=== PATIENT | male | born 1950 | race Hispanic/Latino ===

== ENCOUNTER 2018-04-14 13:51 | Emergency (ER) | payer OTHER ==
[2018-04-14] MEDS ORDERED: ASPIRIN PO ONE (14:10)
[2018-04-14 14:43] LABS: Basophils % (Auto) 0.4 % (0.0-1.8); Eosinophils % (Auto) 0.4 % (0.0-4.3); Hematocrit 41.4 % (35.5-45.6); Hemoglobin 14.1 gm/dl (11.8-15.2); Lymphocytes # (Auto) 1.2 K/mm3 (1.2-5.4); Lymphocytes % (Auto) 12.1 % (13.4-35.0); Mean Corpuscular HGB Conc 34 % (32-34); Mean Corpuscular Volume 84 fl (84-94); Monocytes # (Auto) 0.5 K/mm3 (0.0-0.8); Monocytes % (Auto) 5.6 % (0.0-7.3); Platelet Count 273 K/mm3 (140-440); Red Blood Count 4.93 M/mm3 (3.65-5.03)
[2018-04-14 14:59] LABS: BUN/Creatinine Ratio 19; Blood Urea Nitrogen 15 mg/dL (9-20); Calcium 9.1 mg/dL (8.4-10.2); Hemolysis Index 0
[2018-04-14] MEDS ORDERED: NITROSTAT SL PRN (15:47)
--- NOTE | 2018-04-14 15:47 | Emergency Department Report ---
ED General Adult HPI - General Chief complaint: Chest Pain Stated complaint: BODY PAIN Time Seen by Provider: 04/14/18 14:26 Source: patient, EMS Mode of arrival: Stretcher Limitations: Other - History of Present Illness Initial comments: Patient presents to the emergency department with chief complaint of chest pain. The patient was being escorted by [facility] police and states that his chest pain has been intermittent for the last week or so but became worse today while being arrested. Patient denies shortness of breath, abdominal pain, or headache. The patient states he thinks he has high blood pressure and diabetes. -: Gradual Location: chest Radiation: non-radiation Severity scale (0 -10): 8 Quality: other (pressure) Consistency: constant Improves with: none Worsens with: none Associated Symptoms: denies other symptoms Treatments Prior to Arrival: none - Related Data Allergies Allergy/AdvReac Type Severity Reaction Status Date / Time No Known Allergies Allergy Unverified 04/14/18 14:09 ED Review of Systems ROS: Stated complaint: BODY PAIN Other details as noted in HPI Comment: All other systems reviewed and negative Constitutional: denies: chills, fever Eyes: denies: eye pain, eye discharge, vision change ENT: denies: ear pain, throat pain Respiratory: denies: cough, shortness of breath, wheezing Cardiovascular: chest pain. denies: palpitations Endocrine: no symptoms reported Gastrointestinal: denies: abdominal pain, nausea, diarrhea Genitourinary: denies: urgency, dysuria Musculoskeletal: denies: back pain, joint swelling, arthralgia Skin: denies: rash, lesions Neurological: denies: headache, weakness, paresthesias Psychiatric: denies: anxiety, depression Hematological/Lymphatic: denies: easy bleeding, easy bruising ED Past Medical Hx - Past Medical History Previous Medical History?: Yes Additional medical history: morbid obesity - Social History Smoking Status: Never Smoker Substance Use Type: None ED Physical Exam - General Limitations: Other General appearance: alert, in no apparent distress - Head Head exam: Present: atraumatic, normocephalic - Eye Eye exam: Present: normal appearance, PERRL, EOMI - ENT ENT exam: Present: mucous membranes moist - Neck Neck exam: Present: normal inspection - Respiratory Respiratory exam: Present: normal lung sounds bilaterally. Absent: respiratory distress, wheezes, rales - Cardiovascular Cardiovascular Exam: Present: regular rate, normal rhythm. Absent: systolic murmur, diastolic murmur, rubs, gallop - GI/Abdominal GI/Abdominal exam: Present: soft, normal bowel sounds. Absent: distended, tenderness - Rectal Rectal exam: Present: deferred - Extremities Exam Extremities exam: Present: normal inspection, other (pitting edema) - Back Exam Back exam: Present: normal inspection - Neurological Exam Neurological exam: Present: alert, oriented X3, CN II-XII intact. Absent: motor sensory deficit - Psychiatric Psychiatric exam: Present: normal affect, normal mood - Skin Skin exam: Present: warm, dry, intact, normal color. Absent: rash ED Course Vital Signs 04/14/18 14:25 Temperature 97.9 F Pulse Rate 96 H Respiratory 26 H Rate Blood Pressure 126/76 [Left] O2 Sat by Pulse 98 Oximetry ED Medical Decision Making - Lab Data Result diagrams: 04/14/18 14:35 04/14/18 14:35 Lab Results 04/14/18 04/14/18 Range/Units 14:35 14:35 WBC 9.5 (4.5-11.0) K/mm3 RBC 4.93 (3.65-5.03) M/mm3 Hgb 14.1 (11.8-15.2) gm/dl Hct 41.4 (35.5-45.6) % MCV 84 (84-94) fl MCH 29 (28-32) pg MCHC 34 (32-34) % RDW 15.0 (13.2-15.2) % Plt Count 273 (140-440) K/mm3 Lymph % (Auto) 12.1 L (13.4-35.0) % [place] % (Auto) 5.6 (0.0-7.3) % Eos % (Auto) 0.4 (0.0-4.3) % Baso % (Auto) 0.4 (0.0-1.8) % Lymph # 1.2 (1.2-5.4) K/mm3 [place] # 0.5 (0.0-0.8) K/mm3 Eos # 0.0 (0.0-0.4) K/mm3 Baso # 0.0 (0.0-0.1) K/mm3 Seg Neutrophils % 81.5 H (40.0-70.0) % Seg Neutrophils # 7.8 H (1.8-7.7) K/mm3 Sodium 138 (137-145) mmol/L Potassium 4.1 (3.6-5.0) mmol/L Chloride 100.4 (98-107) mmol/L Carbon Dioxide 25 (22-30) mmol/L Anion Gap 17 mmol/L BUN 15 (9-20) mg/dL Creatinine 0.8 (0.8-1.5) mg/dL Estimated GFR > 60 ml/min BUN/Creatinine Ratio 19 % Glucose 95 (75-100) mg/dL Calcium 9.1 (8.4-10.2) mg/dL Troponin T < 0.010 (0.00-0.029) ng/mL - EKG Data -: EKG Interpreted by Me EKG shows normal: sinus rhythm Rate: normal Critical care attestation.: If time is entered above; I have spent that time in minutes in the direct care of this critically ill patient, excluding procedure time. ED Disposition Clinical Impression: Chest pain Disposition: DC-09 OP ADMIT IP TO THIS HOSP Is pt being admited?: Yes Does the pt Need Aspirin: No Condition: Fair Instructions: Chest Pain (ED) Referrals: PRIMARY CARE, [Primary Care Provider] - 3-5 Days
[2018-04-14 19:45] VITALS: BP 120/67
--- NOTE | 2018-04-14 19:58 | Consultation ---
Medications and Allergies Allergies Allergy/AdvReac Type Severity Reaction Status Date / Time No Known Allergies Allergy Unverified 04/14/18 14:09 Home Medications Medication Instructions Recorded Confirmed Last Taken Type No Known Home Medications [No 04/14/18 04/14/18 Unknown History Reported Home Medications] Active Meds: Active Medications Nitroglycerin (Nitrostat) 0.4 mg SL .Q5MIN PRN PRN Reason: Chest Pain Exam - Constitutional Vitals: Temp Pulse Resp BP Pulse Ox 97.7 F 86 17 120/67 100 04/14/18 19:15 04/14/18 19:15 04/14/18 19:15 04/14/18 19:15 04/14/18 19:15 Results - Labs CBC & Chem 7: 04/14/18 14:35 04/14/18 14:35 Labs: Abnormal lab results 04/14/18 Range/Units 14:35 Lymph % (Auto) 12.1 L (13.4-35.0) % Seg Neutrophils % 81.5 H (40.0-70.0) % Seg Neutrophils # 7.8 H (1.8-7.7) K/mm3
[2018-04-14] MEDS ORDERED: PROTONIX PO SCH (22:00)
--- NOTE | 2018-05-19 10:58 | Event Note ---
Date: 04/14/18 67 YO Male presents to ED for evaluation. Pt seen and evaluated in ED and found to have Atypical chest pain with symptoms secondary to GERD. Pt treated IAW chest pain protocol. Serial cardiac enzymes, ekg, telemetry were not indicated of acute cardiac ischemia. Pt medically optimized and back to usual state of health. Pt discharged and instructed to f/u pcp 1wk, and cardiology prn for further testing. ED Physical Exam - General Limitations: Other General appearance: alert, in no apparent distress - Head Head exam: Present: atraumatic, normocephalic - Eye Eye exam: Present: normal appearance, PERRL, EOMI - ENT ENT exam: Present: mucous membranes moist - Neck Neck exam: Present: normal inspection - Respiratory Respiratory exam: Present: normal lung sounds bilaterally. Absent: respiratory distress, wheezes, rales - Cardiovascular Cardiovascular Exam: Present: regular rate, normal rhythm. Absent: systolic murmur, diastolic murmur, rubs, gallop - GI/Abdominal GI/Abdominal exam: Present: soft, normal bowel sounds. Absent: distended, tenderness - Rectal Rectal exam: Present: deferred - Extremities Exam Extremities exam: Present: normal inspection, other (pitting edema) - Back Exam Back exam: Present: normal inspection - Neurological Exam Neurological exam: Present: alert, oriented X3, CN II-XII intact. Absent: motor sensory deficit - Psychiatric Psychiatric exam: Present: normal affect, normal mood - Skin Skin exam: Present: warm, dry, intact, normal color. Absent: rash
== END 2018-04-14 20:40 | disposition admitted as inpatient to this hospital (09) ==
LOC: ED 13:51
DX: R07.89 Other chest pain (principal); E66.01 Morbid (severe) obesity due to excess calories; Z68.45 Body mass index [BMI] 70 or greater, adult
CPT/HCPCS: 36415; 80048; 83880; 84484; 85025; 93005; 93010; 99284

== ENCOUNTER 2020-05-22 08:07 | Inpatient (IN) | payer MEDICARE, OTHER ==
[2020-05-22] MEDS ORDERED: ONDANSETRON 4 MG/2 ML INJ IM ONE (08:32)
[2020-05-22] MEDS ORDERED: MORPHINE 4 MG/1 ML INJ IM ONE (08:32)
--- NOTE | 2020-05-22 08:32 | Emergency Department Report ---
ED General Adult HPI - General Stated complaint: LT SHOULDER PAIN Time Seen by Provider: 05/22/20 08:23 - History of Present Illness Initial comments: Patient is 69 years old male, residential resident with history of CVA and right-sided hemiparesis and hypertension. Patient is bedridden. Patient brought to the emergency room via EMS from his local residential for evaluation of left shoulder pain. Patient stated that pain started few days back. Patient describes his pain as sharp and stated that he feel it in the bone. Patient denied any radiation to the chest or back or neck. Patient denied any recent injury. Patient also denied any shortness of breath, fever or cough. Patient found to be tachycardic with a blood pressure of 89/42. Sepsis protocol immediately initiated. -: days(s) - Related Data Home Medications Medication Instructions Recorded Confirmed Last Taken Povidone-Iodine [Betadine] 1 applicatio TD DAILY 05/22/20 05/22/20 Unknown Previous Rx's Medication Instructions Recorded Last Taken Type Pantoprazole [Protonix TAB] 40 mg PO BID #60 tablet 04/14/18 Unknown Rx Aspirin [Aspirin BABY CHEW TAB] 81 mg PO QDAY #60 tab.chew 11/10/19 Unknown Rx AtorvaSTATin [Lipitor] 80 mg PO QHS #60 tablet 11/10/19 Unknown Rx Clopidogrel [Plavix] 75 mg PO QDAY #60 tablet 11/10/19 Unknown Rx NIFEdipine XL [Procardia Xl] 30 mg PO Q12HR #30 tablet 11/10/19 Unknown Rx carvediloL [Coreg] 3.125 mg PO BID #60 tablet 03/22/20 Unknown Rx Allergies Allergy/AdvReac Type Severity Reaction Status Date / Time No Known Allergies Allergy Unverified 04/14/18 14:09 ED Review of Systems ROS: Stated complaint: LT SHOULDER PAIN Other details as noted in HPI Comment: All other systems reviewed and negative Constitutional: denies: chills, fever Respiratory: denies: cough, shortness of breath, SOB with exertion, wheezing Cardiovascular: denies: chest pain, palpitations, dyspnea on exertion Gastrointestinal: denies: abdominal pain, nausea, vomiting Neurological: denies: headache ED Past Medical Hx - Past Medical History Hx Hypertension: Yes Hx CVA: Yes Additional medical history: morbid obesity - Surgical History Additional Surgical History: R rib sx - Social History Smoking Status: Never Smoker - Medications Home Medications: Home Medications Medication Instructions Recorded Confirmed Last Taken Type Pantoprazole [Protonix TAB] 40 mg PO BID #60 tablet 04/14/18 05/22/20 Unknown Rx Aspirin [Aspirin BABY CHEW TAB] 81 mg PO QDAY #60 tab.chew 11/10/19 05/22/20 Unknown Rx AtorvaSTATin [Lipitor] 80 mg PO QHS #60 tablet 11/10/19 05/22/20 Unknown Rx Clopidogrel [Plavix] 75 mg PO QDAY #60 tablet 11/10/19 05/22/20 Unknown Rx NIFEdipine XL [Procardia Xl] 30 mg PO Q12HR #30 tablet 11/10/19 05/22/20 Unknown Rx carvediloL [Coreg] 3.125 mg PO BID #60 tablet 03/22/20 05/22/20 Unknown Rx Povidone-Iodine [Betadine] 1 applicatio TD DAILY 05/22/20 05/22/20 Unknown History ED Physical Exam - General General appearance: alert, in no apparent distress - Head Head exam: Present: atraumatic, normocephalic, normal inspection - Eye Eye exam: Present: normal appearance, PERRL - ENT ENT exam: Present: normal exam, normal orophraynx, mucous membranes moist - Neck Neck exam: Present: normal inspection. Absent: tenderness, meningismus - Respiratory Respiratory exam: Present: normal lung sounds bilaterally. Absent: respiratory distress, wheezes, rales, rhonchi, chest wall tenderness, accessory muscle use, decreased breath sounds, prolonged expiratory - Cardiovascular Cardiovascular Exam: Present: regular rate, normal rhythm, normal heart sounds - GI/Abdominal GI/Abdominal exam: Present: soft, normal bowel sounds. Absent: distended, tenderness, guarding, rebound, rigid, mass, bruit, pulsatile mass, hernia - Extremities Exam Extremities exam: Present: normal inspection, full ROM, normal capillary refill - Expanded Upper Extremity Exam Left Shoulder Exam: Present: normal inspection, full ROM. Absent: tenderness, swelling, abrasion, laceration, ecchymosis, deformity, crepidus, dislocation, erythema, tenderness over AC joint Upper Arm exam: Present: normal inspection, full ROM - Neurological Exam Neurological exam: Present: alert, oriented X3, motor sensory deficit (chronic) - Skin Skin exam: Present: warm ED Course Vital Signs 05/22/20 05/22/2005/22/21 08:26 08:29 08:31 Temperature 98.5 F Pulse Rate 69 Respiratory 18 Rate Blood Pressure 92/47 Blood Pressure [Left] O2 Sat by Pulse 91 100 98 Oximetry 05/22/20 05/22/20 05/22/20 08:32 08:34 08:38 Temperature Pulse Rate Respiratory 18 16 Rate Blood Pressure Blood Pressure 92/47 [Left] O2 Sat by Pulse 100 100 99 Oximetry 05/22/20 05/22/20 05/22/20 08:45 09:01 09:15 Temperature Pulse Rate 112 H 113 H 113 H Respiratory 38 H 31 H 18 Rate Blood Pressure 82/52 82/52 88/51 Blood Pressure [Left] O2 Sat by Pulse 100 Oximetry 05/22/20 05/22/20 05/22/20 09:16 09:45 10:00 Temperature Pulse Rate 111 H 95 H 93 H Respiratory 22 28 H 23 Rate Blood Pressure 87/44 Blood Pressure 88/51 87/39 [Left] O2 Sat by Pulse 93 91 Oximetry 05/22/20 05/22/20 05/22/20 10:01 10:15 10:31 Temperature Pulse Rate 88 89 88 Respiratory 21 21 21 Rate Blood Pressure 87/39 95/47 95/49 Blood Pressure 95/49 [Left] O2 Sat by Pulse 64 L 71 L 84 Oximetry 05/22/20 05/22/20 05/22/20 10:46 11:01 11:15 Temperature Pulse Rate 120 H 88 82 Respiratory 38 H 19 20 Rate Blood Pressure 82/52 95/49 78/39 Blood Pressure [Left] O2 Sat by Pulse Oximetry 05/22/20 05/22/20 05/22/20 11:31 11:45 11:47 Temperature Pulse Rate 82 88 Respiratory 17 15 Rate Blood Pressure 82/52 98/50 Blood Pressure [Left] O2 Sat by Pulse 81 L 100 Oximetry - Central Line Placement Right Femoral Consent Obtained: emergent situation Time Out Performed: Yes Patient Placed on Monitor/Pulse Ox: Yes Prep: mask, gown, gloves Central Line Prep: Povidone-Iodine 1%, Chlorhexidine scrub, sterile drapes applied Local Anesthesia Used: Lidocaine 2% Central Line Lumen Inserted: triple Reason for Insertion: Volume Resuscitation Central Line Position: good blood return, all ports aspirated, flus, sutured in place with 2-0 Dressing Applied: Tegaderm, sterile gauze/tape Patient Tolerated Procedure: well, no complications Complications: none ED Medical Decision Making - Lab Data Result diagrams: 05/22/20 09:10 05/22/20 09:10 - EKG Data -: EKG Interpreted by Me EKG shows normal: sinus rhythm Rate: tachycardia - EKG Data Interpretation: no acute changes - Radiology Data Radiology results: report reviewed - Medical Decision Making Patient is 69 years old male, residential resident with history of CVA and right-sided hemiparesis and hypertension. Patient is bedridden. Patient br ought to the emergency room via EMS from his local residential for evaluation of left shoulder pain. Patient stated that pain started few days back. Patient describes his pain as sharp and stated that he feel it in the bone. Patient denied any radiation to the chest or back or neck. Patient denied any recent injury. Patient also denied any shortness of breath, fever or cough. Patient found to be tachycardic with a blood pressure of 89/42. Sepsis protocol immediately initiated. Engel catheter draining urine with significant amount of pus. Engel catheter placed. Patient started on normal saline and Zosyn. Patient received 3 L of normal saline with no significant improvement in his blood pressure. Patient started on Levophed. I discussed the patient with , He agreed to admit the patient to medical service for further management. Critical Care Time: Yes Critical care time in (mins) excluding proc time.: 30 Critical care attestation.: If time is entered above; I have spent that time in minutes in the direct care of this critically ill patient, excluding procedure time. ED Disposition Clinical Impression: Septic shock, Acute renal failure, UTI (urinary tract infection) Disposition: OP ADMIT IP TO THIS HOSP Is pt being admited?: Yes Condition: Stable Referrals: NOE LYN MD [Primary Care Provider] - 3-5 Days
[2020-05-22] MEDS: SODIUM CHLORIDE 0.9% 1000 ML IV SOLN IV ONE ×2 (09:11→09:52)
[2020-05-22] MEDS ORDERED: PIPERACILLIN/TAZOBACTAM 3.375 3.375 GM/50 ML BAG IV ONE (09:22)
[2020-05-22 09:27] LABS: Hematocrit 26.8 % (35.5-45.6); Hemoglobin 8.7 gm/dl (11.8-15.2); Mean Corpuscular HGB Conc 33 % (32-34); Mean Corpuscular Volume 74 fl (84-94); Platelet Count 621 K/mm3 (140-440)
[2020-05-22 09:45] LABS: Albumin 2.8 g/dL (3.9-5); Bilirubin,Direct 0.3 mg/dL (0-0.2); Calcium 7.8 mg/dL (8.4-10.2)
[2020-05-22 09:46] LABS: Bilirubin,Urine NEG (Negative); Blood,Urine SM (Negative); Color,Urine Amber (Yellow); Mucus,Urine FEW /HPF; Urobilinogen,Urine < 2.0 mg/dL (<2.0)
[2020-05-22 09:47] LABS: INR 1.25 (0.87-1.13)
[2020-05-22 09:48] LABS: Partial Thromboplastin Time 47.6 Sec. (24.2-36.6)
[2020-05-22 09:49] LABS: Protein,Urine >500 mg/dL (Negative); WBC,Urine > 182.0 /HPF (0.0-6.0)
[2020-05-22 10:05] LABS: Band Neutrophils # (Manual) 0.4 K/mm3; Promyelocytes # (Manual) 59.4 K/mm3; Total Cells Counted 100
[2020-05-22 10:06] LABS: Hypochromasia 1+
[2020-05-22 10:07] LABS: Ovalocytes 1+
[2020-05-22 10:08] LABS: Chol/HDL Ratio 3.02 %
--- NOTE | 2020-05-22 10:20 | XRay Report ---
CHEST 1 VIEW 05/22/2020 9:02 AM INDICATION / CLINICAL INFORMATION: sepsis. COMPARISON: 03/16/2020 FINDINGS: SUPPORT DEVICES: None. HEART / MEDIASTINUM: Stable. LUNGS / PLEURA: No confluent infiltrates or pleural effusions. No pneumothorax. ADDITIONAL FINDINGS: No significant additional findings. IMPRESSION: 1. No acute findings. No significant interval change since prior exam. Signer Name: Delta Gillespie MD Signed: 05/22/2020 10:16 AM Workstation Name: [email or web address]
--- NOTE | 2020-05-22 10:23 | XRay Report ---
LEFT SHOULDER 3 VIEW(S) INDICATION / CLINICAL INFORMATION: shoulder pain COMPARISON: Prior chest radiograph dated 05/22/2020 FINDINGS: BONES / JOINT(S): No acute fracture or subluxation. Moderate/advanced glenohumeral arthrosis is noted with large marginal osteophytes of the humeral head. Similar arthrosis noted of the AC joint. The hu meral head is high riding. Prior surgical anchor noted of the humeral head. SOFT TISSUES: High riding humeral head likely represents rotator cuff tear. MRI would be needed for kashmir alfred characterization ADDITIONAL FINDINGS: None. Signer Name: Delta Gillespie MD Signed: 05/22/2020 10:19 AM Workstation Name: [id number]
--- NOTE | 2020-05-22 11:34 | Cat Scan Report ---
CT ABDOMEN AND PELVIS WITHOUT CONTRAST INDICATION / CLINICAL INFORMATION: ABDOMINAL PAIN. TECHNIQUE: Axial CT images were obtained through the abdomen and pelvis without IV contrast. All CT scans at is location are performed using CT dose reduction for ALARA by means of automated exposure control. COMPARISON: 03/18/2020. FINDINGS: LOWER CHEST: No acute pulmonary findings. Mild coronary artery calcifications. LIVER: Scattered calcified granuloma noted throughout the hepatic parenchyma. GALLBLADDER: Percutaneous cholecystostomy tube is in stable position since prior exam. The gallbladde r is decompressed with improvement of local inflammatory changes. There is been interval resolution o f free fluid noted along the hepatic margin extending into the paracolic gutter. BILE DUCTS: No significant abnormality. PANCREAS: No significant abnormality. SPLEEN: No significant abnormality. ADRENALS: No significant abnormality. RIGHT KIDNEY / URETER: Prominent right renal pelvis. No calcified stones or hydronephrosis. LEFT KIDNEY / URETER: Prominent left renal pelvis with multiple small layering calcified stones. No h ydronephrosis. STOMACH / SMALL BOWEL: No significant abnormality. No mechanical bowel obstruction. COLON: No significant abnormality. APPENDIX: No significant abnormality. PERITONEUM: No free fluid. No free air. No fluid collection. LYMPH NODES: No significant adenopathy. AORTA / ARTERIES: Mild atherosclerotic calcification without acute abnormality. IVC / VEINS: No significant abnormality. URINARY BLADDER: Engel catheter is noted decompressing the urinary bladder. There is significant thic kening of the urinary bladder with moderate pericystic fat stranding. There is a 1.4 cm calcified sto ne layering dependently within the posterior aspect of the urinary bladder. REPRODUCTIVE ORGANS: Persistently enlarged prostate measures 4.7 cm. ADDITIONAL FINDINGS: None. SKELETAL SYSTEM: Multilevel degenerative changes are noted of the spine. Diffuse osteopenia. No aggre ssive osseous lesions. IMPRESSION: 1. Interval development of acute cystitis. 2. Numerous small nonobstructive calcified stones noted layering dependently within the left renal pe lvis which is prominent. No definitive hydronephrosis or obstruction. No stone burden within the righ t renal collecting system. There is additional stone burden within the collapsed urinary bladder as d escribed above. 3. Percutaneous cholecystostomy tube is stable in position with improved inflammatory changes and res olution of local free fluid. Signer Name: Delta Gillespie MD Signed: 05/22/2020 11:30 AM Workstation Name: [id number]
[2020-05-22] MEDS ORDERED: ALBUTEROL 2.5 MG/3 ML NEBU IH PRN (12:14)
[2020-05-22] MEDS: NORepinephrine/NS 4 MG-250 ML 4 MG/250 ML BAG IV SCH ×3 (12:15→23:47)
--- NOTE | 2020-05-22 12:33 | History and Physical Report ---
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 Patient reports I do not feel good". Patient is lethargic and unable to provide detailed history. Patient history taken from EMS staff, ED staff, as well as halfway facility staff. As per staff the patient has experienced increased weakness, confusion and diminished oral intake over the last 2 days with persistent symptoms over the same timeframe. Patient found to have suprapubic tenderness suspected secondary to urinary tract infection as well as fever to 101.4 F. EMS was notified and upon arrival the patient was found to be in distress and subsequently transported to [facility] for further care and evaluation of the aforementioned symptoms. The patient was seen and evaluated in the emergency department. All lab and imaging studies reviewed. The patient was found to be hypotensive with a systolic blood pressure in the 80s, tachycardic. Patient found to have urinary tract infection complicated by septic shock, acute kidney injury, metabolic acidosis, as well as toxic met abolic encephalopathy. Patient admitted to ICU and initiated on sepsis protocol. Patient initiated on IV pressor support in the emergency department with mild improvement in symptoms. No further history obtainable. Patient is lethargic the time of my evaluation but has a positive gag reflex and is able to protect his airway without difficulty. Advanced care planning conducted in ED. Past History Past Medical History: hypertension, hyperlipidemia, stroke Past Surgical History: No surgical history, Other (Reviewed) Social history: . denies: smoking, alcohol abuse, prescription drug abuse Family history: hypertension Medications and Allergies Allergies Allergy/AdvReac Type Severity Reaction Status Date / Time No Known Allergies Allergy Unverified 04/14/18 14:09 Home Medications Medication Instructions Recorded Confirmed Last Taken Type Pantoprazole [Protonix TAB] 40 mg PO BID #60 tablet 04/14/18 05/22/20 Unknown Rx Aspirin [Aspirin BABY CHEW TAB] 81 mg PO QDAY #60 tab.chew 11/10/19 05/22/20 Unknown Rx AtorvaSTATin [Lipitor] 80 mg PO QHS #60 tablet 11/10/19 05/22/20 Unknown Rx Clopidogrel [Plavix] 75 mg PO QDAY #60 tablet 11/10/19 05/22/20 Unknown Rx NIFEdipine XL [Procardia Xl] 30 mg PO Q12HR #30 tablet 11/10/19 05/22/20 Unknown Rx carvediloL [Coreg] 3.125 mg PO BID #60 tablet 03/22/20 05/22/20 Unknown Rx Povidone-Iodine [Betadine] 1 applicatio TD DAILY 05/22/20 05/22/20 Unknown History Active Meds: Active Medications Acetaminophen (Acetaminophen 325 Mg Tab) 650 mg PO Q6H PRN PRN Reason: Pain, Mild (1-3) Albuterol (Albuterol 2.5 Mg/3 Ml Nebu) 2.5 mg IH Q3HRT PRN PRN Reason: Shortness Of Breath Hydromorphone HCl (Hydromorphone 1 Mg/1 Ml Inj) 0.25 mg IV Q4H PRN PRN Reason: Pain, Moderate (4-6) Norepinephrine (Levophed Drip 4 Mg/Ns 250 Ml) 4 mg in 250 mls @ 7.5 mls/hr IV TITR [facility]; Protocol Last Admin: 05/22/20 12:15 Dose: 4 mcg/min, 15 mls/hr Documented by: Cefepime HCl (Cefepime/Ns 2 Gm/100 Ml) 2 gm in 100 mls @ 200 mls/hr IV Q12H [facility]; Protocol Sodium Chloride (Sodium Chloride 0.9% 10 Ml Flush Syringe) 10 ml IV BID [facility]ANE Sodium Chloride (Sodium Chloride 0.9% 10 Ml Flush Syringe) 10 ml IV PRN PRN PRN Reason: LINE FLUSH Review of Systems ROS unobtainable: due to mental status Exam - Constitutional Vitals: Temp Pulse Resp BP Pulse Ox 98.5 F 87 19 90/39 94 05/22/20 08:29 05/22/20 12:26 05/22/20 12:26 05/22/20 12:26 05/22/20 12:19 General appearance: Present: mild distress - EENT Eyes: Present: PERRL ENT: hearing intact, clear oral mucosa - Neck Neck: Present: supple, normal ROM - Respiratory Respiratory effort: normal Respiratory: bilateral: CTA - Cardiovascular Rhythm: other (Tachycardia) Heart Sounds: Present: S1 & S2 - Extremities Extremities: pulses symmetrical, No edema Peripheral Pulses: abnormal (Capillary refill greater than 3.5 seconds) - Abdominal General gastrointestinal: Present: soft, non-tender, non-distended, normal bowel sounds Localized gastrointestinal: tender: suprapubic Male genitourinary: Present: normal - Integumentary Integumentary: Present: clear, dry, clammy, decreased turgor - Musculoskeletal Musculoskeletal: right sided weakness - Psychiatric Psychiatric: no appropriate mood/affect, no intact judgment & insight, no memory intact - Neurologic Neurologic: CNII-XII intact, no focal deficits, moves all extremities, no gait normal HEART Score - HEART Score Troponin: Troponin T 0.271 ng/mL (0.00-0.029) H* 05/22/20 09:10 Results - Labs CBC & Chem 7: 05/22/20 09:10 05/22/20 09:10 Labs: Abnormal lab results 05/22/20 05/22/20 05/22/20 Range/Units 09:10 09:10 09:10 WBC 17.9 H (4.5-11.0) K/mm3 RBC 3.60 L (3.65-5.03) M/mm3 Hgb 8.7 L (11.8-15.2) gm/dl Hct 26.8 L (35.5-45.6) % MCV 74 L (84-94) fl MCH 24 L (28-32) pg RDW 24.0 H (13.2-15.2) % Plt Count 621 H (140-440) K/mm3 Seg Neuts % (Manual) 85.0 H (40.0-70.0) % Lymphocytes % (Manual) 5.0 L (13.4-35.0) % Monocytes % (Manual) 8.0 H (0.0-7.3) % Seg Neutrophils # Man 15.2 H (1.8-7.7) K/mm3 Lymphocytes # (Manual) 0.9 L (1.2-5.4) K/mm3 Monocytes # (Manual) 1.4 H (0.0-0.8) K/mm3 PT (12.2-14.9) Sec. INR (0.87-1.13) APTT (24.2-36.6) Sec. Sodium (137-145) mmol/L Chloride (98-107) mmol/L BUN (9-20) mg/dL Creatinine (0.8-1.3) mg/dL Glucose (75-100) mg/dL Lactic Acid 3.30 H* (0.7-2.0) mmol/L Calcium (8.4-10.2) mg/dL Direct Bilirubin (0-0.2) mg/dL Alkaline Phosphatase (35-129) units/L Troponin T 0.271 H* (0.00-0.029) ng/mL NT-Pro-B Natriuret Pep (0-900) pg/mL Albumin (3.9-5) g/dL HDL Cholesterol 39 L (40-59) mg/dL Urine pH (5.0-7.0) Urine WBC (Auto) (0.0-6.0) /HPF 05/22/20 05/22/20 05/22/20 Range/Units 09:10 09:10 09:32 WBC (4.5-11.0) K/mm3 RBC (3.65-5.03) M/mm3 Hgb (11.8-15.2) gm/dl Hct (35.5-45.6) % MCV (84-94) fl MCH (28-32) pg RDW (13.2-15.2) % Plt Count (140-440) K/mm3 Seg Neuts % (Manual) (40.0-70.0) % Lymphocytes % (Manual) (13.4-35.0) % Monocytes % (Manual) (0.0-7.3) % Seg Neutrophils # Man (1.8-7.7) K/mm3 Lymphocytes # (Manual) (1.2-5.4) K/mm3 Monocytes # (Manual) (0.0-0.8) K/mm3 PT 15.5 H (12.2-14.9) Sec. INR 1.25 H (0.87-1.13) APTT 47.6 H (24.2-36.6) Sec. Sodium 136 L (137-145) mmol/L Chloride 97.2 L (98-107) mmol/L BUN 36 H (9-20) mg/dL Creatinine 3.8 H (0.8-1.3) mg/dL Glucose 133 H (75-100) mg/dL Lactic Acid (0.7-2.0) mmol/L Calcium 7.8 L (8.4-10.2) mg/dL Direct Bilirubin 0.3 H (0-0.2) mg/dL Alkaline Phosphatase 248 H (35-129) units/L Troponin T (0.00-0.029) ng/mL NT-Pro-B Natriuret Pep 1448 H (0-900) pg/mL Albumin 2.8 L (3.9-5) g/dL HDL Cholesterol (40-59) mg/dL Urine pH 8.0 H (5.0-7.0) Urine WBC (Auto) > 182.0 H (0.0-6.0) /HPF 05/22/20 Range/Units 11:42 WBC (4.5-11.0) K/mm3 RBC (3.65-5.03) M/mm3 Hgb (11.8-15.2) gm/dl Hct (35.5-45.6) % MCV (84-94) fl MCH (28-32) pg RDW (13.2-15.2) % Plt Count (140-440) K/mm3 Seg Neuts % (Manual) (40.0-70.0) % Lymphocytes % (Manual) (13.4-35.0) % Monocytes % (Manual) (0.0-7.3) % Seg Neutrophils # Man (1.8-7.7) K/mm3 Lymphocytes # (Manual) (1.2-5.4) K/mm3 Monocytes # (Manual) (0.0-0.8) K/mm3 PT (12.2-14.9) Sec. INR (0.87-1.13) APTT (24.2-36.6) Sec. Sodium (137-145) mmol/L Chloride (98-107) mmol/L BUN (9-20) mg/dL Creatinine (0.8-1.3) mg/dL Glucose (75-100) mg/dL Lactic Acid 3.70 H* (0.7-2.0) mmol/L Calcium (8.4-10.2) mg/dL Direct Bilirubin (0-0.2) mg/dL Alkaline Phosphatase (35-129) units/L Troponin T (0.00-0.029) ng/mL NT-Pro-B Natriuret Pep (0-900) pg/mL Albumin (3.9-5) g/dL HDL Cholesterol (40-59) mg/dL Urine pH (5.0-7.0) Urine WBC (Auto) (0.0-6.0) /HPF Assessment and Plan - Patient Problems (1) Septic shock Current Visit: Yes Status: Acute Plan to address problem: Sepsis protocol: CBC, CMP, chest x-ray, urinalysis, IV antibiotic therapy, blood cultures., IV pressor support, maintain mean arterial pressure greater than or equal to 65, monitor urine output every shift, serial lactic acid level. Critical care team consulted. The high probability of a clinically significant, sudden or life threatening deterioration of the [neuro, renal, infectious disease] system(s) required my full and direct attention, intervention and personal management. The aggregate critical care time was [65] minutes. This time is in addition to time spent performing reported procedures but includes the following: [x] Data Review and interpretation [x] Patient assessment and monitoring of vital signs [x] Documentation [x] Medication orders and management (2) Acidosis Current Visit: Yes Status: Acute Plan to address problem: IV fluid resuscitation therapy, BMP, repeat BMP in a.m., IV bicarbonate therapy x1. Serial lactic acid level. (3) Toxic metabolic encephalopathy Current Visit: Yes Status: Acute Plan to address problem: Supportive care, treat sepsis, IV fluid resuscitation therapy, neuro check, seizure precautions. (4) Acute renal failure Current Visit: Yes Status: Acute Qualifiers: Acute renal failure type: with acute tubular necrosis Qualified Code(s): N17.0 - Acute kidney failure with tubular necrosis Plan to address problem: IV fluid resuscitation therapy, nephrology team consulted in ED, urine electrolytes, supportive care. IV fluid resuscitation therapy. (5) UTI (urinary tract infection) Current Visit: Yes Status: Acute Qualifiers: Encounter type: initial encounter Plan to address problem: Urinalysis, CBC, IV antibiotic therapy, supportive care, blood cultures. (6) DVT prophylaxis Current Visit: Yes Status: Acute Plan to address problem: SCD to bilateral lower extremities while in bed, prophylactic anticoagulation. (7) Advance care planning Current Visit: Yes Status: Acute Plan to address problem: Disease education conducted, patient is full code, prognosis discussed, diagnosis discussed, care plan discussed, +30 minutes.
[2020-05-22] MEDS ORDERED: CEFEPIME/NS 2 GM/100 ML 2 GM/100 ML BAG IV SCH (13:00)
[2020-05-22] MEDS: CEFEPIME/NS 1 GM/100 ML 1 GM/100 ML BAG IV SCH (13:50)
[2020-05-22] MEDS ORDERED: SODIUM CHLORIDE 0.9% 1000 ML 2,000 ML IV ONE (14:27)
--- NOTE | 2020-05-22 14:46 | Consultation ---
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 Patient is lethargic and unable to provide any history. Patient was found to have suprapubic tenderness and temp of 101.4 F. In the ED patient was found to be hypotensive with a systolic blood pressure in the 80s and tachycardic. Patient was found to have Urosepsis, shock, EBENEZER and toxic metabolic encephalopathy. Patient was admitted to ICU and initiated on sepsis protocol and initiated on IV pressor. Labs significant for wbc 18, BUN 36, Creat 3.8 and Lactate 3.7. Nephrology was consulted for further evaluation. Past History Past Medical History: other (See HPI.) Medications and Allergies Allergies Allergy/AdvReac Type Severity Reaction Status Date / Time No Known Allergies Allergy Unverified 04/14/18 14:09 Home Medications Medication Instructions Recorded Confirmed Last Taken Type Pantoprazole [Protonix TAB] 40 mg PO BID #60 tablet 04/14/18 05/22/20 Unknown Rx Aspirin [Aspirin BABY CHEW TAB] 81 mg PO QDAY #60 tab.chew 11/10/19 05/22/20 Unknown Rx AtorvaSTATin [Lipitor] 80 mg PO QHS #60 tablet 11/10/19 05/22/20 Unknown Rx Clopidogrel [Plavix] 75 mg PO QDAY #60 tablet 11/10/19 05/22/20 Unknown Rx NIFEdipine XL [Procardia Xl] 30 mg PO Q12HR #30 tablet 11/10/19 05/22/20 Unknown Rx carvediloL [Coreg] 3.125 mg PO BID #60 tablet 03/22/20 05/22/20 Unknown Rx Povidone-Iodine [Betadine] 1 applicatio TD DAILY 05/22/20 05/22/20 Unknown History Active Meds: Active Medications Acetaminophen (Acetaminophen 325 Mg Tab) 650 mg PO Q6H PRN PRN Reason: Pain, Mild (1-3) Albuterol (Albuterol 2.5 Mg/3 Ml Nebu) 2.5 mg IH Q3HRT PRN PRN Reason: Shortness Of Breath Aspirin (Aspirin 81 Mg Tab Chew) 81 mg PO QDAY [facility] Atorvastatin Calcium (Atorvastatin 40 Mg Tab) 80 mg PO QHS [facility] Clopidogrel Bisulfate (Clopidogrel 75 Mg Tab) 75 mg PO QDAY [facility] Hydromorphone HCl (Hydromorphone 1 Mg/1 Ml Inj) 0.25 mg IV Q4H PRN PRN Reason: Pain, Moderate (4-6) Norepinephrine (Levophed Drip 4 Mg/Ns 250 Ml) 4 mg in 250 mls @ 7.5 mls/hr IV T ITR [facility]; Protocol Last Titration: 05/22/20 14:09 Dose: 8 mcg/min, 30 mls/hr Documented by: Cefepime HCl (Cefepime/Ns 1 Gm/100 Ml) 1 gm in 100 mls @ 200 mls/hr IV Q12H [facility]; Protocol Last Admin: 05/22/20 13:50 Dose: 200 mls/hr Documented by: Sodium Chloride (Nacl 0.9% 1000 Ml) 2,000 mls @ 999 mls/hr IV BOLUS ONE Stop: 05/22/20 16:27 Pantoprazole Sodium (Pantoprazole 40 Mg Tab) 40 mg PO BID [facility] Sodium Chloride (Sodium Chloride 0.9% 10 Ml Flush Syringe) 10 ml IV BID VANE Sodium Chloride (Sodium Chloride 0.9% 10 Ml Flush Syringe) 10 ml IV PRN PRN PRN Reason: LINE FLUSH Review of Systems ROS unobtainable: due to mental status Exam - Vital Signs Vital signs: Vital Signs Pulse Ox 91 05/22/20 08:26 Results - Lab Results 05/23/20 05:05 05/23/20 05:05 Most recent lab results Calcium 7.8 mg/dL (8.4-10.2) L 05/22/20 09:10 Assessment and Plan 1. Acute kidney injury: Vasomotor EBENEZER in the setting of septic shock. Urine studies and Renal US ordered. IV fluid boluses. Monitor renal function. Avoid nephrotoxic agents. Meds dosage based on GFR. 2. FEN: Monitor volume status and lytes. 3. Urosepsis, POA: Lactic acidosis. Broad spectrum Abx. Follow cultures. 4. Septic shock: On Levophed. 5. Toxic metabolic encephalopathy: Baseline MS is unknown. Monitor. 6. Anemia, POA: Monitor. 7. Gall bladder drain, POA. 8. Elevated blood sugar: Monitor. Subjective: Patient was seen and examined at the bedside. Examination: General appearance: well-developed, appears stated age, not in distress HEENT: ATNC, R pupil is dilated Neck: Trachea midline Respiratory: ctab Cardiology: regular, S1S2, no murmur Abdomen: soft, normoactive bowel sounds, RUQ drain, not tender, not distended Integumentary: warm and dry, no obvious rash Neurologic: lethargic, respond only to pain : Engel catheter
[2020-05-22 16:26] LABS: Creatinine,Urine 48.1 mg/dL (0.1-20.0)
[2020-05-22] MEDS ORDERED: SODIUM CHLORIDE 0.9% 1000 ML 1,000 ML IV ONE ×3 (17:04→17:08)
[2020-05-22] MEDS: PANTOPRAZOLE 40 MG TAB PO SCH (21:39)
[2020-05-22] MEDS: HEPARIN 5,000 UNIT/1 ML VIAL SUB-Q SCH (21:39)
[2020-05-23] MEDS: CEFEPIME/NS 1 GM/100 ML 1 GM/100 ML BAG IV SCH ×2 (00:32→14:44)
[2020-05-23] MEDS: NORepinephrine/NS 4 MG-250 ML 4 MG/250 ML BAG IV SCH ×8 (03:06→23:26)
--- NOTE | 2020-05-23 03:20 | Consultation ---
History of Present Illness Consult date: 05/23/20 Requesting physician: NOE LYN Reason for consult: other (Septic shock) History of present illness: HISTORY PER MEDICAL RECORDS. Patient was unable to give a reliable history at the time of my evaluation. 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 Patient reports I do not feel good". Patient is lethargic and unable to provide d etailed history. Patient history taken from EMS staff, ED staff, as well as halfway facility staff. As per staff the patient has experienced increased weakness, confusion and diminished oral intake over the last 2 days with persistent symptoms over the same timeframe. Patient found to have suprapubic tenderness suspected secondary to urinary tract infection as well as fever to 101.4 F. EMS was notified and upon arrival the patient was found to be in distress and subsequently transported to [facility] for further care and evaluation of the aforementioned symptoms. The patient was seen and evaluated in the emergency department. All lab and imaging studies reviewed. The patient was found to be hypotensive with a systolic blood pressure in the 80s, tachycardic. Patient found to have urinary tract infection complicated by septic shock, acute kidney injury, metabolic acidosis, as well as toxic metabolic encephalopathy. Patient admitted to ICU and initiated on sepsis protocol. Patient seen and examined. Vitals, labs, medications, chart and imaging reviewed. Discussed with RN at the bedside. Patient is minimally responsive, but is able to protect his airway. He is on Norepinphrine at 20mcg via a right femoral CVC. He is currently on 4L NC Past History Past Medical History: hypertension, hyperlipidemia, stroke Past Surgical History: No surgical history, Other (Reviewed) Social history: . denies: smoking, alcohol abuse, prescription drug abuse Family history: hypertension Medications and Allergies Allergies Allergy/AdvReac Type Severity Reaction Status Date / Time No Known Allergies Allergy Unverified 04/14/18 14:09 Home Medications Medication Instructions Recorded Confirmed Last Taken Type Pantoprazole [Protonix TAB] 40 mg PO BID #60 tablet 04/14/18 05/22/20 Unknown Rx Aspirin [Aspirin BABY CHEW TAB] 81 mg PO QDAY #60 tab.chew 11/10/19 05/22/20 Unknown Rx AtorvaSTATin [Lipitor] 80 mg PO QHS #60 tablet 11/10/19 05/22/20 Unknown Rx Clopidogrel [Plavix] 75 mg PO QDAY #60 tablet 11/10/19 05/22/20 Unknown Rx NIFEdipine XL [Procardia Xl] 30 mg PO Q12HR #30 tablet 11/10/19 05/22/20 Unknown Rx carvediloL [Coreg] 3.125 mg PO BID #60 tablet 03/22/20 05/22/20 Unknown Rx Povidone-Iodine [Betadine] 1 applicatio TD DAILY 05/22/20 05/22/20 Unknown History Active Meds: Active Medications Acetaminophen (Acetaminophen 325 Mg Tab) 650 mg PO Q6H PRN PRN Reason: Pain, Mild (1-3) Albuterol (Albuterol 2.5 Mg/3 Ml Nebu) 2.5 mg IH Q3HRT PRN PRN Reason: Shortness Of Breath Aspirin (Aspirin 81 Mg Tab Chew) 81 mg PO QDAY [facility] Atorvastatin Calcium (Atorvastatin 40 Mg Tab) 80 mg PO QHS [facility] Last Admin: 05/22/20 21:39 Dose: Not Given Documented by: Clopidogrel Bisulfate (Clopidogrel 75 Mg Tab) 75 mg PO QDAY [facility] Heparin Sodium (Porcine) (Heparin 5,000 Unit/1 Ml Vial) 5,000 unit SUB-Q Q12HR [facility] Last Admin: 05/22/20 21:39 Dose: 5,000 unit Documented by: Hydromorphone HCl (Hydromorphone 1 Mg/1 Ml Inj) 0.25 mg IV Q4H PRN PRN Reason: Pain, Moderate (4-6) Norepinephrine (Levophed Drip 4 Mg/Ns 250 Ml) 4 mg in 250 mls @ 7.5 mls/hr IV TITR [facility]; Protocol Last Admin: 05/23/20 03:06 Dose: 20 mcg/min, 75 mls/hr Documented by: Cefepime HCl (Cefepime/Ns 1 Gm/100 Ml) 1 gm in 100 mls @ 200 mls/hr IV Q12H [facility]; Protocol Last Admin: 05/23/20 00:32 Dose: 200 mls/hr Documented by: Pantoprazole Sodium (Pantoprazole 40 Mg Tab) 40 mg PO BID [facility] Last Admin: 05/22/20 21:39 Dose: Not Given Documented by: Sodium Chloride (Sodium Chloride 0.9% 10 Ml Flush Syringe) 10 ml IV BID [facility] Last Admin: 05/22/20 21:39 Dose: 10 ml Documented by: Sodium Chloride (Sodium Chloride 0.9% 10 Ml Flush Syringe) 10 ml IV PRN PRN PRN Reason: LINE FLUSH Review of Systems ROS unobtainable: due to mental status Physical Examination Vital signs: Vital Signs Pulse Ox 91 05/22/20 08:26 Constitutional: no acute distress, other (elderly looking male with normal respiratory effort at rest) Eyes: non-icteric ENT: oropharynx dry Neck: supple, no lymphadenopathy, no JVD Effort: normal Ascultation: Bilateral: clear Percussion: Bilateral: not dull Cardiovascular: regular rate and rhythm Gastrointestinal: normoactive bowel sounds, soft, tender (mild, LLQ, RUQ), non- distended (protuberant'), other (RUQ J-P drain) Integumentary: normal Extremities: no cyanosis, no edema, pink and warm, pulses normal Neurologic: pupils equal and round, withdraw and grimaces to pain Psychiatric: unable to assess secondary to mental status Results - Laboratory Findings CBC and BMP: 05/25/20 09:34 05/25/20 05:00 PT/INR, D-dimer PT 15.5 Sec. (12.2-14.9) H 05/22/20 09:10 INR 1.25 (0.87-1.13) H 05/22/20 09:10 Abnormal lab findings: Abnormal Labs 05/22/20 05/22/20 05/22/20 09:10 09:10 09:10 WBC 17.9 H RBC 3.60 L Hgb 8.7 L Hct 26.8 L MCV 74 L MCH 24 L RDW 24.0 H Plt Count 621 H Seg Neuts % (Manual) 85.0 H Lymphocytes % (Manual) 5.0 L Monocytes % (Manual) 8.0 H Seg Neutrophils # Man 15.2 H Lymphocytes # (Manual) 0.9 L Monocytes # (Manual) 1.4 H PT INR APTT Sodium Chloride BUN Creatinine Glucose POC Glucose Lactic Acid 3.30 H* Calcium Direct Bilirubin Alkaline Phosphatase Troponin T 0.271 H* NT-Pro-B Natriuret Pep Albumin HDL Cholesterol 39 L Urine pH Urine WBC (Auto) Urine Creatinine 05/22/20 05/22/20 05/22/20 09:10 09:10 09:32 WBC RBC Hgb Hct MCV MCH RDW Plt Count Seg Neuts % (Manual) Lymphocytes % (Manual) Monocytes % (Manual) Seg Neutrophils # Man Lymphocytes # (Manual) Monocytes # (Manual) PT 15.5 H INR 1.25 H APTT 47.6 H Sodium 136 L Chloride 97.2 L BUN 36 H Creatinine 3.8 H Glucose 133 H POC Glucose Lactic Acid Calcium 7.8 L Direct Bilirubin 0.3 H Alkaline Phosphatase 248 H Troponin T NT-Pro-B Natriuret Pep 1448 H Albumin 2.8 L HDL Cholesterol Urine pH 8.0 H Urine WBC (Auto) > 182.0 H Urine Creatinine 05/22/20 05/22/20 05/22/20 09:49 11:42 19:48 WBC RBC Hgb Hct MCV MCH RDW Plt Count Seg Neuts % (Manual) Lymphocytes % (Manual) Monocytes % (Manual) Seg Neutrophils # Man Lymphocytes # (Manual) Monocytes # (Manual) PT INR APTT Sodium Chloride BUN Creatinine Glucose POC Glucose Lactic Acid 3.70 H* 2.10 H* Calcium Direct Bilirubin Alkaline Phosphatase Troponin T NT-Pro-B Natriuret Pep Albumin HDL Cholesterol Urine pH Urine WBC (Auto) Urine Creatinine 48.1 H 05/22/20 23:27 WBC RBC Hgb Hct MCV MCH RDW Plt Count Seg Neuts % (Manual) Lymphocytes % (Manual) Monocytes % (Manual) Seg Neutrophils # Man Lymphocytes # (Manual) Monocytes # (Manual) PT INR APTT Sodium Chloride BUN Creatinine Glucose POC Glucose 124 H Lactic Acid Calcium Direct Bilirubin Alkaline Phosphatase Troponin T NT-Pro-B Natriuret Pep Albumin HDL Cholesterol Urine pH Urine WBC (Auto) Urine Creatinine - Diagnostic Findings Chest x-ray: image reviewed Assessment and Plan Septic shock Metabolic Acidosis Acute Toxic metabolic encephalopathy Acute renal failure UTI (urinary tract infection) -Wean vasopressor support for MAP>65 -continue empiric Cefepime, follow cultures and adjust antibtioic therapy as clinically indicated -Volume resuscitate while monitoring his respiraotry status closely -Titrate supplemental oxygen to keep O2 sast>90% - Accuchecks with glycemic control per SSI (While critically ill target blood glucose of 140-180 mg/dL; avoid hypoglycemia) -CXR, ABG as clinically indicated -Engel catheter in this critically ill patient with septic shock. Re-evaluate daily the need for Engel - aspiration precautions, HOB >40 -PROCESS CONTROLLER to evaluate and treat,in the interim keep NPO - prn bronchodilators with pulmonary hygiene per RT - avoid nephrotoxins, renally dose all medications - avoid benzodiazepines, reduce the possibility of delirium - prn analgesia per pain score - Maintenance of sleep-wake cycle, avoid delirium - VTE prophylaxis - PT/OT/ROM exercises - mobility protocols for pressure ulcer prevention - Monitor hemodynamics closely - continue other care per attending / other consultants .... Re-evaluate as needed CONDITION: CRITICAL PROGNOSIS: GUARDED CODE STATUS: FULL CODE The high probability of a clinically significant, sudden or life-threatening deterioration of the [G.I., renal, cardiovascular & neurologic] system(s) re quired my full and direct attention, intervention and personal management. The aggregate critical care time was [35] minutes without overlap. Time includes spent on; [x] Data Review and interpretation [x] Patient assessment and monitoring of vital signs [x] Documentation [x] Medication orders and management
[2020-05-23 05:20] LABS: Hematocrit 20.8 % (35.5-45.6); Hemoglobin 6.6 gm/dl (11.8-15.2); Mean Corpuscular HGB Conc 32 % (32-34); Mean Corpuscular Volume 76 fl (84-94); Platelet Count 546 K/mm3 (140-440); Red Blood Count 2.73 M/mm3 (3.65-5.03)
[2020-05-23 05:24] LABS: Red Cell Distribution Width 23.9 % (13.2-15.2)
[2020-05-23 05:25] LABS: Basophils # (Auto) 0.1 K/mm3 (0.0-0.1); Basophils % (Auto) 0.4 % (0.0-1.8); Eosinophils # (Auto) 0.2 K/mm3 (0.0-0.4); Eosinophils % (Auto) 0.8 % (0.0-4.3); Lymphocytes # (Auto) 2.3 K/mm3 (1.2-5.4); Lymphocytes % (Auto) 11.5 % (13.4-35.0); Monocytes # (Auto) 1.2 K/mm3 (0.0-0.8); Monocytes % (Auto) 5.8 % (0.0-7.3)
[2020-05-23 05:31] LABS: Calcium 6.8 mg/dL (8.4-10.2)
[2020-05-23] MEDS ORDERED: SODIUM CHLORIDE 0.9% 500 ML 500 ML IV ONE (06:04)
--- NOTE | 2020-05-23 08:54 | Progress Note ---
Assessment and Plan Assessment and plan: (1) Septic shock Current Visit: Yes Status: Acute Plan to address problem: Sepsis protocol: CBC, CMP, chest x-ray, urinalysis, IV antibiotic therapy, blood cultures., IV pressor support, maintain mean arterial pressure greater than or equal to 65, monitor urine output every shift, serial lactic acid level. Critical care team consulted. The high probability of a clinically significant, sudden or life threatening deterioration of the [neuro, renal, infectious disease] system(s) required my full and direct attention, intervention and personal management. The aggregate critical care time was [65] minutes. This time is in addition to time spent performing reported procedures but includes the following: [x] Data Review and interpretation [x] Patient assessment and monitoring of vital signs [x] Documentation [x] Medication orders and management (2) Acidosis Current Visit: Yes Status: Acute Plan to address problem: IV fluid resuscitation therapy, BMP, repeat BMP in a.m., IV bicarbonate therapy x1. Serial lactic acid level. (3) Toxic metabolic encephalopathy Current Visit: Yes Status: Acute Plan to address problem: Supportive care, treat sepsis, IV fluid resuscitation therapy, neuro check, seizure precautions. (4) Acute renal failure Current Visit: Yes Status: Acute Qualifiers: Acute renal failure type: with acute tubular necrosis Qualified Code(s): N17.0 - Acute kidney failure with tubular necrosis Plan to address problem: IV fluid resuscitation therapy, nephrology team consulted in ED, urine electrolytes, supportive care. IV fluid resuscitation therapy. (5) UTI (urinary tract infection) Current Visit: Yes Status: Acute Qualifiers: Encounter type: initial encounter Plan to address problem: Urinalysis, CBC, IV antibiotic therapy, supportive care, blood cultures. (6) DVT prophylaxis Current Visit: Yes Status: Acute Plan to address problem: SCD to bilateral lower extremities while in bed, prophylactic anticoagulation. (7) Advance care planning Current Visit: Yes Status: Acute Plan to address problem: Disease education conducted, patient is full code, prognosis discussed, diagnosis discussed, care plan discussed, +30 minutes. 05/23/2020 -Septic shock likely due to UTI, patient is on IV cefepime, IV fluid and pressor support. Critical care consulted -Acute renal failure, improved with IV fluids, nephrology consulted History Interval history: Patient was seen and evaluated this morning Hospitalist Physical - Physical exam Narrative exam: Not in cardiopulmonary distress. The patient appeared well nourished and normally developed. Vital signs as documented. Head exam is unremarkable. No scleral icterus . Neck is without jugular venous distension, thyromegaly, or carotid bruits. Lungs are clear to auscultation. Cardiac exam reveals regular rate and Rhythm. Abdominal exam reveals normal bowel sounds, nontender, no organomegaly. Extremities are nonedematous and both femoral and pedal pulses are normal. SKIP TRACER: Right hemiparesis - Constitutional Vitals: Temp Pulse Resp BP Pulse Ox 97.8 F 76 14 97/48 100 05/23/20 07:21 05/23/20 06:00 05/23/20 06:00 05/23/20 06:00 05/23/20 06:00 General appearance: Present: mild distress HEART Score - HEART Score Troponin: Troponin T 0.271 ng/mL (0.00-0.029) H* 05/22/20 09:10 Results - Labs CBC & Chem 7: 05/23/20 05:05 05/23/20 05:05 Labs: Laboratory Last Values WBC 20.3 K/mm3 (4.5-11.0) H 05/23/20 05:05 RBC 2.73 M/mm3 (3.65-5.03) L 05/23/20 05:05 Hgb 6.6 gm/dl (11.8-15.2) L 05/23/20 05:05 Hct 20.8 % (35.5-45.6) L D 05/23/20 05:05 MCV 76 fl (84-94) L 05/23/20 05:05 MCH 24 pg (28-32) L 05/23/20 05:05 MCHC 32 % (32-34) 05/23/20 05:05 RDW 23.9 % (13.2-15.2) H 05/23/20 05:05 Plt Count 546 K/mm3 (140-440) H 05/23/20 05:05 Lymph % (Auto) 11.5 % (13.4-35.0) L 05/23/20 05:05 Pepin % (Auto) 5.8 % (0.0-7.3) 05/23/20 05:05 Eos % (Auto) 0.8 % (0.0-4.3) 05/23/20 05:05 Baso % (Auto) 0.4 % (0.0-1.8) 05/23/20 05:05 Lymph # (Auto) 2.3 K/mm3 (1.2-5.4) 05/23/20 05:05 Pepin # (Auto) 1.2 K/mm3 (0.0-0.8) H 05/23/20 05:05 Eos # (Auto) 0.2 K/mm3 (0.0-0.4) 05/23/20 05:05 Baso # (Auto) 0.1 K/mm3 (0.0-0.1) 05/23/20 05:05 Add Manual Diff Complete 05/22/20 09:10 Total Counted 100 05/22/20 09:10 Seg Neutrophils % 81.5 % (40.0-70.0) H 05/23/20 05:05 Seg Neuts % (Manual) 85.0 % (40.0-70.0) H 05/22/20 09:10 Band Neutrophils % 2.0 % 05/22/20 09:10 Lymphocytes % (Manual) 5.0 % (13.4-35.0) L 05/22/20 09:10 Monocytes % (Manual) 8.0 % (0.0-7.3) H 05/22/20 09:10 Nucleated RBC % Not Reportable 05/22/20 09:10 Seg Neutrophils # 16.5 K/mm3 (1.8-7.7) H 05/23/20 05:05 Seg Neutrophils # Man 15.2 K/mm3 (1.8-7.7) H 05/22/20 09:10 Band Neutrophils # 0.4 K/mm3 05/22/20 09:10 Lymphocytes # (Manual) 0.9 K/mm3 (1.2-5.4) L 05/22/20 09:10 Abs React Lymphs (Man) 0.0 K/mm3 05/22/20 09:10 Monocytes # (Manual) 1.4 K/mm3 (0.0-0.8) H 05/22/20 09:10 Eosinophils # (Manual) 0.0 K/mm3 (0.0-0.4) 05/22/20 09:10 Basophils # (Manual) 0.0 K/mm3 (0.0-0.1) 05/22/20 09:10 Metamyelocytes # 0.0 K/mm3 05/22/20 09:10 Myelocytes # 0.0 K/mm3 05/22/20 09:10 Promyelocytes # 59.4 K/mm3 05/22/20 09:10 Blast Cells # 0.0 K/mm3 05/22/20 09:10 WBC Morphology Not Reportable 05/22/20 09:10 Hypersegmented Neuts Not Reportable 05/22/20 09:10 Hyposegmented Neuts Not Reportable 05/22/20 09:10 Hypogranular Neuts Not Reportable 05/22/20 09:10 Smudge Cells Not Reportable 05/22/20 09:10 Toxic Granulation Not Reportable 05/22/20 09:10 Toxic Vacuolation Not Reportable 05/22/20 09:10 Dohle Bodies Not Reportable 05/22/20 09:10 Pelger-Huet Anomaly Not Reportable 05/22/20 09:10 Lynne Rods Not Reportable 05/22/20 09:10 Platelet Estimate Not Reportable 05/22/20 09:10 Clumped Platelets Not Reportable 05/22/20 09:10 Plt Clumps, EDTA Not Reportable 05/22/20 09:10 Large Platelets Not Reportable 05/22/20 09:10 Giant Platelets Not Reportable 05/22/20 09:10 Platelet Satelliting Not Reportable 05/22/20 09:10 Plt Morphology Comment Not Reportable 05/22/20 09:10 RBC Morphology Not Reportable 05/22/20 09:10 Dimorphic RBCs Not Reportable 05/22/20 09:10 Polychromasia Not Reportable 05/22/20 09:10 Hypochromasia 1+ 05/22/20 09:10 Poikilocytosis Not Reportable 05/22/20 09:10 Anisocytosis Not Reportable 05/22/20 09:10 Microcytosis 1+ 05/22/20 09:10 Macrocytosis Not Reportable 05/22/20 09:10 Spherocytes Not Reportable 05/22/20 09:10 Pappenheimer Bodies Not Reportable 05/22/20 09:10 Sickle Cells Not Reportable 05/22/20 09:10 Target Cells Not Reportable 05/22/20 09:10 Tear Drop Cells Not Reportable 05/22/20 09:10 Ovalocytes 1+ 05/22/20 09:10 Helmet Cells Not Reportable 05/22/20 09:10 Araujo-Devine Bodies Not Reportable 05/22/20 09:10 [place] Rings Not Reportable 05/22/20 09:10 [place] Cells Not Reportable 05/22/20 09:10 Bite Cells Not Reportable 05/22/20 09:10 Crenated Cell Not Reportable 05/22/20 09:10 Elliptocytes Not Reportable 05/22/20 09:10 Acanthocytes (Spur) Not Reportable 05/22/20 09:10 Rouleaux Not Reportable 05/22/20 09:10 Hemoglobin C Crystals Not Reportable 05/22/20 09:10 Schistocytes Not Reportable 05/22/20 09:10 Malaria parasites Not Reportable 05/22/20 09:10 Chandrakant Bodies Not Reportable 05/22/20 09:10 Hem Pathologist Commnt No 05/22/20 09:10 PT 15.5 Sec. (12.2-14.9) H 05/22/20 09:10 INR 1.25 (0.87-1.13) H 05/22/20 09:10 APTT 47.6 Sec. (24.2-36.6) H 05/22/20 09:10 Sodium 145 mmol/L (137-145) D 05/23/20 05:05 Potassium 3.6 mmol/L (3.6-5.0) 05/23/20 05:05 Chloride 112.5 mmol/L (98-107) H 05/23/20 05:05 Carbon Dioxide 20 mmol/L (22-30) L 05/23/20 05:05 Anion Gap 16 mmol/L 05/23/20 05:05 BUN 26 mg/dL (9-20) H 05/23/20 05:05 Creatinine 1.8 mg/dL (0.8-1.3) H D 05/23/20 05:05 Estimated GFR 37 ml/min 05/23/20 05:05 BUN/Creatinine Ratio 14 % 05/23/20 05:05 Glucose 135 mg/dL (75-100) H 05/23/20 05:05 POC Glucose 124 mg/dL (70-105) H 05/22/20 23:27 Lactic Acid 0.90 mmol/L (0.7-2.0) 05/22/20 23:25 Calcium 6.8 mg/dL (8.4-10.2) L 05/23/20 05:05 Total Bilirubin 0.60 mg/dL (0.1-1.2) 05/22/20 09:10 Direct Bilirubin 0.3 mg/dL (0-0.2) H 05/22/20 09:10 Indirect Bilirubin 0.3 mg/dL 05/22/20 09:10 AST 13 units/L (5-40) 05/22/20 09:10 ALT 7 units/L (7-56) 05/22/20 09:10 Alkaline Phosphatase 248 units/L (35-129) H 05/22/20 09:10 Troponin T 0.271 ng/mL (0.00-0.029) H* 05/22/20 09:10 NT-Pro-B Natriuret Pep 1448 pg/mL (0-900) H 05/22/20 09:10 Total Protein 7.4 g/dL (6.3-8.2) 05/22/20 09:10 Albumin 2.8 g/dL (3.9-5) L 05/22/20 09:10 Albumin/Globulin Ratio 0.6 % 05/22/20 09:10 Triglycerides 143 mg/dL (2-149) 05/22/20 09:10 Cholesterol 118 mg/dL (50-199) 05/22/20 09:10 LDL Cholesterol Direct 55 mg/dL (50-130) 05/22/20 09:10 HDL Cholesterol 39 mg/dL (40-59) L 05/22/20 09:10 Cholesterol/HDL Ratio 3.02 % 05/22/20 09:10 Urine Color [place] (Yellow) 05/22/20 09:32 Urine Turbidity Cloudy (Clear) 05/22/20 09:32 Urine pH 8.0 (5.0-7.0) H 05/22/20 09:32 Ur Specific [place] 1.010 (1.003-1.030) 05/22/20 09:32 Urine Protein >500 mg/dL (Negative) 05/22/20 09:32 Urine Glucose (UA) Neg mg/dL (Negative) 05/22/20 09:32 Urine Ketones Neg mg/dL (Negative) 05/22/20 09:32 Urine Blood Sm (Negative) 05/22/20 09:32 Urine Nitrite Neg (Negative) 05/22/20 09:32 Urine Bilirubin Neg (Negative) 05/22/20 09:32 Urine Urobilinogen < 2.0 mg/dL (<2.0) 05/22/20 09:32 Ur Leukocyte Esterase Mod (Negative) 05/22/20 09:32 Urine WBC (Auto) > 182.0 /HPF (0.0-6.0) H 05/22/20 09:32 Urine RBC (Auto) 9.0 /HPF (0.0-6.0) 05/22/20 09:32 U Epithel Cells (Auto) 1.0 /HPF (0-13.0) 05/22/20 09:32 Urine WBC Clumps 2+ /HPF 05/22/20 09:32 Urine Mucus Few /HPF 05/22/20 09:32 Urine Creatinine 48.1 mg/dL (0.1-20.0) H 05/22/20 09:49 Urine Sodium 130 mmol/L 05/22/20 09:49 Antibody Screen Negative 05/23/20 06:10 Crossmatch See Detail 05/23/20 06:10 Microbiology: Microbiology 05/22/20 09:10 Peripheral/Venous Blood Culture - Preliminary Culture in Progress 05/22/20 09:10 Peripheral/Venous Blood Culture - Preliminary Culture in Progress Engel/IV: Voiding Method Indwelling Catheter Active Medications - Current Medications Current Medications: Generic Name Dose Route Start Last Admin Trade Name Freq PRN Reason Stop Dose Admin Acetaminophen 650 mg 05/22/20 12:31 Acetaminophen 325 Mg Tab PO Q6H PRN Pain, Mild (1-3) Albuterol 2.5 mg 05/22/20 12:14 Albuterol 2.5 Mg/3 Ml Nebu IH Q3HRT PRN Shortness Of Breath Aspirin 81 mg 05/23/20 10:00 Aspirin 81 Mg Tab Chew PO QDAY [facility] Atorvastatin Calcium 80 mg 05/22/20 22:00 05/22/20 21:39 Atorvastatin 40 Mg Tab PO Not Given QHS [facility] Clopidogrel Bisulfate 75 mg 05/23/20 10:00 Clopidogrel 75 Mg Tab PO QDAY [facility] Heparin Sodium (Porcine) 5,000 unit 05/22/20 22:00 05/22/20 21:39 Heparin 5,000 Unit/1 Ml Vial SUB-Q 5,000 unit Q12HR [facility]ANE Administration Hydromorphone HCl 0.25 mg 05/22/20 12:31 Hydromorphone 1 Mg/1 Ml Inj IV Q4H PRN Pain, Moderate (4-6) Norepinephrine 4 mg in 250 mls @ 7.5 mls/hr 05/22/20 12:30 05/23/20 06:30 Levophed Drip 4 Mg/Ns 250 Ml IV 20 mcg/min TITR VANE 75 mls/hr Administration Protocol 2 MCG/MIN Cefepime HCl 1 gm in 100 mls @ 200 mls/hr 05/22/20 13:00 05/23/20 00:32 Cefepime/Ns 1 Gm/100 Ml IV 200 mls/hr Q12H [facility]ANE Administration Protocol Pantoprazole Sodium 40 mg 05/22/20 22:00 05/22/20 21:39 Pantoprazole 40 Mg Tab PO Not Given BID VANE Sodium Chloride 10 ml 05/22/20 22:00 05/22/20 21:39 Sodium Chloride 0.9% 10 Ml Flush Syringe IV 10 ml BID VANE Administration Sodium Chloride 10 ml 05/22/20 12:14 Sodium Chloride 0.9% 10 Ml Flush Syringe IV PRN PRN LINE FLUSH
[2020-05-23] MEDS ORDERED: POVIDONE IODINE TD SCH (10:00)
[2020-05-23] MEDS ORDERED: SODIUM CHLORIDE 0.9% 250ML 250 ML ONE (10:32)
--- NOTE | 2020-05-23 10:41 | Progress Note ---
Assessment and Plan 1. Acute kidney injury: Vasomotor EBENEZER in the setting of septic shock. CT abdomen negative for hydro. ATN. S/p IV fluid boluses. Creatinine level is improving. Monitor renal function. Avoid nephrotoxic agents. Meds dosage based on GFR. 2. FEN: Monitor volume status and lytes. 3. Urosepsis, POA: Lactic acidosis. Broad spectrum Abx. Follow cultures. 4. Septic shock: On Levophed. 5. Toxic metabolic encephalopathy: Baseline MS is unknown. Monitor. 6. Anemia, POA: Transfuse prn. Monitor. 7. Gall bladder drain, POA. 8. Elevated blood sugar: Monitor. Subjective: Patient was seen and examined at the bedside. Examination: General appearance: well-developed, appears stated age, not in distress HEENT: ATNC, R pupil is dilated Neck: Trachea midline Respiratory: ctab Cardiology: regular, S1S2, no murmur Abdomen: soft, normoactive bowel sounds, RUQ drain, not tender, not distended Integumentary: warm and dry, no obvious rash Neurologic: lethargic, respond only to pain : Engel catheter Subjective Date of service: 05/23/20 Objective - Vital Signs Vital signs: Vital Signs - 12hr 05/22/20 05/22/20 05/22/20 22:45 23:00 23:15 Temperature Pulse Rate 75 73 73 Pulse Rate [ From Monitor] Respiratory 21 19 19 Rate Blood Pressure 95/51 106/49 100/51 O2 Sat by Pulse 100 100 100 Oximetry 05/22/20 05/22/20 05/22/20 23:30 23:45 23:46 Temperature Pulse Rate 78 74 73 Pulse Rate [ From Monitor] Respiratory 18 18 20 Rate Blood Pressure 109/50 108/50 109/50 O2 Sat by Pulse 100 99 100 Oximetry 05/23/20 05/23/20 05/23/20 00:00 00:01 00:15 Temperature 98.0 F Pulse Rate 77 76 73 Pulse Rate [ 79 From Monitor] Respiratory 19 18 19 Rate Blood Pressure 114/49 114/49 120/48 O2 Sat by Pulse 95 100 96 Oximetry 05/23/20 05/23/20 05/23/20 00:30 00:45 01:00 Temperature Pulse Rate 76 74 74 Pulse Rate [ From Monitor] Respiratory 21 18 20 Rate Blood Pressure 99/52 102/50 99/53 O2 Sat by Pulse 100 100 100 Oximetry 05/23/20 05/23/20 05/23/20 01:15 01:30 01:45 Temperature Pulse Rate 71 78 74 Pulse Rate [ From Monitor] Respiratory 19 19 15 Rate Blood Pressure 98/49 102/50 104/50 O2 Sat by Pulse 100 84 100 Oximetry 05/23/20 05/23/20 05/23/20 02:00 02:15 02:30 Temperature Pulse Rate 72 79 79 Pulse Rate [ From Monitor] Respiratory 20 20 15 Rate Blood Pressure 103/52 109/51 103/55 O2 Sat by Pulse 98 90 100 Oximetry 05/23/20 05/23/20 05/23/20 02:45 03:00 03:15 Temperature Pulse Rate 76 78 74 Pulse Rate [ From Monitor] Respiratory 18 14 17 Rate Blood Pressure 106/50 101/55 101/53 O2 Sat by Pulse 93 100 100 Oximetry 05/23/20 05/23/20 05/23/20 03:30 03:45 04:00 Temperature 97.7 F Pulse Rate 72 72 82 Pulse Rate [ 82 From Monitor] Respiratory 23 17 16 Rate Blood Pressure 102/53 108/51 O2 Sat by Pulse 100 95 100 Oximetry 05/23/20 05/23/20 05/23/20 04:01 04:15 04:30 Temperature Pulse Rate 90 73 73 Pulse Rate [ From Monitor] Respiratory 13 17 12 Rate Blood Pressure 108/51 93/48 98/47 O2 Sat by Pulse 100 100 100 Oximetry 05/23/20 05/23/20 05/23/20 04:45 05:00 05:15 Temperature Pulse Rate 72 88 80 Pulse Rate [ From Monitor] Respiratory 21 20 14 Rate Blood Pressure 98/47 110/55 101/50 O2 Sat by Pulse 100 56 L 100 Oximetry 05/23/20 05/23/20 05/23/20 05:30 05:45 06:00 Temperature Pulse Rate 74 81 76 Pulse Rate [ From Monitor] Respiratory 15 19 14 Rate Blood Pressure 100/48 110/52 97/48 O2 Sat by Pulse 100 87 100 Oximetry 05/23/20 05/23/20 07:21 09:29 Temperature 97.8 F Pulse Rate Pulse Rate [ From Monitor] Respiratory Rate Blood Pressure O2 Sat by Pulse 100 Oximetry - Lab 05/23/20 05:05 05/23/20 05:05 Most recent lab results Calcium 6.8 mg/dL (8.4-10.2) L 05/23/20 05:05 Urine Creatinine 48.1 mg/dL (0.1-20.0) H 05/22/20 09:49 Urine Sodium 130 mmol/L 05/22/20 09:49 Medications & Allergies - Medications Allergies/Adverse Reactions: Allergies No Known Allergies Allergy (Unverified 04/14/18 14:09) Home Medications: Home Medications Medication Instructions Recorded Confirmed Last Taken Type Pantoprazole [Protonix TAB] 40 mg PO BID #60 tablet 04/14/18 05/22/20 Unknown Rx Aspirin [Aspirin BABY CHEW TAB] 81 mg PO QDAY #60 tab.chew 11/10/19 05/22/20 Unknown Rx AtorvaSTATin [Lipitor] 80 mg PO QHS #60 tablet 11/10/19 05/22/20 Unknown Rx Clopidogrel [Plavix] 75 mg PO QDAY #60 tablet 11/10/19 05/22/20 Unknown Rx NIFEdipine XL [Procardia Xl] 30 mg PO Q12HR #30 tablet 11/10/19 05/22/20 Unknown Rx carvediloL [Coreg] 3.125 mg PO BID #60 tablet 03/22/20 05/22/20 Unknown Rx Povidone-Iodine [Betadine] 1 applicatio TD DAILY 05/22/20 05/22/20 Unknown History Active Medications: Generic Name Dose Route Start Last Admin Trade Name Freq PRN Reason Stop Dose Admin Acetaminophen 650 mg 05/22/20 12:31 Acetaminophen 325 Mg Tab PO Q6H PRN Pain, Mild (1-3) Albuterol 2.5 mg 05/22/20 12:14 Albuterol 2.5 Mg/3 Ml Nebu Q3HRT PRN Shortness Of Breath Aspirin 81 mg 05/23/20 10:00 Aspirin 81 Mg Tab Chew PO QDAY [facility] Atorvastatin Calcium 80 mg 05/22/20 22:00 05/22/20 21:39 Atorvastatin 40 Mg Tab PO Not Given QHS [facility] Clopidogrel Bisulfate 75 mg 05/23/20 10:00 Clopidogrel 75 Mg Tab PO QDAY [facility] Heparin Sodium (Porcine) 5,000 unit 05/22/20 22:00 05/22/20 21:39 Heparin 5,000 Unit/1 Ml Vial SUB-Q 5,000 unit Q12HR [facility]ANE Administration Hydromorphone HCl 0.25 mg 05/22/20 12:31 Hydromorphone 1 Mg/1 Ml Inj IV Q4H PRN Pain, Moderate (4-6) Norepinephrine 4 mg in 250 mls @ 7.5 mls/hr 05/22/20 12:30 05/23/20 09:40 Levophed Drip 4 Mg/Ns 250 Ml IV 20 mcg/min TITR VANE 75 mls/hr Administration Protocol 2 MCG/MIN Cefepime HCl 1 gm in 100 mls @ 200 mls/hr 05/22/20 13:00 05/23/20 00:32 Cefepime/Ns 1 Gm/100 Ml IV 200 mls/hr Q12H [facility] Administration Protocol Pantoprazole Sodium 40 mg 05/22/20 22:00 05/22/20 21:39 Pantoprazole 40 Mg Tab PO Not Given BID VANE Sodium Chloride 10 ml 05/22/20 22:00 05/22/20 21:39 Sodium Chloride 0.9% 10 Ml Flush Syringe IV 10 ml BID VANE Administration Sodium Chloride 10 ml 05/22/20 12:14 Sodium Chloride 0.9% 10 Ml Flush Syringe IV PRN PRN LINE FLUSH
[2020-05-23] MEDS ORDERED: SODIUM CHLORIDE 0.9% 1000 ML 1,000 ML IV SCH (11:00)
[2020-05-23] MEDS ORDERED: CALCIUM GLUCONATE 2,000 MG in SODIUM CHLORIDE 0.9% 100 ML IV ONE (11:15)
[2020-05-23] MEDS: PANTOPRAZOLE 40 MG TAB PO SCH ×2 (12:11→21:56)
[2020-05-23] MEDS: CLOPIDOGREL 75 MG TAB PO SCH (12:11)
[2020-05-23] MEDS: ASPIRIN 81 MG TAB CHEW PO SCH (12:11)
[2020-05-23] MEDS: HEPARIN 5,000 UNIT/1 ML VIAL SUB-Q SCH ×2 (12:12→21:56)
[2020-05-23 15:13] LABS: Hematocrit 26.4 % (35.5-45.6); Hemoglobin 8.4 gm/dl (11.8-15.2)
[2020-05-24] MEDS: CEFEPIME/NS 1 GM/100 ML 1 GM/100 ML BAG IV SCH ×2 (00:26→14:03)
[2020-05-24] MEDS: NORepinephrine/NS 4 MG-250 ML 4 MG/250 ML BAG IV SCH ×2 (03:04→07:38)
[2020-05-24 06:17] LABS: Hematocrit 26.5 % (35.5-45.6); Hemoglobin 8.6 gm/dl (11.8-15.2); Mean Corpuscular HGB Conc 32 % (32-34); Mean Corpuscular Volume 79 fl (84-94); Platelet Count 431 K/mm3 (140-440); Red Blood Count 3.35 M/mm3 (3.65-5.03)
[2020-05-24 06:23] LABS: Red Cell Distribution Width 23.9 % (13.2-15.2)
[2020-05-24 06:41] LABS: BUN/Creatinine Ratio 20; Blood Urea Nitrogen 18 mg/dL (9-20); Calcium 6.8 mg/dL (8.4-10.2); Hemolysis Index 5
[2020-05-24 07:09] LABS: Total Cells Counted 100
[2020-05-24 07:10] LABS: Anisocytosis 2+; Hypochromasia 1+; Platelet Estimate Consistent w Auto
[2020-05-24] MEDS: POTASSIUM CHLORIDE 20 MEQ PACKET FEEDTUBE SCH ×3 (07:37→12:20)
[2020-05-24] MEDS: MAGNESIUM SULFATE 4 GM/100 ML BAG IV SCH ×2 (07:37→12:19)
[2020-05-24] MEDS ORDERED: POTASSIUM CHLORIDE 20 MEQ PACKET FEEDTUBE SCH (08:00)
[2020-05-24] MEDS: CLOPIDOGREL 75 MG TAB PO SCH (09:34)
[2020-05-24] MEDS: HEPARIN 5,000 UNIT/1 ML VIAL SUB-Q SCH ×2 (09:34→21:43)
[2020-05-24] MEDS: PANTOPRAZOLE 40 MG TAB PO SCH ×2 (09:34→21:44)
[2020-05-24] MEDS: ASPIRIN 81 MG TAB CHEW PO SCH (09:34)
--- NOTE | 2020-05-24 09:45 | Progress Note ---
Assessment and Plan Assessment and plan: (1) Septic shock Current Visit: Yes Status: Acute Plan to address problem: Sepsis protocol: CBC, CMP, chest x-ray, urinalysis, IV antibiotic therapy, blood cultures., IV pressor support, maintain mean arterial pressure greater than or equal to 65, monitor urine output every shift, serial lactic acid level. Critical care team consulted. The high probability of a clinically significant, sudden or life threatening deterioration of the [neuro, renal, infectious disease] system(s) required my full and direct attention, intervention and personal management. The aggregate critical care time was [65] minutes. This time is in addition to time spent performing reported procedures but includes the following: [x] Data Review and interpretation [x] Patient assessment and monitoring of vital signs [x] Documentation [x] Medication orders and management (2) Acidosis Current Visit: Yes Status: Acute Plan to address problem: IV fluid resuscitation therapy, BMP, repeat BMP in a.m., IV bicarbonate therapy x1. Serial lactic acid level. (3) Toxic metabolic encephalopathy Current Visit: Yes Status: Acute Plan to address problem: Supportive care, treat sepsis, IV fluid resuscitation therapy, neuro check, seizure precautions. (4) Acute renal failure Current Visit: Yes Status: Acute Qualifiers: Acute renal failure type: with acute tubular necrosis Qualified Code(s): N17.0 - Acute kidney failure with tubular necrosis Plan to address problem: IV fluid resuscitation therapy, nephrology team consulted in ED, urine electrolytes, supportive care. IV fluid resuscitation therapy. (5) UTI (urinary tract infection) Current Visit: Yes Status: Acute Qualifiers: Encounter type: initial encounter Plan to address problem: Urinalysis, CBC, IV antibiotic therapy, supportive care, blood cultures. (6) DVT prophylaxis Current Visit: Yes Status: Acute Plan to address problem: SCD to bilateral lower extremities while in bed, prophylactic anticoagulation. (7) Advance care planning Current Visit: Yes Status: Acute Plan to address problem: Disease education conducted, patient is full code, prognosis discussed, diagnosis discussed, care plan discussed, +30 minutes. 05/23/2020 -Septic shock likely due to UTI, patient is on IV cefepime, IV fluid and pressor support. Critical care consulted -Acute renal failure, improved with IV fluids, nephrology consulted 05/24/2020 -Admitted for septic shock due to UTI, patient is on IV cefepime, IV fluids, pressor support, ID consulted. -Acute renal failure IV fluids and nephrology consult -Patient is saturating 100% on room air -Patient was alert History Interval history: Patient was seen and evaluated this morning Patient was alert Hospitalist Physical - Physical exam Narrative exam: Not in cardiopulmonary distress. The patient appeared well nourished and normally developed. Vital signs as documented. Head exam is unremarkable. No scleral icterus . Neck is without jugular venous distension, thyromegaly, or carotid bruits. Lungs are clear to auscultation. Cardiac exam reveals regular rate and Rhythm. Abdominal exam reveals normal bowel sounds, nontender, no organomegaly. Extremities are nonedematous and both femoral and pedal pulses are normal. HOT DIP PLATER: Right hemiparesis. Patient was alert. - Constitutional Vitals: Temp Pulse Resp BP Pulse Ox 98.2 F 81 15 109/53 98 05/24/20 08:00 05/24/20 08:00 05/24/20 08:00 05/24/20 08:00 05/24/20 08:00 General appearance: Present: mild distress HEART Score - HEART Score Troponin: Troponin T 0.271 ng/mL (0.00-0.029) H* 05/22/20 09:10 Results - Labs CBC & Chem 7: 05/24/20 05:45 05/24/20 05:45 Labs: Laboratory Last Values WBC 18.4 K/mm3 (4.5-11.0) H 05/24/20 05:45 RBC 3.35 M/mm3 (3.65-5.03) L 05/24/20 05:45 Hgb 8.6 gm/dl (11.8-15.2) L 05/24/20 05:45 Hct 26.5 % (35.5-45.6) L 05/24/20 05:45 MCV 79 fl (84-94) L 05/24/20 05:45 MCH 26 pg (28-32) L 05/24/20 05:45 MCHC 32 % (32-34) 05/24/20 05:45 RDW 23.9 % (13.2-15.2) H 05/24/20 05:45 Plt Count 431 K/mm3 (140-440) 05/24/20 05:45 Lymph % (Auto) 11.5 % (13.4-35.0) L 05/23/20 05:05 [place] % (Auto) 5.8 % (0.0-7.3) 05/23/20 05:05 Eos % (Auto) 0.8 % (0.0-4.3) 05/23/20 05:05 Baso % (Auto) 0.4 % (0.0-1.8) 05/23/20 05:05 Lymph # (Auto) 2.3 K/mm3 (1.2-5.4) 05/23/20 05:05 [place] # (Auto) 1.2 K/mm3 (0.0-0.8) H 05/23/20 05:05 Eos # (Auto) 0.2 K/mm3 (0.0-0.4) 05/23/20 05:05 Baso # (Auto) 0.1 K/mm3 (0.0-0.1) 05/23/20 05:05 Add Manual Diff Complete 05/24/20 05:45 Total Counted 100 05/24/20 05:45 Seg Neutrophils % 81.5 % (40.0-70.0) H 05/23/20 05:05 Seg Neuts % (Manual) 81.0 % (40.0-70.0) H 05/24/20 05:45 Band Neutrophils % 2.0 % 05/22/20 09:10 Lymphocytes % (Manual) 12.0 % (13.4-35.0) L 05/24/20 05:45 Monocytes % (Manual) 7.0 % (0.0-7.3) 05/24/20 05:45 Nucleated RBC % Not Reportable 05/24/20 05:45 Seg Neutrophils # 16.5 K/mm3 (1.8-7.7) H 05/23/20 05:05 Seg Neutrophils # Man 14.9 K/mm3 (1.8-7.7) H 05/24/20 05:45 Band Neutrophils # 0.0 K/mm3 05/24/20 05:45 Lymphocytes # (Manual) 2.2 K/mm3 (1.2-5.4) 05/24/20 05:45 Abs React Lymphs (Man) 0.0 K/mm3 05/24/20 05:45 Monocytes # (Manual) 1.3 K/mm3 (0.0-0.8) H 05/24/20 05:45 Eosinophils # (Manual) 0.0 K/mm3 (0.0-0.4) 05/24/20 05:45 Basophils # (Manual) 0.0 K/mm3 (0.0-0.1) 05/24/20 05:45 Metamyelocytes # 0.0 K/mm3 05/24/20 05:45 Myelocytes # 0.0 K/mm3 05/24/20 05:45 Promyelocytes # 0.0 K/mm3 05/24/20 05:45 Blast Cells # 0.0 K/mm3 05/24/20 05:45 WBC Morphology Not Reportable 05/24/20 05:45 Hypersegmented Neuts Not Reportable 05/24/20 05:45 Hyposegmented Neuts Not Reportable 05/24/20 05:45 Hypogranular Neuts Not Reportable 05/24/20 05:45 Smudge Cells Not Reportable 05/24/20 05:45 Toxic Granulation Not Reportable 05/24/20 05:45 Toxic Vacuolation Not Reportable 05/24/20 05:45 Dohle Bodies Not Reportable 05/24/20 05:45 Pelger-Huet Anomaly Not Reportable 05/24/20 05:45 Lynne Rods Not Reportable 05/24/20 05:45 Platelet Estimate Consistent w auto 05/24/20 05:45 Clumped Platelets Not Reportable 05/24/20 05:45 Plt Clumps, EDTA Not Reportable 05/24/20 05:45 Large Platelets Not Reportable 05/24/20 05:45 Giant Platelets Not Reportable 05/24/20 05:45 Platelet Satelliting Not Reportable 05/24/20 05:45 Plt Morphology Comment Not Reportable 05/24/20 05:45 RBC Morphology Not Reportable 05/24/20 05:45 Dimorphic RBCs Not Reportable 05/24/20 05:45 Polychromasia Not Reportable 05/24/20 05:45 Hypochromasia 1+ 05/24/20 05:45 Poikilocytosis Not Reportable 05/24/20 05:45 Anisocytosis 2+ 05/24/20 05:45 Microcytosis Not Reportable 05/24/20 05:45 Macrocytosis Not Reportable 05/24/20 05:45 Spherocytes Not Reportable 05/24/20 05:45 Pappenheimer Bodies Not Reportable 05/24/20 05:45 Sickle Cells Not Reportable 05/24/20 05:45 Target Cells Not Reportable 05/24/20 05:45 Tear Drop Cells Not Reportable 05/24/20 05:45 Ovalocytes Not Reportable 05/24/20 05:45 Helmet Cells Not Reportable 05/24/20 05:45 [place] Bodies Not Reportable 05/24/20 05:45 [place] Rings Not Reportable 05/24/20 05:45 Paul Cells Not Reportable 05/24/20 05:45 Bite Cells Not Reportable 05/24/20 05:45 Crenated Cell Not Reportable 05/24/20 05:45 Elliptocytes Not Reportable 05/24/20 05:45 Acanthocytes (Spur) Not Reportable 05/24/20 05:45 Rouleaux Not Reportable 05/24/20 05:45 Hemoglobin C Crystals Not Reportable 05/24/20 05:45 Schistocytes Not Reportable 05/24/20 05:45 Malaria parasites Not Reportable 05/24/20 05:45 Chandrakant Bodies Not Reportable 05/24/20 05:45 Hem Pathologist Commnt No 05/24/20 05:45 PT 15.5 Sec. (12.2-14.9) H 05/22/20 09:10 INR 1.25 (0.87-1.13) H 05/22/20 09:10 APTT 47.6 Sec. (24.2-36.6) H 05/22/20 09:10 Sodium 142 mmol/L (137-145) 05/24/20 05:45 Potassium 3.1 mmol/L (3.6-5.0) L 05/24/20 05:45 Chloride 109.5 mmol/L (98-107) H 05/24/20 05:45 Carbon Dioxide 24 mmol/L (22-30) 05/24/20 05:45 Anion Gap 12 mmol/L 05/24/20 05:45 BUN 18 mg/dL (9-20) 05/24/20 05:45 Creatinine 0.9 mg/dL (0.8-1.3) 05/24/20 05:45 Estimated GFR > 60 ml/min 05/24/20 05:45 BUN/Creatinine Ratio 20 % 05/24/20 05:45 Glucose 111 mg/dL (75-100) H 05/24/20 05:45 POC Glucose 91 mg/dL (70-105) 05/24/20 05:14 Lactic Acid 0.90 mmol/L (0.7-2.0) 05/22/20 23:25 Calcium 6.8 mg/dL (8.4-10.2) L 05/24/20 05:45 Phosphorus 2.80 mg/dL (2.5-4.5) 05/24/20 05:45 Magnesium 1.00 mg/dL (1.7-2.3) L 05/24/20 05:45 Total Bilirubin 0.60 mg/dL (0.1-1.2) 05/22/20 09:10 Direct Bilirubin 0.3 mg/dL (0-0.2) H 05/22/20 09:10 Indirect Bilirubin 0.3 mg/dL 05/22/20 09:10 AST 13 units/L (5-40) 05/22/20 09:10 ALT 7 units/L (7-56) 05/22/20 09:10 Alkaline Phosphatase 248 units/L (35-129) H 05/22/20 09:10 Troponin T 0.271 ng/mL (0.00-0.029) H* 05/22/20 09:10 NT-Pro-B Natriuret Pep 1448 pg/mL (0-900) H 05/22/20 09:10 Total Protein 7.4 g/dL (6.3-8.2) 05/22/20 09:10 Albumin 2.8 g/dL (3.9-5) L 05/22/20 09:10 Albumin/Globulin Ratio 0.6 % 05/22/20 09:10 Triglycerides 143 mg/dL (2-149) 05/22/20 09:10 Cholesterol 118 mg/dL (50-199) 05/22/20 09:10 LDL Cholesterol Direct 55 mg/dL (50-130) 05/22/20 09:10 HDL Cholesterol 39 mg/dL (40-59) L 05/22/20 09:10 Cholesterol/HDL Ratio 3.02 % 05/22/20 09:10 Urine Color Mckenzie (Yellow) 05/22/20 09:32 Urine Turbidity Cloudy (Clear) 05/22/20 09:32 Urine pH 8.0 (5.0-7.0) H 05/22/20 09:32 Ur Specific [place] 1.010 (1.003-1.030) 05/22/20 09:32 Urine Protein >500 mg/dL (Negative) 05/22/20 09:32 Urine Glucose (UA) Neg mg/dL (Negative) 05/22/20 09:32 Urine Ketones Neg mg/dL (Negative) 05/22/20 09:32 Urine Blood Sm (Negative) 05/22/20 09:32 Urine Nitrite Neg (Negative) 05/22/20 09:32 Urine Bilirubin Neg (Negative) 05/22/20 09:32 Urine Urobilinogen < 2.0 mg/dL (<2.0) 05/22/20 09:32 Ur Leukocyte Esterase Mod (Negative) 05/22/20 09:32 Urine WBC (Auto) > 182.0 /HPF (0.0-6.0) H 05/22/20 09:32 Urine RBC (Auto) 9.0 /HPF (0.0-6.0) 05/22/20 09:32 U Epithel Cells (Auto) 1.0 /HPF (0-13.0) 05/22/20 09:32 Urine WBC Clumps 2+ /HPF 05/22/20 09:32 Urine Mucus Few /HPF 05/22/20 09:32 Urine Creatinine 48.1 mg/dL (0.1-20.0) H 05/22/20 09:49 Urine Sodium 130 mmol/L 05/22/20 09:49 Blood Type A POSITIVE 05/23/20 06:10 Antibody Screen Negative 05/23/20 06:10 Crossmatch See Detail 05/23/20 06:10 Microbiology: Microbiology 05/22/20 09:10 Peripheral/Venous Blood Culture - Preliminary NO GROWTH AFTER 48 HOURS 05/22/20 09:10 Peripheral/Venous Blood Culture - Preliminary NO GROWTH AFTER 48 HOURS - Diagnostic Impressions Diagnostic Impressions: Echocardiogram 05/22/20 14:25 Transthoracic Echocardiogram Indication: Cardiomyopathy BP: 97/48 HR: 84 Conclusions *Global left ventricular systolic function is normal. *The estimated ejection fraction is 55-60%. *There is no evidence of aortic regurgitation. *There is no evidence of mitral regurgitation. *There is mild tricuspid regurgitation. *The right ventricular systolic pressure is calculated at 31 mmHg. Findings Left Ventricle: The left ventricular chamber size is normal. Global left ventricular wall motion and contractility are within normal limits. Global left ventricular systolic function is normal. The estimated ejection fraction is 55-60%. Abnormal left ventricular diastolic filling is observed, consistent with impaired relaxation. Right Ventricle: The right ventricle is not well visualized. Aortic Valve: Mild aortic leaflet calcification is visualized. There is no evidence of aortic regurgitation. Mitral Valve: The mitral valve leaflets are mildly thickened. There is no evidence of mitral regurgitation. Tricuspid Valve: The tricuspid valve leaflets are normal. There is mild tricuspid regurgitation. The right ventricular systolic pressure is calculated at 31 mmHg. Pulmonic Valve: The pulmonic valve is not well visualized. Pericardium: There is no pericardial effusion. Aorta: The aorta appears normal. Venous: The inferior vena cava is not visualized. Measurements Chambers 2D Name Value Normal Range IVSd (2D) 0.93 cm (0.6 - 1.1) LVPWd (2D) 0.88 cm (0.6 - 1.1) LVIDd (2D) 4.14 cm (3.7 - 5.6) LVIDs (2D) 2.84 cm (2 - 3.8) LV FS (2D) 31.49 % - EF Teichholz (2D) 59.83 % - Ao root diameter (2D) 2.95 cm (2 - 3.7) Volumes/Mass Name Value Normal Range LA ESV SP 4CH (A/L) 18.27 ml - LA ESV SP 2CH (A/L) 16.69 ml - LA ESV BP (A/L) 20.49 ml - LA ESV BP (A/L) index 9.95 ml/m2 - LA ESV SP 4CH (MOD) 16.89 ml - LA ESV SP 2CH (MOD) 16.63 ml - LA ESV BP (MOD) 19.39 ml - LA ESV BP (MOD) index 9.41 ml/m2 - Diastolic/Systolic Function Name Value Normal Range MV E-wave Vmax 0.69 m/sec - MV deceleration time 231.55 msec - MV A-wave Vmax 0.85 m/sec - MV E:A ratio 0.81 ratio - Aortic Valve Name Value Normal Range AV Vmax 1.43 m/sec - AV VTI 26.37 cm - AV peak gradient 8.16 mmHg - AV mean gradient 5.15 mmHg - LVOT diameter 2.39 cm - LVOT Vmax 0.94 m/sec - LVOT VTI 17.92 cm - LVOT peak gradient 3.5 mmHg - LVOT mean gradient 2.07 mmHg - SV LVOT 80.13 ml - NURIA (continuity Vmax) 2.93 cm2 - NURIA (continuity VTI) 3.04 cm2 - Tricuspid Valve Name Value Normal Range TR Vmax 2.63 m/sec - TR peak gradient 28 mmHg - RAP 3 mmHg - RVSP 31 mmHg - Pulmonic Valve/Qp:Qs Name Value Normal Range PV acceleration time 95.15 msec - Engel/IV: Voiding Method Indwelling Catheter Active Medications - Current Medications Current Medications: Generic Name Dose Route Start Last Admin Trade Name Freq PRN Reason Stop Dose Admin Acetaminophen 650 mg 05/22/20 12:31 Acetaminophen 325 Mg Tab PO Q6H PRN Pain, Mild (1-3) Albuterol 2.5 mg 05/22/20 12:14 Albuterol 2.5 Mg/3 Ml Nebu IH Q3HRT PRN Shortness Of Breath Aspirin 81 mg 05/23/20 10:00 05/24/20 09:34 Aspirin 81 Mg Tab Chew PO 81 mg QDAY VANE Administration Atorvastatin Calcium 80 mg 05/22/20 22:00 05/23/20 21:56 Atorvastatin 40 Mg Tab PO Not Given QHS [facility] Clopidogrel Bisulfate 75 mg 05/23/20 10:00 05/24/20 09:34 Clopidogrel 75 Mg Tab PO 75 mg QDAY VANE Administration Heparin Sodium (Porcine) 5,000 unit 05/22/20 22:00 05/24/20 09:34 Heparin 5,000 Unit/1 Ml Vial SUB-Q 5,000 unit Q12HR VANE Administration Hydromorphone HCl 0.25 mg 05/22/20 12:31 Hydromorphone 1 Mg/1 Ml Inj IV Q4H PRN Pain, Moderate (4-6) Norepinephrine 4 mg in 250 mls @ 7.5 mls/hr 05/22/20 12:30 05/24/20 07:38 Levophed Drip 4 Mg/Ns 250 Ml IV 8 mcg/min TITR VANE 30 mls/hr Administration Protocol 2 MCG/MIN Cefepime HCl 1 gm in 100 mls @ 200 mls/hr 05/22/20 13:00 05/24/20 00:26 Cefepime/Ns 1 Gm/100 Ml IV 200 mls/hr Q12H VANE Administration Protocol Sodium Chloride 1,000 mls @ 75 mls/hr 05/23/20 11:00 05/24/20 02:21 Nacl 0.9% 1000 Ml IV 75 mls/hr DIRECT VANE Administration Magnesium Sulfate 4 gm in 100 mls @ 25 mls/hr 05/24/20 08:00 05/24/20 07:37 Magnesium Sulfate 4gm/100ml IV 05/24/20 15:59 25 mls/hr Q4H VANE Administration Potassium Chloride 10 meq in 100 mls @ 100 mls/hr 05/24/20 10:00 Kcl 10meq/100ml IV 05/24/20 13:59 Q1H VANE Pantoprazole Sodium 40 mg 05/22/20 22:00 05/24/20 09:34 Pantoprazole 40 Mg Tab PO 40 mg BID VANE Administration Potassium Chloride 40 meq 05/24/20 08:00 05/24/20 09:33 Potassium Chloride 20 Meq Packet FEEDTUBE 05/24/20 12:01 Not Given Q4H VANE Sodium Chloride 10 ml 05/22/20 22:00 05/23/20 21:57 Sodium Chloride 0.9% 10 Ml Flush Syringe IV 10 ml BID VANE Administration Sodium Chloride 10 ml 05/22/20 12:14 Sodium Chloride 0.9% 10 Ml Flush Syringe IV PRN PRN LINE FLUSH
--- NOTE | 2020-05-24 09:59 | Progress Note ---
Assessment and Plan 1. Acute kidney injury: Vasomotor EBENEZER in the setting of septic shock. CT abdomen negative for hydro. ATN. S/p IV fluid boluses. Creatinine level is better. Monitor renal function. Avoid nephrotoxic agents. Meds dosage based on GFR. 2. FEN: Replete K and Mg. Monitor volume status and lytes. 3. Urosepsis, POA: Lactic acidosis. Broad spectrum Abx. Follow cultures. 4. Septic shock: Off pressors. 5. Toxic metabolic encephalopathy: Baseline MS is unknown. Monitor. 6. Anemia, POA: Transfuse prn. Monitor. 7. Gall bladder drain, POA. 8. Elevated blood sugar: Monitor. Subjective: Patient was seen and examined at the bedside. Examination: General appearance: well-developed, appears stated age, not in distress HEENT: ATNC, R pupil is dilated Neck: Trachea midline Respiratory: ctab Cardiology: regular, S1S2, no murmur Abdomen: soft, normoactive bowel sounds, RUQ drain, not tender, not distended Integumentary: warm and dry, no obvious rash Neurologic: alert, able to tell his name, R hemiplegia : Engel catheter Subjective Date of service: 05/24/20 Objective - Vital Signs Vital signs: Vital Signs - 12hr 05/23/20 05/23/20 05/23/20 22:00 22:15 22:30 Temperature Pulse Rate 75 82 84 Pulse Rate [ From Monitor] Respiratory 16 15 12 Rate Blood Pressure 128/57 126/59 125/60 O2 Sat by Pulse 91 99 100 Oximetry 05/23/20 05/23/20 05/23/20 22:45 23:00 23:15 Temperature Pulse Rate 73 73 87 Pulse Rate [ From Monitor] Respiratory 16 14 20 Rate Blood Pressure 134/57 134/56 126/62 O2 Sat by Pulse 90 90 100 Oximetry 05/23/20 05/23/20 05/23/20 23:30 23:45 23:49 Temperature 98.4 F Pulse Rate 82 79 Pulse Rate [ From Monitor] Respiratory 16 14 Rate Blood Pressure 120/60 125/58 O2 Sat by Pulse 100 98 Oximetry 05/24/20 05/24/20 05/24/20 00:00 00:15 00:30 Temperature Pulse Rate 81 73 79 Pulse Rate [ 79 From Monitor] Respiratory 17 14 14 Rate Blood Pressure 125/62 126/58 119/57 O2 Sat by Pulse 99 96 99 Oximetry 05/24/20 05/24/20 05/24/20 00:45 01:00 01:15 Temperature Pulse Rate 86 80 83 Pulse Rate [ From Monitor] Respiratory 15 14 14 Rate Blood Pressure 125/59 127/58 115/57 O2 Sat by Pulse 100 98 99 Oximetry 05/24/20 05/24/20 05/24/20 01:30 01:45 02:00 Temperature Pulse Rate 87 69 94 H Pulse Rate [ From Monitor] Respiratory 17 13 13 Rate Blood Pressure 121/59 120/57 118/63 O2 Sat by Pulse 99 96 100 Oximetry 05/24/20 05/24/20 05/24/20 02:15 02:30 02:45 Temperature Pulse Rate 78 87 84 Pulse Rate [ From Monitor] Respiratory 18 19 16 Rate Blood Pressure 117/57 120/62 118/70 O2 Sat by Pulse 99 100 99 Oximetry 05/24/20 05/24/20 05/24/20 03:00 03:15 03:18 Temperature 98.2 F Pulse Rate 71 73 Pulse Rate [ From Monitor] Respiratory 14 16 Rate Blood Pressure 123/58 121/64 O2 Sat by Pulse 96 99 Oximetry 05/24/20 05/24/20 05/24/20 03:30 03:45 04:00 Temperature Pulse Rate 77 77 82 Pulse Rate [ 83 From Monitor] Respiratory 16 15 20 Rate Blood Pressure 119/55 121/59 123/59 O2 Sat by Pulse 100 98 99 Oximetry 05/24/20 05/24/20 05/24/20 04:15 04:30 04:45 Temperature Pulse Rate 69 80 71 Pulse Rate [ From Monitor] Respiratory 15 21 10 L Rate Blood Pressure 127/56 121/59 124/52 O2 Sat by Pulse 96 99 99 Oximetry 05/24/20 05/24/20 05/24/20 05:00 05:15 05:30 Temperature Pulse Rate 73 83 78 Pulse Rate [ From Monitor] Respiratory 14 13 18 Rate Blood Pressure 123/57 128/57 123/59 O2 Sat by Pulse 99 100 99 Oximetry 05/24/20 05/24/20 05/24/20 05:45 06:00 06:15 Temperature Pulse Rate 70 87 79 Pulse Rate [ From Monitor] Respiratory 12 13 17 Rate Blood Pressure 127/59 129/65 121/60 O2 Sat by Pulse 99 100 99 Oximetry 02/23/21 02/23/21 02/23/21 06:30 06:45 07:00 Temperature Pulse Rate 67 77 82 Pulse Rate [ From Monitor] Respiratory 14 17 14 Rate Blood Pressure 123/56 123/60 117/64 O2 Sat by Pulse 100 98 99 Oximetry 05/24/20 05/24/20 05/24/20 07:15 07:30 07:45 Temperature Pulse Rate 81 69 80 Pulse Rate [ From Monitor] Respiratory 17 14 14 Rate Blood Pressure 124/63 115/57 119/62 O2 Sat by Pulse 99 99 99 Oximetry 05/24/20 08:00 Temperature 98.2 F Pulse Rate 81 Pulse Rate [ From Monitor] Respiratory 15 Rate Blood Pressure 109/53 O2 Sat by Pulse 98 Oximetry - Lab 05/24/20 05:45 05/24/20 05:45 Most recent lab results Calcium 6.8 mg/dL (8.4-10.2) L 05/24/20 05:45 Phosphorus 2.80 mg/dL (2.5-4.5) 05/24/20 05:45 Magnesium 1.00 mg/dL (1.7-2.3) L 05/24/20 05:45 Urine Creatinine 48.1 mg/dL (0.1-20.0) H 05/22/20 09:49 Urine Sodium 130 mmol/L 05/22/20 09:49 Medications & Allergies - Medications Allergies/Adverse Reactions: Allergies No Known Allergies Allergy (Unverified 04/14/18 14:09) Home Medications: Home Medications Medication Instructions Recorded Confirmed Last Taken Type Pantoprazole [Protonix TAB] 40 mg PO BID #60 tablet 04/14/18 05/22/20 Unknown Rx Aspirin [Aspirin BABY CHEW TAB] 81 mg PO QDAY #60 tab.chew 11/10/19 05/22/20 Unknown Rx AtorvaSTATin [Lipitor] 80 mg PO QHS #60 tablet 11/10/19 05/22/20 Unknown Rx Clopidogrel [Plavix] 75 mg PO QDAY #60 tablet 11/10/19 05/22/20 Unknown Rx NIFEdipine XL [Procardia Xl] 30 mg PO Q12HR #30 tablet 11/10/19 05/22/20 Unknown Rx carvediloL [Coreg] 3.125 mg PO BID #60 tablet 03/22/20 05/22/20 Unknown Rx Povidone-Iodine [Betadine] 1 applicatio TD DAILY 05/22/20 05/22/20 Unknown History Active Medications: Generic Name Dose Route Start Last Admin Trade Name Freq PRN Reason Stop Dose Admin Acetaminophen 650 mg 05/22/20 12:31 Acetaminophen 325 Mg Tab PO Q6H PRN Pain, Mild (1-3) Albuterol 2.5 mg 05/22/20 12:14 Albuterol 2.5 Mg/3 Ml Nebu IH Q3HRT PRN Shortness Of Breath Aspirin 81 mg 05/23/20 10:00 05/24/20 09:34 Aspirin 81 Mg Tab Chew PO 81 mg QDAY VANE Administration Atorvastatin Calcium 80 mg 05/22/20 22:00 05/23/20 21:56 Atorvastatin 40 Mg Tab PO Not Given QHS VANE Clopidogrel Bisulfate 75 mg 05/23/20 10:00 05/24/20 09:34 Clopidogrel 75 Mg Tab PO 75 mg QDAY VANE Administration Heparin Sodium (Porcine) 5,000 unit 05/22/20 22:00 05/24/20 09:34 Heparin 5,000 Unit/1 Ml Vial SUB-Q 5,000 unit Q12HR VANE Administration Hydromorphone HCl 0.25 mg 05/22/20 12:31 Hydromorphone 1 Mg/1 Ml Inj IV Q4H PRN Pain, Moderate (4-6) Norepinephrine 4 mg in 250 mls @ 7.5 mls/hr 05/22/20 12:30 05/24/20 07:38 Levophed Drip 4 Mg/Ns 250 Ml IV 8 mcg/min TITR VANE 30 mls/hr Administration Protocol 2 MCG/MIN Cefepime HCl 1 gm in 100 mls @ 200 mls/hr 05/22/20 13:00 05/24/20 00:26 Cefepime/Ns 1 Gm/100 Ml IV 200 mls/hr Q12H VANE Administration Protocol Sodium Chloride 1,000 mls @ 75 mls/hr 05/23/20 11:00 05/24/20 02:21 Nacl 0.9% 1000 Ml IV 75 mls/hr DIRECT VANE Administration Magnesium Sulfate 4 gm in 100 mls @ 25 mls/hr 05/24/20 08:00 05/24/20 07:37 Magnesium Sulfate 4gm/100ml IV 05/24/20 15:59 25 mls/hr Q4H VANE Administration Potassium Chloride 10 meq in 100 mls @ 100 mls/hr 05/24/20 10:00 Kcl 10meq/100ml IV 05/24/20 13:59 Q1H VANE Pantoprazole Sodium 40 mg 05/22/20 22:00 05/24/20 09:34 Pantoprazole 40 Mg Tab PO 40 mg BID VANE Administration Potassium Chloride 40 meq 05/24/20 08:00 05/24/20 09:33 Potassium Chloride 20 Meq Packet FEEDTUBE 05/24/20 12:01 Not Given Q4H VANE Sodium Chloride 10 ml 05/22/20 22:00 05/23/20 21:57 Sodium Chloride 0.9% 10 Ml Flush Syringe IV 10 ml BID VANE Administration Sodium Chloride 10 ml 05/22/20 12:14 Sodium Chloride 0.9% 10 Ml Flush Syringe IV PRN PRN LINE FLUSH
[2020-05-24] MEDS ORDERED: POTASSIUM CHLORIDE 10 MEQ 10 MEQ/100 ML BAG IV SCH (10:00)
--- NOTE | 2020-05-24 12:38 | Progress Note ---
Assessment and Plan Septic shock Metabolic Acidosis Acute Toxic metabolic encephalopathy Acute renal failure UTI (urinary tract infection) - Potassium replaced - continue IVNS @ 75 ml's/hr X 1 more liter (re: EBENEZER and hypotension / sepsis) - get general surgery input re: ? Cholostomy drain / abdominal pain) - continue empiric Cefepime (trend lactate, procalcitonin to aid clinical decision making) - continue accuchecks with glycemic control per SSI (While critically ill target blood glucose of 140-180 mg/dL; avoid hypoglycemia) - continue to wean supplemental oxygen for target O2 sat's > 90% acutely - aspiration precautions - prn bronchodilators with pulmonary hygiene per RT - avoid nephrotoxins, renally dose all medications - avoid benzodiazepine's, reduce the possibility of delirium - prn analgesia per pain score - Maintenance of sleep-wake cycle, avoid delirium - aspiration precautions - G.I. & VTE prophylaxis - PT/OT/ROM exercises - mobility protocols for pressure ulcer prophylaxis - Monitor hemodynamics closely - continue other care per attending / other consultants - discharge planning ongoing concurrently .... Re-evaluate in am & prn CONDITION: CRITICAL PROGNOSIS: GUARDED CODE STATUS: FULL CODE The high probability of a clinically significant, sudden or life-threatening deterioration of the [G.I., renal, cardiovascular & neurologic] system(s) required my full and direct attention, intervention and personal management. The aggregate critical care time was [33] minutes without overlap. Time includes spent on; [x] Data Review and interpretation [x] Patient assessment and monitoring of vital signs [x] Documentation [x] Medication orders and management Subjective Date of service: 05/24/20 Principal diagnosis: Septic shock; Metabolic Acidosis; Ac, Toxic metabolic encephalopathy; EBENEZER Interval history: Patient is seen today for: Septic shock; Metabolic Acidosis; Acute Toxic metabolic encephalopathy; Acute renal failure; UTI (urinary tract infection) Seen and examined at bedside; 24hour events reviewed; nursing and respiratory care staff consulted; no adverse overnight events reported to me; resting peacefully in bed; denies acute chest pain or other pain but tender over abdomen; no N/V/F/C; remains on Levophed drip but down to 6 dasha's/min Objective Vital Signs - 12hr 05/24/20 05/24/20 05/24/20 00:45 01:00 01:15 Temperature Pulse Rate 86 80 83 Pulse Rate [ From Monitor] Respiratory 15 14 14 Rate Blood Pressure 125/59 127/58 115/57 O2 Sat by Pulse 100 98 99 Oximetry 05/24/20 05/24/20 05/24/20 01:30 01:45 02:00 Temperature Pulse Rate 87 69 94 H Pulse Rate [ From Monitor] Respiratory 17 13 13 Rate Blood Pressure 121/59 120/57 118/63 O2 Sat by Pulse 99 96 100 Oximetry 05/24/20 05/24/20 05/24/20 02:15 02:30 02:45 Temperature Pulse Rate 78 87 84 Pulse Rate [ From Monitor] Respiratory 18 19 16 Rate Blood Pressure 117/57 120/62 118/70 O2 Sat by Pulse 99 100 99 Oximetry 05/24/20 05/24/20 05/24/20 03:00 03:15 03:18 Temperature 98.2 F Pulse Rate 71 73 Pulse Rate [ From Monitor] Respiratory 14 16 Rate Blood Pressure 123/58 121/64 O2 Sat by Pulse 96 99 Oximetry 05/24/20 05/24/20 05/24/20 03:30 03:45 04:00 Temperature Pulse Rate 77 77 82 Pulse Rate [ 83 From Monitor] Respiratory 16 15 20 Rate Blood Pressure 119/55 121/59 123/59 O2 Sat by Pulse 100 98 99 Oximetry 05/24/20 05/24/20 05/24/20 04:15 04:30 04:45 Temperature Pulse Rate 69 80 71 Pulse Rate [ From Monitor] Respiratory 15 21 10 L Rate Blood Pressure 127/56 121/59 124/52 O2 Sat by Pulse 96 99 99 Oximetry 05/24/20 05/24/20 05/24/20 05:00 05:15 05:30 Temperature Pulse Rate 73 83 78 Pulse Rate [ From Monitor] Respiratory 14 13 18 Rate Blood Pressure 123/57 128/57 123/59 O2 Sat by Pulse 99 100 99 Oximetry 05/24/20 05/24/20 05/24/20 05:45 06:00 06:15 Temperature Pulse Rate 70 87 79 Pulse Rate [ From Monitor] Respiratory 12 13 17 Rate Blood Pressure 127/59 129/65 121/60 O2 Sat by Pulse 99 100 99 Oximetry 05/24/20 05/24/20 05/24/20 06:30 06:45 07:00 Temperature Pulse Rate 67 77 82 Pulse Rate [ From Monitor] Respiratory 14 17 14 Rate Blood Pressure 123/56 123/60 117/64 O2 Sat by Pulse 100 98 99 Oximetry 05/24/20 05/24/20 05/24/20 07:15 07:30 07:45 Temperature Pulse Rate 81 69 80 Pulse Rate [ From Monitor] Respiratory 17 14 14 Rate Blood Pressure 124/63 115/57 119/62 O2 Sat by Pulse 99 99 99 Oximetry 05/24/20 05/24/20 05/24/20 08:00 08:15 08:30 Temperature 98.2 F Pulse Rate 81 81 68 Pulse Rate [ From Monitor] Respiratory 15 15 17 Rate Blood Pressure 109/53 111/55 102/54 O2 Sat by Pulse 98 98 97 Oximetry 05/24/20 05/24/20 05/24/20 08:45 09:00 09:15 Temperature Pulse Rate 77 68 80 Pulse Rate [ From Monitor] Respiratory 16 17 14 Rate Blood Pressure 112/63 103/57 113/58 O2 Sat by Pulse 100 99 99 Oximetry 05/24/20 05/24/20 05/24/20 09:30 09:45 10:00 Temperature Pulse Rate 76 73 68 Pulse Rate [ From Monitor] Respiratory 25 H 16 17 Rate Blood Pressure 113/38 114/54 112/52 O2 Sat by Pulse 100 100 99 Oximetry 05/24/20 05/24/20 05/24/20 10:15 10:30 10:45 Temperature Pulse Rate 75 65 65 Pulse Rate [ From Monitor] Respiratory 20 11 L 14 Rate Blood Pressure 111/50 108/52 107/51 O2 Sat by Pulse 98 98 99 Oximetry 05/24/20 05/24/20 05/24/20 11:00 11:15 11:30 Temperature Pulse Rate 72 70 68 Pulse Rate [ From Monitor] Respiratory 16 12 13 Rate Blood Pressure 108/51 111/53 114/52 O2 Sat by Pulse 100 99 99 Oximetry 05/24/20 05/24/20 11:56 12:00 Temperature 97.6 F Pulse Rate Pulse Rate [ From Monitor] Respiratory Rate Blood Pressure O2 Sat by Pulse 98 Oximetry Constitutional: no acute distress, other (elderly looking male with normal respiratory effort at rest) Eyes: non-icteric ENT: oropharynx dry Neck: supple, no lymphadenopathy, no JVD Effort: normal Ascultation: Bilateral: clear Percussion: Bilateral: not dull Cardiovascular: regular rate and rhythm Gastrointestinal: normoactive bowel sounds, soft, tender (mild, LLQ, RUQ), non- distended (protuberant'), other (RUQ J-P drain) Integumentary: normal Extremities: no cyanosis, no edema, pink and warm, pulses normal Neurologic: non-focal exam (grossly), pupils equal and round, CN II-XII normal, other (slow to respond) Psychiatric: other (flat affect) CBC and BMP: 05/24/20 05:45 05/24/20 05:45 ABG, PT/INR, D-dimer: PT/INR, D-dimer PT 15.5 Sec. (12.2-14.9) H 05/22/20 09:10 INR 1.25 (0.87-1.13) H 05/22/20 09:10 Abnormal lab findings: Abnormal Labs 05/22/20 05/22/20 05/22/20 09:10 09:10 09:10 WBC 17.9 H RBC 3.60 L Hgb 8.7 L Hct 26.8 L MCV 74 L MCH 24 L RDW 24.0 H Plt Count 621 H Lymph % (Auto) Pepin # (Auto) Seg Neutrophils % Seg Neuts % (Manual) 85.0 H Lymphocytes % (Manual) 5.0 L Monocytes % (Manual) 8.0 H Seg Neutrophils # Seg Neutrophils # Man 15.2 H Lymphocytes # (Manual) 0.9 L Monocytes # (Manual) 1.4 H PT INR APTT Sodium Potassium Chloride Carbon Dioxide BUN Creatinine Glucose POC Glucose Lactic Acid 3.30 H* Calcium Magnesium Direct Bilirubin Alkaline Phosphatase Troponin T 0.271 H* NT-Pro-B Natriuret Pep Albumin HDL Cholesterol 39 L Urine pH Urine WBC (Auto) Urine Creatinine Crossmatch 05/22/20 05/22/20 05/22/20 09:10 09:10 09:32 WBC RBC Hgb Hct MCV MCH RDW Plt Count Lymph % (Auto) Pepin # (Auto) Seg Neutrophils % Seg Neuts % (Manual) Lymphocytes % (Manual) Monocytes % (Manual) Seg Neutrophils # Seg Neutrophils # Man Lymphocytes # (Manual) Monocytes # (Manual) PT 15.5 H INR 1.25 H APTT 47.6 H Sodium 136 L Potassium Chloride 97.2 L Carbon Dioxide BUN 36 H Creatinine 3.8 H Glucose 133 H POC Glucose Lactic Acid Calcium 7.8 L Magnesium Direct Bilirubin 0.3 H Alkaline Phosphatase 248 H Troponin T NT-Pro-B Natriuret Pep 1448 H Albumin 2.8 L HDL Cholesterol Urine pH 8.0 H Urine WBC (Auto) > 182.0 H Urine Creatinine Crossmatch 05/22/20 05/22/20 05/22/20 09:49 11:42 19:48 WBC RBC Hgb Hct MCV MCH RDW Plt Count Lymph % (Auto) Pepin # (Auto) Seg Neutrophils % Seg Neuts % (Manual) Lymphocytes % (Manual) Monocytes % (Manual) Seg Neutrophils # Seg Neutrophils # Man Lymphocytes # (Manual) Monocytes # (Manual) PT INR APTT Sodium Potassium Chloride Carbon Dioxide BUN Creatinine Glucose POC Glucose Lactic Acid 3.70 H* 2.10 H* Calcium Magnesium Direct Bilirubin Alkaline Phosphatase Troponin T NT-Pro-B Natriuret Pep Albumin HDL Cholesterol Urine pH Urine WBC (Auto) Urine Creatinine 48.1 H Crossmatch 05/22/20 05/23/20 05/23/20 23:27 05:05 05:05 WBC 20.3 H RBC 2.73 L Hgb 6.6 L Hct 20.8 L D MCV 76 L MCH 24 L RDW 23.9 H Plt Count 546 H Lymph % (Auto) 11.5 L Pepin # (Auto) 1.2 H Seg Neutrophils % 81.5 H Seg Neuts % (Manual) Lymphocytes % (Manual) Monocytes % (Manual) Seg Neutrophils # 16.5 H Seg Neutrophils # Man Lymphocytes # (Manual) Monocytes # (Manual) PT INR APTT Sodium Potassium Chloride 112.5 H Carbon Dioxide 20 L BUN 26 H Creatinine 1.8 H D Glucose 135 H POC Glucose 124 H Lactic Acid Calcium 6.8 L Magnesium Direct Bilirubin Alkaline Phosphatase Troponin T NT-Pro-B Natriuret Pep Albumin HDL Cholesterol Urine pH Urine WBC (Auto) Urine Creatinine Crossmatch 05/23/20 05/23/20 05/23/20 05:38 06:10 11:33 WBC RBC Hgb Hct MCV MCH RDW Plt Count Lymph % (Auto) Pepin # (Auto) Seg Neutrophils % Seg Neuts % (Manual) Lymphocytes % (Manual) Monocytes % (Manual) Seg Neutrophils # Seg Neutrophils # Man Lymphocytes # (Manual) Monocytes # (Manual) PT INR APTT Sodium Potassium Chloride Carbon Dioxide BUN Creatinine Glucose POC Glucose 112 H 128 H Lactic Acid Calcium Magnesium Direct Bilirubin Alkaline Phosphatase Troponin T NT-Pro-B Natriuret Pep Albumin HDL Cholesterol Urine pH Urine WBC (Auto) Urine Creatinine Crossmatch See Detail 05/23/20 05/23/20 05/23/20 14:45 17:49 23:34 WBC RBC Hgb 8.4 L Hct 26.4 L MCV MCH RDW Plt Count Lymph % (Auto) Pepin # (Auto) Seg Neutrophils % Seg Neuts % (Manual) Lymphocytes % (Manual) Monocytes % (Manual) Seg Neutrophils # Seg Neutrophils # Man Lymphocytes # (Manual) Monocytes # (Manual) PT INR APTT Sodium Potassium Chloride Carbon Dioxide BUN Creatinine Glucose POC Glucose 112 H 116 H Lactic Acid Calcium Magnesium Direct Bilirubin Alkaline Phosphatase Troponin T NT-Pro-B Natriuret Pep Albumin HDL Cholesterol Urine pH Urine WBC (Auto) Urine Creatinine Crossmatch 05/24/20 05/24/20 05:45 05:45 WBC 18.4 H RBC 3.35 L Hgb 8.6 L Hct 26.5 L MCV 79 L MCH 26 L RDW 23.9 H Plt Count Lymph % (Auto) Pepin # (Auto) Seg Neutrophils % Seg Neuts % (Manual) 81.0 H Lymphocytes % (Manual) 12.0 L Monocytes % (Manual) Seg Neutrophils # Seg Neutrophils # Man 14.9 H Lymphocytes # (Manual) Monocytes # (Manual) 1.3 H PT INR APTT Sodium Potassium 3.1 L Chloride 109.5 H Carbon Dioxide BUN Creatinine Glucose 111 H POC Glucose Lactic Acid Calcium 6.8 L Magnesium 1.00 L Direct Bilirubin Alkaline Phosphatase Troponin T NT-Pro-B Natriuret Pep Albumin HDL Cholesterol Urine pH Urine WBC (Auto) Urine Creatinine Crossmatch Chest x-ray: image reviewed Additional Studies: 2D ECHO shows HFpEF (50-55% EF) Allied health notes reviewed: nursing
--- NOTE | 2020-05-24 15:22 | Consultation ---
History of Present Illness Consult date: 05/24/20 Chief complaint: Percutaneous cholecystostomy drain - History of present illness History of present illness: 69-year-old male with a past medical history of CAD, CVA, carotid stenosis on Plavix who presented to the emergency room from [facility] with fever. Patient was found to have acute cystitis and urinary tract infection. He was found to be hypotensive and was admitted to the ICU. He was started on IV fluids, antibiotics and pressors. Patient also noted to have a percutaneous cholecystostomy tube from her previous hospitalization at [facility] in March 2020. Patient was found to have acute cholecystitis at that time but due to medical decompensation was not a surgical candidate. He underwent placement of a percutaneous cholecystostomy drain by IR on 03/07/2020. The patient improved following drain placement and was tolerating a diet and therefore was discharged. Plan was for patient to follow-up in surgery clinic in 6 to 8 weeks to be scheduled for drain study. Patient has not had follow-up in the surgery clinic thus far. Patient is a poor historian and is not very verbal at baseline. He has been afebrile. Past History Past Medical History: CAD, stroke, other (Carotid stenosis) Past Surgical History: Other (Percutaneous cholecystostomy drain) Social history: . denies: smoking, alcohol abuse, prescription drug abuse Family history: hypertension Medications and Allergies Allergies Allergy/AdvReac Type Severity Reaction Status Date / Time No Known Allergies Allergy Unverified 04/14/18 14:09 Home Medications Medication Instructions Recorded Confirmed Last Taken Type Pantoprazole [Protonix TAB] 40 mg PO BID #60 tablet 04/14/18 05/22/20 Unknown Rx Aspirin [Aspirin BABY CHEW TAB] 81 mg PO QDAY #60 tab.chew 11/10/19 05/22/20 Unknown Rx AtorvaSTATin [Lipitor] 80 mg PO QHS #60 tablet 11/10/19 05/22/20 Unknown Rx Clopidogrel [Plavix] 75 mg PO QDAY #60 tablet 11/10/19 05/22/20 Unknown Rx NIFEdipine XL [Procardia Xl] 30 mg PO Q12HR #30 tablet 11/10/19 05/22/20 Unknown Rx carvediloL [Coreg] 3.125 mg PO BID #60 tablet 03/22/20 05/22/20 Unknown Rx Povidone-Iodine [Betadine] 1 applicatio TD DAILY 05/22/20 05/22/20 Unknown History Active Meds: Active Medications Acetaminophen (Acetaminophen 325 Mg Tab) 650 mg PO Q6H PRN PRN Reason: Pain, Mild (1-3) Albuterol (Albuterol 2.5 Mg/3 Ml Nebu) 2.5 mg IH Q3HRT PRN PRN Reason: Shortness Of Breath Aspirin (Aspirin 81 Mg Tab Chew) 81 mg PO QDAY [facility] Last Admin: 05/24/20 09:34 Dose: 81 mg Documented by: Atorvastatin Calcium (Atorvastatin 40 Mg Tab) 80 mg PO QHS [facility] Last Admin: 05/23/20 21:56 Dose: Not Given Documented by: Clopidogrel Bisulfate (Clopidogrel 75 Mg Tab) 75 mg PO QDAY [facility] Last Admin: 05/24/20 09:34 Dose: 75 mg Documented by: Heparin Sodium (Porcine) (Heparin 5,000 Unit/1 Ml Vial) 5,000 unit SUB-Q Q12HR [facility] Last Admin: 05/24/20 09:34 Dose: 5,000 unit Documented by: Hydromorphone HCl (Hydromorphone 1 Mg/1 Ml Inj) 0.25 mg IV Q4H PRN PRN Reason: Pain, Moderate (4-6) Norepinephrine (Levophed Drip 4 Mg/Ns 250 Ml) 4 mg in 250 mls @ 7.5 mls/hr IV TITR [facility]; Protocol Last Titration: 05/24/20 14:04 Dose: 6 mcg/min, 22.5 mls/hr Documented by: Cefepime HCl (Cefepime/Ns 1 Gm/100 Ml) 1 gm in 100 mls @ 200 mls/hr IV Q12H [facility] ; Protocol Last Admin: 05/24/20 14:03 Dose: 200 mls/hr Documented by: Magnesium Sulfate (Magnesium Sulfate 4gm/100ml) 4 gm in 100 mls @ 25 mls/hr IV Q4H [facility] Stop: 05/24/20 15:59 Last Admin: 05/24/20 12:19 Dose: 25 mls/hr Documented by: Sodium Chloride (Nacl 0.9% 1000 Ml) 1,000 mls @ 75 mls/hr IV DIRECT VANE Stop: 05/25/20 10:29 Pantoprazole Sodium (Pantoprazole 40 Mg Tab) 40 mg PO BID [facility] Last Admin: 05/24/20 09:34 Dose: 40 mg Documented by: Sodium Chloride (Sodium Chloride 0.9% 10 Ml Flush Syringe) 10 ml IV BID VANE Last Admin: 05/24/20 14:04 Dose: 10 ml Documented by: Sodium Chloride (Sodium Chloride 0.9% 10 Ml Flush Syringe) 10 ml IV PRN PRN PRN Reason: LINE FLUSH Review of Systems ROS unobtainable: due to mental status Exam Vital Signs Pulse Ox 91 05/22/20 08:26 Narrative exam: Gen.: Awake, alert, nonverbal. Does nod and shake head to yes and no questions respectively. No apparent distress ENT: Trachea midline. No lymphadenopathy. No scleral icterus or conjunctival pallor CV: S1, S2 present Respiratory: No audible wheezes Abdomen: Soft, nondistended. mild tenderness near right upper quadrant percutaneous drain. The drain appears patent and the site is clean, dry, intact. There is brown fluid in the collection bag with sediment. Tenderness in the suprapubic and left lower quadrant. No rebound, rigidity, guarding Extremities: No clubbing, cyanosis, edema Results - Labs 05/24/20 05:45 05/24/20 05:45 Abnormal lab results 05/23/20 05/23/20 05/23/20 Range/Units 06:10 17:49 23:34 WBC (4.5-11.0) K/mm3 RBC (3.65-5.03) M/mm3 Hgb (11.8-15.2) gm/dl Hct (35.5-45.6) % MCV (84-94) fl MCH (28-32) pg RDW (13.2-15.2) % Seg Neuts % (Manual) (40.0-70.0) % Lymphocytes % (Manual) (13.4-35.0) % Seg Neutrophils # Man (1.8-7.7) K/mm3 Monocytes # (Manual) (0.0-0.8) K/mm3 Potassium (3.6-5.0) mmol/L Chloride (98-107) mmol/L Glucose (75-100) mg/dL POC Glucose 112 H 116 H (70-105) mg/dL Calcium (8.4-10.2) mg/dL Magnesium (1.7-2.3) mg/dL Crossmatch See Detail 05/24/20 05/24/20 Range/Units 05:45 05:45 WBC 18.4 H (4.5-11.0) K/mm3 RBC 3.35 L (3.65-5.03) M/mm3 Hgb 8.6 L (11.8-15.2) gm/dl Hct 26.5 L (35.5-45.6) % MCV 79 L (84-94) fl MCH 26 L (28-32) pg RDW 23.9 H (13.2-15.2) % Seg Neuts % (Manual) 81.0 H (40.0-70.0) % Lymphocytes % (Manual) 12.0 L (13.4-35.0) % Seg Neutrophils # Man 14.9 H (1.8-7.7) K/mm3 Monocytes # (Manual) 1.3 H (0.0-0.8) K/mm3 Potassium 3.1 L (3.6-5.0) mmol/L Chloride 109.5 H (98-107) mmol/L Glucose 111 H (75-100) mg/dL POC Glucose (70-105) mg/dL Calcium 6.8 L (8.4-10.2) mg/dL Magnesium 1.00 L (1.7-2.3) mg/dL Crossmatch Diabetes panel 05/24/20 Range/Units 05:45 Sodium 142 (137-145) mmol/L Potassium 3.1 L (3.6-5.0) mmol/L Chloride 109.5 H (98-107) mmol/L Carbon Dioxide 24 (22-30) mmol/L BUN 18 (9-20) mg/dL Creatinine 0.9 (0.8-1.3) mg/dL Glucose 111 H (75-100) mg/dL Calcium 6.8 L (8.4-10.2) mg/dL Calcium panel 05/24/20 Range/Units 05:45 Calcium 6.8 L (8.4-10.2) mg/dL Phosphorus 2.80 (2.5-4.5) mg/dL Pituitary panel 05/24/20 Range/Units 05:45 Sodium 142 (137-145) mmol/L Potassium 3.1 L (3.6-5.0) mmol/L Chloride 109.5 H (98-107) mmol/L Carbon Dioxide 24 (22-30) mmol/L BUN 18 (9-20) mg/dL Creatinine 0.9 (0.8-1.3) mg/dL Glucose 111 H (75-100) mg/dL Calcium 6.8 L (8.4-10.2) mg/dL Adrenal panel 05/24/20 Range/Units 05:45 Sodium 142 (137-145) mmol/L Potassium 3.1 L (3.6-5.0) mmol/L Chloride 109.5 H (98-107) mmol/L Carbon Dioxide 24 (22-30) mmol/L BUN 18 (9-20) mg/dL Creatinine 0.9 (0.8-1.3) mg/dL Glucose 111 H (75-100) mg/dL Calcium 6.8 L (8.4-10.2) mg/dL - Imaging CT scan - abdomen: report reviewed, image reviewed CT scan - pelvis: report reviewed, image reviewed Assessment and Plan 69-year-old male with 1. Sepsis secondary to acute cystitis 2. Urinary tract infection 3. History of acute cholecystitis with placement of percutaneous cholecystostomy drain Ct A/P: Images and report independently reviewed 1. Interval development of acute cystitis 2. Numerous small nonobstructive calcified stones noted layering dependently within the left renal pelvis which is prominent. No hydronephrosis or obstruction. No stone burden within the right renal collecting systems. There is additional stone burden within the collapsed urinary bladder as described above. Percutaneous cholecystostomy drain 3. percutaneous cholecystostomy tube in stable position with improved inflammatory changes and resolution of local free fluid. Plan: 1. Ok to start diet from surgery standpoint 2. Continue medical management per 1' team and consulting services 3. Will order drain study via percutaneous cholecystostomy tube to determine patency of GB. Will remove drain if study is negative. With current medical issues, sepsis 2/2 cystitis, I do not recommend surgical intervention for GB. This can be considered as outpatient once patient is stabilized. Thank you for this consultation. Please call with any questions or concerns. Evaluation and treatment of this patient was during the time of the national and state emergency arising from COVID19 coronavirus pandemic. Treatment and procedures performed meet the current and available best practice and guidelines for patient during the COVID pandemic.
[2020-05-24] MEDS: SODIUM CHLORIDE 0.9% 1000 ML 1,000 ML IV SCH (15:29)
--- NOTE | 2020-05-24 15:48 | Consultation ---
History of Present Illness - Reason for Consult Consult date: 05/24/20 - History of Present Illness 69-year-old male past medical history CAD, CVA, carotid stenosis presented to the hospital from his [facility] with a fever. He was noted to have urinary tract infection on admission, and was hypotensive and as such brought to the ICU. He was initially placed on pressors. Of note the patient was admitted in March 2020 and at that time was found to have acute cholecystitis, however wa s not a candidate for cholecystectomy at that time. As such a cholecystostomy tube was placed with plans for follow-up with surgery as an outpatient, however that has not occurred at this time. Afebrile since admission with a white count of 18.4 is approximately stable during his admission. Blood and urine cultures no growth so far. Urine with significant pyuria. He is currently on cefepime. Imaging personally viewed: CT abdomen pelvis: Acute cystitis. Small nonobstructive stones. Improved inflammatory changes of gallbladder. Review of Systems: Bold if positive, otherwise negative General: fevers, chills, rigors HEENT: visual disturbance, diplopia, eye pain Respiratory: cough, sputum, hemoptysis, shortness of breath Cardiovascular: chest pain, syncope Gastrointestinal: nausea, vomiting, diarrhea, abdominal pain Genitourinary: dysuria, hematuria, flank pain Musculoskeletal: neck pain, back pain, joint pain, edema Neurologic: headaches, seizures Hematologic: easy bruising or bleeding Endocrine: night sweats, acute weight loss Skin: rash, jaundice, redness Psychiatric: suicidal, homicidal ideation Past History Past Medical History: CAD, stroke, other (Carotid stenosis) Past Surgical History: Other (Percutaneous cholecystostomy drain) Social history: . denies: smoking, alcohol abuse, prescription drug abuse Family history: hypertension Medications and Allergies Allergies Allergy/AdvReac Type Severity Reaction Status Date / Time No Known Allergies Allergy Unverified 04/14/18 14:09 Home Medications Medication Instructions Recorded Confirmed Last Taken Type Pantoprazole [Protonix TAB] 40 mg PO BID #60 tablet 04/14/18 05/22/20 Unknown Rx Aspirin [Aspirin BABY CHEW TAB] 81 mg PO QDAY #60 tab.chew 11/10/19 05/22/20 Unknown Rx AtorvaSTATin [Lipitor] 80 mg PO QHS #60 tablet 11/10/19 05/22/20 Unknown Rx Clopidogrel [Plavix] 75 mg PO QDAY #60 tablet 11/10/19 05/22/20 Unknown Rx NIFEdipine XL [Procardia Xl] 30 mg PO Q12HR #30 tablet 11/10/19 05/22/20 Unknown Rx carvediloL [Coreg] 3.125 mg PO BID #60 tablet 03/22/20 05/22/20 Unknown Rx Povidone-Iodine [Betadine] 1 applicatio TD DAILY 05/22/20 05/22/20 Unknown History Active Meds: Active Medications Acetaminophen (Acetaminophen 325 Mg Tab) 650 mg PO Q6H PRN PRN Reason: Pain, Mild (1-3) Albuterol (Albuterol 2.5 Mg/3 Ml Nebu) 2.5 mg IH Q3HRT PRN PRN Reason: Shortness Of Breath Aspirin (Aspirin 81 Mg Tab Chew) 81 mg PO QDAY [facility] Last Admin: 05/24/20 09:34 Dose: 81 mg Documented by: Atorvastatin Calcium (Atorvastatin 40 Mg Tab) 80 mg PO QHS [facility] Last Admin: 05/23/20 21:56 Dose: Not Given Documented by: Clopidogrel Bisulfate (Clopidogrel 75 Mg Tab) 75 mg PO QDAY [facility] Last Admin: 05/24/20 09:34 Dose: 75 mg Documented by: Heparin Sodium (Porcine) (Heparin 5,000 Unit/1 Ml Vial) 5,000 unit SUB-Q Q12HR [facility] Last Admin: 05/24/20 09:34 Dose: 5,000 unit Documented by: Hydromorphone HCl (Hydromorphone 1 Mg/1 Ml Inj) 0.25 mg IV Q4H PRN PRN Reason: Pain, Moderate (4-6) Norepinephrine (Levophed Drip 4 Mg/Ns 250 Ml) 4 mg in 250 mls @ 7.5 mls/hr IV TITR [facility]; Protocol Last Titration: 05/24/20 14:04 Dose: 6 mcg/min, 22.5 mls/hr Documented by: Cefepime HCl (Cefepime/Ns 1 Gm/100 Ml) 1 gm in 100 mls @ 200 mls/hr IV Q12H [facility]; Protocol Last Admin: 05/24/20 14:03 Dose: 200 mls/hr Documented by: Magnesium Sulfate (Magnesium Sulfate 4gm/100ml) 4 gm in 100 mls @ 25 mls/hr IV Q4H [facility] Stop: 05/24/20 15:59 Last Admin: 05/24/20 12:19 Dose: 25 mls/hr Documented by: Sodium Chloride (Nacl 0.9% 1000 Ml) 1,000 mls @ 75 mls/hr IV DIRECT [facility] Stop: 05/25/20 10:29 Last Admin: 05/24/20 15:29 Dose: 75 mls/hr Documented by: Pantoprazole Sodium (Pantoprazole 40 Mg Tab) 40 mg PO BID [facility] Last Admin: 05/24/20 09:34 Dose: 40 mg Documented by: Sodium Chloride (Sodium Chloride 0.9% 10 Ml Flush Syringe) 10 ml IV BID [facility] Last Admin: 05/24/20 14:04 Dose: 10 ml Documented by: Sodium Chloride (Sodium Chloride 0.9% 10 Ml Flush Syringe) 10 ml IV PRN PRN PRN Reason: LINE FLUSH Physical Examination - Physical Exam Narrative exam: Physical Exam: Constitutional: Alert, cooperative. No acute distress Head, Ears, Nose: Normocephalic, atraumatic. External ears, nose normal Eyes: Conjunctivae/corneas clear. No icterus. No ptosis. Neck: Supple, no meningeal signs Oral: dentition fair, no thrush Cardiovascular: S1, S2 normal. Respiratory: Good air entry, clear to auscultation bilaterally GI: Soft, non-tender; bowel sounds normal. No peritoneal signs. +cholecystostomy tube Musculoskeletal: No pedal edema, no cyanosis. Skin: No rash or abscess Hem/Lymphatic: No palpable cervical or supraclavicular nodes. No lymphangitis Psych: Mood ok. Affect normal Neurological: Awake, alert, oriented. No gross abnormality - Constitutional Vitals: Vital Signs Temp Pulse Resp BP Pulse Ox 97.6 F 76 17 102/51 100 05/24/20 12:00 05/24/20 15:16 05/24/20 14:15 05/24/20 14:15 05/24/20 14:15 Temperature -Last 24 Hours Temperature 97.6 F Temperature 98.2 F Temperature 98.2 F Temperature 98.4 F Temperature 99.1 F Temperature 97.8 F Results - Labs CBC & Chem 7: 05/24/20 05:45 05/24/20 05:45 Labs: Abnormal lab results 05/23/20 05/23/2005/23/21 Range/Units 06:10 17:49 23:34 WBC (4.5-11.0) K/mm3 RBC (3.65-5.03) M/mm3 Hgb (11.8-15.2) gm/dl Hct (35.5-45.6) % MCV (84-94) fl MCH (28-32) pg RDW (13.2-15.2) % Seg Neuts % (Manual) (40.0-70.0) % Lymphocytes % (Manual) (13.4-35.0) % Seg Neutrophils # Man (1.8-7.7) K/mm3 Monocytes # (Manual) (0.0-0.8) K/mm3 Potassium (3.6-5.0) mmol/L Chloride (98-107) mmol/L Glucose (75-100) mg/dL POC Glucose 112 H 116 H (70-105) mg/dL Calcium (8.4-10.2) mg/dL Magnesium (1.7-2.3) mg/dL Crossmatch See Detail 05/24/20 05/24/20 Range/Units 05:45 05:45 WBC 18.4 H (4.5-11.0) K/mm3 RBC 3.35 L (3.65-5.03) M/mm3 Hgb 8.6 L (11.8-15.2) gm/dl Hct 26.5 L (35.5-45.6) % MCV 79 L (84-94) fl MCH 26 L (28-32) pg RDW 23.9 H (13.2-15.2) % Seg Neuts % (Manual) 81.0 H (40.0-70.0) % Lymphocytes % (Manual) 12.0 L (13.4-35.0) % Seg Neutrophils # Man 14.9 H (1.8-7.7) K/mm3 Monocytes # (Manual) 1.3 H (0.0-0.8) K/mm3 Potassium 3.1 L (3.6-5.0) mmol/L Chloride 109.5 H (98-107) mmol/L Glucose 111 H (75-100) mg/dL POC Glucose (70-105) mg/dL Calcium 6.8 L (8.4-10.2) mg/dL Magnesium 1.00 L (1.7-2.3) mg/dL Crossmatch Assessment and Plan Cultures: Blood culture no growth so far Urine culture no growth so far A/P: 69-year-old man past medical history CAD, CVA admitted with here from [facility]. #Acute cystitis: With significant pyuria, seen on CT scan. Cultures no growth so far, with normal skin merry only #EBENEZER: Resolved #Cholecystitis: Improved inflammation seen on CT, cholecystostomy tube in place. Recs: -Increase cefepime to 2 g every 8 hours -Continue to follow white count. Thank you for the consult, we will continue to follow. Thuan Peguero MD [facility] ([facility] O: [phone] F: [phone]
[2020-05-24] MEDS: HYDROmorphone 1 MG/1 ML INJ IV PRN (20:42)
[2020-05-25] MEDS: DEXTROSE 50% IN WATER (25GM) 50 ML SYRINGE IV PRN ×4 (00:21→23:59)
[2020-05-25] MEDS: CEFEPIME/NS 1 GM/100 ML 1 GM/100 ML BAG IV SCH (00:22)
[2020-05-25 06:27] LABS: BUN/Creatinine Ratio 15; Blood Urea Nitrogen 12 mg/dL (9-20); Calcium 7.2 mg/dL (8.4-10.2); Hemolysis Index 2
--- NOTE | 2020-05-25 08:52 | Progress Note ---
Assessment and Plan Assessment and plan: (1) Septic shock Current Visit: Yes Status: Acute Plan to address problem: Sepsis protocol: CBC, CMP, chest x-ray, urinalysis, IV antibiotic therapy, blood cultures., IV pressor support, maintain mean arterial pressure greater than or equal to 65, monitor urine output every shift, serial lactic acid level. Critical care team consulted. The high probability of a clinically significant, sudden or life threatening deterioration of the [neuro, renal, infectious disease] system(s) required my full and direct attention, intervention and personal management. The aggregate critical care time was [65] minutes. This time is in addition to time spent performing reported procedures but includes the following: [x] Data Review and interpretation [x] Patient assessment and monitoring of vital signs [x] Documentation [x] Medication orders and management (2) Acidosis Current Visit: Yes Status: Acute Plan to address problem: IV fluid resuscitation therapy, BMP, repeat BMP in a.m., IV bicarbonate therapy x1. Serial lactic acid level. (3) Toxic metabolic encephalopathy Current Visit: Yes Status: Acute Plan to address problem: Supportive care, treat sepsis, IV fluid resuscitation therapy, neuro check, seizure precautions. (4) Acute renal failure Current Visit: Yes Status: Acute Qualifiers: Acute renal failure type: with acute tubular necrosis Qualified Code(s): N17.0 - Acute kidney failure with tubular necrosis Plan to address problem: IV fluid resuscitation therapy, nephrology team consulted in ED, urine electrolytes, supportive care. IV fluid resuscitation therapy. (5) UTI (urinary tract infection) Current Visit: Yes Status: Acute Qualifiers: Encounter type: initial encounter Plan to address problem: Urinalysis, CBC, IV antibiotic therapy, supportive care, blood cultures. (6) DVT prophylaxis Current Visit: Yes Status: Acute Plan to address problem: SCD to bilateral lower extremities while in bed, prophylactic anticoagulation. (7) Advance care planning Current Visit: Yes Status: Acute Plan to address problem: Disease education conducted, patient is full code, prognosis discussed, diagnosis discussed, care plan discussed, +30 minutes. 05/23/2020 -Septic shock likely due to UTI, patient is on IV cefepime, IV fluid and pressor support. Critical care consulted -Acute renal failure, improved with IV fluids, nephrology consulted 05/24/2020 -Admitted for septic shock due to UTI, patient is on IV cefepime, IV fluids, pressor support, ID consulted. -Acute renal failure IV fluids and nephrology consult -Patient is saturating 100% on room air -Patient was alert 05/25/2020 -Patient is on IV cefepime and ID increase the dose. -Acute renal failure is improving -Patient had history of cholecystostomy tube placement and was seen by general surgery and order imaging study. -Patient is still on pressors for low blood pressure History Interval history: Patient was seen and evaluated this morning Patient was alert Hospitalist Physical - Physical exam Narrative exam: Not in cardiopulmonary distress. The patient appeared well nourished and normally developed. Vital signs as documented. Head exam is unremarkable. No scleral icterus . Neck is without jugular venous distension, thyromegaly, or carotid bruits. Lungs are clear to auscultation. Cardiac exam reveals regular rate and Rhythm. Abdominal exam reveals normal bowel sounds, nontender, no organomegaly. Extremities are nonedematous and both femoral and pedal pulses are normal. PATROL AGENT: Right hemiparesis. Patient was alert. - Constitutional Vitals: Temp Pulse Resp BP Pulse Ox 97.9 F 64 10 L 98/47 99 05/25/20 08:00 05/25/20 08:00 05/25/20 08:00 05/25/20 08:00 05/25/20 08:00 General appearance: Present: mild distress HEART Score - HEART Score Troponin: Troponin T 0.271 ng/mL (0.00-0.029) H* 05/22/20 09:10 Results - Labs CBC & Chem 7: 05/25/20 09:34 05/25/20 05:00 Labs: Laboratory Last Values WBC 18.4 K/mm3 (4.5-11.0) H 05/24/20 05:45 RBC 3.35 M/mm3 (3.65-5.03) L 05/24/20 05:45 Hgb 8.6 gm/dl (11.8-15.2) L 05/24/20 05:45 Hct 26.5 % (35.5-45.6) L 05/24/20 05:45 MCV 79 fl (84-94) L 05/24/20 05:45 MCH 26 pg (28-32) L 05/24/20 05:45 MCHC 32 % (32-34) 05/24/20 05:45 RDW 23.9 % (13.2-15.2) H 05/24/20 05:45 Plt Count 431 K/mm3 (140-440) 05/24/20 05:45 Lymph % (Auto) 11.5 % (13.4-35.0) L 05/23/20 05:05 [place] % (Auto) 5.8 % (0.0-7.3) 05/23/20 05:05 Eos % (Auto) 0.8 % (0.0-4.3) 05/23/20 05:05 Baso % (Auto) 0.4 % (0.0-1.8) 05/23/20 05:05 Lymph # (Auto) 2.3 K/mm3 (1.2-5.4) 05/23/20 05:05 [place] # (Auto) 1.2 K/mm3 (0.0-0.8) H 05/23/20 05:05 Eos # (Auto) 0.2 K/mm3 (0.0-0.4) 05/23/20 05:05 Baso # (Auto) 0.1 K/mm3 (0.0-0.1) 05/23/20 05:05 Add Manual Diff Complete 05/24/20 05:45 Total Counted 100 05/24/20 05:45 Seg Neutrophils % 81.5 % (40.0-70.0) H 05/23/20 05:05 Seg Neuts % (Manual) 81.0 % (40.0-70.0) H 05/24/20 05:45 Band Neutrophils % 2.0 % 05/22/20 09:10 Lymphocytes % (Manual) 12.0 % (13.4-35.0) L 05/24/20 05:45 Monocytes % (Manual) 7.0 % (0.0-7.3) 05/24/20 05:45 Nucleated RBC % Not Reportable 05/24/20 05:45 Seg Neutrophils # 16.5 K/mm3 (1.8-7.7) H 05/23/20 05:05 Seg Neutrophils # Man 14.9 K/mm3 (1.8-7.7) H 05/24/20 05:45 Band Neutrophils # 0.0 K/mm3 05/24/20 05:45 Lymphocytes # (Manual) 2.2 K/mm3 (1.2-5.4) 05/24/20 05:45 Abs React Lymphs (Man) 0.0 K/mm3 05/24/20 05:45 Monocytes # (Manual) 1.3 K/mm3 (0.0-0.8) H 05/24/20 05:45 Eosinophils # (Manual) 0.0 K/mm3 (0.0-0.4) 05/24/20 05:45 Basophils # (Manual) 0.0 K/mm3 (0.0-0.1) 05/24/20 05:45 Metamyelocytes # 0.0 K/mm3 05/24/20 05:45 Myelocytes # 0.0 K/mm3 05/24/20 05:45 Promyelocytes # 0.0 K/mm3 05/24/20 05:45 Blast Cells # 0.0 K/mm3 05/24/20 05:45 WBC Morphology Not Reportable 05/24/20 05:45 Hypersegmented Neuts Not Reportable 05/24/20 05:45 Hyposegmented Neuts Not Reportable 05/24/20 05:45 Hypogranular Neuts Not Reportable 05/24/20 05:45 Smudge Cells Not Reportable 05/24/20 05:45 Toxic Granulation Not Reportable 05/24/20 05:45 Toxic Vacuolation Not Reportable 05/24/20 05:45 Dohle Bodies Not Reportable 05/24/20 05:45 Pelger-Huet Anomaly Not Reportable 05/24/20 05:45 Lynne Rods Not Reportable 05/24/20 05:45 Platelet Estimate Consistent w auto 05/24/20 05:45 Clumped Platelets Not Reportable 05/24/20 05:45 Plt Clumps, EDTA Not Reportable 05/24/20 05:45 Large Platelets Not Reportable 05/24/20 05:45 Giant Platelets Not Reportable 05/24/20 05:45 Platelet Satelliting Not Reportable 05/24/20 05:45 Plt Morphology Comment Not Reportable 05/24/20 05:45 RBC Morphology Not Reportable 05/24/20 05:45 Dimorphic RBCs Not Reportable 05/24/20 05:45 Polychromasia Not Reportable 05/24/20 05:45 Hypochromasia 1+ 05/24/20 05:45 Poikilocytosis Not Reportable 05/24/20 05:45 Anisocytosis 2+ 05/24/20 05:45 Microcytosis Not Reportable 05/24/20 05:45 Macrocytosis Not Reportable 05/24/20 05:45 Spherocytes Not Reportable 05/24/20 05:45 Pappenheimer Bodies Not Reportable 05/24/20 05:45 Sickle Cells Not Reportable 05/24/20 05:45 Target Cells Not Reportable 05/24/20 05:45 Tear Drop Cells Not Reportable 05/24/20 05:45 Ovalocytes Not Reportable 05/24/20 05:45 Helmet Cells Not Reportable 05/24/20 05:45 Araujo-Masthope Bodies Not Reportable 05/24/20 05:45 [place] Rings Not Reportable 05/24/20 05:45 [place] Cells Not Reportable 05/24/20 05:45 Bite Cells Not Reportable 05/24/20 05:45 Crenated Cell Not Reportable 05/24/20 05:45 Elliptocytes Not Reportable 05/24/20 05:45 Acanthocytes (Spur) Not Reportable 05/24/20 05:45 Rouleaux Not Reportable 05/24/20 05:45 Hemoglobin C Crystals Not Reportable 05/24/20 05:45 Schistocytes Not Reportable 05/24/20 05:45 Malaria parasites Not Reportable 05/24/20 05:45 Chandrakant Bodies Not Reportable 05/24/20 05:45 Hem Pathologist Commnt No 05/24/20 05:45 PT 15.5 Sec. (12.2-14.9) H 05/22/20 09:10 INR 1.25 (0.87-1.13) H 05/22/20 09:10 APTT 47.6 Sec. (24.2-36.6) H 05/22/20 09:10 Sodium 139 mmol/L (137-145) 05/25/20 05:00 Potassium 3.9 mmol/L (3.6-5.0) D 05/25/20 05:00 Chloride 106.9 mmol/L (98-107) 05/25/20 05:00 Carbon Dioxide 24 mmol/L (22-30) 05/25/20 05:00 Anion Gap 12 mmol/L 05/25/20 05:00 BUN 12 mg/dL (9-20) 05/25/20 05:00 Creatinine 0.8 mg/dL (0.8-1.3) 05/25/20 05:00 Estimated GFR > 60 ml/min 05/25/20 05:00 BUN/Creatinine Ratio 15 % 05/25/20 05:00 Glucose 86 mg/dL (75-100) 05/25/20 05:00 POC Glucose 87 mg/dL (70-105) 05/25/20 05:30 Lactic Acid 0.90 mmol/L (0.7-2.0) 05/22/20 23:25 Calcium 7.2 mg/dL (8.4-10.2) L 05/25/20 05:00 Phosphorus 2.80 mg/dL (2.5-4.5) 05/24/20 05:45 Magnesium 2.30 mg/dL (1.7-2.3) 05/25/20 05:00 Total Bilirubin 0.60 mg/dL (0.1-1.2) 05/22/20 09:10 Direct Bilirubin 0.3 mg/dL (0-0.2) H 05/22/20 09:10 Indirect Bilirubin 0.3 mg/dL 05/22/20 09:10 AST 13 units/L (5-40) 05/22/20 09:10 ALT 7 units/L (7-56) 05/22/20 09:10 Alkaline Phosphatase 248 units/L (35-129) H 05/22/20 09:10 Troponin T 0.271 ng/mL (0.00-0.029) H* 05/22/20 09:10 NT-Pro-B Natriuret Pep 1448 pg/mL (0-900) H 05/22/20 09:10 Total Protein 7.4 g/dL (6.3-8.2) 05/22/20 09:10 Albumin 2.8 g/dL (3.9-5) L 05/22/20 09:10 Albumin/Globulin Ratio 0.6 % 05/22/20 09:10 Triglycerides 143 mg/dL (2-149) 05/22/20 09:10 Cholesterol 118 mg/dL (50-199) 05/22/20 09:10 LDL Cholesterol Direct 55 mg/dL (50-130) 05/22/20 09:10 HDL Cholesterol 39 mg/dL (40-59) L 05/22/20 09:10 Cholesterol/HDL Ratio 3.02 % 05/22/20 09:10 Urine Color Mckenzie (Yellow) 05/22/20 09:32 Urine Turbidity Cloudy (Clear) 05/22/20 09:32 Urine pH 8.0 (5.0-7.0) H 05/22/20 09:32 Ur Specific Posey 1.010 (1.003-1.030) 05/22/20 09:32 Urine Protein >500 mg/dL (Negative) 05/22/20 09:32 Urine Glucose (UA) Neg mg/dL (Negative) 05/22/20 09:32 Urine Ketones Neg mg/dL (Negative) 05/22/20 09:32 Urine Blood Sm (Negative) 05/22/20 09:32 Urine Nitrite Neg (Negative) 05/22/20 09:32 Urine Bilirubin Neg (Negative) 05/22/20 09:32 Urine Urobilinogen < 2.0 mg/dL (<2.0) 05/22/20 09:32 Ur Leukocyte Esterase Mod (Negative) 05/22/20 09:32 Urine WBC (Auto) > 182.0 /HPF (0.0-6.0) H 05/22/20 09:32 Urine RBC (Auto) 9.0 /HPF (0.0-6.0) 05/22/20 09:32 U Epithel Cells (Auto) 1.0 /HPF (0-13.0) 05/22/20 09:32 Urine WBC Clumps 2+ /HPF 05/22/20 09:32 Urine Mucus Few /HPF 05/22/20 09:32 Urine Creatinine 48.1 mg/dL (0.1-20.0) H 05/22/20 09:49 Urine Sodium 130 mmol/L 05/22/20 09:49 Blood Type A POSITIVE 05/23/20 06:10 Antibody Screen Negative 05/23/20 06:10 Crossmatch See Detail 05/23/20 06:10 Microbiology: Microbiology 05/23/20 08:51 Urine,Clean Catch Urine Culture - Preliminary 05/22/20 09:10 Peripheral/Venous Blood Culture - Preliminary NO GROWTH AFTER 48 HOURS 05/22/20 09:10 Peripheral/Venous Blood Culture - Preliminary NO GROWTH AFTER 48 HOURS - Diagnostic Impressions Diagnostic Impressions: Echocardiogram 05/22/20 14:25 Transthoracic Echocardiogram Indication: Cardiomyopathy BP: 97/48 HR: 84 Conclusions *Global left ventricular systolic function is normal. *The estimated ejection fraction is 55-60%. *There is no evidence of aortic regurgitation. *There is no evidence of mitral regurgitation. *There is mild tricuspid regurgitation. *The right ventricular systolic pressure is calculated at 31 mmHg. Findings Left Ventricle: The left ventricular chamber size is normal. Global left ventricular wall motion and contractility are within normal limits. Global left ventricular systolic function is normal. The estimated ejection fraction is 55-60%. Abnormal left ventricular diastolic filling is observed, consistent with impaired relaxation. Right Ventricle: The right ventricle is not well visualized. Aortic Valve: Mild aortic leaflet calcification is visualized. There is no evidence of aortic regurgitation. Mitral Valve: The mitral valve leaflets are mildly thickened. There is no evidence of mitral regurgitation. Tricuspid Valve: The tricuspid valve leaflets are normal. There is mild tricuspid regurgitation. The right ventricular systolic pressure is calculated at 31 mmHg. Pulmonic Valve: The pulmonic valve is not well visualized. Pericardium: There is no pericardial effusion. Aorta: The aorta appears normal. Venous: The inferior vena cava is not visualized. Measurements Chambers 2D Name Value Normal Range IVSd (2D) 0.93 cm (0.6 - 1.1) LVPWd (2D) 0.88 cm (0.6 - 1.1) LVIDd (2D) 4.14 cm (3.7 - 5.6) LVIDs (2D) 2.84 cm (2 - 3.8) LV FS (2D) 31.49 % - EF Teichholz (2D) 59.83 % - Ao root diameter (2D) 2.95 cm (2 - 3.7) Volumes/Mass Name Value Normal Range LA ESV SP 4CH (A/L) 18.27 ml - LA ESV SP 2CH (A/L) 16.69 ml - LA ESV BP (A/L) 20.49 ml - LA ESV BP (A/L) index 9.95 ml/m2 - LA ESV SP 4CH (MOD) 16.89 ml - LA ESV SP 2CH (MOD) 16.63 ml - LA ESV BP (MOD) 19.39 ml - LA ESV BP (MOD) index 9.41 ml/m2 - Diastolic/Systolic Function Name Value Normal Range MV E-wave Vmax 0.69 m/sec - MV deceleration time 231.55 msec - MV A-wave Vmax 0.85 m/sec - MV E:A ratio 0.81 ratio - Aortic Valve Name Value Normal Range AV Vmax 1.43 m/sec - AV VTI 26.37 cm - AV peak gradient 8.16 mmHg - AV mean gradient 5.15 mmHg - LVOT diameter 2.39 cm - LVOT Vmax 0.94 m/sec - LVOT VTI 17.92 cm - LVOT peak gradient 3.5 mmHg - LVOT mean gradient 2.07 mmHg - SV LVOT 80.13 ml - NURIA (continuity Vmax) 2.93 cm2 - NURIA (continuity VTI) 3.04 cm2 - Tricuspid Valve Name Value Normal Range TR Vmax 2.63 m/sec - TR peak gradient 28 mmHg - RAP 3 mmHg - RVSP 31 mmHg - Pulmonic Valve/Qp:Qs Name Value Normal Range PV acceleration time 95.15 msec - Engel/IV: Voiding Method Indwelling Catheter Active Medications - Current Medications Current Medications: Generic Name Dose Route Start Last Admin Trade Name Freq PRN Reason Stop Dose Admin Acetaminophen 650 mg 05/22/20 12:31 Acetaminophen 325 Mg Tab PO Q6H PRN Pain, Mild (1-3) Albuterol 2.5 mg 05/22/20 12:14 Albuterol 2.5 Mg/3 Ml Nebu IH Q3HRT PRN Shortness Of Breath Aspirin 81 mg 05/23/20 10:00 05/24/20 09:34 Aspirin 81 Mg Tab Chew PO 81 mg QDAY VANE Administration Atorvastatin Calcium 80 mg 05/22/20 22:00 05/24/20 21:44 Atorvastatin 40 Mg Tab PO 80 mg QHS [facility]ANE Administration Clopidogrel Bisulfate 75 mg 05/23/20 10:00 05/24/20 09:34 Clopidogrel 75 Mg Tab PO 75 mg QDAY [facility]ANE Administration Dextrose 25 ml 05/25/20 00:13 05/25/20 00:21 Dextrose 50% In Water (25gm) 50 Ml Syringe IV 25 ml Q30MIN PRN Administration Hypoglycemia Protocol Heparin Sodium (Porcine) 5,000 unit 05/22/20 22:00 05/24/20 21:43 Heparin 5,000 Unit/1 Ml Vial SUB-Q 5,000 unit Q12HR [facility]ANE Administration Hydromorphone HCl 0.25 mg 05/22/20 12:31 05/24/20 20:42 Hydromorphone 1 Mg/1 Ml Inj IV 0.25 mg Q4H PRN Administration Pain, Moderate (4-6) Norepinephrine 4 mg in 250 mls @ 7.5 mls/hr 05/22/20 12:30 05/25/20 08:00 Levophed Drip 4 Mg/Ns 250 Ml IV Infused TITR VANE Titration Protocol 2 MCG/MIN Sodium Chloride 1,000 mls @ 75 mls/hr 05/24/20 14:30 05/24/20 15:29 Nacl 0.9% 1000 Ml IV 05/25/20 10:29 75 mls/hr DIRECT VANE Administration Cefepime HCl 2 gm in 100 mls @ 200 mls/hr 05/25/20 08:00 Cefepime/Ns 2 Gm/100 Ml IV Q8H [facility]ANE Protocol Pantoprazole Sodium 40 mg 05/22/20 22:00 05/24/20 21:44 Pantoprazole 40 Mg Tab PO 40 mg BID VANE Administration Sodium Chloride 10 ml 05/22/20 22:00 05/24/20 21:45 Sodium Chloride 0.9% 10 Ml Flush Syringe IV 10 ml BID VANE Administration Sodium Chloride 10 ml 05/22/20 12:14 Sodium Chloride 0.9% 10 Ml Flush Syringe IV PRN PRN LINE FLUSH
[2020-05-25] MEDS: CEFEPIME/NS 2 GM/100 ML 2 GM/100 ML BAG IV SCH ×2 (09:00→17:31)
[2020-05-25] MEDS: NORepinephrine/NS 4 MG-250 ML 4 MG/250 ML BAG IV SCH (09:15)
[2020-05-25] MEDS: CLOPIDOGREL 75 MG TAB PO SCH (09:40)
[2020-05-25] MEDS: ASPIRIN 81 MG TAB CHEW PO SCH (09:40)
[2020-05-25] MEDS: PANTOPRAZOLE 40 MG TAB PO SCH ×2 (09:40→21:27)
[2020-05-25] MEDS: HEPARIN 5,000 UNIT/1 ML VIAL SUB-Q SCH ×2 (09:40→21:26)
[2020-05-25] MEDS: SODIUM CHLORIDE 0.9% 1000 ML 1,000 ML IV SCH (09:43)
[2020-05-25 10:19] LABS: Hematocrit 24.6 % (35.5-45.6); Mean Corpuscular HGB Conc 32 % (32-34); Mean Corpuscular Volume 78 fl (84-94); Platelet Count 302 K/mm3 (140-440); Red Blood Count 3.14 M/mm3 (3.65-5.03)
--- NOTE | 2020-05-25 10:19 | Progress Note ---
Assessment and Plan 1. Acute kidney injury: Vasomotor EBENEZER in the setting of septic shock. CT abdomen negative for hydro. ATN. Creatinine level is better. Monitor renal function. Avoid nephrotoxic agents. Meds dosage based on GFR. 2. FEN: Monitor volume status and lytes. 3. Urosepsis, POA: Lactic acidosis. Broad spectrum Abx. Follow cultures. 4. Septic shock: On Levophed. 5. Toxic metabolic encephalopathy: Baseline MS is unknown. Monitor. 6. Anemia, POA: Transfuse prn. Monitor. 7. Gall bladder drain, POA. 8. Elevated blood sugar: Monitor. Subjective: Patient was seen and examined at the bedside. Examination: General appearance: well-developed, appears stated age, not in distress HEENT: ATNC, R pupil is dilated Neck: Trachea midline Respiratory: ctab Cardiology: regular, S1S2, no murmur Abdomen: soft, normoactive bowel sounds, RUQ drain, not tender, not distended Integumentary: warm and dry, no obvious rash Neurologic: alert, able to tell his name, R hemiplegia : Engel catheter Subjective Date of service: 05/25/20 Principal diagnosis: Septic shock; Metabolic Acidosis; Ac, Toxic metabolic encephalopathy; EBENEZER Objective - Vital Signs Vital signs: Vital Signs - 12hr 05/24/20 05/24/20 05/24/20 22:30 22:45 23:00 Temperature Pulse Rate 65 75 73 Pulse Rate [ From Monitor] Respiratory 13 16 17 Rate Blood Pressure 101/54 110/59 112/54 O2 Sat by Pulse 99 100 100 Oximetry 05/24/20 05/24/20 05/24/20 23:15 23:30 23:45 Temperature Pulse Rate 66 70 71 Pulse Rate [ From Monitor] Respiratory 12 10 L 12 Rate Blood Pressure 110/53 116/54 113/55 O2 Sat by Pulse 99 100 99 Oximetry 05/24/20 05/25/20 05/25/20 23:53 00:00 00:15 Temperature 98.7 F Pulse Rate 69 66 Pulse Rate [ 69 From Monitor] Respiratory 12 11 L Rate Blood Pressure 115/58 112/54 O2 Sat by Pulse 100 98 Oximetry 05/25/20 05/25/20 05/25/20 00:30 00:45 01:00 Temperature Pulse Rate 68 69 72 Pulse Rate [ From Monitor] Respiratory 13 11 L 11 L Rate Blood Pressure 116/53 111/53 104/51 O2 Sat by Pulse 95 97 99 Oximetry 05/25/20 05/25/20 05/25/20 01:15 01:30 01:45 Temperature Pulse Rate 72 72 71 Pulse Rate [ From Monitor] Respiratory 11 L 11 L 14 Rate Blood Pressure 98/51 108/54 105/53 O2 Sat by Pulse 100 97 97 Oximetry 05/25/20 05/25/20 05/25/20 02:00 02:15 02:30 Temperature Pulse Rate 71 67 66 Pulse Rate [ From Monitor] Respiratory 12 14 12 Rate Blood Pressure 105/53 114/53 110/54 O2 Sat by Pulse 99 99 96 Oximetry 05/25/20 05/25/20 05/25/20 02:45 03:00 03:15 Temperature Pulse Rate 68 72 76 Pulse Rate [ From Monitor] Respiratory 15 13 20 Rate Blood Pressure 113/55 113/56 120/59 O2 Sat by Pulse 98 98 98 Oximetry 05/25/20 05/25/20 05/25/20 03:30 03:45 03:48 Temperature 98.0 F Pulse Rate 82 71 Pulse Rate [ From Monitor] Respiratory 12 13 Rate Blood Pressure 120/59 111/55 O2 Sat by Pulse 98 99 Oximetry 05/25/20 05/25/20 05/25/20 04:00 04:15 04:30 Temperature Pulse Rate 73 69 65 Pulse Rate [ 75 From Monitor] Respiratory 16 12 10 L Rate Blood Pressure 118/56 109/52 111/55 O2 Sat by Pulse 99 97 98 Oximetry 05/25/20 05/25/20 05/25/20 04:45 05:00 05:15 Temperature Pulse Rate 63 68 62 Pulse Rate [ From Monitor] Respiratory 11 L 13 13 Rate Blood Pressure 114/56 113/60 113/52 O2 Sat by Pulse 97 100 98 Oximetry 05/25/20 05/25/20 05/25/20 05:30 05:45 06:00 Temperature Pulse Rate 80 73 66 Pulse Rate [ From Monitor] Respiratory 14 12 14 Rate Blood Pressure 122/59 109/54 103/49 O2 Sat by Pulse 97 95 Oximetry 05/25/20 05/25/20 05/25/20 06:15 06:30 06:45 Temperature Pulse Rate 64 61 62 Pulse Rate [ From Monitor] Respiratory 9 L 14 15 Rate Blood Pressure 110/49 108/46 103/47 O2 Sat by Pulse 100 89 91 Oximetry 05/25/20 05/25/20 05/25/20 07:00 07:15 07:30 Temperature Pulse Rate 66 62 61 Pulse Rate [ From Monitor] Respiratory 12 10 L 10 L Rate Blood Pressure 102/53 105/51 98/47 O2 Sat by Pulse 95 97 96 Oximetry 05/25/20 05/25/20 05/25/20 07:45 08:00 08:15 Temperature 97.9 F Pulse Rate 62 64 60 Pulse Rate [ From Monitor] Respiratory 10 L 10 L 10 L Rate Blood Pressure 103/46 98/47 106/48 O2 Sat by Pulse 97 99 97 Oximetry 05/25/20 05/25/20 05/25/20 08:30 08:45 09:00 Temperature Pulse Rate 77 76 63 Pulse Rate [ From Monitor] Respiratory 11 L 12 10 L Rate Blood Pressure 106/48 109/53 104/45 O2 Sat by Pulse 100 100 97 Oximetry 05/25/20 09:03 Temperature Pulse Rate Pulse Rate [ From Monitor] Respiratory Rate Blood Pressure O2 Sat by Pulse 98 Oximetry - Lab 05/25/20 09:34 05/25/20 05:00 Most recent lab results Calcium 7.2 mg/dL (8.4-10.2) L 05/25/20 05:00 Phosphorus 2.80 mg/dL (2.5-4.5) 05/24/20 05:45 Magnesium 2.30 mg/dL (1.7-2.3) 05/25/20 05:00 Urine Creatinine 48.1 mg/dL (0.1-20.0) H 05/22/20 09:49 Urine Sodium 130 mmol/L 05/22/20 09:49 Medications & Allergies - Medications Allergies/Adverse Reactions: Allergies No Known Allergies Allergy (Unverified 04/14/18 14:09) Home Medications: Home Medications Medication Instructions Recorded Confirmed Last Taken Type Pantoprazole [Protonix TAB] 40 mg PO BID #60 tablet 04/14/18 05/22/20 Unknown Rx Aspirin [Aspirin BABY CHEW TAB] 81 mg PO QDAY #60 tab.chew 11/10/19 05/22/20 Unknown Rx AtorvaSTATin [Lipitor] 80 mg PO QHS #60 tablet 11/10/19 05/22/20 Unknown Rx Clopidogrel [Plavix] 75 mg PO QDAY #60 tablet 11/10/19 05/22/20 Unknown Rx NIFEdipine XL [Procardia Xl] 30 mg PO Q12HR #30 tablet 11/10/19 05/22/20 Unknown Rx carvediloL [Coreg] 3.125 mg PO BID #60 tablet 03/22/20 05/22/20 Unknown Rx Povidone-Iodine [Betadine] 1 applicatio TD DAILY 05/22/20 05/22/20 Unknown History Active Medications: Generic Name Dose Route Start Last Admin Trade Name Freq PRN Reason Stop Dose Admin Acetaminophen 650 mg 05/22/20 12:31 Acetaminophen 325 Mg Tab PO Q6H PRN Pain, Mild (1-3) Albuterol 2.5 mg 05/22/20 12:14 Albuterol 2.5 Mg/3 Ml Nebu IH Q3HRT PRN Shortness Of Breath Aspirin 81 mg 05/23/20 10:00 05/25/20 09:40 Aspirin 81 Mg Tab Chew PO 81 mg QDAY VANE Administration Atorvastatin Calcium 80 mg 05/22/20 22:00 05/24/20 21:44 Atorvastatin 40 Mg Tab PO 80 mg QHS VANE Administration Clopidogrel Bisulfate 75 mg 05/23/20 10:00 05/25/20 09:40 Clopidogrel 75 Mg Tab PO 75 mg QDAY VANE Administration Dextrose 25 ml 05/25/20 00:13 05/25/20 00:21 Dextrose 50% In Water (25gm) 50 Ml Syringe IV 25 ml Q30MIN PRN Administration Hypoglycemia Protocol Heparin Sodium (Porcine) 5,000 unit 05/22/20 22:00 05/25/20 09:40 Heparin 5,000 Unit/1 Ml Vial SUB-Q 5,000 unit Q12HR VANE Administration Hydromorphone HCl 0.25 mg 05/22/20 12:31 05/24/20 20:42 Hydromorphone 1 Mg/1 Ml Inj IV 0.25 mg Q4H PRN Administration Pain, Moderate (4-6) Norepinephrine 4 mg in 250 mls @ 7.5 mls/hr 05/22/20 12:30 05/25/20 10:02 Levophed Drip 4 Mg/Ns 250 Ml IV 0 mcg/min TITR VANE 0 mls/hr Titration Protocol 2 MCG/MIN Sodium Chloride 1,000 mls @ 75 mls/hr 05/24/20 14:30 05/25/20 09:43 Nacl 0.9% 1000 Ml IV 05/25/20 10:29 75 mls/hr DIRECT VANE Administration Cefepime HCl 2 gm in 100 mls @ 200 mls/hr 05/25/20 08:00 05/25/20 09:00 Cefepime/Ns 2 Gm/100 Ml IV 200 mls/hr Q8H VANE Administration Protocol Pantoprazole Sodium 40 mg 05/22/20 22:00 05/25/20 09:40 Pantoprazole 40 Mg Tab PO 40 mg BID VANE Administration Sodium Chloride 10 ml 05/22/20 22:00 05/25/20 09:40 Sodium Chloride 0.9% 10 Ml Flush Syringe IV 10 ml BID VANE Administration Sodium Chloride 10 ml 05/22/20 12:14 Sodium Chloride 0.9% 10 Ml Flush Syringe IV PRN PRN LINE FLUSH
[2020-05-25 10:51] LABS: Total Cells Counted 100
[2020-05-25 10:52] LABS: Myelocytes # (Manual) 0.1 K/mm3
[2020-05-25 10:53] LABS: Anisocytosis 2+; Platelet Estimate Consistent w Auto; Spherocytes 1+
[2020-05-25 10:54] LABS: Ovalocytes Few; Target Cells Few
--- NOTE | 2020-05-25 11:36 | Progress Note ---
Assessment and Plan Septic shock Metabolic Acidosis Acute Toxic metabolic encephalopathy Acute renal failure UTI (urinary tract infection) - stop IVF (EBENEZER resolved and off pressors) - cleared for p.o. intake by surgeon - will get swallow evaluation (tube feeds if fails) - get general surgery recommendations (re: ? Cholostomy drain / abdominal pain) noted - continue care as below otherwise; - transfer to medical floor ok - continue empiric Cefepime (trend lactate, procalcitonin to aid clinical decision making) - continue accuchecks with glycemic control per SSI (While critically ill target blood glucose of 140-180 mg/dL; avoid hypoglycemia) - continue to wean supplemental oxygen for target O2 sat's > 90% acutely - aspiration precautions - prn bronchodilators with pulmonary hygiene per RT - avoid nephrotoxins, renally dose all medications - avoid benzodiazepine's, reduce the possibility of delirium - prn analgesia per pain score - Maintenance of sleep-wake cycle, avoid delirium - aspiration precautions - G.I. & VTE prophylaxis - PT/OT/ROM exercises - mobility protocols for pressure ulcer prophylaxis - Monitor hemodynamics closely - continue other care per attending / other consultants - discharge planning ongoing concurrently .... Re-evaluate in am & prn I have spent ( >35 ) minutes with the patient w/ >50% of the time spent counseling and/or coordinating care for this patient. Counseling topics and/or how time was spent coordinating patient's care is outlined in the impression and plan above. Subjective Date of service: 05/25/20 Principal diagnosis: Septic shock; Metabolic Acidosis; Ac, Toxic metabolic encephalopathy; EBENEZER Interval history: Patient is seen today for: Septic shock; Metabolic Acidosis; Acute Toxic metabolic encephalopathy; Acute renal failure; UTI (urinary tract infection) Seen and examined at bedside; 24hour events reviewed; nursing and respiratory care staff consulted; no adverse overnight events reported to me; resting peacefully in bed; off vasopressors; more alert; seen by surgery; remains on IVNS; no emesis or overt aspiration Objective Vital Signs - 12hr 05/24/20 05/24/20 05/25/20 23:45 23:53 00:00 Temperature 98.7 F Pulse Rate 71 69 Pulse Rate [ 69 From Monitor] Respiratory 12 12 Rate Blood Pressure 113/55 115/58 O2 Sat by Pulse 99 100 Oximetry 05/25/20 05/25/20 05/25/20 00:15 00:30 00:45 Temperature Pulse Rate 66 68 69 Pulse Rate [ From Monitor] Respiratory 11 L 13 11 L Rate Blood Pressure 112/54 116/53 111/53 O2 Sat by Pulse 98 95 97 Oximetry 05/25/20 05/25/20 05/25/20 01:00 01:15 01:30 Temperature Pulse Rate 72 72 72 Pulse Rate [ From Monitor] Respiratory 11 L 11 L 11 L Rate Blood Pressure 104/51 98/51 108/54 O2 Sat by Pulse 99 100 97 Oximetry 05/25/20 05/25/20 05/25/20 01:45 02:00 02:15 Temperature Pulse Rate 71 71 67 Pulse Rate [ From Monitor] Respiratory 14 12 14 Rate Blood Pressure 105/53 105/53 114/53 O2 Sat by Pulse 97 99 99 Oximetry 05/25/20 05/25/20 05/25/20 02:30 02:45 03:00 Temperature Pulse Rate 66 68 72 Pulse Rate [ From Monitor] Respiratory 12 15 13 Rate Blood Pressure 110/54 113/55 113/56 O2 Sat by Pulse 96 98 98 Oximetry 05/25/20 05/25/20 05/25/20 03:15 03:30 03:45 Temperature Pulse Rate 76 82 71 Pulse Rate [ From Monitor] Respiratory 20 12 13 Rate Blood Pressure 120/59 120/59 111/55 O2 Sat by Pulse 98 98 99 Oximetry 05/25/20 05/25/20 05/25/20 03:48 04:00 04:15 Temperature 98.0 F Pulse Rate 73 69 Pulse Rate [ 75 From Monitor] Respiratory 16 12 Rate Blood Pressure 118/56 109/52 O2 Sat by Pulse 99 97 Oximetry 05/25/20 05/25/20 05/25/20 04:30 04:45 05:00 Temperature Pulse Rate 65 63 68 Pulse Rate [ From Monitor] Respiratory 10 L 11 L 13 Rate Blood Pressure 111/55 114/56 113/60 O2 Sat by Pulse 98 97 100 Oximetry 05/25/20 05/25/20 05/25/20 05:15 05:30 05:45 Temperature Pulse Rate 62 80 73 Pulse Rate [ From Monitor] Respiratory 13 14 12 Rate Blood Pressure 113/52 122/59 109/54 O2 Sat by Pulse 98 97 Oximetry 05/25/20 05/25/20 05/25/20 06:00 06:15 06:30 Temperature Pulse Rate 66 64 61 Pulse Rate [ From Monitor] Respiratory 14 9 L 14 Rate Blood Pressure 103/49 110/49 108/46 O2 Sat by Pulse 95 100 89 Oximetry 05/25/20 05/25/20 05/25/20 06:45 07:00 07:15 Temperature Pulse Rate 62 66 62 Pulse Rate [ From Monitor] Respiratory 15 12 10 L Rate Blood Pressure 103/47 102/53 105/51 O2 Sat by Pulse 91 95 97 Oximetry 05/25/20 05/25/20 05/25/20 07:30 07:45 08:00 Temperature 97.9 F Pulse Rate 61 62 64 Pulse Rate [ From Monitor] Respiratory 10 L 10 L 10 L Rate Blood Pressure 98/47 103/46 98/47 O2 Sat by Pulse 96 97 99 Oximetry 05/25/20 05/25/20 05/25/20 08:15 08:30 08:45 Temperature Pulse Rate 60 77 76 Pulse Rate [ From Monitor] Respiratory 10 L 11 L 12 Rate Blood Pressure 106/48 106/48 109/53 O2 Sat by Pulse 97 100 100 Oximetry 05/25/20 05/25/20 09:00 09:03 Temperature Pulse Rate 63 Pulse Rate [ From Monitor] Respiratory 10 L Rate Blood Pressure 104/45 O2 Sat by Pulse 97 98 Oximetry Constitutional: no acute distress, other (elderly looking male with normal resp iratory effort at rest) Eyes: non-icteric ENT: oropharynx moist Neck: supple, no lymphadenopathy, no JVD Effort: normal Ascultation: Bilateral: clear Percussion: Bilateral: not dull Cardiovascular: regular rate and rhythm Gastrointestinal: normoactive bowel sounds, soft, tender (mild, LLQ, RUQ), non- distended (protuberant'), other (RUQ J-P drain) Integumentary: normal Extremities: no cyanosis, no edema, pink and warm, pulses normal Neurologic: non-focal exam (grossly), pupils equal and round, CN II-XII normal, other (slow to respond) Psychiatric: other (flat affect) CBC and BMP: 05/25/20 09:34 05/25/20 05:00 ABG, PT/INR, D-dimer: PT/INR, D-dimer PT 15.5 Sec. (12.2-14.9) H 05/22/20 09:10 INR 1.25 (0.87-1.13) H 05/22/20 09:10 Abnormal lab findings: Abnormal Labs 05/22/20 05/22/20 05/22/20 09:10 09:10 09:10 WBC 17.9 H RBC 3.60 L Hgb 8.7 L Hct 26.8 L MCV 74 L MCH 24 L RDW 24.0 H Plt Count 621 H Lymph % (Auto) [place] # (Auto) Seg Neutrophils % Seg Neuts % (Manual) 85.0 H Lymphocytes % (Manual) 5.0 L Monocytes % (Manual) 8.0 H Seg Neutrophils # Seg Neutrophils # Man 15.2 H Lymphocytes # (Manual) 0.9 L Monocytes # (Manual) 1.4 H PT INR APTT Sodium Potassium Chloride Carbon Dioxide BUN Creatinine Glucose POC Glucose Lactic Acid 3.30 H* Calcium Magnesium Direct Bilirubin Alkaline Phosphatase Troponin T 0.271 H* NT-Pro-B Natriuret Pep Albumin HDL Cholesterol 39 L Urine pH Urine WBC (Auto) Urine Creatinine Crossmatch 05/22/20 05/22/20 05/22/20 09:10 09:10 09:32 WBC RBC Hgb Hct MCV MCH RDW Plt Count Lymph % (Auto) [place] # (Auto) Seg Neutrophils % Seg Neuts % (Manual) Lymphocytes % (Manual) Monocytes % (Manual) Seg Neutrophils # Seg Neutrophils # Man Lymphocytes # (Manual) Monocytes # (Manual) PT 15.5 H INR 1.25 H APTT 47.6 H Sodium 136 L Potassium Chloride 97.2 L Carbon Dioxide BUN 36 H Creatinine 3.8 H Glucose 133 H POC Glucose Lactic Acid Calcium 7.8 L Magnesium Direct Bilirubin 0.3 H Alkaline Phosphatase 248 H Troponin T NT-Pro-B Natriuret Pep 1448 H Albumin 2.8 L HDL Cholesterol Urine pH 8.0 H Urine WBC (Auto) > 182.0 H Urine Creatinine Crossmatch 05/22/20 05/22/20 05/22/20 09:49 11:42 19:48 WBC RBC Hgb Hct MCV MCH RDW Plt Count Lymph % (Auto) [place] # (Auto) Seg Neutrophils % Seg Neuts % (Manual) Lymphocytes % (Manual) Monocytes % (Manual) Seg Neutrophils # Seg Neutrophils # Man Lymphocytes # (Manual) Monocytes # (Manual) PT INR APTT Sodium Potassium Chloride Carbon Dioxide BUN Creatinine Glucose POC Glucose Lactic Acid 3.70 H* 2.10 H* Calcium Magnesium Direct Bilirubin Alkaline Phosphatase Troponin T NT-Pro-B Natriuret Pep Albumin HDL Cholesterol Urine pH Urine WBC (Auto) Urine Creatinine 48.1 H Crossmatch 05/22/20 05/23/20 05/23/20 23:27 05:05 05:05 WBC 20.3 H RBC 2.73 L Hgb 6.6 L Hct 20.8 L D MCV 76 L MCH 24 L RDW 23.9 H Plt Count 546 H Lymph % (Auto) 11.5 L [place] # (Auto) 1.2 H Seg Neutrophils % 81.5 H Seg Neuts % (Manual) Lymphocytes % (Manual) Monocytes % (Manual) Seg Neutrophils # 16.5 H Seg Neutrophils # Man Lymphocytes # (Manual) Monocytes # (Manual) PT INR APTT Sodium Potassium Chloride 112.5 H Carbon Dioxide 20 L BUN 26 H Creatinine 1.8 H D Glucose 135 H POC Glucose 124 H Lactic Acid Calcium 6.8 L Magnesium Direct Bilirubin Alkaline Phosphatase Troponin T NT-Pro-B Natriuret Pep Albumin HDL Cholesterol Urine pH Urine WBC (Auto) Urine Creatinine Crossmatch 05/23/20 05/23/20 05/23/20 05:38 06:10 11:33 WBC RBC Hgb Hct MCV MCH RDW Plt Count Lymph % (Auto) [place] # (Auto) Seg Neutrophils % Seg Neuts % (Manual) Lymphocytes % (Manual) Monocytes % (Manual) Seg Neutrophils # Seg Neutrophils # Man Lymphocytes # (Manual) Monocytes # (Manual) PT INR APTT Sodium Potassium Chloride Carbon Dioxide BUN Creatinine Glucose POC Glucose 112 H 128 H Lactic Acid Calcium Magnesium Direct Bilirubin Alkaline Phosphatase Troponin T NT-Pro-B Natriuret Pep Albumin HDL Cholesterol Urine pH Urine WBC (Auto) Urine Creatinine Crossmatch See Detail 05/23/20 05/23/20 05/23/20 14:45 17:49 23:34 WBC RBC Hgb 8.4 L Hct 26.4 L MCV MCH RDW Plt Count Lymph % (Auto) [place] # (Auto) Seg Neutrophils % Seg Neuts % (Manual) Lymphocytes % (Manual) Monocytes % (Manual) Seg Neutrophils # Seg Neutrophils # Man Lymphocytes # (Manual) Monocytes # (Manual) PT INR APTT Sodium Potassium Chloride Carbon Dioxide BUN Creatinine Glucose POC Glucose 112 H 116 H Lactic Acid Calcium Magnesium Direct Bilirubin Alkaline Phosphatase Troponin T NT-Pro-B Natriuret Pep Albumin HDL Cholesterol Urine pH Urine WBC (Auto) Urine Creatinine Crossmatch 05/24/20 05/24/20 05/25/20 05:45 05:45 05:00 WBC 18.4 H RBC 3.35 L Hgb 8.6 L Hct 26.5 L MCV 79 L MCH 26 L RDW 23.9 H Plt Count Lymph % (Auto) [place] # (Auto) Seg Neutrophils % Seg Neuts % (Manual) 81.0 H Lymphocytes % (Manual) 12.0 L Monocytes % (Manual) Seg Neutrophils # Seg Neutrophils # Man 14.9 H Lymphocytes # (Manual) Monocytes # (Manual) 1.3 H PT INR APTT Sodium Potassium 3.1 L Chloride 109.5 H Carbon Dioxide BUN Creatinine Glucose 111 H POC Glucose Lactic Acid Calcium 6.8 L 7.2 L Magnesium 1.00 L Direct Bilirubin Alkaline Phosphatase Troponin T NT-Pro-B Natriuret Pep Albumin HDL Cholesterol Urine pH Urine WBC (Auto) Urine Creatinine Crossmatch 05/25/20 09:34 WBC 12.7 H RBC 3.14 L Hgb 8.0 L Hct 24.6 L MCV 78 L MCH 25 L RDW 25.0 H Plt Count Lymph % (Auto) [place] # (Auto) Seg Neutrophils % Seg Neuts % (Manual) 94.0 H Lymphocytes % (Manual) 3.0 L Monocytes % (Manual) Seg Neutrophils # Seg Neutrophils # Man 11.9 H Lymphocytes # (Manual) 0.4 L Monocytes # (Manual) PT INR APTT Sodium Potassium Chloride Carbon Dioxide BUN Creatinine Glucose POC Glucose Lactic Acid Calcium Magnesium Direct Bilirubin Alkaline Phosphatase Troponin T NT-Pro-B Natriuret Pep Albumin HDL Cholesterol Urine pH Urine WBC (Auto) Urine Creatinine Crossmatch Allied health notes reviewed: nursing
--- NOTE | 2020-05-25 12:12 | Fluoroscopy Report ---
Cholecystostomy tube injection Indication: percutaneous cholecystostomy tube, hx acute cata. Technique: Single contrast water-soluble technique utilized to evaluate the gallbladder and biliary tree. Findings: To begin the exam, aseptic technique was utilized to inject approximately 50 mL of Omnipaq ue 300 through the cholecystostomy tube. Contrast freely passed into the gallbladder and there was free contrast passage distally into the CBD without definite contrast passage into the duodenum before there was contrast extravasation along th e catheter track into the right upper quadrant and also outside of the patient's skin. Another attemp t was performed but similar results were encountered. Ultimately images were obtained and sterile diana ine was used to flush the catheter. Impression: Injection of the cholecystostomy tube as outlined above with contrast passage in the CBD all the way to the level of the ampulla but not into the duodenum before there was contrast extravas ation along the catheter track in the right upper quadrant. Fluoroscopic time: 2.2 minutes Number of fluoroscopic images: 9 Signer Name: Dariusz Carrillo MD Signed: 05/25/2020 12:08 PM Workstation Name: [id number]
--- NOTE | 2020-05-25 13:51 | Progress Note ---
Assessment and Plan 69-year-old male with 1. Sepsis secondary to acute cystitis 2. Urinary tract infection 3. History of acute cholecystitis with placement of percutaneous cholecystostomy drain Cholecystostomy drain study - Injection of cholecystostomy tube with contrast passage into the CBD to the level of the ampulla but not into the duodenum before there was contrast extravasation along the catheter tract in the right upper quadrant Pt stable. Afebrile. Wants to eat. Cholecystostomy tube patent. Tube study shows no cystic duct obstruction but contrast does not pass into duodenum - etiology ?sphincter spasm vs ?distal CBD obstruction. AST, ALT, bilis ok Plan: 1. Ok to start diet from surgery standpoint 2. Continue medical management per 1' team and consulting services 3. MRCP to r/o distal CBD obstruction D/W Dr. Drake. Thank you . Please call with any questions or concerns. Evaluation and treatment of this patient was during the time of the national and state emergency arising from COVID19 coronavirus pandemic. Treatment and procedures performed meet the current and available best practice and guidelines for patient during the COVID pandemic. Subjective Date of service: 05/25/20 Narrative: Pt seen and examined. Feels better today. Denies abdominal pain today. Feels hungry and wants to eat. Objective Vital Signs - 12hr 05/25/20 05/25/20 05/25/20 02:00 02:15 02:30 Temperature Pulse Rate 71 67 66 Pulse Rate [ From Monitor] Respiratory 12 14 12 Rate Blood Pressure 105/53 114/53 110/54 O2 Sat by Pulse 99 99 96 Oximetry 05/25/20 05/25/20 05/25/20 02:45 03:00 03:15 Temperature Pulse Rate 68 72 76 Pulse Rate [ From Monitor] Respiratory 15 13 20 Rate Blood Pressure 113/55 113/56 120/59 O2 Sat by Pulse 98 98 98 Oximetry 05/25/20 05/25/20 05/25/20 03:30 03:45 03:48 Temperature 98.0 F Pulse Rate 82 71 Pulse Rate [ From Monitor] Respiratory 12 13 Rate Blood Pressure 120/59 111/55 O2 Sat by Pulse 98 99 Oximetry 05/25/20 05/25/20 05/25/20 04:00 04:15 04:30 Temperature Pulse Rate 73 69 65 Pulse Rate [ 75 From Monitor] Respiratory 16 12 10 L Rate Blood Pressure 118/56 109/52 111/55 O2 Sat by Pulse 99 97 98 Oximetry 05/25/20 05/25/20 05/25/20 04:45 05:00 05:15 Temperature Pulse Rate 63 68 62 Pulse Rate [ From Monitor] Respiratory 11 L 13 13 Rate Blood Pressure 114/56 113/60 113/52 O2 Sat by Pulse 97 100 98 Oximetry 05/25/20 05/25/20 05/25/20 05:30 05:45 06:00 Temperature Pulse Rate 80 73 66 Pulse Rate [ From Monitor] Respiratory 14 12 14 Rate Blood Pressure 122/59 109/54 103/49 O2 Sat by Pulse 97 95 Oximetry 05/25/20 05/25/20 05/25/20 06:15 06:30 06:45 Temperature Pulse Rate 64 61 62 Pulse Rate [ From Monitor] Respiratory 9 L 14 15 Rate Blood Pressure 110/49 108/46 103/47 O2 Sat by Pulse 100 89 91 Oximetry 05/25/20 05/25/20 05/25/20 07:00 07:15 07:30 Temperature Pulse Rate 66 62 61 Pulse Rate [ From Monitor] Respiratory 12 10 L 10 L Rate Blood Pressure 102/53 105/51 98/47 O2 Sat by Pulse 95 97 96 Oximetry 05/25/20 05/25/20 05/25/20 07:45 08:00 08:15 Temperature 97.9 F Pulse Rate 62 64 60 Pulse Rate [ From Monitor] Respiratory 10 L 10 L 10 L Rate Blood Pressure 103/46 98/47 106/48 O2 Sat by Pulse 97 99 97 Oximetry 05/25/20 05/25/20 05/25/20 08:30 08:45 09:00 Temperature Pulse Rate 77 76 63 Pulse Rate [ From Monitor] Respiratory 11 L 12 10 L Rate Blood Pressure 106/48 109/53 104/45 O2 Sat by Pulse 100 100 97 Oximetry 05/25/20 05/25/20 05/25/20 09:03 09:15 09:30 Temperature Pulse Rate 82 69 Pulse Rate [ From Monitor] Respiratory 10 L 9 L Rate Blood Pressure 103/49 100/45 O2 Sat by Pulse 98 99 97 Oximetry 05/25/20 05/25/20 05/25/20 09:45 10:00 10:15 Temperature Pulse Rate 68 81 74 Pulse Rate [ From Monitor] Respiratory 12 12 12 Rate Blood Pressure 102/47 111/54 124/49 O2 Sat by Pulse 96 99 99 Oximetry 05/25/20 05/25/20 05/25/20 10:30 11:24 11:30 Temperature Pulse Rate 77 72 Pulse Rate [ From Monitor] Respiratory 13 25 H 13 Rate Blood Pressure 124/49 124/49 122/61 O2 Sat by Pulse 99 97 Oximetry 05/25/20 05/25/20 05/25/20 11:45 12:00 12:15 Temperature 98 F Pulse Rate 78 70 70 Pulse Rate [ From Monitor] Respiratory 13 12 12 Rate Blood Pressure 112/59 106/53 106/53 O2 Sat by Pulse 98 97 96 Oximetry 05/25/20 05/25/20 05/25/20 12:30 12:45 13:00 Temperature Pulse Rate 74 61 67 Pulse Rate [ From Monitor] Respiratory 11 L 13 15 Rate Blood Pressure 106/53 103/44 101/46 O2 Sat by Pulse 97 99 87 Oximetry 05/25/20 05/25/20 05/25/20 13:15 13:30 13:45 Temperature Pulse Rate 66 69 61 Pulse Rate [ From Monitor] Respiratory 10 L 10 L 13 Rate Blood Pressure 107/49 104/55 100/51 O2 Sat by Pulse 98 98 98 Oximetry - General physical appearance Narrative Exam: Gen.: Awake, alert, nonverbal. Does nod and shake head to yes and no questions respectively. No apparent distress ENT: Trachea midline. No lymphadenopathy. No scleral icterus or conjunctival pallor CV: S1, S2 present Respiratory: No audible wheezes Abdomen: Soft, nondistended. NT. RUQ drain with scant brown drainage - Labs 05/25/20 09:34 05/25/20 05:00 Diabetes panel 05/25/20 Range/Units 05:00 Sodium 139 (137-145) mmol/L Potassium 3.9 D (3.6-5.0) mmol/L Chloride 106.9 (98-107) mmol/L Carbon Dioxide 24 (22-30) mmol/L BUN 12 (9-20) mg/dL Creatinine 0.8 (0.8-1.3) mg/dL Glucose 86 (75-100) mg/dL Calcium 7.2 L (8.4-10.2) mg/dL Calcium panel 05/25/20 Range/Units 05:00 Calcium 7.2 L (8.4-10.2) mg/dL Pituitary panel 05/25/20 Range/Units 05:00 Sodium 139 (137-145) mmol/L Potassium 3.9 D (3.6-5.0) mmol/L Chloride 106.9 (98-107) mmol/L Carbon Dioxide 24 (22-30) mmol/L BUN 12 (9-20) mg/dL Creatinine 0.8 (0.8-1.3) mg/dL Glucose 86 (75-100) mg/dL Calcium 7.2 L (8.4-10.2) mg/dL Adrenal panel 05/25/20 Range/Units 05:00 Sodium 139 (137-145) mmol/L Potassium 3.9 D (3.6-5.0) mmol/L Chloride 106.9 (98-107) mmol/L Carbon Dioxide 24 (22-30) mmol/L BUN 12 (9-20) mg/dL Creatinine 0.8 (0.8-1.3) mg/dL Glucose 86 (75-100) mg/dL Calcium 7.2 L (8.4-10.2) mg/dL
[2020-05-25] MEDS ORDERED: CALCIUM GLUCONATE 2,000 MG in SODIUM CHLORIDE 0.9% 100 ML IV ONE (15:00)
--- NOTE | 2020-05-25 15:29 | Magnetic Resonance Report ---
MR abdomen MRCP INDICATION / CLINICAL INFORMATION: Abdominal pain. Biliary obstruction. TECHNIQUE: Multiplanar, multisequence MR images were obtained. Routine MRI of the abdomen with MRCP protocol. Th is exam is limited secondary to patient body habitus and respiratory motion artifact throughout much of the exam COMPARISON: 05/25/2020 FINDINGS: MRI abdomen there is extensive artifact from the cholecystostomy drain as well as the overlying right arm. No definite intrahepatic biliary dilatation is identified. No definite common biliary duct dila tation is appreciated. There are small bilateral pleural effusions and tiny perihepatic ascites. No o bvious large mass is identified within the liver, spleen or adrenal glands. There are several cysts w ithin the kidneys. The pancreas is poorly visualized secondary to the degree of motion artifact. MRCP images are nondiagnostic IMPRESSION: Essentially nondiagnostic exam. There are several possible filling defects in the region of the trey hepatis however it is unclear if these filling defects or within the adjacent duodenum or common porsche e duct. ERCP is needed for further evaluation for possible choledocholithiasis. Signer Name: Leroy Perry MD Signed: 05/25/2020 3:24 PM Workstation Name: [id number]
--- NOTE | 2020-05-25 15:44 | Progress Note ---
Assessment and Plan Cultures: Blood culture no growth so far Urine culture no growth so far A/P: 69-year-old man past medical history CAD, CVA admitted with here from skilled nursing. #Acute cystitis: With significant pyuria, seen on CT scan. Cultures no growth so far, with normal skin merry only #EBENEZER: Resolved #Cholecystitis: Improved inflammation seen on CT, cholecystostomy tube in place. Recs: -Increase cefepime to 2 g every 8 hours complete 7 days. -Continue to follow white count. Thank you for the consult, we will continue to follow. Thuan Peguero MD [facility] ([facility]) O: [phone] F: [phone] Subjective Date of service: 05/25/20 Principal diagnosis: Septic shock; Metabolic Acidosis; Ac, Toxic metabolic encephalopathy; EBENEZER Interval history: Afebrile, white count 12.7. Cultures remain negative. Imaging personally reviewed: Abdominal MRI: Nondiagnostic Objective - Exam Narrative Exam: Physical Exam: Constitutional: Alert, cooperative. No acute distress Head, Ears, Nose: Normocephalic, atraumatic. External ears, nose normal Eyes: Conjunctivae/corneas clear. No icterus. No ptosis. Neck: Supple, no meningeal signs Oral: dentition fair, no thrush Cardiovascular: S1, S2 normal. Respiratory: Good air entry, clear to auscultation bilaterally GI: Soft, non-tender; bowel sounds normal. No peritoneal signs. +cholecystostomy tube Musculoskeletal: No pedal edema, no cyanosis. Skin: No rash or abscess Hem/Lymphatic: No palpable cervical or supraclavicular nodes. No lymphangitis Psych: Mood ok. Affect normal Neurological: Awake, alert, oriented. No gross abnormality - Constitutional Vitals: Vital Signs Temp Pulse Resp BP Pulse Ox 98 F 76 14 100/51 98 05/25/20 12:00 05/25/20 15:02 05/25/20 15:02 05/25/20 15:02 05/25/20 13:45 Temperature -Last 24 Hours Temperature 98 F Temperature 97.9 F Temperature 98.0 F Temperature 98.7 F Temperature 98.3 F Temperature 97.7 F - Labs CBC & Chem 7: 05/25/20 09:34 05/25/20 05:00 Labs: Abnormal lab results 05/25/20 05/25/20 05/25/20 Range/Units 05:00 09:34 11:31 WBC 12.7 H (4.5-11.0) K/mm3 RBC 3.14 L (3.65-5.03) M/mm3 Hgb 8.0 L (11.8-15.2) gm/dl Hct 24.6 L (35.5-45.6) % MCV 78 L (84-94) fl MCH 25 L (28-32) pg RDW 25.0 H (13.2-15.2) % Seg Neuts % (Manual) 94.0 H (40.0-70.0) % Lymphocytes % (Manual) 3.0 L (13.4-35.0) % Seg Neutrophils # Man 11.9 H (1.8-7.7) K/mm3 Lymphocytes # (Manual) 0.4 L (1.2-5.4) K/mm3 POC Glucose 63 L (70-105) mg/dL Calcium 7.2 L (8.4-10.2) mg/dL
[2020-05-26] MEDS: CEFEPIME/NS 2 GM/100 ML 2 GM/100 ML BAG IV SCH ×4 (00:24→23:16)
[2020-05-26] MEDS: DEXTROSE 5% IN WATER 1,000 ML IV SCH ×2 (00:45→15:58)
[2020-05-26] MEDS: HYDROmorphone 1 MG/1 ML INJ IV PRN (01:20)
[2020-05-26 05:13] LABS: Hematocrit 24.2 % (35.5-45.6); Mean Corpuscular HGB Conc 33 % (32-34); Mean Corpuscular Volume 79 fl (84-94); Platelet Count 260 K/mm3 (140-440); Red Blood Count 3.07 M/mm3 (3.65-5.03)
[2020-05-26 05:32] LABS: Red Cell Distribution Width 24.8 % (13.2-15.2)
[2020-05-26 05:37] LABS: Blood Urea Nitrogen 12 mg/dL (9-20); Calcium 7.7 mg/dL (8.4-10.2); Hemolysis Index 2
[2020-05-26 05:49] LABS: BUN/Creatinine Ratio 17
[2020-05-26] MEDS: PANTOPRAZOLE 40 MG TAB PO SCH ×2 (10:54→21:19)
[2020-05-26] MEDS: CLOPIDOGREL 75 MG TAB PO SCH (10:54)
[2020-05-26] MEDS: HEPARIN 5,000 UNIT/1 ML VIAL SUB-Q SCH ×2 (10:54→21:19)
[2020-05-26] MEDS: ASPIRIN 81 MG TAB CHEW PO SCH (10:54)
[2020-05-26 12:32] LABS: Total Cells Counted 100
[2020-05-26 12:47] LABS: Anisocytosis 2+
[2020-05-26 12:48] LABS: Hypochromasia Few; Platelet Estimate Consistent w Auto; Schistocytes Rare
--- NOTE | 2020-05-26 12:59 | Progress Note ---
Assessment and Plan Septic shock Metabolic Acidosis Acute Toxic metabolic encephalopathy Acute renal failure UTI (urinary tract infection) Acute Cystitis - continue antiinfective's per ID - will need ouitpatient surgery f/up - fall precautions - continue care as below otherwise; - continue empiric Cefepime (trend lactate, procalcitonin to aid clinical decision making) - continue accuchecks with glycemic control per SSI (While critically ill target blood glucose of 140-180 mg/dL; avoid hypoglycemia) - continue to wean supplemental oxygen for target O2 sat's > 90% acutely - aspiration precautions - prn bronchodilators with pulmonary hygiene per RT - avoid nephrotoxins, renally dose all medications - avoid benzodiazepine's, reduce the possibility of delirium - prn analgesia per pain score - Maintenance of sleep-wake cycle, avoid delirium - aspiration precautions - G.I. & VTE prophylaxis - PT/OT/ROM exercises - mobility protocols for pressure ulcer prophylaxis - Monitor hemodynamics closely - continue other care per attending / other consultants - discharge planning ongoing concurrently .... Re-evaluate in am & prn Subjective Date of service: 05/26/20 Principal diagnosis: Septic shock; Metabolic Acidosis; Ac, Toxic metabolic encephalopathy; EBENEZER Interval history: Patient is seen today for: Septic shock; Metabolic Acidosis; Acute Toxic metabolic encephalopathy; Acute renal failure; UTI (urinary tract infection) Seen and examined at bedside; 24hour events reviewed; nursing and respiratory care staff consulted; no adverse overnight events reported to me; resting peacefully in bed; remains on supplemental oxygen; afebrile; no emesis or overt aspiration Objective Vital Signs - 12hr 05/26/20 08:50 O2 Sat by Pulse 97 Oximetry Constitutional: no acute distress, other (elderly looking male with normal respiratory effort at rest) Eyes: non-icteric ENT: oropharynx moist Neck: supple, no lymphadenopathy, no JVD Effort: normal Ascultation: Bilateral: clear Percussion: Bilateral: not dull Cardiovascular: regular rate and rhythm Gastrointestinal: normoactive bowel sounds, soft, tender (mild, LLQ, RUQ), non- distended (protuberant'), other (RUQ J-P drain) Integumentary: normal Extremities: no cyanosis, no edema, pink and warm, pulses normal Neurologic: non-focal exam (grossly), pupils equal and round, CN II-XII normal, other (slow to respond) Psychiatric: other (flat affect) CBC and BMP: 05/26/20 04:16 05/27/20 06:23 ABG, PT/INR, D-dimer: PT/INR, D-dimer PT 15.5 Sec. (12.2-14.9) H 05/22/20 09:10 INR 1.25 (0.87-1.13) H 05/22/20 09:10 Abnormal lab findings: Abnormal Labs 05/22/20 05/22/20 05/22/20 09:10 09:10 09:10 WBC 17.9 H RBC 3.60 L Hgb 8.7 L Hct 26.8 L MCV 74 L MCH 24 L RDW 24.0 H Plt Count 621 H Lymph % (Auto) Marshall # (Auto) Seg Neutrophils % Seg Neuts % (Manual) 85.0 H Lymphocytes % (Manual) 5.0 L Monocytes % (Manual) 8.0 H Eosinophils % (Manual) Seg Neutrophils # Seg Neutrophils # Man 15.2 H Lymphocytes # (Manual) 0.9 L Monocytes # (Manual) 1.4 H Eosinophils # (Manual) PT INR APTT Sodium Potassium Chloride Carbon Dioxide BUN Creatinine Glucose POC Glucose Lactic Acid 3.30 H* Calcium Magnesium Direct Bilirubin Alkaline Phosphatase Troponin T 0.271 H* NT-Pro-B Natriuret Pep Albumin HDL Cholesterol 39 L Urine pH Urine WBC (Auto) Urine Creatinine Crossmatch 05/22/20 05/22/20 05/22/20 09:10 09:10 09:32 WBC RBC Hgb Hct MCV MCH RDW Plt Count Lymph % (Auto) Marshall # (Auto) Seg Neutrophils % Seg Neuts % (Manual) Lymphocytes % (Manual) Monocytes % (Manual) Eosinophils % (Manual) Seg Neutrophils # Seg Neutrophils # Man Lymphocytes # (Manual) Monocytes # (Manual) Eosinophils # (Manual) PT 15.5 H INR 1.25 H APTT 47.6 H Sodium 136 L Potassium Chloride 97.2 L Carbon Dioxide BUN 36 H Creatinine 3.8 H Glucose 133 H POC Glucose Lactic Acid Calcium 7.8 L Magnesium Direct Bilirubin 0.3 H Alkaline Phosphatase 248 H Troponin T NT-Pro-B Natriuret Pep 1448 H Albumin 2.8 L HDL Cholesterol Urine pH 8.0 H Urine WBC (Auto) > 182.0 H Urine Creatinine Crossmatch 02/05/22/20 05/22/20 09:49 11:42 19:48 WBC RBC Hgb Hct MCV MCH RDW Plt Count Lymph % (Auto) Marshall # (Auto) Seg Neutrophils % Seg Neuts % (Manual) Lymphocytes % (Manual) Monocytes % (Manual) Eosinophils % (Manual) Seg Neutrophils # Seg Neutrophils # Man Lymphocytes # (Manual) Monocytes # (Manual) Eosinophils # (Manual) PT INR APTT Sodium Potassium Chloride Carbon Dioxide BUN Creatinine Glucose POC Glucose Lactic Acid 3.70 H* 2.10 H* Calcium Magnesium Direct Bilirubin Alkaline Phosphatase Troponin T NT-Pro-B Natriuret Pep Albumin HDL Cholesterol Urine pH Urine WBC (Auto) Urine Creatinine 48.1 H Crossmatch 05/22/20 05/23/20 05/23/20 23:27 05:05 05:05 WBC 20.3 H RBC 2.73 L Hgb 6.6 L Hct 20.8 L D MCV 76 L MCH 24 L RDW 23.9 H Plt Count 546 H Lymph % (Auto) 11.5 L Marshall # (Auto) 1.2 H Seg Neutrophils % 81.5 H Seg Neuts % (Manual) Lymphocytes % (Manual) Monocytes % (Manual) Eosinophils % (Manual) Seg Neutrophils # 16.5 H Seg Neutrophils # Man Lymphocytes # (Manual) Monocytes # (Manual) Eosinophils # (Manual) PT INR APTT Sodium Potassium Chloride 112.5 H Carbon Dioxide 20 L BUN 26 H Creatinine 1.8 H D Glucose 135 H POC Glucose 124 H Lactic Acid Calcium 6.8 L Magnesium Direct Bilirubin Alkaline Phosphatase Troponin T NT-Pro-B Natriuret Pep Albumin HDL Cholesterol Urine pH Urine WBC (Auto) Urine Creatinine Crossmatch 05/23/20 05/23/20 05/23/20 05:38 06:10 11:33 WBC RBC Hgb Hct MCV MCH RDW Plt Count Lymph % (Auto) Marshall # (Auto) Seg Neutrophils % Seg Neuts % (Manual) Lymphocytes % (Manual) Monocytes % (Manual) Eosinophils % (Manual) Seg Neutrophils # Seg Neutrophils # Man Lymphocytes # (Manual) Monocytes # (Manual) Eosinophils # (Manual) PT INR APTT Sodium Potassium Chloride Carbon Dioxide BUN Creatinine Glucose POC Glucose 112 H 128 H Lactic Acid Calcium Magnesium Direct Bilirubin Alkaline Phosphatase Troponin T NT-Pro-B Natriuret Pep Albumin HDL Cholesterol Urine pH Urine WBC (Auto) Urine Creatinine Crossmatch See Detail 05/23/20 05/23/20 05/23/20 14:45 17:49 23:34 WBC RBC Hgb 8.4 L Hct 26.4 L MCV MCH RDW Plt Count Lymph % (Auto) Marshall # (Auto) Seg Neutrophils % Seg Neuts % (Manual) Lymphocytes % (Manual) Monocytes % (Manual) Eosinophils % (Manual) Seg Neutrophils # Seg Neutrophils # Man Lymphocytes # (Manual) Monocytes # (Manual) Eosinophils # (Manual) PT INR APTT Sodium Potassium Chloride Carbon Dioxide BUN Creatinine Glucose POC Glucose 112 H 116 H Lactic Acid Calcium Magnesium Direct Bilirubin Alkaline Phosphatase Troponin T NT-Pro-B Natriuret Pep Albumin HDL Cholesterol Urine pH Urine WBC (Auto) Urine Creatinine Crossmatch 05/24/20 05/24/20 05/25/20 05:45 05:45 05:00 WBC 18.4 H RBC 3.35 L Hgb 8.6 L Hct 26.5 L MCV 79 L MCH 26 L RDW 23.9 H Plt Count Lymph % (Auto) Marshall # (Auto) Seg Neutrophils % Seg Neuts % (Manual) 81.0 H Lymphocytes % (Manual) 12.0 L Monocytes % (Manual) Eosinophils % (Manual) Seg Neutrophils # Seg Neutrophils # Man 14.9 H Lymphocytes # (Manual) Monocytes # (Manual) 1.3 H Eosinophils # (Manual) PT INR APTT Sodium Potassium 3.1 L Chloride 109.5 H Carbon Dioxide BUN Creatinine Glucose 111 H POC Glucose Lactic Acid Calcium 6.8 L 7.2 L Magnesium 1.00 L Direct Bilirubin Alkaline Phosphatase Troponin T NT-Pro-B Natriuret Pep Albumin HDL Cholesterol Urine pH Urine WBC (Auto) Urine Creatinine Crossmatch 05/25/20 05/25/20 05/25/20 09:34 11:31 18:25 WBC 12.7 H RBC 3.14 L Hgb 8.0 L Hct 24.6 L MCV 78 L MCH 25 L RDW 25.0 H Plt Count Lymph % (Auto) Marshall # (Auto) Seg Neutrophils % Seg Neuts % (Manual) 94.0 H Lymphocytes % (Manual) 3.0 L Monocytes % (Manual) Eosinophils % (Manual) Seg Neutrophils # Seg Neutrophils # Man 11.9 H Lymphocytes # (Manual) 0.4 L Monocytes # (Manual) Eosinophils # (Manual) PT INR APTT Sodium Potassium Chloride Carbon Dioxide BUN Creatinine Glucose POC Glucose 63 L 57 L Lactic Acid Calcium Magnesium Direct Bilirubin Alkaline Phosphatase Troponin T NT-Pro-B Natriuret Pep Albumin HDL Cholesterol Urine pH Urine WBC (Auto) Urine Creatinine Crossmatch 05/25/20 05/26/20 05/26/20 23:44 04:16 04:16 WBC RBC 3.07 L Hgb 8.0 L Hct 24.2 L MCV 79 L MCH 26 L RDW 24.8 H Plt Count Lymph % (Auto) Marshall # (Auto) Seg Neutrophils % Seg Neuts % (Manual) 85.0 H Lymphocytes % (Manual) 8.0 L Monocytes % (Manual) Eosinophils % (Manual) 5.0 H Seg Neutrophils # Seg Neutrophils # Man 7.9 H Lymphocytes # (Manual) 0.7 L Monocytes # (Manual) Eosinophils # (Manual) 0.5 H PT INR APTT Sodium Potassium 3.4 L Chloride 108.6 H Carbon Dioxide BUN Creatinine 0.7 L Glucose 101 H POC Glucose 52 L Lactic Acid Calcium 7.7 L Magnesium Direct Bilirubin Alkaline Phosphatase Troponin T NT-Pro-B Natriuret Pep Albumin HDL Cholesterol Urine pH Urine WBC (Auto) Urine Creatinine Crossmatch Allied health notes reviewed: nursing
--- NOTE | 2020-05-26 14:33 | Progress Note ---
Assessment and Plan 1. Acute kidney injury: Vasomotor EBENEZER in the setting of septic shock. CT abdomen negative for hydro. ATN. Creatinine level is better. Monitor renal function. Avoid nephrotoxic agents. Meds dosage based on GFR. 2. FEN: Replete K. Monitor volume status and lytes. 3. Urosepsis, POA: Lactic acidosis. Broad spectrum Abx. Follow cultures. 4. Septic shock: Off pressors. 5. Toxic metabolic encephalopathy: Baseline MS is unknown. Monitor. 6. Anemia, POA: Transfuse prn. Monitor. 7. Gall bladder drain, POA. 8. Elevated blood sugar: Monitor. Subjective: Patient was seen and examined at the bedside. Examination: General appearance: well-developed, appears stated age, not in distress HEENT: ATNC, R pupil is dilated Neck: Trachea midline Respiratory: ctab Cardiology: regular, S1S2, no murmur Abdomen: soft, normoactive bowel sounds, RUQ drain, not tender, not distended Integumentary: warm and dry, no obvious rash Neurologic: alert, able to tell his name, R hemiplegia : Engel catheter Subjective Date of service: 05/26/20 Principal diagnosis: Septic shock; Metabolic Acidosis; Ac, Toxic metabolic encephalopathy; EBENEZER Objective - Vital Signs Vital signs: Vital Signs - 12hr 05/26/20 08:50 O2 Sat by Pulse 97 Oximetry - Lab 05/26/20 04:16 05/26/20 04:16 Most recent lab results Calcium 7.7 mg/dL (8.4-10.2) L 05/26/20 04:16 Phosphorus 2.80 mg/dL (2.5-4.5) 05/24/20 05:45 Magnesium 2.30 mg/dL (1.7-2.3) 05/25/20 05:00 Urine Creatinine 48.1 mg/dL (0.1-20.0) H 05/22/20 09:49 Urine Sodium 130 mmol/L 05/22/20 09:49 Medications & Allergies - Medications Allergies/Adverse Reactions: Allergies No Known Allergies Allergy (Unverified 04/14/18 14:09) Home Medications: Home Medications Medication Instructions Recorded Confirmed Last Taken Type Pantoprazole [Protonix TAB] 40 mg PO BID #60 tablet 04/14/18 05/22/20 Unknown Rx Aspirin [Aspirin BABY CHEW TAB] 81 mg PO QDAY #60 tab.chew 11/10/19 05/22/20 Unknown Rx AtorvaSTATin [Lipitor] 80 mg PO QHS #60 tablet 11/10/19 05/22/20 Unknown Rx Clopidogrel [Plavix] 75 mg PO QDAY #60 tablet 11/10/19 05/22/20 Unknown Rx NIFEdipine XL [Procardia Xl] 30 mg PO Q12HR #30 tablet 11/10/19 05/22/20 Unknown Rx carvediloL [Coreg] 3.125 mg PO BID #60 tablet 03/22/20 05/22/20 Unknown Rx Povidone-Iodine [Betadine] 1 applicatio TD DAILY 05/22/20 05/22/20 Unknown History Active Medications: Generic Name Dose Route Start Last Admin Trade Name Freq PRN Reason Stop Dose Admin Acetaminophen 650 mg 05/22/20 12:31 Acetaminophen 325 Mg Tab PO Q6H PRN Pain, Mild (1-3) Albuterol 2.5 mg 05/22/20 12:14 Albuterol 2.5 Mg/3 Ml Nebu IH Q3HRT PRN Shortness Of Breath Aspirin 81 mg 05/23/20 10:00 05/26/20 10:54 Aspirin 81 Mg Tab Chew PO 81 mg QDAY VANE Administration Atorvastatin Calcium 80 mg 05/22/20 22:00 05/25/20 21:27 Atorvastatin 40 Mg Tab PO Not Given QHS VANE Clopidogrel Bisulfate 75 mg 05/23/20 10:00 05/26/20 10:54 Clopidogrel 75 Mg Tab PO 75 mg QDAY VANE Administration Dextrose 25 ml 05/25/20 00:13 05/25/20 23:59 Dextrose 50% In Water (25gm) 50 Ml Syringe IV 25 ml Q30MIN PRN Administration Hypoglycemia Protocol Heparin Sodium (Porcine) 5,000 unit 05/22/20 22:00 05/26/20 10:54 Heparin 5,000 Unit/1 Ml Vial SUB-Q 5,000 unit Q12HR VANE Administration Hydromorphone HCl 0.25 mg 05/22/20 12:31 05/26/20 01:20 Hydromorphone 1 Mg/1 Ml Inj IV 0.25 mg Q4H PRN Administration Pain, Moderate (4-6) Cefepime HCl 2 gm in 100 mls @ 200 mls/hr 05/25/20 08:00 05/26/20 10:53 Cefepime/Ns 2 Gm/100 Ml IV 05/28/20 23:59 200 mls/hr Q8H VANE Administration Protocol Dextrose 1,000 mls @ 75 mls/hr 05/26/20 01:00 05/26/20 00:45 D5w IV 75 mls/hr DIRECT VANE Administration Pantoprazole Sodium 40 mg 05/22/20 22:00 05/26/20 10:54 Pantoprazole 40 Mg Tab PO 40 mg BID VANE Administration Sodium Chloride 10 ml 05/22/20 22:00 05/26/20 10:54 Sodium Chloride 0.9% 10 Ml Flush Syringe IV Not Given BID VANE Sodium Chloride 10 ml 05/22/20 12:14 Sodium Chloride 0.9% 10 Ml Flush Syringe IV PRN PRN LINE FLUSH
[2020-05-26] MEDS ORDERED: POTASSIUM CHLORIDE ER 20 MEQ TAB PO NR (14:34)
--- NOTE | 2020-05-26 15:29 | Progress Note ---
Assessment and Plan 69-year-old male with 1. Sepsis secondary to acute cystitis 2. Urinary tract infection 3. History of acute cholecystitis with placement of percutaneous cholecystostomy drain Reviewed MRCP images with Dr. Haque - incidental lipoma in duodenum. No filling defect in CBD and no biliary dilatation. Pt stable. Kranthi diet. Cholecystostomy drain patent. No pain. Nonfilling of duo on tube study may be due to sphincter spasm as review of MRCP does not show choledocolithiasis. Plan: 1. continue diet 2. GI consulted after initial MRCP report reviewed - discussed MRCP with Dr. Palumbo today. Input appreciated 3. continue cholecystostomy tube care 4. repeat LFTs pending - prior LFTs normal along with bilis 5. No intervention at this time. Leave cholecystostomy tube in place and patient may follow up in surgery clinic in 3-4 weeks for reevaluation. Thank you . Please call with any questions or concerns. Evaluation and treatment of this patient was during the time of the national and state emergency arising from COVID19 coronavirus pandemic. Treatment and procedures performed meet the current and available best practice and guidelines for patient during the COVID pandemic. Subjective Date of service: 05/26/20 Narrative: Pt seen and examined. Feels well today. More communicative and verbal today. Tolerating diet. c/o back soreness. NO abdominal pain. Objective Vital Signs - 12hr 05/26/20 08:50 O2 Sat by Pulse 97 Oximetry - General physical appearance Narrative Exam: Gen: Awake and alert. Oriented to person. NAD CV: S1, S2+ Resp: even and unlabored Abd: soft, NT, ND. RUQ drain with scant clear bilious drainage - Labs 05/26/20 04:16 05/26/20 04:16 Diabetes panel 05/26/20 Range/Units 04:16 Sodium 140 (137-145) mmol/L Potassium 3.4 L (3.6-5.0) mmol/L Chloride 108.6 H (98-107) mmol/L Carbon Dioxide 22 (22-30) mmol/L BUN 12 (9-20) mg/dL Creatinine 0.7 L (0.8-1.3) mg/dL Glucose 101 H (75-100) mg/dL Calcium 7.7 L (8.4-10.2) mg/dL Calcium panel 05/26/20 Range/Units 04:16 Calcium 7.7 L (8.4-10.2) mg/dL Pituitary panel 05/26/20 Range/Units 04:16 Sodium 140 (137-145) mmol/L Potassium 3.4 L (3.6-5.0) mmol/L Chloride 108.6 H (98-107) mmol/L Carbon Dioxide 22 (22-30) mmol/L BUN 12 (9-20) mg/dL Creatinine 0.7 L (0.8-1.3) mg/dL Glucose 101 H (75-100) mg/dL Calcium 7.7 L (8.4-10.2) mg/dL Adrenal panel 05/26/20 Range/Units 04:16 Sodium 140 (137-145) mmol/L Potassium 3.4 L (3.6-5.0) mmol/L Chloride 108.6 H (98-107) mmol/L Carbon Dioxide 22 (22-30) mmol/L BUN 12 (9-20) mg/dL Creatinine 0.7 L (0.8-1.3) mg/dL Glucose 101 H (75-100) mg/dL Calcium 7.7 L (8.4-10.2) mg/dL
--- NOTE | 2020-05-26 18:49 | Progress Note ---
Assessment and Plan Cultures: Blood culture no growth so far Urine culture no growth so far A/P: 69-year-old man past medical history CAD, CVA admitted with here from assisted. #Acute cystitis: With significant pyuria, seen on CT scan. Cultures no growth so far, with normal skin merry only #EBENEZER: Resolved #Cholecystitis: Improved inflammation seen on CT, cholecystostomy tube in place. Recs: -Increase cefepime to 2 g every 8 hours complete 7 days. -If discharging, would send with levofloxacin 750 mg every 24 hours to complete the above course. -Continue to follow white count. Thank you for the consult, we will continue to follow. Thuan Peguero MD [facility] ([facility]) O: [phone] F: [phone] Subjective Date of service: 05/26/20 Principal diagnosis: Septic shock; Metabolic Acidosis; Ac, Toxic metabolic encephalopathy; EBENEZER Interval history: Afebrile, normal white count. Cultures remain negative. Objective - Exam Narrative Exam: Physical Exam: Constitutional: Alert, cooperative. No acute distress Head, Ears, Nose: Normocephalic, atraumatic. External ears, nose normal Eyes: Conjunctivae/corneas clear. No icterus. No ptosis. Neck: Supple, no meningeal signs Oral: dentition fair, no thrush Cardiovascular: S1, S2 normal. Respiratory: Good air entry, clear to auscultation bilaterally GI: Soft, non-tender; bowel sounds normal. No peritoneal signs. +cholecystostomy tube Musculoskeletal: Bilateral foot wounds, left with healed necrotic ulcer, appears dry, no pus. Skin: No rash or abscess Hem/Lymphatic: No palpable cervical or supraclavicular nodes. No lymphangitis Psych: Mood ok. Affect normal Neurological: Awake, alert, oriented. No gross abnormality - Constitutional Vitals: Vital Signs Temp Pulse Resp BP Pulse Ox 98.1 F 72 16 122/60 97 05/25/20 23:58 05/25/20 23:58 05/25/20 23:58 05/25/20 23:58 05/26/20 08:50 Temperature -Last 24 Hours Temperature 98.1 F Temperature 97.4 F - Labs CBC & Chem 7: 05/26/20 04:16 05/26/20 04:16 Labs: Abnormal lab results 05/25/20 05/25/20 05/26/20 Range/Units 18:25 23:44 04:16 RBC 3.07 L (3.65-5.03) M/mm3 Hgb 8.0 L (11.8-15.2) gm/dl Hct 24.2 L (35.5-45.6) % MCV 79 L (84-94) fl MCH 26 L (28-32) pg RDW 24.8 H (13.2-15.2) % Seg Neuts % (Manual) 85.0 H (40.0-70.0) % Lymphocytes % (Manual) 8.0 L (13.4-35.0) % Eosinophils % (Manual) 5.0 H (0.0-4.3) % Seg Neutrophils # Man 7.9 H (1.8-7.7) K/mm3 Lymphocytes # (Manual) 0.7 L (1.2-5.4) K/mm3 Eosinophils # (Manual) 0.5 H (0.0-0.4) K/mm3 Potassium (3.6-5.0) mmol/L Chloride (98-107) mmol/L Creatinine (0.8-1.3) mg/dL Glucose (75-100) mg/dL POC Glucose 57 L 52 L (70-105) mg/dL Calcium (8.4-10.2) mg/dL 05/26/20 05/26/20 Range/Units 04:16 12:41 RBC (3.65-5.03) M/mm3 Hgb (11.8-15.2) gm/dl Hct (35.5-45.6) % MCV (84-94) fl MCH (28-32) pg RDW (13.2-15.2) % Seg Neuts % (Manual) (40.0-70.0) % Lymphocytes % (Manual) (13.4-35.0) % Eosinophils % (Manual) (0.0-4.3) % Seg Neutrophils # Man (1.8-7.7) K/mm3 Lymphocytes # (Manual) (1.2-5.4) K/mm3 Eosinophils # (Manual) (0.0-0.4) K/mm3 Potassium 3.4 L (3.6-5.0) mmol/L Chloride 108.6 H (98-107) mmol/L Creatinine 0.7 L (0.8-1.3) mg/dL Glucose 101 H (75-100) mg/dL POC Glucose 64 L (70-105) mg/dL Calcium 7.7 L (8.4-10.2) mg/dL
--- NOTE | 2020-05-26 19:21 | Gastroenterology Consultation ---
History of Present Illness - Reason for Consult Consult date: 05/26/20 abnormal MRCP/cbd filling defects Requesting physician: ARIANNA PEACE - History of Present Illness The patient is a 69 yo male who presents from longterm with severe sepsis from acute cystitis. Patient with h/o cad and vascular disease on plavix, provides minimal history thus obtained mostly from chart review and discussion with other providers. He was admitted in March with acute cholecystitis and had percutaneous cholecystotomy drain placed (intact on admission), and improved clinically during that admission. No reported abd complaints this admission. Liver enzymes normal on admission. 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 Past History Past Medical History: hypertension, hyperlipidemia, stroke Past Surgical History: No surgical history, Other (Reviewed) Social history: . denies: smoking, alcohol abuse, prescription drug abuse Family history: hypertension Medications and Allergies Allergies Allergy/AdvReac Type Severity Reaction Status Date / Time No Known Allergies Allergy Unverified 04/14/18 14:09 Home Medications Medication Instructions Recorded Confirmed Last Taken Type Pantoprazole [Protonix TAB] 40 mg PO BID #60 tablet 04/14/18 05/22/20 Unknown Rx Aspirin [Aspirin BABY CHEW TAB] 81 mg PO QDAY #60 tab.chew 11/10/19 05/22/20 Unknown Rx AtorvaSTATin [Lipitor] 80 mg PO QHS #60 tablet 11/10/19 05/22/20 Unknown Rx Clopidogrel [Plavix] 75 mg PO QDAY #60 tablet 11/10/19 05/22/20 Unknown Rx NIFEdipine XL [Procardia Xl] 30 mg PO Q12HR #30 tablet 11/10/19 05/22/20 Unknown Rx carvediloL [Coreg] 3.125 mg PO BID #60 tablet 03/22/20 05/22/20 Unknown Rx Povidone-Iodine [Betadine] 1 applicatio TD DAILY 05/22/20 05/22/20 Unknown History Active Meds: Active Medications Acetaminophen (Acetaminophen 325 Mg Tab) 650 mg PO Q6H PRN PRN Reason: Pain, Mild (1-3) Albuterol (Albuterol 2.5 Mg/3 Ml Nebu) 2.5 mg IH Q3HRT PRN PRN Reason: Shortness Of Breath Aspirin (Aspirin 81 Mg Tab Chew) 81 mg PO QDAY [facility] Last Admin: 05/26/20 10:54 Dose: 81 mg Documented by: Atorvastatin Calcium (Atorvastatin 40 Mg Tab) 80 mg PO QHS [facility] Last Admin: 05/25/20 21:27 Dose: Not Given Documented by: Clopidogrel Bisulfate (Clopidogrel 75 Mg Tab) 75 mg PO QDAY [facility] Last Admin: 05/26/20 10:54 Dose: 75 mg Documented by: Dextrose (Dextrose 50% In Water (25gm) 50 Ml Syringe) 25 ml IV Q30MIN PRN; Protocol PRN Reason: Hypoglycemia Last Admin: 05/25/20 23:59 Dose: 25 ml Documented by: Heparin Sodium (Porcine) (Heparin 5,000 Unit/1 Ml Vial) 5,000 unit SUB-Q Q12HR [facility] Last Admin: 05/26/20 10:54 Dose: 5,000 unit Documented by: Hydromorphone HCl (Hydromorphone 1 Mg/1 Ml Inj) 0.25 mg IV Q4H PRN PRN Reason: Pain, Moderate (4-6) Last Admin: 05/26/20 01:20 Dose: 0.25 mg Documented by: Cefepime HCl (Cefepime/Ns 2 Gm/100 Ml) 2 gm in 100 mls @ 200 mls/hr IV Q8H [facility]; Protocol Stop: 05/28/20 23:59 Last Admin: 05/26/20 15:59 Dose: 200 mls/hr Documented by: Dextrose (D5w) 1,000 mls @ 75 mls/hr IV DIRECT [facility] Last Admin: 05/26/20 15:58 Dose: 75 mls/hr Documented by: Pantoprazole Sodium (Pantoprazole 40 Mg Tab) 40 mg PO BID [facility] Last Admin: 05/26/20 10:54 Dose: 40 mg Documented by: Sodium Chloride (Sodium Chloride 0.9% 10 Ml Flush Syringe) 10 ml IV BID [facility] Last Admin: 05/26/20 10:54 Dose: Not Given Documented by: Sodium Chloride (Sodium Chloride 0.9% 10 Ml Flush Syringe) 10 ml IV PRN PRN PRN Reason: LINE FLUSH Reviewed/updated patient's home and current medications Review of Systems - Review of Systems ROS unobtainable: due to mental status Exam - Constitutional Vital Signs: Temp Pulse Resp BP Pulse Ox 97.6 F 76 18 97/44 98 05/26/20 15:35 05/26/20 12:43 05/26/20 15:35 05/26/20 15:35 05/26/20 12:43 General appearance: no acute distress - Respiratory Respiratory effort: normal Respiratory: bilateral: CTA - Cardiovascular Rhythm: regular Heart Sounds: Present: S1 & S2 - Gastrointestinal General gastrointestinal: Present: soft, non-tender, non-distended, other (+ right sided cholecystostomy tube) - Neurologic Neurological: other (minimally verbal) - Labs CBC & Chem 7: 05/26/20 04:16 05/26/20 04:16 Lab Results: Laboratory Results - last 24 hr 05/25/20 05/25/20 05/26/20 18:25 23:44 00:47 WBC RBC Hgb Hct MCV MCH MCHC RDW Plt Count Add Manual Diff Total Counted Seg Neuts % (Manual) Lymphocytes % (Manual) Monocytes % (Manual) Eosinophils % (Manual) Nucleated RBC % Seg Neutrophils # Man Band Neutrophils # Lymphocytes # (Manual) Abs React Lymphs (Man) Monocytes # (Manual) Eosinophils # (Manual) Basophils # (Manual) Metamyelocytes # Myelocytes # Promyelocytes # Blast Cells # WBC Morphology Hypersegmented Neuts Hyposegmented Neuts Hypogranular Neuts Smudge Cells Toxic Granulation Toxic Vacuolation Dohle Bodies Pelger-Huet Anomaly Lynne Rods Platelet Estimate Clumped Platelets Plt Clumps, EDTA Large Platelets Giant Platelets Platelet Satelliting Plt Morphology Comment RBC Morphology Dimorphic RBCs Polychromasia Hypochromasia Poikilocytosis Anisocytosis Microcytosis Macrocytosis Spherocytes Pappenheimer Bodies Sickle Cells Target Cells Tear Drop Cells Ovalocytes Helmet Cells Araujo-Timberon Bodies Valencia Rings Paul Cells Bite Cells Crenated Cell Elliptocytes Acanthocytes (Spur) Rouleaux Hemoglobin C Crystals Schistocytes Malaria parasites Chandrakant Bodies Hem Pathologist Commnt Sodium Potassium Chloride Carbon Dioxide Anion Gap BUN Creatinine Estimated GFR BUN/Creatinine Ratio Glucose POC Glucose 57 L 52 L 83 Calcium 05/26/20 05/26/20 05/26/20 04:16 04:16 05:25 WBC 9.3 RBC 3.07 L Hgb 8.0 L Hct 24.2 L MCV 79 L MCH 26 L MCHC 33 RDW 24.8 H Plt Count 260 Add Manual Diff Complete Total Counted 100 Seg Neuts % (Manual) 85.0 H Lymphocytes % (Manual) 8.0 L Monocytes % (Manual) 2.0 Eosinophils % (Manual) 5.0 H Nucleated RBC % Not Reportable Seg Neutrophils # Man 7.9 H Band Neutrophils # 0.0 Lymphocytes # (Manual) 0.7 L Abs React Lymphs (Man) 0.0 Monocytes # (Manual) 0.2 Eosinophils # (Manual) 0.5 H Basophils # (Manual) 0.0 Metamyelocytes # 0.0 Myelocytes # 0.0 Promyelocytes # 0.0 Blast Cells # 0.0 WBC Morphology Not Reportable Hypersegmented Neuts Not Reportable Hyposegmented Neuts Not Reportable Hypogranular Neuts Not Reportable Smudge Cells Not Reportable Toxic Granulation Not Reportable Toxic Vacuolation Not Reportable Dohle Bodies Not Reportable Pelger-Huet Anomaly Not Reportable Lynne Rods Not Reportable Platelet Estimate Consistent w auto Clumped Platelets Not Reportable Plt Clumps, EDTA Not Reportable Large Platelets Not Reportable Giant Platelets Not Reportable Platelet Satelliting Not Reportable Plt Morphology Comment Not Reportable RBC Morphology Not Reportable Dimorphic RBCs Not Reportable Polychromasia Not Reportable Hypochromasia Few Poikilocytosis Not Reportable Anisocytosis 2+ Microcytosis Not Reportable Macrocytosis Not Reportable Spherocytes Not Reportable Pappenheimer Bodies Not Reportable Sickle Cells Not Reportable Target Cells Not Reportable Tear Drop Cells Not Reportable Ovalocytes Not Reportable Helmet Cells Not Reportable Araujo-Timberon Bodies Not Reportable Valencia Rings Not Reportable Paul Cells Not Reportable Bite Cells Not Reportable Crenated Cell Not Reportable Elliptocytes Few Acanthocytes (Spur) Not Reportable Rouleaux Not Reportable Hemoglobin C Crystals Not Reportable Schistocytes Rare Malaria parasites Not Reportable Chandrakant Bodies Not Reportable Hem Pathologist Commnt No Sodium 140 Potassium 3.4 L Chloride 108.6 H Carbon Dioxide 22 Anion Gap 13 BUN 12 Creatinine 0.7 L Estimated GFR > 60 BUN/Creatinine Ratio 17 Glucose 101 H POC Glucose 99 Calcium 7.7 L 05/26/20 05/26/20 12:41 16:56 WBC RBC Hgb Hct MCV MCH MCHC RDW Plt Count Add Manual Diff Total Counted Seg Neuts % (Manual) Lymphocytes % (Manual) Monocytes % (Manual) Eosinophils % (Manual) Nucleated RBC % Seg Neutrophils # Man Band Neutrophils # Lymphocytes # (Manual) Abs React Lymphs (Man) Monocytes # (Manual) Eosinophils # (Manual) Basophils # (Manual) Metamyelocytes # Myelocytes # Promyelocytes # Blast Cells # WBC Morphology Hypersegmented Neuts Hyposegmented Neuts Hypogranular Neuts Smudge Cells Toxic Granulation Toxic Vacuolation Dohle Bodies Pelger-Huet Anomaly Lynne Rods Platelet Estimate Clumped Platelets Plt Clumps, EDTA Large Platelets Giant Platelets Platelet Satelliting Plt Morphology Comment RBC Morphology Dimorphic RBCs Polychromasia Hypochromasia Poikilocytosis Anisocytosis Microcytosis Macrocytosis Spherocytes Pappenheimer Bodies Sickle Cells Target Cells Tear Drop Cells Ovalocytes Helmet Cells Araujo-Timberon Bodies Valencia Rings Braddock Cells Bite Cells Crenated Cell Elliptocytes Acanthocytes (Spur) Rouleaux Hemoglobin C Crystals Schistocytes Malaria parasites Chandrakant Bodies Hem Pathologist Commnt Sodium Potassium Chloride Carbon Dioxide Anion Gap BUN Creatinine Estimated GFR BUN/Creatinine Ratio Glucose POC Glucose 64 L 93 Calcium - Imaging MRI: report reviewed Assessment and Plan 1. 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 liver enzymes normal on admission (will repeat levels), and no obvious gi complaints. on abx for severe sepsis 2/2 acute cystitis. would manage biliary findings conservatively from gi stand point given other medical issues/comorbidities, and has cholecystotomy tube in place. no further inpatient recommendations from gi at this time. will sign off, please call as needed.
[2020-05-27 01:50] LABS: Alanine Aminotransferase 9 units/L (7-56); Albumin 1.9 g/dL (3.9-5)
[2020-05-27 02:01] LABS: Bilirubin,Direct < 0.2 mg/dL (0-0.2)
[2020-05-27] MEDS: DEXTROSE 5% IN WATER 1,000 ML IV SCH ×2 (03:17→18:44)
[2020-05-27 07:07] LABS: BUN/Creatinine Ratio 13; Blood Urea Nitrogen 10 mg/dL (9-20); Calcium 7.4 mg/dL (8.4-10.2); Hemolysis Index 8
[2020-05-27] MEDS: CEFEPIME/NS 2 GM/100 ML 2 GM/100 ML BAG IV SCH ×3 (08:49→23:28)
[2020-05-27] MEDS: PANTOPRAZOLE 40 MG TAB PO SCH ×2 (08:59→21:37)
[2020-05-27] MEDS: CLOPIDOGREL 75 MG TAB PO SCH (08:59)
[2020-05-27] MEDS: ASPIRIN 81 MG TAB CHEW PO SCH (09:00)
[2020-05-27] MEDS: HEPARIN 5,000 UNIT/1 ML VIAL SUB-Q SCH ×2 (09:00→21:37)
--- NOTE | 2020-05-27 09:41 | Progress Note ---
Assessment and Plan 1. Acute kidney injury: Vasomotor EBENEZER in the setting of septic shock. CT abdomen negative for hydro. ATN. Creatinine level is better. Monitor renal function. Avoid nephrotoxic agents. Meds dosage based on GFR. 2. FEN: Replete K. Monitor volume status and lytes. 3. Urosepsis, POA: Lactic acidosis. Broad spectrum Abx. Follow cultures. 4. Septic shock: Off pressors. 5. Toxic metabolic encephalopathy: Baseline MS is unknown. Monitor. 6. Anemia, POA: Transfuse prn. Monitor. 7. Gall bladder drain, POA. 8. Elevated blood sugar: Monitor. Subjective: Patient was seen and examined at the bedside. Examination: General appearance: well-developed, appears stated age, not in distress HEENT: ATNC, R pupil is dilated Neck: Trachea midline Respiratory: ctab Cardiology: regular, S1S2, no murmur Abdomen: soft, normoactive bowel sounds, RUQ drain, not tender, not distended Integumentary: warm and dry, no obvious rash Neurologic: alert, able to tell his name, R hemiplegia : Engel catheter Subjective Date of service: 05/27/20 Principal diagnosis: Septic shock; Metabolic Acidosis; Ac, Toxic metabolic encephalopathy; EBENEZER Objective - Vital Signs Vital signs: Vital Signs - 12hr 05/26/20 23:53 Temperature 97.4 F L Pulse Rate 81 Respiratory 18 Rate Blood Pressure 116/54 O2 Sat by Pulse 93 Oximetry - Lab 05/26/20 04:16 05/27/20 06:23 Most recent lab results Calcium 7.4 mg/dL (8.4-10.2) L 05/27/20 06:23 Phosphorus 2.80 mg/dL (2.5-4.5) 05/24/20 05:45 Magnesium 2.30 mg/dL (1.7-2.3) 05/25/20 05:00 Urine Creatinine 48.1 mg/dL (0.1-20.0) H 05/22/20 09:49 Urine Sodium 130 mmol/L 05/22/20 09:49 Medications & Allergies - Medications Allergies/Adverse Reactions: Allergies No Known Allergies Allergy (Unverified 04/14/18 14:09) Home Medications: Home Medications Medication Instructions Recorded Confirmed Last Taken Type Pantoprazole [Protonix TAB] 40 mg PO BID #60 tablet 04/14/18 05/22/20 Unknown Rx Aspirin [Aspirin BABY CHEW TAB] 81 mg PO QDAY #60 tab.chew 11/10/19 05/22/20 Unknown Rx AtorvaSTATin [Lipitor] 80 mg PO QHS #60 tablet 11/10/19 05/22/20 Unknown Rx Clopidogrel [Plavix] 75 mg PO QDAY #60 tablet 11/10/19 05/22/20 Unknown Rx NIFEdipine XL [Procardia Xl] 30 mg PO Q12HR #30 tablet 11/10/19 05/22/20 Unknown Rx carvediloL [Coreg] 3.125 mg PO BID #60 tablet 03/22/20 05/22/20 Unknown Rx Povidone-Iodine [Betadine] 1 applicatio TD DAILY 05/22/20 05/22/20 Unknown History Active Medications: Generic Name Dose Route Start Last Admin Trade Name Freq PRN Reason Stop Dose Admin Acetaminophen 650 mg 05/22/20 12:31 Acetaminophen 325 Mg Tab PO Q6H PRN Pain, Mild (1-3) Albuterol 2.5 mg 05/22/20 12:14 Albuterol 2.5 Mg/3 Ml Nebu IH Q3HRT PRN Shortness Of Breath Aspirin 81 mg 05/23/20 10:00 05/27/20 09:00 Aspirin 81 Mg Tab Chew PO 81 mg QDAY [facility] Administration Atorvastatin Calcium 80 mg 05/22/20 22:00 05/26/20 21:19 Atorvastatin 40 Mg Tab PO 80 mg QHS [facility] Administration Clopidogrel Bisulfate 75 mg 05/23/20 10:00 05/27/20 08:59 Clopidogrel 75 Mg Tab PO 75 mg QDAY [facility] Administration Dextrose 25 ml 05/25/20 00:13 05/25/20 23:59 Dextrose 50% In Water (25gm) 50 Ml Syringe IV 25 ml Q30MIN PRN Administration Hypoglycemia Protocol Heparin Sodium (Porcine) 5,000 unit 05/22/20 22:00 05/27/20 09:00 Heparin 5,000 Unit/1 Ml Vial SUB-Q 5,000 unit Q12HR [facility] Administration Hydromorphone HCl 0.25 mg 05/22/20 12:31 05/26/20 01:20 Hydromorphone 1 Mg/1 Ml Inj IV 0.25 mg Q4H PRN Administration Pain, Moderate (4-6) Cefepime HCl 2 gm in 100 mls @ 200 mls/hr 05/25/20 08:00 05/27/20 08:49 Cefepime/Ns 2 Gm/100 Ml IV 05/28/20 23:59 200 mls/hr Q8H [facility] Administration Protocol Dextrose 1,000 mls @ 75 mls/hr 05/26/20 01:00 05/27/20 03:17 D5w IV 75 mls/hr DIRECT [facility] Administration Pantoprazole Sodium 40 mg 05/22/20 22:00 05/27/20 08:59 Pantoprazole 40 Mg Tab PO 40 mg BID [facility] Administration Sodium Chloride 10 ml 05/22/20 22:00 05/27/20 09:31 Sodium Chloride 0.9% 10 Ml Flush Syringe IV 10 ml BID [facility] Administration Sodium Chloride 10 ml 05/22/20 12:14 Sodium Chloride 0.9% 10 Ml Flush Syringe IV PRN PRN LINE FLUSH
[2020-05-27] MEDS ORDERED: POTASSIUM CHLORIDE ER 20 MEQ TAB PO SCH (11:00)
--- NOTE | 2020-05-27 13:07 | Progress Note ---
Assessment and Plan Assessment and plan: (1) Septic shock Current Visit: Yes Status: Acute Plan to address problem: Sepsis protocol: CBC, CMP, chest x-ray, urinalysis, IV antibiotic therapy, blood cultures., IV pressor support, maintain mean arterial pressure greater than or equal to 65, monitor urine output every shift, serial lactic acid level. Critical care team consulted. The high probability of a clinically significant, sudden or life threatening deterioration of the [neuro, renal, infectious disease] system(s) required my full and direct attention, intervention and personal management. The aggregate critical care time was [65] minutes. This time is in addition to time spent performing reported procedures but includes the following: [x] Data Review and interpretation [x] Patient assessment and monitoring of vital signs [x] Documentation [x] Medication orders and management (2) Acidosis Current Visit: Yes Status: Acute Plan to address problem: IV fluid resuscitation therapy, BMP, repeat BMP in a.m., IV bicarbonate therapy x1. Serial lactic acid level. (3) Toxic metabolic encephalopathy Current Visit: Yes Status: Acute Plan to address problem: Supportive care, treat sepsis, IV fluid resuscitation therapy, neuro check, seizure precautions. (4) Acute renal failure Current Visit: Yes Status: Acute Qualifiers: Acute renal failure type: with acute tubular necrosis Qualified Code(s): N17.0 - Acute kidney failure with tubular necrosis Plan to address problem: IV fluid resuscitation therapy, nephrology team consulted in ED, urine electrolytes, supportive care. IV fluid resuscitation therapy. (5) UTI (urinary tract infection) Current Visit: Yes Status: Acute Qualifiers: Encounter type: initial encounter Plan to address problem: Urinalysis, CBC, IV antibiotic therapy, supportive care, blood cultures. (6) DVT prophylaxis Current Visit: Yes Status: Acute Plan to address problem: SCD to bilateral lower extremities while in bed, prophylactic anticoagulation. (7) Advance care planning Current Visit: Yes Status: Acute Plan to address problem: Disease education conducted, patient is full code, prognosis discussed, diagnosis discussed, care plan discussed, +30 minutes. 05/23/2020 -Septic shock likely due to UTI, patient is on IV cefepime, IV fluid and pressor support. Critical care consulted -Acute renal failure, improved with IV fluids, nephrology consulted 05/24/2020 -Admitted for septic shock due to UTI, patient is on IV cefepime, IV fluids, pressor support, ID consulted. -Acute renal failure IV fluids and nephrology consult -Patient is saturating 100% on room air -Patient was alert 05/25/2020 -Patient is on IV cefepime and ID increase the dose. -Acute renal failure is improving -Patient had history of cholecystostomy tube placement and was seen by general surgery and order imaging study. -Patient is still on pressors for low blood pressure 05/27/2020 -Patient was admitted for septic shock and he is doing well. Continue with cef epime while he is here and can be discharged with po Levaquin to finish a total of 7 days course of antibiotics. He was evaluated by general surgery and imaging was done and no further work-up is needed. GI also saw the patient. Patient is stable for discharge Case management is working for placement. Patient's family does not want him to go back to the facility where he came from. History Interval history: Patient was seen and evaluated this morning Patient was alert Hospitalist Physical - Physical exam Narrative exam: Not in cardiopulmonary distress. The patient appeared well nourished and normally developed. Vital signs as documented. Head exam is unremarkable. No scleral icterus . Neck is without jugular venous distension, thyromegaly, or carotid bruits. Lungs are clear to auscultation. Cardiac exam reveals regular rate and Rhythm. Abdominal exam reveals normal bowel sounds, nontender, no organomegaly. Extremities are nonedematous and both femoral and pedal pulses are normal. AIR BRAKES INSPECTOR: Right hemiparesis. Patient was alert. - Constitutional Vitals: Temp Pulse Resp BP Pulse Ox 98.5 F 72 18 110/60 94 05/27/20 08:00 05/27/20 08:00 05/27/20 08:00 05/27/20 08:00 05/27/20 08:00 General appearance: Present: mild distress HEART Score - HEART Score Troponin: Troponin T 0.271 ng/mL (0.00-0.029) H* 05/22/20 09:10 Results - Labs CBC & Chem 7: 05/26/20 04:16 05/27/20 06:23 Labs: Laboratory Last Values WBC 9.3 K/mm3 (4.5-11.0) 05/26/20 04:16 RBC 3.07 M/mm3 (3.65-5.03) L 05/26/20 04:16 Hgb 8.0 gm/dl (11.8-15.2) L 05/26/20 04:16 Hct 24.2 % (35.5-45.6) L 05/26/20 04:16 MCV 79 fl (84-94) L 05/26/20 04:16 MCH 26 pg (28-32) L 05/26/20 04:16 MCHC 33 % (32-34) 05/26/20 04:16 RDW 24.8 % (13.2-15.2) H 05/26/20 04:16 Plt Count 260 K/mm3 (140-440) 05/26/20 04:16 Lymph % (Auto) 11.5 % (13.4-35.0) L 05/23/20 05:05 [place] % (Auto) 5.8 % (0.0-7.3) 05/23/20 05:05 Eos % (Auto) 0.8 % (0.0-4.3) 05/23/20 05:05 Baso % (Auto) 0.4 % (0.0-1.8) 05/23/20 05:05 Lymph # (Auto) 2.3 K/mm3 (1.2-5.4) 05/23/20 05:05 [place] # (Auto) 1.2 K/mm3 (0.0-0.8) H 05/23/20 05:05 Eos # (Auto) 0.2 K/mm3 (0.0-0.4) 05/23/20 05:05 Baso # (Auto) 0.1 K/mm3 (0.0-0.1) 05/23/20 05:05 Add Manual Diff Complete 05/26/20 04:16 Total Counted 100 05/26/20 04:16 Seg Neutrophils % 81.5 % (40.0-70.0) H 05/23/20 05:05 Seg Neuts % (Manual) 85.0 % (40.0-70.0) H 05/26/20 04:16 Band Neutrophils % 2.0 % 05/22/20 09:10 Lymphocytes % (Manual) 8.0 % (13.4-35.0) L 05/26/20 04:16 Monocytes % (Manual) 2.0 % (0.0-7.3) 05/26/20 04:16 Eosinophils % (Manual) 5.0 % (0.0-4.3) H 05/26/20 04:16 Myelocytes % 1.0 % 05/25/20 09:34 Promyelocytes % 0 % 05/25/20 09:34 Nucleated RBC % Not Reportable 05/26/20 04:16 Seg Neutrophils # 16.5 K/mm3 (1.8-7.7) H 05/23/20 05:05 Seg Neutrophils # Man 7.9 K/mm3 (1.8-7.7) H 05/26/20 04:16 Band Neutrophils # 0.0 K/mm3 05/26/20 04:16 Lymphocytes # (Manual) 0.7 K/mm3 (1.2-5.4) L 05/26/20 04:16 Abs React Lymphs (Man) 0.0 K/mm3 05/26/20 04:16 Monocytes # (Manual) 0.2 K/mm3 (0.0-0.8) 05/26/20 04:16 Eosinophils # (Manual) 0.5 K/mm3 (0.0-0.4) H 05/26/20 04:16 Basophils # (Manual) 0.0 K/mm3 (0.0-0.1) 05/26/20 04:16 Metamyelocytes # 0.0 K/mm3 05/26/20 04:16 Myelocytes # 0.0 K/mm3 05/26/20 04:16 Promyelocytes # 0.0 K/mm3 05/26/20 04:16 Blast Cells # 0.0 K/mm3 05/26/20 04:16 WBC Morphology Not Reportable 05/26/20 04:16 Hypersegmented Neuts Not Reportable 05/26/20 04:16 Hyposegmented Neuts Not Reportable 05/26/20 04:16 Hypogranular Neuts Not Reportable 05/26/20 04:16 Smudge Cells Not Reportable 05/26/20 04:16 Toxic Granulation Not Reportable 05/26/20 04:16 Toxic Vacuolation Not Reportable 05/26/20 04:16 Dohle Bodies Not Reportable 05/26/20 04:16 Pelger-Huet Anomaly Not Reportable 05/26/20 04:16 Lynne Rods Not Reportable 05/26/20 04:16 Platelet Estimate Consistent w auto 05/26/20 04:16 Clumped Platelets Not Reportable 05/26/20 04:16 Plt Clumps, EDTA Not Reportable 05/26/20 04:16 Large Platelets Not Reportable 05/26/20 04:16 Giant Platelets Not Reportable 05/26/20 04:16 Platelet Satelliting Not Reportable 05/26/20 04:16 Plt Morphology Comment Not Reportable 05/26/20 04:16 RBC Morphology Not Reportable 05/26/20 04:16 Dimorphic RBCs Not Reportable 05/26/20 04:16 Polychromasia Not Reportable 05/26/20 04:16 Hypochromasia Few 05/26/20 04:16 Poikilocytosis Not Reportable 05/26/20 04:16 Anisocytosis 2+ 05/26/20 04:16 Microcytosis Not Reportable 05/26/20 04:16 Macrocytosis Not Reportable 05/26/20 04:16 Spherocytes Not Reportable 05/26/20 04:16 Pappenheimer Bodies Not Reportable 05/26/20 04:16 Sickle Cells Not Reportable 05/26/20 04:16 Target Cells Not Reportable 05/26/20 04:16 Tear Drop Cells Not Reportable 05/26/20 04:16 Ovalocytes Not Reportable 05/26/20 04:16 Helmet Cells Not Reportable 05/26/20 04:16 [place] Bodies Not Reportable 05/26/20 04:16 [place] Rings Not Reportable 05/26/20 04:16 Paul Cells Not Reportable 05/26/20 04:16 Bite Cells Not Reportable 05/26/20 04:16 Crenated Cell Not Reportable 05/26/20 04:16 Elliptocytes Few 05/26/20 04:16 Acanthocytes (Spur) Not Reportable 05/26/20 04:16 Rouleaux Not Reportable 05/26/20 04:16 Hemoglobin C Crystals Not Reportable 05/26/20 04:16 Schistocytes Rare 05/26/20 04:16 Malaria parasites Not Reportable 05/26/20 04:16 [place] Bodies Not Reportable 05/26/20 04:16 Hem Pathologist Commnt No 05/26/20 04:16 PT 15.5 Sec. (12.2-14.9) H 05/22/20 09:10 INR 1.25 (0.87-1.13) H 05/22/20 09:10 APTT 47.6 Sec. (24.2-36.6) H 05/22/20 09:10 Sodium 135 mmol/L (137-145) L 05/27/20 06:23 Potassium 3.4 mmol/L (3.6-5.0) L 05/27/20 06:23 Chloride 102.9 mmol/L (98-107) 05/27/20 06:23 Carbon Dioxide 22 mmol/L (22-30) 05/27/20 06:23 Anion Gap 14 mmol/L 05/27/20 06:23 BUN 10 mg/dL (9-20) 05/27/20 06:23 Creatinine 0.8 mg/dL (0.8-1.3) 05/27/20 06:23 Estimated GFR > 60 ml/min 05/27/20 06:23 BUN/Creatinine Ratio 13 % 05/27/20 06:23 Glucose 98 mg/dL (75-100) 05/27/20 06:23 POC Glucose 88 mg/dL (70-105) 05/27/20 05:50 Lactic Acid 0.90 mmol/L (0.7-2.0) 05/22/20 23:25 Calcium 7.4 mg/dL (8.4-10.2) L 05/27/20 06:23 Phosphorus 2.80 mg/dL (2.5-4.5) 05/24/20 05:45 Magnesium 2.30 mg/dL (1.7-2.3) 05/25/20 05:00 Total Bilirubin 0.30 mg/dL (0.1-1.2) 05/27/20 00:45 Direct Bilirubin < 0.2 mg/dL (0-0.2) 05/27/20 00:45 Indirect Bilirubin 0.1 mg/dL 05/27/20 00:45 AST 17 units/L (5-40) 05/27/20 00:45 ALT 9 units/L (7-56) 05/27/20 00:45 Alkaline Phosphatase 566 units/L (35-129) H 05/27/20 00:45 Troponin T 0.271 ng/mL (0.00-0.029) H* 05/22/20 09:10 NT-Pro-B Natriuret Pep 1448 pg/mL (0-900) H 05/22/20 09:10 Total Protein 5.3 g/dL (6.3-8.2) L D 05/27/20 00:45 Albumin 1.9 g/dL (3.9-5) L 05/27/20 00:45 Albumin/Globulin Ratio 0.6 % 05/27/20 00:45 Triglycerides 143 mg/dL (2-149) 05/22/20 09:10 Cholesterol 118 mg/dL (50-199) 05/22/20 09:10 LDL Cholesterol Direct 55 mg/dL (50-130) 05/22/20 09:10 HDL Cholesterol 39 mg/dL (40-59) L 05/22/20 09:10 Cholesterol/HDL Ratio 3.02 % 05/22/20 09:10 Urine Color [place] (Yellow) 05/22/20 09:32 Urine Turbidity Cloudy (Clear) 05/22/20 09:32 Urine pH 8.0 (5.0-7.0) H 05/22/20 09:32 Ur Specific [place] 1.010 (1.003-1.030) 05/22/20 09:32 Urine Protein >500 mg/dL (Negative) 05/22/20 09:32 Urine Glucose (UA) Neg mg/dL (Negative) 05/22/20 09:32 Urine Ketones Neg mg/dL (Negative) 05/22/20 09:32 Urine Blood Sm (Negative) 05/22/20 09:32 Urine Nitrite Neg (Negative) 05/22/20 09:32 Urine Bilirubin Neg (Negative) 05/22/20 09:32 Urine Urobilinogen < 2.0 mg/dL (<2.0) 05/22/20 09:32 Ur Leukocyte Esterase Mod (Negative) 05/22/20 09:32 Urine WBC (Auto) > 182.0 /HPF (0.0-6.0) H 05/22/20 09:32 Urine RBC (Auto) 9.0 /HPF (0.0-6.0) 05/22/20 09:32 U Epithel Cells (Auto) 1.0 /HPF (0-13.0) 05/22/20 09:32 Urine WBC Clumps 2+ /HPF 05/22/20 09:32 Urine Mucus Few /HPF 05/22/20 09:32 Urine Creatinine 48.1 mg/dL (0.1-20.0) H 05/22/20 09:49 Urine Sodium 130 mmol/L 05/22/20 09:49 Blood Type A POSITIVE 05/23/20 06:10 Antibody Screen Negative 05/23/20 06:10 Crossmatch See Detail 05/23/20 06:10 Microbiology: Microbiology 05/22/20 09:10 Peripheral/Venous Blood Culture - Final NO GROWTH AFTER 5 DAYS 05/22/20 09:10 Peripheral/Venous Blood Culture - Final NO GROWTH AFTER 5 DAYS - Diagnostic Impressions Diagnostic Impressions: Echocardiogram 05/22/20 14:25 Transthoracic Echocardiogram Indication: Cardiomyopathy BP: 97/48 HR: 84 Conclusions *Global left ventricular systolic function is normal. *The estimated ejection fraction is 55-60%. *There is no evidence of aortic regurgitation. *There is no evidence of mitral regurgitation. *There is mild tricuspid regurgitation. *The right ventricular systolic pressure is calculated at 31 mmHg. Findings Left Ventricle: The left ventricular chamber size is normal. Global left ventricular wall motion and contractility are within normal limits. Global left ventricular systolic function is normal. The estimated ejection fraction is 55-60%. Abnormal left ventricular diastolic filling is observed, consistent with impaired relaxation. Right Ventricle: The right ventricle is not well visualized. Aortic Valve: Mild aortic leaflet calcification is visualized. There is no evidence of aortic regurgitation. Mitral Valve: The mitral valve leaflets are mildly thickened. There is no evidence of mitral regurgitation. Tricuspid Valve: The tricuspid valve leaflets are normal. There is mild tricuspid regurgitation. The right ventricular systolic pressure is calculated at 31 mmHg. Pulmonic Valve: The pulmonic valve is not well visualized. Pericardium: There is no pericardial effusion. Aorta: The aorta appears normal. Venous: The inferior vena cava is not visualized. Measurements Chambers 2D Name Value Normal Range IVSd (2D) 0.93 cm (0.6 - 1.1) LVPWd (2D) 0.88 cm (0.6 - 1.1) LVIDd (2D) 4.14 cm (3.7 - 5.6) LVIDs (2D) 2.84 cm (2 - 3.8) LV FS (2D) 31.49 % - EF Teichholz (2D) 59.83 % - Ao root diameter (2D) 2.95 cm (2 - 3.7) Volumes/Mass Name Value Normal Range LA ESV SP 4CH (A/L) 18.27 ml - LA ESV SP 2CH (A/L) 16.69 ml - LA ESV BP (A/L) 20.49 ml - LA ESV BP (A/L) index 9.95 ml/m2 - LA ESV SP 4CH (MOD) 16.89 ml - LA ESV SP 2CH (MOD) 16.63 ml - LA ESV BP (MOD) 19.39 ml - LA ESV BP (MOD) index 9.41 ml/m2 - Diastolic/Systolic Function Name Value Normal Range MV E-wave Vmax 0.69 m/sec - MV deceleration time 231.55 msec - MV A-wave Vmax 0.85 m/sec - MV E:A ratio 0.81 ratio - Aortic Valve Name Value Normal Range AV Vmax 1.43 m/sec - AV VTI 26.37 cm - AV peak gradient 8.16 mmHg - AV mean gradient 5.15 mmHg - LVOT diameter 2.39 cm - LVOT Vmax 0.94 m/sec - LVOT VTI 17.92 cm - LVOT peak gradient 3.5 mmHg - LVOT mean gradient 2.07 mmHg - SV LVOT 80.13 ml - NURIA (continuity Vmax) 2.93 cm2 - NURIA (continuity VTI) 3.04 cm2 - Tricuspid Valve Name Value Normal Range TR Vmax 2.63 m/sec - TR peak gradient 28 mmHg - RAP 3 mmHg - RVSP 31 mmHg - Pulmonic Valve/Qp:Qs Name Value Normal Range PV acceleration time 95.15 msec - Engel/IV: Voiding Method Indwelling Catheter Active Medications - Current Medications Current Medications: Generic Name Dose Route Start Last Admin Trade Name Freq PRN Reason Stop Dose Admin Acetaminophen 650 mg 05/22/20 12:31 Acetaminophen 325 Mg Tab PO Q6H PRN Pain, Mild (1-3) Albuterol 2.5 mg 05/22/20 12:14 Albuterol 2.5 Mg/3 Ml Nebu IH Q3HRT PRN Shortness Of Breath Aspirin 81 mg 05/23/20 10:00 05/27/20 09:00 Aspirin 81 Mg Tab Chew PO 81 mg QDAY VANE Administration Atorvastatin Calcium 80 mg 05/22/20 22:00 05/26/20 21:19 Atorvastatin 40 Mg Tab PO 80 mg QHS VANE Administration Clopidogrel Bisulfate 75 mg 05/23/20 10:00 05/27/20 08:59 Clopidogrel 75 Mg Tab PO 75 mg QDAY VANE Administration Dextrose 25 ml 05/25/20 00:13 05/25/20 23:59 Dextrose 50% In Water (25gm) 50 Ml Syringe IV 25 ml Q30MIN PRN Administration Hypoglycemia Protocol Heparin Sodium (Porcine) 5,000 unit 05/22/20 22:00 05/27/20 09:00 Heparin 5,000 Unit/1 Ml Vial SUB-Q 5,000 unit Q12HR VANE Administration Hydromorphone HCl 0.25 mg 05/22/20 12:31 05/26/20 01:20 Hydromorphone 1 Mg/1 Ml Inj IV 0.25 mg Q4H PRN Administration Pain, Moderate (4-6) Cefepime HCl 2 gm in 100 mls @ 200 mls/hr 05/25/20 08:00 05/27/20 08:49 Cefepime/Ns 2 Gm/100 Ml IV 05/28/20 23:59 200 mls/hr Q8H VANE Administration Protocol Dextrose 1,000 mls @ 75 mls/hr 05/26/20 01:00 05/27/20 03:17 D5w IV 75 mls/hr DIRECT VANE Administration Pantoprazole Sodium 40 mg 05/22/20 22:00 05/27/20 08:59 Pantoprazole 40 Mg Tab PO 40 mg BID VANE Administration Potassium Chloride 40 meq 05/27/20 11:00 05/27/20 11:27 Potassium Chloride Er 20 Meq Tab PO 05/27/20 15:00 40 meq ONCE VANE Administration Sodium Chloride 10 ml 05/22/20 22:00 05/27/20 09:31 Sodium Chloride 0.9% 10 Ml Flush Syringe IV 10 ml BID VANE Administration Sodium Chloride 10 ml 05/22/20 12:14 Sodium Chloride 0.9% 10 Ml Flush Syringe IV PRN PRN LINE FLUSH Nutrition/Malnutrition Assess - Dietary Evaluation Nutrition/Malnutrition Findings: Nutrition Notes Start: 05/27/20 11:22 Freq: Status: Active Protocol: Document 05/27/20 11:22 AT (Rec: 05/27/20 11:36 AT [id number]) Co-Sign 05/27/20 11:22 CW Nutrition Notes Need for Assessment generated from: MD Order,LOS Current Diagnosis Decubitus(Pressure Ulcer), Hypertension Other Pertinent Diagnosis Metabolic Encephalopathy, s/p Cholecystostomy Current Diet Cardiac Diet Labs/Tests Na 135 K 3.4 Pertinent Medications D5W at 75 mL/hr K-Dur Height 5 ft 9 in Weight 81.5 kg [place] Body Weight (kg) 72.72 BMI 26.5 Weight Status Overweight Subjective/Other Information Consult for malnutrition. Visited pt at bedside for full assessment, but pt was slightly confused and newspaper writer was unable to obtain nutrition history. Farmworker Rice observed prominent brow bone, which may be signs of orbital wasting. Per RN, pt is confused and consumed negligible amounts of breakfast with a few sips of orange juice. Per chart, pt consuming 33% of meals. Percent of energy/protein needs met: 40%/30% Burn Absent Trauma Absent GI Symptoms None Skin Integrity/Comment Redness and Stage II Pressure Ulcer Current % PO Negligible Minimum of two criteria Yes Body Fat Depletion Mild depletion (non-severe) Fluid Accumulation Mild (non-severe) Reduced Chemical Laboratory Assistant Strength N/A (non-severe) #2 Nutrition Diagnosis Increased nutrient needs ( specify in comment below) Comments: protein Etiology Stage II Pressure Ulcer As Evidenced by Signs and Symptoms need for wound healing #1 Nutrition Diagnosis Malnutrition Etiology acute illness, cholecystitis As Evidenced by Signs and Symptoms mild fat depletion, non- pitting edema, and reduced automotive service porter strength Is patient on ventilator? No Is Patient Ambulatory and/or Out of Bed No REE-([facility]-confined to bed) 1878.288 Kcal/Kg value to use for calculation 26 Approximate Energy Requirements Using 2119 kcal/Kg Calculation Used for Recommendations Kcal/kg Additional Notes PRO needs: 98-122g (1.2-1.5 g/ kg) Fluid needs: 1 mL/kcal or per Nutrition Intervention Change Diet Order: Continue Cardiac Diet Add Supplement/Snack (indicate name/kcal Ensure Enlive BID /protein ) Provides kCal: 700 Provides Protein (gm) 40 Goal #1 Wound healing Goal #2 Meet at least 80% of estimated energy and protein needs via diet and ONS Anticipated Discharge Needs: Cardiac Diet Follow-Up By: 05/31/20 Additional Comments F/U for intakes and ONS tolerance
--- NOTE | 2020-05-27 13:33 | Progress Note ---
Assessment and Plan Septic shock Metabolic Acidosis Acute Toxic metabolic encephalopathy Acute renal failure UTI (urinary tract infection) Acute Cystitis - continue antiinfective's per ID (cefepime 2 gms IV q8h X 7 days) - will need ouitpatient surgery f/up - fall precautions - continue care as below otherwise; - continue empiric Cefepime (trend lactate, procalcitonin to aid clinical decision making) - continue accuchecks with glycemic control per SSI for target blood glucose of < 180 mg/dL; avoid hypoglycemia - continue to wean supplemental oxygen for target O2 sat's > 92% acutely - aspiration precautions - prn bronchodilators with pulmonary hygiene per RT - avoid nephrotoxins, renally dose all medications - avoid benzodiazepine's, reduce the possibility of delirium - prn analgesia per pain score - Maintenance of sleep-wake cycle, avoid delirium - aspiration precautions - G.I. & VTE prophylaxis - PT/OT/ROM exercises - mobility protocols for pressure ulcer prophylaxis - Monitor hemodynamics closely - continue other care per attending / other consultants - discharge planning ongoing concurrently .... Re-evaluate in am & prn Subjective Date of service: 05/27/20 Principal diagnosis: Septic shock; Metabolic Acidosis; Ac, Toxic metabolic encephalopathy; EBENEZER Interval history: Patient is seen today for: Septic shock; Metabolic Acidosis; Acute Toxic metabolic encephalopathy; Acute renal failure; UTI (urinary tract infection) Seen and examined at bedside; 24hour events reviewed; nursing and respiratory care staff consulted; no adverse overnight events reported to me; resting peac efully in bed; asleep; no new issues today Objective Vital Signs - 12hr 05/27/20 05/27/20 05/27/20 07:10 08:00 13:00 Temperature 98.5 F Pulse Rate 76 72 Pulse Rate [ 76 From Monitor] Respiratory 18 18 Rate Blood Pressure 110/60 O2 Sat by Pulse 94 Oximetry Constitutional: no acute distress, other (elderly looking male with normal respiratory effort at rest) Eyes: non-icteric ENT: oropharynx moist Neck: supple, no lymphadenopathy, no JVD Effort: normal Ascultation: Bilateral: clear Percussion: Bilateral: not dull Cardiovascular: regular rate and rhythm Gastrointestinal: normoactive bowel sounds, soft, tender (mild, LLQ, RUQ), non- distended (protuberant'), other (RUQ J-P drain) Integumentary: normal Extremities: no cyanosis, no edema, pink and warm, pulses normal Neurologic: non-focal exam (grossly), pupils equal and round, CN II-XII normal, other (slow to respond) Psychiatric: other (flat affect) CBC and BMP: 05/26/20 04:16 05/27/20 06:23 ABG, PT/INR, D-dimer: PT/INR, D-dimer PT 15.5 Sec. (12.2-14.9) H 05/22/20 09:10 INR 1.25 (0.87-1.13) H 05/22/20 09:10 Abnormal lab findings: Abnormal Labs 05/22/20 05/22/20 05/22/20 09:10 09:10 09:10 WBC 17.9 H RBC 3.60 L Hgb 8.7 L Hct 26.8 L MCV 74 L MCH 24 L RDW 24.0 H Plt Count 621 H Lymph % (Auto) Upson # (Auto) Seg Neutrophils % Seg Neuts % (Manual) 85.0 H Lymphocytes % (Manual) 5.0 L Monocytes % (Manual) 8.0 H Eosinophils % (Manual) Seg Neutrophils # Seg Neutrophils # Man 15.2 H Lymphocytes # (Manual) 0.9 L Monocytes # (Manual) 1.4 H Eosinophils # (Manual) PT INR APTT Sodium Potassium Chloride Carbon Dioxide BUN Creatinine Glucose POC Glucose Lactic Acid 3.30 H* Calcium Magnesium Direct Bilirubin Alkaline Phosphatase Troponin T 0.271 H* NT-Pro-B Natriuret Pep Total Protein Albumin HDL Cholesterol 39 L Urine pH Urine WBC (Auto) Urine Creatinine Crossmatch 05/22/20 05/22/20 05/22/20 09:10 09:10 09:32 WBC RBC Hgb Hct MCV MCH RDW Plt Count Lymph % (Auto) Upson # (Auto) Seg Neutrophils % Seg Neuts % (Manual) Lymphocytes % (Manual) Monocytes % (Manual) Eosinophils % (Manual) Seg Neutrophils # Seg Neutrophils # Man Lymphocytes # (Manual) Monocytes # (Manual) Eosinophils # (Manual) PT 15.5 H INR 1.25 H APTT 47.6 H Sodium 136 L Potassium Chloride 97.2 L Carbon Dioxide BUN 36 H Creatinine 3.8 H Glucose 133 H POC Glucose Lactic Acid Calcium 7.8 L Magnesium Direct Bilirubin 0.3 H Alkaline Phosphatase 248 H Troponin T NT-Pro-B Natriuret Pep 1448 H Total Protein Albumin 2.8 L HDL Cholesterol Urine pH 8.0 H Urine WBC (Auto) > 182.0 H Urine Creatinine Crossmatch 05/22/20 05/22/20 05/22/20 09:49 11:42 19:48 WBC RBC Hgb Hct MCV MCH RDW Plt Count Lymph % (Auto) Upson # (Auto) Seg Neutrophils % Seg Neuts % (Manual) Lymphocytes % (Manual) Monocytes % (Manual) Eosinophils % (Manual) Seg Neutrophils # Seg Neutrophils # Man Lymphocytes # (Manual) Monocytes # (Manual) Eosinophils # (Manual) PT INR APTT Sodium Potassium Chloride Carbon Dioxide BUN Creatinine Glucose POC Glucose Lactic Acid 3.70 H* 2.10 H* Calcium Magnesium Direct Bilirubin Alkaline Phosphatase Troponin T NT-Pro-B Natriuret Pep Total Protein Albumin HDL Cholesterol Urine pH Urine WBC (Auto) Urine Creatinine 48.1 H Crossmatch 05/22/20 05/23/20 05/23/20 23:27 05:05 05:05 WBC 20.3 H RBC 2.73 L Hgb 6.6 L Hct 20.8 L D MCV 76 L MCH 24 L RDW 23.9 H Plt Count 546 H Lymph % (Auto) 11.5 L Upson # (Auto) 1.2 H Seg Neutrophils % 81.5 H Seg Neuts % (Manual) Lymphocytes % (Manual) Monocytes % (Manual) Eosinophils % (Manual) Seg Neutrophils # 16.5 H Seg Neutrophils # Man Lymphocytes # (Manual) Monocytes # (Manual) Eosinophils # (Manual) PT INR APTT Sodium Potassium Chloride 112.5 H Carbon Dioxide 20 L BUN 26 H Creatinine 1.8 H D Glucose 135 H POC Glucose 124 H Lactic Acid Calcium 6.8 L Magnesium Direct Bilirubin Alkaline Phosphatase Troponin T NT-Pro-B Natriuret Pep Total Protein Albumin HDL Cholesterol Urine pH Urine WBC (Auto) Urine Creatinine Crossmatch 05/23/20 05/23/20 05/23/20 05:38 06:10 11:33 WBC RBC Hgb Hct MCV MCH RDW Plt Count Lymph % (Auto) Upson # (Auto) Seg Neutrophils % Seg Neuts % (Manual) Lymphocytes % (Manual) Monocytes % (Manual) Eosinophils % (Manual) Seg Neutrophils # Seg Neutrophils # Man Lymphocytes # (Manual) Monocytes # (Manual) Eosinophils # (Manual) PT INR APTT Sodium Potassium Chloride Carbon Dioxide BUN Creatinine Glucose POC Glucose 112 H 128 H Lactic Acid Calcium Magnesium Direct Bilirubin Alkaline Phosphatase Troponin T NT-Pro-B Natriuret Pep Total Protein Albumin HDL Cholesterol Urine pH Urine WBC (Auto) Urine Creatinine Crossmatch See Detail 05/23/20 05/23/20 05/23/20 14:45 17:49 23:34 WBC RBC Hgb 8.4 L Hct 26.4 L MCV MCH RDW Plt Count Lymph % (Auto) Upson # (Auto) Seg Neutrophils % Seg Neuts % (Manual) Lymphocytes % (Manual) Monocytes % (Manual) Eosinophils % (Manual) Seg Neutrophils # Seg Neutrophils # Man Lymphocytes # (Manual) Monocytes # (Manual) Eosinophils # (Manual) PT INR APTT Sodium Potassium Chloride Carbon Dioxide BUN Creatinine Glucose POC Glucose 112 H 116 H Lactic Acid Calcium Magnesium Direct Bilirubin Alkaline Phosphatase Troponin T NT-Pro-B Natriuret Pep Total Protein Albumin HDL Cholesterol Urine pH Urine WBC (Auto) Urine Creatinine Crossmatch 05/24/20 05/24/20 05/25/20 05:45 05:45 05:00 WBC 18.4 H RBC 3.35 L Hgb 8.6 L Hct 26.5 L MCV 79 L MCH 26 L RDW 23.9 H Plt Count Lymph % (Auto) Upson # (Auto) Seg Neutrophils % Seg Neuts % (Manual) 81.0 H Lymphocytes % (Manual) 12.0 L Monocytes % (Manual) Eosinophils % (Manual) Seg Neutrophils # Seg Neutrophils # Man 14.9 H Lymphocytes # (Manual) Monocytes # (Manual) 1.3 H Eosinophils # (Manual) PT INR APTT Sodium Potassium 3.1 L Chloride 109.5 H Carbon Dioxide BUN Creatinine Glucose 111 H POC Glucose Lactic Acid Calcium 6.8 L 7.2 L Magnesium 1.00 L Direct Bilirubin Alkaline Phosphatase Troponin T NT-Pro-B Natriuret Pep Total Protein Albumin HDL Cholesterol Urine pH Urine WBC (Auto) Urine Creatinine Crossmatch 05/25/20 05/25/20 05/25/20 09:34 11:31 18:25 WBC 12.7 H RBC 3.14 L Hgb 8.0 L Hct 24.6 L MCV 78 L MCH 25 L RDW 25.0 H Plt Count Lymph % (Auto) Upson # (Auto) Seg Neutrophils % Seg Neuts % (Manual) 94.0 H Lymphocytes % (Manual) 3.0 L Monocytes % (Manual) Eosinophils % (Manual) Seg Neutrophils # Seg Neutrophils # Man 11.9 H Lymphocytes # (Manual) 0.4 L Monocytes # (Manual) Eosinophils # (Manual) PT INR APTT Sodium Potassium Chloride Carbon Dioxide BUN Creatinine Glucose POC Glucose 63 L 57 L Lactic Acid Calcium Magnesium Direct Bilirubin Alkaline Phosphatase Troponin T NT-Pro-B Natriuret Pep Total Protein Albumin HDL Cholesterol Urine pH Urine WBC (Auto) Urine Creatinine Crossmatch 05/25/20 05/26/20 05/26/20 23:44 04:16 04:16 WBC RBC 3.07 L Hgb 8.0 L Hct 24.2 L MCV 79 L MCH 26 L RDW 24.8 H Plt Count Lymph % (Auto) Upson # (Auto) Seg Neutrophils % Seg Neuts % (Manual) 85.0 H Lymphocytes % (Manual) 8.0 L Monocytes % (Manual) Eosinophils % (Manual) 5.0 H Seg Neutrophils # Seg Neutrophils # Man 7.9 H Lymphocytes # (Manual) 0.7 L Monocytes # (Manual) Eosinophils # (Manual) 0.5 H PT INR APTT Sodium Potassium 3.4 L Chloride 108.6 H Carbon Dioxide BUN Creatinine 0.7 L Glucose 101 H POC Glucose 52 L Lactic Acid Calcium 7.7 L Magnesium Direct Bilirubin Alkaline Phosphatase Troponin T NT-Pro-B Natriuret Pep Total Protein Albumin HDL Cholesterol Urine pH Urine WBC (Auto) Urine Creatinine Crossmatch 05/26/20 05/27/20 05/27/20 12:41 00:45 06:23 WBC RBC Hgb Hct MCV MCH RDW Plt Count Lymph % (Auto) Upson # (Auto) Seg Neutrophils % Seg Neuts % (Manual) Lymphocytes % (Manual) Monocytes % (Manual) Eosinophils % (Manual) Seg Neutrophils # Seg Neutrophils # Man Lymphocytes # (Manual) Monocytes # (Manual) Eosinophils # (Manual) PT INR APTT Sodium 135 L Potassium 3.4 L Chloride Carbon Dioxide BUN Creatinine Glucose POC Glucose 64 L Lactic Acid Calcium 7.4 L Magnesium Direct Bilirubin Alkaline Phosphatase 566 H Troponin T NT-Pro-B Natriuret Pep Total Protein 5.3 L D Albumin 1.9 L HDL Cholesterol Urine pH Urine WBC (Auto) Urine Creatinine Crossmatch Allied health notes reviewed: nursing
--- NOTE | 2020-05-27 14:17 | Progress Note ---
Assessment and Plan Cultures: Blood culture no growth so far Urine culture no growth so far A/P: 69-year-old man past medical history CAD, CVA admitted with here from group home. #Acute cystitis: With significant pyuria, seen on CT scan. Cultures no growth so far, with normal skin merry only #EBENEZER: Resolved #Cholecystitis: Improved inflammation seen on CT, cholecystostomy tube in place. Recs: -cefepime 2 g every 8 hours complete 7 days. -If discharging, would send with levofloxacin 750 mg every 24 hours to complete the above course. -Continue to follow white count. Thank you for the consult, we will sign off. Please call questions. Thuan Peguero MD [facility] O: [phone] F: [phone] Subjective Date of service: 05/27/20 Principal diagnosis: Septic shock; Metabolic Acidosis; Ac, Toxic metabolic encephalopathy; EBENEZER Interval history: Afebrile, improved white count. No other acute changes. Cultures all negative. Objective - Exam Narrative Exam: Physical Exam: Constitutional: Alert, cooperative. No acute distress Head, Ears, Nose: Normocephalic, atraumatic. Eyes: Conjunctivae/corneas clear. No icterus. No ptosis. Neck: Supple, no meningeal signs Oral: dentition fair, no thrush Cardiovascular: S1, S2 normal. Respiratory: Good air entry, clear to auscultation bilaterally GI: Soft, non-tender; bowel sounds normal. No peritoneal signs. +cholecystostomy tube Musculoskeletal: Bilateral foot wounds, left with healed necrotic ulcer, appears dry, no pus. Skin: No rash or abscess Hem/Lymphatic: No palpable cervical or supraclavicular nodes. No lymphangitis Psych: Mood ok. Affect normal Neurological: Awake, alert, oriented. No gross abnormality - Constitutional Vitals: Vital Signs Temp Pulse Resp BP Pulse Ox 98.5 F 76 18 110/60 96 05/27/20 08:00 05/27/20 13:00 05/27/20 13:00 05/27/20 08:00 05/27/20 10:00 Temperature -Last 24 Hours Temperature 98.5 F Temperature 97.4 F Temperature 98.2 F Temperature 97.6 F - Labs CBC & Chem 7: 05/26/20 04:16 05/27/20 06:23 Labs: Abnormal lab results 05/26/20 05/27/20 05/27/20 Range/Units 12:41 00:45 06:23 Sodium 135 L (137-145) mmol/L Potassium 3.4 L (3.6-5.0) mmol/L POC Glucose 64 L (70-105) mg/dL Calcium 7.4 L (8.4-10.2) mg/dL Alkaline Phosphatase 566 H (35-129) units/L Total Protein 5.3 L D (6.3-8.2) g/dL Albumin 1.9 L (3.9-5) g/dL
[2020-05-27] MEDS: HYDROmorphone 1 MG/1 ML INJ IV PRN (23:29)
[2020-05-28] MEDS: DEXTROSE 5% IN WATER 1,000 ML IV SCH ×2 (05:18→17:10)
[2020-05-28 05:37] LABS: Blood Urea Nitrogen 10 mg/dL (9-20); Calcium 7.7 mg/dL (8.4-10.2); Hemolysis Index 3
[2020-05-28 05:52] LABS: BUN/Creatinine Ratio 14
[2020-05-28] MEDS: CLOPIDOGREL 75 MG TAB PO SCH (10:15)
[2020-05-28] MEDS: ASPIRIN 81 MG TAB CHEW PO SCH (10:15)
[2020-05-28] MEDS: HEPARIN 5,000 UNIT/1 ML VIAL SUB-Q SCH ×2 (10:15→21:49)
[2020-05-28] MEDS: PANTOPRAZOLE 40 MG TAB PO SCH ×2 (10:15→21:48)
--- NOTE | 2020-05-28 10:16 | Progress Note ---
Assessment and Plan (1) Septic shock Current Visit: Yes Status: Acute Plan to address problem: Sepsis protocol: CBC, CMP, chest x-ray, urinalysis, IV antibiotic therapy, blood cultures., IV pressor support, maintain mean arterial pressure greater than or equal to 65, monitor urine output every shift, serial lactic acid level. Critical care team consulted. The high probability of a clinically significant, sudden or life threatening deterioration of the [neuro, renal, infectious disease] system(s) required my full and direct attention, intervention and personal management. The aggregate critical care time was [65] minutes. This time is in addition to time spent performing reported procedures but includes the following: Improved awaiting placement. [x] Data Review and interpretation [x] Patient assessment and monitoring of vital signs [x] Documentation [x] Medication orders and management (2) Acidosis Current Visit: Yes Status: Acute Plan to address problem: IV fluid resuscitation therapy, BMP, repeat BMP in a.m., IV bicarbonate therapy x1. Serial lactic acid level. (3) Toxic metabolic encephalopathy Current Visit: Yes Status: Acute Plan to address problem: Supportive care, treat sepsis, IV fluid resuscitation therapy, neuro check, seizure precautions. Resolved currently awaiting placement. (4) Acute renal failure Current Visit: Yes Status: Acute Qualifiers: Acute renal failure type: with acute tubular necrosis Qualified Code(s): N17.0 - Acute kidney failure with tubular necrosis Plan to address problem: IV fluid resuscitation therapy, nephrology team consulted in ED, urine electrol ytes, supportive care. IV fluid resuscitation therapy. (5) UTI (urinary tract infection) Current Visit: Yes Status: Acute Qualifiers: Encounter type: initial encounter Plan to address problem: Urinalysis, CBC, IV antibiotic therapy, supportive care, blood cultures. (6) DVT prophylaxis Current Visit: Yes Status: Acute Plan to address problem: SCD to bilateral lower extremities while in bed, prophylactic anticoagulation. (7) Advance care planning Current Visit: Yes Status: Acute Plan to address problem: Disease education conducted, patient is full code, prognosis discussed, di agnosis discussed, care plan discussed, +30 minutes. Subjective Date of service: 05/28/20 Principal diagnosis: Septic shock; Metabolic Acidosis; Ac, Toxic metabolic encephalopathy; EBENEZER Interval history: 05/23/2020 -Septic shock likely due to UTI, patient is on IV cefepime, IV fluid and pressor support. Critical care consulted -Acute renal failure, improved with IV fluids, nephrology consulted 05/24/2020 -Admitted for septic shock due to UTI, patient is on IV cefepime, IV fluids, pressor support, ID consulted. -Acute renal failure IV fluids and nephrology consult -Patient is saturating 100% on room air -Patient was alert 05/25/2020 -Patient is on IV cefepime and ID increase the dose. -Acute renal failure is improving -Patient had history of cholecystostomy tube placement and was seen by general surgery and order imaging study. -Patient is still on pressors for low blood pressure 05/27/2020 -Patient was admitted for septic shock and he is doing well. Continue with cefepime while he is here and can be discharged with po Levaquin to finish a total of 7 days course of antibiotics. He was evaluated by general surgery and imaging was done and no further work-up is needed. GI also saw the patient. Patient is stable for discharge Case management is working for placement. Patient's family does not want him to go back to the facility where he came from. 05/28/2020 patient is alert today able to make needs known at this particular time. Recently admitted for septic shock. Currently treated with cefepime while in house. Awaiting placement will change to Levaquin to complete 6 more days of antibiotics. Stable for discharge awaiting placement Case management. Objective - Constitutional Vitals: Vital Signs - 12hr 05/28/20 05/28/20 05/28/20 00:00 00:24 05:09 Temperature 98.2 F 98.0 F Pulse Rate 76 77 81 Respiratory 18 18 Rate Blood Pressure 142/69 135/66 O2 Sat by Pulse 95 96 Oximetry 05/28/20 09:06 Temperature 98.3 F Pulse Rate 79 Respiratory Rate Blood Pressure 132/73 O2 Sat by Pulse 98 Oximetry General appearance: Present: no acute distress, well-nourished - EENT Eyes: PERRL, EOM intact ENT: hearing intact, clear oral mucosa Ears: bilateral: normal - Neck Neck: supple, normal ROM - Respiratory Respiratory effort: normal Respiratory: bilateral: CTA, negative: diminished (Poor respiratory effort.) - Breasts Breasts: normal - Cardiovascular Rhythm: regular Heart Sounds: Present: S1 & S2. Absent: gallop, rub Extremities: pulses intact, No edema, normal color, Full ROM Extremity abnormal: other (Right-sided weakness. Chronic.) - Gastrointestinal General gastrointestinal: Present: soft, non-tender, non-distended, normal bowel sounds - Genitourinary Male genitourinary: normal - Integumentary Integumentary: clear, warm, dry - Musculoskeletal Musculoskeletal: 1, strength equal bilaterally - Neurologic Neurologic: moves all extremities - Psychiatric Psychiatric: memory intact, appropriate mood/affect, intact judgment & insight - Labs CBC & Chem 7: 05/26/20 04:16 05/28/20 04:35 Labs: Abnormal lab results 05/28/20 Range/Units 04:35 Creatinine 0.7 L (0.8-1.3) mg/dL Calcium 7.7 L (8.4-10.2) mg/dL HEART Score - HEART Score Troponin: Troponin T 0.271 ng/mL (0.00-0.029) H* 05/22/20 09:10
[2020-05-28] MEDS: CEFEPIME/NS 2 GM/100 ML 2 GM/100 ML BAG IV SCH ×2 (10:17→16:00)
--- NOTE | 2020-05-28 14:20 | Progress Note ---
Assessment and Plan Septic shock Metabolic Acidosis Acute Toxic metabolic encephalopathy Acute renal failure UTI (urinary tract infection) Acute Cystitis - continue antiinfective's per ID (cefepime 2 gms IV q8h X 7 days) - will need ouitpatient surgery f/up - fall precautions - continue care as below otherwise; - continue empiric Cefepime (trend lactate, procalcitonin to aid clinical decision making) - continue accuchecks with glycemic control per SSI for target blood glucose of < 180 mg/dL; avoid hypoglycemia - continue to wean supplemental oxygen for target O2 sat's > 92% acutely - aspiration precautions - prn bronchodilators with pulmonary hygiene per RT - avoid nephrotoxins, renally dose all medications - avoid benzodiazepine's, reduce the possibility of delirium - prn analgesia per pain score - Maintenance of sleep-wake cycle, avoid delirium - aspiration precautions - G.I. & VTE prophylaxis - PT/OT/ROM exercises - mobility protocols for pressure ulcer prophylaxis - Monitor hemodynamics closely - continue other care per attending / other consultants - discharge planning ongoing concurrently .... Re-evaluate in am & prn Subjective Date of service: 05/28/20 Principal diagnosis: Septic shock; Metabolic Acidosis; Ac, Toxic metabolic encephalopathy; EBENEZER Interval history: Patient is seen today for: Septic shock; Metabolic Acidosis; Acute Toxic metabolic encephalopathy; Acute renal failure; UTI (urinary tract infection) Seen and examined at bedside; 24hour events reviewed; nursing and respiratory care staff consulted; no adverse overnight events reported to me; resting peac efully in bed; continues on sepsis protocol; on Cefepime; no new issues respiratory-goodwin Objective Vital Signs - 12hr 05/28/20 05/28/20 05:09 09:06 Temperature 98.0 F 98.3 F Pulse Rate 81 79 Respiratory 18 Rate Blood Pressure 135/66 132/73 O2 Sat by Pulse 96 98 Oximetry Constitutional: no acute distress, other (elderly looking male with normal respiratory effort at rest) Eyes: non-icteric ENT: oropharynx moist Neck: supple, no lymphadenopathy, no JVD Effort: normal Ascultation: Bilateral: clear Percussion: Bilateral: not dull Cardiovascular: regular rate and rhythm Gastrointestinal: normoactive bowel sounds, soft, tender (mild, LLQ, RUQ), non- distended (protuberant'), other (RUQ J-P drain) Integumentary: normal Extremities: no cyanosis, no edema, pink and warm, pulses normal Neurologic: non-focal exam (grossly), pupils equal and round, CN II-XII normal, other (slow to respond) Psychiatric: other (flat affect) CBC and BMP: 05/26/20 04:16 05/28/20 04:35 ABG, PT/INR, D-dimer: PT/INR, D-dimer PT 15.5 Sec. (12.2-14.9) H 05/22/20 09:10 INR 1.25 (0.87-1.13) H 05/22/20 09:10 Abnormal lab findings: Abnormal Labs 05/22/20 05/22/20 05/22/20 09:10 09:10 09:10 WBC 17.9 H RBC 3.60 L Hgb 8.7 L Hct 26.8 L MCV 74 L MCH 24 L RDW 24.0 H Plt Count 621 H Lymph % (Auto) Gordon # (Auto) Seg Neutrophils % Seg Neuts % (Manual) 85.0 H Lymphocytes % (Manual) 5.0 L Monocytes % (Manual) 8.0 H Eosinophils % (Manual) Seg Neutrophils # Seg Neutrophils # Man 15.2 H Lymphocytes # (Manual) 0.9 L Monocytes # (Manual) 1.4 H Eosinophils # (Manual) PT INR APTT Sodium Potassium Chloride Carbon Dioxide BUN Creatinine Glucose POC Glucose Lactic Acid 3.30 H* Calcium Magnesium Direct Bilirubin Alkaline Phosphatase Troponin T 0.271 H* NT-Pro-B Natriuret Pep Total Protein Albumin HDL Cholesterol 39 L Urine pH Urine WBC (Auto) Urine Creatinine Crossmatch 05/22/20 05/22/20 05/22/20 09:10 09:10 09:32 WBC RBC Hgb Hct MCV MCH RDW Plt Count Lymph % (Auto) Gordon # (Auto) Seg Neutrophils % Seg Neuts % (Manual) Lymphocytes % (Manual) Monocytes % (Manual) Eosinophils % (Manual) Seg Neutrophils # Seg Neutrophils # Man Lymphocytes # (Manual) Monocytes # (Manual) Eosinophils # (Manual) PT 15.5 H INR 1.25 H APTT 47.6 H Sodium 136 L Potassium Chloride 97.2 L Carbon Dioxide BUN 36 H Creatinine 3.8 H Glucose 133 H POC Glucose Lactic Acid Calcium 7.8 L Magnesium Direct Bilirubin 0.3 H Alkaline Phosphatase 248 H Troponin T NT-Pro-B Natriuret Pep 1448 H Total Protein Albumin 2.8 L HDL Cholesterol Urine pH 8.0 H Urine WBC (Auto) > 182.0 H Urine Creatinine Crossmatch 05/22/20 05/22/20 05/22/20 09:49 11:42 19:48 WBC RBC Hgb Hct MCV MCH RDW Plt Count Lymph % (Auto) Gordon # (Auto) Seg Neutrophils % Seg Neuts % (Manual) Lymphocytes % (Manual) Monocytes % (Manual) Eosinophils % (Manual) Seg Neutrophils # Seg Neutrophils # Man Lymphocytes # (Manual) Monocytes # (Manual) Eosinophils # (Manual) PT INR APTT Sodium Potassium Chloride Carbon Dioxide BUN Creatinine Glucose POC Glucose Lactic Acid 3.70 H* 2.10 H* Calcium Magnesium Direct Bilirubin Alkaline Phosphatase Troponin T NT-Pro-B Natriuret Pep Total Protein Albumin HDL Cholesterol Urine pH Urine WBC (Auto) Urine Creatinine 48.1 H Crossmatch 05/22/20 05/23/20 05/23/20 23:27 05:05 05:05 WBC 20.3 H RBC 2.73 L Hgb 6.6 L Hct 20.8 L D MCV 76 L MCH 24 L RDW 23.9 H Plt Count 546 H Lymph % (Auto) 11.5 L Gordon # (Auto) 1.2 H Seg Neutrophils % 81.5 H Seg Neuts % (Manual) Lymphocytes % (Manual) Monocytes % (Manual) Eosinophils % (Manual) Seg Neutrophils # 16.5 H Seg Neutrophils # Man Lymphocytes # (Manual) Monocytes # (Manual) Eosinophils # (Manual) PT INR APTT Sodium Potassium Chloride 112.5 H Carbon Dioxide 20 L BUN 26 H Creatinine 1.8 H D Glucose 135 H POC Glucose 124 H Lactic Acid Calcium 6.8 L Magnesium Direct Bilirubin Alkaline Phosphatase Troponin T NT-Pro-B Natriuret Pep Total Protein Albumin HDL Cholesterol Urine pH Urine WBC (Auto) Urine Creatinine Crossmatch 05/23/20 05/23/20 05/23/20 05:38 06:10 11:33 WBC RBC Hgb Hct MCV MCH RDW Plt Count Lymph % (Auto) Gordon # (Auto) Seg Neutrophils % Seg Neuts % (Manual) Lymphocytes % (Manual) Monocytes % (Manual) Eosinophils % (Manual) Seg Neutrophils # Seg Neutrophils # Man Lymphocytes # (Manual) Monocytes # (Manual) Eosinophils # (Manual) PT INR APTT Sodium Potassium Chloride Carbon Dioxide BUN Creatinine Glucose POC Glucose 112 H 128 H Lactic Acid Calcium Magnesium Direct Bilirubin Alkaline Phosphatase Troponin T NT-Pro-B Natriuret Pep Total Protein Albumin HDL Cholesterol Urine pH Urine WBC (Auto) Urine Creatinine Crossmatch See Detail 05/23/20 05/23/20 05/23/20 14:45 17:49 23:34 WBC RBC Hgb 8.4 L Hct 26.4 L MCV MCH RDW Plt Count Lymph % (Auto) Gordon # (Auto) Seg Neutrophils % Seg Neuts % (Manual) Lymphocytes % (Manual) Monocytes % (Manual) Eosinophils % (Manual) Seg Neutrophils # Seg Neutrophils # Man Lymphocytes # (Manual) Monocytes # (Manual) Eosinophils # (Manual) PT INR APTT Sodium Potassium Chloride Carbon Dioxide BUN Creatinine Glucose POC Glucose 112 H 116 H Lactic Acid Calcium Magnesium Direct Bilirubin Alkaline Phosphatase Troponin T NT-Pro-B Natriuret Pep Total Protein Albumin HDL Cholesterol Urine pH Urine WBC (Auto) Urine Creatinine Crossmatch 05/24/20 05/24/20 05/25/20 05:45 05:45 05:00 WBC 18.4 H RBC 3.35 L Hgb 8.6 L Hct 26.5 L MCV 79 L MCH 26 L RDW 23.9 H Plt Count Lymph % (Auto) Gordon # (Auto) Seg Neutrophils % Seg Neuts % (Manual) 81.0 H Lymphocytes % (Manual) 12.0 L Monocytes % (Manual) Eosinophils % (Manual) Seg Neutrophils # Seg Neutrophils # Man 14.9 H Lymphocytes # (Manual) Monocytes # (Manual) 1.3 H Eosinophils # (Manual) PT INR APTT Sodium Potassium 3.1 L Chloride 109.5 H Carbon Dioxide BUN Creatinine Glucose 111 H POC Glucose Lactic Acid Calcium 6.8 L 7.2 L Magnesium 1.00 L Direct Bilirubin Alkaline Phosphatase Troponin T NT-Pro-B Natriuret Pep Total Protein Albumin HDL Cholesterol Urine pH Urine WBC (Auto) Urine Creatinine Crossmatch 05/25/20 05/25/20 05/25/20 09:34 11:31 18:25 WBC 12.7 H RBC 3.14 L Hgb 8.0 L Hct 24.6 L MCV 78 L MCH 25 L RDW 25.0 H Plt Count Lymph % (Auto) Gordon # (Auto) Seg Neutrophils % Seg Neuts % (Manual) 94.0 H Lymphocytes % (Manual) 3.0 L Monocytes % (Manual) Eosinophils % (Manual) Seg Neutrophils # Seg Neutrophils # Man 11.9 H Lymphocytes # (Manual) 0.4 L Monocytes # (Manual) Eosinophils # (Manual) PT INR APTT Sodium Potassium Chloride Carbon Dioxide BUN Creatinine Glucose POC Glucose 63 L 57 L Lactic Acid Calcium Magnesium Direct Bilirubin Alkaline Phosphatase Troponin T NT-Pro-B Natriuret Pep Total Protein Albumin HDL Cholesterol Urine pH Urine WBC (Auto) Urine Creatinine Crossmatch 05/25/20 05/26/20 05/26/20 23:44 04:16 04:16 WBC RBC 3.07 L Hgb 8.0 L Hct 24.2 L MCV 79 L MCH 26 L RDW 24.8 H Plt Count Lymph % (Auto) Gordon # (Auto) Seg Neutrophils % Seg Neuts % (Manual) 85.0 H Lymphocytes % (Manual) 8.0 L Monocytes % (Manual) Eosinophils % (Manual) 5.0 H Seg Neutrophils # Seg Neutrophils # Man 7.9 H Lymphocytes # (Manual) 0.7 L Monocytes # (Manual) Eosinophils # (Manual) 0.5 H PT INR APTT Sodium Potassium 3.4 L Chloride 108.6 H Carbon Dioxide BUN Creatinine 0.7 L Glucose 101 H POC Glucose 52 L Lactic Acid Calcium 7.7 L Magnesium Direct Bilirubin Alkaline Phosphatase Troponin T NT-Pro-B Natriuret Pep Total Protein Albumin HDL Cholesterol Urine pH Urine WBC (Auto) Urine Creatinine Crossmatch 05/26/20 05/27/20 05/27/20 12:41 00:45 06:23 WBC RBC Hgb Hct MCV MCH RDW Plt Count Lymph % (Auto) Gordon # (Auto) Seg Neutrophils % Seg Neuts % (Manual) Lymphocytes % (Manual) Monocytes % (Manual) Eosinophils % (Manual) Seg Neutrophils # Seg Neutrophils # Man Lymphocytes # (Manual) Monocytes # (Manual) Eosinophils # (Manual) PT INR APTT Sodium 135 L Potassium 3.4 L Chloride Carbon Dioxide BUN Creatinine Glucose POC Glucose 64 L Lactic Acid Calcium 7.4 L Magnesium Direct Bilirubin Alkaline Phosphatase 566 H Troponin T NT-Pro-B Natriuret Pep Total Protein 5.3 L D Albumin 1.9 L HDL Cholesterol Urine pH Urine WBC (Auto) Urine Creatinine Crossmatch 05/28/20 04:35 WBC RBC Hgb Hct MCV MCH RDW Plt Count Lymph % (Auto) Gordon # (Auto) Seg Neutrophils % Seg Neuts % (Manual) Lymphocytes % (Manual) Monocytes % (Manual) Eosinophils % (Manual) Seg Neutrophils # Seg Neutrophils # Man Lymphocytes # (Manual) Monocytes # (Manual) Eosinophils # (Manual) PT INR APTT Sodium Potassium Chloride Carbon Dioxide BUN Creatinine 0.7 L Glucose POC Glucose Lactic Acid Calcium 7.7 L Magnesium Direct Bilirubin Alkaline Phosphatase Troponin T NT-Pro-B Natriuret Pep Total Protein Albumin HDL Cholesterol Urine pH Urine WBC (Auto) Urine Creatinine Crossmatch Allied health notes reviewed: nursing
--- NOTE | 2020-05-28 15:53 | Progress Note ---
Assessment and Plan 1. Acute kidney injury: Vasomotor EBENEZER in the setting of septic shock. CT abdomen negative for hydro. ATN. Creatinine level is better. Monitor renal function. Avoid nephrotoxic agents. Meds dosage based on GFR. 2. FEN: Monitor volume status and lytes. 3. Urosepsis, POA: Lactic acidosis. Broad spectrum Abx. Follow cultures. 4. Septic shock: Off pressors. 5. Toxic metabolic encephalopathy: Baseline MS is unknown. Monitor. 6. Anemia, POA: Transfuse prn. Monitor. 7. Gall bladder drain, POA. 8. Elevated blood sugar: Monitor. Subjective: Patient was seen and examined at the bedside. Examination: General appearance: well-developed, appears stated age, not in distress HEENT: ATNC, R pupil is dilated Neck: Trachea midline Respiratory: ctab Cardiology: regular, S1S2, no murmur Abdomen: soft, normoactive bowel sounds, RUQ drain, not tender, not distended Integumentary: warm and dry, no obvious rash Neurologic: alert, able to tell his name, R hemiplegia : Engel catheter Subjective Date of service: 05/28/20 Principal diagnosis: Septic shock; Metabolic Acidosis; Ac, Toxic metabolic encephalopathy; EBENEZER Objective - Vital Signs Vital signs: Vital Signs - 12hr 05/28/20 05/28/20 05:09 09:06 Temperature 98.0 F 98.3 F Pulse Rate 81 79 Respiratory 18 Rate Blood Pressure 135/66 132/73 O2 Sat by Pulse 96 98 Oximetry - Lab 05/26/20 04:16 05/28/20 04:35 Most recent lab results Calcium 7.7 mg/dL (8.4-10.2) L 05/28/20 04:35 Phosphorus 2.80 mg/dL (2.5-4.5) 05/24/20 05:45 Magnesium 2.30 mg/dL (1.7-2.3) 05/25/20 05:00 Urine Creatinine 48.1 mg/dL (0.1-20.0) H 05/22/20 09:49 Urine Sodium 130 mmol/L 05/22/20 09:49 Medications & Allergies - Medications Allergies/Adverse Reactions: Allergies No Known Allergies Allergy (Unverified 04/14/18 14:09) Home Medications: Home Medications Medication Instructions Recorded Confirmed Last Taken Type Pantoprazole [Protonix TAB] 40 mg PO BID #60 tablet 04/14/18 05/22/20 Unknown Rx Aspirin [Aspirin BABY CHEW TAB] 81 mg PO QDAY #60 tab.chew 11/10/19 05/22/20 Unknown Rx AtorvaSTATin [Lipitor] 80 mg PO QHS #60 tablet 11/10/19 05/22/20 Unknown Rx Clopidogrel [Plavix] 75 mg PO QDAY #60 tablet 11/10/19 05/22/20 Unknown Rx NIFEdipine XL [Procardia Xl] 30 mg PO Q12HR #30 tablet 11/10/19 05/22/20 Unknown Rx carvediloL [Coreg] 3.125 mg PO BID #60 tablet 03/22/20 05/22/20 Unknown Rx Povidone-Iodine [Betadine] 1 applicatio TD DAILY 05/22/20 05/22/20 Unknown History Active Medications: Generic Name Dose Route Start Last Admin Trade Name Freq PRN Reason Stop Dose Admin Acetaminophen 650 mg 05/22/20 12:31 Acetaminophen 325 Mg Tab PO Q6H PRN Pain, Mild (1-3) Albuterol 2.5 mg 05/22/20 12:14 Albuterol 2.5 Mg/3 Ml Nebu IH Q3HRT PRN Shortness Of Breath Aspirin 81 mg 05/23/20 10:00 05/28/20 10:15 Aspirin 81 Mg Tab Chew PO 81 mg QDAY VANE Administration Atorvastatin Calcium 80 mg 05/22/20 22:00 05/27/20 21:36 Atorvastatin 40 Mg Tab PO 80 mg QHS VANE Administration Clopidogrel Bisulfate 75 mg 05/23/20 10:00 05/28/20 10:15 Clopidogrel 75 Mg Tab PO 75 mg QDAY VANE Administration Dextrose 25 ml 05/25/20 00:13 05/25/20 23:59 Dextrose 50% In Water (25gm) 50 Ml Syringe IV 25 ml Q30MIN PRN Administration Hypoglycemia Protocol Heparin Sodium (Porcine) 5,000 unit 05/22/20 22:00 05/28/20 10:15 Heparin 5,000 Unit/1 Ml Vial SUB-Q 5,000 unit Q12HR VANE Administration Hydromorphone HCl 0.25 mg 05/22/20 12:31 05/27/20 23:29 Hydromorphone 1 Mg/1 Ml Inj IV 0.25 mg Q4H PRN Administration Pain, Moderate (4-6) Cefepime HCl 2 gm in 100 mls @ 200 mls/hr 05/25/20 08:00 05/28/20 10:17 Cefepime/Ns 2 Gm/100 Ml IV 05/28/20 23:59 200 mls/hr Q8H VANE Administration Protocol Dextrose 1,000 mls @ 75 mls/hr 05/26/20 01:00 05/28/20 05:18 D5w IV 75 mls/hr DIRECT VANE Administration Pantoprazole Sodium 40 mg 05/22/20 22:00 05/28/20 10:15 Pantoprazole 40 Mg Tab PO 40 mg BID VANE Administration Sodium Chloride 10 ml 05/22/20 22:00 05/28/20 10:15 Sodium Chloride 0.9% 10 Ml Flush Syringe IV 10 ml BID VANE Administration Sodium Chloride 10 ml 05/22/20 12:14 Sodium Chloride 0.9% 10 Ml Flush Syringe IV PRN PRN LINE FLUSH
[2020-05-28] MEDS: HYDROmorphone 1 MG/1 ML INJ IV PRN (21:57)
[2020-05-29] MEDS: DEXTROSE 5% IN WATER 1,000 ML IV SCH ×2 (06:28→16:49)
[2020-05-29] MEDS: CLOPIDOGREL 75 MG TAB PO SCH (10:02)
[2020-05-29] MEDS: PANTOPRAZOLE 40 MG TAB PO SCH ×2 (10:02→21:46)
[2020-05-29] MEDS: ASPIRIN 81 MG TAB CHEW PO SCH (10:02)
[2020-05-29] MEDS: HEPARIN 5,000 UNIT/1 ML VIAL SUB-Q SCH ×2 (10:09→21:46)
--- NOTE | 2020-05-29 10:11 | Progress Note ---
Assessment and Plan (1) Septic shock Current Visit: Yes Status: Acute Plan to address problem: Sepsis protocol: CBC, CMP, chest x-ray, urinalysis, IV antibiotic therapy, blood cultures., IV pressor support, maintain mean arterial pressure greater than or equal to 65, monitor urine output every shift, serial lactic acid level. Critical care team consulted. The high probability of a clinically significant, sudden or life threatening deterioration of the [neuro, renal, infectious disease] system(s) required my full and direct attention, intervention and personal management. The aggregate critical care time was [65] minutes. This time is in addition to time spent performing reported procedures but includes the following: Improved awaiting placement. [] Data Review and interpretation [] Patient assessment and monitoring of vital signs [ Documentation Medication orders and management (2) Acidosis Current Visit: Yes Status: Acute Plan to address problem: IV fluid resuscitation therapy, BMP, repeat BMP in a.m., IV bicarbonate therapy x1. Serial lactic acid level. Continues to improve awaiting placement. (3) Toxic metabolic encephalopathy Current Visit: Yes Status: Acute Plan to address problem: Supportive care, treat sepsis, IV fluid resuscitation therapy, neuro check, seizure precautions. Resolved currently awaiting placement. (4) Acute renal failure Current Visit: Yes Status: Acute Qualifiers: Acute renal failure type: with acute tubular necrosis Qualified Code(s): N17.0 - Acute kidney failure with tubular necrosis Plan to address problem: IV fluid resuscitation therapy, nephrology team consulted in ED, urine electrolytes, supportive care. IV fluid resuscitation therapy. (5) UTI (urinary tract infection) Current Visit: Yes Status: Acute Qualifiers: Encounter type: initial encounter Plan to address problem: Urinalysis, CBC, IV antibiotic therapy, supportive care, blood cultures. (6) DVT prophylaxis Current Visit: Yes Status: Acute Plan to address problem: SCD to bilateral lower extremities while in bed, prophylactic anticoagulation. (7) Advance care planning Current Visit: Yes Status: Acute Plan to address problem: Disease education conducted, patient is full code, prognosis discussed, diagnosis discussed, care plan discussed, +30 minutes. Patient decreased p.o. intake diet changes and will reevaluate. Subjective Date of service: 05/29/20 Principal diagnosis: Septic shock; Metabolic Acidosis; Ac, Toxic metabolic encephalopathy; EBENEZER Interval history: 05/23/2020 -Septic shock likely due to UTI, patient is on IV cefepime, IV fluid and pressor support. Critical care consulted -Acute renal failure, improved with IV fluids, nephrology consulted 05/24/2020 -Admitted for septic shock due to UTI, patient is on IV cefepime, IV fluids, pressor support, ID consulted. -Acute renal failure IV fluids and nephrology consult -Patient is saturating 100% on room air -Patient was alert 05/25/2020 -Patient is on IV cefepime and ID increase the dose. -Acute renal failure is improving -Patient had history of cholecystostomy tube placement and was seen by general surgery and order imaging study. -Patient is still on pressors for low blood pressure 05/27/2020 -Patient was admitted for septic shock and he is doing well. Continue with cefepime while he is here and can be discharged with po Levaquin to finish a total of 7 days course of antibiotics. He was evaluated by general surgery and imaging was done and no further work-up is needed. GI also saw the patient. Patient is stable for discharge Case management is working for placement. Patient's family does not want him to go back to the facility where he came from. 05/28/2020 patient is alert today able to make needs known at this particular time. Recently admitted for septic shock. Currently treated with cefepime while in house. Awaiting placement will change to Levaquin to complete 6 more days of antibiotics. Stable for discharge awaiting placement Case management. 05/29/2020. Patient doing well able to make all needs known no new concerns. Patient wants to know that he was doing well. No more in shock. Awaiting placement. Patient tolerated change to Levaquin well. Patient is not eating solid foods that well will change to pured diet and see how effective that may be. Objective - Constitutional Vitals: Vital Signs - 12hr 05/28/20 05/28/20 05/29/20 22:27 22:32 00:00 Temperature Pulse Rate 56 L Respiratory 20 Rate Blood Pressure O2 Sat by Pulse 97 Oximetry 05/29/20 05/29/20 05/29/20 00:41 05:00 09:14 Temperature 98.0 F 98.6 F 98.3 F Pulse Rate 56 L 91 H Respiratory 18 18 Rate Blood Pressure 132/75 140/65 135/70 O2 Sat by Pulse 83 L 90 Oximetry General appearance: Present: no acute distress, well-nourished - EENT Eyes: PERRL, EOM intact ENT: hearing intact, clear oral mucosa Ears: bilateral: normal - Neck Neck: supple, normal ROM - Respiratory Respiratory effort: normal Respiratory: bilateral: CTA - Breasts Breasts: normal - Cardiovascular Rhythm: regular Heart Sounds: Present: S1 & S2. Absent: gallop, rub Extremities: pulses intact, No edema, normal color, Full ROM - Gastrointestinal General gastrointestinal: Present: soft, non-tender, non-distended, normal bowel sounds - Genitourinary Male genitourinary: normal - Integumentary Integumentary: clear, warm, dry - Musculoskeletal Musculoskeletal: 1, strength equal bilaterally - Neurologic Neurologic: moves all extremities, other (Dense right hemiparesis. Chronic changes of CVA.) - Psychiatric Psychiatric: memory intact, appropriate mood/affect, intact judgment & insight - Labs CBC & Chem 7: 05/26/20 04:16 05/28/20 04:35 HEART Score - HEART Score Troponin: Troponin T 0.271 ng/mL (0.00-0.029) H* 05/22/20 09:10
--- NOTE | 2020-05-29 11:35 | Progress Note ---
Assessment and Plan 1. Acute kidney injury: Vasomotor EBENEZER in the setting of septic shock. CT abdomen negative for hydro. ATN. Creatinine level is better. Monitor renal function. Avoid nephrotoxic agents. Meds dosage based on GFR. 2. FEN: On IV D5W for hypoglycemia. Monitor volume status and lytes. 3. Urosepsis, POA: S/p Abx. 4. Septic shock: Off pressors. 5. Toxic metabolic encephalopathy: Baseline MS is unknown. Monitor. 6. Anemia, POA: Transfuse prn. Monitor. 7. Gall bladder drain, POA. 8. Low blood sugar: On D5W, Monitor. Subjective: Patient was seen and examined at the bedside. RN at the bedside. Examination: General appearance: well-developed, appears stated age, not in distress HEENT: ATNC, R pupil is dilated Neck: Trachea midline Respiratory: ctab Cardiology: regular, S1S2, no murmur Abdomen: soft, normoactive bowel sounds, RUQ drain, not tender, not distended Integumentary: warm and dry, no obvious rash Neurologic: alert, R hemiplegia : Engel catheter Subjective Date of service: 05/29/20 Principal diagnosis: Septic shock; Metabolic Acidosis; Ac, Toxic metabolic encephalopathy; EBENEZER Objective - Vital Signs Vital signs: Vital Signs - 12hr 05/29/20 05/29/20 05/29/20 00:00 00:41 05:00 Temperature 98.0 F 98.6 F Pulse Rate 56 L 56 L Respiratory 18 18 Rate Blood Pressure 132/75 140/65 O2 Sat by Pulse 83 L Oximetry 05/29/20 09:14 Temperature 98.3 F Pulse Rate 91 H Respiratory Rate Blood Pressure 135/70 O2 Sat by Pulse 90 Oximetry - Lab 05/26/20 04:16 05/28/20 04:35 Most recent lab results Calcium 7.7 mg/dL (8.4-10.2) L 05/28/20 04:35 Phosphorus 2.80 mg/dL (2.5-4.5) 05/24/20 05:45 Magnesium 2.30 mg/dL (1.7-2.3) 05/25/20 05:00 Urine Creatinine 48.1 mg/dL (0.1-20.0) H 05/22/20 09:49 Urine Sodium 130 mmol/L 05/22/20 09:49 Medications & Allergies - Medications Allergies/Adverse Reactions: Allergies No Known Allergies Allergy (Unverified 04/14/18 14:09) Home Medications: Home Medications Medication Instructions Recorded Confirmed Last Taken Type Pantoprazole [Protonix TAB] 40 mg PO BID #60 tablet 04/14/18 05/22/20 Unknown Rx Aspirin [Aspirin BABY CHEW TAB] 81 mg PO QDAY #60 tab.chew 11/10/19 05/22/20 Unknown Rx AtorvaSTATin [Lipitor] 80 mg PO QHS #60 tablet 11/10/19 05/22/20 Unknown Rx Clopidogrel [Plavix] 75 mg PO QDAY #60 tablet 11/10/19 05/22/20 Unknown Rx NIFEdipine XL [Procardia Xl] 30 mg PO Q12HR #30 tablet 11/10/19 05/22/20 Unknown Rx carvediloL [Coreg] 3.125 mg PO BID #60 tablet 03/22/20 05/22/20 Unknown Rx Povidone-Iodine [Betadine] 1 applicatio TD DAILY 05/22/20 05/22/20 Unknown History Active Medications: Generic Name Dose Route Start Last Admin Trade Name Freq PRN Reason Stop Dose Admin Acetaminophen 650 mg 05/22/20 12:31 Acetaminophen 325 Mg Tab PO Q6H PRN Pain, Mild (1-3) Albuterol 2.5 mg 05/22/20 12:14 Albuterol 2.5 Mg/3 Ml Nebu IH Q3HRT PRN Shortness Of Breath Aspirin 81 mg 05/23/20 10:00 05/29/20 10:02 Aspirin 81 Mg Tab Chew PO 81 mg QDAY VANE Administration Atorvastatin Calcium 80 mg 05/22/20 22:00 05/28/20 21:49 Atorvastatin 40 Mg Tab PO 80 mg QHS VANE Administration Clopidogrel Bisulfate 75 mg 05/23/20 10:00 05/29/20 10:02 Clopidogrel 75 Mg Tab PO 75 mg QDAY VANE Administration Dextrose 25 ml 05/25/20 00:13 05/25/20 23:59 Dextrose 50% In Water (25gm) 50 Ml Syringe IV 25 ml Q30MIN PRN Administration Hypoglycemia Protocol Heparin Sodium (Porcine) 5,000 unit 05/22/20 22:00 05/29/20 10:09 Heparin 5,000 Unit/1 Ml Vial SUB-Q 5,000 unit Q12HR VANE Administration Hydromorphone HCl 0.25 mg 05/22/20 12:31 05/28/20 21:57 Hydromorphone 1 Mg/1 Ml Inj IV 0.25 mg Q4H PRN Administration Pain, Moderate (4-6) Dextrose 1,000 mls @ 75 mls/hr 05/26/20 01:00 05/29/20 06:28 D5w IV 75 mls/hr DIRECT VANE Administration Pantoprazole Sodium 40 mg 05/22/20 22:00 05/29/20 10:02 Pantoprazole 40 Mg Tab PO 40 mg BID VANE Administration Sodium Chloride 10 ml 05/22/20 22:00 05/29/20 10:03 Sodium Chloride 0.9% 10 Ml Flush Syringe IV 10 ml BID VANE Administration Sodium Chloride 10 ml 05/22/20 12:14 Sodium Chloride 0.9% 10 Ml Flush Syringe IV PRN PRN LINE FLUSH
--- NOTE | 2020-05-29 14:05 | Progress Note ---
Assessment and Plan Septic shock Metabolic Acidosis Acute Toxic metabolic encephalopathy Acute renal failure UTI (urinary tract infection) Acute Cystitis - continue antiinfective's per ID (cefepime 2 gms IV q8h X 7 days) - will need ouitpatient surgery f/up - fall precautions - continue care as below otherwise; - continue empiric Cefepime (trend lactate, procalcitonin to aid clinical decision making) - continue accuchecks with glycemic control per SSI for target blood glucose of < 180 mg/dL; avoid hypoglycemia - continue to wean supplemental oxygen for target O2 sat's > 92% acutely - aspiration precautions - prn bronchodilators with pulmonary hygiene per RT - avoid nephrotoxins, renally dose all medications - avoid benzodiazepine's, reduce the possibility of delirium - prn analgesia per pain score - Maintenance of sleep-wake cycle, avoid delirium - aspiration precautions - G.I. & VTE prophylaxis - PT/OT/ROM exercises - mobility protocols for pressure ulcer prophylaxis - Monitor hemodynamics closely - continue other care per attending / other consultants - discharge planning ongoing concurrently .... Re-evaluate in am & prn Subjective Date of service: 05/29/20 Principal diagnosis: Septic shock; Metabolic Acidosis; Ac, Toxic metabolic encephalopathy; EBENEZER Interval history: Patient is seen today for: Septic shock; Metabolic Acidosis; Acute Toxic metabolic encephalopathy; Acute renal failure; UTI (urinary tract infection) Seen and examined at bedside; 24hour events reviewed; nursing and respiratory care staff consulted; no adverse overnight events reported to me; resting peac efully in bed; Objective Vital Signs - 12hr 05/29/20 05/29/20 05:00 09:14 Temperature 98.6 F 98.3 F Pulse Rate 91 H Respiratory 18 Rate Blood Pressure 140/65 135/70 O2 Sat by Pulse 90 Oximetry Constitutional: no acute distress, other (elderly looking male with normal respiratory effort at rest) Eyes: non-icteric ENT: oropharynx moist Neck: supple, no lymphadenopathy, no JVD Effort: normal Ascultation: Bilateral: clear Percussion: Bilateral: not dull Cardiovascular: regular rate and rhythm Gastrointestinal: normoactive bowel sounds, soft, tender (mild, LLQ, RUQ), non- distended (protuberant'), other (RUQ J-P drain) Integumentary: normal Extremities: no cyanosis, no edema, pink and warm, pulses normal Neurologic: non-focal exam (grossly), pupils equal and round, CN II-XII normal, other (slow to respond) Psychiatric: other (flat affect) CBC and BMP: 05/26/20 04:16 05/28/20 04:35 ABG, PT/INR, D-dimer: PT/INR, D-dimer PT 15.5 Sec. (12.2-14.9) H 05/22/20 09:10 INR 1.25 (0.87-1.13) H 05/22/20 09:10 Abnormal lab findings: Abnormal Labs 05/22/20 05/22/20 05/22/20 09:10 09:10 09:10 WBC 17.9 H RBC 3.60 L Hgb 8.7 L Hct 26.8 L MCV 74 L MCH 24 L RDW 24.0 H Plt Count 621 H Lymph % (Auto) [place] # (Auto) Seg Neutrophils % Seg Neuts % (Manual) 85.0 H Lymphocytes % (Manual) 5.0 L Monocytes % (Manual) 8.0 H Eosinophils % (Manual) Seg Neutrophils # Seg Neutrophils # Man 15.2 H Lymphocytes # (Manual) 0.9 L Monocytes # (Manual) 1.4 H Eosinophils # (Manual) PT INR APTT Sodium Potassium Chloride Carbon Dioxide BUN Creatinine Glucose POC Glucose Lactic Acid 3.30 H* Calcium Magnesium Direct Bilirubin Alkaline Phosphatase Troponin T 0.271 H* NT-Pro-B Natriuret Pep Total Protein Albumin HDL Cholesterol 39 L Urine pH Urine WBC (Auto) Urine Creatinine Crossmatch 05/22/20 05/22/20 05/22/20 09:10 09:10 09:32 WBC RBC Hgb Hct MCV MCH RDW Plt Count Lymph % (Auto) [place] # (Auto) Seg Neutrophils % Seg Neuts % (Manual) Lymphocytes % (Manual) Monocytes % (Manual) Eosinophils % (Manual) Seg Neutrophils # Seg Neutrophils # Man Lymphocytes # (Manual) Monocytes # (Manual) Eosinophils # (Manual) PT 15.5 H INR 1.25 H APTT 47.6 H Sodium 136 L Potassium Chloride 97.2 L Carbon Dioxide BUN 36 H Creatinine 3.8 H Glucose 133 H POC Glucose Lactic Acid Calcium 7.8 L Magnesium Direct Bilirubin 0.3 H Alkaline Phosphatase 248 H Troponin T NT-Pro-B Natriuret Pep 1448 H Total Protein Albumin 2.8 L HDL Cholesterol Urine pH 8.0 H Urine WBC (Auto) > 182.0 H Urine Creatinine Crossmatch 05/22/20 05/22/20 05/22/20 09:49 11:42 19:48 WBC RBC Hgb Hct MCV MCH RDW Plt Count Lymph % (Auto) [place] # (Auto) Seg Neutrophils % Seg Neuts % (Manual) Lymphocytes % (Manual) Monocytes % (Manual) Eosinophils % (Manual) Seg Neutrophils # Seg Neutrophils # Man Lymphocytes # (Manual) Monocytes # (Manual) Eosinophils # (Manual) PT INR APTT Sodium Potassium Chloride Carbon Dioxide BUN Creatinine Glucose POC Glucose Lactic Acid 3.70 H* 2.10 H* Calcium Magnesium Direct Bilirubin Alkaline Phosphatase Troponin T NT-Pro-B Natriuret Pep Total Protein Albumin HDL Cholesterol Urine pH Urine WBC (Auto) Urine Creatinine 48.1 H Crossmatch 05/22/20 05/23/20 05/23/20 23:27 05:05 05:05 WBC 20.3 H RBC 2.73 L Hgb 6.6 L Hct 20.8 L D MCV 76 L MCH 24 L RDW 23.9 H Plt Count 546 H Lymph % (Auto) 11.5 L [place] # (Auto) 1.2 H Seg Neutrophils % 81.5 H Seg Neuts % (Manual) Lymphocytes % (Manual) Monocytes % (Manual) Eosinophils % (Manual) Seg Neutrophils # 16.5 H Seg Neutrophils # Man Lymphocytes # (Manual) Monocytes # (Manual) Eosinophils # (Manual) PT INR APTT Sodium Potassium Chloride 112.5 H Carbon Dioxide 20 L BUN 26 H Creatinine 1.8 H D Glucose 135 H POC Glucose 124 H Lactic Acid Calcium 6.8 L Magnesium Direct Bilirubin Alkaline Phosphatase Troponin T NT-Pro-B Natriuret Pep Total Protein Albumin HDL Cholesterol Urine pH Urine WBC (Auto) Urine Creatinine Crossmatch 05/23/20 05/23/20 05/23/20 05:38 06:10 11:33 WBC RBC Hgb Hct MCV MCH RDW Plt Count Lymph % (Auto) [place] # (Auto) Seg Neutrophils % Seg Neuts % (Manual) Lymphocytes % (Manual) Monocytes % (Manual) Eosinophils % (Manual) Seg Neutrophils # Seg Neutrophils # Man Lymphocytes # (Manual) Monocytes # (Manual) Eosinophils # (Manual) PT INR APTT Sodium Potassium Chloride Carbon Dioxide BUN Creatinine Glucose POC Glucose 112 H 128 H Lactic Acid Calcium Magnesium Direct Bilirubin Alkaline Phosphatase Troponin T NT-Pro-B Natriuret Pep Total Protein Albumin HDL Cholesterol Urine pH Urine WBC (Auto) Urine Creatinine Crossmatch See Detail 05/23/20 05/23/20 05/23/20 14:45 17:49 23:34 WBC RBC Hgb 8.4 L Hct 26.4 L MCV MCH RDW Plt Count Lymph % (Auto) [place] # (Auto) Seg Neutrophils % Seg Neuts % (Manual) Lymphocytes % (Manual) Monocytes % (Manual) Eosinophils % (Manual) Seg Neutrophils # Seg Neutrophils # Man Lymphocytes # (Manual) Monocytes # (Manual) Eosinophils # (Manual) PT INR APTT Sodium Potassium Chloride Carbon Dioxide BUN Creatinine Glucose POC Glucose 112 H 116 H Lactic Acid Calcium Magnesium Direct Bilirubin Alkaline Phosphatase Troponin T NT-Pro-B Natriuret Pep Total Protein Albumin HDL Cholesterol Urine pH Urine WBC (Auto) Urine Creatinine Crossmatch 05/24/20 05/24/20 05/25/20 05:45 05:45 05:00 WBC 18.4 H RBC 3.35 L Hgb 8.6 L Hct 26.5 L MCV 79 L MCH 26 L RDW 23.9 H Plt Count Lymph % (Auto) [place] # (Auto) Seg Neutrophils % Seg Neuts % (Manual) 81.0 H Lymphocytes % (Manual) 12.0 L Monocytes % (Manual) Eosinophils % (Manual) Seg Neutrophils # Seg Neutrophils # Man 14.9 H Lymphocytes # (Manual) Monocytes # (Manual) 1.3 H Eosinophils # (Manual) PT INR APTT Sodium Potassium 3.1 L Chloride 109.5 H Carbon Dioxide BUN Creatinine Glucose 111 H POC Glucose Lactic Acid Calcium 6.8 L 7.2 L Magnesium 1.00 L Direct Bilirubin Alkaline Phosphatase Troponin T NT-Pro-B Natriuret Pep Total Protein Albumin HDL Cholesterol Urine pH Urine WBC (Auto) Urine Creatinine Crossmatch 05/25/20 05/25/20 05/25/20 09:34 11:31 18:25 WBC 12.7 H RBC 3.14 L Hgb 8.0 L Hct 24.6 L MCV 78 L MCH 25 L RDW 25.0 H Plt Count Lymph % (Auto) [place] # (Auto) Seg Neutrophils % Seg Neuts % (Manual) 94.0 H Lymphocytes % (Manual) 3.0 L Monocytes % (Manual) Eosinophils % (Manual) Seg Neutrophils # Seg Neutrophils # Man 11.9 H Lymphocytes # (Manual) 0.4 L Monocytes # (Manual) Eosinophils # (Manual) PT INR APTT Sodium Potassium Chloride Carbon Dioxide BUN Creatinine Glucose POC Glucose 63 L 57 L Lactic Acid Calcium Magnesium Direct Bilirubin Alkaline Phosphatase Troponin T NT-Pro-B Natriuret Pep Total Protein Albumin HDL Cholesterol Urine pH Urine WBC (Auto) Urine Creatinine Crossmatch 05/25/20 05/26/20 05/26/20 23:44 04:16 04:16 WBC RBC 3.07 L Hgb 8.0 L Hct 24.2 L MCV 79 L MCH 26 L RDW 24.8 H Plt Count Lymph % (Auto) [place] # (Auto) Seg Neutrophils % Seg Neuts % (Manual) 85.0 H Lymphocytes % (Manual) 8.0 L Monocytes % (Manual) Eosinophils % (Manual) 5.0 H Seg Neutrophils # Seg Neutrophils # Man 7.9 H Lymphocytes # (Manual) 0.7 L Monocytes # (Manual) Eosinophils # (Manual) 0.5 H PT INR APTT Sodium Potassium 3.4 L Chloride 108.6 H Carbon Dioxide BUN Creatinine 0.7 L Glucose 101 H POC Glucose 52 L Lactic Acid Calcium 7.7 L Magnesium Direct Bilirubin Alkaline Phosphatase Troponin T NT-Pro-B Natriuret Pep Total Protein Albumin HDL Cholesterol Urine pH Urine WBC (Auto) Urine Creatinine Crossmatch 05/26/20 05/27/20 05/27/20 12:41 00:45 06:23 WBC RBC Hgb Hct MCV MCH RDW Plt Count Lymph % (Auto) [place] # (Auto) Seg Neutrophils % Seg Neuts % (Manual) Lymphocytes % (Manual) Monocytes % (Manual) Eosinophils % (Manual) Seg Neutrophils # Seg Neutrophils # Man Lymphocytes # (Manual) Monocytes # (Manual) Eosinophils # (Manual) PT INR APTT Sodium 135 L Potassium 3.4 L Chloride Carbon Dioxide BUN Creatinine Glucose POC Glucose 64 L Lactic Acid Calcium 7.4 L Magnesium Direct Bilirubin Alkaline Phosphatase 566 H Troponin T NT-Pro-B Natriuret Pep Total Protein 5.3 L D Albumin 1.9 L HDL Cholesterol Urine pH Urine WBC (Auto) Urine Creatinine Crossmatch 05/28/20 04:35 WBC RBC Hgb Hct MCV MCH RDW Plt Count Lymph % (Auto) [place] # (Auto) Seg Neutrophils % Seg Neuts % (Manual) Lymphocytes % (Manual) Monocytes % (Manual) Eosinophils % (Manual) Seg Neutrophils # Seg Neutrophils # Man Lymphocytes # (Manual) Monocytes # (Manual) Eosinophils # (Manual) PT INR APTT Sodium Potassium Chloride Carbon Dioxide BUN Creatinine 0.7 L Glucose POC Glucose Lactic Acid Calcium 7.7 L Magnesium Direct Bilirubin Alkaline Phosphatase Troponin T NT-Pro-B Natriuret Pep Total Protein Albumin HDL Cholesterol Urine pH Urine WBC (Auto) Urine Creatinine Crossmatch Allied health notes reviewed: nursing
[2020-05-29] MEDS: DEXTROSE 50% IN WATER (25GM) 50 ML SYRINGE IV PRN (17:07)
[2020-05-29] MEDS: HYDROmorphone 1 MG/1 ML INJ IV PRN (21:45)
[2020-05-30] MEDS: HYDROmorphone 1 MG/1 ML INJ IV PRN (06:02)
[2020-05-30] MEDS: DEXTROSE 5% IN WATER 1,000 ML IV SCH ×2 (06:15→18:13)
[2020-05-30 06:20] LABS: Blood Urea Nitrogen 6 mg/dL (9-20); Calcium 7.5 mg/dL (8.4-10.2); Hemolysis Index 4
[2020-05-30 06:21] LABS: BUN/Creatinine Ratio 10
--- NOTE | 2020-05-30 07:46 | Progress Note ---
Assessment and Plan (1) Septic shock Current Visit: Yes Status: Acute Plan to address problem: Sepsis protocol: CBC, CMP, chest x-ray, urinalysis, IV antibiotic therapy, blood cultures., IV pressor support, maintain mean arterial pressure greater than or equal to 65, monitor urine output every shift, serial lactic acid level. Critical care team consulted. The high probability of a clinically significant, sudden or life threatening deterioration of the [neuro, renal, infectious disease] system(s) required my full and direct attention, intervention and personal management. The aggregate critical care time was [65] minutes. This time is in addition to time spent performing reported procedures but includes the following: Improved awaiting placement. [] Data Review and interpretation [] Patient assessment and monitoring of vital signs [ Documentation Medication orders and management (2) Acidosis Current Visit: Yes Status: Acute Plan to address problem: IV fluid resuscitation therapy, BMP, repeat BMP in a.m., IV bicarbonate therapy x1. Serial lactic acid level. Continues to improve awaiting placement. (3) Toxic metabolic encephalopathy Current Visit: Yes Status: Acute Plan to address problem: Supportive care, treat sepsis, IV fluid resuscitation therapy, neuro check, seizure precautions. Resolved currently awaiting placement. (4) Acute renal failure Current Visit: Yes Status: Acute Qualifiers: Acute renal failure type: with acute tubular necrosis Qualified Code(s): N17.0 - Acute kidney failure with tubular necrosis Plan to address problem: IV fluid resuscitation therapy, improving with IV resuscitation. Nephrology following. (5) UTI (urinary tract infection) Current Visit: Yes Status: Acute Qualifiers: Encounter type: initial encounter Plan to address problem: Urinalysis, CBC, IV antibiotic therapy, supportive care, blood cultures. (6) DVT prophylaxis Current Visit: Yes Status: Acute Plan to address problem: SCD to bilateral lower extremities while in bed, prophylactic anticoagulation. (7) Advance care planning Current Visit: Yes Status: Acute Plan to address problem: Disease education conducted, patient is full code, prognosis discussed, diagnosis discussed, care plan discussed, +30 minutes. Patient decreased p.o. intake diet changes and will reevaluate. Subjective Date of service: 05/30/20 Principal diagnosis: Septic shock; Metabolic Acidosis; Ac, Toxic metabolic encephalopathy; EBENEZER Interval history: 05/23/2020 -Septic shock likely due to UTI, patient is on IV cefepime, IV fluid and pressor support. Critical care consulted -Acute renal failure, improved with IV fluids, nephrology consulted 05/24/2020 -Admitted for septic shock due to UTI, patient is on IV cefepime, IV fluids, pressor support, ID consulted. -Acute renal failure IV fluids and nephrology consult -Patient is saturating 100% on room air -Patient was alert 05/25/2020 -Patient is on IV cefepime and ID increase the dose. -Acute renal failure is improving -Patient had history of cholecystostomy tube placement and was seen by general surgery and order imaging study. -Patient is still on pressors for low blood pressure 05/27/2020 -Patient was admitted for septic shock and he is doing well. Continue with cefepime while he is here and can be discharged with po Levaquin to finish a total of 7 days course of antibiotics. He was evaluated by general surgery and imaging was done and no further work-up is needed. GI also saw the patient. Patient is stable for discharge Case management is working for placement. Patient's family does not want him to go back to the facility where he came from. 05/28/2020 patient is alert today able to make needs known at this particular time. Recently admitted for septic shock. Currently treated with cefepime while in house. Awaiting placement will change to Levaquin to complete 6 more days of antibiotics. Stable for discharge awaiting placement Case management. 05/29/2020. Patient doing well able to make all needs known no new concerns. Patient wants to know that he was doing well. No more in shock. Awaiting placement. Patient tolerated change to Levaquin well. Patient is not eating solid foods that well will change to pured diet and see how effective that may be. 05/30/2020. Patient resting comfortably no acute distress. Hospital course uncomplicated over p.m. Patient doing better with change in the consistency of diet. Currently awaiting placement. Objective - Constitutional Vitals: Vital Signs - 12hr 05/29/20 05/29/20 05/29/20 20:34 21:45 22:00 Temperature 98.0 F Pulse Rate Respiratory 20 19 18 Rate Respiratory 18 Rate [Right Foot] Respiratory 18 Rate [Right Upper Arm] Blood Pressure 134/69 05/29/20 05/30/20 05/30/20 22:15 00:00 00:19 Temperature 98.0 F Pulse Rate 94 H Respiratory 16 18 Rate Respiratory Rate [Right Foot] Respiratory Rate [Right Upper Arm] Blood Pressure 122/76 05/30/20 05/30/20 05/30/20 05:08 06:02 06:32 Temperature 98.0 F Pulse Rate Respiratory 20 17 17 Rate Respiratory Rate [Right Foot] Respiratory Rate [Right Upper Arm] Blood Pressure 125/65 General appearance: Present: no acute distress, well-nourished - EENT Eyes: PERRL - Respiratory Respiratory effort: normal - Cardiovascular Rhythm: regular Heart Sounds: Present: S1 & S2. Absent: gallop, rub Extremity abnormal: other (Right-sided weakness generalized weakness functional quadriplegia) - Gastrointestinal General gastrointestinal: Present: soft, non-tender, non-distended, normal bowel sounds - Musculoskeletal Musculoskeletal: right sided weakness, generalized weakness - Neurologic Neurologic: focal deficits - Labs CBC & Chem 7: 05/26/20 04:16 05/30/20 05:42 Labs: Abnormal lab results 05/29/20 05/29/20 05/30/20 Range/Units 17:01 18:54 05:42 Potassium 3.4 L (3.6-5.0) mmol/L BUN 6 L (9-20) mg/dL Creatinine 0.6 L (0.8-1.3) mg/dL Glucose 105 H (75-100) mg/dL POC Glucose 57 L 135 H (70-105) mg/dL Calcium 7.5 L (8.4-10.2) mg/dL Phosphorus 1.80 L (2.5-4.5) mg/dL HEART Score - HEART Score Troponin: Troponin T 0.271 ng/mL (0.00-0.029) H* 05/22/20 09:10
[2020-05-30] MEDS ORDERED: POTASSIUM PHOSPHATE 40 MMOL in SODIUM CHLORIDE 0.9% 500 ML 500 ML IV ONE (09:02)
--- NOTE | 2020-05-30 09:03 | Progress Note ---
Assessment and Plan 1. Acute kidney injury: Vasomotor EBENEZER in the setting of septic shock. CT abdomen negative for hydro. ATN. Creatinine level is better. Monitor renal function. Avoid nephrotoxic agents. Meds dosage based on GFR. 2. FEN: Replete K and Phos. On IV D5W for hypoglycemia. Monitor volume status and lytes. 3. Urosepsis, POA: S/p Abx. 4. Septic shock: Off pressors. 5. Toxic metabolic encephalopathy: Baseline MS is unknown. Monitor. 6. Anemia, POA: Transfuse prn. Monitor. 7. Gall bladder drain, POA. 8. Low blood sugar: On D5W, Monitor. Subjective: Patient was seen and examined at the bedside. Examination: General appearance: well-developed, appears stated age, not in distress HEENT: ATNC, R pupil is dilated Neck: Trachea midline Respiratory: ctab Cardiology: regular, S1S2, no murmur Abdomen: soft, normoactive bowel sounds, RUQ drain, not tender, not distended Integumentary: warm and dry, no obvious rash Neurologic: alert, R hemiplegia : Engel catheter Subjective Date of service: 05/30/20 Principal diagnosis: Septic shock; Metabolic Acidosis; Ac, Toxic metabolic encephalopathy; EBENEZER Objective - Vital Signs Vital signs: Vital Signs - 12hr 05/29/20 05/29/20 05/29/20 21:45 22:00 22:15 Temperature Pulse Rate Respiratory 19 18 16 Rate Respiratory 18 Rate [Right Foot] Respiratory 18 Rate [Right Upper Arm] Blood Pressure O2 Sat by Pulse Oximetry 05/30/20 05/30/20 05/30/20 00:00 00:19 05:08 Temperature 98.0 F 98.0 F Pulse Rate 94 H Respiratory 18 20 Rate Respiratory Rate [Right Foot] Respiratory Rate [Right Upper Arm] Blood Pressure 122/76 125/65 O2 Sat by Pulse Oximetry 05/30/20 05/30/20 05/30/20 06:02 06:32 07:21 Temperature 98.4 F Pulse Rate 89 Respiratory 17 17 18 Rate Respiratory Rate [Right Foot] Respiratory Rate [Right Upper Arm] Blood Pressure 142/78 O2 Sat by Pulse 99 Oximetry - Lab 05/26/20 04:16 05/30/20 05:42 Most recent lab results Calcium 7.5 mg/dL (8.4-10.2) L 05/30/20 05:42 Phosphorus 1.80 mg/dL (2.5-4.5) L 05/30/20 05:42 Magnesium 2.30 mg/dL (1.7-2.3) 05/25/20 05:00 Urine Creatinine 48.1 mg/dL (0.1-20.0) H 05/22/20 09:49 Urine Sodium 130 mmol/L 05/22/20 09:49 Medications & Allergies - Medications Allergies/Adverse Reactions: Allergies No Known Allergies Allergy (Unverified 04/14/18 14:09) Home Medications: Home Medications Medication Instructions Recorded Confirmed Last Taken Type Pantoprazole [Protonix TAB] 40 mg PO BID #60 tablet 04/14/18 05/22/20 Unknown Rx Aspirin [Aspirin BABY CHEW TAB] 81 mg PO QDAY #60 tab.chew 11/10/19 05/22/20 Unknown Rx AtorvaSTATin [Lipitor] 80 mg PO QHS #60 tablet 11/10/19 05/22/20 Unknown Rx Clopidogrel [Plavix] 75 mg PO QDAY #60 tablet 11/10/19 05/22/20 Unknown Rx NIFEdipine XL [Procardia Xl] 30 mg PO Q12HR #30 tablet 11/10/19 05/22/20 Unknown Rx carvediloL [Coreg] 3.125 mg PO BID #60 tablet 03/22/20 05/22/20 Unknown Rx Povidone-Iodine [Betadine] 1 applicatio TD DAILY 05/22/20 05/22/20 Unknown History Active Medications: Generic Name Dose Route Start Last Admin Trade Name Matias PRN Reason Stop Dose Admin Acetaminophen 650 mg 05/22/20 12:31 Acetaminophen 325 Mg Tab PO Q6H PRN Pain, Mild (1-3) Albuterol 2.5 mg 05/22/20 12:14 Albuterol 2.5 Mg/3 Ml Nebu IH Q3HRT PRN Shortness Of Breath Aspirin 81 mg 05/23/20 10:00 05/29/20 10:02 Aspirin 81 Mg Tab Chew PO 81 mg QDAY VANE Administration Atorvastatin Calcium 80 mg 05/22/20 22:00 05/29/20 21:46 Atorvastatin 40 Mg Tab PO 80 mg QHS VANE Administration Clopidogrel Bisulfate 75 mg 05/23/20 10:00 05/29/20 10:02 Clopidogrel 75 Mg Tab PO 75 mg QDAY VANE Administration Dextrose 25 ml 05/25/20 00:13 05/29/20 17:07 Dextrose 50% In Water (25gm) 50 Ml Syringe IV 25 ml Q30MIN PRN Administration Hypoglycemia Protocol Heparin Sodium (Porcine) 5,000 unit 05/22/20 22:00 05/29/20 21:46 Heparin 5,000 Unit/1 Ml Vial SUB-Q 5,000 unit Q12HR VANE Administration Hydromorphone HCl 0.25 mg 05/22/20 12:31 05/30/20 06:02 Hydromorphone 1 Mg/1 Ml Inj IV 0.25 mg Q4H PRN Administration Pain, Moderate (4-6) Dextrose 1,000 mls @ 75 mls/hr 05/26/20 01:00 05/30/20 06:15 D5w IV 75 mls/hr DIRECT VANE Administration Pantoprazole Sodium 40 mg 05/22/20 22:00 05/29/20 21:46 Pantoprazole 40 Mg Tab PO 40 mg BID VANE Administration Sodium Chloride 10 ml 05/22/20 22:00 05/29/20 21:46 Sodium Chloride 0.9% 10 Ml Flush Syringe IV 10 ml BID VANE Administration Sodium Chloride 10 ml 05/22/20 12:14 Sodium Chloride 0.9% 10 Ml Flush Syringe IV PRN PRN LINE FLUSH
[2020-05-30] MEDS: ASPIRIN 81 MG TAB CHEW PO SCH (09:34)
[2020-05-30] MEDS: PANTOPRAZOLE 40 MG TAB PO SCH ×2 (09:34→22:35)
[2020-05-30] MEDS: CLOPIDOGREL 75 MG TAB PO SCH (09:34)
[2020-05-30] MEDS: HEPARIN 5,000 UNIT/1 ML VIAL SUB-Q SCH ×2 (10:18→22:35)
[2020-05-30] MEDS: DEXTROSE 50% IN WATER (25GM) 50 ML SYRINGE IV PRN (11:51)
--- NOTE | 2020-05-30 14:03 | Progress Note ---
Assessment and Plan Patient alert, awake. Resting on room air.O2 saturation 99% on room air. No acute respiratory distress. Patient afebrile. No leukocytosis. Chest xray done 05/22/20 reported no acute findings. Patient is on Albuterol inhaler, S/C Heparin, Protonix. - Patient Problems (1) Hypoxia Current Visit: No Status: Acute Plan to address problem: Improved. O2 saturation 99% on room air. (2) Septic shock Current Visit: Yes Status: Acute Plan to address problem: Improved. Patient treated with cefepime. (3) Acute renal failure Current Visit: Yes Status: Acute Qualifiers: Acute renal failure type: with acute tubular necrosis Qualified Code(s): N17.0 - Acute kidney failure with tubular necrosis Plan to address problem: Management as per nephrology. (4) Toxic metabolic encephalopathy Current Visit: Yes Status: Acute Plan to address problem: Management as per primary care. (5) UTI (urinary tract infection) Current Visit: Yes Status: Acute Qualifiers: Encounter type: initial encounter Plan to address problem: Patient was on cefepime. (6) Acute cholecystitis Current Visit: No Status: Acute Plan to address problem: S/P percutaneous cholecystotomy drain placement. Management as per gastroenterology. (7) CVA (cerebral vascular accident) Current Visit: No Status: Acute Plan to address problem: Management as per primary care. (8) Hypertension Current Visit: No Status: Acute Plan to address problem: Management as per primary care. Subjective Date of service: 05/30/20 Principal diagnosis: Septic shock; Metabolic Acidosis; Ac, Toxic metabolic encephalopathy; EBENEZER Interval history: Patient alert, awake. Resting on room air.O2 saturation 99% on room air. No acute respiratory distress. Patient afebrile. No leukocytosis. Chest xray done 05/22/20 reported no acute findings. Patient is on Albuterol inhaler, S/C Heparin, Protonix. Objective Vital Signs - 12hr 05/30/20 05/30/20 05/30/20 05:08 06:02 06:32 Temperature 98.0 F Pulse Rate Respiratory 20 17 17 Rate Blood Pressure 125/65 O2 Sat by Pulse Oximetry 05/30/20 05/30/20 07:21 12:09 Temperature 98.4 F 98.4 F Pulse Rate 89 87 Respiratory 18 18 Rate Blood Pressure 142/78 151/91 O2 Sat by Pulse 99 99 Oximetry Constitutional: no acute distress, alert Eyes: non-icteric ENT: oropharynx moist Neck: supple, no lymphadenopathy, no JVD Effort: normal Ascultation: Bilateral: clear Percussion: Bilateral: not dull Cardiovascular: regular rate and rhythm Gastrointestinal: normoactive bowel sounds, soft, tender (mild, LLQ, RUQ), non- distended (protuberant'), other (RUQ J-P drain) Integumentary: normal Extremities: no cyanosis, no edema, pink and warm, pulses normal Neurologic: non-focal exam (grossly), pupils equal and round, CN II-XII normal, other (slow to respond) Psychiatric: other (flat affect) CBC and BMP: 05/26/20 04:16 05/30/20 05:42 ABG, PT/INR, D-dimer: PT/INR, D-dimer PT 15.5 Sec. (12.2-14.9) H 05/22/20 09:10 INR 1.25 (0.87-1.13) H 05/22/20 09:10 Abnormal lab findings: Abnormal Labs 05/22/20 05/22/20 05/22/20 09:10 09:10 09:10 WBC 17.9 H RBC 3.60 L Hgb 8.7 L Hct 26.8 L MCV 74 L MCH 24 L RDW 24.0 H Plt Count 621 H Lymph % (Auto) Jay # (Auto) Seg Neutrophils % Seg Neuts % (Manual) 85.0 H Lymphocytes % (Manual) 5.0 L Monocytes % (Manual) 8.0 H Eosinophils % (Manual) Seg Neutrophils # Seg Neutrophils # Man 15.2 H Lymphocytes # (Manual) 0.9 L Monocytes # (Manual) 1.4 H Eosinophils # (Manual) PT INR APTT Sodium Potassium Chloride Carbon Dioxide BUN Creatinine Glucose POC Glucose Lactic Acid 3.30 H* Calcium Phosphorus Magnesium Direct Bilirubin Alkaline Phosphatase Troponin T 0.271 H* NT-Pro-B Natriuret Pep Total Protein Albumin HDL Cholesterol 39 L Urine pH Urine WBC (Auto) Urine Creatinine Crossmatch 05/22/20 05/22/20 05/22/20 09:10 09:10 09:32 WBC RBC Hgb Hct MCV MCH RDW Plt Count Lymph % (Auto) Jay # (Auto) Seg Neutrophils % Seg Neuts % (Manual) Lymphocytes % (Manual) Monocytes % (Manual) Eosinophils % (Manual) Seg Neutrophils # Seg Neutrophils # Man Lymphocytes # (Manual) Monocytes # (Manual) Eosinophils # (Manual) PT 15.5 H INR 1.25 H APTT 47.6 H Sodium 136 L Potassium Chloride 97.2 L Carbon Dioxide BUN 36 H Creatinine 3.8 H Glucose 133 H POC Glucose Lactic Acid Calcium 7.8 L Phosphorus Magnesium Direct Bilirubin 0.3 H Alkaline Phosphatase 248 H Troponin T NT-Pro-B Natriuret Pep 1448 H Total Protein Albumin 2.8 L HDL Cholesterol Urine pH 8.0 H Urine WBC (Auto) > 182.0 H Urine Creatinine Crossmatch 05/22/20 05/22/20 05/22/20 09:49 11:42 19:48 WBC RBC Hgb Hct MCV MCH RDW Plt Count Lymph % (Auto) Jay # (Auto) Seg Neutrophils % Seg Neuts % (Manual) Lymphocytes % (Manual) Monocytes % (Manual) Eosinophils % (Manual) Seg Neutrophils # Seg Neutrophils # Man Lymphocytes # (Manual) Monocytes # (Manual) Eosinophils # (Manual) PT INR APTT Sodium Potassium Chloride Carbon Dioxide BUN Creatinine Glucose POC Glucose Lactic Acid 3.70 H* 2.10 H* Calcium Phosphorus Magnesium Direct Bilirubin Alkaline Phosphatase Troponin T NT-Pro-B Natriuret Pep Total Protein Albumin HDL Cholesterol Urine pH Urine WBC (Auto) Urine Creatinine 48.1 H Crossmatch 05/22/20 05/23/20 05/23/20 23:27 05:05 05:05 WBC 20.3 H RBC 2.73 L Hgb 6.6 L Hct 20.8 L D MCV 76 L MCH 24 L RDW 23.9 H Plt Count 546 H Lymph % (Auto) 11.5 L Jay # (Auto) 1.2 H Seg Neutrophils % 81.5 H Seg Neuts % (Manual) Lymphocytes % (Manual) Monocytes % (Manual) Eosinophils % (Manual) Seg Neutrophils # 16.5 H Seg Neutrophils # Man Lymphocytes # (Manual) Monocytes # (Manual) Eosinophils # (Manual) PT INR APTT Sodium Potassium Chloride 112.5 H Carbon Dioxide 20 L BUN 26 H Creatinine 1.8 H D Glucose 135 H POC Glucose 124 H Lactic Acid Calcium 6.8 L Phosphorus Magnesium Direct Bilirubin Alkaline Phosphatase Troponin T NT-Pro-B Natriuret Pep Total Protein Albumin HDL Cholesterol Urine pH Urine WBC (Auto) Urine Creatinine Crossmatch 05/23/20 05/23/20 05/23/20 05:38 06:10 11:33 WBC RBC Hgb Hct MCV MCH RDW Plt Count Lymph % (Auto) Jay # (Auto) Seg Neutrophils % Seg Neuts % (Manual) Lymphocytes % (Manual) Monocytes % (Manual) Eosinophils % (Manual) Seg Neutrophils # Seg Neutrophils # Man Lymphocytes # (Manual) Monocytes # (Manual) Eosinophils # (Manual) PT INR APTT Sodium Potassium Chloride Carbon Dioxide BUN Creatinine Glucose POC Glucose 112 H 128 H Lactic Acid Calcium Phosphorus Magnesium Direct Bilirubin Alkaline Phosphatase Troponin T NT-Pro-B Natriuret Pep Total Protein Albumin HDL Cholesterol Urine pH Urine WBC (Auto) Urine Creatinine Crossmatch See Detail 05/23/20 05/23/20 05/23/20 14:45 17:49 23:34 WBC RBC Hgb 8.4 L Hct 26.4 L MCV MCH RDW Plt Count Lymph % (Auto) Jay # (Auto) Seg Neutrophils % Seg Neuts % (Manual) Lymphocytes % (Manual) Monocytes % (Manual) Eosinophils % (Manual) Seg Neutrophils # Seg Neutrophils # Man Lymphocytes # (Manual) Monocytes # (Manual) Eosinophils # (Manual) PT INR APTT Sodium Potassium Chloride Carbon Dioxide BUN Creatinine Glucose POC Glucose 112 H 116 H Lactic Acid Calcium Phosphorus Magnesium Direct Bilirubin Alkaline Phosphatase Troponin T NT-Pro-B Natriuret Pep Total Protein Albumin HDL Cholesterol Urine pH Urine WBC (Auto) Urine Creatinine Crossmatch 05/24/20 05/24/20 05/25/20 05:45 05:45 05:00 WBC 18.4 H RBC 3.35 L Hgb 8.6 L Hct 26.5 L MCV 79 L MCH 26 L RDW 23.9 H Plt Count Lymph % (Auto) Jay # (Auto) Seg Neutrophils % Seg Neuts % (Manual) 81.0 H Lymphocytes % (Manual) 12.0 L Monocytes % (Manual) Eosinophils % (Manual) Seg Neutrophils # Seg Neutrophils # Man 14.9 H Lymphocytes # (Manual) Monocytes # (Manual) 1.3 H Eosinophils # (Manual) PT INR APTT Sodium Potassium 3.1 L Chloride 109.5 H Carbon Dioxide BUN Creatinine Glucose 111 H POC Glucose Lactic Acid Calcium 6.8 L 7.2 L Phosphorus Magnesium 1.00 L Direct Bilirubin Alkaline Phosphatase Troponin T NT-Pro-B Natriuret Pep Total Protein Albumin HDL Cholesterol Urine pH Urine WBC (Auto) Urine Creatinine Crossmatch 05/25/20 05/25/20 05/25/20 09:34 11:31 18:25 WBC 12.7 H RBC 3.14 L Hgb 8.0 L Hct 24.6 L MCV 78 L MCH 25 L RDW 25.0 H Plt Count Lymph % (Auto) Jay # (Auto) Seg Neutrophils % Seg Neuts % (Manual) 94.0 H Lymphocytes % (Manual) 3.0 L Monocytes % (Manual) Eosinophils % (Manual) Seg Neutrophils # Seg Neutrophils # Man 11.9 H Lymphocytes # (Manual) 0.4 L Monocytes # (Manual) Eosinophils # (Manual) PT INR APTT Sodium Potassium Chloride Carbon Dioxide BUN Creatinine Glucose POC Glucose 63 L 57 L Lactic Acid Calcium Phosphorus Magnesium Direct Bilirubin Alkaline Phosphatase Troponin T NT-Pro-B Natriuret Pep Total Protein Albumin HDL Cholesterol Urine pH Urine WBC (Auto) Urine Creatinine Crossmatch 05/25/20 05/26/20 05/26/20 23:44 04:16 04:16 WBC RBC 3.07 L Hgb 8.0 L Hct 24.2 L MCV 79 L MCH 26 L RDW 24.8 H Plt Count Lymph % (Auto) Jay # (Auto) Seg Neutrophils % Seg Neuts % (Manual) 85.0 H Lymphocytes % (Manual) 8.0 L Monocytes % (Manual) Eosinophils % (Manual) 5.0 H Seg Neutrophils # Seg Neutrophils # Man 7.9 H Lymphocytes # (Manual) 0.7 L Monocytes # (Manual) Eosinophils # (Manual) 0.5 H PT INR APTT Sodium Potassium 3.4 L Chloride 108.6 H Carbon Dioxide BUN Creatinine 0.7 L Glucose 101 H POC Glucose 52 L Lactic Acid Calcium 7.7 L Phosphorus Magnesium Direct Bilirubin Alkaline Phosphatase Troponin T NT-Pro-B Natriuret Pep Total Protein Albumin HDL Cholesterol Urine pH Urine WBC (Auto) Urine Creatinine Crossmatch 05/26/20 05/27/20 05/27/20 12:41 00:45 06:23 WBC RBC Hgb Hct MCV MCH RDW Plt Count Lymph % (Auto) Jay # (Auto) Seg Neutrophils % Seg Neuts % (Manual) Lymphocytes % (Manual) Monocytes % (Manual) Eosinophils % (Manual) Seg Neutrophils # Seg Neutrophils # Man Lymphocytes # (Manual) Monocytes # (Manual) Eosinophils # (Manual) PT INR APTT Sodium 135 L Potassium 3.4 L Chloride Carbon Dioxide BUN Creatinine Glucose POC Glucose 64 L Lactic Acid Calcium 7.4 L Phosphorus Magnesium Direct Bilirubin Alkaline Phosphatase 566 H Troponin T NT-Pro-B Natriuret Pep Total Protein 5.3 L D Albumin 1.9 L HDL Cholesterol Urine pH Urine WBC (Auto) Urine Creatinine Crossmatch 05/28/20 05/29/20 05/29/20 04:35 17:01 18:54 WBC RBC Hgb Hct MCV MCH RDW Plt Count Lymph % (Auto) Jay # (Auto) Seg Neutrophils % Seg Neuts % (Manual) Lymphocytes % (Manual) Monocytes % (Manual) Eosinophils % (Manual) Seg Neutrophils # Seg Neutrophils # Man Lymphocytes # (Manual) Monocytes # (Manual) Eosinophils # (Manual) PT INR APTT Sodium Potassium Chloride Carbon Dioxide BUN Creatinine 0.7 L Glucose POC Glucose 57 L 135 H Lactic Acid Calcium 7.7 L Phosphorus Magnesium Direct Bilirubin Alkaline Phosphatase Troponin T NT-Pro-B Natriuret Pep Total Protein Albumin HDL Cholesterol Urine pH Urine WBC (Auto) Urine Creatinine Crossmatch 05/30/20 05:42 WBC RBC Hgb Hct MCV MCH RDW Plt Count Lymph % (Auto) Jay # (Auto) Seg Neutrophils % Seg Neuts % (Manual) Lymphocytes % (Manual) Monocytes % (Manual) Eosinophils % (Manual) Seg Neutrophils # Seg Neutrophils # Man Lymphocytes # (Manual) Monocytes # (Manual) Eosinophils # (Manual) PT INR APTT Sodium Potassium 3.4 L Chloride Carbon Dioxide BUN 6 L Creatinine 0.6 L Glucose 105 H POC Glucose Lactic Acid Calcium 7.5 L Phosphorus 1.80 L Magnesium Direct Bilirubin Alkaline Phosphatase Troponin T NT-Pro-B Natriuret Pep Total Protein Albumin HDL Cholesterol Urine pH Urine WBC (Auto) Urine Creatinine Crossmatch Chest x-ray: report reviewed, image reviewed Additional Studies: CHEST 1 VIEW 05/22/2020 9:02 AM INDICATION / CLINICAL INFORMATION: sepsis. COMPARISON: 03/16/2020 FINDINGS: SUPPORT DEVICES: None. HEART / MEDIASTINUM: Stable. LUNGS / PLEURA: No confluent infiltrates or pleural effusions. No pneumothorax. ADDITIONAL FINDINGS: No significant additional findings. IMPRESSION: 1. No acute findings. No significant interval change since prior exam Allied health notes reviewed: nursing
[2020-05-31 06:28] LABS: Blood Urea Nitrogen 6 mg/dL (9-20); Calcium 7.5 mg/dL (8.4-10.2); Hemolysis Index 14
[2020-05-31 06:53] LABS: BUN/Creatinine Ratio 10
[2020-05-31] MEDS: ASPIRIN 81 MG TAB CHEW PO SCH (09:29)
[2020-05-31] MEDS: PANTOPRAZOLE 40 MG TAB PO SCH ×2 (09:29→21:50)
[2020-05-31] MEDS: CLOPIDOGREL 75 MG TAB PO SCH (09:29)
[2020-05-31] MEDS: HEPARIN 5,000 UNIT/1 ML VIAL SUB-Q SCH ×2 (09:30→21:51)
[2020-05-31] MEDS: DEXTROSE 5% IN WATER 1,000 ML IV SCH (10:29)
--- NOTE | 2020-05-31 10:41 | Progress Note ---
Assessment and Plan Assessment and plan: Sepsis Acute cystitis/UTI Cholecystitis. Inflammation seen on CT. Cholecystostomy tube in place. Metabolic acidosis Toxic metabolic encephalopathy Acute kidney injury/acute renal failure Hospital course: 05/23/2020 -Septic shock likely due to UTI, patient is on IV cefepime, IV fluid and pressor support. Critical care consulted -Acute renal failure, improved with IV fluids, nephrology consulted 05/24/2020 -Admitted for septic shock due to UTI, patient is on IV cefepime, IV fluids, pressor support, ID consulted. -Acute renal failure IV fluids and nephrology consult -Patient is saturating 100% on room air -Patient was alert 05/25/2020 -Patient is on IV cefepime and ID increase the dose. -Acute renal failure is improving -Patient had history of cholecystostomy tube placement and was seen by general surgery and order imaging study. -Patient is still on pressors for low blood pressure 05/27/2020 -Patient was admitted for septic shock and he is doing well. Continue with cefepime while he is here and can be discharged with po Levaquin to finish a total of 7 days course of antibiotics. He was evaluated by general surgery and imaging was done and no further work-up is needed. GI also saw the patient. Patient is stable for discharge Case management is working for placement. Patient's family does not want him to go back to the facility where he came from. 05/28/2020 patient is alert today able to make needs known at this particular time. Recently admitted for septic shock. Currently treated with cefepime while in house. Awaiting placement will change to Levaquin to complete 6 more days of antibiotics. Stable for discharge awaiting placement Case management. 05/29/2020. Patient doing well able to make all needs known no new concerns. Patient wants to know that he was doing well. No more in shock. Awaiting placement. Patient tolerated change to Levaquin well. Patient is not eating solid foods that well will change to pured diet and see how effective that may be. 05/30/2020. Patient resting comfortably no acute distress. Hospital course uncomplicated over p.m. Patient doing better with change in the consistency of diet. Currently awaiting placement. 05/31/2020. Etiology of acute kidney injury secondary to vasomotor nephropathy/ATN in the setting of sepsis/septic shock. CT abdomen negative for hydronephrosis. ID recommended cefepime 2 g every 8 hours with completion total of 7 days. Case management working on placement. History Interval history: No new issues overnight Hospitalist Physical - Constitutional Vitals: Temp Pulse Resp BP Pulse Ox 98.4 F 66 18 130/63 85 05/31/20 08:39 05/31/20 03:24 05/31/20 08:39 05/31/20 08:39 05/31/20 03:24 General appearance: Present: no acute distress, well-nourished - EENT Eyes: Present: PERRL, EOM intact ENT: hearing intact, clear oral mucosa, dentition normal - Neck Neck: Present: supple, normal ROM - Respiratory Respiratory effort: normal Respiratory: bilateral: CTA - Cardiovascular Rhythm: regular Heart Sounds: Present: S1 & S2. Absent: gallop, rub - Extremities Extremities: no ischemia, No edema, Full ROM - Abdominal General gastrointestinal: soft, non-tender, non-distended, normal bowel sounds - Integumentary Integumentary: Present: clear, warm, dry - Neurologic Neurologic: CNII-XII intact, moves all extremities HEART Score - HEART Score Troponin: Troponin T 0.271 ng/mL (0.00-0.029) H* 05/22/20 09:10 Results - Labs CBC & Chem 7: 05/26/20 04:16 05/31/20 05:37 Labs: Laboratory Last Values WBC 9.3 K/mm3 (4.5-11.0) 05/26/20 04:16 RBC 3.07 M/mm3 (3.65-5.03) L 05/26/20 04:16 Hgb 8.0 gm/dl (11.8-15.2) L 05/26/20 04:16 Hct 24.2 % (35.5-45.6) L 05/26/20 04:16 MCV 79 fl (84-94) L 05/26/20 04:16 MCH 26 pg (28-32) L 05/26/20 04:16 MCHC 33 % (32-34) 05/26/20 04:16 RDW 24.8 % (13.2-15.2) H 05/26/20 04:16 Plt Count 260 K/mm3 (140-440) 05/26/20 04:16 Lymph % (Auto) 11.5 % (13.4-35.0) L 05/23/20 05:05 Dickson % (Auto) 5.8 % (0.0-7.3) 05/23/20 05:05 Eos % (Auto) 0.8 % (0.0-4.3) 05/23/20 05:05 Baso % (Auto) 0.4 % (0.0-1.8) 05/23/20 05:05 Lymph # (Auto) 2.3 K/mm3 (1.2-5.4) 05/23/20 05:05 Dickson # (Auto) 1.2 K/mm3 (0.0-0.8) H 05/23/20 05:05 Eos # (Auto) 0.2 K/mm3 (0.0-0.4) 05/23/20 05:05 Baso # (Auto) 0.1 K/mm3 (0.0-0.1) 05/23/20 05:05 Add Manual Diff Complete 05/26/20 04:16 Total Counted 100 05/26/20 04:16 Seg Neutrophils % 81.5 % (40.0-70.0) H 05/23/20 05:05 Seg Neuts % (Manual) 85.0 % (40.0-70.0) H 05/26/20 04:16 Band Neutrophils % 2.0 % 05/22/20 09:10 Lymphocytes % (Manual) 8.0 % (13.4-35.0) L 05/26/20 04:16 Monocytes % (Manual) 2.0 % (0.0-7.3) 05/26/20 04:16 Eosinophils % (Manual) 5.0 % (0.0-4.3) H 05/26/20 04:16 Myelocytes % 1.0 % 05/25/20 09:34 Promyelocytes % 0 % 05/25/20 09:34 Nucleated RBC % Not Reportable 05/26/20 04:16 Seg Neutrophils # 16.5 K/mm3 (1.8-7.7) H 05/23/20 05:05 Seg Neutrophils # Man 7.9 K/mm3 (1.8-7.7) H 05/26/20 04:16 Band Neutrophils # 0.0 K/mm3 05/26/20 04:16 Lymphocytes # (Manual) 0.7 K/mm3 (1.2-5.4) L 05/26/20 04:16 Abs React Lymphs (Man) 0.0 K/mm3 05/26/20 04:16 Monocytes # (Manual) 0.2 K/mm3 (0.0-0.8) 05/26/20 04:16 Eosinophils # (Manual) 0.5 K/mm3 (0.0-0.4) H 05/26/20 04:16 Basophils # (Manual) 0.0 K/mm3 (0.0-0.1) 05/26/20 04:16 Metamyelocytes # 0.0 K/mm3 05/26/20 04:16 Myelocytes # 0.0 K/mm3 05/26/20 04:16 Promyelocytes # 0.0 K/mm3 05/26/20 04:16 Blast Cells # 0.0 K/mm3 05/26/20 04:16 WBC Morphology Not Reportable 05/26/20 04:16 Hypersegmented Neuts Not Reportable 05/26/20 04:16 Hyposegmented Neuts Not Reportable 05/26/20 04:16 Hypogranular Neuts Not Reportable 05/26/20 04:16 Smudge Cells Not Reportable 05/26/20 04:16 Toxic Granulation Not Reportable 05/26/20 04:16 Toxic Vacuolation Not Reportable 05/26/20 04:16 Dohle Bodies Not Reportable 05/26/20 04:16 Pelger-Huet Anomaly Not Reportable 05/26/20 04:16 Lynne Rods Not Reportable 05/26/20 04:16 Platelet Estimate Consistent w auto 05/26/20 04:16 Clumped Platelets Not Reportable 05/26/20 04:16 Plt Clumps, EDTA Not Reportable 05/26/20 04:16 Large Platelets Not Reportable 05/26/20 04:16 Giant Platelets Not Reportable 05/26/20 04:16 Platelet Satelliting Not Reportable 05/26/20 04:16 Plt Morphology Comment Not Reportable 05/26/20 04:16 RBC Morphology Not Reportable 05/26/20 04:16 Dimorphic RBCs Not Reportable 05/26/20 04:16 Polychromasia Not Reportable 05/26/20 04:16 Hypochromasia Few 05/26/20 04:16 Poikilocytosis Not Reportable 05/26/20 04:16 Anisocytosis 2+ 05/26/20 04:16 Microcytosis Not Reportable 05/26/20 04:16 Macrocytosis Not Reportable 05/26/20 04:16 Spherocytes Not Reportable 05/26/20 04:16 Pappenheimer Bodies Not Reportable 05/26/20 04:16 Sickle Cells Not Reportable 05/26/20 04:16 Target Cells Not Reportable 05/26/20 04:16 Tear Drop Cells Not Reportable 05/26/20 04:16 Ovalocytes Not Reportable 05/26/20 04:16 Helmet Cells Not Reportable 05/26/20 04:16 [place] Bodies Not Reportable 05/26/20 04:16 [place] Rings Not Reportable 05/26/20 04:16 [place] Cells Not Reportable 05/26/20 04:16 Bite Cells Not Reportable 05/26/20 04:16 Crenated Cell Not Reportable 05/26/20 04:16 Elliptocytes Few 05/26/20 04:16 Acanthocytes (Spur) Not Reportable 05/26/20 04:16 Rouleaux Not Reportable 05/26/20 04:16 Hemoglobin C Crystals Not Reportable 05/26/20 04:16 Schistocytes Rare 05/26/20 04:16 Malaria parasites Not Reportable 05/26/20 04:16 [place] Bodies Not Reportable 05/26/20 04:16 Hem Pathologist Commnt No 05/26/20 04:16 PT 15.5 Sec. (12.2-14.9) H 05/22/20 09:10 INR 1.25 (0.87-1.13) H 05/22/20 09:10 APTT 47.6 Sec. (24.2-36.6) H 05/22/20 09:10 Sodium 136 mmol/L (137-145) L 05/31/20 05:37 Potassium 3.8 mmol/L (3.6-5.0) 05/31/20 05:37 Chloride 101.0 mmol/L (98-107) 05/31/20 05:37 Carbon Dioxide 23 mmol/L (22-30) 05/31/20 05:37 Anion Gap 16 mmol/L 05/31/20 05:37 BUN 6 mg/dL (9-20) L 05/31/20 05:37 Creatinine 0.6 mg/dL (0.8-1.3) L 05/31/20 05:37 Estimated GFR > 60 ml/min 05/31/20 05:37 BUN/Creatinine Ratio 10 % 05/31/20 05:37 Glucose 98 mg/dL (75-100) 05/31/20 05:37 POC Glucose 79 mg/dL (70-105) 05/31/20 05:53 Lactic Acid 0.90 mmol/L (0.7-2.0) 05/22/20 23:25 Calcium 7.5 mg/dL (8.4-10.2) L 05/31/20 05:37 Phosphorus 3.20 mg/dL (2.5-4.5) D 05/31/20 05:37 Magnesium 2.30 mg/dL (1.7-2.3) 05/25/20 05:00 Total Bilirubin 0.30 mg/dL (0.1-1.2) 05/27/20 00:45 Direct Bilirubin < 0.2 mg/dL (0-0.2) 05/27/20 00:45 Indirect Bilirubin 0.1 mg/dL 05/27/20 00:45 AST 17 units/L (5-40) 05/27/20 00:45 ALT 9 units/L (7-56) 05/27/20 00:45 Alkaline Phosphatase 566 units/L (35-129) H 05/27/20 00:45 Troponin T 0.271 ng/mL (0.00-0.029) H* 05/22/20 09:10 NT-Pro-B Natriuret Pep 1448 pg/mL (0-900) H 05/22/20 09:10 Total Protein 5.3 g/dL (6.3-8.2) L D 05/27/20 00:45 Albumin 1.9 g/dL (3.9-5) L 05/27/20 00:45 Albumin/Globulin Ratio 0.6 % 05/27/20 00:45 Triglycerides 143 mg/dL (2-149) 05/22/20 09:10 Cholesterol 118 mg/dL (50-199) 05/22/20 09:10 LDL Cholesterol Direct 55 mg/dL (50-130) 05/22/20 09:10 HDL Cholesterol 39 mg/dL (40-59) L 05/22/20 09:10 Cholesterol/HDL Ratio 3.02 % 05/22/20 09:10 Urine Color [place] (Yellow) 05/22/20 09:32 Urine Turbidity Cloudy (Clear) 05/22/20 09:32 Urine pH 8.0 (5.0-7.0) H 05/22/20 09:32 Ur Specific [place] 1.010 (1.003-1.030) 05/22/20 09:32 Urine Protein >500 mg/dL (Negative) 05/22/20 09:32 Urine Glucose (UA) Neg mg/dL (Negative) 05/22/20 09:32 Urine Ketones Neg mg/dL (Negative) 05/22/20 09:32 Urine Blood Sm (Negative) 05/22/20 09:32 Urine Nitrite Neg (Negative) 05/22/20 09:32 Urine Bilirubin Neg (Negative) 05/22/20 09:32 Urine Urobilinogen < 2.0 mg/dL (<2.0) 05/22/20 09:32 Ur Leukocyte Esterase Mod (Negative) 05/22/20 09:32 Urine WBC (Auto) > 182.0 /HPF (0.0-6.0) H 05/22/20 09:32 Urine RBC (Auto) 9.0 /HPF (0.0-6.0) 05/22/20 09:32 U Epithel Cells (Auto) 1.0 /HPF (0-13.0) 05/22/20 09:32 Urine WBC Clumps 2+ /HPF 05/22/20 09:32 Urine Mucus Few /HPF 05/22/20 09:32 Urine Creatinine 48.1 mg/dL (0.1-20.0) H 05/22/20 09:49 Urine Sodium 130 mmol/L 05/22/20 09:49 Coronavirus (PCR) Negative (Negative) 05/28/20 Unknown Blood Type A POSITIVE 05/23/20 06:10 Antibody Screen Negative 05/23/20 06:10 Crossmatch See Detail 05/23/20 06:10 - Diagnostic Impressions Diagnostic Impressions: Echocardiogram 02/21/21 14:25 Transthoracic Echocardiogram Indication: Cardiomyopathy BP: 97/48 HR: 84 Conclusions *Global left ventricular systolic function is normal. *The estimated ejection fraction is 55-60%. *There is no evidence of aortic regurgitation. *There is no evidence of mitral regurgitation. *There is mild tricuspid regurgitation. *The right ventricular systolic pressure is calculated at 31 mmHg. Findings Left Ventricle: The left ventricular chamber size is normal. Global left ventricular wall motion and contractility are within normal limits. Global left ventricular systolic function is normal. The estimated ejection fraction is 55-60%. Abnormal left ventricular diastolic filling is observed, consistent with impaired relaxation. Right Ventricle: The right ventricle is not well visualized. Aortic Valve: Mild aortic leaflet calcification is visualized. There is no evidence of aortic regurgitation. Mitral Valve: The mitral valve leaflets are mildly thickened. There is no evidence of mitral regurgitation. Tricuspid Valve: The tricuspid valve leaflets are normal. There is mild tricuspid regurgitation. The right ventricular systolic pressure is calculated at 31 mmHg. Pulmonic Valve: The pulmonic valve is not well visualized. Pericardium: There is no pericardial effusion. Aorta: The aorta appears normal. Venous: The inferior vena cava is not visualized. Measurements Chambers 2D Name Value Normal Range IVSd (2D) 0.93 cm (0.6 - 1.1) LVPWd (2D) 0.88 cm (0.6 - 1.1) LVIDd (2D) 4.14 cm (3.7 - 5.6) LVIDs (2D) 2.84 cm (2 - 3.8) LV FS (2D) 31.49 % - EF Teichholz (2D) 59.83 % - Ao root diameter (2D) 2.95 cm (2 - 3.7) Volumes/Mass Name Value Normal Range LA ESV SP 4CH (A/L) 18.27 ml - LA ESV SP 2CH (A/L) 16.69 ml - LA ESV BP (A/L) 20.49 ml - LA ESV BP (A/L) index 9.95 ml/m2 - LA ESV SP 4CH (MOD) 16.89 ml - LA ESV SP 2CH (MOD) 16.63 ml - LA ESV BP (MOD) 19.39 ml - LA ESV BP (MOD) index 9.41 ml/m2 - Diastolic/Systolic Function Name Value Normal Range MV E-wave Vmax 0.69 m/sec - MV deceleration time 231.55 msec - MV A-wave Vmax 0.85 m/sec - MV E:A ratio 0.81 ratio - Aortic Valve Name Value Normal Range AV Vmax 1.43 m/sec - AV VTI 26.37 cm - AV peak gradient 8.16 mmHg - AV mean gradient 5.15 mmHg - LVOT diameter 2.39 cm - LVOT Vmax 0.94 m/sec - LVOT VTI 17.92 cm - LVOT peak gradient 3.5 mmHg - LVOT mean gradient 2.07 mmHg - SV LVOT 80.13 ml - NURIA (continuity Vmax) 2.93 cm2 - NURIA (continuity VTI) 3.04 cm2 - Tricuspid Valve Name Value Normal Range TR Vmax 2.63 m/sec - TR peak gradient 28 mmHg - RAP 3 mmHg - RVSP 31 mmHg - Pulmonic Valve/Qp:Qs Name Value Normal Range PV acceleration time 95.15 msec - Engel/IV: Voiding Method Indwelling Catheter Active Medications - Current Medications Current Medications: Generic Name Dose Route Start Last Admin Trade Name Freq PRN Reason Stop Dose Admin Acetaminophen 650 mg 05/22/20 12:31 Acetaminophen 325 Mg Tab PO Q6H PRN Pain, Mild (1-3) Albuterol 2.5 mg 05/22/20 12:14 Albuterol 2.5 Mg/3 Ml Nebu IH Q3HRT PRN Shortness Of Breath Aspirin 81 mg 05/23/20 10:00 05/31/20 09:29 Aspirin 81 Mg Tab Chew PO 81 mg QDAY VANE Administration Atorvastatin Calcium 80 mg 05/22/20 22:00 05/30/20 22:34 Atorvastatin 40 Mg Tab PO 80 mg QHS VANE Administration Clopidogrel Bisulfate 75 mg 05/23/20 10:00 05/31/20 09:29 Clopidogrel 75 Mg Tab PO 75 mg QDAY VANE Administration Dextrose 25 ml 05/25/20 00:13 05/30/20 11:51 Dextrose 50% In Water (25gm) 50 Ml Syringe IV 20 ml Q30MIN PRN Administration Hypoglycemia Protocol Heparin Sodium (Porcine) 5,000 unit 05/22/20 22:00 05/31/20 09:30 Heparin 5,000 Unit/1 Ml Vial SUB-Q 5,000 unit Q12HR VANE Administration Hydromorphone HCl 0.25 mg 05/22/20 12:31 05/30/20 06:02 Hydromorphone 1 Mg/1 Ml Inj IV 0.25 mg Q4H PRN Administration Pain, Moderate (4-6) Dextrose 1,000 mls @ 75 mls/hr 05/26/20 01:00 05/31/20 10:29 D5w IV 75 mls/hr DIRECT VANE Administration Pantoprazole Sodium 40 mg 05/22/20 22:00 05/31/20 09:29 Pantoprazole 40 Mg Tab PO 40 mg BID VANE Administration Sodium Chloride 10 ml 05/22/20 22:00 05/31/20 09:29 Sodium Chloride 0.9% 10 Ml Flush Syringe IV 10 ml BID VANE Administration Sodium Chloride 10 ml 05/22/20 12:14 Sodium Chloride 0.9% 10 Ml Flush Syringe IV PRN PRN LINE FLUSH Nutrition/Malnutrition Assess - Dietary Evaluation Nutrition/Malnutrition Findings: Nutrition Notes Start: 05/27/20 11:22 Freq: Status: Active Protocol: Document 05/30/20 09:04 CW (Rec: 05/30/20 09:14 CW [id number]) Nutrition Notes Initial or Follow up Reassessment Current Diagnosis Coronary Artery Disease, Decubitus(Pressure Ulcer), Sepsis,Hypertension, Respiratory Failure, Hyperlipidemia Other Pertinent Diagnosis Metabolic Encephalopathy, s/p Cholecystostomy, Dementia, UTI Current Diet Pureed Labs/Tests BG 105 K 3.4 Pertinent Medications D50w at 75ml/h KPO3 in NS at 83 ml/h Height 5 ft 9 in Weight 82.7 kg [place] Body Weight (kg) 72.72 BMI 26.9 Weight change and time frame weight change noted. Weight Status Appropriate Subjective/Other Information F/U for PO intakes and ONS tolerance. Pt states no appetite and does not want to eat. Pt also refused diet over the weekend as well. RN states pt ate neglible portion of meal this morning. Spoke to nurse about possible feeding plans, TF recommended if pt continues to refuse meals. Unable to fully understand/obtain food preferences from pt. One ONS noted in room. No build up of ONS, indicates tolerance with them. [employer]ET[employer]E [employer] OPERATOR recommend mechanical soft diet but pt is recieving pureed diet at this moment for safety. Percent of energy/protein needs met: 0%/0% Burn Absent Trauma Absent GI Symptoms None Difficulty In Chewing Skin Integrity/Comment Stage II Pressure Ulcer Current % PO Poor (25-49%) Minimum of two criteria Yes Interpretation of Weight Loss (severe) >5% in 1 month Body Fat Depletion Mild depletion (non-severe) Fluid Accumulation Mild (non-severe) Reduced 2Nd [place] Strength N/A (non-severe) #2 Nutrition Diagnosis Increased nutrient needs ( specify in comment below) Diagnosis Progress(for reassessment Continues documentation) #1 Nutrition Diagnosis Malnutrition Diagnosis Progress(for reassessment Continues documentation) Is patient on ventilator? No Is Patient Ambulatory and/or Out of Bed No REE-([place]ag[place]-St. Jeor-confined to bed) 1892.676 Kcal/Kg value to use for calculation 26 Approximate Energy Requirements Using 2150 kcal/Kg Calculation Used for Recommendations Kcal/kg Additional Notes PRO needs: 98-122g (1.2-1.5 g/ kg) Fluid needs: 1 mL/kcal or per MD Nutrition Intervention Change Diet Order: Continue Pureed Diet Add Supplement/Snack (indicate name/kcal Ensure Enlive BID /protein ) Provides kCal: 700 Provides Protein (gm) 40 Goal #1 Wound healing Goal #2 Meet at least 80% of estimated energy and protein needs via diet and ONS Anticipated Discharge Needs: Cardiac Pureed Diet Follow-Up By: 06/01/20 Additional Comments F/U for POC, PO intakes, and ONS tolerance
--- NOTE | 2020-05-31 11:50 | Progress Note ---
Assessment and Plan Patient sleeping. Resting on room air.O2 saturation 96% on room air. No acute respiratory distress. Patient afebrile. No leukocytosis. Chest xray done 05/22/20 reported no acute findings. Patient is on Albuterol inhaler, S/C Heparin, Protonix. - Patient Problems (1) Hypoxia Current Visit: No Status: Acute Plan to address problem: Improved. O2 saturation 96% on room air. (2) Septic shock Current Visit: Yes Status: Acute Plan to address problem: Improved. Patient treated with cefepime. (3) Acute renal failure Current Visit: Yes Status: Acute Qualifiers: Acute renal failure type: with acute tubular necrosis Qualified Code(s): N17.0 - Acute kidney failure with tubular necrosis Plan to address problem: Management as per nephrology. (4) Toxic metabolic encephalopathy Current Visit: Yes Status: Acute Plan to address problem: Management as per primary care. (5) UTI (urinary tract infection) Current Visit: Yes Status: Acute Qualifiers: Encounter type: initial encounter Plan to address problem: Patient was on cefepime. (6) Acute cholecystitis Current Visit: No Status: Acute Plan to address problem: S/P percutaneous cholecystotomy drain placement. Management as per gastroenterology. (7) CVA (cerebral vascular accident) Current Visit: No Status: Acute Plan to address problem: Management as per primary care. (8) Hypertension Current Visit: No Status: Acute Plan to address problem: Management as per primary care. Subjective Date of service: 05/31/20 Principal diagnosis: Septic shock; Metabolic Acidosis; Ac, Toxic metabolic encephalopathy; EBENEZER Interval history: Patient sleeping. Resting on room air.O2 saturation 96% on room air. No acute respiratory distress. Patient afebrile. No leukocytosis. Chest xray done 05/22/20 reported no acute findings. Patient is on Albuterol inhaler, S/C Heparin, Protonix. Objective Vital Signs - 12hr 05/30/20 05/31/20 05/31/20 23:58 03:24 08:39 Temperature 98.1 F 98.4 F Pulse Rate 66 Respiratory 18 18 Rate Blood Pressure 137/68 130/63 O2 Sat by Pulse 94 85 Oximetry Constitutional: no acute distress, asleep Eyes: non-icteric ENT: oropharynx moist Neck: supple, no lymphadenopathy, no JVD Effort: normal Ascultation: Bilateral: clear Percussion: Bilateral: not dull Cardiovascular: regular rate and rhythm Gastrointestinal: normoactive bowel sounds, soft, tender (mild, LLQ, RUQ), non- distended (protuberant'), other (RUQ J-P drain) Integumentary: normal Extremities: no cyanosis, no edema, pink and warm, pulses normal Neurologic: non-focal exam (grossly), pupils equal and round, CN II-XII normal, other (slow to respond) Psychiatric: other (flat affect) CBC and BMP: 05/26/20 04:16 05/31/20 05:37 ABG, PT/INR, D-dimer: PT/INR, D-dimer PT 15.5 Sec. (12.2-14.9) H 05/22/20 09:10 INR 1.25 (0.87-1.13) H 05/22/20 09:10 Abnormal lab findings: Abnormal Labs 05/22/20 05/22/20 05/22/20 09:10 09:10 09:10 WBC 17.9 H RBC 3.60 L Hgb 8.7 L Hct 26.8 L MCV 74 L MCH 24 L RDW 24.0 H Plt Count 621 H Lymph % (Auto) Evangeline # (Auto) Seg Neutrophils % Seg Neuts % (Manual) 85.0 H Lymphocytes % (Manual) 5.0 L Monocytes % (Manual) 8.0 H Eosinophils % (Manual) Seg Neutrophils # Seg Neutrophils # Man 15.2 H Lymphocytes # (Manual) 0.9 L Monocytes # (Manual) 1.4 H Eosinophils # (Manual) PT INR APTT Sodium Potassium Chloride Carbon Dioxide BUN Creatinine Glucose POC Glucose Lactic Acid 3.30 H* Calcium Phosphorus Magnesium Direct Bilirubin Alkaline Phosphatase Troponin T 0.271 H* NT-Pro-B Natriuret Pep Total Protein Albumin HDL Cholesterol 39 L Urine pH Urine WBC (Auto) Urine Creatinine Crossmatch 05/22/20 05/22/20 05/22/20 09:10 09:10 09:32 WBC RBC Hgb Hct MCV MCH RDW Plt Count Lymph % (Auto) Evangeline # (Auto) Seg Neutrophils % Seg Neuts % (Manual) Lymphocytes % (Manual) Monocytes % (Manual) Eosinophils % (Manual) Seg Neutrophils # Seg Neutrophils # Man Lymphocytes # (Manual) Monocytes # (Manual) Eosinophils # (Manual) PT 15.5 H INR 1.25 H APTT 47.6 H Sodium 136 L Potassium Chloride 97.2 L Carbon Dioxide BUN 36 H Creatinine 3.8 H Glucose 133 H POC Glucose Lactic Acid Calcium 7.8 L Phosphorus Magnesium Direct Bilirubin 0.3 H Alkaline Phosphatase 248 H Troponin T NT-Pro-B Natriuret Pep 1448 H Total Protein Albumin 2.8 L HDL Cholesterol Urine pH 8.0 H Urine WBC (Auto) > 182.0 H Urine Creatinine Crossmatch 05/22/20 05/22/20 05/22/20 09:49 11:42 19:48 WBC RBC Hgb Hct MCV MCH RDW Plt Count Lymph % (Auto) Evangeline # (Auto) Seg Neutrophils % Seg Neuts % (Manual) Lymphocytes % (Manual) Monocytes % (Manual) Eosinophils % (Manual) Seg Neutrophils # Seg Neutrophils # Man Lymphocytes # (Manual) Monocytes # (Manual) Eosinophils # (Manual) PT INR APTT Sodium Potassium Chloride Carbon Dioxide BUN Creatinine Glucose POC Glucose Lactic Acid 3.70 H* 2.10 H* Calcium Phosphorus Magnesium Direct Bilirubin Alkaline Phosphatase Troponin T NT-Pro-B Natriuret Pep Total Protein Albumin HDL Cholesterol Urine pH Urine WBC (Auto) Urine Creatinine 48.1 H Crossmatch 05/22/20 05/23/20 05/23/20 23:27 05:05 05:05 WBC 20.3 H RBC 2.73 L Hgb 6.6 L Hct 20.8 L D MCV 76 L MCH 24 L RDW 23.9 H Plt Count 546 H Lymph % (Auto) 11.5 L Evangeline # (Auto) 1.2 H Seg Neutrophils % 81.5 H Seg Neuts % (Manual) Lymphocytes % (Manual) Monocytes % (Manual) Eosinophils % (Manual) Seg Neutrophils # 16.5 H Seg Neutrophils # Man Lymphocytes # (Manual) Monocytes # (Manual) Eosinophils # (Manual) PT INR APTT Sodium Potassium Chloride 112.5 H Carbon Dioxide 20 L BUN 26 H Creatinine 1.8 H D Glucose 135 H POC Glucose 124 H Lactic Acid Calcium 6.8 L Phosphorus Magnesium Direct Bilirubin Alkaline Phosphatase Troponin T NT-Pro-B Natriuret Pep Total Protein Albumin HDL Cholesterol Urine pH Urine WBC (Auto) Urine Creatinine Crossmatch 05/23/20 05/23/20 05/23/20 05:38 06:10 11:33 WBC RBC Hgb Hct MCV MCH RDW Plt Count Lymph % (Auto) Evangeline # (Auto) Seg Neutrophils % Seg Neuts % (Manual) Lymphocytes % (Manual) Monocytes % (Manual) Eosinophils % (Manual) Seg Neutrophils # Seg Neutrophils # Man Lymphocytes # (Manual) Monocytes # (Manual) Eosinophils # (Manual) PT INR APTT Sodium Potassium Chloride Carbon Dioxide BUN Creatinine Glucose POC Glucose 112 H 128 H Lactic Acid Calcium Phosphorus Magnesium Direct Bilirubin Alkaline Phosphatase Troponin T NT-Pro-B Natriuret Pep Total Protein Albumin HDL Cholesterol Urine pH Urine WBC (Auto) Urine Creatinine Crossmatch See Detail 05/23/20 05/23/20 05/23/20 14:45 17:49 23:34 WBC RBC Hgb 8.4 L Hct 26.4 L MCV MCH RDW Plt Count Lymph % (Auto) Evangeline # (Auto) Seg Neutrophils % Seg Neuts % (Manual) Lymphocytes % (Manual) Monocytes % (Manual) Eosinophils % (Manual) Seg Neutrophils # Seg Neutrophils # Man Lymphocytes # (Manual) Monocytes # (Manual) Eosinophils # (Manual) PT INR APTT Sodium Potassium Chloride Carbon Dioxide BUN Creatinine Glucose POC Glucose 112 H 116 H Lactic Acid Calcium Phosphorus Magnesium Direct Bilirubin Alkaline Phosphatase Troponin T NT-Pro-B Natriuret Pep Total Protein Albumin HDL Cholesterol Urine pH Urine WBC (Auto) Urine Creatinine Crossmatch 05/24/20 05/24/20 05/25/20 05:45 05:45 05:00 WBC 18.4 H RBC 3.35 L Hgb 8.6 L Hct 26.5 L MCV 79 L MCH 26 L RDW 23.9 H Plt Count Lymph % (Auto) Evangeline # (Auto) Seg Neutrophils % Seg Neuts % (Manual) 81.0 H Lymphocytes % (Manual) 12.0 L Monocytes % (Manual) Eosinophils % (Manual) Seg Neutrophils # Seg Neutrophils # Man 14.9 H Lymphocytes # (Manual) Monocytes # (Manual) 1.3 H Eosinophils # (Manual) PT INR APTT Sodium Potassium 3.1 L Chloride 109.5 H Carbon Dioxide BUN Creatinine Glucose 111 H POC Glucose Lactic Acid Calcium 6.8 L 7.2 L Phosphorus Magnesium 1.00 L Direct Bilirubin Alkaline Phosphatase Troponin T NT-Pro-B Natriuret Pep Total Protein Albumin HDL Cholesterol Urine pH Urine WBC (Auto) Urine Creatinine Crossmatch 02/24/21 02/24/21 02/24/21 09:34 11:31 18:25 WBC 12.7 H RBC 3.14 L Hgb 8.0 L Hct 24.6 L MCV 78 L MCH 25 L RDW 25.0 H Plt Count Lymph % (Auto) Evangeline # (Auto) Seg Neutrophils % Seg Neuts % (Manual) 94.0 H Lymphocytes % (Manual) 3.0 L Monocytes % (Manual) Eosinophils % (Manual) Seg Neutrophils # Seg Neutrophils # Man 11.9 H Lymphocytes # (Manual) 0.4 L Monocytes # (Manual) Eosinophils # (Manual) PT INR APTT Sodium Potassium Chloride Carbon Dioxide BUN Creatinine Glucose POC Glucose 63 L 57 L Lactic Acid Calcium Phosphorus Magnesium Direct Bilirubin Alkaline Phosphatase Troponin T NT-Pro-B Natriuret Pep Total Protein Albumin HDL Cholesterol Urine pH Urine WBC (Auto) Urine Creatinine Crossmatch 05/25/20 05/26/20 05/26/20 23:44 04:16 04:16 WBC RBC 3.07 L Hgb 8.0 L Hct 24.2 L MCV 79 L MCH 26 L RDW 24.8 H Plt Count Lymph % (Auto) Evangeline # (Auto) Seg Neutrophils % Seg Neuts % (Manual) 85.0 H Lymphocytes % (Manual) 8.0 L Monocytes % (Manual) Eosinophils % (Manual) 5.0 H Seg Neutrophils # Seg Neutrophils # Man 7.9 H Lymphocytes # (Manual) 0.7 L Monocytes # (Manual) Eosinophils # (Manual) 0.5 H PT INR APTT Sodium Potassium 3.4 L Chloride 108.6 H Carbon Dioxide BUN Creatinine 0.7 L Glucose 101 H POC Glucose 52 L Lactic Acid Calcium 7.7 L Phosphorus Magnesium Direct Bilirubin Alkaline Phosphatase Troponin T NT-Pro-B Natriuret Pep Total Protein Albumin HDL Cholesterol Urine pH Urine WBC (Auto) Urine Creatinine Crossmatch 05/26/20 05/27/20 05/27/20 12:41 00:45 06:23 WBC RBC Hgb Hct MCV MCH RDW Plt Count Lymph % (Auto) Evangeline # (Auto) Seg Neutrophils % Seg Neuts % (Manual) Lymphocytes % (Manual) Monocytes % (Manual) Eosinophils % (Manual) Seg Neutrophils # Seg Neutrophils # Man Lymphocytes # (Manual) Monocytes # (Manual) Eosinophils # (Manual) PT INR APTT Sodium 135 L Potassium 3.4 L Chloride Carbon Dioxide BUN Creatinine Glucose POC Glucose 64 L Lactic Acid Calcium 7.4 L Phosphorus Magnesium Direct Bilirubin Alkaline Phosphatase 566 H Troponin T NT-Pro-B Natriuret Pep Total Protein 5.3 L D Albumin 1.9 L HDL Cholesterol Urine pH Urine WBC (Auto) Urine Creatinine Crossmatch 05/28/20 05/29/20 05/29/20 04:35 17:01 18:54 WBC RBC Hgb Hct MCV MCH RDW Plt Count Lymph % (Auto) Evangeline # (Auto) Seg Neutrophils % Seg Neuts % (Manual) Lymphocytes % (Manual) Monocytes % (Manual) Eosinophils % (Manual) Seg Neutrophils # Seg Neutrophils # Man Lymphocytes # (Manual) Monocytes # (Manual) Eosinophils # (Manual) PT INR APTT Sodium Potassium Chloride Carbon Dioxide BUN Creatinine 0.7 L Glucose POC Glucose 57 L 135 H Lactic Acid Calcium 7.7 L Phosphorus Magnesium Direct Bilirubin Alkaline Phosphatase Troponin T NT-Pro-B Natriuret Pep Total Protein Albumin HDL Cholesterol Urine pH Urine WBC (Auto) Urine Creatinine Crossmatch 05/30/20 05/30/20 05/30/20 05:42 11:30 23:28 WBC RBC Hgb Hct MCV MCH RDW Plt Count Lymph % (Auto) Evangeline # (Auto) Seg Neutrophils % Seg Neuts % (Manual) Lymphocytes % (Manual) Monocytes % (Manual) Eosinophils % (Manual) Seg Neutrophils # Seg Neutrophils # Man Lymphocytes # (Manual) Monocytes # (Manual) Eosinophils # (Manual) PT INR APTT Sodium Potassium 3.4 L Chloride Carbon Dioxide BUN 6 L Creatinine 0.6 L Glucose 105 H POC Glucose 51 L 55 L Lactic Acid Calcium 7.5 L Phosphorus 1.80 L Magnesium Direct Bilirubin Alkaline Phosphatase Troponin T NT-Pro-B Natriuret Pep Total Protein Albumin HDL Cholesterol Urine pH Urine WBC (Auto) Urine Creatinine Crossmatch 05/31/20 05:37 WBC RBC Hgb Hct MCV MCH RDW Plt Count Lymph % (Auto) Evangeline # (Auto) Seg Neutrophils % Seg Neuts % (Manual) Lymphocytes % (Manual) Monocytes % (Manual) Eosinophils % (Manual) Seg Neutrophils # Seg Neutrophils # Man Lymphocytes # (Manual) Monocytes # (Manual) Eosinophils # (Manual) PT INR APTT Sodium 136 L Potassium Chloride Carbon Dioxide BUN 6 L Creatinine 0.6 L Glucose POC Glucose Lactic Acid Calcium 7.5 L Phosphorus Magnesium Direct Bilirubin Alkaline Phosphatase Troponin T NT-Pro-B Natriuret Pep Total Protein Albumin HDL Cholesterol Urine pH Urine WBC (Auto) Urine Creatinine Crossmatch [facility] notes reviewed: nursing
--- NOTE | 2020-05-31 14:13 | Progress Note ---
Assessment and Plan 1. Acute kidney injury: Vasomotor EBENEZER in the setting of septic shock. CT abdomen negative for hydro. ATN. Creatinine level is better. Monitor renal function. Avoid nephrotoxic agents. Meds dosage based on GFR. 2. FEN: On IV D5W for hypoglycemia. Monitor volume status and lytes. 3. Urosepsis, POA: S/p Abx. 4. Septic shock: Off pressors. 5. Toxic metabolic encephalopathy: Baseline MS is unknown. Monitor. 6. Anemia, POA: Transfuse prn. Monitor. 7. Gall bladder drain, POA. 8. Low blood sugar: On IV D5W, Monitor. Will sign off and see patient as needed. Subjective: Patient was seen and examined at the bedside. RN at the bedside. Examination: General appearance: well-developed, appears stated age, not in distress HEENT: ATNC, R pupil is dilated Neck: Trachea midline Respiratory: ctab Cardiology: regular, S1S2, no murmur Abdomen: soft, normoactive bowel sounds, RUQ drain, not tender, not distended Integumentary: warm and dry, no obvious rash Neurologic: alert, R hemiplegia : Engel catheter Subjective Date of service: 05/31/20 Principal diagnosis: Septic shock; Metabolic Acidosis; Ac, Toxic metabolic encephalopathy; EBENEZER Objective - Vital Signs Vital signs: Vital Signs - 12hr 05/31/20 05/31/20 05/31/20 03:24 08:39 11:52 Temperature 98.1 F 98.4 F Pulse Rate 66 104 H Respiratory 18 18 Rate Blood Pressure 137/68 130/63 O2 Sat by Pulse 85 Oximetry 05/31/20 12:50 Temperature 97.8 F Pulse Rate Respiratory 20 Rate Blood Pressure 112/62 O2 Sat by Pulse Oximetry - Lab 05/26/20 04:16 05/31/20 05:37 Most recent lab results Calcium 7.5 mg/dL (8.4-10.2) L 05/31/20 05:37 Phosphorus 3.20 mg/dL (2.5-4.5) D 05/31/20 05:37 Magnesium 2.30 mg/dL (1.7-2.3) 05/25/20 05:00 Urine Creatinine 48.1 mg/dL (0.1-20.0) H 05/22/20 09:49 Urine Sodium 130 mmol/L 05/22/20 09:49 Medications & Allergies - Medications Allergies/Adverse Reactions: Allergies No Known Allergies Allergy (Unverified 04/14/18 14:09) Home Medications: Home Medications Medication Instructions Recorded Confirmed Last Taken Type Pantoprazole [Protonix TAB] 40 mg PO BID #60 tablet 04/14/18 05/22/20 Unknown Rx Aspirin [Aspirin BABY CHEW TAB] 81 mg PO QDAY #60 tab.chew 11/10/19 05/22/20 Unknown Rx AtorvaSTATin [Lipitor] 80 mg PO QHS #60 tablet 11/10/19 05/22/20 Unknown Rx Clopidogrel [Plavix] 75 mg PO QDAY #60 tablet 11/10/19 05/22/20 Unknown Rx NIFEdipine XL [Procardia Xl] 30 mg PO Q12HR #30 tablet 11/10/19 05/22/20 Unknown Rx carvediloL [Coreg] 3.125 mg PO BID #60 tablet 03/22/20 05/22/20 Unknown Rx Povidone-Iodine [Betadine] 1 applicatio TD DAILY 05/22/20 05/22/20 Unknown History Active Medications: Generic Name Dose Route Start Last Admin Trade Name Freq PRN Reason Stop Dose Admin Acetaminophen 650 mg 05/22/20 12:31 Acetaminophen 325 Mg Tab PO Q6H PRN Pain, Mild (1-3) Albuterol 2.5 mg 05/22/20 12:14 Albuterol 2.5 Mg/3 Ml Nebu IH Q3HRT PRN Shortness Of Breath Aspirin 81 mg 05/23/20 10:00 05/31/20 09:29 Aspirin 81 Mg Tab Chew PO 81 mg QDAY VANE Administration Atorvastatin Calcium 80 mg 05/22/20 22:00 05/30/20 22:34 Atorvastatin 40 Mg Tab PO 80 mg QHS VANE Administration Clopidogrel Bisulfate 75 mg 05/23/20 10:00 05/31/20 09:29 Clopidogrel 75 Mg Tab PO 75 mg QDAY VANE Administration Dextrose 25 ml 05/25/20 00:13 05/30/20 11:51 Dextrose 50% In Water (25gm) 50 Ml Syringe IV 20 ml Q30MIN PRN Administration Hypoglycemia Protocol Heparin Sodium (Porcine) 5,000 unit 05/22/20 22:00 05/31/20 09:30 Heparin 5,000 Unit/1 Ml Vial SUB-Q 5,000 unit Q12HR VANE Administration Hydromorphone HCl 0.25 mg 05/22/20 12:31 05/30/20 06:02 Hydromorphone 1 Mg/1 Ml Inj IV 0.25 mg Q4H PRN Administration Pain, Moderate (4-6) Dextrose 1,000 mls @ 75 mls/hr 05/26/20 01:00 05/31/20 10:29 D5w IV 75 mls/hr DIRECT VANE Administration Pantoprazole Sodium 40 mg 05/22/20 22:00 05/31/20 09:29 Pantoprazole 40 Mg Tab PO 40 mg BID VANE Administration Sodium Chloride 10 ml 05/22/20 22:00 05/31/20 09:29 Sodium Chloride 0.9% 10 Ml Flush Syringe IV 10 ml BID VANE Administration Sodium Chloride 10 ml 05/22/20 12:14 Sodium Chloride 0.9% 10 Ml Flush Syringe IV PRN PRN LINE FLUSH
[2020-05-31] MEDS: HYDROmorphone 1 MG/1 ML INJ IV PRN (21:51)
[2020-06-01] MEDS: ASPIRIN 81 MG TAB CHEW PO SCH (09:39)
[2020-06-01] MEDS: CLOPIDOGREL 75 MG TAB PO SCH (09:39)
[2020-06-01] MEDS: PANTOPRAZOLE 40 MG TAB PO SCH ×2 (09:39→21:44)
[2020-06-01] MEDS: HEPARIN 5,000 UNIT/1 ML VIAL SUB-Q SCH ×2 (09:40→21:44)
--- NOTE | 2020-06-01 12:34 | Progress Note ---
Assessment and Plan Assessment and plan: Sepsis Acute cystitis/UTI Cholecystitis. Inflammation seen on CT. Cholecystostomy tube in place. Metabolic acidosis Toxic metabolic encephalopathy Acute kidney injury/acute renal failure Hospital course: 05/23/2020 -Septic shock likely due to UTI, patient is on IV cefepime, IV fluid and pressor support. Critical care consulted -Acute renal failure, improved with IV fluids, nephrology consulted 05/24/2020 -Admitted for septic shock due to UTI, patient is on IV cefepime, IV fluids, pressor support, ID consulted. -Acute renal failure IV fluids and nephrology consult -Patient is saturating 100% on room air -Patient was alert 05/25/2020 -Patient is on IV cefepime and ID increase the dose. -Acute renal failure is improving -Patient had history of cholecystostomy tube placement and was seen by general surgery and order imaging study. -Patient is still on pressors for low blood pressure 05/27/2020 -Patient was admitted for septic shock and he is doing well. Continue with cefepime while he is here and can be discharged with po Levaquin to finish a total of 7 days course of antibiotics. He was evaluated by general surgery and imaging was done and no further work-up is needed. GI also saw the patient. Patient is stable for discharge Case management is working for placement. Patient's family does not want him to go back to the facility where he came from. 05/28/2020 patient is alert today able to make needs known at this particular time. Recently admitted for septic shock. Currently treated with cefepime while in house. Awaiting placement will change to Levaquin to complete 6 more days of antibiotics. Stable for discharge awaiting placement Case management. 05/29/2020. Patient doing well able to make all needs known no new concerns. Patient wants to know that he was doing well. No more in shock. Awaiting placement. Patient tolerated change to Levaquin well. Patient is not eating solid foods that well will change to pured diet and see how effective that may be. 05/30/2020. Patient resting comfortably no acute distress. Hospital course uncomplicated over p.m. Patient doing better with change in the consistency of diet. Currently awaiting placement. 05/31/2020. Etiology of acute kidney injury secondary to vasomotor nephropathy/ATN in the setting of sepsis/septic shock. CT abdomen negative for hydronephrosis. ID recommended cefepime 2 g every 8 hours with completion total of 7 days. Case management working on placement. 06/01/2020. Continue IV antibiotics per ID recommendations. Case management still working on placement. History Interval history: No new issues overnight Hospitalist Physical - Constitutional Vitals: Temp Pulse Resp BP Pulse Ox 98.9 F 84 16 94/63 93 06/01/20 09:10 06/01/20 09:10 06/01/20 03:09 06/01/20 09:10 06/01/20 09:10 General appearance: Present: no acute distress, well-nourished - EENT Eyes: Present: PERRL, EOM intact ENT: hearing intact, clear oral mucosa, dentition normal - Neck Neck: Present: supple, normal ROM - Respiratory Respiratory effort: normal Respiratory: bilateral: CTA - Cardiovascular Rhythm: regular Heart Sounds: Present: S1 & S2. Absent: gallop, rub - Extremities Extremities: no ischemia, No edema, Full ROM - Abdominal General gastrointestinal: soft, non-tender, non-distended, normal bowel sounds - Integumentary Integumentary: Present: clear, warm, dry - Neurologic Neurologic: CNII-XII intact, moves all extremities HEART Score - HEART Score Troponin: Troponin T 0.271 ng/mL (0.00-0.029) H* 05/22/20 09:10 Results - Labs CBC & Chem 7: 05/26/20 04:16 05/31/20 05:37 Labs: Laboratory Last Values WBC 9.3 K/mm3 (4.5-11.0) 05/26/20 04:16 RBC 3.07 M/mm3 (3.65-5.03) L 05/26/20 04:16 Hgb 8.0 gm/dl (11.8-15.2) L 05/26/20 04:16 Hct 24.2 % (35.5-45.6) L 05/26/20 04:16 MCV 79 fl (84-94) L 05/26/20 04:16 MCH 26 pg (28-32) L 05/26/20 04:16 MCHC 33 % (32-34) 05/26/20 04:16 RDW 24.8 % (13.2-15.2) H 05/26/20 04:16 Plt Count 260 K/mm3 (140-440) 05/26/20 04:16 Lymph % (Auto) 11.5 % (13.4-35.0) L 05/23/20 05:05 [place] % (Auto) 5.8 % (0.0-7.3) 05/23/20 05:05 Eos % (Auto) 0.8 % (0.0-4.3) 05/23/20 05:05 Baso % (Auto) 0.4 % (0.0-1.8) 05/23/20 05:05 Lymph # (Auto) 2.3 K/mm3 (1.2-5.4) 05/23/20 05:05 [place] # (Auto) 1.2 K/mm3 (0.0-0.8) H 05/23/20 05:05 Eos # (Auto) 0.2 K/mm3 (0.0-0.4) 05/23/20 05:05 Baso # (Auto) 0.1 K/mm3 (0.0-0.1) 05/23/20 05:05 Add Manual Diff Complete 05/26/20 04:16 Total Counted 100 05/26/20 04:16 Seg Neutrophils % 81.5 % (40.0-70.0) H 05/23/20 05:05 Seg Neuts % (Manual) 85.0 % (40.0-70.0) H 05/26/20 04:16 Band Neutrophils % 2.0 % 05/22/20 09:10 Lymphocytes % (Manual) 8.0 % (13.4-35.0) L 05/26/20 04:16 Monocytes % (Manual) 2.0 % (0.0-7.3) 05/26/20 04:16 Eosinophils % (Manual) 5.0 % (0.0-4.3) H 05/26/20 04:16 Myelocytes % 1.0 % 05/25/20 09:34 Promyelocytes % 0 % 05/25/20 09:34 Nucleated RBC % Not Reportable 05/26/20 04:16 Seg Neutrophils # 16.5 K/mm3 (1.8-7.7) H 05/23/20 05:05 Seg Neutrophils # Man 7.9 K/mm3 (1.8-7.7) H 05/26/20 04:16 Band Neutrophils # 0.0 K/mm3 05/26/20 04:16 Lymphocytes # (Manual) 0.7 K/mm3 (1.2-5.4) L 05/26/20 04:16 Abs React Lymphs (Man) 0.0 K/mm3 05/26/20 04:16 Monocytes # (Manual) 0.2 K/mm3 (0.0-0.8) 05/26/20 04:16 Eosinophils # (Manual) 0.5 K/mm3 (0.0-0.4) H 05/26/20 04:16 Basophils # (Manual) 0.0 K/mm3 (0.0-0.1) 05/26/20 04:16 Metamyelocytes # 0.0 K/mm3 05/26/20 04:16 Myelocytes # 0.0 K/mm3 05/26/20 04:16 Promyelocytes # 0.0 K/mm3 05/26/20 04:16 Blast Cells # 0.0 K/mm3 05/26/20 04:16 WBC Morphology Not Reportable 05/26/20 04:16 Hypersegmented Neuts Not Reportable 05/26/20 04:16 Hyposegmented Neuts Not Reportable 05/26/20 04:16 Hypogranular Neuts Not Reportable 05/26/20 04:16 Smudge Cells Not Reportable 05/26/20 04:16 Toxic Granulation Not Reportable 05/26/20 04:16 Toxic Vacuolation Not Reportable 05/26/20 04:16 Dohle Bodies Not Reportable 05/26/20 04:16 Pelger-Huet Anomaly Not Reportable 05/26/20 04:16 Lynne Rods Not Reportable 05/26/20 04:16 Platelet Estimate Consistent w auto 05/26/20 04:16 Clumped Platelets Not Reportable 05/26/20 04:16 Plt Clumps, EDTA Not Reportable 05/26/20 04:16 Large Platelets Not Reportable 05/26/20 04:16 Giant Platelets Not Reportable 05/26/20 04:16 Platelet Satelliting Not Reportable 05/26/20 04:16 Plt Morphology Comment Not Reportable 05/26/20 04:16 RBC Morphology Not Reportable 05/26/20 04:16 Dimorphic RBCs Not Reportable 05/26/20 04:16 Polychromasia Not Reportable 05/26/20 04:16 Hypochromasia Few 05/26/20 04:16 Poikilocytosis Not Reportable 05/26/20 04:16 Anisocytosis 2+ 05/26/20 04:16 Microcytosis Not Reportable 05/26/20 04:16 Macrocytosis Not Reportable 05/26/20 04:16 Spherocytes Not Reportable 05/26/20 04:16 Pappenheimer Bodies Not Reportable 05/26/20 04:16 Sickle Cells Not Reportable 05/26/20 04:16 Target Cells Not Reportable 05/26/20 04:16 Tear Drop Cells Not Reportable 05/26/20 04:16 Ovalocytes Not Reportable 05/26/20 04:16 Helmet Cells Not Reportable 05/26/20 04:16 [place] Bodies Not Reportable 05/26/20 04:16 [place] Rings Not Reportable 05/26/20 04:16 Paul Cells Not Reportable 05/26/20 04:16 Bite Cells Not Reportable 05/26/20 04:16 Crenated Cell Not Reportable 05/26/20 04:16 Elliptocytes Few 05/26/20 04:16 Acanthocytes (Spur) Not Reportable 05/26/20 04:16 Rouleaux Not Reportable 05/26/20 04:16 Hemoglobin C Crystals Not Reportable 05/26/20 04:16 Schistocytes Rare 05/26/20 04:16 Malaria parasites Not Reportable 05/26/20 04:16 Chandrakant Bodies Not Reportable 05/26/20 04:16 Hem Pathologist Commnt No 05/26/20 04:16 PT 15.5 Sec. (12.2-14.9) H 05/22/20 09:10 INR 1.25 (0.87-1.13) H 05/22/20 09:10 APTT 47.6 Sec. (24.2-36.6) H 05/22/20 09:10 Sodium 136 mmol/L (137-145) L 05/31/20 05:37 Potassium 3.8 mmol/L (3.6-5.0) 05/31/20 05:37 Chloride 101.0 mmol/L (98-107) 05/31/20 05:37 Carbon Dioxide 23 mmol/L (22-30) 05/31/20 05:37 Anion Gap 16 mmol/L 05/31/20 05:37 BUN 6 mg/dL (9-20) L 05/31/20 05:37 Creatinine 0.6 mg/dL (0.8-1.3) L 05/31/20 05:37 Estimated GFR > 60 ml/min 05/31/20 05:37 BUN/Creatinine Ratio 10 % 05/31/20 05:37 Glucose 98 mg/dL (75-100) 05/31/20 05:37 POC Glucose 92 mg/dL (70-105) 06/01/20 05:18 Lactic Acid 0.90 mmol/L (0.7-2.0) 05/22/20 23:25 Calcium 7.5 mg/dL (8.4-10.2) L 05/31/20 05:37 Phosphorus 3.20 mg/dL (2.5-4.5) D 05/31/20 05:37 Magnesium 2.30 mg/dL (1.7-2.3) 05/25/20 05:00 Total Bilirubin 0.30 mg/dL (0.1-1.2) 05/27/20 00:45 Direct Bilirubin < 0.2 mg/dL (0-0.2) 05/27/20 00:45 Indirect Bilirubin 0.1 mg/dL 05/27/20 00:45 AST 17 units/L (5-40) 05/27/20 00:45 ALT 9 units/L (7-56) 05/27/20 00:45 Alkaline Phosphatase 566 units/L (35-129) H 05/27/20 00:45 Troponin T 0.271 ng/mL (0.00-0.029) H* 05/22/20 09:10 NT-Pro-B Natriuret Pep 1448 pg/mL (0-900) H 05/22/20 09:10 Total Protein 5.3 g/dL (6.3-8.2) L D 05/27/20 00:45 Albumin 1.9 g/dL (3.9-5) L 05/27/20 00:45 Albumin/Globulin Ratio 0.6 % 05/27/20 00:45 Triglycerides 143 mg/dL (2-149) 05/22/20 09:10 Cholesterol 118 mg/dL (50-199) 05/22/20 09:10 LDL Cholesterol Direct 55 mg/dL (50-130) 05/22/20 09:10 HDL Cholesterol 39 mg/dL (40-59) L 05/22/20 09:10 Cholesterol/HDL Ratio 3.02 % 05/22/20 09:10 Urine Color [place] (Yellow) 05/22/20 09:32 Urine Turbidity Cloudy (Clear) 05/22/20 09:32 Urine pH 8.0 (5.0-7.0) H 05/22/20 09:32 Ur Specific [place] 1.010 (1.003-1.030) 05/22/20 09:32 Urine Protein >500 mg/dL (Negative) 05/22/20 09:32 Urine Glucose (UA) Neg mg/dL (Negative) 05/22/20 09:32 Urine Ketones Neg mg/dL (Negative) 05/22/20 09:32 Urine Blood Sm (Negative) 05/22/20 09:32 Urine Nitrite Neg (Negative) 05/22/20 09:32 Urine Bilirubin Neg (Negative) 05/22/20 09:32 Urine Urobilinogen < 2.0 mg/dL (<2.0) 05/22/20 09:32 Ur Leukocyte Esterase Mod (Negative) 05/22/20 09:32 Urine WBC (Auto) > 182.0 /HPF (0.0-6.0) H 05/22/20 09:32 Urine RBC (Auto) 9.0 /HPF (0.0-6.0) 05/22/20 09:32 U Epithel Cells (Auto) 1.0 /HPF (0-13.0) 05/22/20 09:32 Urine WBC Clumps 2+ /HPF 05/22/20 09:32 Urine Mucus Few /HPF 05/22/20 09:32 Urine Creatinine 48.1 mg/dL (0.1-20.0) H 05/22/20 09:49 Urine Sodium 130 mmol/L 05/22/20 09:49 Coronavirus (PCR) Negative (Negative) 05/28/20 Unknown Blood Type A POSITIVE 05/23/20 06:10 Antibody Screen Negative 05/23/20 06:10 Crossmatch See Detail 05/23/20 06:10 - Diagnostic Impressions Diagnostic Impressions: Echocardiogram 05/22/20 14:25 Transthoracic Echocardiogram Indication: Cardiomyopathy BP: 97/48 HR: 84 Conclusions *Global left ventricular systolic function is normal. *The estimated ejection fraction is 55-60%. *There is no evidence of aortic regurgitation. *There is no evidence of mitral regurgitation. *There is mild tricuspid regurgitation. *The right ventricular systolic pressure is calculated at 31 mmHg. Findings Left Ventricle: The left ventricular chamber size is normal. Global left ventricular wall motion and contractility are within normal limits. Global left ventricular systolic function is normal. The estimated ejection fraction is 55-60%. Abnormal left ventricular diastolic filling is observed, consistent with impaired relaxation. Right Ventricle: The right ventricle is not well visualized. Aortic Valve: Mild aortic leaflet calcification is visualized. There is no evidence of aortic regurgitation. Mitral Valve: The mitral valve leaflets are mildly thickened. There is no evidence of mitral regurgitation. Tricuspid Valve: The tricuspid valve leaflets are normal. There is mild tricuspid regurgitation. The right ventricular systolic pressure is calculated at 31 mmHg. Pulmonic Valve: The pulmonic valve is not well visualized. Pericardium: There is no pericardial effusion. Aorta: The aorta appears normal. Venous: The inferior vena cava is not visualized. Measurements Chambers 2D Name Value Normal Range IVSd (2D) 0.93 cm (0.6 - 1.1) LVPWd (2D) 0.88 cm (0.6 - 1.1) LVIDd (2D) 4.14 cm (3.7 - 5.6) LVIDs (2D) 2.84 cm (2 - 3.8) LV FS (2D) 31.49 % - EF Teichholz (2D) 59.83 % - Ao root diameter (2D) 2.95 cm (2 - 3.7) Volumes/Mass Name Value Normal Range LA ESV SP 4CH (A/L) 18.27 ml - LA ESV SP 2CH (A/L) 16.69 ml - LA ESV BP (A/L) 20.49 ml - LA ESV BP (A/L) index 9.95 ml/m2 - LA ESV SP 4CH (MOD) 16.89 ml - LA ESV SP 2CH (MOD) 16.63 ml - LA ESV BP (MOD) 19.39 ml - LA ESV BP (MOD) index 9.41 ml/m2 - Diastolic/Systolic Function Name Value Normal Range MV E-wave Vmax 0.69 m/sec - MV deceleration time 231.55 msec - MV A-wave Vmax 0.85 m/sec - MV E:A ratio 0.81 ratio - Aortic Valve Name Value Normal Range AV Vmax 1.43 m/sec - AV VTI 26.37 cm - AV peak gradient 8.16 mmHg - AV mean gradient 5.15 mmHg - LVOT diameter 2.39 cm - LVOT Vmax 0.94 m/sec - LVOT VTI 17.92 cm - LVOT peak gradient 3.5 mmHg - LVOT mean gradient 2.07 mmHg - SV LVOT 80.13 ml - NURIA (continuity Vmax) 2.93 cm2 - NURIA (continuity VTI) 3.04 cm2 - Tricuspid Valve Name Value Normal Range TR Vmax 2.63 m/sec - TR peak gradient 28 mmHg - RAP 3 mmHg - RVSP 31 mmHg - Pulmonic Valve/Qp:Qs Name Value Normal Range PV acceleration time 95.15 msec - Engel/IV: Voiding Method Indwelling Catheter Active Medications - Current Medications Current Medications: Generic Name Dose Route Start Last Admin Trade Name Freq PRN Reason Stop Dose Admin Acetaminophen 650 mg 05/22/20 12:31 Acetaminophen 325 Mg Tab PO Q6H PRN Pain, Mild (1-3) Albuterol 2.5 mg 05/22/20 12:14 Albuterol 2.5 Mg/3 Ml Nebu IH Q3HRT PRN Shortness Of Breath Aspirin 81 mg 05/23/20 10:00 06/01/20 09:39 Aspirin 81 Mg Tab Chew PO 81 mg QDAY VANE Administration Atorvastatin Calcium 80 mg 05/22/20 22:00 05/31/20 21:50 Atorvastatin 40 Mg Tab PO 80 mg QHS VANE Administration Clopidogrel Bisulfate 75 mg 05/23/20 10:00 06/01/20 09:39 Clopidogrel 75 Mg Tab PO 75 mg QDAY VANE Administration Dextrose 25 ml 05/25/20 00:13 05/30/20 11:51 Dextrose 50% In Water (25gm) 50 Ml Syringe IV 20 ml Q30MIN PRN Administration Hypoglycemia Protocol Heparin Sodium (Porcine) 5,000 unit 05/22/20 22:00 06/01/20 09:40 Heparin 5,000 Unit/1 Ml Vial SUB-Q 5,000 unit Q12HR VANE Administration Hydromorphone HCl 0.25 mg 05/22/20 12:31 05/31/20 21:51 Hydromorphone 1 Mg/1 Ml Inj IV 0.25 mg Q4H PRN Administration Pain, Moderate (4-6) Dextrose 1,000 mls @ 75 mls/hr 05/26/20 01:00 05/31/20 10:29 D5w IV 75 mls/hr DIRECT VANE Administration Pantoprazole Sodium 40 mg 05/22/20 22:00 06/01/20 09:39 Pantoprazole 40 Mg Tab PO 40 mg BID VANE Administration Sodium Chloride 10 ml 05/22/20 22:00 06/01/20 09:40 Sodium Chloride 0.9% 10 Ml Flush Syringe IV 10 ml BID VANE Administration Sodium Chloride 10 ml 05/22/20 12:14 Sodium Chloride 0.9% 10 Ml Flush Syringe IV PRN PRN LINE FLUSH Nutrition/Malnutrition Assess - Dietary Evaluation Nutrition/Malnutrition Findings: Nutrition Notes Start: 05/27/20 11:22 Freq: Status: Active Protocol: Document 05/30/20 09:04 CW (Rec: 05/30/20 09:14 CW [id number]) Nutrition Notes Initial or Follow up Reassessment Current Diagnosis Coronary Artery Disease, Decubitus(Pressure Ulcer), Sepsis,Hypertension, Respiratory Failure, Hyperlipidemia Other Pertinent Diagnosis Metabolic Encephalopathy, s/p Cholecystostomy, Dementia, UTI Current Diet Pureed Labs/Tests BG 105 K 3.4 Pertinent Medications D50w at 75ml/h KPO3 in NS at 83 ml/h Height 5 ft 9 in Weight 82.7 kg [place] Body Weight (kg) 72.72 BMI 26.9 Weight change and time frame weight change noted. Weight Status Appropriate Subjective/Other Information F/U for PO intakes and ONS tolerance. Pt states no appetite and does not want to eat. Pt also refused diet over the weekend as well. RN states pt ate neglible portion of meal this morning. Spoke to nurse about possible feeding plans, TF recommended if pt continues to refuse meals. Unable to fully understand/obtain food preferences from pt. One ONS noted in room. No build up of ONS, indicates tolerance with them. [employer] recommend mechanical soft diet but pt is recieving pureed diet at this moment for safety. Percent of energy/protein needs met: 0%/0% Burn Absent Trauma Absent GI Symptoms None Difficulty In Chewing Skin Integrity/Comment Stage II Pressure Ulcer Current % PO Poor (25-49%) Minimum of two criteria Yes Interpretation of Weight Loss (severe) >5% in 1 month Body Fat Depletion Mild depletion (non-severe) Fluid Accumulation Mild (non-severe) Reduced Building Manager Strength N/A (non-severe) #2 Nutrition Diagnosis Increased nutrient needs ( specify in comment below) Diagnosis Progress(for reassessment Continues documentation) #1 Nutrition Diagnosis Malnutrition Diagnosis Progress(for reassessment Continues documentation) Is patient on ventilator? No Is Patient Ambulatory and/or Out of Bed No REE-([place]-confined to bed) 1892.676 Kcal/Kg value to use for calculation 26 Approximate Energy Requirements Using 2150 kcal/Kg Calculation Used for Recommendations Kcal/kg Additional Notes PRO needs: 98-122g (1.2-1.5 g/ kg) Fluid needs: 1 mL/kcal or per MD Nutrition Intervention Change Diet Order: Continue Pureed Diet Add Supplement/Snack (indicate name/kcal Ensure Enlive BID /protein ) Provides kCal: 700 Provides Protein (gm) 40 Goal #1 Wound healing Goal #2 Meet at least 80% of estimated energy and protein needs via diet and ONS Anticipated Discharge Needs: Cardiac Pureed Diet Follow-Up By: 06/01/20 Additional Comments F/U for POC, PO intakes, and ONS tolerance
[2020-06-01] MEDS: DEXTROSE 5% IN WATER 1,000 ML IV SCH (15:01)
--- NOTE | 2020-06-01 15:12 | Progress Note ---
Assessment and Plan Patient sleeping. Resting on room air.O2 saturation 98% on room air. No acute respiratory distress. Patient afebrile. No leukocytosis. Chest xray done 05/22/20 reported no acute findings. Patient is on Albuterol inhaler, S/C Heparin, Protonix. - Patient Problems (1) Hypoxia Current Visit: No Status: Acute Plan to address problem: Improved. O2 saturation 98% on room air. (2) Septic shock Current Visit: Yes Status: Acute Plan to address problem: Improved. Patient treated with cefepime. (3) Acute renal failure Current Visit: Yes Status: Acute Qualifiers: Acute renal failure type: with acute tubular necrosis Qualified Code(s): N17.0 - Acute kidney failure with tubular necrosis Plan to address problem: Management as per nephrology. (4) Toxic metabolic encephalopathy Current Visit: Yes Status: Acute Plan to address problem: Management as per primary care. (5) UTI (urinary tract infection) Current Visit: Yes Status: Acute Qualifiers: Encounter type: initial encounter Plan to address problem: Patient was on cefepime. (6) Acute cholecystitis Current Visit: No Status: Acute Plan to address problem: S/P percutaneous cholecystotomy drain placement. Management as per gastroenterology. (7) CVA (cerebral vascular accident) Current Visit: No Status: Acute Plan to address problem: Management as per primary care. (8) Hypertension Current Visit: No Status: Acute Plan to address problem: Management as per primary care. Subjective Date of service: 06/01/20 Principal diagnosis: Septic shock; Metabolic Acidosis; Ac, Toxic metabolic encephalopathy; EBENEZER Interval history: Patient sleeping. Resting on room air.O2 saturation 98% on room air. No acute respiratory distress. Patient afebrile. No leukocytosis. Chest xray done 05/22/20 reported no acute findings. Patient is on Albuterol inhaler, S/C Heparin, Protonix. Objective Vital Signs - 12hr 06/01/20 06/01/20 06/01/20 09:10 12:26 14:00 Temperature 98.9 F 98.2 F Pulse Rate 84 87 87 Respiratory 18 Rate Blood Pressure 94/63 102/56 O2 Sat by Pulse 93 95 Oximetry Constitutional: no acute distress, asleep Eyes: non-icteric ENT: oropharynx moist Neck: supple, no lymphadenopathy, no JVD Effort: normal Ascultation: Bilateral: clear Percussion: Bilateral: not dull Cardiovascular: regular rate and rhythm Gastrointestinal: normoactive bowel sounds, soft, tender (mild, LLQ, RUQ), non- distended (protuberant'), other (RUQ J-P drain) Integumentary: normal Extremities: no cyanosis, no edema, pink and warm, pulses normal Neurologic: non-focal exam (grossly), pupils equal and round, CN II-XII normal, other (slow to respond) Psychiatric: other (flat affect) CBC and BMP: 05/26/20 04:16 05/31/20 05:37 ABG, PT/INR, D-dimer: PT/INR, D-dimer PT 15.5 Sec. (12.2-14.9) H 05/22/20 09:10 INR 1.25 (0.87-1.13) H 05/22/20 09:10 Abnormal lab findings: Abnormal Labs 05/22/20 05/22/20 05/22/20 09:10 09:10 09:10 WBC 17.9 H RBC 3.60 L Hgb 8.7 L Hct 26.8 L MCV 74 L MCH 24 L RDW 24.0 H Plt Count 621 H Lymph % (Auto) [place] # (Auto) Seg Neutrophils % Seg Neuts % (Manual) 85.0 H Lymphocytes % (Manual) 5.0 L Monocytes % (Manual) 8.0 H Eosinophils % (Manual) Seg Neutrophils # Seg Neutrophils # Man 15.2 H Lymphocytes # (Manual) 0.9 L Monocytes # (Manual) 1.4 H Eosinophils # (Manual) PT INR APTT Sodium Potassium Chloride Carbon Dioxide BUN Creatinine Glucose POC Glucose Lactic Acid 3.30 H* Calcium Phosphorus Magnesium Direct Bilirubin Alkaline Phosphatase Troponin T 0.271 H* NT-Pro-B Natriuret Pep Total Protein Albumin HDL Cholesterol 39 L Urine pH Urine WBC (Auto) Urine Creatinine Crossmatch 05/22/20 05/22/20 05/22/20 09:10 09:10 09:32 WBC RBC Hgb Hct MCV MCH RDW Plt Count Lymph % (Auto) [place] # (Auto) Seg Neutrophils % Seg Neuts % (Manual) Lymphocytes % (Manual) Monocytes % (Manual) Eosinophils % (Manual) Seg Neutrophils # Seg Neutrophils # Man Lymphocytes # (Manual) Monocytes # (Manual) Eosinophils # (Manual) PT 15.5 H INR 1.25 H APTT 47.6 H Sodium 136 L Potassium Chloride 97.2 L Carbon Dioxide BUN 36 H Creatinine 3.8 H Glucose 133 H POC Glucose Lactic Acid Calcium 7.8 L Phosphorus Magnesium Direct Bilirubin 0.3 H Alkaline Phosphatase 248 H Troponin T NT-Pro-B Natriuret Pep 1448 H Total Protein Albumin 2.8 L HDL Cholesterol Urine pH 8.0 H Urine WBC (Auto) > 182.0 H Urine Creatinine Crossmatch 05/22/20 05/22/20 05/22/20 09:49 11:42 19:48 WBC RBC Hgb Hct MCV MCH RDW Plt Count Lymph % (Auto) [place] # (Auto) Seg Neutrophils % Seg Neuts % (Manual) Lymphocytes % (Manual) Monocytes % (Manual) Eosinophils % (Manual) Seg Neutrophils # Seg Neutrophils # Man Lymphocytes # (Manual) Monocytes # (Manual) Eosinophils # (Manual) PT INR APTT Sodium Potassium Chloride Carbon Dioxide BUN Creatinine Glucose POC Glucose Lactic Acid 3.70 H* 2.10 H* Calcium Phosphorus Magnesium Direct Bilirubin Alkaline Phosphatase Troponin T NT-Pro-B Natriuret Pep Total Protein Albumin HDL Cholesterol Urine pH Urine WBC (Auto) Urine Creatinine 48.1 H Crossmatch 05/22/20 05/23/20 05/23/20 23:27 05:05 05:05 WBC 20.3 H RBC 2.73 L Hgb 6.6 L Hct 20.8 L D MCV 76 L MCH 24 L RDW 23.9 H Plt Count 546 H Lymph % (Auto) 11.5 L [place] # (Auto) 1.2 H Seg Neutrophils % 81.5 H Seg Neuts % (Manual) Lymphocytes % (Manual) Monocytes % (Manual) Eosinophils % (Manual) Seg Neutrophils # 16.5 H Seg Neutrophils # Man Lymphocytes # (Manual) Monocytes # (Manual) Eosinophils # (Manual) PT INR APTT Sodium Potassium Chloride 112.5 H Carbon Dioxide 20 L BUN 26 H Creatinine 1.8 H D Glucose 135 H POC Glucose 124 H Lactic Acid Calcium 6.8 L Phosphorus Magnesium Direct Bilirubin Alkaline Phosphatase Troponin T NT-Pro-B Natriuret Pep Total Protein Albumin HDL Cholesterol Urine pH Urine WBC (Auto) Urine Creatinine Crossmatch 05/23/20 05/23/20 05/23/20 05:38 06:10 11:33 WBC RBC Hgb Hct MCV MCH RDW Plt Count Lymph % (Auto) [place] # (Auto) Seg Neutrophils % Seg Neuts % (Manual) Lymphocytes % (Manual) Monocytes % (Manual) Eosinophils % (Manual) Seg Neutrophils # Seg Neutrophils # Man Lymphocytes # (Manual) Monocytes # (Manual) Eosinophils # (Manual) PT INR APTT Sodium Potassium Chloride Carbon Dioxide BUN Creatinine Glucose POC Glucose 112 H 128 H Lactic Acid Calcium Phosphorus Magnesium Direct Bilirubin Alkaline Phosphatase Troponin T NT-Pro-B Natriuret Pep Total Protein Albumin HDL Cholesterol Urine pH Urine WBC (Auto) Urine Creatinine Crossmatch See Detail 05/23/20 05/23/20 05/23/20 14:45 17:49 23:34 WBC RBC Hgb 8.4 L Hct 26.4 L MCV MCH RDW Plt Count Lymph % (Auto) [place] # (Auto) Seg Neutrophils % Seg Neuts % (Manual) Lymphocytes % (Manual) Monocytes % (Manual) Eosinophils % (Manual) Seg Neutrophils # Seg Neutrophils # Man Lymphocytes # (Manual) Monocytes # (Manual) Eosinophils # (Manual) PT INR APTT Sodium Potassium Chloride Carbon Dioxide BUN Creatinine Glucose POC Glucose 112 H 116 H Lactic Acid Calcium Phosphorus Magnesium Direct Bilirubin Alkaline Phosphatase Troponin T NT-Pro-B Natriuret Pep Total Protein Albumin HDL Cholesterol Urine pH Urine WBC (Auto) Urine Creatinine Crossmatch 05/24/20 05/24/20 05/25/20 05:45 05:45 05:00 WBC 18.4 H RBC 3.35 L Hgb 8.6 L Hct 26.5 L MCV 79 L MCH 26 L RDW 23.9 H Plt Count Lymph % (Auto) [place] # (Auto) Seg Neutrophils % Seg Neuts % (Manual) 81.0 H Lymphocytes % (Manual) 12.0 L Monocytes % (Manual) Eosinophils % (Manual) Seg Neutrophils # Seg Neutrophils # Man 14.9 H Lymphocytes # (Manual) Monocytes # (Manual) 1.3 H Eosinophils # (Manual) PT INR APTT Sodium Potassium 3.1 L Chloride 109.5 H Carbon Dioxide BUN Creatinine Glucose 111 H POC Glucose Lactic Acid Calcium 6.8 L 7.2 L Phosphorus Magnesium 1.00 L Direct Bilirubin Alkaline Phosphatase Troponin T NT-Pro-B Natriuret Pep Total Protein Albumin HDL Cholesterol Urine pH Urine WBC (Auto) Urine Creatinine Crossmatch 05/25/20 05/25/20 05/25/20 09:34 11:31 18:25 WBC 12.7 H RBC 3.14 L Hgb 8.0 L Hct 24.6 L MCV 78 L MCH 25 L RDW 25.0 H Plt Count Lymph % (Auto) [place] # (Auto) Seg Neutrophils % Seg Neuts % (Manual) 94.0 H Lymphocytes % (Manual) 3.0 L Monocytes % (Manual) Eosinophils % (Manual) Seg Neutrophils # Seg Neutrophils # Man 11.9 H Lymphocytes # (Manual) 0.4 L Monocytes # (Manual) Eosinophils # (Manual) PT INR APTT Sodium Potassium Chloride Carbon Dioxide BUN Creatinine Glucose POC Glucose 63 L 57 L Lactic Acid Calcium Phosphorus Magnesium Direct Bilirubin Alkaline Phosphatase Troponin T NT-Pro-B Natriuret Pep Total Protein Albumin HDL Cholesterol Urine pH Urine WBC (Auto) Urine Creatinine Crossmatch 05/25/20 05/26/20 05/26/20 23:44 04:16 04:16 WBC RBC 3.07 L Hgb 8.0 L Hct 24.2 L MCV 79 L MCH 26 L RDW 24.8 H Plt Count Lymph % (Auto) [place] # (Auto) Seg Neutrophils % Seg Neuts % (Manual) 85.0 H Lymphocytes % (Manual) 8.0 L Monocytes % (Manual) Eosinophils % (Manual) 5.0 H Seg Neutrophils # Seg Neutrophils # Man 7.9 H Lymphocytes # (Manual) 0.7 L Monocytes # (Manual) Eosinophils # (Manual) 0.5 H PT INR APTT Sodium Potassium 3.4 L Chloride 108.6 H Carbon Dioxide BUN Creatinine 0.7 L Glucose 101 H POC Glucose 52 L Lactic Acid Calcium 7.7 L Phosphorus Magnesium Direct Bilirubin Alkaline Phosphatase Troponin T NT-Pro-B Natriuret Pep Total Protein Albumin HDL Cholesterol Urine pH Urine WBC (Auto) Urine Creatinine Crossmatch 05/26/20 05/27/20 05/27/20 12:41 00:45 06:23 WBC RBC Hgb Hct MCV MCH RDW Plt Count Lymph % (Auto) [place] # (Auto) Seg Neutrophils % Seg Neuts % (Manual) Lymphocytes % (Manual) Monocytes % (Manual) Eosinophils % (Manual) Seg Neutrophils # Seg Neutrophils # Man Lymphocytes # (Manual) Monocytes # (Manual) Eosinophils # (Manual) PT INR APTT Sodium 135 L Potassium 3.4 L Chloride Carbon Dioxide BUN Creatinine Glucose POC Glucose 64 L Lactic Acid Calcium 7.4 L Phosphorus Magnesium Direct Bilirubin Alkaline Phosphatase 566 H Troponin T NT-Pro-B Natriuret Pep Total Protein 5.3 L D Albumin 1.9 L HDL Cholesterol Urine pH Urine WBC (Auto) Urine Creatinine Crossmatch 05/28/20 05/29/20 05/29/20 04:35 17:01 18:54 WBC RBC Hgb Hct MCV MCH RDW Plt Count Lymph % (Auto) [place] # (Auto) Seg Neutrophils % Seg Neuts % (Manual) Lymphocytes % (Manual) Monocytes % (Manual) Eosinophils % (Manual) Seg Neutrophils # Seg Neutrophils # Man Lymphocytes # (Manual) Monocytes # (Manual) Eosinophils # (Manual) PT INR APTT Sodium Potassium Chloride Carbon Dioxide BUN Creatinine 0.7 L Glucose POC Glucose 57 L 135 H Lactic Acid Calcium 7.7 L Phosphorus Magnesium Direct Bilirubin Alkaline Phosphatase Troponin T NT-Pro-B Natriuret Pep Total Protein Albumin HDL Cholesterol Urine pH Urine WBC (Auto) Urine Creatinine Crossmatch 05/30/20 05/30/20 05/30/20 05:42 11:30 23:28 WBC RBC Hgb Hct MCV MCH RDW Plt Count Lymph % (Auto) [place] # (Auto) Seg Neutrophils % Seg Neuts % (Manual) Lymphocytes % (Manual) Monocytes % (Manual) Eosinophils % (Manual) Seg Neutrophils # Seg Neutrophils # Man Lymphocytes # (Manual) Monocytes # (Manual) Eosinophils # (Manual) PT INR APTT Sodium Potassium 3.4 L Chloride Carbon Dioxide BUN 6 L Creatinine 0.6 L Glucose 105 H POC Glucose 51 L 55 L Lactic Acid Calcium 7.5 L Phosphorus 1.80 L Magnesium Direct Bilirubin Alkaline Phosphatase Troponin T NT-Pro-B Natriuret Pep Total Protein Albumin HDL Cholesterol Urine pH Urine WBC (Auto) Urine Creatinine Crossmatch 05/31/20 05/31/20 05:37 11:49 WBC RBC Hgb Hct MCV MCH RDW Plt Count Lymph % (Auto) [place] # (Auto) Seg Neutrophils % Seg Neuts % (Manual) Lymphocytes % (Manual) Monocytes % (Manual) Eosinophils % (Manual) Seg Neutrophils # Seg Neutrophils # Man Lymphocytes # (Manual) Monocytes # (Manual) Eosinophils # (Manual) PT INR APTT Sodium 136 L Potassium Chloride Carbon Dioxide BUN 6 L Creatinine 0.6 L Glucose POC Glucose 115 H Lactic Acid Calcium 7.5 L Phosphorus Magnesium Direct Bilirubin Alkaline Phosphatase Troponin T NT-Pro-B Natriuret Pep Total Protein Albumin HDL Cholesterol Urine pH Urine WBC (Auto) Urine Creatinine Crossmatch Allied health notes reviewed: nursing
[2020-06-02] MEDS: DEXTROSE 5% IN WATER 1,000 ML IV SCH ×2 (03:50→19:57)
[2020-06-02] MEDS: PANTOPRAZOLE 40 MG TAB PO SCH ×2 (09:51→21:19)
[2020-06-02] MEDS: HEPARIN 5,000 UNIT/1 ML VIAL SUB-Q SCH ×2 (09:51→21:19)
[2020-06-02] MEDS: CLOPIDOGREL 75 MG TAB PO SCH (09:51)
[2020-06-02] MEDS: ASPIRIN 81 MG TAB CHEW PO SCH (09:51)
--- NOTE | 2020-06-02 14:19 | Progress Note ---
Assessment and Plan Septic shock Metabolic Acidosis Acute Toxic metabolic encephalopathy Acute renal failure UTI (urinary tract infection) Acute Cystitis - complete antiinfective's per ID (cefepime 2 gms IV q8h X 7 days) - will need outpatient surgery f/up - continue fall precautions - continue care as below otherwise; - continue empiric Cefepime (trend lactate, procalcitonin to aid clinical decision making) - continue accuchecks with glycemic control per SSI for target blood glucose of < 180 mg/dL; avoid hypoglycemia - continue to wean supplemental oxygen for target O2 sat's > 92% acutely - aspiration precautions - prn bronchodilators with pulmonary hygiene per RT - avoid nephrotoxins, renally dose all medications - avoid benzodiazepine's, reduce the possibility of delirium - prn analgesia per pain score - Maintenance of sleep-wake cycle, avoid delirium - aspiration precautions - G.I. & VTE prophylaxis - PT/OT/ROM exercises - mobility protocols for pressure ulcer prophylaxis - Monitor hemodynamics closely - continue other care per attending / other consultants - discharge planning ongoing concurrently .... Re-evaluate in am & prn Subjective Date of service: 06/02/20 Principal diagnosis: Septic shock; Metabolic Acidosis; Ac, Toxic metabolic enc ephalopathy; EBENEZER Interval history: Patient is seen today for: Septic shock; Metabolic Acidosis; Acute Toxic metabolic encephalopathy; Acute renal failure; UTI (urinary tract infection) Seen and examined at bedside; 24hour events reviewed; nursing and respiratory care staff consulted; no adverse overnight events reported to me; resting peacefully in bed; more alert at time of my evaluation; still with poor appetite; no N/V/F/C Objective Vital Signs - 12hr 06/02/20 06/02/20 06/02/20 05:11 10:00 12:47 Temperature 98.0 F 98.2 F Pulse Rate 84 84 Pulse Rate [ 83 From Monitor] Respiratory 18 20 18 Rate Blood Pressure 139/67 Blood Pressure 117/61 [Left] O2 Sat by Pulse 95 98 98 Oximetry Constitutional: no acute distress, other (elderly looking male with normal respiratory effort at rest) Eyes: non-icteric ENT: oropharynx moist Neck: supple, no lymphadenopathy, no JVD Effort: normal Ascultation: Bilateral: clear, diminished breath sounds Percussion: Bilateral: not dull Cardiovascular: regular rate and rhythm Gastrointestinal: normoactive bowel sounds, soft, tender (mild, LLQ, RUQ), non- distended (protuberant'), other (RUQ J-P drain) Integumentary: normal Extremities: no cyanosis, no edema, pink and warm, pulses normal Neurologic: non-focal exam (grossly), pupils equal and round, CN II-XII normal, other (slow to respond) Psychiatric: other (flat affect) CBC and BMP: 05/26/20 04:16 05/31/20 05:37 ABG, PT/INR, D-dimer: PT/INR, D-dimer PT 15.5 Sec. (12.2-14.9) H 05/22/20 09:10 INR 1.25 (0.87-1.13) H 05/22/20 09:10 Abnormal lab findings: Abnormal Labs 05/22/20 05/22/20 05/22/20 09:10 09:10 09:10 WBC 17.9 H RBC 3.60 L Hgb 8.7 L Hct 26.8 L MCV 74 L MCH 24 L RDW 24.0 H Plt Count 621 H Lymph % (Auto) [place] # (Auto) Seg Neutrophils % Seg Neuts % (Manual) 85.0 H Lymphocytes % (Manual) 5.0 L Monocytes % (Manual) 8.0 H Eosinophils % (Manual) Seg Neutrophils # Seg Neutrophils # Man 15.2 H Lymphocytes # (Manual) 0.9 L Monocytes # (Manual) 1.4 H Eosinophils # (Manual) PT INR APTT Sodium Potassium Chloride Carbon Dioxide BUN Creatinine Glucose POC Glucose Lactic Acid 3.30 H* Calcium Phosphorus Magnesium Direct Bilirubin Alkaline Phosphatase Troponin T 0.271 H* NT-Pro-B Natriuret Pep Total Protein Albumin HDL Cholesterol 39 L Urine pH Urine WBC (Auto) Urine Creatinine Crossmatch 05/22/20 05/22/20 05/22/20 09:10 09:10 09:32 WBC RBC Hgb Hct MCV MCH RDW Plt Count Lymph % (Auto) [place] # (Auto) Seg Neutrophils % Seg Neuts % (Manual) Lymphocytes % (Manual) Monocytes % (Manual) Eosinophils % (Manual) Seg Neutrophils # Seg Neutrophils # Man Lymphocytes # (Manual) Monocytes # (Manual) Eosinophils # (Manual) PT 15.5 H INR 1.25 H APTT 47.6 H Sodium 136 L Potassium Chloride 97.2 L Carbon Dioxide BUN 36 H Creatinine 3.8 H Glucose 133 H POC Glucose Lactic Acid Calcium 7.8 L Phosphorus Magnesium Direct Bilirubin 0.3 H Alkaline Phosphatase 248 H Troponin T NT-Pro-B Natriuret Pep 1448 H Total Protein Albumin 2.8 L HDL Cholesterol Urine pH 8.0 H Urine WBC (Auto) > 182.0 H Urine Creatinine Crossmatch 05/22/20 05/22/20 05/22/20 09:49 11:42 19:48 WBC RBC Hgb Hct MCV MCH RDW Plt Count Lymph % (Auto) [place] # (Auto) Seg Neutrophils % Seg Neuts % (Manual) Lymphocytes % (Manual) Monocytes % (Manual) Eosinophils % (Manual) Seg Neutrophils # Seg Neutrophils # Man Lymphocytes # (Manual) Monocytes # (Manual) Eosinophils # (Manual) PT INR APTT Sodium Potassium Chloride Carbon Dioxide BUN Creatinine Glucose POC Glucose Lactic Acid 3.70 H* 2.10 H* Calcium Phosphorus Magnesium Direct Bilirubin Alkaline Phosphatase Troponin T NT-Pro-B Natriuret Pep Total Protein Albumin HDL Cholesterol Urine pH Urine WBC (Auto) Urine Creatinine 48.1 H Crossmatch 05/22/20 05/23/20 05/23/20 23:27 05:05 05:05 WBC 20.3 H RBC 2.73 L Hgb 6.6 L Hct 20.8 L D MCV 76 L MCH 24 L RDW 23.9 H Plt Count 546 H Lymph % (Auto) 11.5 L [place] # (Auto) 1.2 H Seg Neutrophils % 81.5 H Seg Neuts % (Manual) Lymphocytes % (Manual) Monocytes % (Manual) Eosinophils % (Manual) Seg Neutrophils # 16.5 H Seg Neutrophils # Man Lymphocytes # (Manual) Monocytes # (Manual) Eosinophils # (Manual) PT INR APTT Sodium Potassium Chloride 112.5 H Carbon Dioxide 20 L BUN 26 H Creatinine 1.8 H D Glucose 135 H POC Glucose 124 H Lactic Acid Calcium 6.8 L Phosphorus Magnesium Direct Bilirubin Alkaline Phosphatase Troponin T NT-Pro-B Natriuret Pep Total Protein Albumin HDL Cholesterol Urine pH Urine WBC (Auto) Urine Creatinine Crossmatch 05/23/20 05/23/20 05/23/20 05:38 06:10 11:33 WBC RBC Hgb Hct MCV MCH RDW Plt Count Lymph % (Auto) [place] # (Auto) Seg Neutrophils % Seg Neuts % (Manual) Lymphocytes % (Manual) Monocytes % (Manual) Eosinophils % (Manual) Seg Neutrophils # Seg Neutrophils # Man Lymphocytes # (Manual) Monocytes # (Manual) Eosinophils # (Manual) PT INR APTT Sodium Potassium Chloride Carbon Dioxide BUN Creatinine Glucose POC Glucose 112 H 128 H Lactic Acid Calcium Phosphorus Magnesium Direct Bilirubin Alkaline Phosphatase Troponin T NT-Pro-B Natriuret Pep Total Protein Albumin HDL Cholesterol Urine pH Urine WBC (Auto) Urine Creatinine Crossmatch See Detail 05/23/20 05/23/20 05/23/20 14:45 17:49 23:34 WBC RBC Hgb 8.4 L Hct 26.4 L MCV MCH RDW Plt Count Lymph % (Auto) [place] # (Auto) Seg Neutrophils % Seg Neuts % (Manual) Lymphocytes % (Manual) Monocytes % (Manual) Eosinophils % (Manual) Seg Neutrophils # Seg Neutrophils # Man Lymphocytes # (Manual) Monocytes # (Manual) Eosinophils # (Manual) PT INR APTT Sodium Potassium Chloride Carbon Dioxide BUN Creatinine Glucose POC Glucose 112 H 116 H Lactic Acid Calcium Phosphorus Magnesium Direct Bilirubin Alkaline Phosphatase Troponin T NT-Pro-B Natriuret Pep Total Protein Albumin HDL Cholesterol Urine pH Urine WBC (Auto) Urine Creatinine Crossmatch 05/24/20 05/24/20 05/25/20 05:45 05:45 05:00 WBC 18.4 H RBC 3.35 L Hgb 8.6 L Hct 26.5 L MCV 79 L MCH 26 L RDW 23.9 H Plt Count Lymph % (Auto) [place] # (Auto) Seg Neutrophils % Seg Neuts % (Manual) 81.0 H Lymphocytes % (Manual) 12.0 L Monocytes % (Manual) Eosinophils % (Manual) Seg Neutrophils # Seg Neutrophils # Man 14.9 H Lymphocytes # (Manual) Monocytes # (Manual) 1.3 H Eosinophils # (Manual) PT INR APTT Sodium Potassium 3.1 L Chloride 109.5 H Carbon Dioxide BUN Creatinine Glucose 111 H POC Glucose Lactic Acid Calcium 6.8 L 7.2 L Phosphorus Magnesium 1.00 L Direct Bilirubin Alkaline Phosphatase Troponin T NT-Pro-B Natriuret Pep Total Protein Albumin HDL Cholesterol Urine pH Urine WBC (Auto) Urine Creatinine Crossmatch 05/25/20 05/25/20 05/25/20 09:34 11:31 18:25 WBC 12.7 H RBC 3.14 L Hgb 8.0 L Hct 24.6 L MCV 78 L MCH 25 L RDW 25.0 H Plt Count Lymph % (Auto) [place] # (Auto) Seg Neutrophils % Seg Neuts % (Manual) 94.0 H Lymphocytes % (Manual) 3.0 L Monocytes % (Manual) Eosinophils % (Manual) Seg Neutrophils # Seg Neutrophils # Man 11.9 H Lymphocytes # (Manual) 0.4 L Monocytes # (Manual) Eosinophils # (Manual) PT INR APTT Sodium Potassium Chloride Carbon Dioxide BUN Creatinine Glucose POC Glucose 63 L 57 L Lactic Acid Calcium Phosphorus Magnesium Direct Bilirubin Alkaline Phosphatase Troponin T NT-Pro-B Natriuret Pep Total Protein Albumin HDL Cholesterol Urine pH Urine WBC (Auto) Urine Creatinine Crossmatch 05/25/20 05/26/20 05/26/20 23:44 04:16 04:16 WBC RBC 3.07 L Hgb 8.0 L Hct 24.2 L MCV 79 L MCH 26 L RDW 24.8 H Plt Count Lymph % (Auto) [place] # (Auto) Seg Neutrophils % Seg Neuts % (Manual) 85.0 H Lymphocytes % (Manual) 8.0 L Monocytes % (Manual) Eosinophils % (Manual) 5.0 H Seg Neutrophils # Seg Neutrophils # Man 7.9 H Lymphocytes # (Manual) 0.7 L Monocytes # (Manual) Eosinophils # (Manual) 0.5 H PT INR APTT Sodium Potassium 3.4 L Chloride 108.6 H Carbon Dioxide BUN Creatinine 0.7 L Glucose 101 H POC Glucose 52 L Lactic Acid Calcium 7.7 L Phosphorus Magnesium Direct Bilirubin Alkaline Phosphatase Troponin T NT-Pro-B Natriuret Pep Total Protein Albumin HDL Cholesterol Urine pH Urine WBC (Auto) Urine Creatinine Crossmatch 05/26/20 05/27/20 05/27/20 12:41 00:45 06:23 WBC RBC Hgb Hct MCV MCH RDW Plt Count Lymph % (Auto) [place] # (Auto) Seg Neutrophils % Seg Neuts % (Manual) Lymphocytes % (Manual) Monocytes % (Manual) Eosinophils % (Manual) Seg Neutrophils # Seg Neutrophils # Man Lymphocytes # (Manual) Monocytes # (Manual) Eosinophils # (Manual) PT INR APTT Sodium 135 L Potassium 3.4 L Chloride Carbon Dioxide BUN Creatinine Glucose POC Glucose 64 L Lactic Acid Calcium 7.4 L Phosphorus Magnesium Direct Bilirubin Alkaline Phosphatase 566 H Troponin T NT-Pro-B Natriuret Pep Total Protein 5.3 L D Albumin 1.9 L HDL Cholesterol Urine pH Urine WBC (Auto) Urine Creatinine Crossmatch 05/28/20 05/29/20 05/29/20 04:35 17:01 18:54 WBC RBC Hgb Hct MCV MCH RDW Plt Count Lymph % (Auto) [place] # (Auto) Seg Neutrophils % Seg Neuts % (Manual) Lymphocytes % (Manual) Monocytes % (Manual) Eosinophils % (Manual) Seg Neutrophils # Seg Neutrophils # Man Lymphocytes # (Manual) Monocytes # (Manual) Eosinophils # (Manual) PT INR APTT Sodium Potassium Chloride Carbon Dioxide BUN Creatinine 0.7 L Glucose POC Glucose 57 L 135 H Lactic Acid Calcium 7.7 L Phosphorus Magnesium Direct Bilirubin Alkaline Phosphatase Troponin T NT-Pro-B Natriuret Pep Total Protein Albumin HDL Cholesterol Urine pH Urine WBC (Auto) Urine Creatinine Crossmatch 05/30/20 05/30/20 05/30/20 05:42 11:30 23:28 WBC RBC Hgb Hct MCV MCH RDW Plt Count Lymph % (Auto) [place] # (Auto) Seg Neutrophils % Seg Neuts % (Manual) Lymphocytes % (Manual) Monocytes % (Manual) Eosinophils % (Manual) Seg Neutrophils # Seg Neutrophils # Man Lymphocytes # (Manual) Monocytes # (Manual) Eosinophils # (Manual) PT INR APTT Sodium Potassium 3.4 L Chloride Carbon Dioxide BUN 6 L Creatinine 0.6 L Glucose 105 H POC Glucose 51 L 55 L Lactic Acid Calcium 7.5 L Phosphorus 1.80 L Magnesium Direct Bilirubin Alkaline Phosphatase Troponin T NT-Pro-B Natriuret Pep Total Protein Albumin HDL Cholesterol Urine pH Urine WBC (Auto) Urine Creatinine Crossmatch 05/31/20 05/31/20 05:37 11:49 WBC RBC Hgb Hct MCV MCH RDW Plt Count Lymph % (Auto) [place] # (Auto) Seg Neutrophils % Seg Neuts % (Manual) Lymphocytes % (Manual) Monocytes % (Manual) Eosinophils % (Manual) Seg Neutrophils # Seg Neutrophils # Man Lymphocytes # (Manual) Monocytes # (Manual) Eosinophils # (Manual) PT INR APTT Sodium 136 L Potassium Chloride Carbon Dioxide BUN 6 L Creatinine 0.6 L Glucose POC Glucose 115 H Lactic Acid Calcium 7.5 L Phosphorus Magnesium Direct Bilirubin Alkaline Phosphatase Troponin T NT-Pro-B Natriuret Pep Total Protein Albumin HDL Cholesterol Urine pH Urine WBC (Auto) Urine Creatinine Crossmatch Allied health notes reviewed: nursing
--- NOTE | 2020-06-02 15:21 | Discharge Summary ---
Providers - Providers Date of Admission: 05/22/20 12:14 Date of discharge: 06/02/20 Attending physician: TL HINSON 05/22/20 12:14 Consult to Physician [CONS] Routine Comment: Consulting Provider: KARLENE WATSON Physician Instructions: Reason For Exam: sepsis 05/22/20 14:25 Consult to Physician [CONS] Routine Comment: Consulting Provider: ZELALEM SIMPSON Physician Instructions: Reason For Exam: EBENEZER 05/24/20 09:40 Consult to Physician [CONS] Routine Comment: Consulting Provider: SURESH CONNORS Physician Instructions: Reason For Exam: sepsis 05/24/20 14:23 Consult to Physician [CONS] Routine Comment: Consulting Provider: ARIANNA PEACE Physician Instructions: Reason For Exam: abdominal pain 05/25/20 10:29 Occupational Therapy Evaluate and Treat [CONS] Routine Comment: Reason For Exam: Debility Physical Therapy Evaluation and Treat [CONS] Routine Comment: Reason For Exam: Debility 05/25/20 12:17 Speech Therapy Evaluation and Treat [CONS] Routine Reason For Exam: oropharyngeal dysphagia 05/25/20 15:41 Consult to Physician [CONS] Routine Comment: Consulting Provider: CRYSTAL BRISCOE Physician Instructions: Reason For Exam: possible choledoco, MRCP nondiagnostis 05/26/20 01:33 Consult to Wound/ET Nurse [CONS] Routine Reason For Exam: wound eval 05/27/20 09:37 Consult to Dietitian/Nutrition [CONS] Routine Physician Instructions: Reason For Exam: Reason for Consult: Malnutrition Primary care physician: NOE LYN Hospitalization Condition: Stable Hospital course: The patient is a 69 YO male with history significant for HTN, 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 Patient was found to have suprapubic tenderness and temp of 101.4 F. In the ED patient was found to be hypotensive with a systolic blood pressure in the 80s and tachycardic. Labs significant for wbc 18, BUN 36, Creat 3.8 and Lactate 3.7. Patient was found to have UTI, septic shock, EBENEZER and toxic metabolic encephalopathy. Patient was admitted to ICU and initiated on sepsis protocol and initiated on IV pressor. Hospital course: 05/23/2020 -Septic shock likely due to UTI, patient is on IV cefepime, IV fluid and pressor support. Critical care consulted -Acute renal failure, improved with IV fluids, nephrology consulted 05/24/2020 -Admitted for septic shock due to UTI, patient is on IV cefepime, IV fluids, pressor support, ID consulted. -Acute renal failure IV fluids and nephrology consult -Patient is saturating 100% on room air -Patient was alert 05/25/2020 -Patient is on IV cefepime and ID increase the dose. -Acute renal failure is improving -Patient had history of cholecystostomy tube placement and was seen by general surgery and order imaging study. -Patient is still on pressors for low blood pressure 05/27/2020 -Patient was admitted for septic shock and he is doing well. Continue with cefepime while he is here and can be discharged with po Levaquin to finish a to mireya of 7 days course of antibiotics. He was evaluated by general surgery and imaging was done and no further work-up is needed. GI also saw the patient. Patient is stable for discharge Case management is working for placement. Patient's family does not want him to go back to the facility where he came from. 05/28/2020 patient is alert today able to make needs known at this particular time. Recently admitted for septic shock. Currently treated with cefepime while in house. Awaiting placement will change to Levaquin to complete 6 more days of antibiotics. Stable for discharge awaiting placement Case management. 05/29/2020. Patient doing well able to make all needs known no new concerns. Patient wants to know that he was doing well. No more in shock. Awaiting placement. Patient tolerated change to Levaquin well. Patient is not eating solid foods that well will change to pured diet and see how effective that may be. 05/30/2020. Patient resting comfortably no acute distress. Hospital course uncomplicated over p.m. Patient doing better with change in the consistency of diet. Currently awaiting placement. 05/31/2020. Etiology of acute kidney injury secondary to vasomotor nephropathy/ATN in the setting of sepsis/septic shock. CT abdomen negative for hydronephrosis. ID recommended cefepime 2 g every 8 hours with completion total of 7 days. Case management working on placement. 06/01/2020. Continue IV antibiotics per ID recommendations. Case management still working on placement. 06/02/20: Negative Covid test. Patient will be discharged to [facility] and rehab facility in stable condition with outpatient follow-up. Discharge diagnosis: --Sepsis with shock, status post empiric antibiotic and off pressors --UTI, treated with antibiotics --EBENEZER, vasomotor nephropathy and ATN in the setting of septic shock. CT abdomen negative for hydro --toxic metabolic encephalopathy, CT head without any acute process --Anemia, likely due to chronic disease --Cholecystitis, inflammation seen on CT, cholecystectomy tube in place on admission. Need further outpatient follow-up with general surgery --Hypokalemia, repleted --Hypophosphatemia, repleted --Hyponatremia, likely due to dehydration resolved --Elevated, troponin, likely NSTEMI type II in the setting of sepsis and EBENEZER. 2D echocardiogram with preserved EF Disposition: [id number] Time spent for discharge: 34 minutes Core Measure Documentation - Palliative Care Palliative Care/ Comfort Measures: Not Applicable - Core Measures Any of the following diagnoses?: history only Exam - Physical Exam Narrative exam: General appearance: Present: no acute distress, well-nourished - EENT Eyes: Present: PERRL, EOM intact ENT: hearing intact, clear oral mucosa, dentition normal - Neck Neck: Present: supple, normal ROM - Respiratory Respiratory effort: normal Respiratory: bilateral: CTA - Cardiovascular Rhythm: regular Heart Sounds: Present: S1 & S2. Absent: gallop, rub - Extremities Extremities: no ischemia, No edema, Full ROM - Abdominal General gastrointestinal: soft, non-tender, non-distended, normal bowel sounds. Cholecystectomy tube in place - Integumentary Integumentary: Present: clear, warm, dry - Neurologic Neurologic: CNII-XII intact, moves all extremities - Constitutional Vitals: Temp Pulse Resp BP Pulse Ox 98.2 F 84 18 117/61 98 06/02/20 12:47 06/02/20 12:47 06/02/20 12:47 06/02/20 12:47 06/02/20 12:47 Plan Activity: fall precautions Weight Bearing Status: Weight Bear as Tolerated Diet: low fat, low salt Wound: keep clean and dry Special Instructions: record daily BP diary, record blood sugar diary Follow up with: ARIANNA PEACE DO [Staff Physician] - 7 Days MINA DIANE MD [Staff Physician] - 7 Days Prescriptions: levoFLOXacin [Levaquin] 750 mg PO QDAY #5 tablet
[2020-06-03] MEDS: HYDROmorphone 1 MG/1 ML INJ IV PRN (00:25)
[2020-06-03] MEDS: HEPARIN 5,000 UNIT/1 ML VIAL SUB-Q SCH ×2 (09:45→21:55)
[2020-06-03] MEDS: CLOPIDOGREL 75 MG TAB PO SCH (09:46)
[2020-06-03] MEDS: PANTOPRAZOLE 40 MG TAB PO SCH ×2 (09:46→21:54)
[2020-06-03] MEDS: ASPIRIN 81 MG TAB CHEW PO SCH (09:46)
--- NOTE | 2020-06-03 11:55 | Progress Note ---
Assessment and Plan --Sepsis with shock, status post empiric antibiotic and off pressors --UTI, treated with antibiotics --EBENEZER, vasomotor nephropathy and ATN in the setting of septic shock. CT abdomen negative for hydro --toxic metabolic encephalopathy, CT head without any acute process --Anemia, likely due to chronic disease --Cholecystitis, inflammation seen on CT, cholecystectomy tube in place on admission. Need further outpatient follow-up with general surgery --Hypokalemia, repleted --Hypophosphatemia, repleted --Hyponatremia, likely due to dehydration resolved --Elevated, troponin, likely NSTEMI type II in the setting of sepsis and EBENEZER. 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 Patient was found to have suprapubic tenderness and temp of 101.4 F. In the ED patient was found to be hypotensive with a systolic blood pressure in the 80s and tachycardic. Labs significant for wbc 18, BUN 36, Creat 3.8 and Lactate 3.7. Patient was found to have UTI, septic shock, EBENEZER and toxic metabolic encephalopathy. Patient was admitted to ICU and initiated on sepsis protocol and initiated on IV pressor. Hospital course: 05/23/2020 -Septic shock likely due to UTI, patient is on IV cefepime, IV fluid and pressor support. Critical care consulted -Acute renal failure, improved with IV fluids, nephrology consulted 05/24/2020 -Admitted for septic shock due to UTI, patient is on IV cefepime, IV fluids, pressor support, ID consulted. -Acute renal failure IV fluids and nephrology consult -Patient is saturating 100% on room air -Patient was alert 05/25/2020 -Patient is on IV cefepime and ID increase the dose. -Acute renal failure is improving -Patient had history of cholecystostomy tube placement and was seen by general surgery and order imaging study. -Patient is still on pressors for low blood pressure 05/27/2020 -Patient was admitted for septic shock and he is doing well. Continue with cefepime while he is here and can be discharged with po Levaquin to finish a total of 7 days course of antibiotics. He was evaluated by general surgery and imaging was done and no further work-up is needed. GI also saw the patient. Patient is stable for discharge Case management is working for placement. Patient's family does not want him to go back to the facility where he came from. 05/28/2020 patient is alert today able to make needs known at this particular time. Recently admitted for septic shock. Currently treated with cefepime while in house. Awaiting placement will change to Levaquin to complete 6 more days of antibiotics. Stable for discharge awaiting placement Case management. 05/29/2020. Patient doing well able to make all needs known no new concerns. Patient wants to know that he was doing well. No more in shock. Awaiting place ment. Patient tolerated change to Levaquin well. Patient is not eating solid foods that well will change to pured diet and see how effective that may be. 05/30/2020. Patient resting comfortably no acute distress. Hospital course uncomplicated over p.m. Patient doing better with change in the consistency of diet. Currently awaiting placement. 05/31/2020. Etiology of acute kidney injury secondary to vasomotor nephropathy/ATN in the setting of sepsis/septic shock. CT abdomen negative for hydronephrosis. ID recommended cefepime 2 g every 8 hours with completion total of 7 days. Case management working on placement. 06/01/2020. Continue IV antibiotics per ID recommendations. Case management still working on placement. 06/02/20: Negative Covid test. Patient planned discharged to [facility] and rehab facility in stable condition with outpatient follow-up. Placement waiting on financial agreement with the residential. bi manager and family in agreement. Subjective Date of service: 06/02/20 Principal diagnosis: Septic shock; Metabolic Acidosis; Ac, Toxic metabolic encephalopathy; EBENEZER Interval history: Patient seen and examined. Medical records and medication list reviewed. No acute event overnight noted by the RN. Patient denies any chest pain or difficulty breathing. Patient is tolerating diet. Discussed plan of care at bedside with patient's RN. Objective - Exam Narrative Exam: General appearance: Present: no acute distress, well-nourished - EENT Eyes: Present: PERRL, EOM intact ENT: hearing intact, clear oral mucosa, dentition normal - Neck Neck: Present: supple, normal ROM - Respiratory Respiratory effort: normal Respiratory: bilateral: CTA - Cardiovascular Rhythm: regular Heart Sounds: Present: S1 & S2. Absent: gallop, rub - Extremities Extremities: no ischemia, No edema, Full ROM - Abdominal General gastrointestinal: soft, non-tender, non-distended, normal bowel sounds. Cholecystectomy tube in place - Integumentary Integumentary: Present: clear, warm, dry - Neurologic Neurologic: CNII-XII intact, moves all extremities - Constitutional Vitals: Vital Signs - 12hr 06/03/20 06/03/20 06/03/20 00:02 00:25 04:37 Temperature 98.0 F 98.0 F Pulse Rate Respiratory 18 18 18 Rate Blood Pressure 135/64 103/55 Blood Pressure [Left] O2 Sat by Pulse Oximetry 06/03/20 08:00 Temperature 98.7 F Pulse Rate 68 Respiratory 20 Rate Blood Pressure Blood Pressure 148/78 [Left] O2 Sat by Pulse 98 Oximetry - Labs CBC & Chem 7: 05/26/20 04:16 05/31/20 05:37 HEART Score - HEART Score Troponin: Troponin T 0.271 ng/mL (0.00-0.029) H* 05/22/20 09:10
--- NOTE | 2020-06-03 14:12 | Progress Note ---
Assessment and Plan --Sepsis with shock, status post empiric antibiotic and off pressors --UTI, treated with antibiotics --EBENEZER, vasomotor nephropathy and ATN in the setting of septic shock. CT abdomen negative for hydro --toxic metabolic encephalopathy, CT head without any acute process --Anemia, likely due to chronic disease --Cholecystitis, inflammation seen on CT, cholecystectomy tube in place on admission. Need further outpatient follow-up with general surgery --Hypokalemia, repleted --Hypophosphatemia, repleted --Hyponatremia, likely due to dehydration resolved --Elevated, troponin, likely NSTEMI type II in the setting of sepsis and EBENEZER. 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 Patient was found to have suprapubic tenderness and temp of 101.4 F. In the ED patient was found to be hypotensive with a systolic blood pressure in the 80s and tachycardic. Labs significant for wbc 18, BUN 36, Creat 3.8 and Lactate 3.7. Patient was found to have UTI, septic shock, EBENEZER and toxic metabolic encephalopathy. Patient was admitted to ICU and initiated on sepsis protocol and initiated on IV pressor. Hospital course: 05/23/2020 -Septic shock likely due to UTI, patient is on IV cefepime, IV fluid and pressor support. Critical care consulted -Acute renal failure, improved with IV fluids, nephrology consulted 05/24/2020 -Admitted for septic shock due to UTI, patient is on IV cefepime, IV fluids, pressor support, ID consulted. -Acute renal failure IV fluids and nephrology consult -Patient is saturating 100% on room air -Patient was alert 05/25/2020 -Patient is on IV cefepime and ID increase the dose. -Acute renal failure is improving -Patient had history of cholecystostomy tube placement and was seen by general surgery and order imaging study. -Patient is still on pressors for low blood pressure 05/27/2020 -Patient was admitted for septic shock and he is doing well. Continue with cefepime while he is here and can be discharged with po Levaquin to finish a total of 7 days course of antibiotics. He was evaluated by general surgery and imaging was done and no further work-up is needed. GI also saw the patient. Patient is stable for discharge Case management is working for placement. Patient's family does not want him to go back to the facility where he came from. 05/28/2020 patient is alert today able to make needs known at this particular time. Recently admitted for septic shock. Currently treated with cefepime while in house. Awaiting placement will change to Levaquin to complete 6 more days of antibiotics. Stable for discharge awaiting placement Case management. 05/29/2020. Patient doing well able to make all needs known no new concerns. Patient wants to know that he was doing well. No more in shock. Awaiting place ment. Patient tolerated change to Levaquin well. Patient is not eating solid foods that well will change to pured diet and see how effective that may be. 05/30/2020. Patient resting comfortably no acute distress. Hospital course uncomplicated over p.m. Patient doing better with change in the consistency of diet. Currently awaiting placement. 05/31/2020. Etiology of acute kidney injury secondary to vasomotor nephropathy/ATN in the setting of sepsis/septic shock. CT abdomen negative for hydronephrosis. ID recommended cefepime 2 g every 8 hours with completion total of 7 days. Case management working on placement. 06/01/2020. Continue IV antibiotics per ID recommendations. Case management still working on placement. 06/02/20: Negative Covid test. Patient planned discharged to [facility] and rehab facility in stable condition with outpatient follow-up. Placement waiting on financial agreement with the alf. software engineering project manager and family in agreement. 06/03: Discharge pending on placement Subjective Date of service: 06/03/20 Principal diagnosis: Septic shock; Metabolic Acidosis; Ac, Toxic metabolic encephalopathy; EBENEZER Interval history: Patient seen and examined. Medical records and medication list reviewed. No acute event overnight noted by the RN. Patient is tolerating diet but has poor appetite Discussed plan of care at bedside with patient's RN. Objective - Exam Narrative Exam: General appearance: Present: no acute distress, well-nourished - EENT Eyes: Present: PERRL, EOM intact ENT: hearing intact, clear oral mucosa, dentition normal - Neck Neck: Present: supple, normal ROM - Respiratory Respiratory effort: normal Respiratory: bilateral: CTA - Cardiovascular Rhythm: regular Heart Sounds: Present: S1 & S2. Absent: gallop, rub - Extremities Extremities: no ischemia, No edema, Full ROM - Abdominal General gastrointestinal: soft, non-tender, non-distended, normal bowel sounds. Cholecystectomy tube in place - Integumentary Integumentary: Present: clear, warm, dry - Neurologic Neurologic: CNII-XII intact, moves all extremities - Constitutional Vitals: Vital Signs - 12hr 06/03/20 06/03/20 06/03/20 04:37 08:00 10:00 Temperature 98.0 F 98.7 F Pulse Rate 68 Respiratory 18 20 Rate Blood Pressure 103/55 Blood Pressure 148/78 [Left] O2 Sat by Pulse 98 98 Oximetry 06/03/20 13:24 Temperature 97.9 F Pulse Rate 86 Respiratory Rate Blood Pressure 101/61 Blood Pressure [Left] O2 Sat by Pulse 97 Oximetry - Labs CBC & Chem 7: 05/26/20 04:16 05/31/20 05:37 HEART Score - HEART Score Troponin: Troponin T 0.271 ng/mL (0.00-0.029) H* 05/22/20 09:10
[2020-06-03] MEDS: DEXTROSE 5% IN WATER 1,000 ML IV SCH (15:00)
[2020-06-04] MEDS: DEXTROSE 5% IN WATER 1,000 ML IV SCH ×2 (04:25→16:22)
[2020-06-04] MEDS: PANTOPRAZOLE 40 MG TAB PO SCH ×2 (09:54→21:52)
[2020-06-04] MEDS: HEPARIN 5,000 UNIT/1 ML VIAL SUB-Q SCH ×2 (09:54→21:52)
[2020-06-04] MEDS: CLOPIDOGREL 75 MG TAB PO SCH (09:54)
[2020-06-04] MEDS: ASPIRIN 81 MG TAB CHEW PO SCH (09:54)
--- NOTE | 2020-06-04 12:27 | Progress Note ---
Assessment and Plan --Sepsis with shock, status post empiric antibiotic and off pressors --UTI, treated with antibiotics --EBENEZER, vasomotor nephropathy and ATN in the setting of septic shock. CT abdomen negative for hydro --toxic metabolic encephalopathy, CT head without any acute process --Anemia, likely due to chronic disease --Cholecystitis, inflammation seen on CT, cholecystectomy tube in place on admission. Need further outpatient follow-up with general surgery --Hypokalemia, repleted --Hypophosphatemia, repleted --Hyponatremia, likely due to dehydration resolved --Elevated, troponin, likely NSTEMI type II in the setting of sepsis and EBENEZER. 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 Patient was found to have suprapubic tenderness and temp of 101.4 F. In the ED patient was found to be hypotensive with a systolic blood pressure in the 80s and tachycardic. Labs significant for wbc 18, BUN 36, Creat 3.8 and Lactate 3.7. Patient was found to have UTI, septic shock, EBENEZER and toxic metabolic encephalopathy. Patient was admitted to ICU and initiated on sepsis protocol and initiated on IV pressor. Hospital course: 05/23/2020 -Septic shock likely due to UTI, patient is on IV cefepime, IV fluid and pressor support. Critical care consulted -Acute renal failure, improved with IV fluids, nephrology consulted 05/24/2020 -Admitted for septic shock due to UTI, patient is on IV cefepime, IV fluids, pressor support, ID consulted. -Acute renal failure IV fluids and nephrology consult -Patient is saturating 100% on room air -Patient was alert 05/25/2020 -Patient is on IV cefepime and ID increase the dose. -Acute renal failure is improving -Patient had history of cholecystostomy tube placement and was seen by general surgery and order imaging study. -Patient is still on pressors for low blood pressure 05/27/2020 -Patient was admitted for septic shock and he is doing well. Continue with cefepime while he is here and can be discharged with po Levaquin to finish a total of 7 days course of antibiotics. He was evaluated by general surgery and imaging was done and no further work-up is needed. GI also saw the patient. Patient is stable for discharge Case management is working for placement. Patient's family does not want him to go back to the facility where he came from. 05/28/2020 patient is alert today able to make needs known at this particular time. Recently admitted for septic shock. Currently treated with cefepime while in house. Awaiting placement will change to Levaquin to complete 6 more days of antibiotics. Stable for discharge awaiting placement Case management. 05/29/2020. Patient doing well able to make all needs known no new concerns. Patient wants to know that he was doing well. No more in shock. Awaiting place ment. Patient tolerated change to Levaquin well. Patient is not eating solid foods that well will change to pured diet and see how effective that may be. 05/30/2020. Patient resting comfortably no acute distress. Hospital course uncomplicated over p.m. Patient doing better with change in the consistency of diet. Currently awaiting placement. 05/31/2020. Etiology of acute kidney injury secondary to vasomotor nephropathy/ATN in the setting of sepsis/septic shock. CT abdomen negative for hydronephrosis. ID recommended cefepime 2 g every 8 hours with completion total of 7 days. Case management working on placement. 06/01/2020. Continue IV antibiotics per ID recommendations. Case management still working on placement. 06/02/20: Negative Covid test. Patient planned discharged to [facility] facility in stable condition with outpatient follow-up. Placement waiting on financial agreement with the [facility]. specialist managers and family in agreement. 06/03: Discharge pending on placement 06/04: Pending placement Subjective Date of service: 06/04/20 Principal diagnosis: Septic shock; Metabolic Acidosis; Ac, Toxic metabolic encephalopathy; EBENEZER Interval history: Patient seen and examined. Medical records and medication list reviewed. No acute event overnight noted by the RN. Patient is tolerating diet but has poor intake Discussed plan of care at bedside with patient's RN. Objective - Exam Narrative Exam: General appearance: Present: no acute distress, elderly white male - EENT Eyes: Present: PERRL, EOM intact ENT: hearing intact, clear oral mucosa, dentition normal - Neck Neck: Present: supple, normal ROM - Respiratory Respiratory effort: normal Respiratory: bilateral: CTA - Cardiovascular Rhythm: regular Heart Sounds: Present: S1 & S2. Absent: gallop, rub - Extremities Extremities: no ischemia, No edema, Full ROM - Abdominal General gastrointestinal: soft, non-tender, non-distended, normal bowel sounds. Cholecystectomy tube in place - Integumentary Integumentary: Present: clear, warm, dry - Neurologic Neurologic: CNII-XII intact, right sided weakness - POA - Constitutional Vitals: Vital Signs - 12hr 06/04/20 06/04/20 06/04/20 03:59 07:00 08:15 Temperature 98.1 F 97.9 F Pulse Rate 86 109 H 86 Pulse Rate [ From Monitor] Respiratory 20 18 Rate Blood Pressure 113/57 125/58 O2 Sat by Pulse 96 99 Oximetry 06/04/20 10:00 Temperature Pulse Rate Pulse Rate [ 109 H From Monitor] Respiratory Rate Blood Pressure O2 Sat by Pulse Oximetry - Labs CBC & Chem 7: 06/10/20 05:12 06/10/20 05:12 HEART Score - HEART Score Troponin: Troponin T 0.271 ng/mL (0.00-0.029) H* 05/22/20 09:10
--- NOTE | 2020-06-04 15:21 | Progress Note ---
Assessment and Plan Septic shock Metabolic Acidosis Acute Toxic metabolic encephalopathy Acute renal failure UTI (urinary tract infection) Acute Cystitis - complete antiinfective's per ID (cefepime 2 gms IV q8h X 7 days) - will need outpatient surgery f/up - continue fall precautions - continue care as below otherwise; - continue empiric Cefepime (trend lactate, procalcitonin to aid clinical decision making) - continue accuchecks with glycemic control per SSI for target blood glucose of < 180 mg/dL; avoid hypoglycemia - continue to wean supplemental oxygen for target O2 sat's > 92% acutely - aspiration precautions - prn bronchodilators with pulmonary hygiene per RT - avoid nephrotoxins, renally dose all medications - avoid benzodiazepine's, reduce the possibility of delirium - prn analgesia per pain score - Maintenance of sleep-wake cycle, avoid delirium - aspiration precautions - G.I. & VTE prophylaxis - PT/OT/ROM exercises - mobility protocols for pressure ulcer prophylaxis - Monitor hemodynamics closely - continue other care per attending / other consultants - discharge planning ongoing concurrently .... Re-evaluate in am & prn Subjective Date of service: 06/03/20 Principal diagnosis: Septic shock; Metabolic Acidosis; Ac, Toxic metabolic enc ephalopathy; EBENEZER Interval history: LATE ENTRY NOTE FOR DOS 06/03/2020 Patient is seen today for: Septic shock; Metabolic Acidosis; Acute Toxic metabolic encephalopathy; Acute renal failure; UTI (urinary tract infection) Seen and examined at bedside; 24hour events reviewed; nursing and respiratory care staff consulted; no adverse overnight events reported to me; resting peacefully in bed; tolerating antibiotics; denies chest pain or SOB; discharge planning ongoing for SNF Objective Vital Signs - 12hr 06/04/20 06/04/20 06/04/20 03:59 07:00 08:15 Temperature 98.1 F 97.9 F Pulse Rate 86 109 H 86 Pulse Rate [ From Monitor] Respiratory 20 18 Rate Blood Pressure 113/57 125/58 O2 Sat by Pulse 96 99 Oximetry 06/04/20 06/04/20 10:00 12:03 Temperature 97.2 F L Pulse Rate 102 H Pulse Rate [ 109 H From Monitor] Respiratory 20 Rate Blood Pressure 123/60 O2 Sat by Pulse 98 Oximetry Constitutional: no acute distress, other (elderly looking male with normal respiratory effort at rest) Eyes: non-icteric ENT: oropharynx moist Neck: supple, no lymphadenopathy, no JVD Effort: normal Ascultation: Bilateral: clear, diminished breath sounds Percussion: Bilateral: not dull Cardiovascular: regular rate and rhythm Gastrointestinal: normoactive bowel sounds, soft, tender (mild, LLQ, RUQ), non- distended (protuberant'), other (RUQ J-P drain) Integumentary: normal Extremities: no cyanosis, no edema, pink and warm, pulses normal Neurologic: non-focal exam (grossly), pupils equal and round, CN II-XII normal, other (slow to respond) Psychiatric: other (flat affect) CBC and BMP: 05/26/20 04:16 05/31/20 05:37 ABG, PT/INR, D-dimer: PT/INR, D-dimer PT 15.5 Sec. (12.2-14.9) H 05/22/20 09:10 INR 1.25 (0.87-1.13) H 05/22/20 09:10 Abnormal lab findings: Abnormal Labs 05/22/20 05/22/20 05/22/20 09:10 09:10 09:10 WBC 17.9 H RBC 3.60 L Hgb 8.7 L Hct 26.8 L MCV 74 L MCH 24 L RDW 24.0 H Plt Count 621 H Lymph % (Auto) Dickens # (Auto) Seg Neutrophils % Seg Neuts % (Manual) 85.0 H Lymphocytes % (Manual) 5.0 L Monocytes % (Manual) 8.0 H Eosinophils % (Manual) Seg Neutrophils # Seg Neutrophils # Man 15.2 H Lymphocytes # (Manual) 0.9 L Monocytes # (Manual) 1.4 H Eosinophils # (Manual) PT INR APTT Sodium Potassium Chloride Carbon Dioxide BUN Creatinine Glucose POC Glucose Lactic Acid 3.30 H* Calcium Phosphorus Magnesium Direct Bilirubin Alkaline Phosphatase Troponin T 0.271 H* NT-Pro-B Natriuret Pep Total Protein Albumin HDL Cholesterol 39 L Urine pH Urine WBC (Auto) Urine Creatinine Crossmatch 05/22/20 05/22/20 05/22/20 09:10 09:10 09:32 WBC RBC Hgb Hct MCV MCH RDW Plt Count Lymph % (Auto) Dickens # (Auto) Seg Neutrophils % Seg Neuts % (Manual) Lymphocytes % (Manual) Monocytes % (Manual) Eosinophils % (Manual) Seg Neutrophils # Seg Neutrophils # Man Lymphocytes # (Manual) Monocytes # (Manual) Eosinophils # (Manual) PT 15.5 H INR 1.25 H APTT 47.6 H Sodium 136 L Potassium Chloride 97.2 L Carbon Dioxide BUN 36 H Creatinine 3.8 H Glucose 133 H POC Glucose Lactic Acid Calcium 7.8 L Phosphorus Magnesium Direct Bilirubin 0.3 H Alkaline Phosphatase 248 H Troponin T NT-Pro-B Natriuret Pep 1448 H Total Protein Albumin 2.8 L HDL Cholesterol Urine pH 8.0 H Urine WBC (Auto) > 182.0 H Urine Creatinine Crossmatch 05/22/20 05/22/20 05/22/20 09:49 11:42 19:48 WBC RBC Hgb Hct MCV MCH RDW Plt Count Lymph % (Auto) Dickens # (Auto) Seg Neutrophils % Seg Neuts % (Manual) Lymphocytes % (Manual) Monocytes % (Manual) Eosinophils % (Manual) Seg Neutrophils # Seg Neutrophils # Man Lymphocytes # (Manual) Monocytes # (Manual) Eosinophils # (Manual) PT INR APTT Sodium Potassium Chloride Carbon Dioxide BUN Creatinine Glucose POC Glucose Lactic Acid 3.70 H* 2.10 H* Calcium Phosphorus Magnesium Direct Bilirubin Alkaline Phosphatase Troponin T NT-Pro-B Natriuret Pep Total Protein Albumin HDL Cholesterol Urine pH Urine WBC (Auto) Urine Creatinine 48.1 H Crossmatch 05/22/20 05/23/20 05/23/20 23:27 05:05 05:05 WBC 20.3 H RBC 2.73 L Hgb 6.6 L Hct 20.8 L D MCV 76 L MCH 24 L RDW 23.9 H Plt Count 546 H Lymph % (Auto) 11.5 L Dickens # (Auto) 1.2 H Seg Neutrophils % 81.5 H Seg Neuts % (Manual) Lymphocytes % (Manual) Monocytes % (Manual) Eosinophils % (Manual) Seg Neutrophils # 16.5 H Seg Neutrophils # Man Lymphocytes # (Manual) Monocytes # (Manual) Eosinophils # (Manual) PT INR APTT Sodium Potassium Chloride 112.5 H Carbon Dioxide 20 L BUN 26 H Creatinine 1.8 H D Glucose 135 H POC Glucose 124 H Lactic Acid Calcium 6.8 L Phosphorus Magnesium Direct Bilirubin Alkaline Phosphatase Troponin T NT-Pro-B Natriuret Pep Total Protein Albumin HDL Cholesterol Urine pH Urine WBC (Auto) Urine Creatinine Crossmatch 05/23/20 05/23/20 05/23/20 05:38 06:10 11:33 WBC RBC Hgb Hct MCV MCH RDW Plt Count Lymph % (Auto) Dickens # (Auto) Seg Neutrophils % Seg Neuts % (Manual) Lymphocytes % (Manual) Monocytes % (Manual) Eosinophils % (Manual) Seg Neutrophils # Seg Neutrophils # Man Lymphocytes # (Manual) Monocytes # (Manual) Eosinophils # (Manual) PT INR APTT Sodium Potassium Chloride Carbon Dioxide BUN Creatinine Glucose POC Glucose 112 H 128 H Lactic Acid Calcium Phosphorus Magnesium Direct Bilirubin Alkaline Phosphatase Troponin T NT-Pro-B Natriuret Pep Total Protein Albumin HDL Cholesterol Urine pH Urine WBC (Auto) Urine Creatinine Crossmatch See Detail 05/23/20 05/23/20 05/23/20 14:45 17:49 23:34 WBC RBC Hgb 8.4 L Hct 26.4 L MCV MCH RDW Plt Count Lymph % (Auto) Dickens # (Auto) Seg Neutrophils % Seg Neuts % (Manual) Lymphocytes % (Manual) Monocytes % (Manual) Eosinophils % (Manual) Seg Neutrophils # Seg Neutrophils # Man Lymphocytes # (Manual) Monocytes # (Manual) Eosinophils # (Manual) PT INR APTT Sodium Potassium Chloride Carbon Dioxide BUN Creatinine Glucose POC Glucose 112 H 116 H Lactic Acid Calcium Phosphorus Magnesium Direct Bilirubin Alkaline Phosphatase Troponin T NT-Pro-B Natriuret Pep Total Protein Albumin HDL Cholesterol Urine pH Urine WBC (Auto) Urine Creatinine Crossmatch 05/24/20 05/24/20 05/25/20 05:45 05:45 05:00 WBC 18.4 H RBC 3.35 L Hgb 8.6 L Hct 26.5 L MCV 79 L MCH 26 L RDW 23.9 H Plt Count Lymph % (Auto) Dickens # (Auto) Seg Neutrophils % Seg Neuts % (Manual) 81.0 H Lymphocytes % (Manual) 12.0 L Monocytes % (Manual) Eosinophils % (Manual) Seg Neutrophils # Seg Neutrophils # Man 14.9 H Lymphocytes # (Manual) Monocytes # (Manual) 1.3 H Eosinophils # (Manual) PT INR APTT Sodium Potassium 3.1 L Chloride 109.5 H Carbon Dioxide BUN Creatinine Glucose 111 H POC Glucose Lactic Acid Calcium 6.8 L 7.2 L Phosphorus Magnesium 1.00 L Direct Bilirubin Alkaline Phosphatase Troponin T NT-Pro-B Natriuret Pep Total Protein Albumin HDL Cholesterol Urine pH Urine WBC (Auto) Urine Creatinine Crossmatch 05/25/20 05/25/20 05/25/20 09:34 11:31 18:25 WBC 12.7 H RBC 3.14 L Hgb 8.0 L Hct 24.6 L MCV 78 L MCH 25 L RDW 25.0 H Plt Count Lymph % (Auto) Dickens # (Auto) Seg Neutrophils % Seg Neuts % (Manual) 94.0 H Lymphocytes % (Manual) 3.0 L Monocytes % (Manual) Eosinophils % (Manual) Seg Neutrophils # Seg Neutrophils # Man 11.9 H Lymphocytes # (Manual) 0.4 L Monocytes # (Manual) Eosinophils # (Manual) PT INR APTT Sodium Potassium Chloride Carbon Dioxide BUN Creatinine Glucose POC Glucose 63 L 57 L Lactic Acid Calcium Phosphorus Magnesium Direct Bilirubin Alkaline Phosphatase Troponin T NT-Pro-B Natriuret Pep Total Protein Albumin HDL Cholesterol Urine pH Urine WBC (Auto) Urine Creatinine Crossmatch 05/25/20 05/26/20 05/26/20 23:44 04:16 04:16 WBC RBC 3.07 L Hgb 8.0 L Hct 24.2 L MCV 79 L MCH 26 L RDW 24.8 H Plt Count Lymph % (Auto) Dickens # (Auto) Seg Neutrophils % Seg Neuts % (Manual) 85.0 H Lymphocytes % (Manual) 8.0 L Monocytes % (Manual) Eosinophils % (Manual) 5.0 H Seg Neutrophils # Seg Neutrophils # Man 7.9 H Lymphocytes # (Manual) 0.7 L Monocytes # (Manual) Eosinophils # (Manual) 0.5 H PT INR APTT Sodium Potassium 3.4 L Chloride 108.6 H Carbon Dioxide BUN Creatinine 0.7 L Glucose 101 H POC Glucose 52 L Lactic Acid Calcium 7.7 L Phosphorus Magnesium Direct Bilirubin Alkaline Phosphatase Troponin T NT-Pro-B Natriuret Pep Total Protein Albumin HDL Cholesterol Urine pH Urine WBC (Auto) Urine Creatinine Crossmatch 05/26/20 05/27/20 05/27/20 12:41 00:45 06:23 WBC RBC Hgb Hct MCV MCH RDW Plt Count Lymph % (Auto) Dickens # (Auto) Seg Neutrophils % Seg Neuts % (Manual) Lymphocytes % (Manual) Monocytes % (Manual) Eosinophils % (Manual) Seg Neutrophils # Seg Neutrophils # Man Lymphocytes # (Manual) Monocytes # (Manual) Eosinophils # (Manual) PT INR APTT Sodium 135 L Potassium 3.4 L Chloride Carbon Dioxide BUN Creatinine Glucose POC Glucose 64 L Lactic Acid Calcium 7.4 L Phosphorus Magnesium Direct Bilirubin Alkaline Phosphatase 566 H Troponin T NT-Pro-B Natriuret Pep Total Protein 5.3 L D Albumin 1.9 L HDL Cholesterol Urine pH Urine WBC (Auto) Urine Creatinine Crossmatch 05/28/20 05/29/20 05/29/20 04:35 17:01 18:54 WBC RBC Hgb Hct MCV MCH RDW Plt Count Lymph % (Auto) Dickens # (Auto) Seg Neutrophils % Seg Neuts % (Manual) Lymphocytes % (Manual) Monocytes % (Manual) Eosinophils % (Manual) Seg Neutrophils # Seg Neutrophils # Man Lymphocytes # (Manual) Monocytes # (Manual) Eosinophils # (Manual) PT INR APTT Sodium Potassium Chloride Carbon Dioxide BUN Creatinine 0.7 L Glucose POC Glucose 57 L 135 H Lactic Acid Calcium 7.7 L Phosphorus Magnesium Direct Bilirubin Alkaline Phosphatase Troponin T NT-Pro-B Natriuret Pep Total Protein Albumin HDL Cholesterol Urine pH Urine WBC (Auto) Urine Creatinine Crossmatch 05/30/20 05/30/20 05/30/20 05:42 11:30 23:28 WBC RBC Hgb Hct MCV MCH RDW Plt Count Lymph % (Auto) Dickens # (Auto) Seg Neutrophils % Seg Neuts % (Manual) Lymphocytes % (Manual) Monocytes % (Manual) Eosinophils % (Manual) Seg Neutrophils # Seg Neutrophils # Man Lymphocytes # (Manual) Monocytes # (Manual) Eosinophils # (Manual) PT INR APTT Sodium Potassium 3.4 L Chloride Carbon Dioxide BUN 6 L Creatinine 0.6 L Glucose 105 H POC Glucose 51 L 55 L Lactic Acid Calcium 7.5 L Phosphorus 1.80 L Magnesium Direct Bilirubin Alkaline Phosphatase Troponin T NT-Pro-B Natriuret Pep Total Protein Albumin HDL Cholesterol Urine pH Urine WBC (Auto) Urine Creatinine Crossmatch 05/31/20 05/31/20 05:37 11:49 WBC RBC Hgb Hct MCV MCH RDW Plt Count Lymph % (Auto) Dickens # (Auto) Seg Neutrophils % Seg Neuts % (Manual) Lymphocytes % (Manual) Monocytes % (Manual) Eosinophils % (Manual) Seg Neutrophils # Seg Neutrophils # Man Lymphocytes # (Manual) Monocytes # (Manual) Eosinophils # (Manual) PT INR APTT Sodium 136 L Potassium Chloride Carbon Dioxide BUN 6 L Creatinine 0.6 L Glucose POC Glucose 115 H Lactic Acid Calcium 7.5 L Phosphorus Magnesium Direct Bilirubin Alkaline Phosphatase Troponin T NT-Pro-B Natriuret Pep Total Protein Albumin HDL Cholesterol Urine pH Urine WBC (Auto) Urine Creatinine Crossmatch Allied health notes reviewed: nursing
[2020-06-04] MEDS: HYDROmorphone 1 MG/1 ML INJ IV PRN (21:52)
[2020-06-05] MEDS: DEXTROSE 5% IN WATER 1,000 ML IV SCH ×2 (07:25→21:39)
[2020-06-05 08:16] LABS: Blood Urea Nitrogen 8 mg/dL (9-20); Calcium 7.2 mg/dL (8.4-10.2); Hemolysis Index 15
[2020-06-05 08:20] LABS: BUN/Creatinine Ratio 16
[2020-06-05] MEDS: HEPARIN 5,000 UNIT/1 ML VIAL SUB-Q SCH ×2 (10:14→21:40)
[2020-06-05] MEDS: PANTOPRAZOLE 40 MG TAB PO SCH ×2 (10:14→21:39)
[2020-06-05] MEDS: CLOPIDOGREL 75 MG TAB PO SCH (10:14)
[2020-06-05] MEDS: ASPIRIN 81 MG TAB CHEW PO SCH (10:14)
[2020-06-05 11:05] LABS: Hematocrit 23.5 % (35.5-45.6); Hemoglobin 7.6 gm/dl (11.8-15.2); Mean Corpuscular HGB Conc 32 % (32-34); Mean Corpuscular Volume 76 fl (84-94); Platelet Count 249 K/mm3 (140-440); Red Blood Count 3.08 M/mm3 (3.65-5.03)
[2020-06-05 11:06] LABS: Red Cell Distribution Width 26.1 % (13.2-15.2)
[2020-06-05 12:02] LABS: Band Neutrophils # (Manual) 0.4 K/mm3; Myelocytes # (Manual) 67.7 K/mm3; Promyelocytes # (Manual) 67.7 K/mm3; Total Cells Counted 100
[2020-06-05 12:03] LABS: Anisocytosis 2+
[2020-06-05 12:04] LABS: Hypochromasia 2+; Ovalocytes Few; Platelet Estimate Consistent w Auto
[2020-06-05] MEDS: HYDROmorphone 1 MG/1 ML INJ IV PRN (13:15)
[2020-06-05] MEDS: CEFEPIME/NS 1 GM/100 ML 1 GM/100 ML BAG IV SCH ×2 (13:24→21:42)
--- NOTE | 2020-06-05 13:52 | Progress Note ---
Assessment and Plan --Sepsis with shock, status post empiric antibiotic and off pressors --UTI, treated with antibiotics --EBENEZER, vasomotor nephropathy and ATN in the setting of septic shock. CT abdomen negative for hydro --toxic metabolic encephalopathy, CT head without any acute process --Anemia, likely due to chronic disease --Cholecystitis, inflammation seen on CT, cholecystectomy tube in place on admission. Need further outpatient follow-up with general surgery --Hypokalemia, repleted --Hypophosphatemia, repleted --Hyponatremia, likely due to dehydration resolved --Elevated, troponin, likely NSTEMI type II in the setting of sepsis and EBENEZER. 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 Patient was found to have suprapubic tenderness and temp of 101.4 F. In the ED patient was found to be hypotensive with a systolic blood pressure in the 80s and tachycardic. Labs significant for wbc 18, BUN 36, Creat 3.8 and Lactate 3.7. Patient was found to have UTI, septic shock, EBENEZER and toxic metabolic encephalopathy. Patient was admitted to ICU and initiated on sepsis protocol and initiated on IV pressor. Hospital course: 05/23/2020 -Septic shock likely due to UTI, patient is on IV cefepime, IV fluid and pressor support. Critical care consulted -Acute renal failure, improved with IV fluids, nephrology consulted 05/24/2020 -Admitted for septic shock due to UTI, patient is on IV cefepime, IV fluids, pressor support, ID consulted. -Acute renal failure IV fluids and nephrology consult -Patient is saturating 100% on room air -Patient was alert 05/25/2020 -Patient is on IV cefepime and ID increase the dose. -Acute renal failure is improving -Patient had history of cholecystostomy tube placement and was seen by general surgery and order imaging study. -Patient is still on pressors for low blood pressure 05/27/2020 -Patient was admitted for septic shock and he is doing well. Continue with cefepime while he is here and can be discharged with po Levaquin to finish a total of 7 days course of antibiotics. He was evaluated by general surgery and imaging was done and no further work-up is needed. GI also saw the patient. Patient is stable for discharge Case management is working for placement. Patient's family does not want him to go back to the facility where he came from. 05/28/2020 patient is alert today able to make needs known at this particular time. Recently admitted for septic shock. Currently treated with cefepime while in house. Awaiting placement will change to Levaquin to complete 6 more days of antibiotics. Stable for discharge awaiting placement Case management. 05/29/2020. Patient doing well able to make all needs known no new concerns. Patient wants to know that he was doing well. No more in shock. Awaiting place ment. Patient tolerated change to Levaquin well. Patient is not eating solid foods that well will change to pured diet and see how effective that may be. 05/30/2020. Patient resting comfortably no acute distress. Hospital course uncomplicated over p.m. Patient doing better with change in the consistency of diet. Currently awaiting placement. 05/31/2020. Etiology of acute kidney injury secondary to vasomotor nephropathy/ATN in the setting of sepsis/septic shock. CT abdomen negative for hydronephrosis. ID recommended cefepime 2 g every 8 hours with completion total of 7 days. Case management working on placement. 06/01/2020. Continue IV antibiotics per ID recommendations. Case management still working on placement. 06/02/20: Negative Covid test. Patient planned discharged to [facility] and rehab facility in stable condition with outpatient follow-up. Placement waiting on financial agreement with the care home. risk and insurance manager and family in agreement. 06/03: Discharge pending on placement 06/04: Pending placement 06/05: Pending placement. c/o abdominal pain today. noted to have high white count today, patient was treated with cefepime's for 7 days per ID recomme ndation. Will resume cefepime and reconsult GS, Monitor CBC. Subjective Date of service: 06/05/20 Principal diagnosis: Septic shock; Metabolic Acidosis; Ac, Toxic metabolic encephalopathy; EBENEZER Interval history: Patient seen and examined. Medical records and medication list reviewed. No acute event overnight noted by the RN. c/o abdominal pain today Discussed plan of care at bedside with patient's RN. Objective - Exam Narrative Exam: General appearance: Present: no acute distress, elderly white male - EENT Eyes: Present: PERRL, EOM intact ENT: hearing intact, clear oral mucosa, dentition normal - Neck Neck: Present: supple, normal ROM - Respiratory Respiratory effort: normal Respiratory: bilateral: CTA - Cardiovascular Rhythm: regular Heart Sounds: Present: S1 & S2. Absent: gallop, rub - Extremities Extremities: no ischemia, No edema, Full ROM - Abdominal General gastrointestinal: soft, non-distended, normal bowel sounds. Cholecystectomy tube in place - Integumentary Integumentary: Present: clear, warm, dry - Neurologic Neurologic: CNII-XII intact, right sided weakness - POA - Constitutional Vitals: Vital Signs - 12hr 06/05/20 06/05/20 04:16 07:30 Temperature 99.0 F 97.8 F Pulse Rate 98 H 99 H Respiratory 18 18 Rate Blood Pressure 137/55 106/51 O2 Sat by Pulse 97 97 Oximetry - Labs CBC & Chem 7: 06/10/20 05:12 06/10/20 05:12 Labs: Abnormal lab results 06/04/20 06/05/20 06/05/20 Range/Units 18:35 07:43 10:42 WBC 20.4 H (4.5-11.0) K/mm3 RBC 3.08 L (3.65-5.03) M/mm3 Hgb 7.6 L (11.8-15.2) gm/dl Hct 23.5 L (35.5-45.6) % MCV 76 L (84-94) fl MCH 25 L (28-32) pg RDW 26.1 H (13.2-15.2) % Seg Neuts % (Manual) 82.0 H (40.0-70.0) % Lymphocytes % (Manual) 9.0 L (13.4-35.0) % Seg Neutrophils # Man 16.7 H (1.8-7.7) K/mm3 Monocytes # (Manual) 1.0 H (0.0-0.8) K/mm3 Basophils # (Manual) 67.7 H (0.0-0.1) K/mm3 BUN 8 L (9-20) mg/dL Creatinine 0.5 L (0.8-1.3) mg/dL POC Glucose 141 H (70-105) mg/dL Calcium 7.2 L (8.4-10.2) mg/dL 06/05/20 Range/Units 11:35 WBC (4.5-11.0) K/mm3 RBC (3.65-5.03) M/mm3 Hgb (11.8-15.2) gm/dl Hct (35.5-45.6) % MCV (84-94) fl MCH (28-32) pg RDW (13.2-15.2) % Seg Neuts % (Manual) (40.0-70.0) % Lymphocytes % (Manual) (13.4-35.0) % Seg Neutrophils # Man (1.8-7.7) K/mm3 Monocytes # (Manual) (0.0-0.8) K/mm3 Basophils # (Manual) (0.0-0.1) K/mm3 BUN (9-20) mg/dL Creatinine (0.8-1.3) mg/dL POC Glucose 131 H (70-105) mg/dL Calcium (8.4-10.2) mg/dL HEART Score - HEART Score Troponin: Troponin T 0.271 ng/mL (0.00-0.029) H* 05/22/20 09:10
[2020-06-05] MEDS: ACETAMINOPHEN 325 MG TAB PO PRN (21:40)
[2020-06-06] MEDS: CEFEPIME/NS 1 GM/100 ML 1 GM/100 ML BAG IV SCH (05:06)
[2020-06-06] MEDS: DEXTROSE 5% IN WATER 1,000 ML IV SCH (05:09)
[2020-06-06] MEDS: CLOPIDOGREL 75 MG TAB PO SCH (09:36)
[2020-06-06] MEDS: ASPIRIN 81 MG TAB CHEW PO SCH (09:36)
[2020-06-06] MEDS: PANTOPRAZOLE 40 MG TAB PO SCH ×2 (09:36→22:50)
[2020-06-06] MEDS: HEPARIN 5,000 UNIT/1 ML VIAL SUB-Q SCH ×2 (09:37→22:50)
[2020-06-06] MEDS ORDERED: POLYETHYLENE GLYCOL 3350 17 GM POWDER PO PRN (11:00)
--- NOTE | 2020-06-06 11:42 | Cat Scan Report ---
CT ABDOMEN AND PELVIS WITH CONTRAST HISTORY: MAIN COMPARISON: 05/22/2020 TECHNIQUE: Axial CT images were obtained through the abdomen and pelvis after 100 cc of IV contrast. Sagittal and coronal reformatted images. All CT scans at this location are performed using CT dose re duction for ALARA by means of automated exposure control. FINDINGS: CT ABDOMEN: Lung Bases: Clear. Liver: No significant abnormality. Biliary: A cholecystostomy tube is present in the fundus of the gallbladder which is unchanged. No ob vious cholelithiasis, biliary dilatation or new inflammatory changes. Spleen: No significant abnormality. Unenlarged. Pancreas: No significant abnormality. Adrenals: No significant abnormality. Kidneys: Scattered calyceal stones in the left kidney and left renal pelvis are again noted and uncha nged. The right kidney remains unremarkable. No hydronephrosis. Lymphatics: No lymphadenopathy. Vasculature: No significant abnormality. Bowel/Peritoneum: No significant abnormality. No free air. No free fluid. The appendix is not confide ntly identified. CT PELVIS: : The bladder is decompressed with a Engel catheter and is poorly evaluated. There may be mild diff use bladder wall thickening. Tiny stones in the right side of the bladder also noted which are unchan ged. Osseous Structures: Osteopenia and degenerative changes in the spine. No suspicious bony lesion or ac [place] fracture. Additional Findings: None IMPRESSION: No overwhelming change since 05/22/2020 exam. Left nephrolithiasis, nonobstructing. Cholecystostomy tube remains in the same position. The bladder is decompressed with a Engel catheter but there is suggestion of mild diffuse bladder wal l thickening. A cystitis could be considered. Small bladder stones are also unchanged. Signer Name: Mukesh Haque Jr, MD Signed: 06/06/2020 11:37 AM Workstation Name: [id number]
--- NOTE | 2020-06-06 11:49 | Progress Note ---
Assessment and Plan Patient awake. Resting on room air.O2 saturation 91% on room air. No acute respiratory distress. Patient denies chest pain, shortness of breath or cough. Patient afebrile. No leukocytosis. Chest xray done 05/22/20 reported no acute findings. Patient is on ceftriaxone,Albuterol inhaler, S/C Heparin, Protonix. - Patient Problems (1) Hypoxia Current Visit: No Status: Acute Plan to address problem: Improved. O2 saturation 91% on room air. (2) Septic shock Current Visit: Yes Status: Acute Plan to address problem: Improved. Patient treated with cefepime. Presently he is on ceftriaxone. (3) Acute renal failure Current Visit: Yes Status: Acute Qualifiers: Acute renal failure type: with acute tubular necrosis Qualified Code(s): N17.0 - Acute kidney failure with tubular necrosis Plan to address problem: Management as per nephrology. (4) Toxic metabolic encephalopathy Current Visit: Yes Status: Acute Plan to address problem: Management as per primary care. (5) UTI (urinary tract infection) Current Visit: Yes Status: Acute Qualifiers: Encounter type: initial encounter Plan to address problem: Patient is on ceftriaxone (6) Acute cholecystitis Current Visit: No Status: Acute Plan to address problem: S/P percutaneous cholecystotomy drain placement. Management as per gastroenterology. (7) CVA (cerebral vascular accident) Current Visit: No Status: Acute Plan to address problem: Management as per primary care. (8) Hypertension Current Visit: No Status: Acute Plan to address problem: Management as per primary care. Subjective Date of service: 06/06/20 Principal diagnosis: Septic shock; Metabolic Acidosis; Ac, Toxic metabolic encephalopathy; EBENEZER Interval history: Patient awake. Resting on room air.O2 saturation 91% on room air. No acute respiratory distress. Patient denies chest pain, shortness of breath or cough. Patient afebrile. No leukocytosis. Chest xray done 05/22/20 reported no acute findings. Patient is on ceftriaxone,Albuterol inhaler, S/C Heparin, Protonix. Objective Vital Signs - 12hr 06/05/20 06/06/20 06/06/20 23:58 04:47 08:10 Temperature 98.4 F 99.0 F 98.5 F Pulse Rate 104 H 99 H 94 H Respiratory 18 17 18 Rate Blood Pressure 114/76 113/54 110/57 O2 Sat by Pulse 96 97 99 Oximetry Constitutional: no acute distress, alert, other (elderly looking male with normal respiratory effort at rest) Eyes: non-icteric ENT: oropharynx moist Neck: supple, no lymphadenopathy, no JVD Effort: normal Ascultation: Bilateral: diminished breath sounds Percussion: Bilateral: not dull Cardiovascular: regular rate and rhythm Gastrointestinal: normoactive bowel sounds, soft, tender (mild, LLQ, RUQ), non- distended (protuberant'), other (RUQ J-P drain) Integumentary: normal Extremities: no cyanosis, no edema, pink and warm, pulses normal Neurologic: non-focal exam (grossly), pupils equal and round, CN II-XII normal, other (slow to respond) Psychiatric: other (flat affect) CBC and BMP: 06/06/20 12:42 06/05/20 07:43 ABG, PT/INR, D-dimer: PT/INR, D-dimer PT 15.5 Sec. (12.2-14.9) H 05/22/20 09:10 INR 1.25 (0.87-1.13) H 05/22/20 09:10 Abnormal lab findings: Abnormal Labs 05/22/20 05/22/20 05/22/20 09:10 09:10 09:10 WBC 17.9 H RBC 3.60 L Hgb 8.7 L Hct 26.8 L MCV 74 L MCH 24 L RDW 24.0 H Plt Count 621 H Lymph % (Auto) [place] # (Auto) Seg Neutrophils % Seg Neuts % (Manual) 85.0 H Lymphocytes % (Manual) 5.0 L Monocytes % (Manual) 8.0 H Eosinophils % (Manual) Seg Neutrophils # Seg Neutrophils # Man 15.2 H Lymphocytes # (Manual) 0.9 L Monocytes # (Manual) 1.4 H Eosinophils # (Manual) Basophils # (Manual) PT INR APTT Sodium Potassium Chloride Carbon Dioxide BUN Creatinine Glucose POC Glucose Lactic Acid 3.30 H* Calcium Phosphorus Magnesium Direct Bilirubin Alkaline Phosphatase Troponin T 0.271 H* NT-Pro-B Natriuret Pep Total Protein Albumin HDL Cholesterol 39 L Urine pH Urine WBC (Auto) Urine Creatinine Crossmatch 05/22/20 05/22/20 05/22/20 09:10 09:10 09:32 WBC RBC Hgb Hct MCV MCH RDW Plt Count Lymph % (Auto) [place] # (Auto) Seg Neutrophils % Seg Neuts % (Manual) Lymphocytes % (Manual) Monocytes % (Manual) Eosinophils % (Manual) Seg Neutrophils # Seg Neutrophils # Man Lymphocytes # (Manual) Monocytes # (Manual) Eosinophils # (Manual) Basophils # (Manual) PT 15.5 H INR 1.25 H APTT 47.6 H Sodium 136 L Potassium Chloride 97.2 L Carbon Dioxide BUN 36 H Creatinine 3.8 H Glucose 133 H POC Glucose Lactic Acid Calcium 7.8 L Phosphorus Magnesium Direct Bilirubin 0.3 H Alkaline Phosphatase 248 H Troponin T NT-Pro-B Natriuret Pep 1448 H Total Protein Albumin 2.8 L HDL Cholesterol Urine pH 8.0 H Urine WBC (Auto) > 182.0 H Urine Creatinine Crossmatch 05/22/20 05/22/20 05/22/20 09:49 11:42 19:48 WBC RBC Hgb Hct MCV MCH RDW Plt Count Lymph % (Auto) [place] # (Auto) Seg Neutrophils % Seg Neuts % (Manual) Lymphocytes % (Manual) Monocytes % (Manual) Eosinophils % (Manual) Seg Neutrophils # Seg Neutrophils # Man Lymphocytes # (Manual) Monocytes # (Manual) Eosinophils # (Manual) Basophils # (Manual) PT INR APTT Sodium Potassium Chloride Carbon Dioxide BUN Creatinine Glucose POC Glucose Lactic Acid 3.70 H* 2.10 H* Calcium Phosphorus Magnesium Direct Bilirubin Alkaline Phosphatase Troponin T NT-Pro-B Natriuret Pep Total Protein Albumin HDL Cholesterol Urine pH Urine WBC (Auto) Urine Creatinine 48.1 H Crossmatch 05/22/20 05/23/20 05/23/20 23:27 05:05 05:05 WBC 20.3 H RBC 2.73 L Hgb 6.6 L Hct 20.8 L D MCV 76 L MCH 24 L RDW 23.9 H Plt Count 546 H Lymph % (Auto) 11.5 L [place] # (Auto) 1.2 H Seg Neutrophils % 81.5 H Seg Neuts % (Manual) Lymphocytes % (Manual) Monocytes % (Manual) Eosinophils % (Manual) Seg Neutrophils # 16.5 H Seg Neutrophils # Man Lymphocytes # (Manual) Monocytes # (Manual) Eosinophils # (Manual) Basophils # (Manual) PT INR APTT Sodium Potassium Chloride 112.5 H Carbon Dioxide 20 L BUN 26 H Creatinine 1.8 H D Glucose 135 H POC Glucose 124 H Lactic Acid Calcium 6.8 L Phosphorus Magnesium Direct Bilirubin Alkaline Phosphatase Troponin T NT-Pro-B Natriuret Pep Total Protein Albumin HDL Cholesterol Urine pH Urine WBC (Auto) Urine Creatinine Crossmatch 05/23/20 05/23/20 05/23/20 05:38 06:10 11:33 WBC RBC Hgb Hct MCV MCH RDW Plt Count Lymph % (Auto) [place] # (Auto) Seg Neutrophils % Seg Neuts % (Manual) Lymphocytes % (Manual) Monocytes % (Manual) Eosinophils % (Manual) Seg Neutrophils # Seg Neutrophils # Man Lymphocytes # (Manual) Monocytes # (Manual) Eosinophils # (Manual) Basophils # (Manual) PT INR APTT Sodium Potassium Chloride Carbon Dioxide BUN Creatinine Glucose POC Glucose 112 H 128 H Lactic Acid Calcium Phosphorus Magnesium Direct Bilirubin Alkaline Phosphatase Troponin T NT-Pro-B Natriuret Pep Total Protein Albumin HDL Cholesterol Urine pH Urine WBC (Auto) Urine Creatinine Crossmatch See Detail 05/23/20 05/23/20 05/23/20 14:45 17:49 23:34 WBC RBC Hgb 8.4 L Hct 26.4 L MCV MCH RDW Plt Count Lymph % (Auto) [place] # (Auto) Seg Neutrophils % Seg Neuts % (Manual) Lymphocytes % (Manual) Monocytes % (Manual) Eosinophils % (Manual) Seg Neutrophils # Seg Neutrophils # Man Lymphocytes # (Manual) Monocytes # (Manual) Eosinophils # (Manual) Basophils # (Manual) PT INR APTT Sodium Potassium Chloride Carbon Dioxide BUN Creatinine Glucose POC Glucose 112 H 116 H Lactic Acid Calcium Phosphorus Magnesium Direct Bilirubin Alkaline Phosphatase Troponin T NT-Pro-B Natriuret Pep Total Protein Albumin HDL Cholesterol Urine pH Urine WBC (Auto) Urine Creatinine Crossmatch 05/24/20 05/24/20 05/25/20 05:45 05:45 05:00 WBC 18.4 H RBC 3.35 L Hgb 8.6 L Hct 26.5 L MCV 79 L MCH 26 L RDW 23.9 H Plt Count Lymph % (Auto) [place] # (Auto) Seg Neutrophils % Seg Neuts % (Manual) 81.0 H Lymphocytes % (Manual) 12.0 L Monocytes % (Manual) Eosinophils % (Manual) Seg Neutrophils # Seg Neutrophils # Man 14.9 H Lymphocytes # (Manual) Monocytes # (Manual) 1.3 H Eosinophils # (Manual) Basophils # (Manual) PT INR APTT Sodium Potassium 3.1 L Chloride 109.5 H Carbon Dioxide BUN Creatinine Glucose 111 H POC Glucose Lactic Acid Calcium 6.8 L 7.2 L Phosphorus Magnesium 1.00 L Direct Bilirubin Alkaline Phosphatase Troponin T NT-Pro-B Natriuret Pep Total Protein Albumin HDL Cholesterol Urine pH Urine WBC (Auto) Urine Creatinine Crossmatch 05/25/20 05/25/20 05/25/20 09:34 11:31 18:25 WBC 12.7 H RBC 3.14 L Hgb 8.0 L Hct 24.6 L MCV 78 L MCH 25 L RDW 25.0 H Plt Count Lymph % (Auto) [place] # (Auto) Seg Neutrophils % Seg Neuts % (Manual) 94.0 H Lymphocytes % (Manual) 3.0 L Monocytes % (Manual) Eosinophils % (Manual) Seg Neutrophils # Seg Neutrophils # Man 11.9 H Lymphocytes # (Manual) 0.4 L Monocytes # (Manual) Eosinophils # (Manual) Basophils # (Manual) PT INR APTT Sodium Potassium Chloride Carbon Dioxide BUN Creatinine Glucose POC Glucose 63 L 57 L Lactic Acid Calcium Phosphorus Magnesium Direct Bilirubin Alkaline Phosphatase Troponin T NT-Pro-B Natriuret Pep Total Protein Albumin HDL Cholesterol Urine pH Urine WBC (Auto) Urine Creatinine Crossmatch 05/25/20 05/26/20 05/26/20 23:44 04:16 04:16 WBC RBC 3.07 L Hgb 8.0 L Hct 24.2 L MCV 79 L MCH 26 L RDW 24.8 H Plt Count Lymph % (Auto) [place] # (Auto) Seg Neutrophils % Seg Neuts % (Manual) 85.0 H Lymphocytes % (Manual) 8.0 L Monocytes % (Manual) Eosinophils % (Manual) 5.0 H Seg Neutrophils # Seg Neutrophils # Man 7.9 H Lymphocytes # (Manual) 0.7 L Monocytes # (Manual) Eosinophils # (Manual) 0.5 H Basophils # (Manual) PT INR APTT Sodium Potassium 3.4 L Chloride 108.6 H Carbon Dioxide BUN Creatinine 0.7 L Glucose 101 H POC Glucose 52 L Lactic Acid Calcium 7.7 L Phosphorus Magnesium Direct Bilirubin Alkaline Phosphatase Troponin T NT-Pro-B Natriuret Pep Total Protein Albumin HDL Cholesterol Urine pH Urine WBC (Auto) Urine Creatinine Crossmatch 05/26/20 05/27/20 05/27/20 12:41 00:45 06:23 WBC RBC Hgb Hct MCV MCH RDW Plt Count Lymph % (Auto) [place] # (Auto) Seg Neutrophils % Seg Neuts % (Manual) Lymphocytes % (Manual) Monocytes % (Manual) Eosinophils % (Manual) Seg Neutrophils # Seg Neutrophils # Man Lymphocytes # (Manual) Monocytes # (Manual) Eosinophils # (Manual) Basophils # (Manual) PT INR APTT Sodium 135 L Potassium 3.4 L Chloride Carbon Dioxide BUN Creatinine Glucose POC Glucose 64 L Lactic Acid Calcium 7.4 L Phosphorus Magnesium Direct Bilirubin Alkaline Phosphatase 566 H Troponin T NT-Pro-B Natriuret Pep Total Protein 5.3 L D Albumin 1.9 L HDL Cholesterol Urine pH Urine WBC (Auto) Urine Creatinine Crossmatch 05/28/20 05/29/20 05/29/20 04:35 17:01 18:54 WBC RBC Hgb Hct MCV MCH RDW Plt Count Lymph % (Auto) [place] # (Auto) Seg Neutrophils % Seg Neuts % (Manual) Lymphocytes % (Manual) Monocytes % (Manual) Eosinophils % (Manual) Seg Neutrophils # Seg Neutrophils # Man Lymphocytes # (Manual) Monocytes # (Manual) Eosinophils # (Manual) Basophils # (Manual) PT INR APTT Sodium Potassium Chloride Carbon Dioxide BUN Creatinine 0.7 L Glucose POC Glucose 57 L 135 H Lactic Acid Calcium 7.7 L Phosphorus Magnesium Direct Bilirubin Alkaline Phosphatase Troponin T NT-Pro-B Natriuret Pep Total Protein Albumin HDL Cholesterol Urine pH Urine WBC (Auto) Urine Creatinine Crossmatch 05/30/20 05/30/20 05/30/20 05:42 11:30 23:28 WBC RBC Hgb Hct MCV MCH RDW Plt Count Lymph % (Auto) [place] # (Auto) Seg Neutrophils % Seg Neuts % (Manual) Lymphocytes % (Manual) Monocytes % (Manual) Eosinophils % (Manual) Seg Neutrophils # Seg Neutrophils # Man Lymphocytes # (Manual) Monocytes # (Manual) Eosinophils # (Manual) Basophils # (Manual) PT INR APTT Sodium Potassium 3.4 L Chloride Carbon Dioxide BUN 6 L Creatinine 0.6 L Glucose 105 H POC Glucose 51 L 55 L Lactic Acid Calcium 7.5 L Phosphorus 1.80 L Magnesium Direct Bilirubin Alkaline Phosphatase Troponin T NT-Pro-B Natriuret Pep Total Protein Albumin HDL Cholesterol Urine pH Urine WBC (Auto) Urine Creatinine Crossmatch 05/31/20 05/31/20 06/04/20 05:37 11:49 18:35 WBC RBC Hgb Hct MCV MCH RDW Plt Count Lymph % (Auto) [place] # (Auto) Seg Neutrophils % Seg Neuts % (Manual) Lymphocytes % (Manual) Monocytes % (Manual) Eosinophils % (Manual) Seg Neutrophils # Seg Neutrophils # Man Lymphocytes # (Manual) Monocytes # (Manual) Eosinophils # (Manual) Basophils # (Manual) PT INR APTT Sodium 136 L Potassium Chloride Carbon Dioxide BUN 6 L Creatinine 0.6 L Glucose POC Glucose 115 H 141 H Lactic Acid Calcium 7.5 L Phosphorus Magnesium Direct Bilirubin Alkaline Phosphatase Troponin T NT-Pro-B Natriuret Pep Total Protein Albumin HDL Cholesterol Urine pH Urine WBC (Auto) Urine Creatinine Crossmatch 06/05/20 06/05/20 06/05/20 07:43 10:42 11:35 WBC 20.4 H RBC 3.08 L Hgb 7.6 L Hct 23.5 L MCV 76 L MCH 25 L RDW 26.1 H Plt Count Lymph % (Auto) [place] # (Auto) Seg Neutrophils % Seg Neuts % (Manual) 82.0 H Lymphocytes % (Manual) 9.0 L Monocytes % (Manual) Eosinophils % (Manual) Seg Neutrophils # Seg Neutrophils # Man 16.7 H Lymphocytes # (Manual) Monocytes # (Manual) 1.0 H Eosinophils # (Manual) Basophils # (Manual) 67.7 H PT INR APTT Sodium Potassium Chloride Carbon Dioxide BUN 8 L Creatinine 0.5 L Glucose POC Glucose 131 H Lactic Acid Calcium 7.2 L Phosphorus Magnesium Direct Bilirubin Alkaline Phosphatase Troponin T NT-Pro-B Natriuret Pep Total Protein Albumin HDL Cholesterol Urine pH Urine WBC (Auto) Urine Creatinine Crossmatch 06/05/20 16:29 WBC RBC Hgb Hct MCV MCH RDW Plt Count Lymph % (Auto) [place] # (Auto) Seg Neutrophils % Seg Neuts % (Manual) Lymphocytes % (Manual) Monocytes % (Manual) Eosinophils % (Manual) Seg Neutrophils # Seg Neutrophils # Man Lymphocytes # (Manual) Monocytes # (Manual) Eosinophils # (Manual) Basophils # (Manual) PT INR APTT Sodium Potassium Chloride Carbon Dioxide BUN Creatinine Glucose POC Glucose 118 H Lactic Acid Calcium Phosphorus Magnesium Direct Bilirubin Alkaline Phosphatase Troponin T NT-Pro-B Natriuret Pep Total Protein Albumin HDL Cholesterol Urine pH Urine WBC (Auto) Urine Creatinine Crossmatch Allied health notes reviewed: nursing
[2020-06-06] MEDS: DOCUSATE SODIUM 100 MG/10 ML ORAL LIQD PO SCH ×2 (12:30→22:51)
[2020-06-06 13:11] LABS: Hemoglobin 6.7 gm/dl (11.8-15.2); Mean Corpuscular HGB Conc 34 % (32-34); Mean Corpuscular Volume 76 fl (84-94); Platelet Count 237 K/mm3 (140-440); Red Blood Count 2.61 M/mm3 (3.65-5.03)
[2020-06-06 13:49] LABS: Red Cell Distribution Width 25.8 % (13.2-15.2)
[2020-06-06 13:54] LABS: Hematocrit 19.8 % (35.5-45.6)
--- NOTE | 2020-06-06 16:51 | Progress Note ---
Assessment and Plan --Sepsis with shock, status post empiric antibiotic and off pressors --UTI, treat with antibiotics --EBENEZER, vasomotor nephropathy and ATN in the setting of septic shock. CT abdomen negative for hydro --toxic metabolic encephalopathy, CT head without any acute process --Anemia, likely due to chronic disease --Cholecystitis, inflammation seen on CT, cholecystectomy tube in place on admission. Need further outpatient follow-up with general surgery --Hypokalemia, repleted --Hypophosphatemia, repleted --Hyponatremia, likely due to dehydration resolved --Elevated, troponin, likely NSTEMI type II in the setting of sepsis and EBENEZER. 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 Patient was found to have suprapubic tenderness and temp of 101.4 F. In the ED patient was found to be hypotensive with a systolic blood pressure in the 80s and tachycardic. Labs significant for wbc 18, BUN 36, Creat 3.8 and Lactate 3.7. Patient was found to have UTI, septic shock, EBENEZER and toxic metabolic encephalopathy. Patient was admitted to ICU and initiated on sepsis protocol and initiated on IV pressor. Hospital course: 05/23/2020 -Septic shock likely due to UTI, patient is on IV cefepime, IV fluid and pressor support. Critical care consulted -Acute renal failure, improved with IV fluids, nephrology consulted 05/24/2020 -Admitted for septic shock due to UTI, patient is on IV cefepime, IV fluids, pressor support, ID consulted. -Acute renal failure IV fluids and nephrology consult -Patient is saturating 100% on room air -Patient was alert 05/25/2020 -Patient is on IV cefepime and ID increase the dose. -Acute renal failure is improving -Patient had history of cholecystostomy tube placement and was seen by general surgery and order imaging study. -Patient is still on pressors for low blood pressure 05/27/2020 -Patient was admitted for septic shock and he is doing well. Continue with cefepime while he is here and can be discharged with po Levaquin to finish a total of 7 days course of antibiotics. He was evaluated by general surgery and imaging was done and no further work-up is needed. GI also saw the patient. Patient is stable for discharge Case management is working for placement. Patient's family does not want him to go back to the facility where he came from. 05/28/2020 patient is alert today able to make needs known at this particular time. Recently admitted for septic shock. Currently treated with cefepime while in house. Awaiting placement will change to Levaquin to complete 6 more days of antibiotics. Stable for discharge awaiting placement Case management. 05/29/2020. Patient doing well able to make all needs known no new concerns. Patient wants to know that he was doing well. No more in shock. Awaiting placement. Patient tolerated change to Levaquin well. Patient is not eating solid foods that well will change to pured diet and see how effective that may be. 05/30/2020. Patient resting comfortably no acute distress. Hospital course uncomplicated over p.m. Patient doing better with change in the consistency of diet. Currently awaiting placement. 05/31/2020. Etiology of acute kidney injury secondary to vasomotor nephropathy/ATN in the setting of sepsis/septic shock. CT abdomen negative for hydronephrosis. ID recommended cefepime 2 g every 8 hours with completion total of 7 days. Case management working on placement. 06/01/2020. Continue IV antibiotics per ID recommendations. Case management still working on placement. 06/02/20: Negative Covid test. Patient planned discharged to [facility] rehab facility in stable condition with outpatient follow-up. Placement waiting on financial agreement with the long term. manager investment and family in agreement. 06/03: Discharge pending on placement 06/04: Pending placement 06/05: Pending placement. c/o abdominal pain today. noted to have high white count today, patient was treated with cefepime's for 7 days per ID recommend ation. Will resume cefepime and reconsult GS, Monitor CBC. 06/06: repeat CT abdomen suggestive of possible cystitis - will treat with 3 days of rocephin, stop cefepime, d/c brewster. add stool softner. pending placement Subjective Date of service: 06/06/20 Principal diagnosis: Septic shock; Metabolic Acidosis; Ac, Toxic metabolic enc ephalopathy; EBENEZER Interval history: Patient seen and examined. Medical records and medication list reviewed. No acute event overnight noted by the RN. improved abdominal pain Discussed plan of care at bedside with patient's RN. Objective - Exam Narrative Exam: General appearance: Present: no acute distress, elderly white male - EENT Eyes: Present: PERRL, EOM intact ENT: hearing intact, clear oral mucosa, dentition normal - Neck Neck: Present: supple, normal ROM - Respiratory Respiratory effort: normal Respiratory: bilateral: CTA - Cardiovascular Rhythm: regular Heart Sounds: Present: S1 & S2. Absent: gallop, rub - Extremities Extremities: no ischemia, No edema, Full ROM - Abdominal General gastrointestinal: soft, non-distended, normal bowel sounds. Chol ecystectomy tube in place - Integumentary Integumentary: Present: clear, warm, dry - Neurologic Neurologic: CNII-XII intact, right sided weakness - POA - Constitutional Vitals: Vital Signs - 12hr 06/06/20 06/06/20 06/06/20 07:00 08:10 10:00 Temperature 98.5 F Pulse Rate 99 H 94 H Respiratory 18 Rate Respiratory 18 Rate [Right Upper Arm] Blood Pressure 110/57 O2 Sat by Pulse 99 Oximetry 06/06/20 12:09 Temperature 98.6 F Pulse Rate 99 H Respiratory 18 Rate Respiratory Rate [Right Upper Arm] Blood Pressure 111/55 O2 Sat by Pulse 98 Oximetry - Labs CBC & Chem 7: 06/10/20 05:12 06/10/20 05:12 Labs: Abnormal lab results 06/05/20 06/06/20 Range/Units 16:29 12:42 WBC 13.9 H (4.5-11.0) K/mm3 RBC 2.61 L (3.65-5.03) M/mm3 Hgb 6.7 L (11.8-15.2) gm/dl Hct 19.8 L* (35.5-45.6) % MCV 76 L (84-94) fl MCH 26 L (28-32) pg RDW 25.8 H (13.2-15.2) % POC Glucose 118 H (70-105) mg/dL HEART Score - HEART Score Troponin: Troponin T 0.271 ng/mL (0.00-0.029) H* 05/22/20 09:10
[2020-06-06] MEDS: cefTRIAXone/NS 1 GM/50 ML 1 GM/50 ML BAG IV SCH (17:01)
[2020-06-06 23:47] LABS: Hemoglobin 6.8 gm/dl (11.8-15.2)
[2020-06-07 05:45] LABS: Hemoglobin 6.4 gm/dl (11.8-15.2)
[2020-06-07 05:47] LABS: Hematocrit 19.5 % (35.5-45.6)
[2020-06-07] MEDS ORDERED: SODIUM CHLORIDE 0.9% 500 ML 500 ML IV ONE (05:59)
[2020-06-07] MEDS: cefTRIAXone/NS 1 GM/50 ML 1 GM/50 ML BAG IV SCH (06:19)
[2020-06-07] MEDS ORDERED: SODIUM CHLORIDE 0.9% 500 ML 500 ML ONE (08:37)
--- NOTE | 2020-06-07 08:55 | Progress Note ---
Assessment and Plan Patient sleeping. Resting on room air.O2 saturation 97% on room air. No acute respiratory distress.Patients HGB 6.4.Patient receiving blood transfusion.Patient afebrile. No leukocytosis. Chest xray done 05/22/20 reported no acute findings. Patient is on ceftriaxone,Albuterol inhaler, S/C Heparin, Protonix. - Patient Problems (1) Hypoxia Current Visit: No Status: Acute Plan to address problem: Improved. O2 saturation 97% on room air. (2) Septic shock Current Visit: Yes Status: Acute Plan to address problem: Improved. Patient treated with cefepime. Presently he is on ceftriaxone. (3) Acute renal failure Current Visit: Yes Status: Acute Qualifiers: Acute renal failure type: with acute tubular necrosis Qualified Code(s): N17.0 - Acute kidney failure with tubular necrosis Plan to address problem: Management as per nephrology. (4) Toxic metabolic encephalopathy Current Visit: Yes Status: Acute Plan to address problem: Management as per primary care. (5) UTI (urinary tract infection) Current Visit: Yes Status: Acute Qualifiers: Encounter type: initial encounter Plan to address problem: Patient is on ceftriaxone (6) Acute cholecystitis Current Visit: No Status: Acute Plan to address problem: S/P percutaneous cholecystotomy drain placement. Management as per gastroenterology. (7) CVA (cerebral vascular accident) Current Visit: No Status: Acute Plan to address problem: Management as per primary care. (8) Hypertension Current Visit: No Status: Acute Plan to address problem: Management as per primary care. (9) Anemia Current Visit: No Status: Acute Plan to address problem: Receiving Blood transfusion. Management as per primary care and hematology. Subjective Date of service: 06/07/20 Principal diagnosis: Septic shock; Metabolic Acidosis; Ac, Toxic metabolic encephalopathy; EBENEZER Interval history: Patient sleeping. Resting on room air.O2 saturation 97% on room air. No acute respiratory distress.Patients HGB 6.4.Patient receiving blood transfusion.Patient afebrile. No leukocytosis. Chest xray done 05/22/20 reported no acute findings. Patient is on ceftriaxone,Albuterol inhaler, S/C Heparin, Protonix. Objective Vital Signs - 12hr 06/06/20 06/07/20 06/07/20 23:52 03:30 08:28 Temperature 97.5 F L 97.8 F 97.9 F Pulse Rate 95 H 96 H 85 Respiratory 20 20 Rate Blood Pressure 109/55 119/60 113/67 O2 Sat by Pulse 98 97 98 Oximetry Constitutional: no acute distress, asleep, other (elderly looking male with normal respiratory effort at rest) Eyes: non-icteric ENT: oropharynx moist Neck: supple, no lymphadenopathy, no JVD Effort: normal Ascultation: Bilateral: diminished breath sounds Percussion: Bilateral: not dull Cardiovascular: regular rate and rhythm Gastrointestinal: normoactive bowel sounds, soft, tender (mild, LLQ, RUQ), non- distended (protuberant'), other (RUQ J-P drain) Integumentary: normal Extremities: no cyanosis, no edema, pink and warm, pulses normal Neurologic: non-focal exam (grossly), pupils equal and round, CN II-XII normal, other (slow to respond) Psychiatric: other (flat affect) CBC and BMP: 06/07/20 05:19 06/05/20 07:43 ABG, PT/INR, D-dimer: PT/INR, D-dimer PT 15.5 Sec. (12.2-14.9) H 05/22/20 09:10 INR 1.25 (0.87-1.13) H 05/22/20 09:10 Abnormal lab findings: Abnormal Labs 05/22/20 05/22/20 05/22/20 09:10 09:10 09:10 WBC 17.9 H RBC 3.60 L Hgb 8.7 L Hct 26.8 L MCV 74 L MCH 24 L RDW 24.0 H Plt Count 621 H Lymph % (Auto) Placer # (Auto) Seg Neutrophils % Seg Neuts % (Manual) 85.0 H Lymphocytes % (Manual) 5.0 L Monocytes % (Manual) 8.0 H Eosinophils % (Manual) Seg Neutrophils # Seg Neutrophils # Man 15.2 H Lymphocytes # (Manual) 0.9 L Monocytes # (Manual) 1.4 H Eosinophils # (Manual) Basophils # (Manual) PT INR APTT Sodium Potassium Chloride Carbon Dioxide BUN Creatinine Glucose POC Glucose Lactic Acid 3.30 H* Calcium Phosphorus Magnesium Direct Bilirubin Alkaline Phosphatase Troponin T 0.271 H* NT-Pro-B Natriuret Pep Total Protein Albumin HDL Cholesterol 39 L Urine pH Urine WBC (Auto) Urine Creatinine Crossmatch 05/22/20 05/22/20 05/22/20 09:10 09:10 09:32 WBC RBC Hgb Hct MCV MCH RDW Plt Count Lymph % (Auto) Placer # (Auto) Seg Neutrophils % Seg Neuts % (Manual) Lymphocytes % (Manual) Monocytes % (Manual) Eosinophils % (Manual) Seg Neutrophils # Seg Neutrophils # Man Lymphocytes # (Manual) Monocytes # (Manual) Eosinophils # (Manual) Basophils # (Manual) PT 15.5 H INR 1.25 H APTT 47.6 H Sodium 136 L Potassium Chloride 97.2 L Carbon Dioxide BUN 36 H Creatinine 3.8 H Glucose 133 H POC Glucose Lactic Acid Calcium 7.8 L Phosphorus Magnesium Direct Bilirubin 0.3 H Alkaline Phosphatase 248 H Troponin T NT-Pro-B Natriuret Pep 1448 H Total Protein Albumin 2.8 L HDL Cholesterol Urine pH 8.0 H Urine WBC (Auto) > 182.0 H Urine Creatinine Crossmatch 05/22/20 05/22/20 05/22/20 09:49 11:42 19:48 WBC RBC Hgb Hct MCV MCH RDW Plt Count Lymph % (Auto) Placer # (Auto) Seg Neutrophils % Seg Neuts % (Manual) Lymphocytes % (Manual) Monocytes % (Manual) Eosinophils % (Manual) Seg Neutrophils # Seg Neutrophils # Man Lymphocytes # (Manual) Monocytes # (Manual) Eosinophils # (Manual) Basophils # (Manual) PT INR APTT Sodium Potassium Chloride Carbon Dioxide BUN Creatinine Glucose POC Glucose Lactic Acid 3.70 H* 2.10 H* Calcium Phosphorus Magnesium Direct Bilirubin Alkaline Phosphatase Troponin T NT-Pro-B Natriuret Pep Total Protein Albumin HDL Cholesterol Urine pH Urine WBC (Auto) Urine Creatinine 48.1 H Crossmatch 05/22/20 05/23/20 05/23/20 23:27 05:05 05:05 WBC 20.3 H RBC 2.73 L Hgb 6.6 L Hct 20.8 L D MCV 76 L MCH 24 L RDW 23.9 H Plt Count 546 H Lymph % (Auto) 11.5 L Placer # (Auto) 1.2 H Seg Neutrophils % 81.5 H Seg Neuts % (Manual) Lymphocytes % (Manual) Monocytes % (Manual) Eosinophils % (Manual) Seg Neutrophils # 16.5 H Seg Neutrophils # Man Lymphocytes # (Manual) Monocytes # (Manual) Eosinophils # (Manual) Basophils # (Manual) PT INR APTT Sodium Potassium Chloride 112.5 H Carbon Dioxide 20 L BUN 26 H Creatinine 1.8 H D Glucose 135 H POC Glucose 124 H Lactic Acid Calcium 6.8 L Phosphorus Magnesium Direct Bilirubin Alkaline Phosphatase Troponin T NT-Pro-B Natriuret Pep Total Protein Albumin HDL Cholesterol Urine pH Urine WBC (Auto) Urine Creatinine Crossmatch 05/23/20 05/23/20 05/23/20 05:38 06:10 11:33 WBC RBC Hgb Hct MCV MCH RDW Plt Count Lymph % (Auto) Placer # (Auto) Seg Neutrophils % Seg Neuts % (Manual) Lymphocytes % (Manual) Monocytes % (Manual) Eosinophils % (Manual) Seg Neutrophils # Seg Neutrophils # Man Lymphocytes # (Manual) Monocytes # (Manual) Eosinophils # (Manual) Basophils # (Manual) PT INR APTT Sodium Potassium Chloride Carbon Dioxide BUN Creatinine Glucose POC Glucose 112 H 128 H Lactic Acid Calcium Phosphorus Magnesium Direct Bilirubin Alkaline Phosphatase Troponin T NT-Pro-B Natriuret Pep Total Protein Albumin HDL Cholesterol Urine pH Urine WBC (Auto) Urine Creatinine Crossmatch See Detail 05/23/20 05/23/20 05/23/20 14:45 17:49 23:34 WBC RBC Hgb 8.4 L Hct 26.4 L MCV MCH RDW Plt Count Lymph % (Auto) Placer # (Auto) Seg Neutrophils % Seg Neuts % (Manual) Lymphocytes % (Manual) Monocytes % (Manual) Eosinophils % (Manual) Seg Neutrophils # Seg Neutrophils # Man Lymphocytes # (Manual) Monocytes # (Manual) Eosinophils # (Manual) Basophils # (Manual) PT INR APTT Sodium Potassium Chloride Carbon Dioxide BUN Creatinine Glucose POC Glucose 112 H 116 H Lactic Acid Calcium Phosphorus Magnesium Direct Bilirubin Alkaline Phosphatase Troponin T NT-Pro-B Natriuret Pep Total Protein Albumin HDL Cholesterol Urine pH Urine WBC (Auto) Urine Creatinine Crossmatch 05/24/20 05/24/20 05/25/20 05:45 05:45 05:00 WBC 18.4 H RBC 3.35 L Hgb 8.6 L Hct 26.5 L MCV 79 L MCH 26 L RDW 23.9 H Plt Count Lymph % (Auto) Placer # (Auto) Seg Neutrophils % Seg Neuts % (Manual) 81.0 H Lymphocytes % (Manual) 12.0 L Monocytes % (Manual) Eosinophils % (Manual) Seg Neutrophils # Seg Neutrophils # Man 14.9 H Lymphocytes # (Manual) Monocytes # (Manual) 1.3 H Eosinophils # (Manual) Basophils # (Manual) PT INR APTT Sodium Potassium 3.1 L Chloride 109.5 H Carbon Dioxide BUN Creatinine Glucose 111 H POC Glucose Lactic Acid Calcium 6.8 L 7.2 L Phosphorus Magnesium 1.00 L Direct Bilirubin Alkaline Phosphatase Troponin T NT-Pro-B Natriuret Pep Total Protein Albumin HDL Cholesterol Urine pH Urine WBC (Auto) Urine Creatinine Crossmatch 05/25/20 05/25/20 05/25/20 09:34 11:31 18:25 WBC 12.7 H RBC 3.14 L Hgb 8.0 L Hct 24.6 L MCV 78 L MCH 25 L RDW 25.0 H Plt Count Lymph % (Auto) Placer # (Auto) Seg Neutrophils % Seg Neuts % (Manual) 94.0 H Lymphocytes % (Manual) 3.0 L Monocytes % (Manual) Eosinophils % (Manual) Seg Neutrophils # Seg Neutrophils # Man 11.9 H Lymphocytes # (Manual) 0.4 L Monocytes # (Manual) Eosinophils # (Manual) Basophils # (Manual) PT INR APTT Sodium Potassium Chloride Carbon Dioxide BUN Creatinine Glucose POC Glucose 63 L 57 L Lactic Acid Calcium Phosphorus Magnesium Direct Bilirubin Alkaline Phosphatase Troponin T NT-Pro-B Natriuret Pep Total Protein Albumin HDL Cholesterol Urine pH Urine WBC (Auto) Urine Creatinine Crossmatch 05/25/20 05/26/20 05/26/20 23:44 04:16 04:16 WBC RBC 3.07 L Hgb 8.0 L Hct 24.2 L MCV 79 L MCH 26 L RDW 24.8 H Plt Count Lymph % (Auto) Placer # (Auto) Seg Neutrophils % Seg Neuts % (Manual) 85.0 H Lymphocytes % (Manual) 8.0 L Monocytes % (Manual) Eosinophils % (Manual) 5.0 H Seg Neutrophils # Seg Neutrophils # Man 7.9 H Lymphocytes # (Manual) 0.7 L Monocytes # (Manual) Eosinophils # (Manual) 0.5 H Basophils # (Manual) PT INR APTT Sodium Potassium 3.4 L Chloride 108.6 H Carbon Dioxide BUN Creatinine 0.7 L Glucose 101 H POC Glucose 52 L Lactic Acid Calcium 7.7 L Phosphorus Magnesium Direct Bilirubin Alkaline Phosphatase Troponin T NT-Pro-B Natriuret Pep Total Protein Albumin HDL Cholesterol Urine pH Urine WBC (Auto) Urine Creatinine Crossmatch 05/26/20 05/27/20 05/27/20 12:41 00:45 06:23 WBC RBC Hgb Hct MCV MCH RDW Plt Count Lymph % (Auto) Placer # (Auto) Seg Neutrophils % Seg Neuts % (Manual) Lymphocytes % (Manual) Monocytes % (Manual) Eosinophils % (Manual) Seg Neutrophils # Seg Neutrophils # Man Lymphocytes # (Manual) Monocytes # (Manual) Eosinophils # (Manual) Basophils # (Manual) PT INR APTT Sodium 135 L Potassium 3.4 L Chloride Carbon Dioxide BUN Creatinine Glucose POC Glucose 64 L Lactic Acid Calcium 7.4 L Phosphorus Magnesium Direct Bilirubin Alkaline Phosphatase 566 H Troponin T NT-Pro-B Natriuret Pep Total Protein 5.3 L D Albumin 1.9 L HDL Cholesterol Urine pH Urine WBC (Auto) Urine Creatinine Crossmatch 05/28/20 05/29/20 05/29/20 04:35 17:01 18:54 WBC RBC Hgb Hct MCV MCH RDW Plt Count Lymph % (Auto) Placer # (Auto) Seg Neutrophils % Seg Neuts % (Manual) Lymphocytes % (Manual) Monocytes % (Manual) Eosinophils % (Manual) Seg Neutrophils # Seg Neutrophils # Man Lymphocytes # (Manual) Monocytes # (Manual) Eosinophils # (Manual) Basophils # (Manual) PT INR APTT Sodium Potassium Chloride Carbon Dioxide BUN Creatinine 0.7 L Glucose POC Glucose 57 L 135 H Lactic Acid Calcium 7.7 L Phosphorus Magnesium Direct Bilirubin Alkaline Phosphatase Troponin T NT-Pro-B Natriuret Pep Total Protein Albumin HDL Cholesterol Urine pH Urine WBC (Auto) Urine Creatinine Crossmatch 05/30/20 05/30/20 05/30/20 05:42 11:30 23:28 WBC RBC Hgb Hct MCV MCH RDW Plt Count Lymph % (Auto) Placer # (Auto) Seg Neutrophils % Seg Neuts % (Manual) Lymphocytes % (Manual) Monocytes % (Manual) Eosinophils % (Manual) Seg Neutrophils # Seg Neutrophils # Man Lymphocytes # (Manual) Monocytes # (Manual) Eosinophils # (Manual) Basophils # (Manual) PT INR APTT Sodium Potassium 3.4 L Chloride Carbon Dioxide BUN 6 L Creatinine 0.6 L Glucose 105 H POC Glucose 51 L 55 L Lactic Acid Calcium 7.5 L Phosphorus 1.80 L Magnesium Direct Bilirubin Alkaline Phosphatase Troponin T NT-Pro-B Natriuret Pep Total Protein Albumin HDL Cholesterol Urine pH Urine WBC (Auto) Urine Creatinine Crossmatch 05/31/20 05/31/20 06/04/20 05:37 11:49 18:35 WBC RBC Hgb Hct MCV MCH RDW Plt Count Lymph % (Auto) Placer # (Auto) Seg Neutrophils % Seg Neuts % (Manual) Lymphocytes % (Manual) Monocytes % (Manual) Eosinophils % (Manual) Seg Neutrophils # Seg Neutrophils # Man Lymphocytes # (Manual) Monocytes # (Manual) Eosinophils # (Manual) Basophils # (Manual) PT INR APTT Sodium 136 L Potassium Chloride Carbon Dioxide BUN 6 L Creatinine 0.6 L Glucose POC Glucose 115 H 141 H Lactic Acid Calcium 7.5 L Phosphorus Magnesium Direct Bilirubin Alkaline Phosphatase Troponin T NT-Pro-B Natriuret Pep Total Protein Albumin HDL Cholesterol Urine pH Urine WBC (Auto) Urine Creatinine Crossmatch 06/05/20 06/05/20 06/05/20 07:43 10:42 11:35 WBC 20.4 H RBC 3.08 L Hgb 7.6 L Hct 23.5 L MCV 76 L MCH 25 L RDW 26.1 H Plt Count Lymph % (Auto) Placer # (Auto) Seg Neutrophils % Seg Neuts % (Manual) 82.0 H Lymphocytes % (Manual) 9.0 L Monocytes % (Manual) Eosinophils % (Manual) Seg Neutrophils # Seg Neutrophils # Man 16.7 H Lymphocytes # (Manual) Monocytes # (Manual) 1.0 H Eosinophils # (Manual) Basophils # (Manual) 67.7 H PT INR APTT Sodium Potassium Chloride Carbon Dioxide BUN 8 L Creatinine 0.5 L Glucose POC Glucose 131 H Lactic Acid Calcium 7.2 L Phosphorus Magnesium Direct Bilirubin Alkaline Phosphatase Troponin T NT-Pro-B Natriuret Pep Total Protein Albumin HDL Cholesterol Urine pH Urine WBC (Auto) Urine Creatinine Crossmatch 06/05/20 06/06/20 06/06/20 16:29 12:42 22:45 WBC 13.9 H RBC 2.61 L Hgb 6.7 L 6.8 L Hct 19.8 L* 21.0 L MCV 76 L MCH 26 L RDW 25.8 H Plt Count Lymph % (Auto) Placer # (Auto) Seg Neutrophils % Seg Neuts % (Manual) Lymphocytes % (Manual) Monocytes % (Manual) Eosinophils % (Manual) Seg Neutrophils # Seg Neutrophils # Man Lymphocytes # (Manual) Monocytes # (Manual) Eosinophils # (Manual) Basophils # (Manual) PT INR APTT Sodium Potassium Chloride Carbon Dioxide BUN Creatinine Glucose POC Glucose 118 H Lactic Acid Calcium Phosphorus Magnesium Direct Bilirubin Alkaline Phosphatase Troponin T NT-Pro-B Natriuret Pep Total Protein Albumin HDL Cholesterol Urine pH Urine WBC (Auto) Urine Creatinine Crossmatch 06/07/20 06/07/20 05:19 06:48 WBC RBC Hgb 6.4 L Hct 19.5 L* MCV MCH RDW Plt Count Lymph % (Auto) Placer # (Auto) Seg Neutrophils % Seg Neuts % (Manual) Lymphocytes % (Manual) Monocytes % (Manual) Eosinophils % (Manual) Seg Neutrophils # Seg Neutrophils # Man Lymphocytes # (Manual) Monocytes # (Manual) Eosinophils # (Manual) Basophils # (Manual) PT INR APTT Sodium Potassium Chloride Carbon Dioxide BUN Creatinine Glucose POC Glucose Lactic Acid Calcium Phosphorus Magnesium Direct Bilirubin Alkaline Phosphatase Troponin T NT-Pro-B Natriuret Pep Total Protein Albumin HDL Cholesterol Urine pH Urine WBC (Auto) Urine Creatinine Crossmatch See Detail Allied health notes reviewed: nursing
[2020-06-07] MEDS: DOCUSATE SODIUM 100 MG/10 ML ORAL LIQD PO SCH ×2 (09:13→22:00)
[2020-06-07] MEDS ORDERED: SODIUM CHLORIDE 0.9% 500 ML 500 ML IV NR (11:23)
[2020-06-07] MEDS: HEPARIN 5,000 UNIT/1 ML VIAL SUB-Q SCH ×2 (11:46→21:58)
[2020-06-07] MEDS: ASPIRIN 81 MG TAB CHEW PO SCH (11:47)
[2020-06-07] MEDS: PANTOPRAZOLE 40 MG TAB PO SCH ×2 (11:47→21:58)
[2020-06-07] MEDS: CLOPIDOGREL 75 MG TAB PO SCH (11:47)
--- NOTE | 2020-06-07 14:45 | Progress Note ---
Assessment and Plan --Sepsis with shock, status post empiric antibiotic and off pressors --UTI, treat with antibiotics --EBENEZER, vasomotor nephropathy and ATN in the setting of septic shock. CT abdomen negative for hydro --toxic metabolic encephalopathy, CT head without any acute process --Anemia, likely due to chronic disease --Cholecystitis, inflammation seen on CT, cholecystectomy tube in place on admission. Need further outpatient follow-up with general surgery --Hypokalemia, repleted --Hypophosphatemia, repleted --Hyponatremia, likely due to dehydration resolved --Elevated, troponin, likely NSTEMI type II in the setting of sepsis and EBENEZER. 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 Patient was found to have suprapubic tenderness and temp of 101.4 F. In the ED patient was found to be hypotensive with a systolic blood pressure in the 80s and tachycardic. Labs significant for wbc 18, BUN 36, Creat 3.8 and Lactate 3.7. Patient was found to have UTI, septic shock, EBENEZER and toxic metabolic encephalopathy. Patient was admitted to ICU and initiated on sepsis protocol and initiated on IV pressor. Hospital course: 05/23/2020 -Septic shock likely due to UTI, patient is on IV cefepime, IV fluid and pressor support. Critical care consulted -Acute renal failure, improved with IV fluids, nephrology consulted 05/24/2020 -Admitted for septic shock due to UTI, patient is on IV cefepime, IV fluids, pressor support, ID consulted. -Acute renal failure IV fluids and nephrology consult -Patient is saturating 100% on room air -Patient was alert 05/25/2020 -Patient is on IV cefepime and ID increase the dose. -Acute renal failure is improving -Patient had history of cholecystostomy tube placement and was seen by general surgery and order imaging study. -Patient is still on pressors for low blood pressure 05/27/2020 -Patient was admitted for septic shock and he is doing well. Continue with cefepime while he is here and can be discharged with po Levaquin to finish a total of 7 days course of antibiotics. He was evaluated by general surgery and imaging was done and no further work-up is needed. GI also saw the patient. Patient is stable for discharge Case management is working for placement. Patient's family does not want him to go back to the facility where he came from. 05/28/2020 patient is alert today able to make needs known at this particular time. Recently admitted for septic shock. Currently treated with cefepime while in house. Awaiting placement will change to Levaquin to complete 6 more days of antibiotics. Stable for discharge awaiting placement Case management. 05/29/2020. Patient doing well able to make all needs known no new concerns. Patient wants to know that he was doing well. No more in shock. Awaiting placement. Patient tolerated change to Levaquin well. Patient is not eating solid foods that well will change to pured diet and see how effective that may be. 05/30/2020. Patient resting comfortably no acute distress. Hospital course uncomplicated over p.m. Patient doing better with change in the consistency of diet. Currently awaiting placement. 05/31/2020. Etiology of acute kidney injury secondary to vasomotor nephropathy/ATN in the setting of sepsis/septic shock. CT abdomen negative for hydronephrosis. ID recommended cefepime 2 g every 8 hours with completion total of 7 days. Case management working on placement. 06/01/2020. Continue IV antibiotics per ID recommendations. Case management still working on placement. 06/02/20: Negative Covid test. Patient planned discharged to [facility] rehab facility in stable condition with outpatient follow-up. Placement waiting on financial agreement with the [facility]. manager estate and family in agreement. 06/03: Discharge pending on placement 06/04: Pending placement 06/05: Pending placement. c/o abdominal pain today. noted to have high white count today, patient was treated with cefepime's for 7 days per ID recommend ation. Will resume cefepime and reconsult GS, Monitor CBC. 06/06: repeat CT abdomen suggestive of possible cystitis - will treat with 3 days of rocephin, stop cefepime, d/c brewster. add stool softner. pending placement 06/07: H/H dropped, transfuse one unit PRBC - ordered stool for occult blood Subjective Date of service: 06/07/20 Principal diagnosis: Septic shock; Metabolic Acidosis; Ac, Toxic metabolic encephalopathy; EBENEZER Interval history: Patient seen and examined. Medical records and medication list reviewed. No acute event overnight noted by the RN. improved abdominal pain, tolerating diet Discussed plan of care at bedside with patient's RN. Objective - Exam Narrative Exam: General appearance: Present: no acute distress, elderly white male - EENT Eyes: Present: PERRL, EOM intact ENT: hearing intact, clear oral mucosa, dentition normal - Neck Neck: Present: supple, normal ROM - Respiratory Respiratory effort: normal Respiratory: bilateral: CTA - Cardiovascular Rhythm: regular Heart Sounds: Present: S1 & S2. Absent: gallop, rub - Extremities Extremities: no ischemia, No edema, Full ROM - Abdominal General gastrointestinal: soft, non-distended, normal bowel sounds. Cholecyste ctomy tube in place - Integumentary Integumentary: Present: clear, warm, dry - Neurologic Neurologic: CNII-XII intact, right sided weakness - POA - Constitutional Vitals: Vital Signs - 12hr 06/07/20 06/07/20 06/07/20 03:30 08:28 09:04 Temperature 97.8 F 97.9 F 97.3 F L Pulse Rate 96 H 85 87 Respiratory 20 Rate Blood Pressure 119/60 113/67 108/51 O2 Sat by Pulse 97 98 97 Oximetry 06/07/20 06/07/20 06/07/20 09:19 11:34 11:45 Temperature 97.4 F L 97.5 F L 97.2 F L Pulse Rate 87 84 Respiratory 18 16 20 Rate Blood Pressure 109/55 102/61 109/57 O2 Sat by Pulse 97 94 Oximetry - Labs CBC & Chem 7: 06/10/20 05:12 06/10/20 05:12 Labs: Abnormal lab results 06/06/20 06/07/20 06/07/20 Range/Units 22:45 05:19 06:48 Hgb 6.8 L 6.4 L (11.8-15.2) gm/dl Hct 21.0 L 19.5 L* (35.5-45.6) % Crossmatch See Detail HEART Score - HEART Score Troponin: Troponin T 0.271 ng/mL (0.00-0.029) H* 05/22/20 09:10
[2020-06-07 16:11] LABS: Hematocrit 25.5 % (35.5-45.6); Hemoglobin 8.7 gm/dl (11.8-15.2)
[2020-06-07 23:58] LABS: Hematocrit 29.1 % (35.5-45.6); Hemoglobin 9.5 gm/dl (11.8-15.2)
[2020-06-08] MEDS: DEXTROSE 5% IN WATER 1,000 ML IV SCH (05:53)
[2020-06-08 05:55] LABS: Hematocrit 28.5 % (35.5-45.6); Hemoglobin 9.5 gm/dl (11.8-15.2); Mean Corpuscular HGB Conc 33 % (32-34); Mean Corpuscular Volume 80 fl (84-94); Platelet Count 311 K/mm3 (140-440); Red Blood Count 3.55 M/mm3 (3.65-5.03)
[2020-06-08 05:57] LABS: Red Cell Distribution Width 22.4 % (13.2-15.2)
[2020-06-08] MEDS ORDERED: cefTRIAXone/NS 1 GM/50 ML 1 GM/50 ML BAG IV SCH (06:00)
[2020-06-08 06:15] LABS: Blood Urea Nitrogen 8 mg/dL (9-20); Calcium 7.3 mg/dL (8.4-10.2); Hemolysis Index 4
[2020-06-08 06:21] LABS: BUN/Creatinine Ratio 16
[2020-06-08 08:42] LABS: Total Cells Counted 100
[2020-06-08 08:43] LABS: Myelocytes # (Manual) 0.1 K/mm3
[2020-06-08 08:44] LABS: Ovalocytes Few
[2020-06-08 08:45] LABS: Platelet Estimate Consistent w Auto; Schistocytes Rare
[2020-06-08 08:46] LABS: Anisocytosis 1+
[2020-06-08] MEDS: DOCUSATE SODIUM 100 MG/10 ML ORAL LIQD PO SCH ×2 (09:31→21:34)
[2020-06-08] MEDS: HEPARIN 5,000 UNIT/1 ML VIAL SUB-Q SCH (09:31)
[2020-06-08] MEDS: ASPIRIN 81 MG TAB CHEW PO SCH (09:31)
[2020-06-08] MEDS: CLOPIDOGREL 75 MG TAB PO SCH (09:31)
[2020-06-08] MEDS: PANTOPRAZOLE 40 MG TAB PO SCH ×2 (09:31→21:33)
[2020-06-08] MEDS ORDERED: POTASSIUM CHLORIDE ER 20 MEQ TAB PO SCH (13:30)
--- NOTE | 2020-06-08 13:38 | Progress Note ---
Assessment and Plan Patient sleeping. Resting on room air.O2 saturation 96% on room air. No acute respiratory distress.Patients HGB 6.4.Patient received blood transfusion.Patients HGB came up to 9.5. Patient running low grade temp at times. Has leukocytosis. Chest xray done 05/22/20 reported no acute findings. Patient is on ceftriaxone,Albuterol inhaler, S/C Heparin, Protonix. - Patient Problems (1) Hypoxia Current Visit: No Status: Acute Plan to address problem: Improved. O2 saturation 96% on room air. (2) Septic shock Current Visit: Yes Status: Acute Plan to address problem: Improved. Patient treated with cefepime. Presently he is on ceftriaxone. (3) Acute renal failure Current Visit: Yes Status: Acute Qualifiers: Acute renal failure type: with acute tubular necrosis Qualified Code(s): N17.0 - Acute kidney failure with tubular necrosis Plan to address problem: Management as per nephrology. (4) Toxic metabolic encephalopathy Current Visit: Yes Status: Acute Plan to address problem: Management as per primary care. (5) UTI (urinary tract infection) Current Visit: Yes Status: Acute Qualifiers: Encounter type: initial encounter Plan to address problem: Patient is on ceftriaxone (6) Acute cholecystitis Current Visit: No Status: Acute Plan to address problem: S/P percutaneous cholecystotomy drain placement. Management as per gastroenterology. (7) CVA (cerebral vascular accident) Current Visit: No Status: Acute Plan to address problem: Management as per primary care. (8) Hypertension Current Visit: No Status: Acute Plan to address problem: Management as per primary care. (9) Anemia Current Visit: No Status: Acute Plan to address problem: Received Blood transfusion. Patients repeat HGB 9.5. Management as per primary care and hematology. Subjective Date of service: 06/08/20 Principal diagnosis: Septic shock; Metabolic Acidosis; Ac, Toxic metabolic encephalopathy; EBENEZER Interval history: Patient sleeping. Resting on room air.O2 saturation 96% on room air. No acute respiratory distress.Patients HGB 6.4.Patient received blood transfusion.Patients HGB came up to 9.5. Patient running low grade temp at times. Has leukocytosis. Chest xray done 05/22/20 reported no acute findings. Patient is on ceftriaxone,Albuterol inhaler, S/C Heparin, Protonix. Objective Vital Signs - 12hr 06/08/20 06/08/20 06/08/20 03:33 08:00 08:17 Temperature 98.2 F 99.1 F Pulse Rate 92 H 92 H Respiratory 16 16 Rate Blood Pressure 129/71 125/70 Blood Pressure 127/70 [Left] O2 Sat by Pulse 98 98 Oximetry 06/08/20 10:00 Temperature Pulse Rate 86 Respiratory Rate Blood Pressure Blood Pressure [Left] O2 Sat by Pulse Oximetry Constitutional: no acute distress, asleep, other (elderly looking male with normal respiratory effort at rest) Eyes: non-icteric ENT: oropharynx moist Neck: supple, no lymphadenopathy, no JVD Effort: normal Ascultation: Bilateral: diminished breath sounds Percussion: Bilateral: not dull Cardiovascular: regular rate and rhythm Gastrointestinal: normoactive bowel sounds, soft, tender (mild, LLQ, RUQ), non- distended (protuberant'), other (RUQ J-P drain) Integumentary: normal Extremities: no cyanosis, no edema, pink and warm, pulses normal Neurologic: non-focal exam (grossly), pupils equal and round, CN II-XII normal, other (slow to respond) Psychiatric: other (flat affect) CBC and BMP: 06/08/20 05:34 06/08/20 05:34 ABG, PT/INR, D-dimer: PT/INR, D-dimer PT 15.5 Sec. (12.2-14.9) H 05/22/20 09:10 INR 1.25 (0.87-1.13) H 05/22/20 09:10 Abnormal lab findings: Abnormal Labs 05/22/20 05/22/20 05/22/20 09:10 09:10 09:10 WBC 17.9 H RBC 3.60 L Hgb 8.7 L Hct 26.8 L MCV 74 L MCH 24 L RDW 24.0 H Plt Count 621 H Lymph % (Auto) [place] # (Auto) Seg Neutrophils % Seg Neuts % (Manual) 85.0 H Lymphocytes % (Manual) 5.0 L Monocytes % (Manual) 8.0 H Eosinophils % (Manual) Seg Neutrophils # Seg Neutrophils # Man 15.2 H Lymphocytes # (Manual) 0.9 L Monocytes # (Manual) 1.4 H Eosinophils # (Manual) Basophils # (Manual) PT INR APTT Sodium Potassium Chloride Carbon Dioxide BUN Creatinine Glucose POC Glucose Lactic Acid 3.30 H* Calcium Phosphorus Magnesium Direct Bilirubin Alkaline Phosphatase Troponin T 0.271 H* NT-Pro-B Natriuret Pep Total Protein Albumin HDL Cholesterol 39 L Urine pH Urine WBC (Auto) Urine Creatinine Crossmatch 05/22/20 05/22/20 05/22/20 09:10 09:10 09:32 WBC RBC Hgb Hct MCV MCH RDW Plt Count Lymph % (Auto) [place] # (Auto) Seg Neutrophils % Seg Neuts % (Manual) Lymphocytes % (Manual) Monocytes % (Manual) Eosinophils % (Manual) Seg Neutrophils # Seg Neutrophils # Man Lymphocytes # (Manual) Monocytes # (Manual) Eosinophils # (Manual) Basophils # (Manual) PT 15.5 H INR 1.25 H APTT 47.6 H Sodium 136 L Potassium Chloride 97.2 L Carbon Dioxide BUN 36 H Creatinine 3.8 H Glucose 133 H POC Glucose Lactic Acid Calcium 7.8 L Phosphorus Magnesium Direct Bilirubin 0.3 H Alkaline Phosphatase 248 H Troponin T NT-Pro-B Natriuret Pep 1448 H Total Protein Albumin 2.8 L HDL Cholesterol Urine pH 8.0 H Urine WBC (Auto) > 182.0 H Urine Creatinine Crossmatch 05/22/20 05/22/20 05/22/20 09:49 11:42 19:48 WBC RBC Hgb Hct MCV MCH RDW Plt Count Lymph % (Auto) [place] # (Auto) Seg Neutrophils % Seg Neuts % (Manual) Lymphocytes % (Manual) Monocytes % (Manual) Eosinophils % (Manual) Seg Neutrophils # Seg Neutrophils # Man Lymphocytes # (Manual) Monocytes # (Manual) Eosinophils # (Manual) Basophils # (Manual) PT INR APTT Sodium Potassium Chloride Carbon Dioxide BUN Creatinine Glucose POC Glucose Lactic Acid 3.70 H* 2.10 H* Calcium Phosphorus Magnesium Direct Bilirubin Alkaline Phosphatase Troponin T NT-Pro-B Natriuret Pep Total Protein Albumin HDL Cholesterol Urine pH Urine WBC (Auto) Urine Creatinine 48.1 H Crossmatch 05/22/20 05/23/20 05/23/20 23:27 05:05 05:05 WBC 20.3 H RBC 2.73 L Hgb 6.6 L Hct 20.8 L D MCV 76 L MCH 24 L RDW 23.9 H Plt Count 546 H Lymph % (Auto) 11.5 L [place] # (Auto) 1.2 H Seg Neutrophils % 81.5 H Seg Neuts % (Manual) Lymphocytes % (Manual) Monocytes % (Manual) Eosinophils % (Manual) Seg Neutrophils # 16.5 H Seg Neutrophils # Man Lymphocytes # (Manual) Monocytes # (Manual) Eosinophils # (Manual) Basophils # (Manual) PT INR APTT Sodium Potassium Chloride 112.5 H Carbon Dioxide 20 L BUN 26 H Creatinine 1.8 H D Glucose 135 H POC Glucose 124 H Lactic Acid Calcium 6.8 L Phosphorus Magnesium Direct Bilirubin Alkaline Phosphatase Troponin T NT-Pro-B Natriuret Pep Total Protein Albumin HDL Cholesterol Urine pH Urine WBC (Auto) Urine Creatinine Crossmatch 05/23/20 05/23/20 05/23/20 05:38 06:10 11:33 WBC RBC Hgb Hct MCV MCH RDW Plt Count Lymph % (Auto) [place]wey # (Auto) Seg Neutrophils % Seg Neuts % (Manual) Lymphocytes % (Manual) Monocytes % (Manual) Eosinophils % (Manual) Seg Neutrophils # Seg Neutrophils # Man Lymphocytes # (Manual) Monocytes # (Manual) Eosinophils # (Manual) Basophils # (Manual) PT INR APTT Sodium Potassium Chloride Carbon Dioxide BUN Creatinine Glucose POC Glucose 112 H 128 H Lactic Acid Calcium Phosphorus Magnesium Direct Bilirubin Alkaline Phosphatase Troponin T NT-Pro-B Natriuret Pep Total Protein Albumin HDL Cholesterol Urine pH Urine WBC (Auto) Urine Creatinine Crossmatch See Detail 05/23/20 05/23/20 05/23/20 14:45 17:49 23:34 WBC RBC Hgb 8.4 L Hct 26.4 L MCV MCH RDW Plt Count Lymph % (Auto) [place] # (Auto) Seg Neutrophils % Seg Neuts % (Manual) Lymphocytes % (Manual) Monocytes % (Manual) Eosinophils % (Manual) Seg Neutrophils # Seg Neutrophils # Man Lymphocytes # (Manual) Monocytes # (Manual) Eosinophils # (Manual) Basophils # (Manual) PT INR APTT Sodium Potassium Chloride Carbon Dioxide BUN Creatinine Glucose POC Glucose 112 H 116 H Lactic Acid Calcium Phosphorus Magnesium Direct Bilirubin Alkaline Phosphatase Troponin T NT-Pro-B Natriuret Pep Total Protein Albumin HDL Cholesterol Urine pH Urine WBC (Auto) Urine Creatinine Crossmatch 05/24/20 05/24/20 05/25/20 05:45 05:45 05:00 WBC 18.4 H RBC 3.35 L Hgb 8.6 L Hct 26.5 L MCV 79 L MCH 26 L RDW 23.9 H Plt Count Lymph % (Auto) [place] # (Auto) Seg Neutrophils % Seg Neuts % (Manual) 81.0 H Lymphocytes % (Manual) 12.0 L Monocytes % (Manual) Eosinophils % (Manual) Seg Neutrophils # Seg Neutrophils # Man 14.9 H Lymphocytes # (Manual) Monocytes # (Manual) 1.3 H Eosinophils # (Manual) Basophils # (Manual) PT INR APTT Sodium Potassium 3.1 L Chloride 109.5 H Carbon Dioxide BUN Creatinine Glucose 111 H POC Glucose Lactic Acid Calcium 6.8 L 7.2 L Phosphorus Magnesium 1.00 L Direct Bilirubin Alkaline Phosphatase Troponin T NT-Pro-B Natriuret Pep Total Protein Albumin HDL Cholesterol Urine pH Urine WBC (Auto) Urine Creatinine Crossmatch 05/25/20 05/25/20 05/25/20 09:34 11:31 18:25 WBC 12.7 H RBC 3.14 L Hgb 8.0 L Hct 24.6 L MCV 78 L MCH 25 L RDW 25.0 H Plt Count Lymph % (Auto) [place] # (Auto) Seg Neutrophils % Seg Neuts % (Manual) 94.0 H Lymphocytes % (Manual) 3.0 L Monocytes % (Manual) Eosinophils % (Manual) Seg Neutrophils # Seg Neutrophils # Man 11.9 H Lymphocytes # (Manual) 0.4 L Monocytes # (Manual) Eosinophils # (Manual) Basophils # (Manual) PT INR APTT Sodium Potassium Chloride Carbon Dioxide BUN Creatinine Glucose POC Glucose 63 L 57 L Lactic Acid Calcium Phosphorus Magnesium Direct Bilirubin Alkaline Phosphatase Troponin T NT-Pro-B Natriuret Pep Total Protein Albumin HDL Cholesterol Urine pH Urine WBC (Auto) Urine Creatinine Crossmatch 05/25/20 05/26/20 05/26/20 23:44 04:16 04:16 WBC RBC 3.07 L Hgb 8.0 L Hct 24.2 L MCV 79 L MCH 26 L RDW 24.8 H Plt Count Lymph % (Auto) [place] # (Auto) Seg Neutrophils % Seg Neuts % (Manual) 85.0 H Lymphocytes % (Manual) 8.0 L Monocytes % (Manual) Eosinophils % (Manual) 5.0 H Seg Neutrophils # Seg Neutrophils # Man 7.9 H Lymphocytes # (Manual) 0.7 L Monocytes # (Manual) Eosinophils # (Manual) 0.5 H Basophils # (Manual) PT INR APTT Sodium Potassium 3.4 L Chloride 108.6 H Carbon Dioxide BUN Creatinine 0.7 L Glucose 101 H POC Glucose 52 L Lactic Acid Calcium 7.7 L Phosphorus Magnesium Direct Bilirubin Alkaline Phosphatase Troponin T NT-Pro-B Natriuret Pep Total Protein Albumin HDL Cholesterol Urine pH Urine WBC (Auto) Urine Creatinine Crossmatch 05/26/20 05/27/20 05/27/20 12:41 00:45 06:23 WBC RBC Hgb Hct MCV MCH RDW Plt Count Lymph % (Auto) [place] # (Auto) Seg Neutrophils % Seg Neuts % (Manual) Lymphocytes % (Manual) Monocytes % (Manual) Eosinophils % (Manual) Seg Neutrophils # Seg Neutrophils # Man Lymphocytes # (Manual) Monocytes # (Manual) Eosinophils # (Manual) Basophils # (Manual) PT INR APTT Sodium 135 L Potassium 3.4 L Chloride Carbon Dioxide BUN Creatinine Glucose POC Glucose 64 L Lactic Acid Calcium 7.4 L Phosphorus Magnesium Direct Bilirubin Alkaline Phosphatase 566 H Troponin T NT-Pro-B Natriuret Pep Total Protein 5.3 L D Albumin 1.9 L HDL Cholesterol Urine pH Urine WBC (Auto) Urine Creatinine Crossmatch 05/28/20 05/29/20 05/29/20 04:35 17:01 18:54 WBC RBC Hgb Hct MCV MCH RDW Plt Count Lymph % (Auto) [place] # (Auto) Seg Neutrophils % Seg Neuts % (Manual) Lymphocytes % (Manual) Monocytes % (Manual) Eosinophils % (Manual) Seg Neutrophils # Seg Neutrophils # Man Lymphocytes # (Manual) Monocytes # (Manual) Eosinophils # (Manual) Basophils # (Manual) PT INR APTT Sodium Potassium Chloride Carbon Dioxide BUN Creatinine 0.7 L Glucose POC Glucose 57 L 135 H Lactic Acid Calcium 7.7 L Phosphorus Magnesium Direct Bilirubin Alkaline Phosphatase Troponin T NT-Pro-B Natriuret Pep Total Protein Albumin HDL Cholesterol Urine pH Urine WBC (Auto) Urine Creatinine Crossmatch 05/30/20 05/30/20 05/30/20 05:42 11:30 23:28 WBC RBC Hgb Hct MCV MCH RDW Plt Count Lymph % (Auto) [place] # (Auto) Seg Neutrophils % Seg Neuts % (Manual) Lymphocytes % (Manual) Monocytes % (Manual) Eosinophils % (Manual) Seg Neutrophils # Seg Neutrophils # Man Lymphocytes # (Manual) Monocytes # (Manual) Eosinophils # (Manual) Basophils # (Manual) PT INR APTT Sodium Potassium 3.4 L Chloride Carbon Dioxide BUN 6 L Creatinine 0.6 L Glucose 105 H POC Glucose 51 L 55 L Lactic Acid Calcium 7.5 L Phosphorus 1.80 L Magnesium Direct Bilirubin Alkaline Phosphatase Troponin T NT-Pro-B Natriuret Pep Total Protein Albumin HDL Cholesterol Urine pH Urine WBC (Auto) Urine Creatinine Crossmatch 05/31/20 05/31/20 06/04/20 05:37 11:49 18:35 WBC RBC Hgb Hct MCV MCH RDW Plt Count Lymph % (Auto) [place] # (Auto) Seg Neutrophils % Seg Neuts % (Manual) Lymphocytes % (Manual) Monocytes % (Manual) Eosinophils % (Manual) Seg Neutrophils # Seg Neutrophils # Man Lymphocytes # (Manual) Monocytes # (Manual) Eosinophils # (Manual) Basophils # (Manual) PT INR APTT Sodium 136 L Potassium Chloride Carbon Dioxide BUN 6 L Creatinine 0.6 L Glucose POC Glucose 115 H 141 H Lactic Acid Calcium 7.5 L Phosphorus Magnesium Direct Bilirubin Alkaline Phosphatase Troponin T NT-Pro-B Natriuret Pep Total Protein Albumin HDL Cholesterol Urine pH Urine WBC (Auto) Urine Creatinine Crossmatch 06/05/20 06/05/20 06/05/20 07:43 10:42 11:35 WBC 20.4 H RBC 3.08 L Hgb 7.6 L Hct 23.5 L MCV 76 L MCH 25 L RDW 26.1 H Plt Count Lymph % (Auto) [place] # (Auto) Seg Neutrophils % Seg Neuts % (Manual) 82.0 H Lymphocytes % (Manual) 9.0 L Monocytes % (Manual) Eosinophils % (Manual) Seg Neutrophils # Seg Neutrophils # Man 16.7 H Lymphocytes # (Manual) Monocytes # (Manual) 1.0 H Eosinophils # (Manual) Basophils # (Manual) 67.7 H PT INR APTT Sodium Potassium Chloride Carbon Dioxide BUN 8 L Creatinine 0.5 L Glucose POC Glucose 131 H Lactic Acid Calcium 7.2 L Phosphorus Magnesium Direct Bilirubin Alkaline Phosphatase Troponin T NT-Pro-B Natriuret Pep Total Protein Albumin HDL Cholesterol Urine pH Urine WBC (Auto) Urine Creatinine Crossmatch 06/05/20 06/06/20 06/06/20 16:29 12:42 22:45 WBC 13.9 H RBC 2.61 L Hgb 6.7 L 6.8 L Hct 19.8 L* 21.0 L MCV 76 L MCH 26 L RDW 25.8 H Plt Count Lymph % (Auto) [place] # (Auto) Seg Neutrophils % Seg Neuts % (Manual) Lymphocytes % (Manual) Monocytes % (Manual) Eosinophils % (Manual) Seg Neutrophils # Seg Neutrophils # Man Lymphocytes # (Manual) Monocytes # (Manual) Eosinophils # (Manual) Basophils # (Manual) PT INR APTT Sodium Potassium Chloride Carbon Dioxide BUN Creatinine Glucose POC Glucose 118 H Lactic Acid Calcium Phosphorus Magnesium Direct Bilirubin Alkaline Phosphatase Troponin T NT-Pro-B Natriuret Pep Total Protein Albumin HDL Cholesterol Urine pH Urine WBC (Auto) Urine Creatinine Crossmatch 06/07/20 06/07/20 06/07/20 05:19 06:48 16:00 WBC RBC Hgb 6.4 L 8.7 L Hct 19.5 L* 25.5 L D MCV MCH RDW Plt Count Lymph % (Auto) [place] # (Auto) Seg Neutrophils % Seg Neuts % (Manual) Lymphocytes % (Manual) Monocytes % (Manual) Eosinophils % (Manual) Seg Neutrophils # Seg Neutrophils # Man Lymphocytes # (Manual) Monocytes # (Manual) Eosinophils # (Manual) Basophils # (Manual) PT INR APTT Sodium Potassium Chloride Carbon Dioxide BUN Creatinine Glucose POC Glucose Lactic Acid Calcium Phosphorus Magnesium Direct Bilirubin Alkaline Phosphatase Troponin T NT-Pro-B Natriuret Pep Total Protein Albumin HDL Cholesterol Urine pH Urine WBC (Auto) Urine Creatinine Crossmatch See Detail 06/07/20 06/08/20 06/08/20 22:50 05:34 05:34 WBC 13.6 H RBC 3.55 L Hgb 9.5 L 9.5 L Hct 29.1 L 28.5 L MCV 80 L MCH 27 L RDW 22.4 H Plt Count Lymph % (Auto) [place] # (Auto) Seg Neutrophils % Seg Neuts % (Manual) 93.0 H Lymphocytes % (Manual) 3.0 L Monocytes % (Manual) Eosinophils % (Manual) Seg Neutrophils # Seg Neutrophils # Man 12.6 H Lymphocytes # (Manual) 0.4 L Monocytes # (Manual) Eosinophils # (Manual) Basophils # (Manual) PT INR APTT Sodium Potassium 3.4 L Chloride Carbon Dioxide BUN 8 L Creatinine 0.5 L Glucose POC Glucose Lactic Acid Calcium 7.3 L Phosphorus Magnesium Direct Bilirubin Alkaline Phosphatase Troponin T NT-Pro-B Natriuret Pep Total Protein Albumin HDL Cholesterol Urine pH Urine WBC (Auto) Urine Creatinine Crossmatch Allied health notes reviewed: nursing
--- NOTE | 2020-06-08 14:32 | Progress Note ---
Assessment and Plan --Sepsis with shock, status post empiric antibiotic and off pressors --UTI, treated with antibiotics --EBENEZER, vasomotor nephropathy and ATN in the setting of septic shock. CT abdomen negative for hydro --toxic metabolic encephalopathy, CT head without any acute process --Anemia, likely due to chronic disease --Cholecystitis, inflammation seen on CT, cholecystectomy tube in place on admission. Need further outpatient follow-up with general surgery --Hypokalemia, repleted --Hypophosphatemia, repleted --Hyponatremia, likely due to dehydration resolved --Elevated, troponin, likely NSTEMI type II in the setting of sepsis and EBENEZER. 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 Patient was found to have suprapubic tenderness and temp of 101.4 F. In the ED patient was found to be hypotensive with a systolic blood pressure in the 80s and tachycardic. Labs significant for wbc 18, BUN 36, Creat 3.8 and Lactate 3.7. Patient was found to have UTI, septic shock, EBENEZER and toxic metabolic encephalopathy. Patient was admitted to ICU and initiated on sepsis protocol and initiated on IV pressor. Hospital course: 05/23/2020 -Septic shock likely due to UTI, patient is on IV cefepime, IV fluid and pressor support. Critical care consulted -Acute renal failure, improved with IV fluids, nephrology consulted 05/24/2020 -Admitted for septic shock due to UTI, patient is on IV cefepime, IV fluids, pressor support, ID consulted. -Acute renal failure IV fluids and nephrology consult -Patient is saturating 100% on room air -Patient was alert 05/25/2020 -Patient is on IV cefepime and ID increase the dose. -Acute renal failure is improving -Patient had history of cholecystostomy tube placement and was seen by general surgery and order imaging study. -Patient is still on pressors for low blood pressure 05/27/2020 -Patient was admitted for septic shock and he is doing well. Continue with c efepime while he is here and can be discharged with po Levaquin to finish a total of 7 days course of antibiotics. He was evaluated by general surgery and imaging was done and no further work-up is needed. GI also saw the patient. Patient is stable for discharge Case management is working for placement. Patient's family does not want him to go back to the facility where he came from. 05/28/2020 patient is alert today able to make needs known at this particular time. Recently admitted for septic shock. Currently treated with cefepime while in house. Awaiting placement will change to Levaquin to complete 6 more days of antibiotics. Stable for discharge awaiting placement Case management. 05/29/2020. Patient doing well able to make all needs known no new concerns. Patient wants to know that he was doing well. No more in shock. Awaiting placement. Patient tolerated change to Levaquin well. Patient is not eating solid foods that well will change to pured diet and see how effective that may be. 05/30/2020. Patient resting comfortably no acute distress. Hospital course unc omplicated over p.m. Patient doing better with change in the consistency of diet. Currently awaiting placement. 05/31/2020. Etiology of acute kidney injury secondary to vasomotor nephropathy/ATN in the setting of sepsis/septic shock. CT abdomen negative for hydronephrosis. ID recommended cefepime 2 g every 8 hours with completion total of 7 days. Case management working on placement. 06/01/2020. Continue IV antibiotics per ID recommendations. Case management still working on placement. 06/02/20: Negative Covid test. Patient planned discharged to [facility] and rehab facility in stable condition with outpatient follow-up. Placement waiting on financial agreement with the long-term. manager dish and family in agreement. 06/03: Discharge pending on placement 06/04: Pending placement 06/05: Pending placement. c/o abdominal pain today. noted to have high white count today, patient was treated with cefepime's for 7 days per ID recommendation. Will resume cefepime and reconsult GS, Monitor CBC. 06/06: repeat CT abdomen suggestive of possible cystitis - will treat with 3 days of rocephin, stop cefepime, d/c brewster. add stool softner. pending placement 06/07: H/H dropped, transfuse one unit PRBC - ordered stool for occult blood 06/08: placed back brewster today as patient developed urinary retention. h/h stable after transfusion. pending placement. d/c plavix and heparin, cont aspirin only for anemia. Subjective Date of service: 06/08/20 Principal diagnosis: Septic shock; Metabolic Acidosis; Ac, Toxic metabolic encephalopathy; EBENEZER Interval history: Patient seen and examined. Medical records and medication list reviewed. No acute event overnight noted by the RN. improved abdominal pain, tolerating diet Discussed plan of care at bedside with patient's RN. Objective - Exam Narrative Exam: General appearance: Present: no acute distress, elderly white male - EENT Eyes: Present: PERRL, EOM intact ENT: hearing intact, clear oral mucosa, dentition normal - Neck Neck: Present: supple, normal ROM - Respiratory Respiratory effort: normal Respiratory: bilateral: CTA - Cardiovascular Rhythm: regular Heart Sounds: Present: S1 & S2. Absent: gallop, rub - Extremities Extremities: no ischemia, No edema, Full ROM - Abdominal General gastrointestinal: soft, non-distended, normal bowel sounds. Cholecystectomy tube in place - Integumentary Integumentary: Present: clear, warm, dry - Neurologic Neurologic: CNII-XII intact, right sided weakness - POA - Constitutional Vitals: Vital Signs - 12hr 06/08/20 06/08/20 06/08/20 03:33 08:00 08:17 Temperature 98.2 F 99.1 F Pulse Rate 92 H 92 H Respiratory 16 16 Rate Blood Pressure 129/71 125/70 Blood Pressure 127/70 [Left] O2 Sat by Pulse 98 98 Oximetry 06/08/20 06/08/20 10:00 12:07 Temperature 98.0 F Pulse Rate 86 83 Respiratory 18 Rate Blood Pressure 111/62 Blood Pressure [Left] O2 Sat by Pulse 96 Oximetry - Labs CBC & Chem 7: 06/10/20 05:12 06/10/20 05:12 Labs: Abnormal lab results 06/07/20 06/07/20 06/07/20 Range/Units 06:48 16:00 22:50 WBC (4.5-11.0) K/mm3 RBC (3.65-5.03) M/mm3 Hgb 8.7 L 9.5 L (11.8-15.2) gm/dl Hct 25.5 L D 29.1 L (35.5-45.6) % MCV (84-94) fl MCH (28-32) pg RDW (13.2-15.2) % Seg Neuts % (Manual) (40.0-70.0) % Lymphocytes % (Manual) (13.4-35.0) % Seg Neutrophils # Man (1.8-7.7) K/mm3 Lymphocytes # (Manual) (1.2-5.4) K/mm3 Potassium (3.6-5.0) mmol/L BUN (9-20) mg/dL Creatinine (0.8-1.3) mg/dL Calcium (8.4-10.2) mg/dL Crossmatch See Detail 06/08/20 06/08/20 Range/Units 05:34 05:34 WBC 13.6 H (4.5-11.0) K/mm3 RBC 3.55 L (3.65-5.03) M/mm3 Hgb 9.5 L (11.8-15.2) gm/dl Hct 28.5 L (35.5-45.6) % MCV 80 L (84-94) fl MCH 27 L (28-32) pg RDW 22.4 H (13.2-15.2) % Seg Neuts % (Manual) 93.0 H (40.0-70.0) % Lymphocytes % (Manual) 3.0 L (13.4-35.0) % Seg Neutrophils # Man 12.6 H (1.8-7.7) K/mm3 Lymphocytes # (Manual) 0.4 L (1.2-5.4) K/mm3 Potassium 3.4 L (3.6-5.0) mmol/L BUN 8 L (9-20) mg/dL Creatinine 0.5 L (0.8-1.3) mg/dL Calcium 7.3 L (8.4-10.2) mg/dL Crossmatch HEART Score - HEART Score Troponin: Troponin T 0.271 ng/mL (0.00-0.029) H* 05/22/20 09:10
[2020-06-09] MEDS: PANTOPRAZOLE 40 MG TAB PO SCH ×2 (09:17→21:11)
[2020-06-09] MEDS: ASPIRIN 81 MG TAB CHEW PO SCH (09:17)
[2020-06-09] MEDS: DOCUSATE SODIUM 100 MG/10 ML ORAL LIQD PO SCH ×2 (09:17→21:12)
--- NOTE | 2020-06-09 13:17 | Progress Note ---
Assessment and Plan Septic shock Metabolic Acidosis Acute Toxic metabolic encephalopathy Acute renal failure UTI (urinary tract infection) Acute Cystitis - completed antiinfective's per ID (cefepime 2 gms IV q8h X 7 days) - outpatient surgery f/up - continue fall precautions - continue care as below otherwise; - continue accuchecks with glycemic control per SSI for target blood glucose of < 180 mg/dL; avoid hypoglycemia - continue to wean supplemental oxygen for target O2 sat's > 92% acutely - aspiration precautions - prn bronchodilators with pulmonary hygiene per RT - avoid nephrotoxins, renally dose all medications - avoid benzodiazepine's, reduce the possibility of delirium - prn analgesia per pain score - Maintenance of sleep-wake cycle, avoid delirium - aspiration precautions - G.I. & VTE prophylaxis - PT/OT/ROM exercises - mobility protocols for pressure ulcer prophylaxis - Monitor hemodynamics closely - continue other care per attending / other consultants - discharge planning ongoing concurrently .... Re-evaluate in am & prn Subjective Date of service: 06/09/20 Principal diagnosis: Septic shock; Metabolic Acidosis; Ac, Toxic metabolic en cephalopathy; EBENEZER Interval history: Patient is seen today for: Septic shock; Metabolic Acidosis; Acute Toxic metabolic encephalopathy; Acute renal failure; UTI (urinary tract infection) Seen and examined at bedside; 24hour events reviewed; nursing and respiratory care staff consulted; no adverse overnight events reported to me; resting peacefully in bed; more alert; discharge planning ongoing Objective Vital Signs - 12hr 06/09/20 06/09/20 06/09/20 03:21 08:26 09:26 Temperature 98.3 F 98.0 F Pulse Rate 89 81 Pulse Rate [ 81 Right Radial] Respiratory 16 16 Rate Blood Pressure 115/63 114/63 O2 Sat by Pulse 95 97 Oximetry 06/09/20 06/09/20 10:00 12:24 Temperature 97.9 F Pulse Rate 81 102 H Pulse Rate [ Right Radial] Respiratory 18 Rate Blood Pressure 110/61 O2 Sat by Pulse 94 Oximetry Constitutional: no acute distress, other (elderly looking male with normal respiratory effort at rest) Eyes: non-icteric ENT: oropharynx moist Neck: supple, no lymphadenopathy, no JVD Effort: normal Ascultation: Bilateral: clear, diminished breath sounds Percussion: Bilateral: not dull Cardiovascular: regular rate and rhythm Gastrointestinal: normoactive bowel sounds, soft, tender (mild, LLQ, RUQ), non- distended (protuberant'), other (RUQ J-P drain) Integumentary: normal Extremities: no cyanosis, no edema, pink and warm, pulses normal Neurologic: non-focal exam (grossly), pupils equal and round, CN II-XII normal, other (slow to respond) Psychiatric: other (flat affect) CBC and BMP: 06/10/20 05:12 06/10/20 05:12 ABG, PT/INR, D-dimer: PT/INR, D-dimer PT 15.5 Sec. (12.2-14.9) H 05/22/20 09:10 INR 1.25 (0.87-1.13) H 05/22/20 09:10 Abnormal lab findings: Abnormal Labs 05/22/20 05/22/20 05/22/20 09:10 09:10 09:10 WBC 17.9 H RBC 3.60 L Hgb 8.7 L Hct 26.8 L MCV 74 L MCH 24 L RDW 24.0 H Plt Count 621 H Lymph % (Auto) [place] # (Auto) Seg Neutrophils % Seg Neuts % (Manual) 85.0 H Lymphocytes % (Manual) 5.0 L Monocytes % (Manual) 8.0 H Eosinophils % (Manual) Seg Neutrophils # Seg Neutrophils # Man 15.2 H Lymphocytes # (Manual) 0.9 L Monocytes # (Manual) 1.4 H Eosinophils # (Manual) Basophils # (Manual) PT INR APTT Sodium Potassium Chloride Carbon Dioxide BUN Creatinine Glucose POC Glucose Lactic Acid 3.30 H* Calcium Phosphorus Magnesium Direct Bilirubin Alkaline Phosphatase Troponin T 0.271 H* NT-Pro-B Natriuret Pep Total Protein Albumin HDL Cholesterol 39 L Urine pH Urine WBC (Auto) Urine Creatinine Crossmatch 05/22/20 05/22/20 05/22/20 09:10 09:10 09:32 WBC RBC Hgb Hct MCV MCH RDW Plt Count Lymph % (Auto) [place] # (Auto) Seg Neutrophils % Seg Neuts % (Manual) Lymphocytes % (Manual) Monocytes % (Manual) Eosinophils % (Manual) Seg Neutrophils # Seg Neutrophils # Man Lymphocytes # (Manual) Monocytes # (Manual) Eosinophils # (Manual) Basophils # (Manual) PT 15.5 H INR 1.25 H APTT 47.6 H Sodium 136 L Potassium Chloride 97.2 L Carbon Dioxide BUN 36 H Creatinine 3.8 H Glucose 133 H POC Glucose Lactic Acid Calcium 7.8 L Phosphorus Magnesium Direct Bilirubin 0.3 H Alkaline Phosphatase 248 H Troponin T NT-Pro-B Natriuret Pep 1448 H Total Protein Albumin 2.8 L HDL Cholesterol Urine pH 8.0 H Urine WBC (Auto) > 182.0 H Urine Creatinine Crossmatch 05/22/20 05/22/20 05/22/20 09:49 11:42 19:48 WBC RBC Hgb Hct MCV MCH RDW Plt Count Lymph % (Auto) [place] # (Auto) Seg Neutrophils % Seg Neuts % (Manual) Lymphocytes % (Manual) Monocytes % (Manual) Eosinophils % (Manual) Seg Neutrophils # Seg Neutrophils # Man Lymphocytes # (Manual) Monocytes # (Manual) Eosinophils # (Manual) Basophils # (Manual) PT INR APTT Sodium Potassium Chloride Carbon Dioxide BUN Creatinine Glucose POC Glucose Lactic Acid 3.70 H* 2.10 H* Calcium Phosphorus Magnesium Direct Bilirubin Alkaline Phosphatase Troponin T NT-Pro-B Natriuret Pep Total Protein Albumin HDL Cholesterol Urine pH Urine WBC (Auto) Urine Creatinine 48.1 H Crossmatch 05/22/20 05/23/20 05/23/20 23:27 05:05 05:05 WBC 20.3 H RBC 2.73 L Hgb 6.6 L Hct 20.8 L D MCV 76 L MCH 24 L RDW 23.9 H Plt Count 546 H Lymph % (Auto) 11.5 L [place] # (Auto) 1.2 H Seg Neutrophils % 81.5 H Seg Neuts % (Manual) Lymphocytes % (Manual) Monocytes % (Manual) Eosinophils % (Manual) Seg Neutrophils # 16.5 H Seg Neutrophils # Man Lymphocytes # (Manual) Monocytes # (Manual) Eosinophils # (Manual) Basophils # (Manual) PT INR APTT Sodium Potassium Chloride 112.5 H Carbon Dioxide 20 L BUN 26 H Creatinine 1.8 H D Glucose 135 H POC Glucose 124 H Lactic Acid Calcium 6.8 L Phosphorus Magnesium Direct Bilirubin Alkaline Phosphatase Troponin T NT-Pro-B Natriuret Pep Total Protein Albumin HDL Cholesterol Urine pH Urine WBC (Auto) Urine Creatinine Crossmatch 05/23/20 05/23/20 05/23/20 05:38 06:10 11:33 WBC RBC Hgb Hct MCV MCH RDW Plt Count Lymph % (Auto) [place] # (Auto) Seg Neutrophils % Seg Neuts % (Manual) Lymphocytes % (Manual) Monocytes % (Manual) Eosinophils % (Manual) Seg Neutrophils # Seg Neutrophils # Man Lymphocytes # (Manual) Monocytes # (Manual) Eosinophils # (Manual) Basophils # (Manual) PT INR APTT Sodium Potassium Chloride Carbon Dioxide BUN Creatinine Glucose POC Glucose 112 H 128 H Lactic Acid Calcium Phosphorus Magnesium Direct Bilirubin Alkaline Phosphatase Troponin T NT-Pro-B Natriuret Pep Total Protein Albumin HDL Cholesterol Urine pH Urine WBC (Auto) Urine Creatinine Crossmatch See Detail 05/23/20 05/23/20 05/23/20 14:45 17:49 23:34 WBC RBC Hgb 8.4 L Hct 26.4 L MCV MCH RDW Plt Count Lymph % (Auto) [place] # (Auto) Seg Neutrophils % Seg Neuts % (Manual) Lymphocytes % (Manual) Monocytes % (Manual) Eosinophils % (Manual) Seg Neutrophils # Seg Neutrophils # Man Lymphocytes # (Manual) Monocytes # (Manual) Eosinophils # (Manual) Basophils # (Manual) PT INR APTT Sodium Potassium Chloride Carbon Dioxide BUN Creatinine Glucose POC Glucose 112 H 116 H Lactic Acid Calcium Phosphorus Magnesium Direct Bilirubin Alkaline Phosphatase Troponin T NT-Pro-B Natriuret Pep Total Protein Albumin HDL Cholesterol Urine pH Urine WBC (Auto) Urine Creatinine Crossmatch 05/24/20 05/24/20 05/25/20 05:45 05:45 05:00 WBC 18.4 H RBC 3.35 L Hgb 8.6 L Hct 26.5 L MCV 79 L MCH 26 L RDW 23.9 H Plt Count Lymph % (Auto) [place] # (Auto) Seg Neutrophils % Seg Neuts % (Manual) 81.0 H Lymphocytes % (Manual) 12.0 L Monocytes % (Manual) Eosinophils % (Manual) Seg Neutrophils # Seg Neutrophils # Man 14.9 H Lymphocytes # (Manual) Monocytes # (Manual) 1.3 H Eosinophils # (Manual) Basophils # (Manual) PT INR APTT Sodium Potassium 3.1 L Chloride 109.5 H Carbon Dioxide BUN Creatinine Glucose 111 H POC Glucose Lactic Acid Calcium 6.8 L 7.2 L Phosphorus Magnesium 1.00 L Direct Bilirubin Alkaline Phosphatase Troponin T NT-Pro-B Natriuret Pep Total Protein Albumin HDL Cholesterol Urine pH Urine WBC (Auto) Urine Creatinine Crossmatch 05/25/20 05/25/20 05/25/20 09:34 11:31 18:25 WBC 12.7 H RBC 3.14 L Hgb 8.0 L Hct 24.6 L MCV 78 L MCH 25 L RDW 25.0 H Plt Count Lymph % (Auto) [place] # (Auto) Seg Neutrophils % Seg Neuts % (Manual) 94.0 H Lymphocytes % (Manual) 3.0 L Monocytes % (Manual) Eosinophils % (Manual) Seg Neutrophils # Seg Neutrophils # Man 11.9 H Lymphocytes # (Manual) 0.4 L Monocytes # (Manual) Eosinophils # (Manual) Basophils # (Manual) PT INR APTT Sodium Potassium Chloride Carbon Dioxide BUN Creatinine Glucose POC Glucose 63 L 57 L Lactic Acid Calcium Phosphorus Magnesium Direct Bilirubin Alkaline Phosphatase Troponin T NT-Pro-B Natriuret Pep Total Protein Albumin HDL Cholesterol Urine pH Urine WBC (Auto) Urine Creatinine Crossmatch 05/25/20 05/26/20 05/26/20 23:44 04:16 04:16 WBC RBC 3.07 L Hgb 8.0 L Hct 24.2 L MCV 79 L MCH 26 L RDW 24.8 H Plt Count Lymph % (Auto) [place] # (Auto) Seg Neutrophils % Seg Neuts % (Manual) 85.0 H Lymphocytes % (Manual) 8.0 L Monocytes % (Manual) Eosinophils % (Manual) 5.0 H Seg Neutrophils # Seg Neutrophils # Man 7.9 H Lymphocytes # (Manual) 0.7 L Monocytes # (Manual) Eosinophils # (Manual) 0.5 H Basophils # (Manual) PT INR APTT Sodium Potassium 3.4 L Chloride 108.6 H Carbon Dioxide BUN Creatinine 0.7 L Glucose 101 H POC Glucose 52 L Lactic Acid Calcium 7.7 L Phosphorus Magnesium Direct Bilirubin Alkaline Phosphatase Troponin T NT-Pro-B Natriuret Pep Total Protein Albumin HDL Cholesterol Urine pH Urine WBC (Auto) Urine Creatinine Crossmatch 05/26/20 05/27/20 05/27/20 12:41 00:45 06:23 WBC RBC Hgb Hct MCV MCH RDW Plt Count Lymph % (Auto) [place] # (Auto) Seg Neutrophils % Seg Neuts % (Manual) Lymphocytes % (Manual) Monocytes % (Manual) Eosinophils % (Manual) Seg Neutrophils # Seg Neutrophils # Man Lymphocytes # (Manual) Monocytes # (Manual) Eosinophils # (Manual) Basophils # (Manual) PT INR APTT Sodium 135 L Potassium 3.4 L Chloride Carbon Dioxide BUN Creatinine Glucose POC Glucose 64 L Lactic Acid Calcium 7.4 L Phosphorus Magnesium Direct Bilirubin Alkaline Phosphatase 566 H Troponin T NT-Pro-B Natriuret Pep Total Protein 5.3 L D Albumin 1.9 L HDL Cholesterol Urine pH Urine WBC (Auto) Urine Creatinine Crossmatch 05/28/20 05/29/20 05/29/20 04:35 17:01 18:54 WBC RBC Hgb Hct MCV MCH RDW Plt Count Lymph % (Auto) [place] # (Auto) Seg Neutrophils % Seg Neuts % (Manual) Lymphocytes % (Manual) Monocytes % (Manual) Eosinophils % (Manual) Seg Neutrophils # Seg Neutrophils # Man Lymphocytes # (Manual) Monocytes # (Manual) Eosinophils # (Manual) Basophils # (Manual) PT INR APTT Sodium Potassium Chloride Carbon Dioxide BUN Creatinine 0.7 L Glucose POC Glucose 57 L 135 H Lactic Acid Calcium 7.7 L Phosphorus Magnesium Direct Bilirubin Alkaline Phosphatase Troponin T NT-Pro-B Natriuret Pep Total Protein Albumin HDL Cholesterol Urine pH Urine WBC (Auto) Urine Creatinine Crossmatch 05/30/20 05/30/20 05/30/20 05:42 11:30 23:28 WBC RBC Hgb Hct MCV MCH RDW Plt Count Lymph % (Auto) [place] # (Auto) Seg Neutrophils % Seg Neuts % (Manual) Lymphocytes % (Manual) Monocytes % (Manual) Eosinophils % (Manual) Seg Neutrophils # Seg Neutrophils # Man Lymphocytes # (Manual) Monocytes # (Manual) Eosinophils # (Manual) Basophils # (Manual) PT INR APTT Sodium Potassium 3.4 L Chloride Carbon Dioxide BUN 6 L Creatinine 0.6 L Glucose 105 H POC Glucose 51 L 55 L Lactic Acid Calcium 7.5 L Phosphorus 1.80 L Magnesium Direct Bilirubin Alkaline Phosphatase Troponin T NT-Pro-B Natriuret Pep Total Protein Albumin HDL Cholesterol Urine pH Urine WBC (Auto) Urine Creatinine Crossmatch 05/31/20 05/31/20 06/04/20 05:37 11:49 18:35 WBC RBC Hgb Hct MCV MCH RDW Plt Count Lymph % (Auto) [place] # (Auto) Seg Neutrophils % Seg Neuts % (Manual) Lymphocytes % (Manual) Monocytes % (Manual) Eosinophils % (Manual) Seg Neutrophils # Seg Neutrophils # Man Lymphocytes # (Manual) Monocytes # (Manual) Eosinophils # (Manual) Basophils # (Manual) PT INR APTT Sodium 136 L Potassium Chloride Carbon Dioxide BUN 6 L Creatinine 0.6 L Glucose POC Glucose 115 H 141 H Lactic Acid Calcium 7.5 L Phosphorus Magnesium Direct Bilirubin Alkaline Phosphatase Troponin T NT-Pro-B Natriuret Pep Total Protein Albumin HDL Cholesterol Urine pH Urine WBC (Auto) Urine Creatinine Crossmatch 06/05/20 06/05/20 06/05/20 07:43 10:42 11:35 WBC 20.4 H RBC 3.08 L Hgb 7.6 L Hct 23.5 L MCV 76 L MCH 25 L RDW 26.1 H Plt Count Lymph % (Auto) [place] # (Auto) Seg Neutrophils % Seg Neuts % (Manual) 82.0 H Lymphocytes % (Manual) 9.0 L Monocytes % (Manual) Eosinophils % (Manual) Seg Neutrophils # Seg Neutrophils # Man 16.7 H Lymphocytes # (Manual) Monocytes # (Manual) 1.0 H Eosinophils # (Manual) Basophils # (Manual) 67.7 H PT INR APTT Sodium Potassium Chloride Carbon Dioxide BUN 8 L Creatinine 0.5 L Glucose POC Glucose 131 H Lactic Acid Calcium 7.2 L Phosphorus Magnesium Direct Bilirubin Alkaline Phosphatase Troponin T NT-Pro-B Natriuret Pep Total Protein Albumin HDL Cholesterol Urine pH Urine WBC (Auto) Urine Creatinine Crossmatch 06/05/20 06/06/20 06/06/20 16:29 12:42 22:45 WBC 13.9 H RBC 2.61 L Hgb 6.7 L 6.8 L Hct 19.8 L* 21.0 L MCV 76 L MCH 26 L RDW 25.8 H Plt Count Lymph % (Auto) [place] # (Auto) Seg Neutrophils % Seg Neuts % (Manual) Lymphocytes % (Manual) Monocytes % (Manual) Eosinophils % (Manual) Seg Neutrophils # Seg Neutrophils # Man Lymphocytes # (Manual) Monocytes # (Manual) Eosinophils # (Manual) Basophils # (Manual) PT INR APTT Sodium Potassium Chloride Carbon Dioxide BUN Creatinine Glucose POC Glucose 118 H Lactic Acid Calcium Phosphorus Magnesium Direct Bilirubin Alkaline Phosphatase Troponin T NT-Pro-B Natriuret Pep Total Protein Albumin HDL Cholesterol Urine pH Urine WBC (Auto) Urine Creatinine Crossmatch 06/07/20 06/07/20 06/07/20 05:19 06:48 16:00 WBC RBC Hgb 6.4 L 8.7 L Hct 19.5 L* 25.5 L D MCV MCH RDW Plt Count Lymph % (Auto) [place] # (Auto) Seg Neutrophils % Seg Neuts % (Manual) Lymphocytes % (Manual) Monocytes % (Manual) Eosinophils % (Manual) Seg Neutrophils # Seg Neutrophils # Man Lymphocytes # (Manual) Monocytes # (Manual) Eosinophils # (Manual) Basophils # (Manual) PT INR APTT Sodium Potassium Chloride Carbon Dioxide BUN Creatinine Glucose POC Glucose Lactic Acid Calcium Phosphorus Magnesium Direct Bilirubin Alkaline Phosphatase Troponin T NT-Pro-B Natriuret Pep Total Protein Albumin HDL Cholesterol Urine pH Urine WBC (Auto) Urine Creatinine Crossmatch See Detail 06/07/20 06/08/20 06/08/20 22:50 05:34 05:34 WBC 13.6 H RBC 3.55 L Hgb 9.5 L 9.5 L Hct 29.1 L 28.5 L MCV 80 L MCH 27 L RDW 22.4 H Plt Count Lymph % (Auto) [place] # (Auto) Seg Neutrophils % Seg Neuts % (Manual) 93.0 H Lymphocytes % (Manual) 3.0 L Monocytes % (Manual) Eosinophils % (Manual) Seg Neutrophils # Seg Neutrophils # Man 12.6 H Lymphocytes # (Manual) 0.4 L Monocytes # (Manual) Eosinophils # (Manual) Basophils # (Manual) PT INR APTT Sodium Potassium 3.4 L Chloride Carbon Dioxide BUN 8 L Creatinine 0.5 L Glucose POC Glucose Lactic Acid Calcium 7.3 L Phosphorus Magnesium Direct Bilirubin Alkaline Phosphatase Troponin T NT-Pro-B Natriuret Pep Total Protein Albumin HDL Cholesterol Urine pH Urine WBC (Auto) Urine Creatinine Crossmatch 06/08/20 06/09/20 12:05 12:22 WBC RBC Hgb Hct MCV MCH RDW Plt Count Lymph % (Auto) [place] # (Auto) Seg Neutrophils % Seg Neuts % (Manual) Lymphocytes % (Manual) Monocytes % (Manual) Eosinophils % (Manual) Seg Neutrophils # Seg Neutrophils # Man Lymphocytes # (Manual) Monocytes # (Manual) Eosinophils # (Manual) Basophils # (Manual) PT INR APTT Sodium Potassium Chloride Carbon Dioxide BUN Creatinine Glucose POC Glucose 121 H 118 H Lactic Acid Calcium Phosphorus Magnesium Direct Bilirubin Alkaline Phosphatase Troponin T NT-Pro-B Natriuret Pep Total Protein Albumin HDL Cholesterol Urine pH Urine WBC (Auto) Urine Creatinine Crossmatch Allied health notes reviewed: nursing
--- NOTE | 2020-06-09 16:56 | Progress Note ---
Assessment and Plan --Sepsis with shock, status post empiric antibiotic and off pressors --UTI, treated with antibiotics --EBENEZER, vasomotor nephropathy and ATN in the setting of septic shock. CT abdomen negative for hydro --toxic metabolic encephalopathy, CT head without any acute process --Anemia, likely due to chronic disease --Cholecystitis, inflammation seen on CT, cholecystectomy tube in place on admission. Need further outpatient follow-up with general surgery --Hypokalemia, repleted --Hypophosphatemia, repleted --Hyponatremia, likely due to dehydration resolved --Elevated, troponin, likely NSTEMI type II in the setting of sepsis and EBENEZER. 2D echocardiogram with preserved EF --Urinary retention, likely due to BPH, continue Brewster catheter --h/o prior CVA, cont aspirin and statin for now. 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 Patient was found to have suprapubic tenderness and temp of 101.4 F. In the ED patient was found to be hypotensive with a systolic blood pressure in the 80s and tachycardic. Labs significant for wbc 18, BUN 36, Creat 3.8 and Lactate 3.7. Patient was found to have UTI, septic shock, EBENEZER and toxic metabolic encephalopathy. Patient was admitted to ICU and initiated on sepsis protocol and initiated on IV pressor. Hospital course: 05/23/2020 -Septic shock likely due to UTI, patient is on IV cefepime, IV fluid and pressor support. Critical care consulted -Acute renal failure, improved with IV fluids, nephrology consulted 05/24/2020 -Admitted for septic shock due to UTI, patient is on IV cefepime, IV fluids, pressor support, ID consulted. -Acute renal failure IV fluids and nephrology consult -Patient is saturating 100% on room air -Patient was alert 05/25/2020 -Patient is on IV cefepime and ID increase the dose. -Acute renal failure is improving -Patient had history of cholecystostomy tube placement and was seen by general surgery and order imaging study. -Patient is still on pressors for low blood pressure 05/27/2020 -Patient was admitted for septic shock and he is doing well. Continue with cefepime while he is here and can be discharged with po Levaquin to finish a total of 7 days course of antibiotics. He was evaluated by general surgery and imaging was done and no further work-up is needed. GI also saw the patient. Patient is stable for discharge Case management is working for placement. Patient's family does not want him to go back to the facility where he came from. 05/28/2020 patient is alert today able to make needs known at this particular time. Recently admitted for septic shock. Currently treated with cefepime while in house. Awaiting placement will change to Levaquin to complete 6 more days of antibiotics. Stable for discharge awaiting placement Case management. 05/29/2020. Patient doing well able to make all needs known no new concerns. Patient wants to know that he was doing well. No more in shock. Awaiting placement. Patient tolerated change to Levaquin well. Patient is not eating solid foods that well will change to pured diet and see how effective that may be. 05/30/2020. Patient resting comfortably no acute distress. Hospital course uncomplicated over p.m. Patient doing better with change in the consistency of diet. Currently awaiting placement. 05/31/2020. Etiology of acute kidney injury secondary to vasomotor nephropathy/ATN in the setting of sepsis/septic shock. CT abdomen negative for hydronephrosis. ID recommended cefepime 2 g every 8 hours with completion total of 7 days. Case management working on placement. 06/01/2020. Continue IV antibiotics per ID recommendations. Case management still working on placement. 06/02/20: Negative Covid test. Patient planned discharged to [facility] rehab facility in stable condition with outpatient follow-up. Placement waiting on financial agreement with the senior living. mis manager and family in agreement. 06/03: Discharge pending on placement 06/04: Pending placement 06/05: Pending placement. c/o abdominal pain today. noted to have high white count today, patient was treated with cefepime's for 7 days per ID recommendation. Will resume cefepime and reconsult GS, Monitor CBC. 06/06: repeat CT abdomen suggestive of possible cystitis - will treat with 3 days of rocephin and stop cefepime, d/c brewster. add stool softner. No further surgical intervention per GS. pending placement 06/07: H/H dropped, transfuse one unit PRBC - ordered stool for occult blood 06/08: placed back brewster today as patient developed urinary retention. h/h stable after transfusion. pending placement. d/c plavix and heparin, cont aspirin only for anemia. 06/09: h/h stable. discussed with daughter in details about his overall clinical condition. I recommended possible hospice care for the patient considering his underlying chronic conditions - CVA with bedbound state, chronic cholecystitis, recurrent UTI, chronic physical debility, chronic anemia. gaughter is in agreement - will cont to follow. She will discuss with her brother about code status and will update us tomorrow. Subjective Date of service: 06/09/20 Principal diagnosis: Septic shock; Metabolic Acidosis; Ac, Toxic metabolic encephalopathy; EBENEZER Interval history: Patient seen and examined. Medical records and medication list reviewed. No acute event overnight noted by the RN. Patient is tolerating diet but has poor appetite Discussed plan of care at bedside with patient's RN. Objective - Exam Narrative Exam: General appearance: Present: no acute distress, elderly white male - EENT Eyes: Present: PERRL, EOM intact ENT: hearing intact, clear oral mucosa, dentition normal - Neck Neck: Present: supple, normal ROM - Respiratory Respiratory effort: normal Respiratory: bilateral: CTA - Cardiovascular Rhythm: regular Heart Sounds: Present: S1 & S2. Absent: gallop, rub - Extremities Extremities: no ischemia, No edema, Full ROM - Abdominal General gastrointestinal: soft, non-tender, non-distended, normal bowel sounds. Cholecystectomy tube in place - Integumentary Integumentary: Present: clear, warm, dry - Neurologic Neurologic: CNII-XII intact, right sided weakness - Constitutional Vitals: Vital Signs - 12hr 06/09/20 06/09/20 06/09/20 08:26 09:26 10:00 Temperature 98.0 F Pulse Rate 81 81 Pulse Rate [ 81 Right Radial] Respiratory 16 Rate Blood Pressure 114/63 O2 Sat by Pulse 97 Oximetry 06/09/20 12:24 Temperature 97.9 F Pulse Rate 102 H Pulse Rate [ Right Radial] Respiratory 18 Rate Blood Pressure 110/61 O2 Sat by Pulse 94 Oximetry - Labs CBC & Chem 7: 06/10/20 05:12 06/10/20 05:12 Labs: Abnormal lab results 06/08/20 06/09/20 Range/Units 12:05 12:22 POC Glucose 121 H 118 H (70-105) mg/dL HEART Score - HEART Score Troponin: Troponin T 0.271 ng/mL (0.00-0.029) H* 05/22/20 09:10
[2020-06-09] MEDS: HYDROmorphone 1 MG/1 ML INJ IV PRN (19:42)
[2020-06-10 05:39] LABS: Hematocrit 25.6 % (35.5-45.6); Hemoglobin 8.7 gm/dl (11.8-15.2); Mean Corpuscular HGB Conc 34 % (32-34); Mean Corpuscular Volume 80 fl (84-94); Platelet Count 328 K/mm3 (140-440); Red Blood Count 3.19 M/mm3 (3.65-5.03)
[2020-06-10 05:44] LABS: Red Cell Distribution Width 22.7 % (13.2-15.2)
[2020-06-10 05:52] LABS: Blood Urea Nitrogen 7 mg/dL (9-20); Calcium 7.1 mg/dL (8.4-10.2); Hemolysis Index 19
[2020-06-10 05:55] LABS: Basophils % (Auto) 1.2 % (0.0-1.8); Eosinophils % (Auto) 2.9 % (0.0-4.3); Lymphocytes % (Auto) 20.6 % (13.4-35.0); Monocytes % (Auto) 10.4 % (0.0-7.3)
[2020-06-10 05:56] LABS: Lymphocytes # (Auto) 1.7 K/mm3 (1.2-5.4)
[2020-06-10 05:57] LABS: BUN/Creatinine Ratio 18; Basophils # (Auto) 0.1 K/mm3 (0.0-0.1); Eosinophils # (Auto) 0.2 K/mm3 (0.0-0.4); Monocytes # (Auto) 0.8 K/mm3 (0.0-0.8)
[2020-06-10] MEDS ORDERED: POTASSIUM CHLORIDE 20 MEQ PACKET PO NR (08:03)
--- NOTE | 2020-06-10 09:57 | Progress Note ---
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 Patient was found to have suprapubic tenderness and temp of 101.4 F. In the ED patient was found to be hypotensive with a systolic blood pressure in the 80s and tachycardic. Labs significant for wbc 18, BUN 36, Creat 3.8 and Lactate 3.7. Patient was found to have UTI, septic shock, EBENEZER and toxic metabolic encephalopathy. Patient was admitted to ICU and initiated on sepsis protocol and initiated on IV pressor. --Sepsis with shock, status post empiric antibiotic and off pressors --UTI, treated with antibiotics --EBENEZER, vasomotor nephropathy and ATN in the setting of septic shock. CT abdomen negative for hydro --toxic metabolic encephalopathy, CT head without any acute process --Anemia, likely due to chronic disease --Cholecystitis, inflammation seen on CT, cholecystectomy tube in place on admission. Need further outpatient follow-up with general surgery --Hypokalemia, repleted --Hypophosphatemia, repleted --Hyponatremia, likely due to dehydration resolved --Elevated, troponin, likely NSTEMI type II in the setting of sepsis and EBENEZER. 2D echocardiogram with preserved EF --Urinary retention, likely due to BPH, continue Brewster catheter --h/o prior CVA, cont aspirin and statin for now. --Full code --Poor prognosis Hospital course: 05/23/2020 -Septic shock likely due to UTI, patient is on IV cefepime, IV fluid and pressor support. Critical care consulted -Acute renal failure, improved with IV fluids, nephrology consulted 05/24/2020 -Admitted for septic shock due to UTI, patient is on IV cefepime, IV fluids, pressor support, ID consulted. -Acute renal failure IV fluids and nephrology consult -Patient is saturating 100% on room air -Patient was alert 05/25/2020 -Patient is on IV cefepime and ID increase the dose. -Acute renal failure is improving -Patient had history of cholecystostomy tube placement and was seen by general surgery and order imaging study. -Patient is still on pressors for low blood pressure 05/27/2020 -Patient was admitted for septic shock and he is doing well. Continue with cefepime while he is here and can be discharged with po Levaquin to finish a total of 7 days course of antibiotics. He was evaluated by general surgery and imaging was done and no further work-up is needed. GI also saw the patient. Patient is stable for discharge Case management is working for placement. Patient's family does not want him to go back to the facility where he came from. 05/28/2020 patient is alert today able to make needs known at this particular time. Recently admitted for septic shock. Currently treated with cefepime while in house. Awaiting placement will change to Levaquin to complete 6 more days of antibiotics. Stable for discharge awaiting placement Case management. 05/29/2020. Patient doing well able to make all needs known no new concerns. P atient wants to know that he was doing well. No more in shock. Awaiting placement. Patient tolerated change to Levaquin well. Patient is not eating solid foods that well will change to pured diet and see how effective that may be. 05/30/2020. Patient resting comfortably no acute distress. Hospital course uncomplicated over p.m. Patient doing better with change in the consistency of diet. Currently awaiting placement. 05/31/2020. Etiology of acute kidney injury secondary to vasomotor neph ropathy/ATN in the setting of sepsis/septic shock. CT abdomen negative for hydronephrosis. ID recommended cefepime 2 g every 8 hours with completion total of 7 days. Case management working on placement. 06/01/2020. Continue IV antibiotics per ID recommendations. Case management still working on placement. 06/02/20: Negative Covid test. Patient planned discharged to [facility] and rehab facility in stable condition with outpatient follow-up. Placement waiting on financial agreement with the retirement. substation manager and family in agreement. 06/03: Discharge pending on placement 06/04: Pending placement 06/05: Pending placement. c/o abdominal pain today. noted to have high white count today, patient was treated with cefepime's for 7 days per ID recommendation. Will resume cefepime and reconsult GS, Monitor CBC. 06/06: repeat CT abdomen suggestive of possible cystitis - will treat with 3 days of rocephin and stop cefepime, d/c brewster. add stool softner. No further surgical intervention per GS. pending placement 06/07: H/H dropped, transfuse one unit PRBC - ordered stool for occult blood 06/08: placed back brewster today as patient developed urinary retention. h/h stable after transfusion. pending placement. d/c plavix and heparin, cont aspirin only for anemia. 06/09: h/h stable. discussed with daughter in details about his overall clinical condition. I recommended possible hospice care for the patient considering his underlying chronic conditions - CVA with bedbound state, chronic cholecystitis, recurrent UTI, chronic physical debility, chronic anemia. daughter is in agreement - will cont to follow. She will discuss with her brother about code status and will update us tomorrow. 06/10: Continue supportive care, awaiting placement. hospice and snf placement going. History Interval history: Patient seen and examined this morning no new complaints. Hospitalist Physical - Physical exam Narrative exam: - Exam Narrative Exam: General appearance: Present: no acute distress, appears a bit pale elderly white male - EENT Eyes: Present: PERRL, EOM intact ENT: hearing intact, clear oral mucosa, dentition normal - Neck Neck: Present: supple, normal ROM - Respiratory Respiratory effort: normal Respiratory: bilateral: CTA - Cardiovascular Rhythm: regular Heart Sounds: Present: S1 & S2. Absent: gallop, rub - Extremities Extremities: no ischemia, No edema, Full ROM - Abdominal General gastrointestinal: soft, non-tender, non-distended, normal bowel sounds. Brewster in place - Integumentary Integumentary: Present: clear, warm, dry - Neurologic Neurologic: CNII-XII intact, right sided weakness - Constitutional Vitals: Temp Pulse Resp BP Pulse Ox 98.2 F 79 16 117/62 97 06/10/20 08:11 06/10/20 08:11 06/10/20 08:11 06/10/20 08:11 06/10/20 08:11 General appearance: Present: no acute distress, well-nourished HEART Score - HEART Score Troponin: Troponin T 0.271 ng/mL (0.00-0.029) H* 05/22/20 09:10 Results - Labs CBC & Chem 7: 06/10/20 05:12 03/12/21 05:12 Labs: Laboratory Last Values WBC 8.1 K/mm3 (4.5-11.0) 06/10/20 05:12 RBC 3.19 M/mm3 (3.65-5.03) L 06/10/20 05:12 Hgb 8.7 gm/dl (11.8-15.2) L 06/10/20 05:12 Hct 25.6 % (35.5-45.6) L 06/10/20 05:12 MCV 80 fl (84-94) L 06/10/20 05:12 MCH 27 pg (28-32) L 06/10/20 05:12 MCHC 34 % (32-34) 06/10/20 05:12 RDW 22.7 % (13.2-15.2) H 06/10/20 05:12 Plt Count 328 K/mm3 (140-440) 06/10/20 05:12 Lymph % (Auto) 20.6 % (13.4-35.0) 06/10/20 05:12 [place] % (Auto) 10.4 % (0.0-7.3) H 06/10/20 05:12 Eos % (Auto) 2.9 % (0.0-4.3) 06/10/20 05:12 Baso % (Auto) 1.2 % (0.0-1.8) 06/10/20 05:12 Lymph # (Auto) 1.7 K/mm3 (1.2-5.4) 06/10/20 05:12 [place] # (Auto) 0.8 K/mm3 (0.0-0.8) 06/10/20 05:12 Eos # (Auto) 0.2 K/mm3 (0.0-0.4) 06/10/20 05:12 Baso # (Auto) 0.1 K/mm3 (0.0-0.1) 06/10/20 05:12 Add Manual Diff Complete 06/08/20 05:34 Total Counted 100 06/08/20 05:34 Seg Neutrophils % 64.9 % (40.0-70.0) 06/10/20 05:12 Seg Neuts % (Manual) 93.0 % (40.0-70.0) H 06/08/20 05:34 Band Neutrophils % 2.0 % 06/05/20 10:42 Lymphocytes % (Manual) 3.0 % (13.4-35.0) L 06/08/20 05:34 Monocytes % (Manual) 1.0 % (0.0-7.3) 06/08/20 05:34 Eosinophils % (Manual) 2.0 % (0.0-4.3) 06/08/20 05:34 Metamyelocytes % 1.0 % 06/05/20 10:42 Myelocytes % 1.0 % 06/08/20 05:34 Promyelocytes % 0 % 05/25/20 09:34 Nucleated RBC % Not Reportable 06/08/20 05:34 Seg Neutrophils # 5.2 K/mm3 (1.8-7.7) 06/10/20 05:12 Seg Neutrophils # Man 12.6 K/mm3 (1.8-7.7) H 06/08/20 05:34 Band Neutrophils # 0.0 K/mm3 06/08/20 05:34 Lymphocytes # (Manual) 0.4 K/mm3 (1.2-5.4) L 06/08/20 05:34 Abs React Lymphs (Man) 0.0 K/mm3 06/08/20 05:34 Monocytes # (Manual) 0.1 K/mm3 (0.0-0.8) 06/08/20 05:34 Eosinophils # (Manual) 0.3 K/mm3 (0.0-0.4) 06/08/20 05:34 Basophils # (Manual) 0.0 K/mm3 (0.0-0.1) 06/08/20 05:34 Metamyelocytes # 0.0 K/mm3 06/08/20 05:34 Myelocytes # 0.1 K/mm3 06/08/20 05:34 Promyelocytes # 0.0 K/mm3 06/08/20 05:34 Blast Cells # 0.0 K/mm3 06/08/20 05:34 WBC Morphology Not Reportable 06/08/20 05:34 Hypersegmented Neuts Not Reportable 06/08/20 05:34 Hyposegmented Neuts Not Reportable 06/08/20 05:34 Hypogranular Neuts Not Reportable 06/08/20 05:34 Smudge Cells Not Reportable 06/08/20 05:34 Toxic Granulation Not Reportable 06/08/20 05:34 Toxic Vacuolation Not Reportable 06/08/20 05:34 Dohle Bodies Not Reportable 06/08/20 05:34 Pelger-Huet Anomaly Not Reportable 06/08/20 05:34 Lynne Rods Not Reportable 06/08/20 05:34 Platelet Estimate Consistent w auto 06/08/20 05:34 Clumped Platelets Not Reportable 06/08/20 05:34 Plt Clumps, EDTA Not Reportable 06/08/20 05:34 Large Platelets Not Reportable 06/08/20 05:34 Giant Platelets Not Reportable 06/08/20 05:34 Platelet Satelliting Not Reportable 06/08/20 05:34 Plt Morphology Comment Not Reportable 06/08/20 05:34 RBC Morphology Not Reportable 06/08/20 05:34 Dimorphic RBCs Not Reportable 06/08/20 05:34 Polychromasia Not Reportable 06/08/20 05:34 Hypochromasia Not Reportable 06/08/20 05:34 Poikilocytosis Not Reportable 06/08/20 05:34 Anisocytosis 1+ 06/08/20 05:34 Microcytosis Not Reportable 06/08/20 05:34 Macrocytosis Not Reportable 06/08/20 05:34 Spherocytes Not Reportable 06/08/20 05:34 Pappenheimer Bodies Not Reportable 06/08/20 05:34 Sickle Cells Not Reportable 06/08/20 05:34 Target Cells Not Reportable 06/08/20 05:34 Tear Drop Cells Not Reportable 06/08/20 05:34 Ovalocytes Few 06/08/20 05:34 Helmet Cells Not Reportable 06/08/20 05:34 [place] Bodies Not Reportable 06/08/20 05:34 [place] Rings Not Reportable 06/08/20 05:34 [place] Cells Not Reportable 06/08/20 05:34 Bite Cells Not Reportable 06/08/20 05:34 Crenated Cell Not Reportable 06/08/20 05:34 Elliptocytes Not Reportable 06/08/20 05:34 Acanthocytes (Spur) Not Reportable 06/08/20 05:34 Rouleaux Not Reportable 06/08/20 05:34 Hemoglobin C Crystals Not Reportable 06/08/20 05:34 Schistocytes Rare 06/08/20 05:34 Malaria parasites Not Reportable 06/08/20 05:34 [place] Bodies Not Reportable 06/08/20 05:34 Hem Pathologist Commnt No 06/08/20 05:34 PT 15.5 Sec. (12.2-14.9) H 05/22/20 09:10 INR 1.25 (0.87-1.13) H 05/22/20 09:10 APTT 47.6 Sec. (24.2-36.6) H 05/22/20 09:10 Sodium 139 mmol/L (137-145) 06/10/20 05:12 Potassium 3.3 mmol/L (3.6-5.0) L 06/10/20 05:12 Chloride 100.6 mmol/L (98-107) 06/10/20 05:12 Carbon Dioxide 33 mmol/L (22-30) H 06/10/20 05:12 Anion Gap 9 mmol/L 06/10/20 05:12 BUN 7 mg/dL (9-20) L 06/10/20 05:12 Creatinine 0.4 mg/dL (0.8-1.3) L 06/10/20 05:12 Estimated GFR > 60 ml/min 06/10/20 05:12 BUN/Creatinine Ratio 18 % 06/10/20 05:12 Glucose 91 mg/dL (75-100) 06/10/20 05:12 POC Glucose 97 mg/dL (70-105) 06/09/20 20:50 Lactic Acid 0.90 mmol/L (0.7-2.0) 05/22/20 23:25 Calcium 7.1 mg/dL (8.4-10.2) L 06/10/20 05:12 Phosphorus 3.20 mg/dL (2.5-4.5) D 05/31/20 05:37 Magnesium 2.30 mg/dL (1.7-2.3) 05/25/20 05:00 Total Bilirubin 0.30 mg/dL (0.1-1.2) 05/27/20 00:45 Direct Bilirubin < 0.2 mg/dL (0-0.2) 05/27/20 00:45 Indirect Bilirubin 0.1 mg/dL 05/27/20 00:45 AST 17 units/L (5-40) 05/27/20 00:45 ALT 9 units/L (7-56) 05/27/20 00:45 Alkaline Phosphatase 566 units/L (35-129) H 05/27/20 00:45 Troponin T 0.271 ng/mL (0.00-0.029) H* 05/22/20 09:10 NT-Pro-B Natriuret Pep 1448 pg/mL (0-900) H 05/22/20 09:10 Total Protein 5.3 g/dL (6.3-8.2) L D 05/27/20 00:45 Albumin 1.9 g/dL (3.9-5) L 05/27/20 00:45 Albumin/Globulin Ratio 0.6 % 05/27/20 00:45 Triglycerides 143 mg/dL (2-149) 05/22/20 09:10 Cholesterol 118 mg/dL (50-199) 05/22/20 09:10 LDL Cholesterol Direct 55 mg/dL (50-130) 05/22/20 09:10 HDL Cholesterol 39 mg/dL (40-59) L 05/22/20 09:10 Cholesterol/HDL Ratio 3.02 % 05/22/20 09:10 Urine Color [place] (Yellow) 05/22/20 09:32 Urine Turbidity Cloudy (Clear) 05/22/20 09:32 Urine pH 8.0 (5.0-7.0) H 05/22/20 09:32 Ur Specific [place] 1.010 (1.003-1.030) 05/22/20 09:32 Urine Protein >500 mg/dL (Negative) 05/22/20 09:32 Urine Glucose (UA) Neg mg/dL (Negative) 05/22/20 09:32 Urine Ketones Neg mg/dL (Negative) 05/22/20 09:32 Urine Blood Sm (Negative) 05/22/20 09:32 Urine Nitrite Neg (Negative) 05/22/20 09:32 Urine Bilirubin Neg (Negative) 05/22/20 09:32 Urine Urobilinogen < 2.0 mg/dL (<2.0) 05/22/20 09:32 Ur Leukocyte Esterase Mod (Negative) 05/22/20 09:32 Urine WBC (Auto) > 182.0 /HPF (0.0-6.0) H 05/22/20 09:32 Urine RBC (Auto) 9.0 /HPF (0.0-6.0) 05/22/20 09:32 U Epithel Cells (Auto) 1.0 /HPF (0-13.0) 05/22/20 09:32 Urine WBC Clumps 2+ /HPF 05/22/20 09:32 Urine Mucus Few /HPF 05/22/20 09:32 Urine Creatinine 48.1 mg/dL (0.1-20.0) H 05/22/20 09:49 Urine Sodium 130 mmol/L 05/22/20 09:49 Coronavirus (PCR) Negative (Negative) 06/02/20 Unknown Blood Type A POSITIVE 06/07/20 06:48 Antibody Screen Negative 06/07/20 06:48 Crossmatch See Detail 06/07/20 06:48 Microbiology: Microbiology 06/09/20 05:30 Stool Stool Occult Blood (SE) - Final - Diagnostic Impressions Diagnostic Impressions: Echocardiogram 05/22/20 14:25 Transthoracic Echocardiogram Indication: Cardiomyopathy BP: 97/48 HR: 84 Conclusions *Global left ventricular systolic function is normal. *The estimated ejection fraction is 55-60%. *There is no evidence of aortic regurgitation. *There is no evidence of mitral regurgitation. *There is mild tricuspid regurgitation. *The right ventricular systolic pressure is calculated at 31 mmHg. Findings Left Ventricle: The left ventricular chamber size is normal. Global left ventricular wall motion and contractility are within normal limits. Global left ventricular systolic function is normal. The estimated ejection fraction is 55-60%. Abnormal left ventricular diastolic filling is observed, consistent with impaired relaxation. Right Ventricle: The right ventricle is not well visualized. Aortic Valve: Mild aortic leaflet calcification is visualized. There is no evidence of aortic regurgitation. Mitral Valve: The mitral valve leaflets are mildly thickened. There is no evidence of mitral regurgitation. Tricuspid Valve: The tricuspid valve leaflets are normal. There is mild tricuspid regurgitation. The right ventricular systolic pressure is calculated at 31 mmHg. Pulmonic Valve: The pulmonic valve is not well visualized. Pericardium: There is no pericardial effusion. Aorta: The aorta appears normal. Venous: The inferior vena cava is not visualized. Measurements Chambers 2D Name Value Normal Range IVSd (2D) 0.93 cm (0.6 - 1.1) LVPWd (2D) 0.88 cm (0.6 - 1.1) LVIDd (2D) 4.14 cm (3.7 - 5.6) LVIDs (2D) 2.84 cm (2 - 3.8) LV FS (2D) 31.49 % - EF Teichholz (2D) 59.83 % - Ao root diameter (2D) 2.95 cm (2 - 3.7) Volumes/Mass Name Value Normal Range LA ESV SP 4CH (A/L) 18.27 ml - LA ESV SP 2CH (A/L) 16.69 ml - LA ESV BP (A/L) 20.49 ml - LA ESV BP (A/L) index 9.95 ml/m2 - LA ESV SP 4CH (MOD) 16.89 ml - LA ESV SP 2CH (MOD) 16.63 ml - LA ESV BP (MOD) 19.39 ml - LA ESV BP (MOD) index 9.41 ml/m2 - Diastolic/Systolic Function Name Value Normal Range MV E-wave Vmax 0.69 m/sec - MV deceleration time 231.55 msec - MV A-wave Vmax 0.85 m/sec - MV E:A ratio 0.81 ratio - Aortic Valve Name Value Normal Range AV Vmax 1.43 m/sec - AV VTI 26.37 cm - AV peak gradient 8.16 mmHg - AV mean gradient 5.15 mmHg - LVOT diameter 2.39 cm - LVOT Vmax 0.94 m/sec - LVOT VTI 17.92 cm - LVOT peak gradient 3.5 mmHg - LVOT mean gradient 2.07 mmHg - SV LVOT 80.13 ml - NURIA (continuity Vmax) 2.93 cm2 - NURIA (continuity VTI) 3.04 cm2 - Tricuspid Valve Name Value Normal Range TR Vmax 2.63 m/sec - TR peak gradient 28 mmHg - RAP 3 mmHg - RVSP 31 mmHg - Pulmonic Valve/Qp:Qs Name Value Normal Range PV acceleration time 95.15 msec - Brewster/IV: Voiding Method Indwelling Catheter Active Medications - Current Medications Current Medications: Generic Name Dose Route Start Last Admin Trade Name Freq PRN Reason Stop Dose Admin Acetaminophen 650 mg 05/22/20 12:31 06/05/20 21:40 Acetaminophen 325 Mg Tab PO 650 mg Q6H PRN Administration Pain, Mild (1-3) Albuterol 2.5 mg 05/22/20 12:14 Albuterol 2.5 Mg/3 Ml Nebu IH Q3HRT PRN Shortness Of Breath Aspirin 81 mg 05/23/20 10:00 06/09/20 09:17 Aspirin 81 Mg Tab Chew PO 81 mg QDAY VANE Administration Atorvastatin Calcium 80 mg 05/22/20 22:00 06/09/20 21:11 Atorvastatin 40 Mg Tab PO 80 mg QHS VANE Administration Bisacodyl 10 mg 06/06/20 11:00 06/09/20 09:17 Bisacodyl 10 Mg Rect Supp DC 10 mg QDAY VANE Administration Dextrose 25 ml 05/25/20 00:13 05/30/20 11:51 Dextrose 50% In Water (25gm) 50 Ml Syringe IV 20 ml Q30MIN PRN Administration Hypoglycemia Protocol Docusate Sodium 100 mg 06/06/20 11:00 06/09/20 21:12 Docusate Sodium 100 Mg/10 Ml Oral Liqd PO 100 mg BID VANE Administration Hydromorphone HCl 0.25 mg 05/22/20 12:31 06/09/20 19:42 Hydromorphone 1 Mg/1 Ml Inj IV 0.25 mg Q4H PRN Administration Pain, Moderate (4-6) Pantoprazole Sodium 40 mg 05/22/20 22:00 06/09/20 21:11 Pantoprazole 40 Mg Tab PO 40 mg BID VANE Administration Polyethylene Glycol 17 gm 06/06/20 11:00 Polyethylene Glycol 3350 17 Gm Powder PO QDAY PRN Constipation Potassium Chloride 20 meq 06/10/20 10:00 Potassium Chloride Er 20 Meq Tab PO QDAY VANE Potassium Chloride 40 meq 06/10/20 08:03 Potassium Chloride 20 Meq Packet PO 06/10/20 11:00 ONCE NR Sodium Chloride 10 ml 05/22/20 22:00 06/09/20 21:13 Sodium Chloride 0.9% 10 Ml Flush Syringe IV 10 ml BID VANE Administration Sodium Chloride 10 ml 05/22/20 12:14 Sodium Chloride 0.9% 10 Ml Flush Syringe IV PRN PRN LINE FLUSH Nutrition/Malnutrition Assess - Dietary Evaluation Nutrition/Malnutrition Findings: Nutrition Notes Start: 05/27/20 11:22 Freq: Status: Active Protocol: Document 06/08/20 10:44 (Rec: 06/08/20 10:48 [email or web address]) Nutrition Notes Initial or Follow up Reassessment Current Diagnosis Coronary Artery Disease, Decubitus(Pressure Ulcer), Sepsis,Hypertension, Respiratory Failure, Hyperlipidemia Other Pertinent Diagnosis Metabolic Encephalopathy, s/p Cholecystostomy, Dementia, UTI Current Diet Pureed Labs/Tests K 3.4 Pertinent Medications D5w AT 75 ml/hr Height 5 ft 9 in Weight 78.6 kg [place] Body Weight (kg) 72.72 BMI 25.5 Weight Status Appropriate Subjective/Other Information FU for intakes. Pt reports only eating bites of meals and 50% of ONS. Food prefrences recoreded. Pt states he has a very poor appetite. Percent of energy/protein needs met: 19%/20% Burn Absent Trauma Absent GI Symptoms None Difficulty In Chewing Skin Integrity/Comment Stage II Pressure Ulcer Current % PO Negligible Minimum of two criteria Yes Energy Intake (non-severe) <75% Estimated Energy Requirement >7 days Interpretation of Weight Loss (severe) >5% in 1 month Body Fat Depletion Mild depletion (non-severe) Fluid Accumulation Mild (non-severe) Reduced Front Desk Coordinator Strength N/A (non-severe) #3 Nutrition Diagnosis Inadequate oral intake As Evidenced by Signs and Symptoms pt taking bites of food, drinking 50% of ONS Diagnosis Progress(for reassessment Worsened documentation) #2 Nutrition Diagnosis Increased nutrient needs ( specify in comment below) Diagnosis Progress(for reassessment Continues documentation) #1 Nutrition Diagnosis Malnutrition Diagnosis Progress(for reassessment Continues documentation) Is patient on ventilator? No Is Patient Ambulatory and/or Out of Bed No REE-([place] Jeor-confined to bed) [phone] Calculation [facility] for [facility]ations [facility] Additional Notes PRO needs: 98-122g (1.2-1.5 g/ kg) Fluid needs: 1 mL/kcal or per MD Nutrition Intervention Change Diet Order: Continue Pureed Diet Add Supplement/Snack (indicate name/kcal Ensure Enlive QID /protein ) Provides kCal: 1,400 Provides Protein (gm) 80 Goal #1 Wound healing Goal #2 Meet at least 80% of estimated energy and protein needs via diet and ONS Goal #3 Weight maintenance Anticipated Discharge Needs: Cardiac Pureed Diet Follow-Up By: 06/10/20 Additional Comments F/U for PO intake, ONS tolerance
[2020-06-10] MEDS: POTASSIUM CHLORIDE ER 20 MEQ TAB PO SCH (10:00)
[2020-06-10] MEDS: ASPIRIN 81 MG TAB CHEW PO SCH (10:00)
[2020-06-10] MEDS: PANTOPRAZOLE 40 MG TAB PO SCH ×2 (10:00→22:03)
[2020-06-10] MEDS: DOCUSATE SODIUM 100 MG/10 ML ORAL LIQD PO SCH ×2 (10:01→22:03)
--- NOTE | 2020-06-10 14:55 | Progress Note ---
Assessment and Plan Septic shock Metabolic Acidosis Acute Toxic metabolic encephalopathy Acute renal failure UTI (urinary tract infection) Acute Cystitis - no new issues topday, continue care as below; - completed antiinfective's per ID (cefepime 2 gms IV q8h X 7 days) - outpatient surgery f/up - continue fall precautions - continue accuchecks with glycemic control per SSI for target blood glucose of < 180 mg/dL; avoid hypoglycemia - continue to wean supplemental oxygen for target O2 sat's > 92% acutely - aspiration precautions - prn bronchodilators with pulmonary hygiene per RT - avoid nephrotoxins, renally dose all medications - avoid benzodiazepine's, reduce the possibility of delirium - prn analgesia per pain score - Maintenance of sleep-wake cycle, avoid delirium - aspiration precautions - G.I. & VTE prophylaxis - PT/OT/ROM exercises - mobility protocols for pressure ulcer prophylaxis - Monitor hemodynamics closely - continue other care per attending / other consultants - discharge planning ongoing concurrently .... Re-evaluate in am & prn Subjective Date of service: 06/10/20 Principal diagnosis: Septic shock; Metabolic Acidosis; Ac, Toxic metabolic encephalopathy; EBENEZER Interval history: Patient is seen today for: Septic shock; Metabolic Acidosis; Acute Toxic metabolic encephalopathy; Acute renal failure; UTI (urinary tract infection) Seen and examined at bedside; 24hour events reviewed; nursing and respiratory care staff consulted; no adverse overnight events reported to me; resting peacefully in bed; eating lunch; denies chest pain; no emesis or overt aspiration; discharge planning ongoing Objective Vital Signs - 12hr 06/10/20 06/10/20 06/10/20 04:02 08:11 10:00 Temperature 98.3 F 98.2 F Pulse Rate 79 79 79 Respiratory 16 16 Rate Blood Pressure 125/58 117/62 O2 Sat by Pulse 95 97 Oximetry 06/10/20 11:54 Temperature 98.0 F Pulse Rate 87 Respiratory 16 Rate Blood Pressure 105/55 O2 Sat by Pulse 94 Oximetry Constitutional: no acute distress, other (elderly looking male with normal respiratory effort at rest) Eyes: non-icteric ENT: oropharynx moist Neck: supple, no lymphadenopathy, no JVD Effort: normal Ascultation: Bilateral: clear, diminished breath sounds Percussion: Bilateral: not dull Cardiovascular: regular rate and rhythm Gastrointestinal: normoactive bowel sounds, soft, tender (mild, LLQ, RUQ), non- distended (protuberant'), other (RUQ J-P drain) Integumentary: normal Extremities: no cyanosis, no edema, pink and warm, pulses normal Neurologic: non-focal exam (grossly), pupils equal and round, CN II-XII normal, other (slow to respond) Psychiatric: other (flat affect) CBC and BMP: 06/11/20 06:16 06/10/20 05:12 ABG, PT/INR, D-dimer: PT/INR, D-dimer PT 15.5 Sec. (12.2-14.9) H 05/22/20 09:10 INR 1.25 (0.87-1.13) H 05/22/20 09:10 Abnormal lab findings: Abnormal Labs 05/22/20 05/22/20 05/22/20 09:10 09:10 09:10 WBC 17.9 H RBC 3.60 L Hgb 8.7 L Hct 26.8 L MCV 74 L MCH 24 L RDW 24.0 H Plt Count 621 H Lymph % (Auto) [place] % (Auto) [place] # (Auto) Seg Neutrophils % Seg Neuts % (Manual) 85.0 H Lymphocytes % (Manual) 5.0 L Monocytes % (Manual) 8.0 H Eosinophils % (Manual) Seg Neutrophils # Seg Neutrophils # Man 15.2 H Lymphocytes # (Manual) 0.9 L Monocytes # (Manual) 1.4 H Eosinophils # (Manual) Basophils # (Manual) PT INR APTT Sodium Potassium Chloride Carbon Dioxide BUN Creatinine Glucose POC Glucose Lactic Acid 3.30 H* Calcium Phosphorus Magnesium Direct Bilirubin Alkaline Phosphatase Troponin T 0.271 H* NT-Pro-B Natriuret Pep Total Protein Albumin HDL Cholesterol 39 L Urine pH Urine WBC (Auto) Urine Creatinine Crossmatch 05/22/20 05/22/20 05/22/20 09:10 09:10 09:32 WBC RBC Hgb Hct MCV MCH RDW Plt Count Lymph % (Auto) [place] % (Auto) [place] # (Auto) Seg Neutrophils % Seg Neuts % (Manual) Lymphocytes % (Manual) Monocytes % (Manual) Eosinophils % (Manual) Seg Neutrophils # Seg Neutrophils # Man Lymphocytes # (Manual) Monocytes # (Manual) Eosinophils # (Manual) Basophils # (Manual) PT 15.5 H INR 1.25 H APTT 47.6 H Sodium 136 L Potassium Chloride 97.2 L Carbon Dioxide BUN 36 H Creatinine 3.8 H Glucose 133 H POC Glucose Lactic Acid Calcium 7.8 L Phosphorus Magnesium Direct Bilirubin 0.3 H Alkaline Phosphatase 248 H Troponin T NT-Pro-B Natriuret Pep 1448 H Total Protein Albumin 2.8 L HDL Cholesterol Urine pH 8.0 H Urine WBC (Auto) > 182.0 H Urine Creatinine Crossmatch 05/22/20 05/22/20 05/22/20 09:49 11:42 19:48 WBC RBC Hgb Hct MCV MCH RDW Plt Count Lymph % (Auto) [place] % (Auto) [place] # (Auto) Seg Neutrophils % Seg Neuts % (Manual) Lymphocytes % (Manual) Monocytes % (Manual) Eosinophils % (Manual) Seg Neutrophils # Seg Neutrophils # Man Lymphocytes # (Manual) Monocytes # (Manual) Eosinophils # (Manual) Basophils # (Manual) PT INR APTT Sodium Potassium Chloride Carbon Dioxide BUN Creatinine Glucose POC Glucose Lactic Acid 3.70 H* 2.10 H* Calcium Phosphorus Magnesium Direct Bilirubin Alkaline Phosphatase Troponin T NT-Pro-B Natriuret Pep Total Protein Albumin HDL Cholesterol Urine pH Urine WBC (Auto) Urine Creatinine 48.1 H Crossmatch 05/22/20 05/23/20 05/23/20 23:27 05:05 05:05 WBC 20.3 H RBC 2.73 L Hgb 6.6 L Hct 20.8 L D MCV 76 L MCH 24 L RDW 23.9 H Plt Count 546 H Lymph % (Auto) 11.5 L [place] % (Auto) [place] # (Auto) 1.2 H Seg Neutrophils % 81.5 H Seg Neuts % (Manual) Lymphocytes % (Manual) Monocytes % (Manual) Eosinophils % (Manual) Seg Neutrophils # 16.5 H Seg Neutrophils # Man Lymphocytes # (Manual) Monocytes # (Manual) Eosinophils # (Manual) Basophils # (Manual) PT INR APTT Sodium Potassium Chloride 112.5 H Carbon Dioxide 20 L BUN 26 H Creatinine 1.8 H D Glucose 135 H POC Glucose 124 H Lactic Acid Calcium 6.8 L Phosphorus Magnesium Direct Bilirubin Alkaline Phosphatase Troponin T NT-Pro-B Natriuret Pep Total Protein Albumin HDL Cholesterol Urine pH Urine WBC (Auto) Urine Creatinine Crossmatch 05/23/20 05/23/20 05/23/20 05:38 06:10 11:33 WBC RBC Hgb Hct MCV MCH RDW Plt Count Lymph % (Auto) [place] % (Auto) [place] # (Auto) Seg Neutrophils % Seg Neuts % (Manual) Lymphocytes % (Manual) Monocytes % (Manual) Eosinophils % (Manual) Seg Neutrophils # Seg Neutrophils # Man Lymphocytes # (Manual) Monocytes # (Manual) Eosinophils # (Manual) Basophils # (Manual) PT INR APTT Sodium Potassium Chloride Carbon Dioxide BUN Creatinine Glucose POC Glucose 112 H 128 H Lactic Acid Calcium Phosphorus Magnesium Direct Bilirubin Alkaline Phosphatase Troponin T NT-Pro-B Natriuret Pep Total Protein Albumin HDL Cholesterol Urine pH Urine WBC (Auto) Urine Creatinine Crossmatch See Detail 05/23/20 05/23/20 05/23/20 14:45 17:49 23:34 WBC RBC Hgb 8.4 L Hct 26.4 L MCV MCH RDW Plt Count Lymph % (Auto) [place] % (Auto) [place] # (Auto) Seg Neutrophils % Seg Neuts % (Manual) Lymphocytes % (Manual) Monocytes % (Manual) Eosinophils % (Manual) Seg Neutrophils # Seg Neutrophils # Man Lymphocytes # (Manual) Monocytes # (Manual) Eosinophils # (Manual) Basophils # (Manual) PT INR APTT Sodium Potassium Chloride Carbon Dioxide BUN Creatinine Glucose POC Glucose 112 H 116 H Lactic Acid Calcium Phosphorus Magnesium Direct Bilirubin Alkaline Phosphatase Troponin T NT-Pro-B Natriuret Pep Total Protein Albumin HDL Cholesterol Urine pH Urine WBC (Auto) Urine Creatinine Crossmatch 05/24/20 05/24/20 05/25/20 05:45 05:45 05:00 WBC 18.4 H RBC 3.35 L Hgb 8.6 L Hct 26.5 L MCV 79 L MCH 26 L RDW 23.9 H Plt Count Lymph % (Auto) [place] % (Auto) [place] # (Auto) Seg Neutrophils % Seg Neuts % (Manual) 81.0 H Lymphocytes % (Manual) 12.0 L Monocytes % (Manual) Eosinophils % (Manual) Seg Neutrophils # Seg Neutrophils # Man 14.9 H Lymphocytes # (Manual) Monocytes # (Manual) 1.3 H Eosinophils # (Manual) Basophils # (Manual) PT INR APTT Sodium Potassium 3.1 L Chloride 109.5 H Carbon Dioxide BUN Creatinine Glucose 111 H POC Glucose Lactic Acid Calcium 6.8 L 7.2 L Phosphorus Magnesium 1.00 L Direct Bilirubin Alkaline Phosphatase Troponin T NT-Pro-B Natriuret Pep Total Protein Albumin HDL Cholesterol Urine pH Urine WBC (Auto) Urine Creatinine Crossmatch 05/25/20 05/25/20 05/25/20 09:34 11:31 18:25 WBC 12.7 H RBC 3.14 L Hgb 8.0 L Hct 24.6 L MCV 78 L MCH 25 L RDW 25.0 H Plt Count Lymph % (Auto) [place] % (Auto) [place] # (Auto) Seg Neutrophils % Seg Neuts % (Manual) 94.0 H Lymphocytes % (Manual) 3.0 L Monocytes % (Manual) Eosinophils % (Manual) Seg Neutrophils # Seg Neutrophils # Man 11.9 H Lymphocytes # (Manual) 0.4 L Monocytes # (Manual) Eosinophils # (Manual) Basophils # (Manual) PT INR APTT Sodium Potassium Chloride Carbon Dioxide BUN Creatinine Glucose POC Glucose 63 L 57 L Lactic Acid Calcium Phosphorus Magnesium Direct Bilirubin Alkaline Phosphatase Troponin T NT-Pro-B Natriuret Pep Total Protein Albumin HDL Cholesterol Urine pH Urine WBC (Auto) Urine Creatinine Crossmatch 05/25/20 05/26/20 05/26/20 23:44 04:16 04:16 WBC RBC 3.07 L Hgb 8.0 L Hct 24.2 L MCV 79 L MCH 26 L RDW 24.8 H Plt Count Lymph % (Auto) [place] % (Auto) [place] # (Auto) Seg Neutrophils % Seg Neuts % (Manual) 85.0 H Lymphocytes % (Manual) 8.0 L Monocytes % (Manual) Eosinophils % (Manual) 5.0 H Seg Neutrophils # Seg Neutrophils # Man 7.9 H Lymphocytes # (Manual) 0.7 L Monocytes # (Manual) Eosinophils # (Manual) 0.5 H Basophils # (Manual) PT INR APTT Sodium Potassium 3.4 L Chloride 108.6 H Carbon Dioxide BUN Creatinine 0.7 L Glucose 101 H POC Glucose 52 L Lactic Acid Calcium 7.7 L Phosphorus Magnesium Direct Bilirubin Alkaline Phosphatase Troponin T NT-Pro-B Natriuret Pep Total Protein Albumin HDL Cholesterol Urine pH Urine WBC (Auto) Urine Creatinine Crossmatch 05/26/20 05/27/20 05/27/20 12:41 00:45 06:23 WBC RBC Hgb Hct MCV MCH RDW Plt Count Lymph % (Auto) [place] % (Auto) [place] # (Auto) Seg Neutrophils % Seg Neuts % (Manual) Lymphocytes % (Manual) Monocytes % (Manual) Eosinophils % (Manual) Seg Neutrophils # Seg Neutrophils # Man Lymphocytes # (Manual) Monocytes # (Manual) Eosinophils # (Manual) Basophils # (Manual) PT INR APTT Sodium 135 L Potassium 3.4 L Chloride Carbon Dioxide BUN Creatinine Glucose POC Glucose 64 L Lactic Acid Calcium 7.4 L Phosphorus Magnesium Direct Bilirubin Alkaline Phosphatase 566 H Troponin T NT-Pro-B Natriuret Pep Total Protein 5.3 L D Albumin 1.9 L HDL Cholesterol Urine pH Urine WBC (Auto) Urine Creatinine Crossmatch 05/28/20 05/29/20 05/29/20 04:35 17:01 18:54 WBC RBC Hgb Hct MCV MCH RDW Plt Count Lymph % (Auto) [place] % (Auto) [place] # (Auto) Seg Neutrophils % Seg Neuts % (Manual) Lymphocytes % (Manual) Monocytes % (Manual) Eosinophils % (Manual) Seg Neutrophils # Seg Neutrophils # Man Lymphocytes # (Manual) Monocytes # (Manual) Eosinophils # (Manual) Basophils # (Manual) PT INR APTT Sodium Potassium Chloride Carbon Dioxide BUN Creatinine 0.7 L Glucose POC Glucose 57 L 135 H Lactic Acid Calcium 7.7 L Phosphorus Magnesium Direct Bilirubin Alkaline Phosphatase Troponin T NT-Pro-B Natriuret Pep Total Protein Albumin HDL Cholesterol Urine pH Urine WBC (Auto) Urine Creatinine Crossmatch 05/30/20 05/30/20 05/30/20 05:42 11:30 23:28 WBC RBC Hgb Hct MCV MCH RDW Plt Count Lymph % (Auto) [place] % (Auto) [place] # (Auto) Seg Neutrophils % Seg Neuts % (Manual) Lymphocytes % (Manual) Monocytes % (Manual) Eosinophils % (Manual) Seg Neutrophils # Seg Neutrophils # Man Lymphocytes # (Manual) Monocytes # (Manual) Eosinophils # (Manual) Basophils # (Manual) PT INR APTT Sodium Potassium 3.4 L Chloride Carbon Dioxide BUN 6 L Creatinine 0.6 L Glucose 105 H POC Glucose 51 L 55 L Lactic Acid Calcium 7.5 L Phosphorus 1.80 L Magnesium Direct Bilirubin Alkaline Phosphatase Troponin T NT-Pro-B Natriuret Pep Total Protein Albumin HDL Cholesterol Urine pH Urine WBC (Auto) Urine Creatinine Crossmatch 05/31/20 05/31/20 06/04/20 05:37 11:49 18:35 WBC RBC Hgb Hct MCV MCH RDW Plt Count Lymph % (Auto) [place] % (Auto) [place] # (Auto) Seg Neutrophils % Seg Neuts % (Manual) Lymphocytes % (Manual) Monocytes % (Manual) Eosinophils % (Manual) Seg Neutrophils # Seg Neutrophils # Man Lymphocytes # (Manual) Monocytes # (Manual) Eosinophils # (Manual) Basophils # (Manual) PT INR APTT Sodium 136 L Potassium Chloride Carbon Dioxide BUN 6 L Creatinine 0.6 L Glucose POC Glucose 115 H 141 H Lactic Acid Calcium 7.5 L Phosphorus Magnesium Direct Bilirubin Alkaline Phosphatase Troponin T NT-Pro-B Natriuret Pep Total Protein Albumin HDL Cholesterol Urine pH Urine WBC (Auto) Urine Creatinine Crossmatch 06/05/20 06/05/20 06/05/20 07:43 10:42 11:35 WBC 20.4 H RBC 3.08 L Hgb 7.6 L Hct 23.5 L MCV 76 L MCH 25 L RDW 26.1 H Plt Count Lymph % (Auto) [place] % (Auto) [place] # (Auto) Seg Neutrophils % Seg Neuts % (Manual) 82.0 H Lymphocytes % (Manual) 9.0 L Monocytes % (Manual) Eosinophils % (Manual) Seg Neutrophils # Seg Neutrophils # Man 16.7 H Lymphocytes # (Manual) Monocytes # (Manual) 1.0 H Eosinophils # (Manual) Basophils # (Manual) 67.7 H PT INR APTT Sodium Potassium Chloride Carbon Dioxide BUN 8 L Creatinine 0.5 L Glucose POC Glucose 131 H Lactic Acid Calcium 7.2 L Phosphorus Magnesium Direct Bilirubin Alkaline Phosphatase Troponin T NT-Pro-B Natriuret Pep Total Protein Albumin HDL Cholesterol Urine pH Urine WBC (Auto) Urine Creatinine Crossmatch 06/05/20 06/06/20 06/06/20 16:29 12:42 22:45 WBC 13.9 H RBC 2.61 L Hgb 6.7 L 6.8 L Hct 19.8 L* 21.0 L MCV 76 L MCH 26 L RDW 25.8 H Plt Count Lymph % (Auto) [place] % (Auto) [place] # (Auto) Seg Neutrophils % Seg Neuts % (Manual) Lymphocytes % (Manual) Monocytes % (Manual) Eosinophils % (Manual) Seg Neutrophils # Seg Neutrophils # Man Lymphocytes # (Manual) Monocytes # (Manual) Eosinophils # (Manual) Basophils # (Manual) PT INR APTT Sodium Potassium Chloride Carbon Dioxide BUN Creatinine Glucose POC Glucose 118 H Lactic Acid Calcium Phosphorus Magnesium Direct Bilirubin Alkaline Phosphatase Troponin T NT-Pro-B Natriuret Pep Total Protein Albumin HDL Cholesterol Urine pH Urine WBC (Auto) Urine Creatinine Crossmatch 06/07/20 06/07/20 06/07/20 05:19 06:48 16:00 WBC RBC Hgb 6.4 L 8.7 L Hct 19.5 L* 25.5 L D MCV MCH RDW Plt Count Lymph % (Auto) [place] % (Auto) [place] # (Auto) Seg Neutrophils % Seg Neuts % (Manual) Lymphocytes % (Manual) Monocytes % (Manual) Eosinophils % (Manual) Seg Neutrophils # Seg Neutrophils # Man Lymphocytes # (Manual) Monocytes # (Manual) Eosinophils # (Manual) Basophils # (Manual) PT INR APTT Sodium Potassium Chloride Carbon Dioxide BUN Creatinine Glucose POC Glucose Lactic Acid Calcium Phosphorus Magnesium Direct Bilirubin Alkaline Phosphatase Troponin T NT-Pro-B Natriuret Pep Total Protein Albumin HDL Cholesterol Urine pH Urine WBC (Auto) Urine Creatinine Crossmatch See Detail 06/07/20 06/08/20 06/08/20 22:50 05:34 05:34 WBC 13.6 H RBC 3.55 L Hgb 9.5 L 9.5 L Hct 29.1 L 28.5 L MCV 80 L MCH 27 L RDW 22.4 H Plt Count Lymph % (Auto) [place] % (Auto) [place] # (Auto) Seg Neutrophils % Seg Neuts % (Manual) 93.0 H Lymphocytes % (Manual) 3.0 L Monocytes % (Manual) Eosinophils % (Manual) Seg Neutrophils # Seg Neutrophils # Man 12.6 H Lymphocytes # (Manual) 0.4 L Monocytes # (Manual) Eosinophils # (Manual) Basophils # (Manual) PT INR APTT Sodium Potassium 3.4 L Chloride Carbon Dioxide BUN 8 L Creatinine 0.5 L Glucose POC Glucose Lactic Acid Calcium 7.3 L Phosphorus Magnesium Direct Bilirubin Alkaline Phosphatase Troponin T NT-Pro-B Natriuret Pep Total Protein Albumin HDL Cholesterol Urine pH Urine WBC (Auto) Urine Creatinine Crossmatch 06/08/20 06/09/20 06/10/20 12:05 12:22 05:12 WBC RBC 3.19 L Hgb 8.7 L Hct 25.6 L MCV 80 L MCH 27 L RDW 22.7 H Plt Count Lymph % (Auto) [place] % (Auto) 10.4 H [place] # (Auto) Seg Neutrophils % Seg Neuts % (Manual) Lymphocytes % (Manual) Monocytes % (Manual) Eosinophils % (Manual) Seg Neutrophils # Seg Neutrophils # Man Lymphocytes # (Manual) Monocytes # (Manual) Eosinophils # (Manual) Basophils # (Manual) PT INR APTT Sodium Potassium Chloride Carbon Dioxide BUN Creatinine Glucose POC Glucose 121 H 118 H Lactic Acid Calcium Phosphorus Magnesium Direct Bilirubin Alkaline Phosphatase Troponin T NT-Pro-B Natriuret Pep Total Protein Albumin HDL Cholesterol Urine pH Urine WBC (Auto) Urine Creatinine Crossmatch 06/10/20 06/10/20 05:12 11:52 WBC RBC Hgb Hct MCV MCH RDW Plt Count Lymph % (Auto) [place] % (Auto) [place] # (Auto) Seg Neutrophils % Seg Neuts % (Manual) Lymphocytes % (Manual) Monocytes % (Manual) Eosinophils % (Manual) Seg Neutrophils # Seg Neutrophils # Man Lymphocytes # (Manual) Monocytes # (Manual) Eosinophils # (Manual) Basophils # (Manual) PT INR APTT Sodium Potassium 3.3 L Chloride Carbon Dioxide 33 H BUN 7 L Creatinine 0.4 L Glucose POC Glucose 109 H Lactic Acid Calcium 7.1 L Phosphorus Magnesium Direct Bilirubin Alkaline Phosphatase Troponin T NT-Pro-B Natriuret Pep Total Protein Albumin HDL Cholesterol Urine pH Urine WBC (Auto) Urine Creatinine Crossmatch Chest x-ray: other (none today) Allied health notes reviewed: nursing
[2020-06-11 07:08] LABS: Hematocrit 30.4 % (35.5-45.6); Mean Corpuscular HGB Conc 33 % (32-34); Mean Corpuscular Volume 81 fl (84-94); Platelet Count 391 K/mm3 (140-440); Red Blood Count 3.74 M/mm3 (3.65-5.03)
[2020-06-11 08:44] LABS: Red Cell Distribution Width 22.8 % (13.2-15.2)
[2020-06-11] MEDS: PANTOPRAZOLE 40 MG TAB PO SCH (10:21)
[2020-06-11] MEDS: POTASSIUM CHLORIDE ER 20 MEQ TAB PO SCH (10:21)
[2020-06-11] MEDS: ASPIRIN 81 MG TAB CHEW PO SCH (10:21)
[2020-06-11] MEDS: DOCUSATE SODIUM 100 MG/10 ML ORAL LIQD PO SCH ×2 (10:22→21:06)
--- NOTE | 2020-06-11 12:49 | Progress Note ---
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 Patient was found to have suprapubic tenderness and temp of 101.4 F. In the ED patient was found to be hypotensive with a systolic blood pressure in the 80s and tachycardic. Labs significant for wbc 18, BUN 36, Creat 3.8 and Lactate 3.7. Patient was found to have UTI, septic shock, EBENEZER and toxic metabolic encephalopathy. Patient was admitted to ICU and initiated on sepsis protocol and initiated on IV pressor. --Sepsis with shock, status post empiric antibiotic and off pressors --UTI, treated with antibiotics --EBENEZER, vasomotor nephropathy and ATN in the setting of septic shock. CT abdomen negative for hydro --toxic metabolic encephalopathy, CT head without any acute process --Anemia, likely due to chronic disease --Cholecystitis, inflammation seen on CT, cholecystectomy tube in place on admission. Need further outpatient follow-up with general surgery --Hypokalemia, repleted --Hypophosphatemia, repleted --Hyponatremia, likely due to dehydration resolved --Elevated, troponin, likely NSTEMI type II in the setting of sepsis and EBENEZER. 2D echocardiogram with preserved EF --Urinary retention, likely due to BPH, continue Brewster catheter --h/o prior CVA, cont aspirin and statin for now. --Full code --Poor prognosis Hospital course: 05/23/2020 -Septic shock likely due to UTI, patient is on IV cefepime, IV fluid and pressor support. Critical care consulted -Acute renal failure, improved with IV fluids, nephrology consulted 05/24/2020 -Admitted for septic shock due to UTI, patient is on IV cefepime, IV fluids, pressor support, ID consulted. -Acute renal failure IV fluids and nephrology consult -Patient is saturating 100% on room air -Patient was alert 05/25/2020 -Patient is on IV cefepime and ID increase the dose. -Acute renal failure is improving -Patient had history of cholecystostomy tube placement and was seen by general surgery and order imaging study. -Patient is still on pressors for low blood pressure 05/27/2020 -Patient was admitted for septic shock and he is doing well. Continue with cefepime while he is here and can be discharged with po Levaquin to finish a total of 7 days course of antibiotics. He was evaluated by general surgery and imaging was done and no further work-up is needed. GI also saw the patient. Patient is stable for discharge Case management is working for placement. Patient's family does not want him to go back to the facility where he came from. 05/28/2020 patient is alert today able to make needs known at this particular time. Recently admitted for septic shock. Currently treated with cefepime while in house. Awaiting placement will change to Levaquin to complete 6 more days of antibiotics. Stable for discharge awaiting placement Case management. 05/29/2020. Patient doing well able to make all needs known no new concerns. Patient wants to know that he was doing well. No more in shock. Awaiting placement. Patient tolerated change to Levaquin well. Patient is not eating solid foods that well will change to pured diet and see how effective that may be. 05/30/2020. Patient resting comfortably no acute distress. Hospital course uncomplicated over p.m. Patient doing better with change in the consistency of diet. Currently awaiting placement. 05/31/2020. Etiology of acute kidney injury secondary to vasomotor nephropathy/ATN in the setting of sepsis/septic shock. CT abdomen negative for hydronephrosis. ID recommended cefepime 2 g every 8 hours with completion total of 7 days. Case management working on placement. 06/01/2020. Continue IV antibiotics per ID recommendations. Case management still working on placement. 06/02/20: Negative Covid test. Patient planned discharged to [facility] rehab facility in stable condition with outpatient follow-up. Placement waiting on financial agreement with the [facility]. pension manager and family in agreement. 06/03: Discharge pending on placement 06/04: Pending placement 06/05: Pending placement. c/o abdominal pain today. noted to have high white count today, patient was treated with cefepime's for 7 days per ID recommendation. Will resume cefepime and reconsult GS, Monitor CBC. 06/06: repeat CT abdomen suggestive of possible cystitis - will treat with 3 days of rocephin and stop cefepime, d/c brewster. add stool softner. No further surgical intervention per GS. pending placement 06/07: H/H dropped, transfuse one unit PRBC - ordered stool for occult blood 06/08: placed back brewster today as patient developed urinary retention. h/h stable after transfusion. pending placement. d/c plavix and heparin, cont aspirin only for anemia. 06/09: h/h stable. discussed with daughter in details about his overall clinical condition. I recommended possible hospice care for the patient considering his underlying chronic conditions - CVA with bedbound state, chronic cholecystitis, recurrent UTI, chronic physical debility, chronic anemia. daughter is in agreement - will cont to follow. She will discuss with her brother about code status and will update us tomorrow. 06/10: Continue supportive care, awaiting placement. hospice and snf placement going. 06/11 no acute events overnight, lab results reviewed, repeat BMP in a.m., awaiting placement, pulmonary note reviewed Objective - Constitutional Vitals: Vital Signs - 12hr 06/11/20 06/11/20 06/11/20 04:11 08:03 10:00 Temperature 97.6 F 98.1 F Pulse Rate 89 88 81 Respiratory 18 18 Rate Blood Pressure 132/67 130/70 O2 Sat by Pulse 100 96 Oximetry 06/11/20 11:14 Temperature 97.4 F L Pulse Rate 91 H Respiratory 18 Rate Blood Pressure 105/60 O2 Sat by Pulse 97 Oximetry General appearance: Present: no acute distress - EENT Eyes: PERRL, EOM intact ENT: no thrush - Neck Neck: supple, normal ROM, no masses or JVD - Respiratory Respiratory effort: normal Respiratory: bilateral: CTA, diminished - Cardiovascular Rhythm: regular Heart Sounds: Present: S1 & S2 Extremities: No edema - Gastrointestinal General gastrointestinal: Present: soft, non-tender (Has a cholecystostomy draining catheter) Rectal Exam: deferred - Integumentary Integumentary: clear - Labs CBC & Chem 7: 06/11/20 06:16 06/10/20 05:12 Labs: Abnormal lab results 06/10/20 06/10/20 06/11/20 Range/Units 22:01 23:15 06:16 Hgb 10.0 L (11.8-15.2) gm/dl Hct 30.4 L (35.5-45.6) % MCV 81 L (84-94) fl MCH 27 L (28-32) pg RDW 22.8 H (13.2-15.2) % POC Glucose 68 L 112 H (70-105) mg/dL 06/11/20 Range/Units 11:12 Hgb (11.8-15.2) gm/dl Hct (35.5-45.6) % MCV (84-94) fl MCH (28-32) pg RDW (13.2-15.2) % POC Glucose 120 H (70-105) mg/dL HEART Score - HEART Score Troponin: Troponin T 0.271 ng/mL (0.00-0.029) H* 05/22/20 09:10
--- NOTE | 2020-06-11 13:55 | Progress Note ---
Assessment and Plan Septic shock Metabolic Acidosis Acute Toxic metabolic encephalopathy Acute renal failure UTI (urinary tract infection) Acute Cystitis - increase PT/OT / increase ambulation as tolerated - no new issues today, continue care as below; - completed antiinfective's per ID (cefepime 2 gms IV q8h X 7 days) - outpatient surgery f/up - continue fall precautions - continue accuchecks with glycemic control per SSI for target blood glucose of < 180 mg/dL; avoid hypoglycemia - continue to wean supplemental oxygen for target O2 sat's > 92% acutely - aspiration precautions - prn bronchodilators with pulmonary hygiene per RT - avoid nephrotoxins, renally dose all medications - avoid benzodiazepine's, reduce the possibility of delirium - prn analgesia per pain score - Maintenance of sleep-wake cycle, avoid delirium - aspiration precautions - G.I. & VTE prophylaxis - PT/OT/ROM exercises - mobility protocols for pressure ulcer prophylaxis - Monitor hemodynamics closely - continue other care per attending / other consultants - discharge planning ongoing concurrently .... Re-evaluate in am & prn Subjective Date of service: 06/11/20 Principal diagnosis: Septic shock; Metabolic Acidosis; Ac, Toxic metabolic encephalopathy; EBENEZER Interval history: Patient is seen today for: Septic shock; Metabolic Acidosis; Acute Toxic metabolic encephalopathy; Acute renal failure; UTI (urinary tract infection) Seen and examined at bedside; 24hour events reviewed; nursing and respiratory care staff consulted; no adverse overnight events reported to me; resting peacefully in bed; more alert and appropriate; no emesis or overt aspiration Objective Vital Signs - 12hr 06/11/20 06/11/20 06/11/20 04:11 08:03 10:00 Temperature 97.6 F 98.1 F Pulse Rate 89 88 81 Respiratory 18 18 Rate Blood Pressure 132/67 130/70 O2 Sat by Pulse 100 96 Oximetry 06/11/20 11:14 Temperature 97.4 F L Pulse Rate 91 H Respiratory 18 Rate Blood Pressure 105/60 O2 Sat by Pulse 97 Oximetry Constitutional: no acute distress, other (elderly looking male with normal respiratory effort at rest) Eyes: non-icteric ENT: oropharynx moist Neck: supple, no lymphadenopathy, no JVD Effort: normal Ascultation: Bilateral: clear, diminished breath sounds Percussion: Bilateral: not dull Cardiovascular: regular rate and rhythm Gastrointestinal: normoactive bowel sounds, soft, tender (mild, LLQ, RUQ), non- distended (protuberant'), other (RUQ J-P drain) Integumentary: normal Extremities: no cyanosis, no edema, pink and warm, pulses normal Neurologic: non-focal exam (grossly), pupils equal and round, CN II-XII normal, other (slow to respond) Psychiatric: other (flat affect) CBC and BMP: 06/12/20 05:30 06/12/20 05:30 ABG, PT/INR, D-dimer: PT/INR, D-dimer PT 15.5 Sec. (12.2-14.9) H 05/22/20 09:10 INR 1.25 (0.87-1.13) H 05/22/20 09:10 Abnormal lab findings: Abnormal Labs 05/22/20 05/22/20 05/22/20 09:10 09:10 09:10 WBC 17.9 H RBC 3.60 L Hgb 8.7 L Hct 26.8 L MCV 74 L MCH 24 L RDW 24.0 H Plt Count 621 H Lymph % (Auto) Greene % (Auto) Greene # (Auto) Seg Neutrophils % Seg Neuts % (Manual) 85.0 H Lymphocytes % (Manual) 5.0 L Monocytes % (Manual) 8.0 H Eosinophils % (Manual) Seg Neutrophils # Seg Neutrophils # Man 15.2 H Lymphocytes # (Manual) 0.9 L Monocytes # (Manual) 1.4 H Eosinophils # (Manual) Basophils # (Manual) PT INR APTT Sodium Potassium Chloride Carbon Dioxide BUN Creatinine Glucose POC Glucose Lactic Acid 3.30 H* Calcium Phosphorus Magnesium Direct Bilirubin Alkaline Phosphatase Troponin T 0.271 H* NT-Pro-B Natriuret Pep Total Protein Albumin HDL Cholesterol 39 L Urine pH Urine WBC (Auto) Urine Creatinine Crossmatch 05/22/20 05/22/20 05/22/20 09:10 09:10 09:32 WBC RBC Hgb Hct MCV MCH RDW Plt Count Lymph % (Auto) Greene % (Auto) Greene # (Auto) Seg Neutrophils % Seg Neuts % (Manual) Lymphocytes % (Manual) Monocytes % (Manual) Eosinophils % (Manual) Seg Neutrophils # Seg Neutrophils # Man Lymphocytes # (Manual) Monocytes # (Manual) Eosinophils # (Manual) Basophils # (Manual) PT 15.5 H INR 1.25 H APTT 47.6 H Sodium 136 L Potassium Chloride 97.2 L Carbon Dioxide BUN 36 H Creatinine 3.8 H Glucose 133 H POC Glucose Lactic Acid Calcium 7.8 L Phosphorus Magnesium Direct Bilirubin 0.3 H Alkaline Phosphatase 248 H Troponin T NT-Pro-B Natriuret Pep 1448 H Total Protein Albumin 2.8 L HDL Cholesterol Urine pH 8.0 H Urine WBC (Auto) > 182.0 H Urine Creatinine Crossmatch 05/22/20 05/22/20 05/22/20 09:49 11:42 19:48 WBC RBC Hgb Hct MCV MCH RDW Plt Count Lymph % (Auto) Greene % (Auto) Greene # (Auto) Seg Neutrophils % Seg Neuts % (Manual) Lymphocytes % (Manual) Monocytes % (Manual) Eosinophils % (Manual) Seg Neutrophils # Seg Neutrophils # Man Lymphocytes # (Manual) Monocytes # (Manual) Eosinophils # (Manual) Basophils # (Manual) PT INR APTT Sodium Potassium Chloride Carbon Dioxide BUN Creatinine Glucose POC Glucose Lactic Acid 3.70 H* 2.10 H* Calcium Phosphorus Magnesium Direct Bilirubin Alkaline Phosphatase Troponin T NT-Pro-B Natriuret Pep Total Protein Albumin HDL Cholesterol Urine pH Urine WBC (Auto) Urine Creatinine 48.1 H Crossmatch 05/22/20 05/23/20 05/23/20 23:27 05:05 05:05 WBC 20.3 H RBC 2.73 L Hgb 6.6 L Hct 20.8 L D MCV 76 L MCH 24 L RDW 23.9 H Plt Count 546 H Lymph % (Auto) 11.5 L Greene % (Auto) Greene # (Auto) 1.2 H Seg Neutrophils % 81.5 H Seg Neuts % (Manual) Lymphocytes % (Manual) Monocytes % (Manual) Eosinophils % (Manual) Seg Neutrophils # 16.5 H Seg Neutrophils # Man Lymphocytes # (Manual) Monocytes # (Manual) Eosinophils # (Manual) Basophils # (Manual) PT INR APTT Sodium Potassium Chloride 112.5 H Carbon Dioxide 20 L BUN 26 H Creatinine 1.8 H D Glucose 135 H POC Glucose 124 H Lactic Acid Calcium 6.8 L Phosphorus Magnesium Direct Bilirubin Alkaline Phosphatase Troponin T NT-Pro-B Natriuret Pep Total Protein Albumin HDL Cholesterol Urine pH Urine WBC (Auto) Urine Creatinine Crossmatch 05/23/20 05/23/20 05/23/20 05:38 06:10 11:33 WBC RBC Hgb Hct MCV MCH RDW Plt Count Lymph % (Auto) Greene % (Auto) Greene # (Auto) Seg Neutrophils % Seg Neuts % (Manual) Lymphocytes % (Manual) Monocytes % (Manual) Eosinophils % (Manual) Seg Neutrophils # Seg Neutrophils # Man Lymphocytes # (Manual) Monocytes # (Manual) Eosinophils # (Manual) Basophils # (Manual) PT INR APTT Sodium Potassium Chloride Carbon Dioxide BUN Creatinine Glucose POC Glucose 112 H 128 H Lactic Acid Calcium Phosphorus Magnesium Direct Bilirubin Alkaline Phosphatase Troponin T NT-Pro-B Natriuret Pep Total Protein Albumin HDL Cholesterol Urine pH Urine WBC (Auto) Urine Creatinine Crossmatch See Detail 05/23/20 05/23/20 05/23/20 14:45 17:49 23:34 WBC RBC Hgb 8.4 L Hct 26.4 L MCV MCH RDW Plt Count Lymph % (Auto) Greene % (Auto) Greene # (Auto) Seg Neutrophils % Seg Neuts % (Manual) Lymphocytes % (Manual) Monocytes % (Manual) Eosinophils % (Manual) Seg Neutrophils # Seg Neutrophils # Man Lymphocytes # (Manual) Monocytes # (Manual) Eosinophils # (Manual) Basophils # (Manual) PT INR APTT Sodium Potassium Chloride Carbon Dioxide BUN Creatinine Glucose POC Glucose 112 H 116 H Lactic Acid Calcium Phosphorus Magnesium Direct Bilirubin Alkaline Phosphatase Troponin T NT-Pro-B Natriuret Pep Total Protein Albumin HDL Cholesterol Urine pH Urine WBC (Auto) Urine Creatinine Crossmatch 05/24/20 05/24/20 05/25/20 05:45 05:45 05:00 WBC 18.4 H RBC 3.35 L Hgb 8.6 L Hct 26.5 L MCV 79 L MCH 26 L RDW 23.9 H Plt Count Lymph % (Auto) Greene % (Auto) Greene # (Auto) Seg Neutrophils % Seg Neuts % (Manual) 81.0 H Lymphocytes % (Manual) 12.0 L Monocytes % (Manual) Eosinophils % (Manual) Seg Neutrophils # Seg Neutrophils # Man 14.9 H Lymphocytes # (Manual) Monocytes # (Manual) 1.3 H Eosinophils # (Manual) Basophils # (Manual) PT INR APTT Sodium Potassium 3.1 L Chloride 109.5 H Carbon Dioxide BUN Creatinine Glucose 111 H POC Glucose Lactic Acid Calcium 6.8 L 7.2 L Phosphorus Magnesium 1.00 L Direct Bilirubin Alkaline Phosphatase Troponin T NT-Pro-B Natriuret Pep Total Protein Albumin HDL Cholesterol Urine pH Urine WBC (Auto) Urine Creatinine Crossmatch 05/25/20 05/25/20 05/25/20 09:34 11:31 18:25 WBC 12.7 H RBC 3.14 L Hgb 8.0 L Hct 24.6 L MCV 78 L MCH 25 L RDW 25.0 H Plt Count Lymph % (Auto) Greene % (Auto) Greene # (Auto) Seg Neutrophils % Seg Neuts % (Manual) 94.0 H Lymphocytes % (Manual) 3.0 L Monocytes % (Manual) Eosinophils % (Manual) Seg Neutrophils # Seg Neutrophils # Man 11.9 H Lymphocytes # (Manual) 0.4 L Monocytes # (Manual) Eosinophils # (Manual) Basophils # (Manual) PT INR APTT Sodium Potassium Chloride Carbon Dioxide BUN Creatinine Glucose POC Glucose 63 L 57 L Lactic Acid Calcium Phosphorus Magnesium Direct Bilirubin Alkaline Phosphatase Troponin T NT-Pro-B Natriuret Pep Total Protein Albumin HDL Cholesterol Urine pH Urine WBC (Auto) Urine Creatinine Crossmatch 05/25/20 05/26/20 05/26/20 23:44 04:16 04:16 WBC RBC 3.07 L Hgb 8.0 L Hct 24.2 L MCV 79 L MCH 26 L RDW 24.8 H Plt Count Lymph % (Auto) Greene % (Auto) Greene # (Auto) Seg Neutrophils % Seg Neuts % (Manual) 85.0 H Lymphocytes % (Manual) 8.0 L Monocytes % (Manual) Eosinophils % (Manual) 5.0 H Seg Neutrophils # Seg Neutrophils # Man 7.9 H Lymphocytes # (Manual) 0.7 L Monocytes # (Manual) Eosinophils # (Manual) 0.5 H Basophils # (Manual) PT INR APTT Sodium Potassium 3.4 L Chloride 108.6 H Carbon Dioxide BUN Creatinine 0.7 L Glucose 101 H POC Glucose 52 L Lactic Acid Calcium 7.7 L Phosphorus Magnesium Direct Bilirubin Alkaline Phosphatase Troponin T NT-Pro-B Natriuret Pep Total Protein Albumin HDL Cholesterol Urine pH Urine WBC (Auto) Urine Creatinine Crossmatch 05/26/20 05/27/20 05/27/20 12:41 00:45 06:23 WBC RBC Hgb Hct MCV MCH RDW Plt Count Lymph % (Auto) Greene % (Auto) Greene # (Auto) Seg Neutrophils % Seg Neuts % (Manual) Lymphocytes % (Manual) Monocytes % (Manual) Eosinophils % (Manual) Seg Neutrophils # Seg Neutrophils # Man Lymphocytes # (Manual) Monocytes # (Manual) Eosinophils # (Manual) Basophils # (Manual) PT INR APTT Sodium 135 L Potassium 3.4 L Chloride Carbon Dioxide BUN Creatinine Glucose POC Glucose 64 L Lactic Acid Calcium 7.4 L Phosphorus Magnesium Direct Bilirubin Alkaline Phosphatase 566 H Troponin T NT-Pro-B Natriuret Pep Total Protein 5.3 L D Albumin 1.9 L HDL Cholesterol Urine pH Urine WBC (Auto) Urine Creatinine Crossmatch 05/28/20 05/29/20 05/29/20 04:35 17:01 18:54 WBC RBC Hgb Hct MCV MCH RDW Plt Count Lymph % (Auto) Greene % (Auto) Greene # (Auto) Seg Neutrophils % Seg Neuts % (Manual) Lymphocytes % (Manual) Monocytes % (Manual) Eosinophils % (Manual) Seg Neutrophils # Seg Neutrophils # Man Lymphocytes # (Manual) Monocytes # (Manual) Eosinophils # (Manual) Basophils # (Manual) PT INR APTT Sodium Potassium Chloride Carbon Dioxide BUN Creatinine 0.7 L Glucose POC Glucose 57 L 135 H Lactic Acid Calcium 7.7 L Phosphorus Magnesium Direct Bilirubin Alkaline Phosphatase Troponin T NT-Pro-B Natriuret Pep Total Protein Albumin HDL Cholesterol Urine pH Urine WBC (Auto) Urine Creatinine Crossmatch 05/30/20 05/30/20 05/30/20 05:42 11:30 23:28 WBC RBC Hgb Hct MCV MCH RDW Plt Count Lymph % (Auto) Greene % (Auto) Greene # (Auto) Seg Neutrophils % Seg Neuts % (Manual) Lymphocytes % (Manual) Monocytes % (Manual) Eosinophils % (Manual) Seg Neutrophils # Seg Neutrophils # Man Lymphocytes # (Manual) Monocytes # (Manual) Eosinophils # (Manual) Basophils # (Manual) PT INR APTT Sodium Potassium 3.4 L Chloride Carbon Dioxide BUN 6 L Creatinine 0.6 L Glucose 105 H POC Glucose 51 L 55 L Lactic Acid Calcium 7.5 L Phosphorus 1.80 L Magnesium Direct Bilirubin Alkaline Phosphatase Troponin T NT-Pro-B Natriuret Pep Total Protein Albumin HDL Cholesterol Urine pH Urine WBC (Auto) Urine Creatinine Crossmatch 05/31/20 05/31/20 06/04/20 05:37 11:49 18:35 WBC RBC Hgb Hct MCV MCH RDW Plt Count Lymph % (Auto) Greene % (Auto) Greene # (Auto) Seg Neutrophils % Seg Neuts % (Manual) Lymphocytes % (Manual) Monocytes % (Manual) Eosinophils % (Manual) Seg Neutrophils # Seg Neutrophils # Man Lymphocytes # (Manual) Monocytes # (Manual) Eosinophils # (Manual) Basophils # (Manual) PT INR APTT Sodium 136 L Potassium Chloride Carbon Dioxide BUN 6 L Creatinine 0.6 L Glucose POC Glucose 115 H 141 H Lactic Acid Calcium 7.5 L Phosphorus Magnesium Direct Bilirubin Alkaline Phosphatase Troponin T NT-Pro-B Natriuret Pep Total Protein Albumin HDL Cholesterol Urine pH Urine WBC (Auto) Urine Creatinine Crossmatch 06/05/20 06/05/20 06/05/20 07:43 10:42 11:35 WBC 20.4 H RBC 3.08 L Hgb 7.6 L Hct 23.5 L MCV 76 L MCH 25 L RDW 26.1 H Plt Count Lymph % (Auto) Greene % (Auto) Greene # (Auto) Seg Neutrophils % Seg Neuts % (Manual) 82.0 H Lymphocytes % (Manual) 9.0 L Monocytes % (Manual) Eosinophils % (Manual) Seg Neutrophils # Seg Neutrophils # Man 16.7 H Lymphocytes # (Manual) Monocytes # (Manual) 1.0 H Eosinophils # (Manual) Basophils # (Manual) 67.7 H PT INR APTT Sodium Potassium Chloride Carbon Dioxide BUN 8 L Creatinine 0.5 L Glucose POC Glucose 131 H Lactic Acid Calcium 7.2 L Phosphorus Magnesium Direct Bilirubin Alkaline Phosphatase Troponin T NT-Pro-B Natriuret Pep Total Protein Albumin HDL Cholesterol Urine pH Urine WBC (Auto) Urine Creatinine Crossmatch 06/05/20 06/06/20 06/06/20 16:29 12:42 22:45 WBC 13.9 H RBC 2.61 L Hgb 6.7 L 6.8 L Hct 19.8 L* 21.0 L MCV 76 L MCH 26 L RDW 25.8 H Plt Count Lymph % (Auto) Greene % (Auto) Greene # (Auto) Seg Neutrophils % Seg Neuts % (Manual) Lymphocytes % (Manual) Monocytes % (Manual) Eosinophils % (Manual) Seg Neutrophils # Seg Neutrophils # Man Lymphocytes # (Manual) Monocytes # (Manual) Eosinophils # (Manual) Basophils # (Manual) PT INR APTT Sodium Potassium Chloride Carbon Dioxide BUN Creatinine Glucose POC Glucose 118 H Lactic Acid Calcium Phosphorus Magnesium Direct Bilirubin Alkaline Phosphatase Troponin T NT-Pro-B Natriuret Pep Total Protein Albumin HDL Cholesterol Urine pH Urine WBC (Auto) Urine Creatinine Crossmatch 06/07/20 06/07/20 06/07/20 05:19 06:48 16:00 WBC RBC Hgb 6.4 L 8.7 L Hct 19.5 L* 25.5 L D MCV MCH RDW Plt Count Lymph % (Auto) Greene % (Auto) Greene # (Auto) Seg Neutrophils % Seg Neuts % (Manual) Lymphocytes % (Manual) Monocytes % (Manual) Eosinophils % (Manual) Seg Neutrophils # Seg Neutrophils # Man Lymphocytes # (Manual) Monocytes # (Manual) Eosinophils # (Manual) Basophils # (Manual) PT INR APTT Sodium Potassium Chloride Carbon Dioxide BUN Creatinine Glucose POC Glucose Lactic Acid Calcium Phosphorus Magnesium Direct Bilirubin Alkaline Phosphatase Troponin T NT-Pro-B Natriuret Pep Total Protein Albumin HDL Cholesterol Urine pH Urine WBC (Auto) Urine Creatinine Crossmatch See Detail 06/07/20 06/08/20 06/08/20 22:50 05:34 05:34 WBC 13.6 H RBC 3.55 L Hgb 9.5 L 9.5 L Hct 29.1 L 28.5 L MCV 80 L MCH 27 L RDW 22.4 H Plt Count Lymph % (Auto) Greene % (Auto) Greene # (Auto) Seg Neutrophils % Seg Neuts % (Manual) 93.0 H Lymphocytes % (Manual) 3.0 L Monocytes % (Manual) Eosinophils % (Manual) Seg Neutrophils # Seg Neutrophils # Man 12.6 H Lymphocytes # (Manual) 0.4 L Monocytes # (Manual) Eosinophils # (Manual) Basophils # (Manual) PT INR APTT Sodium Potassium 3.4 L Chloride Carbon Dioxide BUN 8 L Creatinine 0.5 L Glucose POC Glucose Lactic Acid Calcium 7.3 L Phosphorus Magnesium Direct Bilirubin Alkaline Phosphatase Troponin T NT-Pro-B Natriuret Pep Total Protein Albumin HDL Cholesterol Urine pH Urine WBC (Auto) Urine Creatinine Crossmatch 06/08/20 06/09/20 06/10/20 12:05 12:22 05:12 WBC RBC 3.19 L Hgb 8.7 L Hct 25.6 L MCV 80 L MCH 27 L RDW 22.7 H Plt Count Lymph % (Auto) Greene % (Auto) 10.4 H Greene # (Auto) Seg Neutrophils % Seg Neuts % (Manual) Lymphocytes % (Manual) Monocytes % (Manual) Eosinophils % (Manual) Seg Neutrophils # Seg Neutrophils # Man Lymphocytes # (Manual) Monocytes # (Manual) Eosinophils # (Manual) Basophils # (Manual) PT INR APTT Sodium Potassium Chloride Carbon Dioxide BUN Creatinine Glucose POC Glucose 121 H 118 H Lactic Acid Calcium Phosphorus Magnesium Direct Bilirubin Alkaline Phosphatase Troponin T NT-Pro-B Natriuret Pep Total Protein Albumin HDL Cholesterol Urine pH Urine WBC (Auto) Urine Creatinine Crossmatch 06/10/20 06/10/20 06/10/20 05:12 11:52 22:01 WBC RBC Hgb Hct MCV MCH RDW Plt Count Lymph % (Auto) Greene % (Auto) Greene # (Auto) Seg Neutrophils % Seg Neuts % (Manual) Lymphocytes % (Manual) Monocytes % (Manual) Eosinophils % (Manual) Seg Neutrophils # Seg Neutrophils # Man Lymphocytes # (Manual) Monocytes # (Manual) Eosinophils # (Manual) Basophils # (Manual) PT INR APTT Sodium Potassium 3.3 L Chloride Carbon Dioxide 33 H BUN 7 L Creatinine 0.4 L Glucose POC Glucose 109 H 68 L Lactic Acid Calcium 7.1 L Phosphorus Magnesium Direct Bilirubin Alkaline Phosphatase Troponin T NT-Pro-B Natriuret Pep Total Protein Albumin HDL Cholesterol Urine pH Urine WBC (Auto) Urine Creatinine Crossmatch 06/10/20 06/11/20 06/11/20 23:15 06:16 11:12 WBC RBC Hgb 10.0 L Hct 30.4 L MCV 81 L MCH 27 L RDW 22.8 H Plt Count Lymph % (Auto) Greene % (Auto) Greene # (Auto) Seg Neutrophils % Seg Neuts % (Manual) Lymphocytes % (Manual) Monocytes % (Manual) Eosinophils % (Manual) Seg Neutrophils # Seg Neutrophils # Man Lymphocytes # (Manual) Monocytes # (Manual) Eosinophils # (Manual) Basophils # (Manual) PT INR APTT Sodium Potassium Chloride Carbon Dioxide BUN Creatinine Glucose POC Glucose 112 H 120 H Lactic Acid Calcium Phosphorus Magnesium Direct Bilirubin Alkaline Phosphatase Troponin T NT-Pro-B Natriuret Pep Total Protein Albumin HDL Cholesterol Urine pH Urine WBC (Auto) Urine Creatinine Crossmatch Allied health notes reviewed: nursing
[2020-06-12 06:04] LABS: Hematocrit 29.3 % (35.5-45.6); Hemoglobin 9.6 gm/dl (11.8-15.2); Mean Corpuscular HGB Conc 33 % (32-34); Mean Corpuscular Volume 81 fl (84-94); Platelet Count 394 K/mm3 (140-440); Red Blood Count 3.63 M/mm3 (3.65-5.03)
[2020-06-12 06:07] LABS: Red Cell Distribution Width 23.4 % (13.2-15.2)
[2020-06-12 06:24] LABS: Blood Urea Nitrogen 7 mg/dL (9-20); Calcium 7.3 mg/dL (8.4-10.2); Hemolysis Index 2
[2020-06-12 06:25] LABS: BUN/Creatinine Ratio 14
[2020-06-12] MEDS: POTASSIUM CHLORIDE ER 20 MEQ TAB PO SCH (10:44)
[2020-06-12] MEDS: ASPIRIN 81 MG TAB CHEW PO SCH (10:44)
[2020-06-12] MEDS: PANTOPRAZOLE 40 MG TAB PO SCH (10:45)
[2020-06-12] MEDS: DOCUSATE SODIUM 100 MG/10 ML ORAL LIQD PO SCH ×2 (10:45→21:11)
--- NOTE | 2020-06-12 11:21 | Progress Note ---
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 Patient was found to have suprapubic tenderness and temp of 101.4 F. In the ED patient was found to be hypotensive with a systolic blood pressure in the 80s and tachycardic. Labs significant for wbc 18, BUN 36, Creat 3.8 and Lactate 3.7. Patient was found to have UTI, septic shock, EBENEZER and toxic metabolic encephalopathy. Patient was admitted to ICU and initiated on se psis protocol and initiated on IV pressor. --Sepsis with shock, status post empiric antibiotic and off pressors --UTI, treated with antibiotics --EBENEZER, vasomotor nephropathy and ATN in the setting of septic shock. CT abdomen negative for hydro --toxic metabolic encephalopathy, CT head without any acute process --Anemia, likely due to chronic disease --Cholecystitis, inflammation seen on CT, cholecystectomy tube in place on admission. Need further outpatient follow-up with general surgery --Hypokalemia, repleted --Hypophosphatemia, repleted --Hyponatremia, likely due to dehydration resolved --Elevated, troponin, likely NSTEMI type II in the setting of sepsis and EBENEZER. 2D echocardiogram with preserved EF --Urinary retention, likely due to BPH, continue Brewster catheter --h/o prior CVA, cont aspirin and statin for now. --Full code --Poor prognosis Hospital course: 05/23/2020 -Septic shock likely due to UTI, patient is on IV cefepime, IV fluid and pressor support. Critical care consulted -Acute renal failure, improved with IV fluids, nephrology consulted 05/24/2020 -Admitted for septic shock due to UTI, patient is on IV cefepime, IV fluids, pressor support, ID consulted. -Acute renal failure IV fluids and nephrology consult -Patient is saturating 100% on room air -Patient was alert 05/25/2020 -Patient is on IV cefepime and ID increase the dose. -Acute renal failure is improving -Patient had history of cholecystostomy tube placement and was seen by general surgery and order imaging study. -Patient is still on pressors for low blood pressure 05/27/2020 -Patient was admitted for septic shock and he is doing well. Continue with cefepime while he is here and can be discharged with po Levaquin to finish a total of 7 days course of antibiotics. He was evaluated by general surgery and imaging was done and no further work-up is needed. GI also saw the patient. Patient is stable for discharge Case management is working for placement. Patient's family does not want him to go back to the facility where he came from. 05/28/2020 patient is alert today able to make needs known at this particular time. Recently admitted for septic shock. Currently treated with cefepime while in house. Awaiting placement will change to Levaquin to complete 6 more days of antibiotics. Stable for discharge awaiting placement Case management. 05/29/2020. Patient doing well able to make all needs known no new concerns. Patient wants to know that he was doing well. No more in shock. Awaiting placement. Patient tolerated change to Levaquin well. Patient is not eating solid foods that well will change to pured diet and see how effective that may be. 05/30/2020. Patient resting comfortably no acute distress. Hospital course uncomplicated over p.m. Patient doing better with change in the consistency of diet. Currently awaiting placement. 05/31/2020. Etiology of acute kidney injury secondary to vasomotor nephropathy/ATN in the setting of sepsis/septic shock. CT abdomen negative for hydronephrosis. ID recommended cefepime 2 g every 8 hours with completion total of 7 days. Case management working on placement. 06/01/2020. Continue IV antibiotics per ID recommendations. Case management still working on placement. 06/02/20: Negative Covid test. Patient planned discharged to [facility] in stable condition with outpatient follow-up. Placement waiting on financial agreement with the longterm. aviation program manager and family in agreement. 06/03: Discharge pending on placement 06/04: Pending placement 06/05: Pending placement. c/o abdominal pain today. noted to have high white count today, patient was treated with cefepime's for 7 days per ID recommendation. Will resume cefepime and reconsult GS, Monitor CBC. 06/06: repeat CT abdomen suggestive of possible cystitis - will treat with 3 days of rocephin and stop cefepime, d/c brewster. add stool softner. No further surgical intervention per GS. pending placement 06/07: H/H dropped, transfuse one unit PRBC - ordered stool for occult blood 06/08: placed back brewster today as patient developed urinary retention. h/h stable after transfusion. pending placement. d/c plavix and heparin, cont aspirin only for anemia. 06/09: h/h stable. discussed with daughter in details about his overall clinical condition. I recommended possible hospice care for the patient considering his underlying chronic conditions - CVA with bedbound state, chronic cholecystitis, recurrent UTI, chronic physical debility, chronic anemia. daughter is in agreement - will cont to follow. She will discuss with her brother about code status and will update us tomorrow. 06/10: Continue supportive care, awaiting placement. hospice and snf placement going. 06/11 no acute events overnight, lab results reviewed, repeat BMP in a.m., awaiting placement, pulmonary note reviewed Objectiveqqqqqqqqqqqqq Subjective Date of service: 06/12/20 Principal diagnosis: Septic shock; Metabolic Acidosis; Ac, Toxic metabolic encephalopathy; EBENEZER Interval history: 05/23/2020 -Septic shock likely due to UTI, patient is on IV cefepime, IV fluid and pressor support. Critical care consulted -Acute renal failure, improved with IV fluids, nephrology consulted 05/24/2020 -Admitted for septic shock due to UTI, patient is on IV cefepime, IV fluids, pressor support, ID consulted. -Acute renal failure IV fluids and nephrology consult -Patient is saturating 100% on room air -Patient was alert 05/25/2020 -Patient is on IV cefepime and ID increase the dose. -Acute renal failure is improving -Patient had history of cholecystostomy tube placement and was seen by general surgery and order imaging study. -Patient is still on pressors for low blood pressure 05/27/2020 -Patient was admitted for septic shock and he is doing well. Continue with cefepime while he is here and can be discharged with po Levaquin to finish a total of 7 days course of antibiotics. He was evaluated by general surgery and imaging was done and no further work-up is needed. GI also saw the patient. Patient is stable for discharge Case management is working for placement. Patient's family does not want him to go back to the facility where he came from. 05/28/2020 patient is alert today able to make needs known at this particular time. Recently admitted for septic shock. Currently treated with cefepime while in house. Awaiting placement will change to Levaquin to complete 6 more days of antibiotics. Stable for discharge awaiting placement Case management. 05/29/2020. Patient doing well able to make all needs known no new concerns. Patient wants to know that he was doing well. No more in shock. Awaiting placement. Patient tolerated change to Levaquin well. Patient is not eating solid foods that well will change to pured diet and see how effective that may be. 05/30/2020. Patient resting comfortably no acute distress. Hospital course uncomplicated over p.m. Patient doing better with change in the consistency of diet. Currently awaiting placement. Objective - Constitutional Vitals: Vital Signs - 12hr 06/12/20 06/12/20 06/12/20 00:07 04:49 07:53 Temperature 98.0 F 97.9 F 97.8 F Pulse Rate 84 86 87 Respiratory 18 20 18 Rate Blood Pressure 132/63 122/61 145/75 O2 Sat by Pulse 98 97 100 Oximetry General appearance: Present: no acute distress, well-nourished - EENT Eyes: PERRL, EOM intact ENT: hearing intact, clear oral mucosa Ears: bilateral: normal - Neck Neck: supple, normal ROM - Respiratory Respiratory effort: normal Respiratory: bilateral: CTA - Breasts Breasts: normal - Cardiovascular Rhythm: regular Heart Sounds: Present: S1 & S2. Absent: gallop, rub Extremities: pulses intact, No edema, normal color, Full ROM - Gastrointestinal General gastrointestinal: Present: soft, non-tender, non-distended, normal bowel sounds - Genitourinary Male genitourinary: normal - Integumentary Integumentary: clear, warm, dry - Musculoskeletal Musculoskeletal: 1, strength equal bilaterally - Neurologic Neurologic: moves all extremities - Psychiatric Psychiatric: memory intact, appropriate mood/affect, intact judgment & insight - Labs CBC & Chem 7: 06/12/20 05:30 06/12/20 05:30 Labs: Abnormal lab results 06/11/20 06/11/20 06/12/20 Range/Units 11:12 16:19 05:30 RBC 3.63 L (3.65-5.03) M/mm3 Hgb 9.6 L (11.8-15.2) gm/dl Hct 29.3 L (35.5-45.6) % MCV 81 L (84-94) fl MCH 27 L (28-32) pg RDW 23.4 H (13.2-15.2) % Carbon Dioxide (22-30) mmol/L BUN (9-20) mg/dL Creatinine (0.8-1.3) mg/dL POC Glucose 120 H 68 L (70-105) mg/dL Calcium (8.4-10.2) mg/dL 06/12/20 Range/Units 05:30 RBC (3.65-5.03) M/mm3 Hgb (11.8-15.2) gm/dl Hct (35.5-45.6) % MCV (84-94) fl MCH (28-32) pg RDW (13.2-15.2) % Carbon Dioxide 31 H (22-30) mmol/L BUN 7 L (9-20) mg/dL Creatinine 0.5 L (0.8-1.3) mg/dL POC Glucose (70-105) mg/dL Calcium 7.3 L (8.4-10.2) mg/dL HEART Score - HEART Score Troponin: Troponin T 0.271 ng/mL (0.00-0.029) H* 05/22/20 09:10
--- NOTE | 2020-06-12 14:27 | Progress Note ---
Assessment and Plan Septic shock Metabolic Acidosis Acute Toxic metabolic encephalopathy Acute renal failure UTI (urinary tract infection) Acute Cystitis - increase PT/OT / increase ambulation as tolerated - no new issues today, continue care as below; - completed antiinfective's per ID (cefepime 2 gms IV q8h X 7 days) - outpatient surgery f/up - continue fall precautions - continue accuchecks with glycemic control per SSI for target blood glucose of < 180 mg/dL; avoid hypoglycemia - continue to wean supplemental oxygen for target O2 sat's > 92% acutely - aspiration precautions - prn bronchodilators with pulmonary hygiene per RT - avoid nephrotoxins, renally dose all medications - avoid benzodiazepine's, reduce the possibility of delirium - prn analgesia per pain score - Maintenance of sleep-wake cycle, avoid delirium - aspiration precautions - G.I. & VTE prophylaxis - PT/OT/ROM exercises - mobility protocols for pressure ulcer prophylaxis - Monitor hemodynamics closely - continue other care per attending / other consultants - discharge planning ongoing concurrently .... Re-evaluate in am & prn Subjective Date of service: 06/12/20 Principal diagnosis: Septic shock; Metabolic Acidosis; Ac, Toxic metabolic encephalopathy; EBENEZER Interval history: Patient is seen today for: Septic shock; Metabolic Acidosis; Acute Toxic metabolic encephalopathy; Acute renal failure; UTI (urinary tract infection) Seen and examined at bedside; 24hour events reviewed; nursing and respiratory care staff consulted; no adverse overnight events reported to me; resting peacefully in bed; Objective Vital Signs - 12hr 06/12/20 06/12/20 06/12/20 04:49 07:53 12:00 Temperature 97.9 F 97.8 F Pulse Rate 86 87 82 Respiratory 20 18 Rate Blood Pressure 122/61 145/75 O2 Sat by Pulse 97 100 Oximetry Constitutional: no acute distress, other (elderly looking male with normal respiratory effort at rest) Eyes: non-icteric ENT: oropharynx moist Neck: supple, no lymphadenopathy, no JVD Effort: normal Ascultation: Bilateral: clear, diminished breath sounds Percussion: Bilateral: not dull Cardiovascular: regular rate and rhythm Gastrointestinal: normoactive bowel sounds, soft, tender (mild, LLQ, RUQ), non- distended (protuberant'), other (RUQ J-P drain) Integumentary: normal Extremities: no cyanosis, no edema, pink and warm, pulses normal Neurologic: non-focal exam (grossly), pupils equal and round, CN II-XII normal, other (slow to respond) Psychiatric: other (flat affect) CBC and BMP: 06/12/20 05:30 06/12/20 05:30 ABG, PT/INR, D-dimer: PT/INR, D-dimer PT 15.5 Sec. (12.2-14.9) H 05/22/20 09:10 INR 1.25 (0.87-1.13) H 05/22/20 09:10 Abnormal lab findings: Abnormal Labs 05/22/20 05/22/20 05/22/20 09:10 09:10 09:10 WBC 17.9 H RBC 3.60 L Hgb 8.7 L Hct 26.8 L MCV 74 L MCH 24 L RDW 24.0 H Plt Count 621 H Lymph % (Auto) Iron % (Auto) Iron # (Auto) Seg Neutrophils % Seg Neuts % (Manual) 85.0 H Lymphocytes % (Manual) 5.0 L Monocytes % (Manual) 8.0 H Eosinophils % (Manual) Seg Neutrophils # Seg Neutrophils # Man 15.2 H Lymphocytes # (Manual) 0.9 L Monocytes # (Manual) 1.4 H Eosinophils # (Manual) Basophils # (Manual) PT INR APTT Sodium Potassium Chloride Carbon Dioxide BUN Creatinine Glucose POC Glucose Lactic Acid 3.30 H* Calcium Phosphorus Magnesium Direct Bilirubin Alkaline Phosphatase Troponin T 0.271 H* NT-Pro-B Natriuret Pep Total Protein Albumin HDL Cholesterol 39 L Urine pH Urine WBC (Auto) Urine Creatinine Crossmatch 05/22/20 05/22/20 05/22/20 09:10 09:10 09:32 WBC RBC Hgb Hct MCV MCH RDW Plt Count Lymph % (Auto) Iron % (Auto) Iron # (Auto) Seg Neutrophils % Seg Neuts % (Manual) Lymphocytes % (Manual) Monocytes % (Manual) Eosinophils % (Manual) Seg Neutrophils # Seg Neutrophils # Man Lymphocytes # (Manual) Monocytes # (Manual) Eosinophils # (Manual) Basophils # (Manual) PT 15.5 H INR 1.25 H APTT 47.6 H Sodium 136 L Potassium Chloride 97.2 L Carbon Dioxide BUN 36 H Creatinine 3.8 H Glucose 133 H POC Glucose Lactic Acid Calcium 7.8 L Phosphorus Magnesium Direct Bilirubin 0.3 H Alkaline Phosphatase 248 H Troponin T NT-Pro-B Natriuret Pep 1448 H Total Protein Albumin 2.8 L HDL Cholesterol Urine pH 8.0 H Urine WBC (Auto) > 182.0 H Urine Creatinine Crossmatch 05/22/20 05/22/20 05/22/20 09:49 11:42 19:48 WBC RBC Hgb Hct MCV MCH RDW Plt Count Lymph % (Auto) Iron % (Auto) Iron # (Auto) Seg Neutrophils % Seg Neuts % (Manual) Lymphocytes % (Manual) Monocytes % (Manual) Eosinophils % (Manual) Seg Neutrophils # Seg Neutrophils # Man Lymphocytes # (Manual) Monocytes # (Manual) Eosinophils # (Manual) Basophils # (Manual) PT INR APTT Sodium Potassium Chloride Carbon Dioxide BUN Creatinine Glucose POC Glucose Lactic Acid 3.70 H* 2.10 H* Calcium Phosphorus Magnesium Direct Bilirubin Alkaline Phosphatase Troponin T NT-Pro-B Natriuret Pep Total Protein Albumin HDL Cholesterol Urine pH Urine WBC (Auto) Urine Creatinine 48.1 H Crossmatch 05/22/20 05/23/20 05/23/20 23:27 05:05 05:05 WBC 20.3 H RBC 2.73 L Hgb 6.6 L Hct 20.8 L D MCV 76 L MCH 24 L RDW 23.9 H Plt Count 546 H Lymph % (Auto) 11.5 L Iron % (Auto) Iron # (Auto) 1.2 H Seg Neutrophils % 81.5 H Seg Neuts % (Manual) Lymphocytes % (Manual) Monocytes % (Manual) Eosinophils % (Manual) Seg Neutrophils # 16.5 H Seg Neutrophils # Man Lymphocytes # (Manual) Monocytes # (Manual) Eosinophils # (Manual) Basophils # (Manual) PT INR APTT Sodium Potassium Chloride 112.5 H Carbon Dioxide 20 L BUN 26 H Creatinine 1.8 H D Glucose 135 H POC Glucose 124 H Lactic Acid Calcium 6.8 L Phosphorus Magnesium Direct Bilirubin Alkaline Phosphatase Troponin T NT-Pro-B Natriuret Pep Total Protein Albumin HDL Cholesterol Urine pH Urine WBC (Auto) Urine Creatinine Crossmatch 05/23/20 05/23/20 05/23/20 05:38 06:10 11:33 WBC RBC Hgb Hct MCV MCH RDW Plt Count Lymph % (Auto) Iron % (Auto) Iron # (Auto) Seg Neutrophils % Seg Neuts % (Manual) Lymphocytes % (Manual) Monocytes % (Manual) Eosinophils % (Manual) Seg Neutrophils # Seg Neutrophils # Man Lymphocytes # (Manual) Monocytes # (Manual) Eosinophils # (Manual) Basophils # (Manual) PT INR APTT Sodium Potassium Chloride Carbon Dioxide BUN Creatinine Glucose POC Glucose 112 H 128 H Lactic Acid Calcium Phosphorus Magnesium Direct Bilirubin Alkaline Phosphatase Troponin T NT-Pro-B Natriuret Pep Total Protein Albumin HDL Cholesterol Urine pH Urine WBC (Auto) Urine Creatinine Crossmatch See Detail 05/23/20 05/23/20 05/23/20 14:45 17:49 23:34 WBC RBC Hgb 8.4 L Hct 26.4 L MCV MCH RDW Plt Count Lymph % (Auto) Iron % (Auto) Iron # (Auto) Seg Neutrophils % Seg Neuts % (Manual) Lymphocytes % (Manual) Monocytes % (Manual) Eosinophils % (Manual) Seg Neutrophils # Seg Neutrophils # Man Lymphocytes # (Manual) Monocytes # (Manual) Eosinophils # (Manual) Basophils # (Manual) PT INR APTT Sodium Potassium Chloride Carbon Dioxide BUN Creatinine Glucose POC Glucose 112 H 116 H Lactic Acid Calcium Phosphorus Magnesium Direct Bilirubin Alkaline Phosphatase Troponin T NT-Pro-B Natriuret Pep Total Protein Albumin HDL Cholesterol Urine pH Urine WBC (Auto) Urine Creatinine Crossmatch 05/24/20 05/24/20 05/25/20 05:45 05:45 05:00 WBC 18.4 H RBC 3.35 L Hgb 8.6 L Hct 26.5 L MCV 79 L MCH 26 L RDW 23.9 H Plt Count Lymph % (Auto) Iron % (Auto) Iron # (Auto) Seg Neutrophils % Seg Neuts % (Manual) 81.0 H Lymphocytes % (Manual) 12.0 L Monocytes % (Manual) Eosinophils % (Manual) Seg Neutrophils # Seg Neutrophils # Man 14.9 H Lymphocytes # (Manual) Monocytes # (Manual) 1.3 H Eosinophils # (Manual) Basophils # (Manual) PT INR APTT Sodium Potassium 3.1 L Chloride 109.5 H Carbon Dioxide BUN Creatinine Glucose 111 H POC Glucose Lactic Acid Calcium 6.8 L 7.2 L Phosphorus Magnesium 1.00 L Direct Bilirubin Alkaline Phosphatase Troponin T NT-Pro-B Natriuret Pep Total Protein Albumin HDL Cholesterol Urine pH Urine WBC (Auto) Urine Creatinine Crossmatch 05/25/20 05/25/20 05/25/20 09:34 11:31 18:25 WBC 12.7 H RBC 3.14 L Hgb 8.0 L Hct 24.6 L MCV 78 L MCH 25 L RDW 25.0 H Plt Count Lymph % (Auto) Iron % (Auto) Iron # (Auto) Seg Neutrophils % Seg Neuts % (Manual) 94.0 H Lymphocytes % (Manual) 3.0 L Monocytes % (Manual) Eosinophils % (Manual) Seg Neutrophils # Seg Neutrophils # Man 11.9 H Lymphocytes # (Manual) 0.4 L Monocytes # (Manual) Eosinophils # (Manual) Basophils # (Manual) PT INR APTT Sodium Potassium Chloride Carbon Dioxide BUN Creatinine Glucose POC Glucose 63 L 57 L Lactic Acid Calcium Phosphorus Magnesium Direct Bilirubin Alkaline Phosphatase Troponin T NT-Pro-B Natriuret Pep Total Protein Albumin HDL Cholesterol Urine pH Urine WBC (Auto) Urine Creatinine Crossmatch 05/25/20 05/26/20 05/26/20 23:44 04:16 04:16 WBC RBC 3.07 L Hgb 8.0 L Hct 24.2 L MCV 79 L MCH 26 L RDW 24.8 H Plt Count Lymph % (Auto) Iron % (Auto) Iron # (Auto) Seg Neutrophils % Seg Neuts % (Manual) 85.0 H Lymphocytes % (Manual) 8.0 L Monocytes % (Manual) Eosinophils % (Manual) 5.0 H Seg Neutrophils # Seg Neutrophils # Man 7.9 H Lymphocytes # (Manual) 0.7 L Monocytes # (Manual) Eosinophils # (Manual) 0.5 H Basophils # (Manual) PT INR APTT Sodium Potassium 3.4 L Chloride 108.6 H Carbon Dioxide BUN Creatinine 0.7 L Glucose 101 H POC Glucose 52 L Lactic Acid Calcium 7.7 L Phosphorus Magnesium Direct Bilirubin Alkaline Phosphatase Troponin T NT-Pro-B Natriuret Pep Total Protein Albumin HDL Cholesterol Urine pH Urine WBC (Auto) Urine Creatinine Crossmatch 05/26/20 05/27/20 05/27/20 12:41 00:45 06:23 WBC RBC Hgb Hct MCV MCH RDW Plt Count Lymph % (Auto) Iron % (Auto) Iron # (Auto) Seg Neutrophils % Seg Neuts % (Manual) Lymphocytes % (Manual) Monocytes % (Manual) Eosinophils % (Manual) Seg Neutrophils # Seg Neutrophils # Man Lymphocytes # (Manual) Monocytes # (Manual) Eosinophils # (Manual) Basophils # (Manual) PT INR APTT Sodium 135 L Potassium 3.4 L Chloride Carbon Dioxide BUN Creatinine Glucose POC Glucose 64 L Lactic Acid Calcium 7.4 L Phosphorus Magnesium Direct Bilirubin Alkaline Phosphatase 566 H Troponin T NT-Pro-B Natriuret Pep Total Protein 5.3 L D Albumin 1.9 L HDL Cholesterol Urine pH Urine WBC (Auto) Urine Creatinine Crossmatch 05/28/20 05/29/20 05/29/20 04:35 17:01 18:54 WBC RBC Hgb Hct MCV MCH RDW Plt Count Lymph % (Auto) Iron % (Auto) Iron # (Auto) Seg Neutrophils % Seg Neuts % (Manual) Lymphocytes % (Manual) Monocytes % (Manual) Eosinophils % (Manual) Seg Neutrophils # Seg Neutrophils # Man Lymphocytes # (Manual) Monocytes # (Manual) Eosinophils # (Manual) Basophils # (Manual) PT INR APTT Sodium Potassium Chloride Carbon Dioxide BUN Creatinine 0.7 L Glucose POC Glucose 57 L 135 H Lactic Acid Calcium 7.7 L Phosphorus Magnesium Direct Bilirubin Alkaline Phosphatase Troponin T NT-Pro-B Natriuret Pep Total Protein Albumin HDL Cholesterol Urine pH Urine WBC (Auto) Urine Creatinine Crossmatch 05/30/20 05/30/20 05/30/20 05:42 11:30 23:28 WBC RBC Hgb Hct MCV MCH RDW Plt Count Lymph % (Auto) Iron % (Auto) Iron # (Auto) Seg Neutrophils % Seg Neuts % (Manual) Lymphocytes % (Manual) Monocytes % (Manual) Eosinophils % (Manual) Seg Neutrophils # Seg Neutrophils # Man Lymphocytes # (Manual) Monocytes # (Manual) Eosinophils # (Manual) Basophils # (Manual) PT INR APTT Sodium Potassium 3.4 L Chloride Carbon Dioxide BUN 6 L Creatinine 0.6 L Glucose 105 H POC Glucose 51 L 55 L Lactic Acid Calcium 7.5 L Phosphorus 1.80 L Magnesium Direct Bilirubin Alkaline Phosphatase Troponin T NT-Pro-B Natriuret Pep Total Protein Albumin HDL Cholesterol Urine pH Urine WBC (Auto) Urine Creatinine Crossmatch 05/31/20 05/31/20 06/04/20 05:37 11:49 18:35 WBC RBC Hgb Hct MCV MCH RDW Plt Count Lymph % (Auto) Iron % (Auto) Iron # (Auto) Seg Neutrophils % Seg Neuts % (Manual) Lymphocytes % (Manual) Monocytes % (Manual) Eosinophils % (Manual) Seg Neutrophils # Seg Neutrophils # Man Lymphocytes # (Manual) Monocytes # (Manual) Eosinophils # (Manual) Basophils # (Manual) PT INR APTT Sodium 136 L Potassium Chloride Carbon Dioxide BUN 6 L Creatinine 0.6 L Glucose POC Glucose 115 H 141 H Lactic Acid Calcium 7.5 L Phosphorus Magnesium Direct Bilirubin Alkaline Phosphatase Troponin T NT-Pro-B Natriuret Pep Total Protein Albumin HDL Cholesterol Urine pH Urine WBC (Auto) Urine Creatinine Crossmatch 06/05/20 06/05/20 06/05/20 07:43 10:42 11:35 WBC 20.4 H RBC 3.08 L Hgb 7.6 L Hct 23.5 L MCV 76 L MCH 25 L RDW 26.1 H Plt Count Lymph % (Auto) Iron % (Auto) Iron # (Auto) Seg Neutrophils % Seg Neuts % (Manual) 82.0 H Lymphocytes % (Manual) 9.0 L Monocytes % (Manual) Eosinophils % (Manual) Seg Neutrophils # Seg Neutrophils # Man 16.7 H Lymphocytes # (Manual) Monocytes # (Manual) 1.0 H Eosinophils # (Manual) Basophils # (Manual) 67.7 H PT INR APTT Sodium Potassium Chloride Carbon Dioxide BUN 8 L Creatinine 0.5 L Glucose POC Glucose 131 H Lactic Acid Calcium 7.2 L Phosphorus Magnesium Direct Bilirubin Alkaline Phosphatase Troponin T NT-Pro-B Natriuret Pep Total Protein Albumin HDL Cholesterol Urine pH Urine WBC (Auto) Urine Creatinine Crossmatch 06/05/20 06/06/20 06/06/20 16:29 12:42 22:45 WBC 13.9 H RBC 2.61 L Hgb 6.7 L 6.8 L Hct 19.8 L* 21.0 L MCV 76 L MCH 26 L RDW 25.8 H Plt Count Lymph % (Auto) Iron % (Auto) Iron # (Auto) Seg Neutrophils % Seg Neuts % (Manual) Lymphocytes % (Manual) Monocytes % (Manual) Eosinophils % (Manual) Seg Neutrophils # Seg Neutrophils # Man Lymphocytes # (Manual) Monocytes # (Manual) Eosinophils # (Manual) Basophils # (Manual) PT INR APTT Sodium Potassium Chloride Carbon Dioxide BUN Creatinine Glucose POC Glucose 118 H Lactic Acid Calcium Phosphorus Magnesium Direct Bilirubin Alkaline Phosphatase Troponin T NT-Pro-B Natriuret Pep Total Protein Albumin HDL Cholesterol Urine pH Urine WBC (Auto) Urine Creatinine Crossmatch 06/07/20 06/07/20 06/07/20 05:19 06:48 16:00 WBC RBC Hgb 6.4 L 8.7 L Hct 19.5 L* 25.5 L D MCV MCH RDW Plt Count Lymph % (Auto) Iron % (Auto) Iron # (Auto) Seg Neutrophils % Seg Neuts % (Manual) Lymphocytes % (Manual) Monocytes % (Manual) Eosinophils % (Manual) Seg Neutrophils # Seg Neutrophils # Man Lymphocytes # (Manual) Monocytes # (Manual) Eosinophils # (Manual) Basophils # (Manual) PT INR APTT Sodium Potassium Chloride Carbon Dioxide BUN Creatinine Glucose POC Glucose Lactic Acid Calcium Phosphorus Magnesium Direct Bilirubin Alkaline Phosphatase Troponin T NT-Pro-B Natriuret Pep Total Protein Albumin HDL Cholesterol Urine pH Urine WBC (Auto) Urine Creatinine Crossmatch See Detail 06/07/20 06/08/20 06/08/20 22:50 05:34 05:34 WBC 13.6 H RBC 3.55 L Hgb 9.5 L 9.5 L Hct 29.1 L 28.5 L MCV 80 L MCH 27 L RDW 22.4 H Plt Count Lymph % (Auto) Iron % (Auto) Iron # (Auto) Seg Neutrophils % Seg Neuts % (Manual) 93.0 H Lymphocytes % (Manual) 3.0 L Monocytes % (Manual) Eosinophils % (Manual) Seg Neutrophils # Seg Neutrophils # Man 12.6 H Lymphocytes # (Manual) 0.4 L Monocytes # (Manual) Eosinophils # (Manual) Basophils # (Manual) PT INR APTT Sodium Potassium 3.4 L Chloride Carbon Dioxide BUN 8 L Creatinine 0.5 L Glucose POC Glucose Lactic Acid Calcium 7.3 L Phosphorus Magnesium Direct Bilirubin Alkaline Phosphatase Troponin T NT-Pro-B Natriuret Pep Total Protein Albumin HDL Cholesterol Urine pH Urine WBC (Auto) Urine Creatinine Crossmatch 06/08/20 06/09/20 06/10/20 12:05 12:22 05:12 WBC RBC 3.19 L Hgb 8.7 L Hct 25.6 L MCV 80 L MCH 27 L RDW 22.7 H Plt Count Lymph % (Auto) Iron % (Auto) 10.4 H Iron # (Auto) Seg Neutrophils % Seg Neuts % (Manual) Lymphocytes % (Manual) Monocytes % (Manual) Eosinophils % (Manual) Seg Neutrophils # Seg Neutrophils # Man Lymphocytes # (Manual) Monocytes # (Manual) Eosinophils # (Manual) Basophils # (Manual) PT INR APTT Sodium Potassium Chloride Carbon Dioxide BUN Creatinine Glucose POC Glucose 121 H 118 H Lactic Acid Calcium Phosphorus Magnesium Direct Bilirubin Alkaline Phosphatase Troponin T NT-Pro-B Natriuret Pep Total Protein Albumin HDL Cholesterol Urine pH Urine WBC (Auto) Urine Creatinine Crossmatch 06/10/20 06/10/20 06/10/20 05:12 11:52 22:01 WBC RBC Hgb Hct MCV MCH RDW Plt Count Lymph % (Auto) Iron % (Auto) Iron # (Auto) Seg Neutrophils % Seg Neuts % (Manual) Lymphocytes % (Manual) Monocytes % (Manual) Eosinophils % (Manual) Seg Neutrophils # Seg Neutrophils # Man Lymphocytes # (Manual) Monocytes # (Manual) Eosinophils # (Manual) Basophils # (Manual) PT INR APTT Sodium Potassium 3.3 L Chloride Carbon Dioxide 33 H BUN 7 L Creatinine 0.4 L Glucose POC Glucose 109 H 68 L Lactic Acid Calcium 7.1 L Phosphorus Magnesium Direct Bilirubin Alkaline Phosphatase Troponin T NT-Pro-B Natriuret Pep Total Protein Albumin HDL Cholesterol Urine pH Urine WBC (Auto) Urine Creatinine Crossmatch 06/10/20 06/11/20 06/11/20 23:15 06:16 11:12 WBC RBC Hgb 10.0 L Hct 30.4 L MCV 81 L MCH 27 L RDW 22.8 H Plt Count Lymph % (Auto) Iron % (Auto) Iron # (Auto) Seg Neutrophils % Seg Neuts % (Manual) Lymphocytes % (Manual) Monocytes % (Manual) Eosinophils % (Manual) Seg Neutrophils # Seg Neutrophils # Man Lymphocytes # (Manual) Monocytes # (Manual) Eosinophils # (Manual) Basophils # (Manual) PT INR APTT Sodium Potassium Chloride Carbon Dioxide BUN Creatinine Glucose POC Glucose 112 H 120 H Lactic Acid Calcium Phosphorus Magnesium Direct Bilirubin Alkaline Phosphatase Troponin T NT-Pro-B Natriuret Pep Total Protein Albumin HDL Cholesterol Urine pH Urine WBC (Auto) Urine Creatinine Crossmatch 06/11/20 06/12/20 06/12/20 16:19 05:30 05:30 WBC RBC 3.63 L Hgb 9.6 L Hct 29.3 L MCV 81 L MCH 27 L RDW 23.4 H Plt Count Lymph % (Auto) Iron % (Auto) Iron # (Auto) Seg Neutrophils % Seg Neuts % (Manual) Lymphocytes % (Manual) Monocytes % (Manual) Eosinophils % (Manual) Seg Neutrophils # Seg Neutrophils # Man Lymphocytes # (Manual) Monocytes # (Manual) Eosinophils # (Manual) Basophils # (Manual) PT INR APTT Sodium Potassium Chloride Carbon Dioxide 31 H BUN 7 L Creatinine 0.5 L Glucose POC Glucose 68 L Lactic Acid Calcium 7.3 L Phosphorus Magnesium Direct Bilirubin Alkaline Phosphatase Troponin T NT-Pro-B Natriuret Pep Total Protein Albumin HDL Cholesterol Urine pH Urine WBC (Auto) Urine Creatinine Crossmatch Allied health notes reviewed: nursing
[2020-06-12] MEDS: ACETAMINOPHEN 325 MG TAB PO PRN (21:11)
[2020-06-13] MEDS ORDERED: diphenhydrAMINE 50 MG/ML VIAL IV PRN (01:50)
--- NOTE | 2020-06-13 08:47 | Progress Note ---
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 Patient was found to have suprapubic tenderness and temp of 101.4 F. In the ED patient was found to be hypotensive with a systolic blood pressure in the 80s and tachycardic. Labs significant for wbc 18, BUN 36, Creat 3.8 and Lactate 3.7. Patient was found to have UTI, septic shock, EBENEZER and toxic metabolic encephalopathy. Patient was admitted to ICU and initiated on se psis protocol and initiated on IV pressor. --Sepsis with shock, status post empiric antibiotic and off pressors --UTI, treated with antibiotics --EBENEZER, vasomotor nephropathy and ATN in the setting of septic shock. CT abdomen negative for hydro --toxic metabolic encephalopathy, CT head without any acute process --Anemia, likely due to chronic disease --Cholecystitis, inflammation seen on CT, cholecystectomy tube in place on admission. Need further outpatient follow-up with general surgery --Hypokalemia, repleted --Hypophosphatemia, repleted --Hyponatremia, likely due to dehydration resolved --Elevated, troponin, likely NSTEMI type II in the setting of sepsis and EBENEZER. 2D echocardiogram with preserved EF --Urinary retention, likely due to BPH, continue Brewster catheter --h/o prior CVA, cont aspirin and statin for now. --Full code --Poor prognosis Hospital course: 05/23/2020 -Septic shock likely due to UTI, patient is on IV cefepime, IV fluid and pressor support. Critical care consulted -Acute renal failure, improved with IV fluids, nephrology consulted 05/24/2020 -Admitted for septic shock due to UTI, patient is on IV cefepime, IV fluids, pressor support, ID consulted. -Acute renal failure IV fluids and nephrology consult -Patient is saturating 100% on room air -Patient was alert 05/25/2020 -Patient is on IV cefepime and ID increase the dose. -Acute renal failure is improving -Patient had history of cholecystostomy tube placement and was seen by general surgery and order imaging study. -Patient is still on pressors for low blood pressure 05/27/2020 -Patient was admitted for septic shock and he is doing well. Continue with cefepime while he is here and can be discharged with po Levaquin to finish a total of 7 days course of antibiotics. He was evaluated by general surgery and imaging was done and no further work-up is needed. GI also saw the patient. Patient is stable for discharge Case management is working for placement. Patient's family does not want him to go back to the facility where he came from. 05/28/2020 patient is alert today able to make needs known at this particular time. Recently admitted for septic shock. Currently treated with cefepime while in house. Awaiting placement will change to Levaquin to complete 6 more days of antibiotics. Stable for discharge awaiting placement Case management. 05/29/2020. Patient doing well able to make all needs known no new concerns. Patient wants to know that he was doing well. No more in shock. Awaiting placement. Patient tolerated change to Levaquin well. Patient is not eating solid foods that well will change to pured diet and see how effective that may be. 05/30/2020. Patient resting comfortably no acute distress. Hospital course uncomplicated over p.m. Patient doing better with change in the consistency of diet. Currently awaiting placement. 05/31/2020. Etiology of acute kidney injury secondary to vasomotor nephropathy/ATN in the setting of sepsis/septic shock. CT abdomen negative for hydronephrosis. ID recommended cefepime 2 g every 8 hours with completion total of 7 days. Case management working on placement. 06/01/2020. Continue IV antibiotics per ID recommendations. Case management still working on placement. 06/02/20: Negative Covid test. Patient planned discharged to [facility] rehab facility in stable condition with outpatient follow-up. Placement waiting on financial agreement with the [facility] division manager and family in agreement. 06/03: Discharge pending on placement 06/04: Pending placement 06/05: Pending placement. c/o abdominal pain today. noted to have high white count today, patient was treated with cefepime's for 7 days per ID recommendation. Will resume cefepime and reconsult GS, Monitor CBC. 06/06: repeat CT abdomen suggestive of possible cystitis - will treat with 3 days of rocephin and stop cefepime, d/c brewster. add stool softner. No further surgical intervention per GS. pending placement 06/07: H/H dropped, transfuse one unit PRBC - ordered stool for occult blood 06/08: placed back brewster today as patient developed urinary retention. h/h stable after transfusion. pending placement. d/c plavix and heparin, cont aspirin only for anemia. 06/09: h/h stable. discussed with daughter in details about his overall clinical condition. I recommended possible hospice care for the patient considering his underlying chronic conditions - CVA with bedbound state, chronic cholecystitis, recurrent UTI, chronic physical debility, chronic anemia. daughter is in agreement - will cont to follow. She will discuss with her brother about code status and will update us tomorrow. 06/10: Continue supportive care, awaiting placement. hospice and snf placement going. 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 Patient was found to have suprapubic tenderness and temp of 101.4 F. In the ED patient was found to be hypotensive with a systolic blood pressure in the 80s and tachycardic. Labs significant for wbc 18, BUN 36, Creat 3.8 and Lactate 3.7. Patient was found to have UTI, septic shock, EBENEZER and toxic metabolic encephalopathy. Patient was admitted to ICU and initiated on sepsis protocol and initiated on IV pressor. 05/23/2020 -Septic shock likely due to UTI, patient is on IV cefepime, IV fluid and pressor support. Critical care consulted -Acute renal failure, improved with IV fluids, nephrology consulted 05/24/2020 -Admitted for septic shock due to UTI, patient is on IV cefepime, IV fluids, pressor support, ID consulted. 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 Patient was found to have suprapubic tenderness and temp of 101.4 F. In the ED patient was found to be hypotensive with a systolic blood pressure in the 80s and tachycardic. Labs significant for wbc 18, BUN 36, Creat 3.8 and Lactate 3.7. Patient was found to have UTI, septic shock, EBENEZER and toxic metabolic encephalopathy. Patient was admitted to ICU and initiated on sepsis protocol and initiated on IV pressor. 05/25/2020 -Patient is on IV cefepime and ID increase the dose. -Acute renal failure is improving -Patient had history of cholecystostomy tube placement and was seen by general surgery and order imaging study. -Patient is still on pressors for low blood pressure 05/27/2020 -Patient was admitted for septic shock and he is doing well. Continue with cefepime while he is here and can be discharged with po Levaquin to finish a total of 7 days course of antibiotics. He was evaluated by general surgery and imaging was done and no further work-up is needed. GI also saw the patient. Patient is stable for discharge Case management is working for placement. Patient's family does not want him to go back to the facility where he came from. 05/28/2020 patient is alert today able to make needs known at this particular time. Recently admitted for septic shock. Currently treated with cefepime while in house. Awaiting placement will change to Levaquin to complete 6 more days of antibiotics. Stable for discharge awaiting placement Case management. 05/29/2020. Patient doing well able to make all needs known no new concerns. Patient wants to know that he was doing well. No more in shock. Awaiting placement. Patient tolerated change to Levaquin well. Patient is not eating solid foods that well will change to pured diet and see how effective that may be. 05/30/2020. Patient resting comfortably no acute distress. Hospital course uncomplicated over p.m. Patient doing better with change in the consistency of diet. Currently awaiting placement. 05/31/2020. Etiology of acute kidney injury secondary to vasomotor nephropathy/ATN in the setting of sepsis/septic shock. CT abdomen negative for hydronephrosis. ID recommended cefepime 2 g every 8 hours with completion total of 7 days. Case management working on placement. 06/01/2020. Continue IV antibiotics per ID recommendations. Case management still working on placement. 06/02/20: Negative Covid test. Patient planned discharged to [facility] and rehab facility in stable condition with outpatient follow-up. Placement waiting on financial agreement with the [facility] division manager and family in agreement. 06/03: Discharge pending on placement 06/04: Pending placement 06/05: Pending placement. c/o abdominal pain today. noted to have high white count today, patient was treated with cefepime's for 7 days per ID recommendat ion. Will resume cefepime and reconsult GS, Monitor CBC. 06/06: repeat CT abdomen suggestive of possible cystitis - will treat with 3 days of rocephin and stop cefepime, d/c brewster. add stool softner. No further surgical intervention per GS. pending placement 06/07: H/H dropped, transfuse one unit PRBC - ordered stool for occult blood 06/08: placed back brewster today as patient developed urinary retention. h/h stable after transfusion. pending placement. d/c plavix and heparin, cont aspirin only for anemia. 06/09: h/h stable. discussed with daughter in details about his overall clinical condition. I recommended possible hospice care for the patient considering his underlying chronic conditions - CVA with bedbound state, chronic cholecystitis, recurrent UTI, chronic physical debility, chronic anemia. daughter is in agreement - will cont to follow. She will discuss with her brother about code status and will update us tomorrow. 06/10: Continue supportive care, awaiting placement. hospice and snf placement going. 06/11 no acute events overnight, lab results reviewed, repeat BMP in a.m., awaiting placement, pulmonary note reviewed 06/13 no new concerns today. Patient doing well. Awaiting placement labs reviewed Objective - Constitutional Vitals: Vital Signs - 12hr 06/12/20 06/12/20 06/12/20 21:11 22:00 23:24 Temperature 98.5 F Pulse Rate 83 83 Respiratory 20 16 Rate Blood Pressure 110/61 O2 Sat by Pulse 94 Oximetry 06/13/20 06/13/20 04:40 08:00 Temperature 98.0 F Pulse Rate 85 Respiratory 16 18 Rate Blood Pressure 123/67 O2 Sat by Pulse 97 97 Oximetry General appearance: Present: no acute distress, well-nourished - EENT Eyes: PERRL, EOM intact ENT: hearing intact, clear oral mucosa Ears: bilateral: normal - Neck Neck: supple, normal ROM - Respiratory Respiratory effort: normal Respiratory: bilateral: CTA - Breasts Breasts: normal - Cardiovascular Rhythm: regular Heart Sounds: Present: S1 & S2. Absent: gallop, rub Extremities: pulses intact, No edema, normal color, Full ROM - Gastrointestinal General gastrointestinal: Present: soft, non-tender, non-distended, normal bowel sounds - Genitourinary Male genitourinary: normal - Integumentary Integumentary: clear, warm, dry - Musculoskeletal Musculoskeletal: 1, strength equal bilaterally - Neurologic Neurologic: moves all extremities - Psychiatric Psychiatric: memory intact, appropriate mood/affect, intact judgment & insight - Labs CBC & Chem 7: 06/12/20 05:30 06/12/20 05:30 Labs: Abnormal lab results 06/12/20 Range/Units 15:49 POC Glucose 112 H (70-105) mg/dL HEART Score - HEART Score Troponin: Troponin T 0.271 ng/mL (0.00-0.029) H* 05/22/20 09:10
[2020-06-13] MEDS: POTASSIUM CHLORIDE ER 20 MEQ TAB PO SCH (09:07)
[2020-06-13] MEDS: PANTOPRAZOLE 40 MG TAB PO SCH (09:07)
[2020-06-13] MEDS: ASPIRIN 81 MG TAB CHEW PO SCH (09:07)
[2020-06-13] MEDS: DOCUSATE SODIUM 100 MG/10 ML ORAL LIQD PO SCH ×2 (09:08→22:50)
--- NOTE | 2020-06-13 14:17 | Progress Note ---
Assessment and Plan Patient sleeping on room air.O2 saturation 98% . No acute respiratory distress.Patients HGB 6.4.Patient received blood transfusion.Patients HGB came up to 9.6. Patient afebrile. No leukocytosis. Chest xray done 05/22/20 reported no acute findings. Patient is on Albuterol inhaler, Protonix. - Patient Problems (1) Hypoxia Current Visit: No Status: Acute Plan to address problem: Improved. O2 saturation 98% on room air. (2) Septic shock Current Visit: Yes Status: Acute Plan to address problem: Improved. Patient treated with cefepime and ceftriaxone. (3) Acute renal failure Current Visit: Yes Status: Acute Qualifiers: Acute renal failure type: with acute tubular necrosis Qualified Code(s): N17.0 - Acute kidney failure with tubular necrosis Plan to address problem: Management as per nephrology. (4) Toxic metabolic encephalopathy Current Visit: Yes Status: Acute Plan to address problem: Management as per primary care. (5) UTI (urinary tract infection) Current Visit: Yes Status: Acute Qualifiers: Encounter type: initial encounter Plan to address problem: Patient was treated with cefepime and ceftriaxone (6) Acute cholecystitis Current Visit: No Status: Acute Plan to address problem: S/P percutaneous cholecystotomy drain placement. Management as per gastroenterology. (7) CVA (cerebral vascular accident) Current Visit: No Status: Acute Plan to address problem: Management as per primary care. (8) Hypertension Current Visit: No Status: Acute Plan to address problem: Management as per primary care. (9) Anemia Current Visit: No Status: Acute Plan to address problem: Received Blood transfusion. Patients recent HGB 9.6. Management as per primary care and hematology. Subjective Date of service: 06/13/20 Principal diagnosis: Septic shock; Metabolic Acidosis; Ac, Toxic metabolic encephalopathy; EBENEZER Interval history: Patient sleeping on room air.O2 saturation 98% . No acute respiratory distress.Patients HGB 6.4.Patient received blood transfusion.Patients HGB came up to 9.6. Patient afebrile. No leukocytosis. Chest xray done 05/22/20 reported no acute findings. Patient is on Albuterol inhaler, Protonix. Objective Vital Signs - 12hr 06/13/20 06/13/20 06/13/20 04:40 07:15 07:32 Temperature 98.0 F 97.9 F Pulse Rate 85 76 80 Respiratory 16 18 Rate Blood Pressure 123/67 131/69 O2 Sat by Pulse 97 97 Oximetry 06/13/20 06/13/20 08:00 11:54 Temperature 98.4 F Pulse Rate 88 Respiratory 18 18 Rate Blood Pressure 113/63 O2 Sat by Pulse 97 98 Oximetry Constitutional: no acute distress, asleep Eyes: non-icteric ENT: oropharynx moist Neck: supple, no lymphadenopathy, no JVD Effort: normal Ascultation: Bilateral: diminished breath sounds Percussion: Bilateral: not dull Cardiovascular: regular rate and rhythm Gastrointestinal: normoactive bowel sounds, soft, tender (mild, LLQ, RUQ), non- distended (protuberant'), other (RUQ J-P drain) Integumentary: normal Extremities: no cyanosis, no edema, pink and warm, pulses normal Neurologic: non-focal exam (grossly), pupils equal and round, CN II-XII normal, other (slow to respond) Psychiatric: other (flat affect) CBC and BMP: 06/12/20 05:30 06/12/20 05:30 ABG, PT/INR, D-dimer: PT/INR, D-dimer PT 15.5 Sec. (12.2-14.9) H 05/22/20 09:10 INR 1.25 (0.87-1.13) H 05/22/20 09:10 Abnormal lab findings: Abnormal Labs 05/22/20 05/22/20 05/22/20 09:10 09:10 09:10 WBC 17.9 H RBC 3.60 L Hgb 8.7 L Hct 26.8 L MCV 74 L MCH 24 L RDW 24.0 H Plt Count 621 H Lymph % (Auto) [place] % (Auto) [place] # (Auto) Seg Neutrophils % Seg Neuts % (Manual) 85.0 H Lymphocytes % (Manual) 5.0 L Monocytes % (Manual) 8.0 H Eosinophils % (Manual) Seg Neutrophils # Seg Neutrophils # Man 15.2 H Lymphocytes # (Manual) 0.9 L Monocytes # (Manual) 1.4 H Eosinophils # (Manual) Basophils # (Manual) PT INR APTT Sodium Potassium Chloride Carbon Dioxide BUN Creatinine Glucose POC Glucose Lactic Acid 3.30 H* Calcium Phosphorus Magnesium Direct Bilirubin Alkaline Phosphatase Troponin T 0.271 H* NT-Pro-B Natriuret Pep Total Protein Albumin HDL Cholesterol 39 L Urine pH Urine WBC (Auto) Urine Creatinine Crossmatch 05/22/20 05/22/20 05/22/20 09:10 09:10 09:32 WBC RBC Hgb Hct MCV MCH RDW Plt Count Lymph % (Auto) [place] % (Auto) [place] # (Auto) Seg Neutrophils % Seg Neuts % (Manual) Lymphocytes % (Manual) Monocytes % (Manual) Eosinophils % (Manual) Seg Neutrophils # Seg Neutrophils # Man Lymphocytes # (Manual) Monocytes # (Manual) Eosinophils # (Manual) Basophils # (Manual) PT 15.5 H INR 1.25 H APTT 47.6 H Sodium 136 L Potassium Chloride 97.2 L Carbon Dioxide BUN 36 H Creatinine 3.8 H Glucose 133 H POC Glucose Lactic Acid Calcium 7.8 L Phosphorus Magnesium Direct Bilirubin 0.3 H Alkaline Phosphatase 248 H Troponin T NT-Pro-B Natriuret Pep 1448 H Total Protein Albumin 2.8 L HDL Cholesterol Urine pH 8.0 H Urine WBC (Auto) > 182.0 H Urine Creatinine Crossmatch 05/22/20 05/22/20 05/22/20 09:49 11:42 19:48 WBC RBC Hgb Hct MCV MCH RDW Plt Count Lymph % (Auto) [place] % (Auto) [place] # (Auto) Seg Neutrophils % Seg Neuts % (Manual) Lymphocytes % (Manual) Monocytes % (Manual) Eosinophils % (Manual) Seg Neutrophils # Seg Neutrophils # Man Lymphocytes # (Manual) Monocytes # (Manual) Eosinophils # (Manual) Basophils # (Manual) PT INR APTT Sodium Potassium Chloride Carbon Dioxide BUN Creatinine Glucose POC Glucose Lactic Acid 3.70 H* 2.10 H* Calcium Phosphorus Magnesium Direct Bilirubin Alkaline Phosphatase Troponin T NT-Pro-B Natriuret Pep Total Protein Albumin HDL Cholesterol Urine pH Urine WBC (Auto) Urine Creatinine 48.1 H Crossmatch 05/22/20 05/23/20 05/23/20 23:27 05:05 05:05 WBC 20.3 H RBC 2.73 L Hgb 6.6 L Hct 20.8 L D MCV 76 L MCH 24 L RDW 23.9 H Plt Count 546 H Lymph % (Auto) 11.5 L [place] % (Auto) [place] # (Auto) 1.2 H Seg Neutrophils % 81.5 H Seg Neuts % (Manual) Lymphocytes % (Manual) Monocytes % (Manual) Eosinophils % (Manual) Seg Neutrophils # 16.5 H Seg Neutrophils # Man Lymphocytes # (Manual) Monocytes # (Manual) Eosinophils # (Manual) Basophils # (Manual) PT INR APTT Sodium Potassium Chloride 112.5 H Carbon Dioxide 20 L BUN 26 H Creatinine 1.8 H D Glucose 135 H POC Glucose 124 H Lactic Acid Calcium 6.8 L Phosphorus Magnesium Direct Bilirubin Alkaline Phosphatase Troponin T NT-Pro-B Natriuret Pep Total Protein Albumin HDL Cholesterol Urine pH Urine WBC (Auto) Urine Creatinine Crossmatch 05/23/20 05/23/20 05/23/20 05:38 06:10 11:33 WBC RBC Hgb Hct MCV MCH RDW Plt Count Lymph % (Auto) [place] % (Auto) [place] # (Auto) Seg Neutrophils % Seg Neuts % (Manual) Lymphocytes % (Manual) Monocytes % (Manual) Eosinophils % (Manual) Seg Neutrophils # Seg Neutrophils # Man Lymphocytes # (Manual) Monocytes # (Manual) Eosinophils # (Manual) Basophils # (Manual) PT INR APTT Sodium Potassium Chloride Carbon Dioxide BUN Creatinine Glucose POC Glucose 112 H 128 H Lactic Acid Calcium Phosphorus Magnesium Direct Bilirubin Alkaline Phosphatase Troponin T NT-Pro-B Natriuret Pep Total Protein Albumin HDL Cholesterol Urine pH Urine WBC (Auto) Urine Creatinine Crossmatch See Detail 05/23/20 05/23/20 05/23/20 14:45 17:49 23:34 WBC RBC Hgb 8.4 L Hct 26.4 L MCV MCH RDW Plt Count Lymph % (Auto) [place] % (Auto) [place] # (Auto) Seg Neutrophils % Seg Neuts % (Manual) Lymphocytes % (Manual) Monocytes % (Manual) Eosinophils % (Manual) Seg Neutrophils # Seg Neutrophils # Man Lymphocytes # (Manual) Monocytes # (Manual) Eosinophils # (Manual) Basophils # (Manual) PT INR APTT Sodium Potassium Chloride Carbon Dioxide BUN Creatinine Glucose POC Glucose 112 H 116 H Lactic Acid Calcium Phosphorus Magnesium Direct Bilirubin Alkaline Phosphatase Troponin T NT-Pro-B Natriuret Pep Total Protein Albumin HDL Cholesterol Urine pH Urine WBC (Auto) Urine Creatinine Crossmatch 05/24/20 05/24/20 05/25/20 05:45 05:45 05:00 WBC 18.4 H RBC 3.35 L Hgb 8.6 L Hct 26.5 L MCV 79 L MCH 26 L RDW 23.9 H Plt Count Lymph % (Auto) [place] % (Auto) [place] # (Auto) Seg Neutrophils % Seg Neuts % (Manual) 81.0 H Lymphocytes % (Manual) 12.0 L Monocytes % (Manual) Eosinophils % (Manual) Seg Neutrophils # Seg Neutrophils # Man 14.9 H Lymphocytes # (Manual) Monocytes # (Manual) 1.3 H Eosinophils # (Manual) Basophils # (Manual) PT INR APTT Sodium Potassium 3.1 L Chloride 109.5 H Carbon Dioxide BUN Creatinine Glucose 111 H POC Glucose Lactic Acid Calcium 6.8 L 7.2 L Phosphorus Magnesium 1.00 L Direct Bilirubin Alkaline Phosphatase Troponin T NT-Pro-B Natriuret Pep Total Protein Albumin HDL Cholesterol Urine pH Urine WBC (Auto) Urine Creatinine Crossmatch 05/25/20 05/25/20 05/25/20 09:34 11:31 18:25 WBC 12.7 H RBC 3.14 L Hgb 8.0 L Hct 24.6 L MCV 78 L MCH 25 L RDW 25.0 H Plt Count Lymph % (Auto) [place] % (Auto) [place] # (Auto) Seg Neutrophils % Seg Neuts % (Manual) 94.0 H Lymphocytes % (Manual) 3.0 L Monocytes % (Manual) Eosinophils % (Manual) Seg Neutrophils # Seg Neutrophils # Man 11.9 H Lymphocytes # (Manual) 0.4 L Monocytes # (Manual) Eosinophils # (Manual) Basophils # (Manual) PT INR APTT Sodium Potassium Chloride Carbon Dioxide BUN Creatinine Glucose POC Glucose 63 L 57 L Lactic Acid Calcium Phosphorus Magnesium Direct Bilirubin Alkaline Phosphatase Troponin T NT-Pro-B Natriuret Pep Total Protein Albumin HDL Cholesterol Urine pH Urine WBC (Auto) Urine Creatinine Crossmatch 05/25/20 05/26/20 05/26/20 23:44 04:16 04:16 WBC RBC 3.07 L Hgb 8.0 L Hct 24.2 L MCV 79 L MCH 26 L RDW 24.8 H Plt Count Lymph % (Auto) [place] % (Auto) [place] # (Auto) Seg Neutrophils % Seg Neuts % (Manual) 85.0 H Lymphocytes % (Manual) 8.0 L Monocytes % (Manual) Eosinophils % (Manual) 5.0 H Seg Neutrophils # Seg Neutrophils # Man 7.9 H Lymphocytes # (Manual) 0.7 L Monocytes # (Manual) Eosinophils # (Manual) 0.5 H Basophils # (Manual) PT INR APTT Sodium Potassium 3.4 L Chloride 108.6 H Carbon Dioxide BUN Creatinine 0.7 L Glucose 101 H POC Glucose 52 L Lactic Acid Calcium 7.7 L Phosphorus Magnesium Direct Bilirubin Alkaline Phosphatase Troponin T NT-Pro-B Natriuret Pep Total Protein Albumin HDL Cholesterol Urine pH Urine WBC (Auto) Urine Creatinine Crossmatch 05/26/20 05/27/20 05/27/20 12:41 00:45 06:23 WBC RBC Hgb Hct MCV MCH RDW Plt Count Lymph % (Auto) [place] % (Auto) [place] # (Auto) Seg Neutrophils % Seg Neuts % (Manual) Lymphocytes % (Manual) Monocytes % (Manual) Eosinophils % (Manual) Seg Neutrophils # Seg Neutrophils # Man Lymphocytes # (Manual) Monocytes # (Manual) Eosinophils # (Manual) Basophils # (Manual) PT INR APTT Sodium 135 L Potassium 3.4 L Chloride Carbon Dioxide BUN Creatinine Glucose POC Glucose 64 L Lactic Acid Calcium 7.4 L Phosphorus Magnesium Direct Bilirubin Alkaline Phosphatase 566 H Troponin T NT-Pro-B Natriuret Pep Total Protein 5.3 L D Albumin 1.9 L HDL Cholesterol Urine pH Urine WBC (Auto) Urine Creatinine Crossmatch 05/28/20 05/29/20 05/29/20 04:35 17:01 18:54 WBC RBC Hgb Hct MCV MCH RDW Plt Count Lymph % (Auto) [place] % (Auto) [place] # (Auto) Seg Neutrophils % Seg Neuts % (Manual) Lymphocytes % (Manual) Monocytes % (Manual) Eosinophils % (Manual) Seg Neutrophils # Seg Neutrophils # Man Lymphocytes # (Manual) Monocytes # (Manual) Eosinophils # (Manual) Basophils # (Manual) PT INR APTT Sodium Potassium Chloride Carbon Dioxide BUN Creatinine 0.7 L Glucose POC Glucose 57 L 135 H Lactic Acid Calcium 7.7 L Phosphorus Magnesium Direct Bilirubin Alkaline Phosphatase Troponin T NT-Pro-B Natriuret Pep Total Protein Albumin HDL Cholesterol Urine pH Urine WBC (Auto) Urine Creatinine Crossmatch 05/30/20 05/30/20 05/30/20 05:42 11:30 23:28 WBC RBC Hgb Hct MCV MCH RDW Plt Count Lymph % (Auto) [place] % (Auto) [place] # (Auto) Seg Neutrophils % Seg Neuts % (Manual) Lymphocytes % (Manual) Monocytes % (Manual) Eosinophils % (Manual) Seg Neutrophils # Seg Neutrophils # Man Lymphocytes # (Manual) Monocytes # (Manual) Eosinophils # (Manual) Basophils # (Manual) PT INR APTT Sodium Potassium 3.4 L Chloride Carbon Dioxide BUN 6 L Creatinine 0.6 L Glucose 105 H POC Glucose 51 L 55 L Lactic Acid Calcium 7.5 L Phosphorus 1.80 L Magnesium Direct Bilirubin Alkaline Phosphatase Troponin T NT-Pro-B Natriuret Pep Total Protein Albumin HDL Cholesterol Urine pH Urine WBC (Auto) Urine Creatinine Crossmatch 05/31/20 05/31/20 06/04/20 05:37 11:49 18:35 WBC RBC Hgb Hct MCV MCH RDW Plt Count Lymph % (Auto) [place] % (Auto) [place] # (Auto) Seg Neutrophils % Seg Neuts % (Manual) Lymphocytes % (Manual) Monocytes % (Manual) Eosinophils % (Manual) Seg Neutrophils # Seg Neutrophils # Man Lymphocytes # (Manual) Monocytes # (Manual) Eosinophils # (Manual) Basophils # (Manual) PT INR APTT Sodium 136 L Potassium Chloride Carbon Dioxide BUN 6 L Creatinine 0.6 L Glucose POC Glucose 115 H 141 H Lactic Acid Calcium 7.5 L Phosphorus Magnesium Direct Bilirubin Alkaline Phosphatase Troponin T NT-Pro-B Natriuret Pep Total Protein Albumin HDL Cholesterol Urine pH Urine WBC (Auto) Urine Creatinine Crossmatch 06/05/20 06/05/20 06/05/20 07:43 10:42 11:35 WBC 20.4 H RBC 3.08 L Hgb 7.6 L Hct 23.5 L MCV 76 L MCH 25 L RDW 26.1 H Plt Count Lymph % (Auto) [place] % (Auto) [place] # (Auto) Seg Neutrophils % Seg Neuts % (Manual) 82.0 H Lymphocytes % (Manual) 9.0 L Monocytes % (Manual) Eosinophils % (Manual) Seg Neutrophils # Seg Neutrophils # Man 16.7 H Lymphocytes # (Manual) Monocytes # (Manual) 1.0 H Eosinophils # (Manual) Basophils # (Manual) 67.7 H PT INR APTT Sodium Potassium Chloride Carbon Dioxide BUN 8 L Creatinine 0.5 L Glucose POC Glucose 131 H Lactic Acid Calcium 7.2 L Phosphorus Magnesium Direct Bilirubin Alkaline Phosphatase Troponin T NT-Pro-B Natriuret Pep Total Protein Albumin HDL Cholesterol Urine pH Urine WBC (Auto) Urine Creatinine Crossmatch 06/05/20 06/06/20 06/06/20 16:29 12:42 22:45 WBC 13.9 H RBC 2.61 L Hgb 6.7 L 6.8 L Hct 19.8 L* 21.0 L MCV 76 L MCH 26 L RDW 25.8 H Plt Count Lymph % (Auto) [place] % (Auto) [place] # (Auto) Seg Neutrophils % Seg Neuts % (Manual) Lymphocytes % (Manual) Monocytes % (Manual) Eosinophils % (Manual) Seg Neutrophils # Seg Neutrophils # Man Lymphocytes # (Manual) Monocytes # (Manual) Eosinophils # (Manual) Basophils # (Manual) PT INR APTT Sodium Potassium Chloride Carbon Dioxide BUN Creatinine Glucose POC Glucose 118 H Lactic Acid Calcium Phosphorus Magnesium Direct Bilirubin Alkaline Phosphatase Troponin T NT-Pro-B Natriuret Pep Total Protein Albumin HDL Cholesterol Urine pH Urine WBC (Auto) Urine Creatinine Crossmatch 06/07/20 06/07/20 06/07/20 05:19 06:48 16:00 WBC RBC Hgb 6.4 L 8.7 L Hct 19.5 L* 25.5 L D MCV MCH RDW Plt Count Lymph % (Auto) [place] % (Auto) [place] # (Auto) Seg Neutrophils % Seg Neuts % (Manual) Lymphocytes % (Manual) Monocytes % (Manual) Eosinophils % (Manual) Seg Neutrophils # Seg Neutrophils # Man Lymphocytes # (Manual) Monocytes # (Manual) Eosinophils # (Manual) Basophils # (Manual) PT INR APTT Sodium Potassium Chloride Carbon Dioxide BUN Creatinine Glucose POC Glucose Lactic Acid Calcium Phosphorus Magnesium Direct Bilirubin Alkaline Phosphatase Troponin T NT-Pro-B Natriuret Pep Total Protein Albumin HDL Cholesterol Urine pH Urine WBC (Auto) Urine Creatinine Crossmatch See Detail 06/07/20 06/08/20 06/08/20 22:50 05:34 05:34 WBC 13.6 H RBC 3.55 L Hgb 9.5 L 9.5 L Hct 29.1 L 28.5 L MCV 80 L MCH 27 L RDW 22.4 H Plt Count Lymph % (Auto) [place] % (Auto) [place] # (Auto) Seg Neutrophils % Seg Neuts % (Manual) 93.0 H Lymphocytes % (Manual) 3.0 L Monocytes % (Manual) Eosinophils % (Manual) Seg Neutrophils # Seg Neutrophils # Man 12.6 H Lymphocytes # (Manual) 0.4 L Monocytes # (Manual) Eosinophils # (Manual) Basophils # (Manual) PT INR APTT Sodium Potassium 3.4 L Chloride Carbon Dioxide BUN 8 L Creatinine 0.5 L Glucose POC Glucose Lactic Acid Calcium 7.3 L Phosphorus Magnesium Direct Bilirubin Alkaline Phosphatase Troponin T NT-Pro-B Natriuret Pep Total Protein Albumin HDL Cholesterol Urine pH Urine WBC (Auto) Urine Creatinine Crossmatch 06/08/20 06/09/20 06/10/20 12:05 12:22 05:12 WBC RBC 3.19 L Hgb 8.7 L Hct 25.6 L MCV 80 L MCH 27 L RDW 22.7 H Plt Count Lymph % (Auto) [place] % (Auto) 10.4 H [place] # (Auto) Seg Neutrophils % Seg Neuts % (Manual) Lymphocytes % (Manual) Monocytes % (Manual) Eosinophils % (Manual) Seg Neutrophils # Seg Neutrophils # Man Lymphocytes # (Manual) Monocytes # (Manual) Eosinophils # (Manual) Basophils # (Manual) PT INR APTT Sodium Potassium Chloride Carbon Dioxide BUN Creatinine Glucose POC Glucose 121 H 118 H Lactic Acid Calcium Phosphorus Magnesium Direct Bilirubin Alkaline Phosphatase Troponin T NT-Pro-B Natriuret Pep Total Protein Albumin HDL Cholesterol Urine pH Urine WBC (Auto) Urine Creatinine Crossmatch 06/10/20 06/10/20 06/10/20 05:12 11:52 22:01 WBC RBC Hgb Hct MCV MCH RDW Plt Count Lymph % (Auto) [place] % (Auto) [place] # (Auto) Seg Neutrophils % Seg Neuts % (Manual) Lymphocytes % (Manual) Monocytes % (Manual) Eosinophils % (Manual) Seg Neutrophils # Seg Neutrophils # Man Lymphocytes # (Manual) Monocytes # (Manual) Eosinophils # (Manual) Basophils # (Manual) PT INR APTT Sodium Potassium 3.3 L Chloride Carbon Dioxide 33 H BUN 7 L Creatinine 0.4 L Glucose POC Glucose 109 H 68 L Lactic Acid Calcium 7.1 L Phosphorus Magnesium Direct Bilirubin Alkaline Phosphatase Troponin T NT-Pro-B Natriuret Pep Total Protein Albumin HDL Cholesterol Urine pH Urine WBC (Auto) Urine Creatinine Crossmatch 06/10/20 06/11/20 06/11/20 23:15 06:16 11:12 WBC RBC Hgb 10.0 L Hct 30.4 L MCV 81 L MCH 27 L RDW 22.8 H Plt Count Lymph % (Auto) [place] % (Auto) [place] # (Auto) Seg Neutrophils % Seg Neuts % (Manual) Lymphocytes % (Manual) Monocytes % (Manual) Eosinophils % (Manual) Seg Neutrophils # Seg Neutrophils # Man Lymphocytes # (Manual) Monocytes # (Manual) Eosinophils # (Manual) Basophils # (Manual) PT INR APTT Sodium Potassium Chloride Carbon Dioxide BUN Creatinine Glucose POC Glucose 112 H 120 H Lactic Acid Calcium Phosphorus Magnesium Direct Bilirubin Alkaline Phosphatase Troponin T NT-Pro-B Natriuret Pep Total Protein Albumin HDL Cholesterol Urine pH Urine WBC (Auto) Urine Creatinine Crossmatch 06/11/20 06/12/20 06/12/20 16:19 05:30 05:30 WBC RBC 3.63 L Hgb 9.6 L Hct 29.3 L MCV 81 L MCH 27 L RDW 23.4 H Plt Count Lymph % (Auto) [place] % (Auto) [place] # (Auto) Seg Neutrophils % Seg Neuts % (Manual) Lymphocytes % (Manual) Monocytes % (Manual) Eosinophils % (Manual) Seg Neutrophils # Seg Neutrophils # Man Lymphocytes # (Manual) Monocytes # (Manual) Eosinophils # (Manual) Basophils # (Manual) PT INR APTT Sodium Potassium Chloride Carbon Dioxide 31 H BUN 7 L Creatinine 0.5 L Glucose POC Glucose 68 L Lactic Acid Calcium 7.3 L Phosphorus Magnesium Direct Bilirubin Alkaline Phosphatase Troponin T NT-Pro-B Natriuret Pep Total Protein Albumin HDL Cholesterol Urine pH Urine WBC (Auto) Urine Creatinine Crossmatch 06/12/20 06/13/20 15:49 07:32 WBC RBC Hgb Hct MCV MCH RDW Plt Count Lymph % (Auto) [place] % (Auto) [place] # (Auto) Seg Neutrophils % Seg Neuts % (Manual) Lymphocytes % (Manual) Monocytes % (Manual) Eosinophils % (Manual) Seg Neutrophils # Seg Neutrophils # Man Lymphocytes # (Manual) Monocytes # (Manual) Eosinophils # (Manual) Basophils # (Manual) PT INR APTT Sodium Potassium Chloride Carbon Dioxide BUN Creatinine Glucose POC Glucose 112 H 68 L Lactic Acid Calcium Phosphorus Magnesium Direct Bilirubin Alkaline Phosphatase Troponin T NT-Pro-B Natriuret Pep Total Protein Albumin HDL Cholesterol Urine pH Urine WBC (Auto) Urine Creatinine Crossmatch Allied health notes reviewed: nursing
--- NOTE | 2020-06-14 10:30 | Progress Note ---
Assessment and Plan Patient sleeping on room air.O2 saturation 94% . No acute respiratory distress.No change in general condition.Patients HGB 6.4.Patient received blood transfusion.Patients HGB came up to 9.6. Patient afebrile. No leukocytosis. Chest xray done 05/22/20 reported no acute findings. Patient is on Albuterol inhaler, Protonix. - Patient Problems (1) Hypoxia Current Visit: No Status: Acute Plan to address problem: Improved. O2 saturation 94% on room air. (2) Septic shock Current Visit: Yes Status: Acute Plan to address problem: Improved. Patient treated with cefepime and ceftriaxone. (3) Acute renal failure Current Visit: Yes Status: Acute Qualifiers: Acute renal failure type: with acute tubular necrosis Qualified Code(s): N17.0 - Acute kidney failure with tubular necrosis Plan to address problem: Management as per nephrology. (4) Toxic metabolic encephalopathy Current Visit: Yes Status: Acute Plan to address problem: Management as per primary care. (5) UTI (urinary tract infection) Current Visit: Yes Status: Acute Qualifiers: Encounter type: initial encounter Plan to address problem: Patient was treated with cefepime and ceftriaxone (6) Acute cholecystitis Current Visit: No Status: Acute Plan to address problem: S/P percutaneous cholecystotomy drain placement. Management as per gastroenterology. (7) CVA (cerebral vascular accident) Current Visit: No Status: Acute Plan to address problem: Management as per primary care. (8) Hypertension Current Visit: No Status: Acute Plan to address problem: Management as per primary care. (9) Anemia Current Visit: No Status: Acute Plan to address problem: Received Blood transfusion. Patients recent HGB 9.6. Management as per primary care and hematology. Subjective Date of service: 06/14/20 Principal diagnosis: Septic shock; Metabolic Acidosis; Ac, Toxic metabolic encephalopathy; EBENEZER Interval history: Patient sleeping on room air.O2 saturation 94% . No acute respiratory distress.No change in general condition. Patients HGB 6.4.Patient received blood transfusion.Patients HGB came up to 9.6. Patient afebrile. No leukocytosis. Chest xray done 05/22/20 reported no acute findings. Patient is on Albuterol inhaler, Protonix. Objective Vital Signs - 12hr 06/13/20 06/14/20 06/14/20 23:34 03:32 08:31 Temperature 99.4 F Pulse Rate 94 H 101 H 84 Respiratory 18 18 Rate Blood Pressure 139/63 109/62 Blood Pressure 122/61 [Left] O2 Sat by Pulse 96 100 94 Oximetry Constitutional: no acute distress, asleep Eyes: non-icteric ENT: oropharynx moist Neck: supple, no lymphadenopathy, no JVD Effort: normal Ascultation: Bilateral: diminished breath sounds Percussion: Bilateral: not dull Cardiovascular: regular rate and rhythm Gastrointestinal: normoactive bowel sounds, soft, tender (mild, LLQ, RUQ), non-distended (protuberant'), other (RUQ J-P drain) Integumentary: normal Extremities: no cyanosis, no edema, pink and warm, pulses normal Neurologic: non-focal exam (grossly), pupils equal and round, CN II-XII normal, other (slow to respond) Psychiatric: other (flat affect) CBC and BMP: 06/12/20 05:30 06/12/20 05:30 ABG, PT/INR, D-dimer: PT/INR, D-dimer PT 15.5 Sec. (12.2-14.9) H 05/22/20 09:10 INR 1.25 (0.87-1.13) H 05/22/20 09:10 Abnormal lab findings: Abnormal Labs 05/22/20 05/22/20 05/22/20 09:10 09:10 09:10 WBC 17.9 H RBC 3.60 L Hgb 8.7 L Hct 26.8 L MCV 74 L MCH 24 L RDW 24.0 H Plt Count 621 H Lymph % (Auto) Desha % (Auto) Desha # (Auto) Seg Neutrophils % Seg Neuts % (Manual) 85.0 H Lymphocytes % (Manual) 5.0 L Monocytes % (Manual) 8.0 H Eosinophils % (Manual) Seg Neutrophils # Seg Neutrophils # Man 15.2 H Lymphocytes # (Manual) 0.9 L Monocytes # (Manual) 1.4 H Eosinophils # (Manual) Basophils # (Manual) PT INR APTT Sodium Potassium Chloride Carbon Dioxide BUN Creatinine Glucose POC Glucose Lactic Acid 3.30 H* Calcium Phosphorus Magnesium Direct Bilirubin Alkaline Phosphatase Troponin T 0.271 H* NT-Pro-B Natriuret Pep Total Protein Albumin HDL Cholesterol 39 L Urine pH Urine WBC (Auto) Urine Creatinine Crossmatch 05/22/20 05/22/20 05/22/20 09:10 09:10 09:32 WBC RBC Hgb Hct MCV MCH RDW Plt Count Lymph % (Auto) Desha % (Auto) Desha # (Auto) Seg Neutrophils % Seg Neuts % (Manual) Lymphocytes % (Manual) Monocytes % (Manual) Eosinophils % (Manual) Seg Neutrophils # Seg Neutrophils # Man Lymphocytes # (Manual) Monocytes # (Manual) Eosinophils # (Manual) Basophils # (Manual) PT 15.5 H INR 1.25 H APTT 47.6 H Sodium 136 L Potassium Chloride 97.2 L Carbon Dioxide BUN 36 H Creatinine 3.8 H Glucose 133 H POC Glucose Lactic Acid Calcium 7.8 L Phosphorus Magnesium Direct Bilirubin 0.3 H Alkaline Phosphatase 248 H Troponin T NT-Pro-B Natriuret Pep 1448 H Total Protein Albumin 2.8 L HDL Cholesterol Urine pH 8.0 H Urine WBC (Auto) > 182.0 H Urine Creatinine Crossmatch 05/22/20 05/22/20 05/22/20 09:49 11:42 19:48 WBC RBC Hgb Hct MCV MCH RDW Plt Count Lymph % (Auto) Desha % (Auto) Desha # (Auto) Seg Neutrophils % Seg Neuts % (Manual) Lymphocytes % (Manual) Monocytes % (Manual) Eosinophils % (Manual) Seg Neutrophils # Seg Neutrophils # Man Lymphocytes # (Manual) Monocytes # (Manual) Eosinophils # (Manual) Basophils # (Manual) PT INR APTT Sodium Potassium Chloride Carbon Dioxide BUN Creatinine Glucose POC Glucose Lactic Acid 3.70 H* 2.10 H* Calcium Phosphorus Magnesium Direct Bilirubin Alkaline Phosphatase Troponin T NT-Pro-B Natriuret Pep Total Protein Albumin HDL Cholesterol Urine pH Urine WBC (Auto) Urine Creatinine 48.1 H Crossmatch 05/22/20 05/23/20 05/23/20 23:27 05:05 05:05 WBC 20.3 H RBC 2.73 L Hgb 6.6 L Hct 20.8 L D MCV 76 L MCH 24 L RDW 23.9 H Plt Count 546 H Lymph % (Auto) 11.5 L Desha % (Auto) Desha # (Auto) 1.2 H Seg Neutrophils % 81.5 H Seg Neuts % (Manual) Lymphocytes % (Manual) Monocytes % (Manual) Eosinophils % (Manual) Seg Neutrophils # 16.5 H Seg Neutrophils # Man Lymphocytes # (Manual) Monocytes # (Manual) Eosinophils # (Manual) Basophils # (Manual) PT INR APTT Sodium Potassium Chloride 112.5 H Carbon Dioxide 20 L BUN 26 H Creatinine 1.8 H D Glucose 135 H POC Glucose 124 H Lactic Acid Calcium 6.8 L Phosphorus Magnesium Direct Bilirubin Alkaline Phosphatase Troponin T NT-Pro-B Natriuret Pep Total Protein Albumin HDL Cholesterol Urine pH Urine WBC (Auto) Urine Creatinine Crossmatch 05/23/20 05/23/20 05/23/20 05:38 06:10 11:33 WBC RBC Hgb Hct MCV MCH RDW Plt Count Lymph % (Auto) Desha % (Auto) Desha # (Auto) Seg Neutrophils % Seg Neuts % (Manual) Lymphocytes % (Manual) Monocytes % (Manual) Eosinophils % (Manual) Seg Neutrophils # Seg Neutrophils # Man Lymphocytes # (Manual) Monocytes # (Manual) Eosinophils # (Manual) Basophils # (Manual) PT INR APTT Sodium Potassium Chloride Carbon Dioxide BUN Creatinine Glucose POC Glucose 112 H 128 H Lactic Acid Calcium Phosphorus Magnesium Direct Bilirubin Alkaline Phosphatase Troponin T NT-Pro-B Natriuret Pep Total Protein Albumin HDL Cholesterol Urine pH Urine WBC (Auto) Urine Creatinine Crossmatch See Detail 05/23/20 05/23/20 05/23/20 14:45 17:49 23:34 WBC RBC Hgb 8.4 L Hct 26.4 L MCV MCH RDW Plt Count Lymph % (Auto) Desha % (Auto) Desha # (Auto) Seg Neutrophils % Seg Neuts % (Manual) Lymphocytes % (Manual) Monocytes % (Manual) Eosinophils % (Manual) Seg Neutrophils # Seg Neutrophils # Man Lymphocytes # (Manual) Monocytes # (Manual) Eosinophils # (Manual) Basophils # (Manual) PT INR APTT Sodium Potassium Chloride Carbon Dioxide BUN Creatinine Glucose POC Glucose 112 H 116 H Lactic Acid Calcium Phosphorus Magnesium Direct Bilirubin Alkaline Phosphatase Troponin T NT-Pro-B Natriuret Pep Total Protein Albumin HDL Cholesterol Urine pH Urine WBC (Auto) Urine Creatinine Crossmatch 05/24/20 05/24/20 05/25/20 05:45 05:45 05:00 WBC 18.4 H RBC 3.35 L Hgb 8.6 L Hct 26.5 L MCV 79 L MCH 26 L RDW 23.9 H Plt Count Lymph % (Auto) Desha % (Auto) Desha # (Auto) Seg Neutrophils % Seg Neuts % (Manual) 81.0 H Lymphocytes % (Manual) 12.0 L Monocytes % (Manual) Eosinophils % (Manual) Seg Neutrophils # Seg Neutrophils # Man 14.9 H Lymphocytes # (Manual) Monocytes # (Manual) 1.3 H Eosinophils # (Manual) Basophils # (Manual) PT INR APTT Sodium Potassium 3.1 L Chloride 109.5 H Carbon Dioxide BUN Creatinine Glucose 111 H POC Glucose Lactic Acid Calcium 6.8 L 7.2 L Phosphorus Magnesium 1.00 L Direct Bilirubin Alkaline Phosphatase Troponin T NT-Pro-B Natriuret Pep Total Protein Albumin HDL Cholesterol Urine pH Urine WBC (Auto) Urine Creatinine Crossmatch 05/25/20 05/25/20 05/25/20 09:34 11:31 18:25 WBC 12.7 H RBC 3.14 L Hgb 8.0 L Hct 24.6 L MCV 78 L MCH 25 L RDW 25.0 H Plt Count Lymph % (Auto) Desha % (Auto) Desha # (Auto) Seg Neutrophils % Seg Neuts % (Manual) 94.0 H Lymphocytes % (Manual) 3.0 L Monocytes % (Manual) Eosinophils % (Manual) Seg Neutrophils # Seg Neutrophils # Man 11.9 H Lymphocytes # (Manual) 0.4 L Monocytes # (Manual) Eosinophils # (Manual) Basophils # (Manual) PT INR APTT Sodium Potassium Chloride Carbon Dioxide BUN Creatinine Glucose POC Glucose 63 L 57 L Lactic Acid Calcium Phosphorus Magnesium Direct Bilirubin Alkaline Phosphatase Troponin T NT-Pro-B Natriuret Pep Total Protein Albumin HDL Cholesterol Urine pH Urine WBC (Auto) Urine Creatinine Crossmatch 05/25/20 05/26/20 05/26/20 23:44 04:16 04:16 WBC RBC 3.07 L Hgb 8.0 L Hct 24.2 L MCV 79 L MCH 26 L RDW 24.8 H Plt Count Lymph % (Auto) Desha % (Auto) Desha # (Auto) Seg Neutrophils % Seg Neuts % (Manual) 85.0 H Lymphocytes % (Manual) 8.0 L Monocytes % (Manual) Eosinophils % (Manual) 5.0 H Seg Neutrophils # Seg Neutrophils # Man 7.9 H Lymphocytes # (Manual) 0.7 L Monocytes # (Manual) Eosinophils # (Manual) 0.5 H Basophils # (Manual) PT INR APTT Sodium Potassium 3.4 L Chloride 108.6 H Carbon Dioxide BUN Creatinine 0.7 L Glucose 101 H POC Glucose 52 L Lactic Acid Calcium 7.7 L Phosphorus Magnesium Direct Bilirubin Alkaline Phosphatase Troponin T NT-Pro-B Natriuret Pep Total Protein Albumin HDL Cholesterol Urine pH Urine WBC (Auto) Urine Creatinine Crossmatch 05/26/20 05/27/20 05/27/20 12:41 00:45 06:23 WBC RBC Hgb Hct MCV MCH RDW Plt Count Lymph % (Auto) Desha % (Auto) Desha # (Auto) Seg Neutrophils % Seg Neuts % (Manual) Lymphocytes % (Manual) Monocytes % (Manual) Eosinophils % (Manual) Seg Neutrophils # Seg Neutrophils # Man Lymphocytes # (Manual) Monocytes # (Manual) Eosinophils # (Manual) Basophils # (Manual) PT INR APTT Sodium 135 L Potassium 3.4 L Chloride Carbon Dioxide BUN Creatinine Glucose POC Glucose 64 L Lactic Acid Calcium 7.4 L Phosphorus Magnesium Direct Bilirubin Alkaline Phosphatase 566 H Troponin T NT-Pro-B Natriuret Pep Total Protein 5.3 L D Albumin 1.9 L HDL Cholesterol Urine pH Urine WBC (Auto) Urine Creatinine Crossmatch 05/28/20 05/29/20 05/29/20 04:35 17:01 18:54 WBC RBC Hgb Hct MCV MCH RDW Plt Count Lymph % (Auto) Desha % (Auto) Desha # (Auto) Seg Neutrophils % Seg Neuts % (Manual) Lymphocytes % (Manual) Monocytes % (Manual) Eosinophils % (Manual) Seg Neutrophils # Seg Neutrophils # Man Lymphocytes # (Manual) Monocytes # (Manual) Eosinophils # (Manual) Basophils # (Manual) PT INR APTT Sodium Potassium Chloride Carbon Dioxide BUN Creatinine 0.7 L Glucose POC Glucose 57 L 135 H Lactic Acid Calcium 7.7 L Phosphorus Magnesium Direct Bilirubin Alkaline Phosphatase Troponin T NT-Pro-B Natriuret Pep Total Protein Albumin HDL Cholesterol Urine pH Urine WBC (Auto) Urine Creatinine Crossmatch 05/30/20 05/30/20 05/30/20 05:42 11:30 23:28 WBC RBC Hgb Hct MCV MCH RDW Plt Count Lymph % (Auto) Desha % (Auto) Desha # (Auto) Seg Neutrophils % Seg Neuts % (Manual) Lymphocytes % (Manual) Monocytes % (Manual) Eosinophils % (Manual) Seg Neutrophils # Seg Neutrophils # Man Lymphocytes # (Manual) Monocytes # (Manual) Eosinophils # (Manual) Basophils # (Manual) PT INR APTT Sodium Potassium 3.4 L Chloride Carbon Dioxide BUN 6 L Creatinine 0.6 L Glucose 105 H POC Glucose 51 L 55 L Lactic Acid Calcium 7.5 L Phosphorus 1.80 L Magnesium Direct Bilirubin Alkaline Phosphatase Troponin T NT-Pro-B Natriuret Pep Total Protein Albumin HDL Cholesterol Urine pH Urine WBC (Auto) Urine Creatinine Crossmatch 05/31/20 05/31/20 06/04/20 05:37 11:49 18:35 WBC RBC Hgb Hct MCV MCH RDW Plt Count Lymph % (Auto) Desha % (Auto) Desha # (Auto) Seg Neutrophils % Seg Neuts % (Manual) Lymphocytes % (Manual) Monocytes % (Manual) Eosinophils % (Manual) Seg Neutrophils # Seg Neutrophils # Man Lymphocytes # (Manual) Monocytes # (Manual) Eosinophils # (Manual) Basophils # (Manual) PT INR APTT Sodium 136 L Potassium Chloride Carbon Dioxide BUN 6 L Creatinine 0.6 L Glucose POC Glucose 115 H 141 H Lactic Acid Calcium 7.5 L Phosphorus Magnesium Direct Bilirubin Alkaline Phosphatase Troponin T NT-Pro-B Natriuret Pep Total Protein Albumin HDL Cholesterol Urine pH Urine WBC (Auto) Urine Creatinine Crossmatch 06/05/20 06/05/20 06/05/20 07:43 10:42 11:35 WBC 20.4 H RBC 3.08 L Hgb 7.6 L Hct 23.5 L MCV 76 L MCH 25 L RDW 26.1 H Plt Count Lymph % (Auto) Desha % (Auto) Desha # (Auto) Seg Neutrophils % Seg Neuts % (Manual) 82.0 H Lymphocytes % (Manual) 9.0 L Monocytes % (Manual) Eosinophils % (Manual) Seg Neutrophils # Seg Neutrophils # Man 16.7 H Lymphocytes # (Manual) Monocytes # (Manual) 1.0 H Eosinophils # (Manual) Basophils # (Manual) 67.7 H PT INR APTT Sodium Potassium Chloride Carbon Dioxide BUN 8 L Creatinine 0.5 L Glucose POC Glucose 131 H Lactic Acid Calcium 7.2 L Phosphorus Magnesium Direct Bilirubin Alkaline Phosphatase Troponin T NT-Pro-B Natriuret Pep Total Protein Albumin HDL Cholesterol Urine pH Urine WBC (Auto) Urine Creatinine Crossmatch 06/05/20 06/06/20 06/06/20 16:29 12:42 22:45 WBC 13.9 H RBC 2.61 L Hgb 6.7 L 6.8 L Hct 19.8 L* 21.0 L MCV 76 L MCH 26 L RDW 25.8 H Plt Count Lymph % (Auto) Desha % (Auto) Desha # (Auto) Seg Neutrophils % Seg Neuts % (Manual) Lymphocytes % (Manual) Monocytes % (Manual) Eosinophils % (Manual) Seg Neutrophils # Seg Neutrophils # Man Lymphocytes # (Manual) Monocytes # (Manual) Eosinophils # (Manual) Basophils # (Manual) PT INR APTT Sodium Potassium Chloride Carbon Dioxide BUN Creatinine Glucose POC Glucose 118 H Lactic Acid Calcium Phosphorus Magnesium Direct Bilirubin Alkaline Phosphatase Troponin T NT-Pro-B Natriuret Pep Total Protein Albumin HDL Cholesterol Urine pH Urine WBC (Auto) Urine Creatinine Crossmatch 06/07/20 06/07/20 06/07/20 05:19 06:48 16:00 WBC RBC Hgb 6.4 L 8.7 L Hct 19.5 L* 25.5 L D MCV MCH RDW Plt Count Lymph % (Auto) Desha % (Auto) Desha # (Auto) Seg Neutrophils % Seg Neuts % (Manual) Lymphocytes % (Manual) Monocytes % (Manual) Eosinophils % (Manual) Seg Neutrophils # Seg Neutrophils # Man Lymphocytes # (Manual) Monocytes # (Manual) Eosinophils # (Manual) Basophils # (Manual) PT INR APTT Sodium Potassium Chloride Carbon Dioxide BUN Creatinine Glucose POC Glucose Lactic Acid Calcium Phosphorus Magnesium Direct Bilirubin Alkaline Phosphatase Troponin T NT-Pro-B Natriuret Pep Total Protein Albumin HDL Cholesterol Urine pH Urine WBC (Auto) Urine Creatinine Crossmatch See Detail 06/07/20 06/08/20 06/08/20 22:50 05:34 05:34 WBC 13.6 H RBC 3.55 L Hgb 9.5 L 9.5 L Hct 29.1 L 28.5 L MCV 80 L MCH 27 L RDW 22.4 H Plt Count Lymph % (Auto) Desha % (Auto) Desha # (Auto) Seg Neutrophils % Seg Neuts % (Manual) 93.0 H Lymphocytes % (Manual) 3.0 L Monocytes % (Manual) Eosinophils % (Manual) Seg Neutrophils # Seg Neutrophils # Man 12.6 H Lymphocytes # (Manual) 0.4 L Monocytes # (Manual) Eosinophils # (Manual) Basophils # (Manual) PT INR APTT Sodium Potassium 3.4 L Chloride Carbon Dioxide BUN 8 L Creatinine 0.5 L Glucose POC Glucose Lactic Acid Calcium 7.3 L Phosphorus Magnesium Direct Bilirubin Alkaline Phosphatase Troponin T NT-Pro-B Natriuret Pep Total Protein Albumin HDL Cholesterol Urine pH Urine WBC (Auto) Urine Creatinine Crossmatch 06/08/20 06/09/20 06/10/20 12:05 12:22 05:12 WBC RBC 3.19 L Hgb 8.7 L Hct 25.6 L MCV 80 L MCH 27 L RDW 22.7 H Plt Count Lymph % (Auto) Desha % (Auto) 10.4 H Desha # (Auto) Seg Neutrophils % Seg Neuts % (Manual) Lymphocytes % (Manual) Monocytes % (Manual) Eosinophils % (Manual) Seg Neutrophils # Seg Neutrophils # Man Lymphocytes # (Manual) Monocytes # (Manual) Eosinophils # (Manual) Basophils # (Manual) PT INR APTT Sodium Potassium Chloride Carbon Dioxide BUN Creatinine Glucose POC Glucose 121 H 118 H Lactic Acid Calcium Phosphorus Magnesium Direct Bilirubin Alkaline Phosphatase Troponin T NT-Pro-B Natriuret Pep Total Protein Albumin HDL Cholesterol Urine pH Urine WBC (Auto) Urine Creatinine Crossmatch 06/10/20 06/10/20 06/10/20 05:12 11:52 22:01 WBC RBC Hgb Hct MCV MCH RDW Plt Count Lymph % (Auto) Desha % (Auto) Desha # (Auto) Seg Neutrophils % Seg Neuts % (Manual) Lymphocytes % (Manual) Monocytes % (Manual) Eosinophils % (Manual) Seg Neutrophils # Seg Neutrophils # Man Lymphocytes # (Manual) Monocytes # (Manual) Eosinophils # (Manual) Basophils # (Manual) PT INR APTT Sodium Potassium 3.3 L Chloride Carbon Dioxide 33 H BUN 7 L Creatinine 0.4 L Glucose POC Glucose 109 H 68 L Lactic Acid Calcium 7.1 L Phosphorus Magnesium Direct Bilirubin Alkaline Phosphatase Troponin T NT-Pro-B Natriuret Pep Total Protein Albumin HDL Cholesterol Urine pH Urine WBC (Auto) Urine Creatinine Crossmatch 06/10/20 06/11/20 06/11/20 23:15 06:16 11:12 WBC RBC Hgb 10.0 L Hct 30.4 L MCV 81 L MCH 27 L RDW 22.8 H Plt Count Lymph % (Auto) Desha % (Auto) Desha # (Auto) Seg Neutrophils % Seg Neuts % (Manual) Lymphocytes % (Manual) Monocytes % (Manual) Eosinophils % (Manual) Seg Neutrophils # Seg Neutrophils # Man Lymphocytes # (Manual) Monocytes # (Manual) Eosinophils # (Manual) Basophils # (Manual) PT INR APTT Sodium Potassium Chloride Carbon Dioxide BUN Creatinine Glucose POC Glucose 112 H 120 H Lactic Acid Calcium Phosphorus Magnesium Direct Bilirubin Alkaline Phosphatase Troponin T NT-Pro-B Natriuret Pep Total Protein Albumin HDL Cholesterol Urine pH Urine WBC (Auto) Urine Creatinine Crossmatch 06/11/20 06/12/20 06/12/20 16:19 05:30 05:30 WBC RBC 3.63 L Hgb 9.6 L Hct 29.3 L MCV 81 L MCH 27 L RDW 23.4 H Plt Count Lymph % (Auto) Desha % (Auto) Desha # (Auto) Seg Neutrophils % Seg Neuts % (Manual) Lymphocytes % (Manual) Monocytes % (Manual) Eosinophils % (Manual) Seg Neutrophils # Seg Neutrophils # Man Lymphocytes # (Manual) Monocytes # (Manual) Eosinophils # (Manual) Basophils # (Manual) PT INR APTT Sodium Potassium Chloride Carbon Dioxide 31 H BUN 7 L Creatinine 0.5 L Glucose POC Glucose 68 L Lactic Acid Calcium 7.3 L Phosphorus Magnesium Direct Bilirubin Alkaline Phosphatase Troponin T NT-Pro-B Natriuret Pep Total Protein Albumin HDL Cholesterol Urine pH Urine WBC (Auto) Urine Creatinine Crossmatch 06/12/20 06/13/20 06/13/20 15:49 07:32 16:49 WBC RBC Hgb Hct MCV MCH RDW Plt Count Lymph % (Auto) Desha % (Auto) Desha # (Auto) Seg Neutrophils % Seg Neuts % (Manual) Lymphocytes % (Manual) Monocytes % (Manual) Eosinophils % (Manual) Seg Neutrophils # Seg Neutrophils # Man Lymphocytes # (Manual) Monocytes # (Manual) Eosinophils # (Manual) Basophils # (Manual) PT INR APTT Sodium Potassium Chloride Carbon Dioxide BUN Creatinine Glucose POC Glucose 112 H 68 L 112 H Lactic Acid Calcium Phosphorus Magnesium Direct Bilirubin Alkaline Phosphatase Troponin T NT-Pro-B Natriuret Pep Total Protein Albumin HDL Cholesterol Urine pH Urine WBC (Auto) Urine Creatinine Crossmatch Allied health notes reviewed: nursing
--- NOTE | 2020-06-14 11:39 | Progress Note ---
Assessment and Plan Assessment and plan: Sepsis Acute cystitis/UTI Cholecystitis. Inflammation seen on CT. Cholecystostomy tube in place. Metabolic acidosis Toxic metabolic encephalopathy Acute kidney injury/acute renal failure Hospital course: 05/23/2020 -Septic shock likely due to UTI, patient is on IV cefepime, IV fluid and pressor support. Critical care consulted -Acute renal failure, improved with IV fluids, nephrology consulted 05/24/2020 -Admitted for septic shock due to UTI, patient is on IV cefepime, IV fluids, pressor support, ID consulted. -Acute renal failure IV fluids and nephrology consult -Patient is saturating 100% on room air -Patient was alert 05/25/2020 -Patient is on IV cefepime and ID increase the dose. -Acute renal failure is improving -Patient had history of cholecystostomy tube placement and was seen by general surgery and order imaging study. -Patient is still on pressors for low blood pressure 05/27/2020 -Patient was admitted for septic shock and he is doing well. Continue with cefepime while he is here and can be discharged with po Levaquin to finish a total of 7 days course of antibiotics. He was evaluated by general surgery and imaging was done and no further work-up is needed. GI also saw the patient. Patient is stable for discharge Case management is working for placement. Patient's family does not want him to go back to the facility where he came from. 05/28/2020 patient is alert today able to make needs known at this particular time. Recently admitted for septic shock. Currently treated with cefepime while in house. Awaiting placement will change to Levaquin to complete 6 more days of antibiotics. Stable for discharge awaiting placement Case management. 05/29/2020. Patient doing well able to make all needs known no new concerns. Patient wants to know that he was doing well. No more in shock. Awaiting placement. Patient tolerated change to Levaquin well. Patient is not eating solid foods that well will change to pured diet and see how effective that may be. 05/30/2020. Patient resting comfortably no acute distress. Hospital course uncomplicated over p.m. Patient doing better with change in the consistency of diet. Currently awaiting placement. 05/31/2020. Etiology of acute kidney injury secondary to vasomotor nephropathy/ATN in the setting of sepsis/septic shock. CT abdomen negative for hydronephrosis. ID recommended cefepime 2 g every 8 hours with completion total of 7 days. Case management working on placement. 06/01/2020. Continue IV antibiotics per ID recommendations. Case management still working on placement. History Interval history: No new issues overnight Hospitalist Physical - Constitutional Vitals: Temp Pulse Resp BP Pulse Ox 99.4 F 84 18 122/61 94 06/13/20 23:34 06/14/20 08:31 06/14/20 03:32 06/14/20 08:31 06/14/20 08:31 General appearance: Present: no acute distress, well-nourished - EENT Eyes: Present: PERRL, EOM intact ENT: hearing intact, clear oral mucosa, dentition normal - Neck Neck: Present: supple, normal ROM - Respiratory Respiratory effort: normal Respiratory: bilateral: CTA - Cardiovascular Rhythm: regular Heart Sounds: Present: S1 & S2. Absent: gallop, rub - Extremities Extremities: no ischemia, No edema, Full ROM - Abdominal General gastrointestinal: soft, non-tender, non-distended, normal bowel sounds - Integumentary Integumentary: Present: clear, warm, dry - Neurologic Neurologic: CNII-XII intact, moves all extremities HEART Score - HEART Score Troponin: Troponin T 0.271 ng/mL (0.00-0.029) H* 05/22/20 09:10 Results - Labs CBC & Chem 7: 06/12/20 05:30 06/12/20 05:30 Labs: Laboratory Last Values WBC 9.2 K/mm3 (4.5-11.0) 06/12/20 05:30 RBC 3.63 M/mm3 (3.65-5.03) L 06/12/20 05:30 Hgb 9.6 gm/dl (11.8-15.2) L 06/12/20 05:30 Hct 29.3 % (35.5-45.6) L 06/12/20 05:30 MCV 81 fl (84-94) L 06/12/20 05:30 MCH 27 pg (28-32) L 06/12/20 05:30 MCHC 33 % (32-34) 06/12/20 05:30 RDW 23.4 % (13.2-15.2) H 06/12/20 05:30 Plt Count 394 K/mm3 (140-440) 06/12/20 05:30 Lymph % (Auto) 20.6 % (13.4-35.0) 06/10/20 05:12 [place] % (Auto) 10.4 % (0.0-7.3) H 06/10/20 05:12 Eos % (Auto) 2.9 % (0.0-4.3) 06/10/20 05:12 Baso % (Auto) 1.2 % (0.0-1.8) 06/10/20 05:12 Lymph # (Auto) 1.7 K/mm3 (1.2-5.4) 06/10/20 05:12 [place] # (Auto) 0.8 K/mm3 (0.0-0.8) 06/10/20 05:12 Eos # (Auto) 0.2 K/mm3 (0.0-0.4) 06/10/20 05:12 Baso # (Auto) 0.1 K/mm3 (0.0-0.1) 06/10/20 05:12 Add Manual Diff Complete 06/08/20 05:34 Total Counted 100 06/08/20 05:34 Seg Neutrophils % 64.9 % (40.0-70.0) 06/10/20 05:12 Seg Neuts % (Manual) 93.0 % (40.0-70.0) H 06/08/20 05:34 Band Neutrophils % 2.0 % 06/05/20 10:42 Lymphocytes % (Manual) 3.0 % (13.4-35.0) L 06/08/20 05:34 Monocytes % (Manual) 1.0 % (0.0-7.3) 06/08/20 05:34 Eosinophils % (Manual) 2.0 % (0.0-4.3) 06/08/20 05:34 Metamyelocytes % 1.0 % 06/05/20 10:42 Myelocytes % 1.0 % 06/08/20 05:34 Promyelocytes % 0 % 05/25/20 09:34 Nucleated RBC % Not Reportable 06/08/20 05:34 Seg Neutrophils # 5.2 K/mm3 (1.8-7.7) 06/10/20 05:12 Seg Neutrophils # Man 12.6 K/mm3 (1.8-7.7) H 06/08/20 05:34 Band Neutrophils # 0.0 K/mm3 06/08/20 05:34 Lymphocytes # (Manual) 0.4 K/mm3 (1.2-5.4) L 06/08/20 05:34 Abs React Lymphs (Man) 0.0 K/mm3 06/08/20 05:34 Monocytes # (Manual) 0.1 K/mm3 (0.0-0.8) 06/08/20 05:34 Eosinophils # (Manual) 0.3 K/mm3 (0.0-0.4) 06/08/20 05:34 Basophils # (Manual) 0.0 K/mm3 (0.0-0.1) 06/08/20 05:34 Metamyelocytes # 0.0 K/mm3 06/08/20 05:34 Myelocytes # 0.1 K/mm3 06/08/20 05:34 Promyelocytes # 0.0 K/mm3 06/08/20 05:34 Blast Cells # 0.0 K/mm3 06/08/20 05:34 WBC Morphology Not Reportable 06/08/20 05:34 Hypersegmented Neuts Not Reportable 06/08/20 05:34 Hyposegmented Neuts Not Reportable 06/08/20 05:34 Hypogranular Neuts Not Reportable 06/08/20 05:34 Smudge Cells Not Reportable 06/08/20 05:34 Toxic Granulation Not Reportable 06/08/20 05:34 Toxic Vacuolation Not Reportable 06/08/20 05:34 Dohle Bodies Not Reportable 06/08/20 05:34 Pelger-Huet Anomaly Not Reportable 06/08/20 05:34 Lynne Rods Not Reportable 06/08/20 05:34 Platelet Estimate Consistent w auto 06/08/20 05:34 Clumped Platelets Not Reportable 06/08/20 05:34 Plt Clumps, EDTA Not Reportable 06/08/20 05:34 Large Platelets Not Reportable 06/08/20 05:34 Giant Platelets Not Reportable 06/08/20 05:34 Platelet Satelliting Not Reportable 06/08/20 05:34 Plt Morphology Comment Not Reportable 06/08/20 05:34 RBC Morphology Not Reportable 06/08/20 05:34 Dimorphic RBCs Not Reportable 06/08/20 05:34 Polychromasia Not Reportable 06/08/20 05:34 Hypochromasia Not Reportable 06/08/20 05:34 Poikilocytosis Not Reportable 06/08/20 05:34 Anisocytosis 1+ 06/08/20 05:34 Microcytosis Not Reportable 06/08/20 05:34 Macrocytosis Not Reportable 06/08/20 05:34 Spherocytes Not Reportable 06/08/20 05:34 Pappenheimer Bodies Not Reportable 06/08/20 05:34 Sickle Cells Not Reportable 06/08/20 05:34 Target Cells Not Reportable 06/08/20 05:34 Tear Drop Cells Not Reportable 06/08/20 05:34 Ovalocytes Few 06/08/20 05:34 Helmet Cells Not Reportable 06/08/20 05:34 [place] Bodies Not Reportable 06/08/20 05:34 [place] Rings Not Reportable 06/08/20 05:34 [place] Cells Not Reportable 06/08/20 05:34 Bite Cells Not Reportable 06/08/20 05:34 Crenated Cell Not Reportable 06/08/20 05:34 Elliptocytes Not Reportable 06/08/20 05:34 Acanthocytes (Spur) Not Reportable 06/08/20 05:34 Rouleaux Not Reportable 06/08/20 05:34 Hemoglobin C Crystals Not Reportable 06/08/20 05:34 Schistocytes Rare 06/08/20 05:34 Malaria parasites Not Reportable 06/08/20 05:34 Chandrakant Bodies Not Reportable 06/08/20 05:34 Hem Pathologist Commnt No 06/08/20 05:34 PT 15.5 Sec. (12.2-14.9) H 05/22/20 09:10 INR 1.25 (0.87-1.13) H 05/22/20 09:10 APTT 47.6 Sec. (24.2-36.6) H 05/22/20 09:10 Sodium 140 mmol/L (137-145) 06/12/20 05:30 Potassium 3.8 mmol/L (3.6-5.0) 06/12/20 05:30 Chloride 102.5 mmol/L (98-107) 06/12/20 05:30 Carbon Dioxide 31 mmol/L (22-30) H 06/12/20 05:30 Anion Gap 10 mmol/L 06/12/20 05:30 BUN 7 mg/dL (9-20) L 06/12/20 05:30 Creatinine 0.5 mg/dL (0.8-1.3) L 06/12/20 05:30 Estimated GFR > 60 ml/min 06/12/20 05:30 BUN/Creatinine Ratio 14 % 06/12/20 05:30 Glucose 96 mg/dL (75-100) 06/12/20 05:30 POC Glucose 86 mg/dL (70-105) 06/13/20 21:21 Lactic Acid 0.90 mmol/L (0.7-2.0) 05/22/20 23:25 Calcium 7.3 mg/dL (8.4-10.2) L 06/12/20 05:30 Phosphorus 3.20 mg/dL (2.5-4.5) D 05/31/20 05:37 Magnesium 2.30 mg/dL (1.7-2.3) 05/25/20 05:00 Total Bilirubin 0.30 mg/dL (0.1-1.2) 05/27/20 00:45 Direct Bilirubin < 0.2 mg/dL (0-0.2) 05/27/20 00:45 Indirect Bilirubin 0.1 mg/dL 05/27/20 00:45 AST 17 units/L (5-40) 05/27/20 00:45 ALT 9 units/L (7-56) 05/27/20 00:45 Alkaline Phosphatase 566 units/L (35-129) H 05/27/20 00:45 Troponin T 0.271 ng/mL (0.00-0.029) H* 05/22/20 09:10 NT-Pro-B Natriuret Pep 1448 pg/mL (0-900) H 05/22/20 09:10 Total Protein 5.3 g/dL (6.3-8.2) L D 05/27/20 00:45 Albumin 1.9 g/dL (3.9-5) L 05/27/20 00:45 Albumin/Globulin Ratio 0.6 % 05/27/20 00:45 Triglycerides 143 mg/dL (2-149) 05/22/20 09:10 Cholesterol 118 mg/dL (50-199) 05/22/20 09:10 LDL Cholesterol Direct 55 mg/dL (50-130) 05/22/20 09:10 HDL Cholesterol 39 mg/dL (40-59) L 05/22/20 09:10 Cholesterol/HDL Ratio 3.02 % 05/22/20 09:10 Urine Color Mckenzie (Yellow) 05/22/20 09:32 Urine Turbidity Cloudy (Clear) 05/22/20 09:32 Urine pH 8.0 (5.0-7.0) H 05/22/20 09:32 Ur Specific [place] 1.010 (1.003-1.030) 05/22/20 09:32 Urine Protein >500 mg/dL (Negative) 05/22/20 09:32 Urine Glucose (UA) Neg mg/dL (Negative) 05/22/20 09:32 Urine Ketones Neg mg/dL (Negative) 05/22/20 09:32 Urine Blood Sm (Negative) 05/22/20 09:32 Urine Nitrite Neg (Negative) 05/22/20 09:32 Urine Bilirubin Neg (Negative) 05/22/20 09:32 Urine Urobilinogen < 2.0 mg/dL (<2.0) 05/22/20 09:32 Ur Leukocyte Esterase Mod (Negative) 05/22/20 09:32 Urine WBC (Auto) > 182.0 /HPF (0.0-6.0) H 05/22/20 09:32 Urine RBC (Auto) 9.0 /HPF (0.0-6.0) 05/22/20 09:32 U Epithel Cells (Auto) 1.0 /HPF (0-13.0) 05/22/20 09:32 Urine WBC Clumps 2+ /HPF 05/22/20 09:32 Urine Mucus Few /HPF 05/22/20 09:32 Urine Creatinine 48.1 mg/dL (0.1-20.0) H 05/22/20 09:49 Urine Sodium 130 mmol/L 05/22/20 09:49 Coronavirus (PCR) Negative (Negative) 06/02/20 Unknown Blood Type A POSITIVE 06/07/20 06:48 Antibody Screen Negative 06/07/20 06:48 Crossmatch See Detail 06/07/20 06:48 - Diagnostic Impressions Diagnostic Impressions: Echocardiogram 05/22/20 14:25 Transthoracic Echocardiogram Indication: Cardiomyopathy BP: 97/48 HR: 84 Conclusions *Global left ventricular systolic function is normal. *The estimated ejection fraction is 55-60%. *There is no evidence of aortic regurgitation. *There is no evidence of mitral regurgitation. *There is mild tricuspid regurgitation. *The right ventricular systolic pressure is calculated at 31 mmHg. Findings Left Ventricle: The left ventricular chamber size is normal. Global left ventricular wall motion and contractility are within normal limits. Global left ventricular systolic function is normal. The estimated ejection fraction is 55-60%. Abnormal left ventricular diastolic filling is observed, consistent with impaired relaxation. Right Ventricle: The right ventricle is not well visualized. Aortic Valve: Mild aortic leaflet calcification is visualized. There is no evidence of aortic regurgitation. Mitral Valve: The mitral valve leaflets are mildly thickened. There is no evidence of mitral regurgitation. Tricuspid Valve: The tricuspid valve leaflets are normal. There is mild tricuspid regurgitation. The right ventricular systolic pressure is calculated at 31 mmHg. Pulmonic Valve: The pulmonic valve is not well visualized. Pericardium: There is no pericardial effusion. Aorta: The aorta appears normal. Venous: The inferior vena cava is not visualized. Measurements Chambers 2D Name Value Normal Range IVSd (2D) 0.93 cm (0.6 - 1.1) LVPWd (2D) 0.88 cm (0.6 - 1.1) LVIDd (2D) 4.14 cm (3.7 - 5.6) LVIDs (2D) 2.84 cm (2 - 3.8) LV FS (2D) 31.49 % - EF Teichholz (2D) 59.83 % - Ao root diameter (2D) 2.95 cm (2 - 3.7) Volumes/Mass Name Value Normal Range LA ESV SP 4CH (A/L) 18.27 ml - LA ESV SP 2CH (A/L) 16.69 ml - LA ESV BP (A/L) 20.49 ml - LA ESV BP (A/L) index 9.95 ml/m2 - LA ESV SP 4CH (MOD) 16.89 ml - LA ESV SP 2CH (MOD) 16.63 ml - LA ESV BP (MOD) 19.39 ml - LA ESV BP (MOD) index 9.41 ml/m2 - Diastolic/Systolic Function Name Value Normal Range MV E-wave Vmax 0.69 m/sec - MV deceleration time 231.55 msec - MV A-wave Vmax 0.85 m/sec - MV E:A ratio 0.81 ratio - Aortic Valve Name Value Normal Range AV Vmax 1.43 m/sec - AV VTI 26.37 cm - AV peak gradient 8.16 mmHg - AV mean gradient 5.15 mmHg - LVOT diameter 2.39 cm - LVOT Vmax 0.94 m/sec - LVOT VTI 17.92 cm - LVOT peak gradient 3.5 mmHg - LVOT mean gradient 2.07 mmHg - SV LVOT 80.13 ml - NURIA (continuity Vmax) 2.93 cm2 - NURIA (continuity VTI) 3.04 cm2 - Tricuspid Valve Name Value Normal Range TR Vmax 2.63 m/sec - TR peak gradient 28 mmHg - RAP 3 mmHg - RVSP 31 mmHg - Pulmonic Valve/Qp:Qs Name Value Normal Range PV acceleration time 95.15 msec - Engel/IV: Voiding Method Indwelling Catheter Active Medications - Current Medications Current Medications: Generic Name Dose Route Start Last Admin Trade Name Freq PRN Reason Stop Dose Admin Acetaminophen 650 mg 05/22/20 12:31 06/12/20 21:11 Acetaminophen 325 Mg Tab PO 650 mg Q6H PRN Administration Pain, Mild (1-3) Albuterol 2.5 mg 05/22/20 12:14 Albuterol 2.5 Mg/3 Ml Nebu Q3HRT PRN Shortness Of Breath Aspirin 81 mg 05/23/20 10:00 06/13/20 09:07 Aspirin 81 Mg Tab Chew PO 81 mg QDAY VANE Administration Atorvastatin Calcium 80 mg 05/22/20 22:00 06/13/20 22:50 Atorvastatin 40 Mg Tab PO 80 mg QHS VANE Administration Dextrose 25 ml 05/25/20 00:13 05/30/20 11:51 Dextrose 50% In Water (25gm) 50 Ml Syringe IV 20 ml Q30MIN PRN Administration Hypoglycemia Protocol Diphenhydramine HCl 25 mg 06/13/20 01:50 06/13/20 01:59 Diphenhydramine 50 Mg/Ml Vial IV 25 mg Q6H PRN Administration Itching Docusate Sodium 100 mg 06/06/20 11:00 06/13/20 22:50 Docusate Sodium 100 Mg/10 Ml Oral Liqd PO 100 mg BID VANE Administration Hydromorphone HCl 0.25 mg 05/22/20 12:31 06/09/20 19:42 Hydromorphone 1 Mg/1 Ml Inj IV 0.25 mg Q4H PRN Administration Pain, Moderate (4-6) Pantoprazole Sodium 40 mg 06/12/20 10:00 06/13/20 09:07 Pantoprazole 40 Mg Tab PO 40 mg DAILY VANE Administration Polyethylene Glycol 17 gm 06/06/20 11:00 Polyethylene Glycol 3350 17 Gm Powder PO QDAY PRN Constipation Potassium Chloride 20 meq 06/10/20 10:00 06/13/20 09:07 Potassium Chloride Er 20 Meq Tab PO 20 meq QDAY VANE Administration Sodium Chloride 10 ml 05/22/20 22:00 06/13/20 22:50 Sodium Chloride 0.9% 10 Ml Flush Syringe IV 10 ml BID VANE Administration Sodium Chloride 10 ml 05/22/20 12:14 06/13/20 01:59 Sodium Chloride 0.9% 10 Ml Flush Syringe IV 10 ml PRN PRN Administration LINE FLUSH Nutrition/Malnutrition Assess - Dietary Evaluation Nutrition/Malnutrition Findings: Nutrition Notes Start: 05/27/20 11:22 Freq: Status: Active Protocol: Document 06/13/20 13:21 (Rec: 06/13/20 13:27 [email or web address]) Nutrition Notes Initial or Follow up Brief Note Current Diagnosis Coronary Artery Disease, Decubitus(Pressure Ulcer), Sepsis,Hypertension, Respiratory Failure, Hyperlipidemia Other Pertinent Diagnosis Metabolic Encephalopathy, s/p Cholecystostomy, Dementia, UTI Current Diet Pureed Subjective/Other Information FU for intakes. Pt stated he didn't want to talk and wanted to rest. Nutrition Intervention Follow-Up By: 06/14/20 Additional Comments F/U for PO intake, ONS tolerance, POC
[2020-06-14] MEDS: POTASSIUM CHLORIDE ER 20 MEQ TAB PO SCH (11:40)
[2020-06-14] MEDS: PANTOPRAZOLE 40 MG TAB PO SCH (11:40)
[2020-06-14] MEDS: DOCUSATE SODIUM 100 MG/10 ML ORAL LIQD PO SCH ×2 (11:40→22:28)
[2020-06-14] MEDS: ACETAMINOPHEN 325 MG TAB PO PRN (11:40)
[2020-06-14] MEDS: ASPIRIN 81 MG TAB CHEW PO SCH (11:40)
[2020-06-15] MEDS: ACETAMINOPHEN 325 MG TAB PO PRN ×2 (06:28→11:18)
[2020-06-15 08:44] VITALS: BP 108/64
[2020-06-15] MEDS: POTASSIUM CHLORIDE ER 20 MEQ TAB PO SCH (09:36)
[2020-06-15] MEDS: ASPIRIN 81 MG TAB CHEW PO SCH (09:36)
[2020-06-15] MEDS: PANTOPRAZOLE 40 MG TAB PO SCH (09:37)
[2020-06-15] MEDS: DOCUSATE SODIUM 100 MG/10 ML ORAL LIQD PO SCH (09:37)
[2020-06-15] MEDS: HYDROmorphone 1 MG/1 ML INJ IV PRN ×2 (09:55→14:40)
--- NOTE | 2020-06-15 09:59 | Discharge Summary ---
Providers - Providers Date of Admission: 05/22/20 12:14 Date of discharge: 06/15/20 Attending physician: SANGEETHA ROTH 05/22/20 12:14 Consult to Physician [CONS] Routine Comment: Consulting Provider: KARLENE WATSON Physician Instructions: Reason For Exam: sepsis 05/22/20 14:25 Consult to Physician [CONS] Routine Comment: Consulting Provider: ZELALEM SIMPSON Physician Instructions: Reason For Exam: EBENEZER 05/24/20 09:40 Consult to Physician [CONS] Routine Comment: Consulting Provider: SURESH CONNORS Physician Instructions: Reason For Exam: sepsis 05/24/20 14:23 Consult to Physician [CONS] Routine Comment: Consulting Provider: ARIANNA PEACE Physician Instructions: Reason For Exam: abdominal pain 05/25/20 10:29 Occupational Therapy Evaluate and Treat [CONS] Routine Comment: Reason For Exam: Debility Physical Therapy Evaluation and Treat [CONS] Routine Comment: Reason For Exam: Debility 05/25/20 12:17 Speech Therapy Evaluation and Treat [CONS] Routine Reason For Exam: oropharyngeal dysphagia 05/25/20 15:41 Consult to Physician [CONS] Routine Comment: Consulting Provider: CRYSTAL BRISCOE Physician Instructions: Reason For Exam: possible choledoco, MRCP nondiagnostis 05/26/20 01:33 Consult to Wound/ET Nurse [CONS] Routine Reason For Exam: wound eval 05/27/20 09:37 Consult to Dietitian/Nutrition [CONS] Routine Physician Instructions: Reason For Exam: Reason for Consult: Malnutrition 06/03/20 08:00 Consult to Wound/ET Nurse [CONS] Urgent Reason For Exam: wound eval 06/09/20 17:07 Consult to Case Management [CONS] Routine Services Needed at Discharge: Other Notified:: cm notified Additional Physician Instructions: hospice Primary care physician: NOE LYN Hospitalization Reason for admission: sepsis Condition: Stable Hospital course: The patient is a 69 YO male with history significant for HTN, 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 Patient was found to have suprapubic tenderness and temp of 101.4 F. In the ED patient was found to be hypotensive with a systolic blood pressure in the 80s and tachycardic. Labs significant for wbc 18, BUN 36, Creat 3.8 and Lactate 3.7. Patient was found to have UTI, septic shock, EBENEZER and toxic metabolic encephalopathy. Patient was admitted to ICU and initiated on sepsis protocol and initiated on IV pressor. --Sepsis with shock, status post empiric antibiotic and off pressors --UTI, treated with antibiotics --EBENEZER, vasomotor nephropathy and ATN in the setting of septic shock. CT abdomen negative for hydro --toxic metabolic encephalopathy, CT head without any acute process --Anemia, likely due to chronic disease --Cholecystitis, inflammation seen on CT, cholecystectomy tube in place on admission. Need further outpatient follow-up with general surgery --Hypokalemia, repleted --Hypophosphatemia, repleted --Hyponatremia, likely due to dehydration resolved --Elevated, troponin, likely NSTEMI type II in the setting of sepsis and EBENEZER. 2D echocardiogram with preserved EF --Urinary retention, likely due to BPH, continue Brewster catheter --h/o prior CVA, cont aspirin and statin for now. --Full code --Poor prognosis Hospital course: 05/23/2020 -Septic shock likely due to UTI, patient is on IV cefepime, IV fluid and pressor support. Critical care consulted -Acute renal failure, improved with IV fluids, nephrology consulted 05/24/2020 -Admitted for septic shock due to UTI, patient is on IV cefepime, IV fluids, pressor support, ID consulted. -Acute renal failure IV fluids and nephrology consult -Patient is saturating 100% on room air -Patient was alert 05/25/2020 -Patient is on IV cefepime and ID increase the dose. -Acute renal failure is improving -Patient had history of cholecystostomy tube placement and was seen by general surgery and order imaging study. -Patient is still on pressors for low blood pressure 05/27/2020 -Patient was admitted for septic shock and he is doing well. Continue with cefepime while he is here and can be discharged with po Levaquin to finish a total of 7 days course of antibiotics. He was evaluated by general surgery and imaging was done and no further work-up is needed. GI also saw the patient. Patient is stable for discharge Case management is working for placement. Patient's family does not want him to go back to the facility where he came from. 05/28/2020 patient is alert today able to make needs known at this particular time. Recently admitted for septic shock. Currently treated with cefepime while in house. Awaiting placement will change to Levaquin to complete 6 more days of antibiotics. Stable for discharge awaiting placement Case management. 05/29/2020. Patient doing well able to make all needs known no new concerns. Patient wants to know that he was doing well. No more in shock. Awaiting placement. Patient tolerated change to Levaquin well. Patient is not eating solid foods that well will change to pured diet and see how effective that may be. 05/30/2020. Patient resting comfortably no acute distress. Hospital course uncomplicated over p.m. Patient doing better with change in the consistency of diet. Currently awaiting placement. 05/31/2020. Etiology of acute kidney injury secondary to vasomotor nephropathy/ATN in the setting of sepsis/septic shock. CT abdomen negative for hydronephrosis. ID recommended cefepime 2 g every 8 hours with completion total of 7 days. Case management working on placement. 06/01/2020. Continue IV antibiotics per ID recommendations. Case management still working on placement. 06/02/20: Negative Covid test. Patient planned discharged to [facility] in stable condition with outpatient follow-up. Placement waiting on financial agreement with the residential. assurance services manager health care and family in agreement. 06/03: Discharge pending on placement 06/04: Pending placement 06/05: Pending placement. c/o abdominal pain today. noted to have high white count today, patient was treated with cefepime's for 7 days per ID recommendation. Will resume cefepime and reconsult GS, Monitor CBC. 06/06: repeat CT abdomen suggestive of possible cystitis - will treat with 3 days of rocephin and stop cefepime, d/c brewster. add stool softner. No further surgical intervention per GS. pending placement 06/07: H/H dropped, transfuse one unit PRBC - ordered stool for occult blood 06/08: placed back brewster today as patient developed urinary retention. h/h stable after transfusion. pending placement. d/c plavix and heparin, cont aspirin only for anemia. 06/09: h/h stable. discussed with daughter in details about his overall clinical condition. I recommended possible hospice care for the patient considering his underlying chronic conditions - CVA with bedbound state, chronic cholecystitis, recurrent UTI, chronic physical debility, chronic anemia. daughter is in agreement - will cont to follow. She will discuss with her brother about code status and will update us tomorrow. 06/10: Continue supportive care, awaiting placement. hospice and snf placement going. 06/11 no acute events overnight, lab results reviewed, repeat BMP in a.m., awaiting placement, pulmonary note reviewed 06/13 no new concerns today. Patient doing well. Awaiting placement labs reviewed Disposition: [id number] Final Discharge Diagnosis (Prints w/discharge instructions): Sepsis with shock, UTI, acute kidney injury, toxic metabolic encephalopathy, anemia, cholecystitis, hypokalemia, hypophosphatemia, hyponatremia, urinary retention type II NV - Discharge Diagnoses (1) Acute renal failure Status: Acute Qualifiers: Acute renal failure type: with acute tubular necrosis Qualified Code(s): N17.0 - Acute kidney failure with tubular necrosis (2) Cholecystostomy care Status: Acute (3) Septic shock Status: Acute (4) Toxic metabolic encephalopathy Status: Acute (5) UTI (urinary tract infection) Status: Acute Qualifiers: Encounter type: initial encounter (6) Abdominal pain Status: Acute (7) Acute cholecystitis Status: Acute (8) Anemia Status: Acute (9) CVA (cerebral vascular accident) Status: Acute (10) Hypertension Status: Acute (11) Hypoxia Status: Acute Core Measure Documentation - Palliative Care Palliative Care/ Comfort Measures: Not Applicable - Core Measures Any of the following diagnoses?: none Exam - Constitutional Vitals: Temp Pulse Resp BP Pulse Ox 98.6 F 83 12 108/64 93 06/15/20 08:43 06/15/20 08:43 06/15/20 08:43 06/15/20 08:43 06/15/20 08:43 General appearance: Present: no acute distress, well-nourished - EENT Eyes: Present: PERRL ENT: hearing intact, clear oral mucosa - Neck Neck: Present: supple, normal ROM - Respiratory Respiratory effort: normal Respiratory: bilateral: CTA - Cardiovascular Heart Sounds: Present: S1 & S2. Absent: rub, click - Extremities Extremities: pulses symmetrical, No edema Peripheral Pulses: within normal limits - Abdominal General gastrointestinal: Present: soft, non-tender, non-distended, normal bowel sounds Male genitourinary: Present: normal - Integumentary Integumentary: Present: clear, warm, dry - Musculoskeletal Musculoskeletal: gait normal, strength equal bilaterally - Psychiatric Psychiatric: appropriate mood/affect, intact judgment & insight - Neurologic Neurologic: CNII-XII intact, moves all extremities Plan Activity: advance as tolerated Weight Bearing Status: Weight Bear as Tolerated Diet: regular Follow up with: ARIANNA PEACE DO [Staff Physician] - 7 Days MINA DIANE MD [Staff Physician] - 7 Days Prescriptions: levoFLOXacin [Levaquin] 750 mg PO QDAY #5 tablet
--- NOTE | 2020-06-15 18:50 | Progress Note ---
Assessment and Plan Patient sleeping on room air.O2 saturation 93% . No acute respiratory distress.No change in general condition. Patients HGB 6.4.Patient received blood transfusion.Patients HGB came up to 9.6. Patient afebrile. No leukocytosis. Chest xray done 05/22/20 reported no acute findings. Patient is on Albuterol inhaler, Protonix. I was told patient going to care home to day. - Patient Problems (1) Hypoxia Status: Acute Plan to address problem: Improved. O2 saturation 93% on room air. (2) Septic shock Status: Acute Plan to address problem: Improved. Patient treated with cefepime and ceftriaxone. (3) Acute renal failure Status: Acute Qualifiers: Acute renal failure type: with acute tubular necrosis Qualified Code(s): N17.0 - Acute kidney failure with tubular necrosis Plan to address problem: Management as per nephrology. (4) Toxic metabolic encephalopathy Status: Acute Plan to address problem: Management as per primary care. (5) UTI (urinary tract infection) Status: Acute Qualifiers: Encounter type: initial encounter Plan to address problem: Patient was treated with cefepime and ceftriaxone (6) Acute cholecystitis Status: Acute Plan to address problem: S/P percutaneous cholecystotomy drain placement. Management as per gastroenterology. (7) CVA (cerebral vascular accident) Status: Acute Plan to address problem: Management as per primary care. (8) Hypertension Status: Acute Plan to address problem: Management as per primary care. (9) Anemia Status: Acute Plan to address problem: Received Blood transfusion. Patients recent HGB 9.6. Management as per primary care and hematology. Subjective Date of service: 06/15/20 Principal diagnosis: Septic shock; Metabolic Acidosis; Ac, Toxic metabolic encephalopathy; EBENEZER Interval history: Patient sleeping on room air.O2 saturation 93% . No acute respiratory di stress.No change in general condition. Patients HGB 6.4.Patient received blood transfusion.Patients HGB came up to 9.6. Patient afebrile. No leukocytosis. Chest xray done 05/22/20 reported no acute findings. Patient is on Albuterol inhaler, Protonix. I was told patient going to care home to day. Objective Vital Signs - 12hr 06/15/20 06/15/20 08:43 10:00 Temperature 98.6 F Pulse Rate 83 83 Respiratory 12 Rate Blood Pressure 108/64 [Left] O2 Sat by Pulse 93 Oximetry Constitutional: no acute distress, asleep Eyes: non-icteric ENT: oropharynx moist Neck: supple, no lymphadenopathy, no JVD Effort: normal Ascultation: Bilateral: diminished breath sounds Percussion: Bilateral: not dull Cardiovascular: regular rate and rhythm Gastrointestinal: normoactive bowel sounds, soft, tender (mild, LLQ, RUQ), non- distended (protuberant'), other (RUQ J-P drain) Integumentary: normal Extremities: no cyanosis, no edema, pink and warm, pulses normal Neurologic: non-focal exam (grossly), pupils equal and round, CN II-XII normal, other (slow to respond) Psychiatric: other (flat affect) CBC and BMP: 06/12/20 05:30 06/12/20 05:30 ABG, PT/INR, D-dimer: PT/INR, D-dimer PT 15.5 Sec. (12.2-14.9) H 05/22/20 09:10 INR 1.25 (0.87-1.13) H 05/22/20 09:10 Abnormal lab findings: Abnormal Labs 05/22/20 05/22/20 05/22/20 09:10 09:10 09:10 WBC 17.9 H RBC 3.60 L Hgb 8.7 L Hct 26.8 L MCV 74 L MCH 24 L RDW 24.0 H Plt Count 621 H Lymph % (Auto) [place] % (Auto) [place] # (Auto) Seg Neutrophils % Seg Neuts % (Manual) 85.0 H Lymphocytes % (Manual) 5.0 L Monocytes % (Manual) 8.0 H Eosinophils % (Manual) Seg Neutrophils # Seg Neutrophils # Man 15.2 H Lymphocytes # (Manual) 0.9 L Monocytes # (Manual) 1.4 H Eosinophils # (Manual) Basophils # (Manual) PT INR APTT Sodium Potassium Chloride Carbon Dioxide BUN Creatinine Glucose POC Glucose Lactic Acid 3.30 H* Calcium Phosphorus Magnesium Direct Bilirubin Alkaline Phosphatase Troponin T 0.271 H* NT-Pro-B Natriuret Pep Total Protein Albumin HDL Cholesterol 39 L Urine pH Urine WBC (Auto) Urine Creatinine Crossmatch 05/22/20 05/22/20 05/22/20 09:10 09:10 09:32 WBC RBC Hgb Hct MCV MCH RDW Plt Count Lymph % (Auto) [place] % (Auto) [place] # (Auto) Seg Neutrophils % Seg Neuts % (Manual) Lymphocytes % (Manual) Monocytes % (Manual) Eosinophils % (Manual) Seg Neutrophils # Seg Neutrophils # Man Lymphocytes # (Manual) Monocytes # (Manual) Eosinophils # (Manual) Basophils # (Manual) PT 15.5 H INR 1.25 H APTT 47.6 H Sodium 136 L Potassium Chloride 97.2 L Carbon Dioxide BUN 36 H Creatinine 3.8 H Glucose 133 H POC Glucose Lactic Acid Calcium 7.8 L Phosphorus Magnesium Direct Bilirubin 0.3 H Alkaline Phosphatase 248 H Troponin T NT-Pro-B Natriuret Pep 1448 H Total Protein Albumin 2.8 L HDL Cholesterol Urine pH 8.0 H Urine WBC (Auto) > 182.0 H Urine Creatinine Crossmatch 05/22/20 05/22/20 05/22/20 09:49 11:42 19:48 WBC RBC Hgb Hct MCV MCH RDW Plt Count Lymph % (Auto) [place] % (Auto) [place] # (Auto) Seg Neutrophils % Seg Neuts % (Manual) Lymphocytes % (Manual) Monocytes % (Manual) Eosinophils % (Manual) Seg Neutrophils # Seg Neutrophils # Man Lymphocytes # (Manual) Monocytes # (Manual) Eosinophils # (Manual) Basophils # (Manual) PT INR APTT Sodium Potassium Chloride Carbon Dioxide BUN Creatinine Glucose POC Glucose Lactic Acid 3.70 H* 2.10 H* Calcium Phosphorus Magnesium Direct Bilirubin Alkaline Phosphatase Troponin T NT-Pro-B Natriuret Pep Total Protein Albumin HDL Cholesterol Urine pH Urine WBC (Auto) Urine Creatinine 48.1 H Crossmatch 05/22/20 05/23/20 05/23/20 23:27 05:05 05:05 WBC 20.3 H RBC 2.73 L Hgb 6.6 L Hct 20.8 L D MCV 76 L MCH 24 L RDW 23.9 H Plt Count 546 H Lymph % (Auto) 11.5 L [place] % (Auto) [place] # (Auto) 1.2 H Seg Neutrophils % 81.5 H Seg Neuts % (Manual) Lymphocytes % (Manual) Monocytes % (Manual) Eosinophils % (Manual) Seg Neutrophils # 16.5 H Seg Neutrophils # Man Lymphocytes # (Manual) Monocytes # (Manual) Eosinophils # (Manual) Basophils # (Manual) PT INR APTT Sodium Potassium Chloride 112.5 H Carbon Dioxide 20 L BUN 26 H Creatinine 1.8 H D Glucose 135 H POC Glucose 124 H Lactic Acid Calcium 6.8 L Phosphorus Magnesium Direct Bilirubin Alkaline Phosphatase Troponin T NT-Pro-B Natriuret Pep Total Protein Albumin HDL Cholesterol Urine pH Urine WBC (Auto) Urine Creatinine Crossmatch 05/23/20 05/23/20 05/23/20 05:38 06:10 11:33 WBC RBC Hgb Hct MCV MCH RDW Plt Count Lymph % (Auto) [place] % (Auto) [place] # (Auto) Seg Neutrophils % Seg Neuts % (Manual) Lymphocytes % (Manual) Monocytes % (Manual) Eosinophils % (Manual) Seg Neutrophils # Seg Neutrophils # Man Lymphocytes # (Manual) Monocytes # (Manual) Eosinophils # (Manual) Basophils # (Manual) PT INR APTT Sodium Potassium Chloride Carbon Dioxide BUN Creatinine Glucose POC Glucose 112 H 128 H Lactic Acid Calcium Phosphorus Magnesium Direct Bilirubin Alkaline Phosphatase Troponin T NT-Pro-B Natriuret Pep Total Protein Albumin HDL Cholesterol Urine pH Urine WBC (Auto) Urine Creatinine Crossmatch See Detail 05/23/20 05/23/20 05/23/20 14:45 17:49 23:34 WBC RBC Hgb 8.4 L Hct 26.4 L MCV MCH RDW Plt Count Lymph % (Auto) [place] % (Auto) [place] # (Auto) Seg Neutrophils % Seg Neuts % (Manual) Lymphocytes % (Manual) Monocytes % (Manual) Eosinophils % (Manual) Seg Neutrophils # Seg Neutrophils # Man Lymphocytes # (Manual) Monocytes # (Manual) Eosinophils # (Manual) Basophils # (Manual) PT INR APTT Sodium Potassium Chloride Carbon Dioxide BUN Creatinine Glucose POC Glucose 112 H 116 H Lactic Acid Calcium Phosphorus Magnesium Direct Bilirubin Alkaline Phosphatase Troponin T NT-Pro-B Natriuret Pep Total Protein Albumin HDL Cholesterol Urine pH Urine WBC (Auto) Urine Creatinine Crossmatch 05/24/20 05/24/20 05/25/20 05:45 05:45 05:00 WBC 18.4 H RBC 3.35 L Hgb 8.6 L Hct 26.5 L MCV 79 L MCH 26 L RDW 23.9 H Plt Count Lymph % (Auto) [place] % (Auto) [place] # (Auto) Seg Neutrophils % Seg Neuts % (Manual) 81.0 H Lymphocytes % (Manual) 12.0 L Monocytes % (Manual) Eosinophils % (Manual) Seg Neutrophils # Seg Neutrophils # Man 14.9 H Lymphocytes # (Manual) Monocytes # (Manual) 1.3 H Eosinophils # (Manual) Basophils # (Manual) PT INR APTT Sodium Potassium 3.1 L Chloride 109.5 H Carbon Dioxide BUN Creatinine Glucose 111 H POC Glucose Lactic Acid Calcium 6.8 L 7.2 L Phosphorus Magnesium 1.00 L Direct Bilirubin Alkaline Phosphatase Troponin T NT-Pro-B Natriuret Pep Total Protein Albumin HDL Cholesterol Urine pH Urine WBC (Auto) Urine Creatinine Crossmatch 05/25/20 05/25/20 05/25/20 09:34 11:31 18:25 WBC 12.7 H RBC 3.14 L Hgb 8.0 L Hct 24.6 L MCV 78 L MCH 25 L RDW 25.0 H Plt Count Lymph % (Auto) [place] % (Auto) [place] # (Auto) Seg Neutrophils % Seg Neuts % (Manual) 94.0 H Lymphocytes % (Manual) 3.0 L Monocytes % (Manual) Eosinophils % (Manual) Seg Neutrophils # Seg Neutrophils # Man 11.9 H Lymphocytes # (Manual) 0.4 L Monocytes # (Manual) Eosinophils # (Manual) Basophils # (Manual) PT INR APTT Sodium Potassium Chloride Carbon Dioxide BUN Creatinine Glucose POC Glucose 63 L 57 L Lactic Acid Calcium Phosphorus Magnesium Direct Bilirubin Alkaline Phosphatase Troponin T NT-Pro-B Natriuret Pep Total Protein Albumin HDL Cholesterol Urine pH Urine WBC (Auto) Urine Creatinine Crossmatch 05/25/20 05/26/20 05/26/20 23:44 04:16 04:16 WBC RBC 3.07 L Hgb 8.0 L Hct 24.2 L MCV 79 L MCH 26 L RDW 24.8 H Plt Count Lymph % (Auto) [place] % (Auto) [place] # (Auto) Seg Neutrophils % Seg Neuts % (Manual) 85.0 H Lymphocytes % (Manual) 8.0 L Monocytes % (Manual) Eosinophils % (Manual) 5.0 H Seg Neutrophils # Seg Neutrophils # Man 7.9 H Lymphocytes # (Manual) 0.7 L Monocytes # (Manual) Eosinophils # (Manual) 0.5 H Basophils # (Manual) PT INR APTT Sodium Potassium 3.4 L Chloride 108.6 H Carbon Dioxide BUN Creatinine 0.7 L Glucose 101 H POC Glucose 52 L Lactic Acid Calcium 7.7 L Phosphorus Magnesium Direct Bilirubin Alkaline Phosphatase Troponin T NT-Pro-B Natriuret Pep Total Protein Albumin HDL Cholesterol Urine pH Urine WBC (Auto) Urine Creatinine Crossmatch 05/26/20 05/27/20 05/27/20 12:41 00:45 06:23 WBC RBC Hgb Hct MCV MCH RDW Plt Count Lymph % (Auto) [place] % (Auto) [place] # (Auto) Seg Neutrophils % Seg Neuts % (Manual) Lymphocytes % (Manual) Monocytes % (Manual) Eosinophils % (Manual) Seg Neutrophils # Seg Neutrophils # Man Lymphocytes # (Manual) Monocytes # (Manual) Eosinophils # (Manual) Basophils # (Manual) PT INR APTT Sodium 135 L Potassium 3.4 L Chloride Carbon Dioxide BUN Creatinine Glucose POC Glucose 64 L Lactic Acid Calcium 7.4 L Phosphorus Magnesium Direct Bilirubin Alkaline Phosphatase 566 H Troponin T NT-Pro-B Natriuret Pep Total Protein 5.3 L D Albumin 1.9 L HDL Cholesterol Urine pH Urine WBC (Auto) Urine Creatinine Crossmatch 05/28/20 05/29/20 05/29/20 04:35 17:01 18:54 WBC RBC Hgb Hct MCV MCH RDW Plt Count Lymph % (Auto) [place] % (Auto) [place] # (Auto) Seg Neutrophils % Seg Neuts % (Manual) Lymphocytes % (Manual) Monocytes % (Manual) Eosinophils % (Manual) Seg Neutrophils # Seg Neutrophils # Man Lymphocytes # (Manual) Monocytes # (Manual) Eosinophils # (Manual) Basophils # (Manual) PT INR APTT Sodium Potassium Chloride Carbon Dioxide BUN Creatinine 0.7 L Glucose POC Glucose 57 L 135 H Lactic Acid Calcium 7.7 L Phosphorus Magnesium Direct Bilirubin Alkaline Phosphatase Troponin T NT-Pro-B Natriuret Pep Total Protein Albumin HDL Cholesterol Urine pH Urine WBC (Auto) Urine Creatinine Crossmatch 05/30/20 05/30/20 05/30/20 05:42 11:30 23:28 WBC RBC Hgb Hct MCV MCH RDW Plt Count Lymph % (Auto) [place] % (Auto) [place] # (Auto) Seg Neutrophils % Seg Neuts % (Manual) Lymphocytes % (Manual) Monocytes % (Manual) Eosinophils % (Manual) Seg Neutrophils # Seg Neutrophils # Man Lymphocytes # (Manual) Monocytes # (Manual) Eosinophils # (Manual) Basophils # (Manual) PT INR APTT Sodium Potassium 3.4 L Chloride Carbon Dioxide BUN 6 L Creatinine 0.6 L Glucose 105 H POC Glucose 51 L 55 L Lactic Acid Calcium 7.5 L Phosphorus 1.80 L Magnesium Direct Bilirubin Alkaline Phosphatase Troponin T NT-Pro-B Natriuret Pep Total Protein Albumin HDL Cholesterol Urine pH Urine WBC (Auto) Urine Creatinine Crossmatch 05/31/20 05/31/20 06/04/20 05:37 11:49 18:35 WBC RBC Hgb Hct MCV MCH RDW Plt Count Lymph % (Auto) [place] % (Auto) [place] # (Auto) Seg Neutrophils % Seg Neuts % (Manual) Lymphocytes % (Manual) Monocytes % (Manual) Eosinophils % (Manual) Seg Neutrophils # Seg Neutrophils # Man Lymphocytes # (Manual) Monocytes # (Manual) Eosinophils # (Manual) Basophils # (Manual) PT INR APTT Sodium 136 L Potassium Chloride Carbon Dioxide BUN 6 L Creatinine 0.6 L Glucose POC Glucose 115 H 141 H Lactic Acid Calcium 7.5 L Phosphorus Magnesium Direct Bilirubin Alkaline Phosphatase Troponin T NT-Pro-B Natriuret Pep Total Protein Albumin HDL Cholesterol Urine pH Urine WBC (Auto) Urine Creatinine Crossmatch 06/05/20 06/05/20 06/05/20 07:43 10:42 11:35 WBC 20.4 H RBC 3.08 L Hgb 7.6 L Hct 23.5 L MCV 76 L MCH 25 L RDW 26.1 H Plt Count Lymph % (Auto) [place] % (Auto) [place] # (Auto) Seg Neutrophils % Seg Neuts % (Manual) 82.0 H Lymphocytes % (Manual) 9.0 L Monocytes % (Manual) Eosinophils % (Manual) Seg Neutrophils # Seg Neutrophils # Man 16.7 H Lymphocytes # (Manual) Monocytes # (Manual) 1.0 H Eosinophils # (Manual) Basophils # (Manual) 67.7 H PT INR APTT Sodium Potassium Chloride Carbon Dioxide BUN 8 L Creatinine 0.5 L Glucose POC Glucose 131 H Lactic Acid Calcium 7.2 L Phosphorus Magnesium Direct Bilirubin Alkaline Phosphatase Troponin T NT-Pro-B Natriuret Pep Total Protein Albumin HDL Cholesterol Urine pH Urine WBC (Auto) Urine Creatinine Crossmatch 06/05/20 06/06/20 06/06/20 16:29 12:42 22:45 WBC 13.9 H RBC 2.61 L Hgb 6.7 L 6.8 L Hct 19.8 L* 21.0 L MCV 76 L MCH 26 L RDW 25.8 H Plt Count Lymph % (Auto) [place] % (Auto) [place] # (Auto) Seg Neutrophils % Seg Neuts % (Manual) Lymphocytes % (Manual) Monocytes % (Manual) Eosinophils % (Manual) Seg Neutrophils # Seg Neutrophils # Man Lymphocytes # (Manual) Monocytes # (Manual) Eosinophils # (Manual) Basophils # (Manual) PT INR APTT Sodium Potassium Chloride Carbon Dioxide BUN Creatinine Glucose POC Glucose 118 H Lactic Acid Calcium Phosphorus Magnesium Direct Bilirubin Alkaline Phosphatase Troponin T NT-Pro-B Natriuret Pep Total Protein Albumin HDL Cholesterol Urine pH Urine WBC (Auto) Urine Creatinine Crossmatch 06/07/20 06/07/20 06/07/20 05:19 06:48 16:00 WBC RBC Hgb 6.4 L 8.7 L Hct 19.5 L* 25.5 L D MCV MCH RDW Plt Count Lymph % (Auto) [place] % (Auto) [place] # (Auto) Seg Neutrophils % Seg Neuts % (Manual) Lymphocytes % (Manual) Monocytes % (Manual) Eosinophils % (Manual) Seg Neutrophils # Seg Neutrophils # Man Lymphocytes # (Manual) Monocytes # (Manual) Eosinophils # (Manual) Basophils # (Manual) PT INR APTT Sodium Potassium Chloride Carbon Dioxide BUN Creatinine Glucose POC Glucose Lactic Acid Calcium Phosphorus Magnesium Direct Bilirubin Alkaline Phosphatase Troponin T NT-Pro-B Natriuret Pep Total Protein Albumin HDL Cholesterol Urine pH Urine WBC (Auto) Urine Creatinine Crossmatch See Detail 06/07/20 06/08/20 06/08/20 22:50 05:34 05:34 WBC 13.6 H RBC 3.55 L Hgb 9.5 L 9.5 L Hct 29.1 L 28.5 L MCV 80 L MCH 27 L RDW 22.4 H Plt Count Lymph % (Auto) [place] % (Auto) [place] # (Auto) Seg Neutrophils % Seg Neuts % (Manual) 93.0 H Lymphocytes % (Manual) 3.0 L Monocytes % (Manual) Eosinophils % (Manual) Seg Neutrophils # Seg Neutrophils # Man 12.6 H Lymphocytes # (Manual) 0.4 L Monocytes # (Manual) Eosinophils # (Manual) Basophils # (Manual) PT INR APTT Sodium Potassium 3.4 L Chloride Carbon Dioxide BUN 8 L Creatinine 0.5 L Glucose POC Glucose Lactic Acid Calcium 7.3 L Phosphorus Magnesium Direct Bilirubin Alkaline Phosphatase Troponin T NT-Pro-B Natriuret Pep Total Protein Albumin HDL Cholesterol Urine pH Urine WBC (Auto) Urine Creatinine Crossmatch 06/08/20 06/09/20 06/10/20 12:05 12:22 05:12 WBC RBC 3.19 L Hgb 8.7 L Hct 25.6 L MCV 80 L MCH 27 L RDW 22.7 H Plt Count Lymph % (Auto) [place] % (Auto) 10.4 H [place] # (Auto) Seg Neutrophils % Seg Neuts % (Manual) Lymphocytes % (Manual) Monocytes % (Manual) Eosinophils % (Manual) Seg Neutrophils # Seg Neutrophils # Man Lymphocytes # (Manual) Monocytes # (Manual) Eosinophils # (Manual) Basophils # (Manual) PT INR APTT Sodium Potassium Chloride Carbon Dioxide BUN Creatinine Glucose POC Glucose 121 H 118 H Lactic Acid Calcium Phosphorus Magnesium Direct Bilirubin Alkaline Phosphatase Troponin T NT-Pro-B Natriuret Pep Total Protein Albumin HDL Cholesterol Urine pH Urine WBC (Auto) Urine Creatinine Crossmatch 06/10/20 06/10/20 06/10/20 05:12 11:52 22:01 WBC RBC Hgb Hct MCV MCH RDW Plt Count Lymph % (Auto) [place] % (Auto) [place] # (Auto) Seg Neutrophils % Seg Neuts % (Manual) Lymphocytes % (Manual) Monocytes % (Manual) Eosinophils % (Manual) Seg Neutrophils # Seg Neutrophils # Man Lymphocytes # (Manual) Monocytes # (Manual) Eosinophils # (Manual) Basophils # (Manual) PT INR APTT Sodium Potassium 3.3 L Chloride Carbon Dioxide 33 H BUN 7 L Creatinine 0.4 L Glucose POC Glucose 109 H 68 L Lactic Acid Calcium 7.1 L Phosphorus Magnesium Direct Bilirubin Alkaline Phosphatase Troponin T NT-Pro-B Natriuret Pep Total Protein Albumin HDL Cholesterol Urine pH Urine WBC (Auto) Urine Creatinine Crossmatch 06/10/20 06/11/20 06/11/20 23:15 06:16 11:12 WBC RBC Hgb 10.0 L Hct 30.4 L MCV 81 L MCH 27 L RDW 22.8 H Plt Count Lymph % (Auto) [place] % (Auto) [place] # (Auto) Seg Neutrophils % Seg Neuts % (Manual) Lymphocytes % (Manual) Monocytes % (Manual) Eosinophils % (Manual) Seg Neutrophils # Seg Neutrophils # Man Lymphocytes # (Manual) Monocytes # (Manual) Eosinophils # (Manual) Basophils # (Manual) PT INR APTT Sodium Potassium Chloride Carbon Dioxide BUN Creatinine Glucose POC Glucose 112 H 120 H Lactic Acid Calcium Phosphorus Magnesium Direct Bilirubin Alkaline Phosphatase Troponin T NT-Pro-B Natriuret Pep Total Protein Albumin HDL Cholesterol Urine pH Urine WBC (Auto) Urine Creatinine Crossmatch 06/11/20 06/12/20 06/12/20 16:19 05:30 05:30 WBC RBC 3.63 L Hgb 9.6 L Hct 29.3 L MCV 81 L MCH 27 L RDW 23.4 H Plt Count Lymph % (Auto) [place] % (Auto) [place] # (Auto) Seg Neutrophils % Seg Neuts % (Manual) Lymphocytes % (Manual) Monocytes % (Manual) Eosinophils % (Manual) Seg Neutrophils # Seg Neutrophils # Man Lymphocytes # (Manual) Monocytes # (Manual) Eosinophils # (Manual) Basophils # (Manual) PT INR APTT Sodium Potassium Chloride Carbon Dioxide 31 H BUN 7 L Creatinine 0.5 L Glucose POC Glucose 68 L Lactic Acid Calcium 7.3 L Phosphorus Magnesium Direct Bilirubin Alkaline Phosphatase Troponin T NT-Pro-B Natriuret Pep Total Protein Albumin HDL Cholesterol Urine pH Urine WBC (Auto) Urine Creatinine Crossmatch 06/12/20 06/13/20 06/13/20 15:49 07:32 16:49 WBC RBC Hgb Hct MCV MCH RDW Plt Count Lymph % (Auto) [place] % (Auto) [place] # (Auto) Seg Neutrophils % Seg Neuts % (Manual) Lymphocytes % (Manual) Monocytes % (Manual) Eosinophils % (Manual) Seg Neutrophils # Seg Neutrophils # Man Lymphocytes # (Manual) Monocytes # (Manual) Eosinophils # (Manual) Basophils # (Manual) PT INR APTT Sodium Potassium Chloride Carbon Dioxide BUN Creatinine Glucose POC Glucose 112 H 68 L 112 H Lactic Acid Calcium Phosphorus Magnesium Direct Bilirubin Alkaline Phosphatase Troponin T NT-Pro-B Natriuret Pep Total Protein Albumin HDL Cholesterol Urine pH Urine WBC (Auto) Urine Creatinine Crossmatch 06/15/20 15:11 WBC RBC Hgb Hct MCV MCH RDW Plt Count Lymph % (Auto) [place] % (Auto) [place] # (Auto) Seg Neutrophils % Seg Neuts % (Manual) Lymphocytes % (Manual) Monocytes % (Manual) Eosinophils % (Manual) Seg Neutrophils # Seg Neutrophils # Man Lymphocytes # (Manual) Monocytes # (Manual) Eosinophils # (Manual) Basophils # (Manual) PT INR APTT Sodium Potassium Chloride Carbon Dioxide BUN Creatinine Glucose POC Glucose 117 H Lactic Acid Calcium Phosphorus Magnesium Direct Bilirubin Alkaline Phosphatase Troponin T NT-Pro-B Natriuret Pep Total Protein Albumin HDL Cholesterol Urine pH Urine WBC (Auto) Urine Creatinine Crossmatch Allied health notes reviewed: nursing
== END 2020-06-15 18:49 | DRG 871 ==
LOC: ED 08:07 → CC1 12:14 → 4A 05-25 16:55
PROVIDERS: ADMIT Internal Medicine; ATTEND Hospitalist
PROC: 06HY33Z Insertion of Infusion Device into Lower Vein, Percutaneous Approach (ICD-10-PCS; 2020-05-22)
PROC: 0T9B70Z Drainage of Bladder with Drainage Device, Via Natural or Artificial Opening (ICD-10-PCS; 2020-05-22)
PROC: 0F943ZZ Drainage of Gallbladder, Percutaneous Approach (ICD-10-PCS; 2020-05-25)
PROC: BF121ZZ Fluoroscopy of Gallbladder using Low Osmolar Contrast (ICD-10-PCS; 2020-05-25)
PROC: 30233N1 Transfusion of Nonautologous Red Blood Cells into Peripheral Vein, Percutaneous Approach (ICD-10-PCS; principal; 2020-06-07)
DX: A41.9 Sepsis, unspecified organism (principal); G92 Toxic encephalopathy; N17.0 Acute kidney failure with tubular necrosis; R65.21 Severe sepsis with septic shock; I21.A1 Myocardial infarction type 2; N30.00 Acute cystitis without hematuria; E87.1 Hypo-osmolality and hyponatremia; K81.0 Acute cholecystitis; Z20.822 Contact with and (suspected) exposure to COVID-19; D64.9 Anemia, unspecified; E87.6 Hypokalemia; E83.39 Other disorders of phosphorus metabolism; I10 Essential (primary) hypertension; E66.01 Morbid (severe) obesity due to excess calories; Z79.899 Other long term (current) drug therapy; Z79.82 Long term (current) use of aspirin; Z88.8 Allergy status to other drugs, medicaments and biological substances; Z82.49 Family history of ischemic heart disease and other diseases of the circulatory system; Z68.25 Body mass index [BMI] 25.0-25.9, adult
CPT/HCPCS: 36415; 36430; 47531; 71045; 74176; 74177; 74181; 80048; 80061; 80076; 81001; 82140; 82270; 82570; 82962; 83735; 83880; 84100; 84300; 84484; 85007; 85014; 85018; 85025; 85027; 85610; 85730; 86850; 86900; 86901; 86920; 87040; 87086; 93005; 93306; 94640; 94644; 94760; 96361; 96365; 96372; G0378; A9270-GY; J0610; J0692; J0696; J1170; J1200; J1644; J2270; J2405; J2543; J3475; J7030; J7040; J7050; J7070; P9016; Q9967; U0003